=== PATIENT | female | born 1940 | race Caucasian/White ===

== ENCOUNTER 2022-07-24 10:27 | Outpatient (CLI) | payer MEDICARE, OTHER, SELFPAY ==
--- OUTSIDE RECORDS SUMMARY | 2022-07-24 10:29 | XMS_ITS | Encounter Summary ---
:1940 Author Organization [employer] Address [address] [place] [address] Care Team Providers Name Role Phone Non Pn, Clinician Primary Care Provider Unavailable Encounter Details Date Type Department Care Team Description 06/28/2021 Lab Visit [facility] Encounter for long-term curr ent use of high risk medication; [id number] [employer] [address] [place] [address] Social History Tobacco Use Types Packs/Day Years Used Date Smoking Tobacco: Never Smokeless Tobacco: Never Alcohol Use Standard Drinks/Week Comments Yes 0 (1 standard drink = 0.6 oz pure alcoho l) Sex Assigned at Date Recorded Not on file documented as of this encounter Progress Notes Denise Davila MD - 06/28/2021 10:30 AM CST Princess, the complete blood counts show minimal anemia but the level of red cell is actually improved from last time. The liver enzyme ALT is normal. The kidney function test creatinine is slightly elevated but this is stable within your prior baselines. The uric acid is now at good level above 3 but less than 5. The current dose of allopurinol 250 mg aday is the correct dose for you and you will continue taking it at the same dose. Let me know if you have a question. INE MECHANIC documented in this encounter Plan of Treatment Upcoming Encounters Date Type Specialty Care Team Description 09/29/2022 Appointment Rheumatology Kal Davila MD [address] [facility] [place] [address] [address] (Wo rk) documented as of this encounter Procedures Procedure Name Priority Date/Time Associated Comments Diagnosis CBC AND DIFFERENTIAL Routine 06/28/2021 10:37 Encounter for Re sults for this PANEL AM AIRLINE MECHANIC long-term current procedure are in use of high risk the results medication section. CREATININE / GFR Routine 06/28/2021 10:37 Encounter for Result s for this AM AIRLINE MECHANIC long-term current procedure are in use of high risk the results medication section. COMPLETE BLOOD Routine 06/28/2021 10:37 Encounter for Results for this COUNT-W/DIFF AM AIRLINE MECHANIC long-term current procedure are in use of high risk the results medication section. URIC ACID Routine 06/28/2021 10:37 Chronic tophaceous Resul ts for this AM AIRLINE MECHANIC gout procedure are i n the results section. ALT (SGPT) Routine 06/28/2021 10:37 Encounter for Results fo r this AM AIRLINE MECHANIC long-term current procedure are in use of high risk the results medication section. documented in this encounter Results (ABNORMAL) Complete Blood Count-W/Diff (06/28/2021 10:37 AM AIRLINE MECHANIC) [facility] gist Method Time Signature WBC 9.2 3.5 - 06/28/2021 [facility] 10.5 10:46 AM AIRLINE MECHANIC LABORATORY x10(9)/L RBC 3.39 (L) 3.90 - 06/28/2021 [facility] 5.03 10:46 AM AIRLINE MECHANIC [facility] x10(12)/L Hemoglobin 11.9 (L) 12.0 - 06/28/2021 [facility] 15.5 g/dL 10:46 AM [facility]LINE [facility]IC [facility] HCT 37.4 34.9 - 06/28/2021 [facility] 44.5 % 10:46 AM [facility]IC [facility] MCV 110.3 (H) 80.0 - 06/28/2021 [facility] 100.0 fL 10:46 AM AIRLINE MECHANIC [facility] MCH 35.1 (H) 27.6 - 06/28/2021 [facility] 33.3 pg 10:46 AM [facility]IC [facility] MCHC 31.8 31.5 - 06/28/2021 [facility] 35.2 g/dL 10:46 AM [facility]LINE [facility]IC [facility] RDW 13.9 11.9 - 06/28/2021 [facility] 15.5 % 10:46 AM [facility]IC [facility] Platelets 175 150 - 450 06/28/2021 [facility] x10(9)/L 10:46 AM [facility]IC [facility] Automated NRBC 0 <=0 /100 06/28/2021 [facility] WBC 10:46 AM [facility]IC [facility] Neutrophil 7.0 1.7 - 7.0 06/28/2021 [facility] Absolute 10(9)/L 10:46 AM [facility] Lymphocyte 1.2 1.0 - 4.8 06/28/2021 [facility] Absolute 10(9)/L 10:46 AM [facility] Monocytes 0.8 0.2 - 0.9 06/28/2021 [facility] Absolute 10(9)/L 10:46 AM [facility] Eosinophil 0.1 0.0 - 0.5 06/28/2021 [facility] Absolute 10(9)/L 10:46 AM [facility] Basophil 0.0 0.0 - 0.3 06/28/2021 [facility] Absolute 10(9)/L 10:46 AM [facility] Immature Gran % 0.7 (H) 0.0 - 0.5 06/28/2021 [facility] % 10:46 AM AIRLINE [facility]IC [facility] Specimen Anatomical Collection Method / Collection Time Recei christ Time (Source) Location / Volume Laterality Blood Venipuncture / 06/28/2021 10:37 1 Unknown AM AIRLINE MECHANIC 10:37 AM AIRLINE MECHANIC Denise Davila MD LAB_1 Performing Organization Address City/[facility]/ZIP Code Phon e Number [facility] [address] [place] [phone] URIC - Uric Acid (06/28/2021 10:37 AM AIRLINE MECHANIC) P athologist Signature Uric Acid 3.2 2.6 - 6.0 06/28/2021 [facility] mg/dL 11:44 AM AIRLINE MECHANIC [facility] Specimen Anatomical Collection Method / Collection Time Recei christ Time (Source) Location / Volume Laterality Blood Venipuncture / 06/28/2021 10:37 1 Unknown AM AIRLINE MECHANIC 10:37 AM AIRLINE MECHANIC Denise Davila MD LAB_1 Performing Organization Address City/State/ZIP Code Phon e Number [facility] [address] [place] [phone] ALT - Alanine Aminotransferase (06/28/2021 10:37 AM AIRLINE MECHANIC) P athologist Signature ALT (SGPT) 14 0 - 55 U/L 06/28/2021 [facility] 11:44 AM AIRLINE MECHANIC [facility] Specimen Anatomical Collection Method / Collection Time Recei christ Time (Source) Location / Volume Laterality Blood Venipuncture / 06/28/2021 10:37 1 Unknown AM AIRLINE MECHANIC 10:37 AM AIRLINE MECHANIC Denise Davila MD LAB_1 Performing Organization Address [facility] e Number [facility] [address] [place] [phone] (ABNORMAL) CREAT - Creatinine (06/28/2021 10:37 AM AIRLINE MECHANIC) Patholo gist Method Time Signature Creatinine 1.30 (H) 0.55 - 06/28/2021 [facility] 1.02 mg/dL 11:44 AM [facility]LINE [facility]IC [facility] GFR, Estimated 39 (L) >60 06/28/2021 [facility] mL/min/1.7 11:44 AM AIRLINE MECHANIC [facility] 3m2 Specimen Anatomical Collection Method / Collection Time Recei christ Time (Source) Location / Volume Laterality Blood Venipuncture / 06/28/2021 10:37 1 Unknown AM AIRLINE MECHANIC 10:37 AM AIRLINE MECHANIC Denise Davila MD LAB_1 Performing Organization Address [facility]/ZIP [facility] [address] [place] [phone] documented in this encounter Visit Diagnoses Diagnosis Encounter for long-term current use of h igh risk medication 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
--- OUTSIDE RECORDS SUMMARY | 2022-07-24 10:29 | XMS_ITS | Encounter Summary ---
:1940 Author Organization [employer] Address [address] [address] Care Team Providers Name Role Phone Non Pn, Clinician Primary Care Provider Unavailable Reason for Visit Reason Comments Refill Encounter Details Date Type Department Care Team Description 10/03/2021 Refill [facility] Denise Allred, Refill [address] [place] [address] [address] [facility] [phone] [facility] N [address] (Wo rk) Social History Tobacco Use Types Packs/Day Years Used Date Smoking Tobacco: Never Smokeless Tobacco: Never Alcohol Use Standard Drinks/Week Comments Yes 0 (1 standard drink = 0.6 oz pure alcoho l) Sex Assigned at Date Recorded Not on file documented as of this encounter Nursing Notes Isamar Rushing LPN - 10/03/2021 3:59 PM CST She takes 2.5mg daily. COMMUNICATIONS REPAIRER Porsha Loera PA-C - 10/03/2021 3:54 PM CST Please clarify if the patient is taking daily prednisone 2.5 mg? If so, please route to Dr. Davila to advise on refill request. COMMUNICATIONS REPAIRER documented in this encounter Plan of Treatment Upcoming Encounters Date Type Specialty Care Team Description 09/29/2022 Appointment Rheumatology Kal Davila MD [address] [address] (Wo rk) documented as of this encounter Visit Diagnoses Not on filedocumented in this encounter Care Teams Rag Washer Relationship Specialty Start Date End Date Non Pn, Clinician, PCP - General 03/01/18 [place] [address] documented as of this encounter
--- OUTSIDE RECORDS SUMMARY | 2022-07-24 10:29 | XMS_ITS | Clinical Summary ---
:1940 Author Organization [employer] Address [address] [place] [address] Care Team Providers Name Role Phone Non Pn, Clinician Primary Care Provider Unavailable Source Comments You are receiving this document as you are listed as the primary care provider,follow-up provider, or the patient has been referred to you for consultation.This is in compliance with the Medicare and Medicaid EHR Incentive Program,which states Providers who transition their patient to another setting of careor provider of care or refers their patient to another provider of care shouldprovide summarycare record for each transition of care or referral. [employer]pleshow Allergies Active Allergy Reactions Severity Noted Date Comments Propoxyphene Other, see comments Medium 10/21/1999 Lethargy Sulindac Hives High 06/03/2003 Medications Medication Sig Dispensed Refills Start Date End Date Status lisinopril (AKA Take 1 tablet by 90 3 02/19/2006 Active ZESTRIL) 40 MG tablet mouth daily (every 24 hours). LW Addl Instr:Indicated for: High Blood Pressure amLODIPine (NORVASC) 5 0 08/09/2017 Active MG tablet atorvastatin (LIPITOR) 0 08/09/2017 Active 40 MG tablet omeprazole (PRILOSEC) Take 20 mg by 0 01/19/2015 Active 20 MG capsule mouth. Cholecalciferol Take 2,000 Units 0 01/19/2015 Active (VITAMIN D3) 2000 by mouth. units atenolol (TENORMIN) 25 Take 25 mg by 0 01/19/2015 Active MG tablet mouth. chlorthalidone 25 mg. 0 03/21/2016 Acti ve (HYGROTON) 25 MG tablet levothyroxine Take 1 Tablet by 90 Tablet 3 06/28/2018 Active (SYNTHROID) 100 MCG mouth daily. tablet Prescribed by primary. Furosemide (LASIX OR) 0 Active predniSONE (DELTASONE) Take 3 Tablets by 21 Tablet 3 1 Active 10 MG tablet mouth daily. For gout flare p.r.n. levothyroxine Take 75 mcg by 0 12/10/2021 Active (SYNTHROID) 75 MCG mouth daily. tablet furosemide (LASIX) 20 Take 1 Tablet by 0 07/28/2021 Active MG tablet mouth as needed. allopurinol (ZYLOPRIM) Take 250 mg/d 250 Tablet 2 03/21/2022 Active 100 MG tablet (2.5 tab) all in am. predniSONE (DELTASONE) 2.5 mg (0.5 tab) 30 Tablet 0 03/21/2022 Active 5 MG tablet every other day x 05/12/22, then stop. traMADol (ULTRAM) 50 TAKE 1 TABLET 1-2 60 Tablet 0 05/25/2022 Active MG tabletIndications: TIMES DAILY Osteoarthritis of NEEDED. multiple joints, unspecified osteoarthritis type Active Problems Problem Noted Date Chronic tophaceous gout 10/01/2020 Renal insufficiency 10/01/2020 Hyperuricemia 09/10/2020 S/P total knee arthroplasty, bilateral 03/29/2018 S/P appendectomy 03/29/2018 Restless legs syndrome (RLS) 03/29/2018 Chronic left shoulder pain 03/29/2018 Psoriatic arthritis 03/29/2018 Sensorineural hearing loss 02/22/2005 Overview: LW Onset: [id number] ; Hearing Loss Sensorineural Undiagnosed cardiac murmurs 02/22/2005 Overview: LW Modifier: functional LW Onset: [id number] ; Heart Murmur Right bundle branch block 02/22/2005 Overview: LW Onset: [id number] Obesity 05/04/2004 Overview: LW Onset: [id number] Essential hypertension 01/17/2003 Overview: Hypertension Hypothyroidism 01/17/2003 Overview: Hypothyroidism Acquired Osteoarthritis 01/17/2003 Overview: DJD Encounters Date Type Specialty Care Team Description 05/25/2022 Refill Rheumatology Denise Davila MD Refill from Last 3 Months Immunizations Name Administration Dates Next Due Flu Vac Preserv Free (3+yrs) 04/21/2013, 04/28/2009, 006, 08/10/2005, 05/04/2004 Influenza IIV3 (Trivalent) Fluzone 06/15/2020, 07/01/2019, 1 , Highdose, 65+ Yrs ([address]) 05/15/2018, 05/30/2017, 05/15/2016 , 04/28/2014 Influenza IIV4 (Quadrivalent) 06/15/2020 Fluzone, 65+ Yrs Influenza, Unspecified Formulation 06/15/2020, 05/21/2006, 1 , 05/04/2004, 06/05/2003, 07/25/2002, 08/08/2001 PCV13 (Prevnar) 05/04/2015 PPSV23 (Pneumovax) 02/19/2006 Pfizer (Comirnaty) COVID-19, 12+ Yrs 07/08/2021, 10/11/2020, 09/20/2020 Purple Top Td 07/19/1998 Tdap 09/24/2019, 03/26/2009 Zoster (Zostavax) 04/01/2009 Zoster RZV (Shingrix) 10/18/2018, 08/09/2018 Social History Tobacco Use Types Packs/Day Years Used Date Smoking Tobacco: Never Smokeless Tobacco: Never Alcohol Use Standard Drinks/Week Comments Yes 0 (1 standard drink = 0.6 oz pure alcoho l) Sex Assigned at Date Recorded Not on file Last Filed Vital Signs Vital Sign Reading Time Taken Comments Blood Pressure 141/88 03/21/2022 1:23 PM CDT Pulse 71 03/21/2022 1:23 PM CDT Temperature 35.8 ??C (96.4 ??F) 03/21/2022 1:23 PM CDT Respiratory Rate - - Oxygen Saturation - - Inhaled Oxygen Concentration - - Weight 84.9 kg (187 lb 1.6 oz) 06/28/2021 10:52 AM EXTRACTIONS TECHNOLOGIST Height 164.5 cm (5' 4.75) 03/29/2018 9:30 AM CDT Body Mass Index 31.38 03/29/2018 9:30 AM CDT Plan of Treatment Upcoming Encounters Date Type Specialty Care Team Description 09/29/2022 Appointment Rheumatology Kal Davila MD [address] [place] [address] [address] (Wo rk) Health Maintenance Due Date Last Done Comments Medicare Annual Wellness 1940 Visit Dexa 02/27/2005 COVID-19 Vaccine (4 - 09/02/2021 07/08/2021, 10/11/2020, Booster for Pfizer series) 09/20/2020 Influenza (#1) 2022 07/08/2021, 06/15/2020, 06/15/2020, Additional history exists DTaP/Tdap/Td (3 - Tdap) 09/24/2029 09/24/2019, 03/26/2009, 07/19/1998 HepA Aged Out 11/20/2012, 10/17/2012 No longer eligible based on patient 's age to complete this topic Pneumococcal 65+ Yrs Completed 05/04/2015, 02/19/2006 Zoster/Shingles Completed 10/18/2018, 08/09/2018, 07/01/2009, Additional history exists HepB Aged Out No longer eligib le based on patient 's age to complete this topic Hib Aged Out No longer eligib le based on patient 's age to complete this topic IPV (Polio) Aged Out No longer eligib le based on patient 's age to complete this topic MCV4 Aged Out No longer eligib le based on patient 's age to complete this topic Insurance Payer Benefit Plan / Subscriber ID Effective Dates Phone Addre ss Type Group MEDICARE MEDICARE [id number] 2005-Jeanine morris FOR [id number] 2018-Jeanine [phone] [address] [address] Care Teams Lens Grinder Relationship Specialty Start Date End Date Non Pn, Clinician, PCP - General 03/01/18 [place] [address]
--- OUTSIDE RECORDS SUMMARY | 2022-07-24 10:29 | XMS_ITS | Encounter Summary ---
:1940 Author Organization [facility] Address [address] [place] [address] Care Team Providers Name Role Phone Non Pn, Clinician Primary Care Provider Unavailable Encounter Details Date Type Department Care Team Description 12/13/2021 Lab Visit [facility] Chronic tophaceous gout [address] [place] [address] Social History Tobacco Use Types Packs/Day Years Used Date Smoking Tobacco: Never Smokeless Tobacco: Never Alcohol Use Standard Drinks/Week Comments Yes 0 (1 standard drink = 0.6 oz pure alcoho l) Sex Assigned at Date Recorded Not on file documented as of this encounter Plan of Treatment Upcoming Encounters Date Type Specialty Care Team Description 09/29/2022 Appointment Rheumatology Kal Davila MD [address] [facility] [address] [address] (Wo rk) documented as of this encounter Procedures Procedure Name Priority Date/Time Associated Diagnosis Comme nts URIC ACID Routine 12/13/2021 2:27 PM Chronic tophaceous Res ults for this CDT gout procedure are i n the results section . 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
--- OUTSIDE RECORDS SUMMARY | 2022-07-24 10:29 | XMS_ITS | Encounter Summary ---
:1940 Author Organization [employer] [facility] Address [address], [place] [address] Care Team Providers Name Role Phone Non Pn, Clinician Primary Care Provider Unavailable Reason for Visit Reason Comments Follow-up Encounter Details Date Type Department Care Team Description 06/28/2021 Office Visit [facility] tophac eous gout (Primary Dx); Rheumatology MD Denise Psoriatic arthritis (HRC); [address] Encounter for long-term curr [place] [address] Bl [phone] [place] [address] (Wo rk) Social History Tobacco Use Types Packs/Day Years Used Date Smoking Tobacco: Never Smokeless Tobacco: Never Alcohol Use Standard Drinks/Week Comments Yes 0 (1 standard drink = 0.6 oz pure alcoho l) Sex Assigned at Date Recorded Not on file documented as of this encounter Last Filed Vital Signs Vital Sign Reading Time Taken Comments Blood Pressure 155/74 06/28/2021 10:52 AM MACHINE ASSEMBLER Pulse 66 06/28/2021 10:52 AM MACHINE ASSEMBLER Temperature - - Respiratory Rate - - Oxygen Saturation - - Inhaled Oxygen Concentration - - Weight 84.9 kg (187 lb 1.6 oz) 06/28/2021 10:52 AM MACHINE ASSEMBLER Height - - Body Mass Index 31.38 03/29/2018 9:30 AM CDT documented in this encounter Patient Instructions Patient InstructionsDenise Davila MD - 06/28/2021 11:00 AM MACHINE ASSEMBLER Please remind yourself in the calendar that you have standing order blood test monitoring for methotrexate approximately every 3 months. The orders are in the computer but you need to go to the labs tohave them done. INE ASSEMBLER documented in this encounter Progress Notes Denise Davila MD - 06/28/2021 11:00 AM CST SUBJECTIVE: Follow-up for tophaceous gout, psoriasis with prior clinical history of possible psoriatic arthritis. History of present illness: This is the three-month follow-up for the patient. I had to cut down thedose of allopurinol from 300 mg to the current dose of 250 mg a day since her serum uric acid was 2.8 at the last clinic visit. We would like to achieve level less than 5 but not less than 3. The lowerdose has been well tolerated. The tophi over her fingers have gone away. She has not had a gout attack. She also informed me that she does not regularly take colchicine 0.6 mg every other day due to significant loose stool. Thankfully, she has not had a gout attack to require the use of prednisone. I am also in the process of tapering her methotrexate concerning that prior clinical psoriatic arthritis might have been gout. She has tapered methotrexate down to 10 mg weekly started this week. Thankfully, her psoriasis has not been active and she has not had a recurrence swollen joint. She is still working with her spine doctor to help manage her lower back pain. This has been presentfor the past several months. She was offered to do surgery but has not decided to go through it yet.She is doing physical therapy currently. She has planned to have influenza vaccine and the third dose of messenger RNA COVID vaccine at her local pharmacy. She is updated with pneumococcal vaccines. Her blood test monitoring for methotrexate and uric acid this morning are still pending. Past medical history, family and social history, current medications and adverse reactions were updated in EMR. Physical exams: BP (!) 155/74 (BP Location: Right Arm, BP Cuff Size: Regular) Pulse 66 Wt 187 lb1.6 oz (84.9 kg) BMI 31.38 kg/m?? General appearance: An elderly female who was not in acute physical distress. Skin: Completely resolved tophi over her fingers. No new tophus/tophi. No active psoriasis. Musculoskeletal exams: All 4 extremities were examined. No significant synovitis/inflammatory arthritis/dactylitis or effusion in any joint. Osteoarthritic changes finger knuckles. I Assessment and plan: 1. Chronic tophaceous gout, clinically resolved. 2. Prior history of psoriatic arthritis. Clinically inactive while tapering methotrexate. 3. Chronic long-term high-risk medication and monitoring-methotrexate. Pain is rated as 5.5. RAPID 3 score is 14.2. Her tophi have melted away completely on examination. It is important to adjust the dose of allopurinol to keep serum uric acid less than 5 but not less than 3. The result is still pending and I will let her know. She will continue allopurinol to 150 mg a day in the meantime. Since colchicine seems tocause significant GI adverse reaction, I told her to discontinue it. She will use prednisone only asneeded for a future rare gout flare. I think the we should make the best attempt to taper her off methotrexate while clinically monitor her. There is a possibility that prior swollen joint with clinical diagnosis of psoriatic arthritis could potentially be from gout attack. I will continue to taper her off methotrexate. Wrote the tapering instruction for her. She will finish it off at the end of the September of 2021. She can also discontinue folic acid when she is done with methotrexate. I told her that it is okay for her to have influenza and the third dose of messenger RNA COVID vaccines on the same day but they should be given on different sites. Follow-up again in 6 months. Earlier if she is not doing well. Total time is 30 minutes, 20 minutes counseling. 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
--- OUTSIDE RECORDS SUMMARY | 2022-07-24 10:29 | XMS_ITS | Encounter Summary ---
:1940 Author Organization [facility] Address [address] [address] Care Team Providers Name Role Phone Non Pn, Clinician Primary Care Provider Unavailable Reason for Visit Reason Comments Refill Encounter Details Date Type Department Care Team Description 07/12/2021 Refill [place] [facility] Giovanna Allred, Refill [address] [place] [address]49 [facility] [phone] [facility] [address] (Wo rk) Social History Tobacco Use Types Packs/Day Years Used Date Smoking Tobacco: Never Smokeless Tobacco: Never Alcohol Use Standard Drinks/Week Comments Yes 0 (1 standard drink = 0.6 oz pure alcoho l) Sex Assigned at Date Recorded Not on file documented as of this encounter Nursing Notes Oscar Lantigua RN - 07/12/2021 4:12 PM CST LV 06/28/21 [place] 12/27/21 Current Prednisone dosage: 2.5mg per day per patient phone call. Renewed medication per medication refill protocol. Requested Prescriptions Signed Prescriptions Disp Refills ??? predniSONE (DELTASONE) 5 MG tablet 30 Tablet 0 Sig: TAKE ONE-HALF (1/2) TABLET DAILY Authorizing Provider: GIOVANNA SHEPARD Ordering User: OSCAR LANTIGUA IER HOST/HOSTESS documented in this encounter Plan of Treatment Upcoming Encounters Date Type Specialty Care Team Description 09/29/2022 Appointment Rheumatology Kal Shepard MD [address] [id number] (Wo rk) documented as of this encounter Visit Diagnoses Not on filedocumented in this encounter Care Teams Dairy Supplies Sales Representative Relationship Specialty Start Date End Date Non Pn, Clinician, PCP - General 03/01/18 [place] [address] documented as of this encounter
--- OUTSIDE RECORDS SUMMARY | 2022-07-24 10:29 | XMS_ITS | Encounter Summary ---
:1940 Author [facility] Address [address] [place] [address] Care Team Providers Name Role Phone Non Pn, Clinician Primary Care Provider Unavailable Encounter Details Date Type Department Care Team Description 03/21/2022 Lab Visit [facility] Chronic tophaceous gout [address] [place] [address] Social History Tobacco Use Types Packs/Day Years Used Date Smoking Tobacco: Never Smokeless Tobacco: Never Alcohol Use Standard Drinks/Week Comments Yes 0 (1 standard drink = 0.6 oz pure alcoho l) Sex Assigned at Date Recorded Not on file documented as of this encounter Plan of Treatment Upcoming Encounters Date Type Specialty Care Team Description 09/29/2022 Appointment Rheumatology Kal Davila MD [address] [facility] N [address] (Wo rk) documented as of this encounter Procedures Procedure Name Priority Date/Time Associated Diagnosis Comme nts URIC ACID Routine 03/21/2022 2:00 PM Chronic tophaceous Res ults for this CDT gout procedure are i n the results section . 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
--- OUTSIDE RECORDS SUMMARY | 2022-07-24 10:29 | XMS_ITS | Encounter Summary ---
:1940 Author Organization [employer] Address [address] [place] [address] Care Team Providers Name Role Phone Non Pn, Clinician Primary Care Provider Unavailable Reason for Visit Reason Comments Refill Encounter Details Date Type Department Care Team Description 05/25/2022 Refill [place] [facility] ogDenise Maldonado Refklaudia [address] [facility] [place], [place] [address] [address] [facility] [phone] [address] [id number] (Wo rk) Social History Tobacco Use Types Packs/Day Years Used Date Smoking Tobacco: Never Smokeless Tobacco: Never Alcohol Use Standard Drinks/Week Comments Yes 0 (1 standard drink = 0.6 oz pure alcoho l) Sex Assigned at Date Recorded Not on file documented as of this encounter Nursing Notes Margarita Cameron RN - 05/25/2022 11:04 AM CDT LV: 03/21/22 [place]: 09/29/22 Last filled 12/13/21 for #60 tabs. Unable to fill per refill protocol, routing to provider. documented in this encounter Plan of Treatment Upcoming Encounters Date Type Specialty Care Team Description 09/29/2022 Appointment Rheumatology Kal Davila MD [address] [facility] [place] [id number] (Wo rk) documented as of this encounter Visit Diagnoses Diagnosis Osteoarthritis of multiple joints, unspe cified osteoarthritis type documented in this encounter Care Teams Mortgage Processor Relationship Specialty Start Date End Date Non Pn, Clinician, PCP - General 03/01/18 [place] [address] documented as of this encounter
--- OUTSIDE RECORDS SUMMARY | 2022-07-24 10:29 | XMS_ITS | Encounter Summary ---
:1940 Author Organization [facility] Address [address], [place] [address] Care Team Providers Name Role Phone Non Pn, Clinician Primary Care Provider Unavailable Reason for Referral (Routine) - New Request Specialty Diagnoses / Procedures Referred By Contact Refer red To Contact Diagnoses Chronic tophaceous gout [place], [place], Procedures Methylprednisolone 20 Mg Inj MD Latisha mena [place], [place] [address] Referral ID Status Reason Start Date Expiration Date Visits V isits Requested Authorized [id number] New Request 12/13/2021 03/14/2023 1 1 (Routine) - New Request Specialty Diagnoses / Procedures Referred By Contact Refer red To Contact Diagnoses Bicipital tendonitis of shoulder, right Bicipital tendonitis of shoulder, left [place], [place], Procedures Methylprednisolone 40 Mg Inj MD Latisha mena [place], [place] [address] Referral ID Status Reason Start Date Expiration Date Visits V isits Requested Authorized [id number] New Request 12/13/2021 03/14/2023 1 1 Reason for Visit Reason Comments Follow-up Encounter Details Date Type Department Care Team Description 12/13/2021 Office Visit Jose Davila, Chronic tophac eous gout (Primary Dx); Rheumatology MD Denise Bicipital tendonitis of shoulder, right; [address] [place] Bicipital tendonitis of shou lder, left; [place] [address] Blvd Osteoarthritis of multiple joints, unspe cified osteoarthritis type [phone] [place], [place] [phone] Social History Tobacco Use Types Packs/Day Years Used Date Smoking Tobacco: Never Smokeless Tobacco: Never Alcohol Use Standard Drinks/Week Comments Yes 0 (1 standard drink = 0.6 oz pure alcoho l) Sex Assigned at Date Recorded Not on file documented as of this encounter Last Filed Vital Signs Vital Sign Reading Time Taken Comments Blood Pressure 120/69 12/13/2021 1:45 PM CDT Pulse 71 12/13/2021 1:45 PM CDT Temperature 35.3 ??C (95.5 ??F) 12/13/2021 1:45 PM CDT Respiratory Rate - - Oxygen Saturation - - Inhaled Oxygen Concentration - - Weight - - Height - - Body Mass Index - - documented in this encounter Patient Instructions Patient InstructionsDenise Davila MD - 12/06/2021 8:07 AM CDT Get the 4th dose of COVID vaccine at your local pharmacy at least 4 months after the last one. Hold one dose of methotrexate after the vaccination. No need to hold folic acid. documented in this encounter Progress Notes Denise Davila MD - 12/13/2021 2:00 PM CDT SUBJECTIVE: Follow-up for clinic tophaceous gout, history of possible psoriatic arthritis. History of present illness: It has been about 6 months since I last saw her. I am in the process of tapering her methotrexate. She was found to have tophaceous gout a year ago and since I put her on allopurinol, her inflammatory arthritis has been under good control. I then tapered her methotrexate tofind out whether prior inflammatory arthritis might flare up. Fortunately, I was able to taper her off methotrexate completely in September of 2021. She is now on allopurinol to 150 mg a day which keep serum uric acid less than 5 but not less than 3. The tophi over the right third finger have completely resolved. She still has a small 1 over the left third PIP joint which is also smaller but is still p alpable. There is no new tophus. Six weeks ago, she underwent left knee arthroplasty revision. She is still recovering from it. She was also told that she will eventually need right arthroplasty revision in the near future. She has been using her shoulders more to push herself up from the chair and this has caused anterior shoulder pain while doing it but not at rest. This symptoms over the shoulders are present all day long withoutmorning accentuation. She takes acetaminophen which is helpful slightly but not adequately. She alsotakes tramadol as needed and would like to have a refill since this seems to be somewhat helpful forher. She has been updated with annual influenza, pneumococcal and 3 doses of messenger RNA COVID vaccines. Past medical history, family and social history, current medications and adverse reactions were updated in EMR. Physical exams: BP 120/69 (BP Location: Left Arm, BP Cuff Size: Large) Pulse 71 Temp (!) 95.5 ??F (35.3 ??C) (Skin) General appearance: An elderly female who was not in acute physical distress. Skin: Tophi over the right third finger have gone away completely. 2 mm palpable small nodule over the radial side of the dorsal left third PIP joint with possible synovitis. Musculoskeletal exams: All 4 extremities were examined. Small indurated tophus with possible minimalsynovitis of the left third PIP joint. Osteoarthritic changes finger knuckle joints. Moderate tenderness over bilateral bicipital tendon grooves. Positive Speed's test bilaterally. Status post bilateral knee arthroplasties without clinical effusion. No significant synovitis/inflammatory arthritis/dactylitis or effusion in any peripheral joints. Assessment and plan: 1. Chronic tophaceous gout. 2. Bilateral bicipital tendinitis. Pain is rated as is 7.5. RAPID 3 score is 15. She has been off methotrexate for the past almost 3 months and there is still no recurrent psoriasisor obvious clinical inflammatory arthritis. The only area that seems to be in flares over her left third PIP joint near to tophus area and that could potentially be from chronic gout over this area instead of psoriatic arthritis. The prior inflammatory arthritis of her fingers might have been the undiagnosed polyarticular gout. The symptoms over anterior shoulders are typical for bicipital tendinitis. This is most likely the result of repetitive use to push herself up from the chair while recovering from the recent left knee surgery. I suggest that she have the blood test for serum uric acid today to make sure that the current allopurinol dose of 250 mg a day is still the right dose to keep serum uric acid less than 5 but not less than 3. For the small tophus over the left third PIP joint with mild synovitis, I suggested cortisoneinjection. Similarly for her bicipital tendinitis. The injections could potentially minimize the useof tramadol for her. There were offered to her and she agreed to pursue. Consent was verbally obtained. Indication, contraindications and complications including pain/bleeding infection were discussed. Bilateral bicipital tendon grooves were prepped in a sterile fashion. Ethyl chloride spray was used as a local anesthetic agent. 0.5 mL 1% lidocaine mixed with 20 mg of methy lprednisolone was infiltrated overlying bicipital tendon over bicipital tendon groove on each side without acute complication. Similar procedure was applied over the left third PIP joint. 0.125 mL 1% lidocaine mixed with 20 mg methylprednisolone was injected into the left third PIP joint without acute complication. I will correspond with her regarding the test result and will help her adjust dose of allopurinol ifneeded. She will not need blood test monitoring for methotrexate anymore. Refilled tramadol for her. Follow-up again about 3 months. Total time is 30 minutes, 20 minutes counseling, 7 minutes procedures. documented in this encounter Plan of Treatment Upcoming Encounters Date Type Specialty Care Team Description 09/29/2022 Appointment Rheumatology Kal Davila MD [address] [facility] [place] [address] (Wo rk) Scheduled Orders Name Type Priority Associated Diagnoses Order S chedule Uric Acid Lab Routine Chronic tophaceous gout ever y 3 months for 4 Occurrences starting 2021 until 12/06/2022, 1 completed documented as of this encounter Results Uric Acid (12/13/2021 2:27 PM CDT) P athologist Signature Uric Acid 3.1 2.6 - 6.0 12/13/2021 [place] mg/dL 3:56 PM CDT LABORATORY Specimen Anatomical Collection Method / Collection Time Recei christ Time (Source) Location / Volume Laterality Blood Venipuncture / 12/13/2021 2:27 12/13/2021 2:27 Unknown PM CDT PM CDT Denise Davila MD LAB_1 Performing Organization Address City/State/ZIP Code Phon e Number [facility] [address] [place] [address] documented in this encounter Visit Diagnoses Diagnosis Chronic tophaceous gout - Primary 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
--- OUTSIDE RECORDS SUMMARY | 2022-07-24 10:29 | XMS_ITS | Encounter Summary ---
:1940 Author Organization [employer] Address [address], [place] [address] Care Team Providers Name Role Phone Non Pn, Clinician Primary Care Provider Unavailable Reason for Visit Reason Comments Follow-up Encounter Details Date Type Department Care Team Description 03/21/2022 Office Visit [facility] tophac eous Rheumatology MD Denise gout (Primary Dx) [address] [address] [phone] [place], [place] [id number] (Wo rk) Social History Tobacco Use Types [...] Index - - documented in this encounter Progress Notes Denise Davila MD - 03/21/2022 1:30 PM CDT SUBJECTIVE: Follow-up for chronic tophaceous gout. History of present illness: This is the three-month follow-up for the patient. She currently takes allopurinol 250 mg a day. When she developed tophi, I decided to taper her off methotrexate for the initially suspected psoriatic arthritis. We have been able to taper methotrexate completely without a flare of inflammatory arthritis. Looking back, her prior inflammatory arthritis might have been secondary to gouty arthritis. The tophi over the right third finger has gone away completely. Her last uricacid was checked about 3 months ago and that was 3.1. She has not had a gout attack since I last sawher and has not developed a new tophus. She has had bilateral knee arthroplasties. The right knee was 22 years ago. The left knee TKA the first time was 27 years ago and the second time was in 10/2021. She had a fall onto both knees about 1 month ago at her great- grandchildren birthday. The left knee was slightly bruise and this has been ping nful on weight-bearing activities. She is about to see her orthopedic knee surgeon next week. Past medical history, family and social history, current medications andadverse reactions were updated in EMR. Physical exams: BP (!) 141/88 (BP Location: Left Arm, BP Cuff Size: Regular) Pulse 71 Temp (!) 96.4 ??F (35.8 ??C) (Skin) General appearance: A middle-aged female who was not in acute physical distress. Skin: No clinical tophus/tophi. Musculoskeletal exams: All 4 extremities were examined. Osteoarthritic changes finger knuckles. Status post bilateral knee arthroplasty. A faint bruise over the left anterior knee and minimal left prosthetic knee effusion. No significant synovitis/inflammatory arthritis/dactylitis or effusion in any other remaining joints. Assessment and plan: Chronic tophaceous gout. 2. 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 Pain is rated as 6.5. RAPID 3 score is 17. For her gout, she has continued to do well. The tophus has dissolved completely. Will make sure thather serum uric acid is not less than 3 but less than 5. Will check her serum uric acid today. She will continue allopurinol 250 mg a day in the meantime and I will keep her informed on the test resultsI will let her know if we need to adjust the dose of serum uric acid accordingly. I will leave the decision as to how to evaluate her left prosthetic knee effusion to her knee surgeon. Since she has developed worsening pain after a recent fall, this should be evaluated for a possible prosthetic loosening. Follow-up again in 6 months, earlier if she is not doing well. Total time is 20 minutes, 15 minutes counseling. documented in this encounter Plan of Treatment Upcoming Encounters Date Type Specialty Care Team Description 09/29/2022 Appointment Rheumatology Kal Davila MD [address] [facility] [place] [id number] (Wo rk) documented as of this encounter Results Uric Acid (03/21/2022 2:00 PM CDT) P athologist Signature Uric Acid 3.1 2.6 - 6.0 03/21/2022 [place] mg/dL 4:13 PM CDT LABORATORY Specimen Anatomical Collection Method / Collection Time Recei christ Time (Source) Location / Volume Laterality Blood Venipuncture / 03/21/2022 2:00 03/21/2022 2:00 Unknown PM CDT PM CDT Denise Davila MD LAB_1 Performing Organization Address City/State/ZIP Code Phon e Number [facility] [address] [place] [address] documented in this encounter Visit Diagnoses Diagnosis Chronic tophaceous gout - Primary 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
--- OUTSIDE RECORDS SUMMARY | 2022-07-24 10:30 | XMS_ITS | Encounter Summary ---
:1940 Author Organization [employer] Address [address], [place] [address] Care Team Providers Name Role Phone Non Pn, Clinician Primary Care Provider Unavailable Reason for Referral (Routine) - Closed Specialty Diagnoses / Procedures Referred By Contact Refer red To Contact Diagnoses Psoriatic arthritis (HRC) Nodule of finger of left hand Denise Davila, Procedures Triamcinolone Acet Inj Nos: (per 10 mg) [address] [place], [place] [address] Referral ID Status Reason Start Date Expiration Date Visits Requ ested Visits Authorized [id number] Closed 09/10/2020 12/10/2021 1 1 [employer] Reason for Visit Reason Comments Follow-up Encounter Details Date Type Department Care Team Description 09/10/2020 Office Visit Neha Davila, Psoriatic arth ritis (HRC) (Primary Dx); Rheumatology MD Denise High risk medication use; [address] Osteoarthritis of multiple j oints, unspecified osteoarthritis type; [place] [address] [address]vd Nodule of finger of left hand; [phone] [place], [place] Hyperurice richard [address] Social History Tobacco Use Types Packs/Day Years Used Date Smoking Tobacco: Never Smokeless Tobacco: Never Alcohol Use Standard Drinks/Week Comments Yes 0 (1 standard drink = 0.6 oz pure alcoho l) Sex Assigned at Date Recorded Not on file documented as of this encounter Last Filed Vital Signs Vital Sign Reading Time Taken Comments Blood Pressure 143/57 09/10/2020 2:44 PM [employer] Pulse 73 09/10/2020 2:44 PM [employer] Temperature 36.3 ??C (97.3 ??F) 09/10/2020 2:44 PM [employer] Respiratory Rate - - Oxygen Saturation - - Inhaled Oxygen Concentration - - Weight - - Height - - Body Mass Index - - documented in this encounter Patient Instructions Patient InstructionsDenise Davila MD - 09/10/2020 2:45 PM [employer] Get online and an account with [email or web address] at [email or web address] documented in this encounter Progress Notes Denise Davila MD - 09/10/2020 2:45 PM CST SUBJECTIVE: Follow-up for clinical psoriatic arthritis. History of present illness: This is a 6-month follow-up for the patient. She currently takes methotrexate 20 mg weekly, folic acid 1 mg a day and prednisone 2.5 mg a day. The palmar psoriasis has gone away since we gave her methotrexate and prednisone. She reported having trouble with bending the leftthird PIP joint which is also slightly swollen. On visual inspection, there is a faint yellowish nodule that which might be suggestive of tophus/tophi. She has moderate chronic kidney disease with GFR approximately 41 and also takes hydrochlorothiazide as an antihypertensive regimen and occasional Lasix if she has swelling. She has never had an acute podagra, however. Her serum uric acid was 8.3 whenthis was last checked in 2018. The other joints are not swollen. However, she also has suffered frompain related to osteoarthritis over her fingers, lower back and hip areas. She cannot take anti-inflammatory medication due to renal insufficiency. The use of Tylenol does not help for her at all. She used to take tramadol and would like to consider this medication again as tramadol once to twice a day seemed to be quite helpful for her. It was well tolerated without significant drowsiness. She is aware that tramadol is a pain medication and she will not mix it with alcohol or other sedative/benzodiazepine. Past medical history, family and social history, current medications and adverse reactions were updated in EMR. Physical exams: BP (!) 143/57 (BP Location: Left Arm, BP Cuff Size: Regular) Pulse 73 Temp 97.3 ??F (36.3 ??C) (Temporal Artery) General appearance: A middle-aged female who was not in acute physical distress. Skin: No psoriasis over her palms or anywhere else. 2-3 small yellowish nodules over dorsal left third PIP joint, possible tophi. No similar tophus/tophi anywhere else. Musculoskeletal exams: All 4 extremities were examined. Moderate synovitis left third PIP joint. Overlying suspected tophi as described above. Osteoarthritic changes finger knuckle joints. Osteoarthritic changes over toe IP joints. Patellar crepitus without signs of inflammation or effusion. No significant synovitis/inflammatory arthritis/dactylitis or effusion in any other remaining joints. Assessment and plan: 1. Psoriatic arthritis. 2. 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 3. Background history of stage 3 chronic kidney disease requiring diuretic as an antihypertensive medication as needed Lasix for swelling. 4. Hyperuricemia. 5. Generalized osteoarthritis. 6. Chronic long-term high-risk medication and monitoring. The patient has 1 swollen joint over the left third PIP joint. Over this area, they also small whitish yellowish nodules which might be suggestive of tophi. This patient certainly has risk factors including chronic kidney disease with estimated GFR of 41, and diuretic treatment and hyperuricemia. And therefore, arthrocentesis will be helpful to help confirm this diagnosis. Intra-articular cortisone injection can also be helpful since she has only 1 swollen inflamed joint. For her psoriatic arthritis, this is under good control currently except for the left third PIP joint which is slightly swollen and this might be from gout as described above. The current methotrexate seems to be helpful. Psoriasis has gone away completely. No need to change the long-term treatment and she will continue methotrexate 20 mg weekly together with folic acid 1 mg a day. We also mutually agree to stay on prednisone 2.5 mg a day in the meantime. Discussed with her about my clinical impression as above. We discussed about the arthrocentesis which will be diagnostic and therapeutic. This was offered to her and she agreed to pursue. Indication, contraindications and complications including pain/bleeding infection were discussed. Left third PIP joint was prepped in a sterile fashion. Ethyl chloride spray was used as local anesthetic agent. 20 gauge needle was introduced into the left third PIP nodules with negative suction force. Small amount of fluid was obtained this was placed on a slight for crystal analysis. 0.125 mL 1% lidocaine mixed with 10 mg of methylprednisolone was injected into the left third PIP joint without acute complication. I suggested that she have a clinical follow-up in 2 weeks with Porsha.. 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 I would like to seeher back in person in about 3 months. She is due to have a blood test monitoring but she has left the clinic. We will remind her to have blood test monitoring for CBC, ALT in creatinine for methotrexate and additional uric acid for the newbaseline. Total time 40 minutes, 25 minutes counseling, 10 minutes procedure. [employer] Denise Davila MD - 09/10/2020 2:45 PM CST [place], the aspirate from the left 3rd finger nodule is negative for gout (no uric acid crystals seen). I will continue to monitor this to see if there is a new finding in different other area or these nodules are bigger. In that case, I am planning to put a needle into it again. (as the small nodule(s) might miss the needle.) I hope the cortisone injection has helped. [employer] documented in this encounter Plan of Treatment Upcoming Encounters Date Type Specialty Care Team Description 09/29/2022 Appointment Rheumatology Kal Davila MD [address] [place] [address] [address] (Wo rk) documented as of this encounter Procedures Procedure Name Priority Date/Time Associated Diagnosis Comme nts CRYSTALS,SYNOVIAL Routine 09/10/2020 3:48 PM Nodule of finger of Results for this [employer] left hand procedure are i n the results section. documented in this encounter Results (ABNORMAL) URIC - Uric Acid (09/24/2020 12:14 PM [employer]) P athologist Signature Uric Acid 9.6 (H) 2.6 - 6.0 09/24/2020 [facility] mg/dL 2:00 PM [employer] LABORATORY Specimen Anatomical Collection Method / Collection Time Recei christ Time (Source) Location / Volume Laterality Blood Venipuncture / 09/24/2020 12:14 Unknown PM [employer] 12:14 PM [employer] Denise Davila MD LAB_1 Performing Organization Address City/State/ZIP Code Phon e Number [facility] [address] [place] [address] SYCRY - Synovial Fluid Crystals (09/10/2020 3:48 PM [employer]) [facility] gist Method Time Signature Synovial Finger, left 09/10/2020 [facility] Source middle 10:07 PM LABORATORY [employer] Crystals, No Crystals No Crystals 09/10/2020 [facility] Synovial Seen Seen 10:07 PM LABORATORY [employer] Specimen Anatomical Collection Method Collection Time Receive d Time (Source) Location / / Volume Laterality Synovial Fluid ENTIRE FINGER / 09/10/2020 3:48 PM 08/14 5:00 Unknown [employer] PM [employer] Denise Davila MD LAB_1 Performing Organization Address City/State/ZIP Code Phon e Number [facility] [address] [place] [address] documented in this encounter Visit Diagnoses Diagnosis Psoriatic arthritis (HRC) - Primary Psoriatic arthropathy High risk medication use Encounter for long-term (current) use of other medications Osteoarthritis of multiple joints, unspe cified osteoarthritis type Nodule of finger of left hand Hyperuricemia Other abnormal blood chemistry documented in this encounter Care Teams Solution Design And Analysis Manager Relationship Specialty Start Date End Date Non Pn, Clinician, PCP - General 03/01/18 [place] [address] documented as of this encounter
--- OUTSIDE RECORDS SUMMARY | 2022-07-24 10:30 | XMS_ITS | Encounter Summary ---
:1940 Author Organization [employer] Address [address] [place] [address] Care Team Providers Name Role Phone Non Pn, Clinician Primary Care Provider Unavailable Reason for Visit Reason Comments PHONE CALL TO PATIENT Medication Questions Encounter Details Date Type Department Care Team Description 02/09/2020 Telephone [facility] [address], PHONE [place] TO PATIENT; Rheumatology MD Denise Medication Questions [address] [facility] [place] [address] [phone] (Wo rk) Social History Tobacco Use Types Packs/Day Years Used Date Smoking Tobacco: Never Smokeless Tobacco: Never Alcohol Use Standard Drinks/Week Comments Yes 0 (1 standard drink = 0.6 oz pure alcoho l) Sex Assigned at Date Recorded Not on file documented as of this encounter Nursing Notes Shauna Lindsay LPN - 02/09/2020 3:16 PM CDT Pt called saying [facility] will not fill her prednisone and they will be [facility], [facility] to [facility] pharmacology professor Had to do a reorder. Pt is with . documented in this encounter Plan of Treatment Upcoming Encounters Date Type Specialty Care Team Description 09/29/2022 Appointment Rheumatology Kla Davila MD [address] [facility] [place] N [address] (Wo rk) documented as of this encounter Visit Diagnoses Not on filedocumented in this encounter Care Teams Pyrotechnist Relationship Specialty Start Date End Date Non Pn, Clinician, PCP - General 03/01/18 [place] [address] documented as of this encounter
--- OUTSIDE RECORDS SUMMARY | 2022-07-24 10:30 | XMS_ITS | Encounter Summary ---
:1940 Author Organization [employer] Address [address] [place] [address] Care Team Providers Name Role Phone Non Pn, Clinician Primary Care Provider Unavailable Reason for Visit Reason Comments RESULTS, TEST Encounter Details Date Type Department Care Team Description 05/13/2020 Notes/Orders [place] Rheumatol uriel Davila, [address] [facility] [place] [address] [address] [phone] [address] Y[address]IRA [place] N [id number] (Wo rk) Social History Tobacco Use Types Packs/Day Years Used Date Smoking Tobacco: Never Smokeless Tobacco: Never Alcohol Use Standard Drinks/Week Comments Yes 0 (1 standard drink = 0.6 oz pure alcoho l) Sex Assigned at Date Recorded Not on file documented as of this encounter Progress Notes Denise Davila MD - 05/13/2020 4:22 PM CDT Outside labs: On 05/13/2020, normal ALT, serum creatinine 1.7, white blood cells 7.62, hemoglobin 11.8, platelet count 209. documented in this encounter Plan of Treatment Upcoming Encounters Date Type Specialty Care Team Description 09/29/2022 Appointment Rheumatology Kal Davila MD [address] [place] N [id number] (Wo rk) documented as of this encounter Visit Diagnoses Not on filedocumented in this encounter Care Teams Sql Engineer Relationship Specialty Start Date End Date Non Pn, Clinician, PCP - General 03/01/18 [place] [address] documented as of this encounter
--- OUTSIDE RECORDS SUMMARY | 2022-07-24 10:30 | XMS_ITS | Encounter Summary ---
:1940 Author Organization [employer] Address [address] [place] [address] Care Team Providers Name Role Phone Non Pn, Clinician Primary Care Provider Unavailable Reason for Visit Reason Comments RESULTS, TEST Encounter Details Date Type Department Care Team Description 03/22/2021 Telephone [place] [facility] Denise Allred, RESULTS, TEST [address] [facility] [place] [address] [address] [facility] [phone] [facility] N [address] (Wo rk) Social History Tobacco Use Types Packs/Day Years Used Date Smoking Tobacco: Never Smokeless Tobacco: Never Alcohol Use Standard Drinks/Week Comments Yes 0 (1 standard drink = 0.6 oz pure alcoho l) Sex Assigned at Date Recorded Not on file documented as of this encounter Nursing Notes Shauna Lindsay LPN - 03/22/2021 3:17 PM CDT Called patient back and they verbalized an understanding. They were encouraged to call back with anyfuture questions or concerns. BÁRBARAT Denise Davila MD - 03/22/2021 2:48 PM CDT Please call to let her know that I have sent this message to her Mychart. Princess, the blood test for the uric acid is too low. You are currently taking 300 mg/d (1 tab). I would like you to reduce the allopurinol dose to 250 mg/d. I have faxed a Rx of 100-mg tab and you will take 2.5 tabs/d. OK to take 300-mg a day now until you have received the 100-mg in the mail. Do not use 300 -mg tab anymore after you have received the 100-mg tab in the mail. The kidney function test (creatinine) is lower and better than last time. The liver test ALT is normal. The complete blood counts show minimal anemia and minimally low platelet count-no worry. Continueto monitor. documented in this encounter Plan of Treatment Upcoming Encounters Date Type Specialty Care Team Description 09/29/2022 Appointment Rheumatology Kal Davila MD [address] [facility] [place] [address] [address] (Wo rk) documented as of this encounter Visit Diagnoses Not on filedocumented in this encounter Care Teams Abstract Maker Relationship Specialty Start Date End Date Non Pn, Clinician, PCP - General 03/01/18 [place] [address] documented as of this encounter
--- OUTSIDE RECORDS SUMMARY | 2022-07-24 10:30 | XMS_ITS | Encounter Summary ---
:1940 Author Organization [employer] Address [address], [place] [address] Care Team Providers Name Role Phone Non Pn, Clinician Primary Care Provider Unavailable Reason for Visit Reason Comments Follow-up Encounter Details Date Type Department Care Team Description 03/22/2021 Office Visit Marialuisa Ralph tophac eous gout (Primary Dx); Rheumatology MD Denise Psoriatic arthritis (HRC); [address] Encounter for long-term curr [place] [address] [address] [phone] [place] [address] (Wo rk) Social History Tobacco Use Types Packs/Day Years Used Date Smoking Tobacco: Never Smokeless Tobacco: Never Alcohol Use Standard Drinks/Week Comments Yes 0 (1 standard drink = 0.6 oz pure alcoho l) Sex Assigned at Date Recorded Not on file documented as of this encounter Last Filed Vital Signs Vital Sign Reading Time Taken Comments Blood Pressure 135/73 03/22/2021 1:18 PM CDT Pulse 78 03/22/2021 1:18 PM CDT Temperature 35.7 ??C (96.3 ??F) 03/22/2021 1:18 PM CDT Respiratory Rate - - Oxygen Saturation - - Inhaled Oxygen Concentration - - Weight 80.3 kg (177 lb) 03/22/2021 1:18 PM CDT Height - - Body Mass Index 29.68 03/29/2018 9:30 AM CDT documented in this encounter Progress Notes Denise Davila MD - 03/22/2021 1:30 PM CDT SUBJECTIVE: Follow-up for tophaceous gout, history of prior psoriatic arthritis versus polyarticulargout. History of present illness: This is the three-month follow-up for the patient. She currently takes allopurinol. Her serum uric acid when this was last checked on 01/11/2021 was at good therapeutic level 3.4. She also takes colchicine 0.3 mg every other day prophylactically. She has not had a gout attack to require the use of prednisone. 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 She is nowon methotrexate 20 mg weekly. This has been under good control as well. It is not clear whether prior polyarticular inflammatory arthritis associated with psoriatic arthritis or it was polyarticular gout. She has had mechanical low back pain. She recently had an MRI with [facility] on 03/01/2021. The results will be scanned into the media. She brought the results with her. 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 Subarticular encroachment of the descendingleft L5 root at L4-L5, mild subarticular stenosis bilaterally at L3-L4 and on the right at L2-L3 without impingement. Facet joint arthritis moderate on the left L4-L5 and mild at the scattered levels elsewhere. No vertebral compression fracture. She is following this problem with a spine doctor in the near future. According to her, there is no distal leg radiation to suggest radiculopathy, fever, saddle paresthesia or true muscle weakness Past medical history, family and social history, current medications and adverse reactions were updated in EMR. Physical exams: BP 135/73 (BP Location: Left Arm, BP Cuff Size: Large) Pulse 78 Temp (!) 96.3 ??F (35.7 ??C) (Skin) Wt 177 lb (80.3 kg) BMI 29.68 kg/m?? General appearance: An elderly female who was not in acute physical distress. Musculoskeletal exams: All 4 extremities were examined. There is a complete resolution of the small tophus over right third PIP and DIP joints. There is also complete resolution of the tophus over the left third PIP joint. Minimal, if any, synovitis left third PIP joint without significant tenderness. Osteoarthritic changes finger knuckle joints. No significant synovitis/inflammatory arthritis/dactylitis or effusion in any other remaining joints. Assessment and plan: 1. Tophaceous gout, therapeutic serum uric acid level. 2. 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 3. Chronic long-term high-risk medication and monitoring. 4. Degenerative lumbar spine disease. She has no more clinical tophi. Her serum uric it is at good therapeutic level. I will continue her on allopurinol at the current dose 300 mg a day. I will also continue on colchicine low-dose 0.3 mg every-other day until the small spongy feeling over the left third PIP is gone completely since I think that this is representing low-grade gouty inflammatory arthritis. At this point, I think that I will make the attempt to taper her methotrexate by 2.5 mg weekly sinceprior polyarticular inflammatory arthritis could potentially be polyarticular gout. She was happy with the idea. She will slowly reduce methotrexate by 2.5 mg every month until she is at 10 mg a week and she will stay at that dose. Continue folic acid 1 mg a day and blood test monitoring every 3 months for standing orders. I do not have additional treatment recommendation for degenerative lumbar spine disease. Discussed about physical therapy, ergonomics, [id number] acetaminophen as needed. Cortisone injection if this is deemed to be accessory and she will discuss this with her spine doctor at the upcoming visit. Follow-up again in 3 months. Blood tests for serum uric acid, CBC/ALT/creatinine before the appointment. Total time is 30 minutes, 20 minutes counseling. 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
--- OUTSIDE RECORDS SUMMARY | 2022-07-24 10:30 | XMS_ITS | Encounter Summary ---
:1940 Author Organization [facility] Address [address] [place] [address] Care Team Providers Name Role Phone Non Pn, Clinician Primary Care Provider Unavailable Encounter Details Date Type Department Care Team Description 10/11/2020 Immunization [place] COVID Vaccine Encou nter for Program administration of vaccine [address] (Primary Dx) [place], [place] [id number] Social History Tobacco Use Types Packs/Day Years Used Date Smoking Tobacco: Never Smokeless Tobacco: Never Alcohol Use Standard Drinks/Week Comments Yes 0 (1 standard drink = 0.6 oz pure alcoho l) Sex Assigned at Date Recorded Not on file documented as of this encounter Plan of Treatment Upcoming Encounters Date Type Specialty Care Team Description 09/29/2022 Appointment Rheumatology Kal Davila MD [address] [facility] [place] [address] [address] (Wo rk) documented as of this encounter Visit Diagnoses Diagnosis Encounter for administration of vaccine - Primary documented in this encounter Care Teams Relations Manager Relationship Specialty Start Date End Date Non Pn, ClinicianMD PCP - General 03/01/18 [place] [address] documented as of this encounter
--- OUTSIDE RECORDS SUMMARY | 2022-07-24 10:30 | XMS_ITS | Encounter Summary ---
:1940 Author Organization [facility] Address [address] [place] [address] Care Team Providers Name Role Phone Non Pn, Clinician Primary Care Provider Unavailable Encounter Details Date Type Department Care Team Description 09/24/2020 Lab Visit [facility] High risk medication use; [address] Nodule of finger of left louie d; [place] [address] Hyperuricemia [phone] Social History Tobacco Use Types Packs/Day Years Used Date Smoking Tobacco: Never Smokeless Tobacco: Never Alcohol Use Standard Drinks/Week Comments Yes 0 (1 standard drink = 0.6 oz pure alcoho l) Sex Assigned at Date Recorded Not on file documented as of this encounter Progress Notes Denise Davila MD - 09/24/2020 1:20 PM CST Princess, the complete blood counts show minimal anemia (slightly low hemoglobin) and this is not concerning. The kidney function test (creatinine) is higher but this is stable within your previous baselines. The liver enzyme (ALT) is normal. The uric acid is high and higher than last results, as expected. No change of treatment plan based on these results. Porsha will help start medication to lower levelof uric acid for you next week. WORKER Denise Davila MD - 09/24/2020 1:20 PM CST Princess, I forgot to mention that the analysis of fluid aspirate to confirm gout will be sent to you lee separate email after the pathologist has reviewed it. As discussed during the visit, it is positive based on my personal inspection on the microscope in the clinic here. WORKER documented in this encounter Plan of Treatment Upcoming Encounters Date Type Specialty Care Team Description 09/29/2022 Appointment Rheumatology Kal Davila MD [address] [facility] [address] [id number] (Wo rk) documented as of this encounter Procedures Procedure Name Priority Date/Time Associated Comments Diagnosis CBC AND DIFFERENTIAL Routine 09/24/2020 12:14 High risk Res ults for this PANEL PM SOAP WORKER medication use procedure are in the results section. CREATININE / GFR Routine 09/24/2020 12:14 High risk Results for this PM SOAP WORKER medication use procedure are in the results section. COMPLETE BLOOD Routine 09/24/2020 12:14 High risk Results f or this COUNT-W/DIFF PM SOAP WORKER medication use procedure are in the results section. URIC ACID Routine 09/24/2020 12:14 Nodule of finger of Resu lts for this PM SOAP WORKER left hand procedure are i n the results section. ALT (SGPT) Routine 09/24/2020 12:14 High risk Results for this PM SOAP WORKER medication use procedure are in the results section. documented in this encounter Results (ABNORMAL) Complete Blood Count-W/Diff (09/24/2020 12:14 PM SOAP WORKER) [facility] gist Method Time Signature WBC 9.1 3.5 - 10.5 09/24/2020 [facility] x10(9)/L 12:23 PM SOAP [facility] RBC 3.57 (L) 3.90 - 09/24/2020 [facility] 5.03 12:23 PM SOAP WORK[facility] x10(12)/L Hemoglobin 11.8 (L) 12.0 - 09/24/2020 [facility] 15.5 g/dL 12:23 PM SOAP [facility] HCT 35.6 34.9 - 09/24/2020 [facility] 44.5 % 12:23 PM [facility] MCV 99.7 80.0 - 09/24/2020 [facility] 100.0 fL 12:23 PM SOAP [facility] MCH 33.1 27.6 - 09/24/2020 [facility] 33.3 pg 12:23 PM SOAP WORK[facility] MCHC 33.1 31.5 - 09/24/2020 [facility] 35.2 g/dL 12:23 PM SOAP [facility] RDW 12.9 11.9 - 09/24/2020 [facility] 15.5 % 12:23 PM SOAP [facility] Platelets 241 150 - 450 09/24/2020 [facility] x10(9)/L 12:23 PM SOAP WORK[facility] Automated NRBC 0 <=0 /100 09/24/2020 [facility] WBC 12:23 PM [facility] Neutrophil 7.7 (H) 1.7 - 7.0 09/24/2020 [facility] Absolute 10(9)/L 12:23 PM [facility] Lymphocyte 1.0 1.0 - 4.8 09/24/2020 [facility] Absolute 10(9)/L 12:23 PM SOAP [facility] Monocytes 0.3 0.2 - 0.9 09/24/2020 [facility] Absolute 10(9)/L 12:23 PM SOAP [facility] Eosinophil 0.1 0.0 - 0.5 09/24/2020 [facility] Absolute 10(9)/L 12:23 PM SOAP WORK[facility] Basophil 0.0 0.0 - 0.3 09/24/2020 [facility] Absolute 10(9)/L 12:23 PM SOAP [facility] Immature Gran % 0.7 (H) 0.0 - 0.5 09/24/2020 [facility] % 12:23 PM SOAP WORK[facility] Specimen Anatomical Collection Method / Collection Time Recei christ Time (Source) Location / Volume Laterality Blood Venipuncture / 09/24/2020 12:14 Unknown PM SOAP WORKER 12:14 PM SOAP WORKER Denise Davila MD LAB_1 Performing Organization Address City/State/ZIP Code Phon e Number [facility] [id number] [place] [address] (ABNORMAL) URIC - Uric Acid (09/24/2020 12:14 PM SOAP WORKER) P athologist Signature Uric Acid 9.6 (H) 2.6 - 6.0 09/24/2020 [facility] mg/dL 2:00 PM SOAP [facility] Specimen Anatomical Collection Method / Collection Time Recei christ Time (Source) Location / Volume Laterality Blood Venipuncture / 09/24/2020 12:14 1 Unknown PM SOAP WORKER 12:14 PM SOAP WORKER Denise Davila MD LAB_1 Performing Organization Address [facility]/ZIP Code Phon e Number [facility] [address] [place] [phone] (ABNORMAL) CREAT - Creatinine - standing every 2 - 3 months (09/24/2020 12:14 PM SOAP WORKER) Patholo gist Method Time Signature Creatinine 1.40 (H) 0.55 - 09/24/2020 [facility] 1.02 mg/dL 2:00 PM SOAP [facility] GFR, Estimated 36 (L) >60 09/24/2020 [facility] mL/min/1.7 2:00 PM SOAP WORKER [facility] 3m2 Specimen Anatomical Collection Method / Collection Time Recei christ Time (Source) Location / Volume Laterality Blood Venipuncture / 09/24/2020 12:14 1 Unknown PM SOAP WORKER 12:14 PM SOAP WORKER Denise Davila MD LAB_1 Performing Organization Address [facility]/ZIP Code Phon e Number [facility] [address] [place] [address] ALT - Alanine Aminotransferase - standing every 2 - 3 months (09/24/2020 12:14 PM SOAP WORKER) P athologist Signature ALT (SGPT) 25 0 - 55 U/L 09/24/2020 [facility] 2:00 PM SOAP WORKER [facility] Specimen Anatomical Collection Method / Collection Time Recei christ Time (Source) Location / Volume Laterality Blood Venipuncture / 09/24/2020 12:14 1 Unknown PM SOAP WORKER 12:14 PM SOAP WORKER Denise Davila MD LAB_1 Performing Organization Address City/[facility]/ZIP Code Phon e Number [facility] [id number] [place] [address] documented in this encounter Visit Diagnoses Diagnosis High risk medication use Encounter for long-term (current) use of other medications Nodule of finger of left hand Hyperuricemia Other abnormal blood chemistry documented in this encounter Care Teams Station Manager Relationship Specialty Start Date End Date Non Pn, Clinician, PCP - General 03/01/18 [place] [address] documented as of this encounter
--- OUTSIDE RECORDS SUMMARY | 2022-07-24 10:30 | XMS_ITS | Encounter Summary ---
:1940 Author Organization [facility] Address [address] [place] [address] Care Team Providers Name Role Phone Non Pn, Clinician Primary Care Provider Unavailable Encounter Details Date Type Department Care Team Description 02/06/2020 Orders Only Initial Department Provider, Ernie, [facility] IWONA ECHEVARRIA MD [place], [place] [address] Interface provider [phone] [place] [address] Social History Tobacco Use Types Packs/Day Years Used Date Smoking Tobacco: Never Smokeless Tobacco: Never Alcohol Use Standard Drinks/Week Comments Yes 0 (1 standard drink = 0.6 oz pure alcoho l) Sex Assigned at Date Recorded Not on file documented as of this encounter Plan of Treatment Upcoming Encounters Date Type Specialty Care Team Description 09/29/2022 Appointment Rheumatology Kal Davila MD [address] [facility] [address] [address] (Wo rk) documented as of this encounter Procedures Procedure Name Priority Date/Time Associated Diagnosis Comme nts LABORATORY REPORT 02/06/2020 Results fo r this procedure are in the resu lts section. documented in this encounter Results LABORATORY REPORT (02/06/2020) Narrative This result has an attachment that is no t available. Interface Provider DUMMY/OTHER/AR documented in this encounter Visit Diagnoses Not on filedocumented in this encounter Care Teams Mill Tender Warm Up Relationship Specialty Start Date End Date Non Pn, ClinicianMD PCP - General 03/01/18 [place] [address] documented as of this encounter
--- OUTSIDE RECORDS SUMMARY | 2022-07-24 10:30 | XMS_ITS | Encounter Summary ---
:1940 Author Organization [facility] Address [address] [place] [address] Care Team Providers Name Role Phone Non Pn, Clinician Primary Care Provider Unavailable Encounter Details Date Type Department Care Team Description 01/11/2021 Lab Visit [facility] tophaceous gout; Laboratory Encounter for long-term curr ent use of high risk medication [address] [place] [address] Social History Tobacco Use Types Packs/Day Years Used Date Smoking Tobacco: Never Smokeless Tobacco: Never Alcohol Use Standard Drinks/Week Comments Yes 0 (1 standard drink = 0.6 oz pure alcoho l) Sex Assigned at Date Recorded Not on file documented as of this encounter Progress Notes Denise Davila MD - 01/11/2021 10:10 AM CDT Princess, your uric acid level is good level, less than 5 but not less than 3. The current dose of allopurinol is good dose 300 mg/d. I have faxed the new Rx of allopurinol to your pharmacy. However, this is the 300-mg tab so that youwill take it only 1 tab/d. Please make sure that you check this carefully when you receive pill in your mail. The kidney function test creatinine is stable. The blood counts and liver enzyme are unremarkable-not worrying. documented in this encounter Plan of Treatment Upcoming Encounters Date Type Specialty Care Team Description 09/29/2022 Appointment Rheumatology Kal Davila MD [address] [facility] [place] [address] [address] (Wo rk) documented as of this encounter Procedures Procedure Name Priority Date/Time Associated Comments Diagnosis CBC AND DIFFERENTIAL Routine 01/11/2021 10:23 Encounter for Re sults for this PANEL AM CDT long-term current procedure are in use of high risk the results medication section. CREATININE / GFR Routine 01/11/2021 10:23 Encounter for Result s for this AM CDT long-term current procedure are in use of high risk the results medication section. COMPLETE BLOOD Routine 01/11/2021 10:23 Encounter for Results for this COUNT-W/DIFF AM CDT long-term current procedure are in use of high risk the results medication section. URIC ACID Routine 01/11/2021 10:23 Chronic tophaceous Resul ts for this AM CDT gout procedure are i n the results section. ALT (SGPT) Routine 01/11/2021 10:23 Encounter for Results fo r this AM CDT long-term current procedure are in use of high risk the results medication section. documented in this encounter Results (ABNORMAL) Complete Blood Count-W/Diff (01/11/2021 10:23 AM CDT) [facility] gist Method Time Signature WBC 10.9 (H) 3.5 - 01/11/2021 [facility] 10.5 10:38 AM CDT LABORATORY x10(9)/L RBC 3.48 (L) 3.90 - 01/11/2021 [facility] 5.03 10:38 AM CDT LABORATORY x10(12)/L Hemoglobin 12.0 12.0 - 01/11/2021 [facility] 15.5 g/dL 10:38 AM CDT LABORATORY HCT 36.3 34.9 - 01/11/2021 [facility] 44.5 % 10:38 AM CDT LABORATORY MCV 104.3 (H) 80.0 - 01/11/2021 [facility] 100.0 fL 10:38 AM CDT LABORATORY MCH 34.5 (H) 27.6 - 01/11/2021 [facility] 33.3 pg 10:38 AM CDT LABORATORY MCHC 33.1 31.5 - 01/11/2021 [facility] 35.2 g/dL 10:38 AM CDT LABORATORY RDW 15.3 11.9 - 01/11/2021 [facility] 15.5 % 10:38 AM CDT LABORATORY Platelets 173 150 - 450 01/11/2021 [facility] x10(9)/L 10:38 AM CDT LABORATORY Automated NRBC 0 <=0 /100 01/11/2021 [facility] WBC 10:38 AM CDT LABORATORY Neutrophil 9.5 (H) 1.7 - 7.0 01/11/2021 [facility] Absolute 10(9)/L 10:38 AM CDT LABORATORY Lymphocyte 0.7 (L) 1.0 - 4.8 01/11/2021 [facility] Absolute 10(9)/L 10:38 AM CDT LABORATORY Monocytes 0.5 0.2 - 0.9 01/11/2021 [facility] Absolute 10(9)/L 10:38 AM CDT LABORATORY Eosinophil 0.1 0.0 - 0.5 01/11/2021 [facility] Absolute 10(9)/L 10:38 AM CDT LABORATORY Basophil 0.0 0.0 - 0.3 01/11/2021 [facility] Absolute 10(9)/L 10:38 AM CDT LABORATORY Immature Gran % 0.6 (H) 0.0 - 0.5 01/11/2021 [facility] % 10:38 AM CDT LABORATORY Specimen Anatomical Collection Method / Collection Time Recei christ Time (Source) Location / Volume Laterality Blood Venipuncture / 01/11/2021 10:23 Unknown AM CDT 10:34 AM CDT Denise Davila MD LAB_1 Performing Organization Address City/State/ZIP Code Phon e Number [facility] [address] [place] [address] ALT - Alanine Aminotransferase (01/11/2021 10:23 AM CDT) P athologist Signature ALT (SGPT) 15 0 - 55 U/L 01/11/2021 [facility] 11:22 AM CDT LABORATORY Specimen Anatomical Collection Method / Collection Time Recei christ Time (Source) Location / Volume Laterality Blood Venipuncture / 01/11/2021 10:23 1 Unknown AM CDT 10:34 AM CDT Denise Davila MD LAB_1 Performing Organization Address [facility]/ZIP Code Phon e Number [facility] [address] [place] [address] (ABNORMAL) CREAT - Creatinine (01/11/2021 10:23 AM CDT) Patholo gist Method Time Signature Creatinine 1.40 (H) 0.55 - 01/11/2021 [facility] 1.02 mg/dL 11:22 AM CDT LABORATORY GFR, Estimated 36 (L) >60 01/11/2021 [facility] mL/min/1.7 11:22 AM CDT LABORATORY 3m2 Specimen Anatomical Collection Method / Collection Time Recei christ Time (Source) Location / Volume Laterality Blood Venipuncture / 01/11/2021 10:23 1 Unknown AM CDT 10:34 AM CDT Denise Davila MD LAB_1 Performing Organization Address [facility]/ZIP Code Phon e Number [facility] [address] [place] [address] URIC - Uric Acid (01/11/2021 10:23 AM CDT) P athologist Signature Uric Acid 3.4 2.6 - 6.0 01/11/2021 [facility] mg/dL 11:22 AM CDT LABORATORY Specimen Anatomical Collection Method / Collection Time Recei christ Time (Source) Location / Volume Laterality Blood Venipuncture / 01/11/2021 10:23 1 Unknown AM CDT 10:34 AM CDT Denise Davila MD LAB_1 Performing Organization Address [facility]/ZIP Code Phon e Number [facility] [address] [place] [address] documented in this encounter Visit Diagnoses 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
--- OUTSIDE RECORDS SUMMARY | 2022-07-24 10:30 | XMS_ITS | Encounter Summary ---
:1940 Author Organization [employer] Address [address] [place] [address] Care Team Providers Name Role Phone Non Pn, Clinician Primary Care Provider Unavailable Encounter Details Date Type Department Care Team Description 08/15/2019 Lab Visit [facility] Psoriatic arthritis (HRC); [address] [facility] [place] [address] Social History Tobacco Use Types Packs/Day Years Used Date Smoking Tobacco: Never Smokeless Tobacco: Never Sex Assigned at Date Recorded Not on file documented as of this encounter Plan of Treatment Upcoming Encounters Date Type Specialty Care Team Description 09/29/2022 Appointment Rheumatology Kal Davila MD [address] [facility] [address] (Wo rk) documented as of this encounter Procedures Procedure Name Priority Date/Time Associated Comments Diagnosis CBC AND DIFFERENTIAL Routine 08/15/2019 11:29 Psoriatic arthri tis Results for this PANEL [facility] [employer] ([facility]C) procedure are in High risk the results medication use section. CREATININE / GFR Routine 08/15/2019 11:29 Psoriatic arthritis Results for this AM [employer] [employer] (HRC) procedure are in High risk the results medication use section. COMPLETE BLOOD Routine 08/15/2019 11:29 Psoriatic arthritis Re sults for this COUNT-W/DIFF [facility] [employer] [facility] (HRC) procedure are in High risk the results medication use section. HEPATITIS C ANTIBODY, Routine 08/15/2019 11:29 Psoriatic arthr itis Results for this WITH REFLEX [facility] [employer] [facility] (HRC) procedure are in High risk the results medication use section. C-REACTIVE PROTEIN Routine 08/15/2019 11:29 Psoriatic arthriti s Results for this AM [facility] [employer] (HRC) procedure are in High risk the results medication use section. HBSAG (HEPATITIS B Routine 08/15/2019 11:29 Psoriatic arthriti s Results for this SURFACE AG) [facility] [employer] [facility] (HRC) procedure are in High risk the results medication use section. HEPATITIS B CORE,AB Routine 08/15/2019 11:29 Psoriatic arthrit is Results for this AM [facility] [employer] (HRC) procedure are in High risk the results medication use section. ALT (SGPT) Routine 08/15/2019 11:29 Psoriatic arthritis Resu lts for this AM [employer] (HRC) procedure are in High risk the results medication use section. ESR Routine 08/15/2019 11:29 Psoriatic arthritis Resu lts for this AM [employer] (HRC) procedure are in High risk the results medication use section. TB GOLD, QUANTIFERON Routine 08/15/2019 11:27 Psoriatic arthri tis Results for this [facility] [employer] [employer] (HRC) procedure are in High risk the results medication use section. documented in this encounter Results (ABNORMAL) Complete Blood Count-W/Diff (08/15/2019 11:29 [facility]) [facility] Time Signature WBC 8.7 3.5 - 10.5 08/15/2019 [place] x10(9)/L 11:43 [facility] RBC 4.03 3.90 - 08/15/2019 [place] 5.03 11:43 [facility] x10(12)/L Hemoglobin 12.1 12.0 - 08/15/2019 [place] 15.5 g/dL 11:43 [facility] HCT 37.9 34.9 - 08/15/2019 [place] 44.5 % 11:43 [facility] MCV 94.0 80.0 - 08/15/2019 [place] 100.0 fL 11:43 [facility] MCH 30.0 27.6 - 08/15/2019 [place] 33.3 pg 11:43 [facility] MCHC 31.9 31.5 - 08/15/2019 [place] 35.2 g/dL 11:43 [facility] RDW 13.1 11.9 - 08/15/2019 [place] 15.5 % 11:43 [facility] Platelets 230 150 - 450 08/15/2019 [place] x10(9)/L 11:43 [facility] Automated NRBC 0 <=0 /100 08/15/2019 [place] WBC 11:43 [facility] Neutrophil 5.8 1.7 - 7.0 08/15/2019 [place] Absolute 10(9)/L 11:43 [facility] Lymphocyte 2.1 1.0 - 4.8 08/15/2019 [place] Absolute 10(9)/L 11:43 [facility] Monocytes 0.5 0.2 - 0.9 08/15/2019 [place] Absolute 10(9)/L 11:43 [facility] Eosinophil 0.2 0.0 - 0.5 08/15/2019 [place] Absolute 10(9)/L 11:43 [facility] Basophil 0.0 0.0 - 0.3 08/15/2019 [place] Absolute 10(9)/L 11:43 [facility] Immature Gran % 0.8 (H) 0.0 - 0.5 08/15/2019 [place] % 11:43 [facility] Specimen Anatomical Collection Method / Collection Time Recei christ Time (Source) Location / Volume Laterality Blood Venipuncture / 08/15/2019 11:29 0 Unknown [facility] 11:29 [facility] Denise Davila MD LAB_1 Performing Organization Address City/State/ZIP Code Phon e Number [facility] [address] [place] [address] HCAB - Hepatitis C Virus Marta with Reflex In-House (08/15/2019 11:29 [facility]) [facility] Method Time Signature Hepatitis C Negative Negative 08/15/2019 [place] Antibody (Non (Non 4:04 [facility] Reactive) Reactive) Comment: Antibodies to HCV not detected. Does not exclude the possiblity of exposure to HCV. Specimen Anatomical Collection Method / Collection Time Recei christ Time (Source) Location / Volume Laterality Blood Venipuncture / 08/15/2019 11:29 0 Unknown [facility] 11:29 [facility] Denise Davila MD LAB_1 Performing Organization Address City/State/ZIP Code Phon e Number [facility] [address] [place] [address] HBAG - Hepatitis B Surf Ag (08/15/2019 11:29 [facility]) [facility] Method Time Signature Hepatitis B Negative Negative 08/15/2019 [place] Surface (Non (Non 4:04 PM [facility] Antigen Reactive) Reactive) Specimen Anatomical Collection Method / Collection Time Recei christ Time (Source) Location / Volume Laterality Blood Venipuncture / 08/15/2019 11:29 0 Unknown [facility] 11:29 [facility] Denise Davila MD LAB_1 Performing Organization Address City/[facility] Phon e Number [facility] [address] [place] [address] HBCB - Hepatitis B Core Antibody Total (08/15/2019 11:29 [facility] [facility]) [facility] Method Time Signature Hepatitis B Negative Negative 08/15/2019 [place] Core Antibody (Non (Non 4:04 PM [facility] Reactive) Reactive) Specimen Anatomical Collection Method / Collection Time Recei christ Time (Source) Location / Volume Laterality Blood Venipuncture / 08/15/2019 11:29 0 Unknown [facility] 11:29 [facility] Denise Davila MD LAB_1 Performing Organization Address [facility] Phon e Number [facility] [address] [place] [address] (ABNORMAL) ESR - Sedimentation Rate (08/15/2019 11:29 [facility] [facility]) [facility] Signature Sedimentation Rate 49 (H) 0 - 20 08/15/2019 [place] mm/hr 12:21 [facility] Specimen Anatomical Collection Method / Collection Time Recei christ Time (Source) Location / Volume Laterality Blood Venipuncture / 08/15/2019 11:29 0 Unknown [facility] [facility] 11:29 [facility] Denise Davila MD LAB_1 Performing Organization Address [facility] Phon e Number [facility] [address] [place] [address] CRP - C Reactive Protein (08/15/2019 11:29 [facility] [employer]) athologist Signature C-Reactive 0.7 0.0 - 0.7 08/15/2019 [place] Protein mg/dL 12:26 PM [facility] Specimen Anatomical Collection Method / Collection Time Recei christ Time (Source) Location / Volume Laterality Blood Venipuncture / 08/15/2019 11:29 0 Unknown [facility] [facility] 11:29 [facility] Denise Davila MD LAB_1 Performing Organization Address [facility] Code Phon e Number [facility] [address] [place] [address] ALT - Alanine Aminotransferase (08/15/2019 11:29 AM [facility] [employer]) athologist Signature ALT (SGPT) 16 0 - 55 U/L 08/15/2019 [place] 12:26 [facility] Specimen Anatomical Collection Method / Collection Time Recei christ Time (Source) Location / Volume Laterality Blood Venipuncture / 08/15/2019 11:29 0 Unknown [facility] [facility] 11:29 [facility] Denise Davila MD LAB_1 Performing Organization Address [facility] Phon e Number [facility] [address] [place] [address] (ABNORMAL) CREAT - Creatinine (08/15/2019 11:29 AM [facility] [employer] [facility]) [facility] gist Method Time Signature Creatinine 1.40 (H) 0.55 - 08/15/2019 [place] 1.02 mg/dL 12:26 [facility] GFR, Estimated 36 (L) >60 08/15/2019 [place] mL/min/1.7 12:26 [facility] 3m2 GFR, Est If 41 (L) >60 08/15/2019 [place] mL/min/1.7 12:26 [facility] [place] 3m2 Specimen Anatomical Collection Method / Collection Time Recei christ Time (Source) Location / Volume Laterality Blood Venipuncture / 08/15/2019 11:29 0 Unknown [facility] [facility] 11:29 [facility] [facility] Denise Davila MD LAB_1 Performing Organization Address [facility]/State/ZIP Code Phon e Number [facility] [address] [facility] [place], [place] [address] TB Gold, Quantiferon (08/15/2019 11:27 AM [facility] [employer] [facility]) [facility] Method Time Signature TB Gold, Negative Negative 08/19/2019 [place] QuantiFeron 7:49 [facility] Plus TB Nil Value 0.03 08/19/2019 [place] 7:49 [facility] TB1 Minus Nil 0.01 08/19/2019 [place] Value 7:49 [facility] TB2 Minus Nil <0.01 08/19/2019 [place] Value 7:49 [facility] Mitogen Minus 6.69 08/19/2019 [place] Nil Value 7:49 [facility] Specimen Anatomical Collection Method / Collection Time Recei christ Time (Source) Location / Volume Laterality Blood Venipuncture / 08/15/2019 11:27 0 Unknown [facility] [facility] 11:29 [facility] Narrative [facility] - 08/19/2019 7:49 A M [facility] [employer] [facility] Nil ?TB1-Nil ? TB2-Nil ?Mitogen-Nil ??Result ?Interpretation (IU/ml) ??(IU/mL) ? (IU/mL) ?(IU/mL) <=8.0 ? >=0.35 & ? Any ?Any ?Positive ?M. tuberculosis ?>=25% Nil ?infection likely <=8.0 ? Any ?>=0.35 & ? Any ?Positive ?M. tuberculosis ? >=25% Nil ? infection likely <=8.0 ? <0.35 or ? <0.35 or ? >=0.50 ? Negative ?M. tuberculosis ?>=0.35 & ? >=0.35 & ?infection NOT ?<25% Nil ? <25% Nil ?likely <=8.0 ? <0.35 or ? <0.35 or ? <0.50 ? Indeterminate ??M. tuberculosis ?>=0.35 & ? >=0.35 & ?infection cannot ?<25% Nil ? <25% Nil ?be determined >8.0 ?Any ?Any ?Any ? Indeterminate ??M. tuberculosis ? infection cannot ? be determined. Important: Diagnosing or excluding tuber culosis disease, and assessing the probability of LTBI, requires a combination of epidemiological, historical, medical, and diagnostic findings that should be [place] en into account when interpreting QFT-Pl us results. See general guidance on the diagnosis and treatment of TB disease and LTBI (https://www.cdc.gov/tb/publications/guidelines/default.htm). The magnitude of the measured IFN-gamma level cannot be correlated to stage or degree of infection, level of immune responsiveness, or likelihood for progression to active disease. A positive TB respons e in persons who are negative to Mitogen is rare, but has been seen in patients with TB disease. This indicates the IFN-gamma response to TB antigens is greater than that to Mitogen, which is possible a s the level of Mitogen does not maximall y stimulate IFN-gamma production by lymphocytes. Denise Davila MD LAB_1 Performing Organization Address City/State/ZIP Code Phon e Number [facility] [address] [place] [address] documented in this encounter Visit Diagnoses Diagnosis Psoriatic arthritis (HRC) Psoriatic arthropathy High risk medication use Encounter for long-term (current) use of other medications documented in this encounter Care Teams Jumpbasting Collar Baster Relationship Specialty Start Date End Date Non Pn, Clinician, PCP - General 03/01/18 [place] [address] documented as of this encounter
--- OUTSIDE RECORDS SUMMARY | 2022-07-24 10:30 | XMS_ITS | Encounter Summary ---
:1940 Author Organization [employer] Address [address], [place] [address] Care Team Providers Name Role Phone Non Pn, Clinician Primary Care Provider Unavailable Reason for Visit Reason Comments Follow-up Encounter Details Date Type Department Care Team Description 01/11/2021 Office Visit [facility] tophac eous gout (Primary Dx); Rheumatology MD Denise Psoriatic arthritis (HRC); [address] Encounter for long-term curr [place] [address] [address] [phone] [place] [address] (Wo rk) Social History Tobacco Use Types Packs/Day Years Used Date Smoking Tobacco: Never Smokeless Tobacco: Never Alcohol Use Standard Drinks/Week Comments Yes 0 (1 standard drink = 0.6 oz pure alcoho l) Sex Assigned at Date Recorded Not on file documented as of this encounter Last Filed Vital Signs Vital Sign Reading Time Taken Comments Blood Pressure 132/67 01/11/2021 10:49 AM CDT Pulse 79 01/11/2021 10:49 AM CDT Temperature 36.1 ??C (96.9 ??F) 01/11/2021 10:49 AM CDT Respiratory Rate - - Oxygen Saturation - - Inhaled Oxygen Concentration - - Weight 81.2 kg (179 lb) 01/11/2021 10:49 AM CDT Height - - Body Mass Index 30.02 03/29/2018 9:30 AM CDT documented in this encounter Progress Notes Denise Davila MD - 01/11/2021 11:00 AM CDT SUBJECTIVE: Follow-up for chronic tophaceous gout, history of psoriatic arthritis. History of present illness: This is a 2 month follow-up for the patient. I started her on allopurinol 2 months ago. The dose was slowly increased to the current dose of 300 mg a day without a significant cutaneous are non cutaneous adverse reactions. She had to discontinue colchicine due to significant loose stool. Reducing the dose to 0.6 mg every other day was still associated with significant loose stool. She has continue methotrexate 20 mg weekly, folic acid 1 mg a day and prednisone 2.5 mg a day. Since she stopped colchicine, her joints especially over the right third PIP and DIP joints are slightly swollen again. She just had a blood test this morning and the results are still pending. Past medical history, family and social history, current medications and adverse reactions were updated in EMR. Physical exams: BP 132/67 (BP Location: Left Arm, BP Cuff Size: Large) Pulse 79 Temp (!) 96.9 ??F (36.1 ??C) (Skin) Wt 179 lb (81.2 kg) BMI 30.02 kg/m?? General appearance: An elderly female who was not in acute physical distress. Skin: A small 2 mm tophus over the left dorsal third PIP, and possible right fourth PIP joint areas. Musculoskeletal exams: All 4 extremities were examined. Mild synovitis left third PIP, and right second PIP joints. No significant synovitis/inflammatory arthritis/dactylitis or effusion in any other remaining joints. Osteoarthritic changes finger knuckle joints. Assessment and plan: 1. Chronic tophaceous gout. 2. 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 3. Chronic long-term high-risk medication and monitoring. The patient has clinical inflammatory arthritis over bilateral third PIP joints, at the areas where she had gout attack in the past. The lack of prophylaxis with colchicine most likely precipitate this. I told her to try to use colchicine 0.3 mg every other day to see if this is more tolerated since itcan help to prevent gout attack while we are titrating the dose of allopurinol. She will continue colchicine 300 mg a day in the meantime. I will look at her blood test results today and will help titrate the dose of allopurinol to keep the level less than 5 but not less than 3. For her current mild gout attack, a we increase the dose of prednisone to 20 mg a day for 1 week and then she will get it down back to her baseline of 2.5 mg a day. I will continue methotrexate 20 mg a week and folic acid 1 mg a day in the meantime. When her gout attack is over and the serum uric acid is at good therapeutic level, I will slowly taper her off methotrexate to see if her inflammatory arthritis is coming back. If this is not come back, her prior clini eliana psoriatic arthritis could potentially be from polyarticular gout. I will correspond with her regarding the test results as above. I would like to see her back again in about 2 months. Blood tests for monitoring for methotrexate and serum uric acid again before the appointment. Total time is 30 minutes, 20 minutes counseling. 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
--- OUTSIDE RECORDS SUMMARY | 2022-07-24 10:30 | XMS_ITS | Encounter Summary ---
:1940 Author Organization [employer] Address [address], [place] [address] Care Team Providers Name Role Phone Non Pn, Clinician MD Primary Care Provider Unavailable Reason for Visit Reason Comments Refill Encounter Details Date Type Department Care Team Description 06/26/2020 Refill [facility] [address], Refill Rheumatology [address] [place] [address] [place] [address] [phone] (Wo rk) Social History Tobacco Use Types Packs/Day Years Used Date Smoking Tobacco: Never Smokeless Tobacco: Never Alcohol Use Standard Drinks/Week Comments Yes 0 (1 standard drink = 0.6 oz pure alcoho l) Sex Assigned at Date Recorded Not on file documented as of this encounter Nursing Notes Lubna Cameron RN - 06/28/2020 8:11 AM CST LV: 02/03/2020 FV: none (follow up in 2-3 months) Pt contacted and states that she is currently taking 2.5 mg daily. Encouraged pt to schedule appointment. Renewed medication per medication refill protocol. Requested Prescriptions Signed Prescriptions Disp Refills ??? predniSONE (DELTASONE) 5 MG tablet 30 Tablet 3 Sig: Take 0.5 Tablets by mouth daily. Authorizing Provider: GIOVANNA SHEPARD Ordering User: LUBNA CAMERON CAPPER documented in this encounter Plan of Treatment Upcoming Encounters Date Type Specialty Care Team Description 09/29/2022 Appointment Rheumatology Kal Shepard MD [address] [id number] (Wo rk) documented as of this encounter Visit Diagnoses Not on filedocumented in this encounter Care Teams Chro Relationship Specialty Start Date End Date Non Pn, Clinician, PCP - General 03/01/18 [place] [address] documented as of this encounter
--- OUTSIDE RECORDS SUMMARY | 2022-07-24 10:30 | XMS_ITS | Encounter Summary ---
:1940 Author Organization [employer] Address [address] [place] [address] Care Team Providers Name Role Phone Non Pn, Clinician Primary Care Provider Unavailable Reason for Visit Reason Comments RESULTS, TEST Encounter Details Date Type Department Care Team Description 02/02/2020 Notes/Orders [place] [facility] uriel [facility] [address] [facility] [place] [address] [address] [phone] [facility] Mary Ann [place] [address] (Wo rk) Social History Tobacco Use Types Packs/Day Years Used Date Smoking Tobacco: Never Smokeless Tobacco: Never Alcohol Use Standard Drinks/Week Comments Yes 0 (1 standard drink = 0.6 oz pure alcoho l) Sex Assigned at Date Recorded Not on file documented as of this encounter Progress Notes Denise Davila MD - 02/02/2020 8:18 AM CDT Outside labs: On 01/30/2020, white blood cells 6.91, hemoglobin 11.3, MCV 105, RDW 12.6, platelet count 204, normal ALT, serum creatinine 1.4 (0.5-1.5). documented in this encounter Plan of Treatment Upcoming Encounters Date Type Specialty Care Team Description 09/29/2022 Appointment Rheumatology Kal Davila MD [address] [facility] Mary Ann [place] N [address] (Wo rk) documented as of this encounter Visit Diagnoses Not on filedocumented in this encounter Care Teams Handbag Frames Inspector Relationship Specialty Start Date End Date Non Pn, Clinician, PCP - General 03/01/18 [place] [address] documented as of this encounter
--- OUTSIDE RECORDS SUMMARY | 2022-07-24 10:30 | XMS_ITS | Encounter Summary ---
:1940 Author Organization [facility] Address [address] [place] [address] Care Team Providers Name Role Phone Non Pn, Clinician Primary Care Provider Unavailable Encounter Details Date Type Department Care Team Description 09/20/2020 Immunization [place] COVID Vaccine Encou nter for Program administration of vaccine [address] (Primary Dx) [place], [place] [id number] Social History Tobacco Use Types Packs/Day Years Used Date Smoking Tobacco: Never Smokeless Tobacco: Never Alcohol Use Standard Drinks/Week Comments Yes 0 (1 standard drink = 0.6 oz pure alcoho l) Sex Assigned at Date Recorded Not on file documented as of this encounter Plan of Treatment Upcoming Encounters Date Type Specialty Care Team Description 09/29/2022 Appointment Rheumatology Kal Davila MD [address] [facility] [place] [address] [address] (Wo rk) documented as of this encounter Visit Diagnoses Diagnosis Encounter for administration of vaccine - Primary documented in this encounter Care Teams Child Protective Investigator Relationship Specialty Start Date End Date Non Pn, ClinicianMD PCP - General 03/01/18 [place] [address] documented as of this encounter
--- OUTSIDE RECORDS SUMMARY | 2022-07-24 10:30 | XMS_ITS | Encounter Summary ---
:1940 Author Organization [facility] Address [address] [place] [address] Care Team Providers Name Role Phone Non Pn, Clinician Primary Care Provider Unavailable Encounter Details Date Type Department Care Team Description 03/27/2021 Orders Only Initial Department Provider, Ernie, [facility] IWONA ECHEVARRIA MD [place], [place] [address] Interface provider [phone] [place] [address] Social History Tobacco Use Types Packs/Day Years Used Date Smoking Tobacco: Never Smokeless Tobacco: Never Alcohol Use Standard Drinks/Week Comments Yes 0 (1 standard drink = 0.6 oz pure alcoho l) Sex Assigned at Date Recorded Not on file documented as of this encounter Plan of Treatment Upcoming Encounters Date Type Specialty Care Team Description 09/29/2022 Appointment Rheumatology Kal Davila MD [address] [facility] N [id number] (Wo rk) documented as of this encounter Procedures Procedure Name Priority Date/Time Associated Diagnosis Comme nts MRI-SCAN 03/27/2021 Results for thi s procedure are in the resu lts section. documented in this encounter Results MRI-SCAN (03/27/2021) Anatomical Region Laterality Modality Other Narrative This result has an attachment that is no t available. Interface Provider DUMMY/OTHER/AR documented in this encounter Visit Diagnoses Not on filedocumented in this encounter Care Teams Inweaver Relationship Specialty Start Date End Date Non Pn, ClinicianMD PCP - General 03/01/18 [place] [address] documented as of this encounter
--- OUTSIDE RECORDS SUMMARY | 2022-07-24 10:30 | XMS_ITS | Encounter Summary ---
:1940 Author Organization [facility] Address [address] [place] [address] Care Team Providers Name Role Phone Non Pn, Clinician Primary Care Provider Unavailable Encounter Details Date Type Department Care Team Description 10/21/2019 Notes/Orders Neha Rheumatol uriel Davila, [address] [facility] [place] [address] [address] [phone] [facility] [address] [id number] (Wo rk) Social History Tobacco Use Types Packs/Day Years Used Date Smoking Tobacco: Never Smokeless Tobacco: Never Alcohol Use Standard Drinks/Week Comments Yes 0 (1 standard drink = 0.6 oz pure alcoho l) Sex Assigned at Date Recorded Not on file documented as of this encounter Plan of Treatment Upcoming Encounters Date Type Specialty Care Team Description 09/29/2022 Appointment Rheumatology Kal Davila MD [address] [facility] N [id number] (Wo rk) documented as of this encounter Visit Diagnoses Not on filedocumented in this encounter Care Teams Supervisor [employer] Relationship Specialty Start Date End Date Non Pn, ClinicianMD PCP - General 03/01/18 [place] [address] documented as of this encounter
--- OUTSIDE RECORDS SUMMARY | 2022-07-24 10:30 | XMS_ITS | Encounter Summary ---
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); Rheumatology PA-C Hyperuricemia; [id number] [facility] [address] Renal insufficiency; [place] [address] Blvd Essential hypertension; [phone] [place], [place] Psoriatic arthritis (HRC); [address] Generalized osteoarthritis; [phone] (Wo rk) Encounter for long-term current use of h igh risk medication Social History Tobacco Use Types Packs/Day Years Used Date Smoking Tobacco: Never Smokeless Tobacco: Never Alcohol Use Standard Drinks/Week Comments Yes 0 (1 standard drink = 0.6 oz pure alcoho l) Sex Assigned at Date Recorded Not on file documented as of this encounter Last Filed Vital Signs Vital Sign Reading Time Taken Comments Blood Pressure 150/62 10/01/2020 11:08 AM TREAD CUTTER Pulse 57 10/01/2020 11:08 AM TREAD CUTTER Temperature 36.3 ??C (97.3 ??F) 10/01/2020 11:08 AM TREAD CUTTER Respiratory Rate - - Oxygen Saturation - - Inhaled Oxygen Concentration - - Weight 78.9 kg (174 lb) 10/01/2020 11:08 AM TREAD CUTTER Height - - Body Mass Index 29.18 03/29/2018 9:30 AM CDT documented in this encounter Patient Instructions Patient InstructionsPorsha Loera PA-C - 10/01/2020 11:15 AM CST 1. Prednisone 30 mg/d for 7 days -Repeat as needed for flares 2. Colchicine 0.6 mg (1 tablet) daily or 0.6 mg (1 tablet) every other day 3. In 1 week - if your symptoms are improved/resolved - go ahead and start allopurinol 50 mg/d for 2weeks, increasing by 50 mg every 2 weeks until you reach 300 mg/d. -Goal uric acid level is less than 5 mg/dl 4. We will update blood work at your next visit. 5. Call if you are not tolerating the medications or if you are having problems with recurrent symptoms. Low Purine Diet for Gout Description Purines are substances in food, which when metabolized are turned in to uric acid, the substance that causes gout. A diet low in purines will help with other measures including medications to reduce the number of gout attacks. Diet Modifications In general, most patients will require medications to treat their gout. However, some dietary modifications may allow the use of lower doses, or eliminate the need for medicines entirely. Recommendations include: ??? Curtail meat intake in general and if consumed, limit to 3-4 ounces of meat per meal. ??? Intake of low fat dairy products tends to be protective against gout. ??? Obesity is associated with gout, so weight loss will help. ??? Avoid dehydration, by drinking about 4-8 glasses of water per day. This will lower the concentration of uric acid in the blood and help you get rid of more through the urine. ??? Alcohol should be limited. Beer tends to be the most likely form of alcohol to induce gout, followed by mixed drinks, and wine is the least likely to cause a problem. ??? Avoid: anchovies, brain, rosa, kidney, liver, mackerel, sardines, scallops, sweetbreads, wildgame, shrimp, lobster. ??? Avoid: lots of sugary beverages. ??? Use only in moderate amounts: asparagus, singleton???s or conley???s yeast, cauliflower, dried beans/peas/lentils, eel, fish, meat, mushrooms, oatmeal, green peas, poultry, shellfish, spinach, wheat germ, wheat bran, whole grain breads and cereals. ??? Feel free!: Beverages such as coffee, tea, diet sodas, breads and cereals, cheese, eggs, juices,milk, vegetables, cherries, other than those mentioned above. ??? Taking Vitamin C 500 mg every day may lower the uric acid a little bit. Allopurinol Purpose Allopurinol reduces the level of uric acid. Uric acid is a ???waste product?? of the body???s metabolism. When too much uric acid builds up in the body, gout attacks may begin. If the level of uric acid can be suppressed below 6, the number of gout attacks will gradually decrease and should eventually stop altogether. However, you must continue to take the drug forever for it to continue to be effective. Dose Allopurinol is available in 100 mg and 300 mg tablets. Most patients are started on a dose of 100 to300 mg once daily and the dose may be gradually increased until the uric acid level is below 6. The pills can be split if necessary. Some patients may be started on a very low dose such as 50 mg every other day. This depends in large part on your kidney function. Potential side effects About 1% of patients develop a hypersensitivity and get a skin rash, which usually consists of red, itchy patches. Stop allopurinol immediately if this happens and notify your doctor. Extremely rarely,the hypersensitivity reaction is more severe and can cause fever, abnormal blood counts, and alteredliver function. When starting allopurinol, there may be an increased risk of getting a gout flare in the first few months. Frequently, we recommend taking a second medication such as a nonsteroidal anti-inflammatory medicine (like ibuprofen or indomethacin), prednisone or colchicine along with allopurinol for several months, in an effort to prevent this type of a flare. Expected Effects The dose of allopurinol will need to be adjusted until your uric acid is less than 6. At that level,gout attacks should become less frequent and tophi (larger deposits of uric acid) may soften and then dissolve. Disappearance of tophi can take years to accomplish. Monitoring It is reasonable to obtain blood work 1-3 months after starting allopurinol to monitor uric acid andother parameters. After that point, these may be periodically tested at the discretion of your doctor. Special Instructions If you are on azathioprine (Imuran), the dose will need to be decreased if you go on allopurinol, since allopurinol may elevate the level of azathioprine in the body. Gout By [facility] staff Definition You wake up in the middle of the night, and your big toe feels as if it's on fire. It's hot, swollenand so tender that even the weight of a sheet on it seems intolerable. These problems could indicatean acute attack of gout -- or gouty arthritis -- a form of arthritis that's characterized by sudden,severe attacks of pain, redness and tenderness in joints. Gout is a complex disorder that can affect anyone. Men are more likely to get gout than women are, but women become increasingly susceptible to gout after menopause. Fortunately, gout is treatable, and there are ways to reduce the risk that gout will recur. Symptoms The signs and symptoms of gout are almost always acute, occurring suddenly -- often at night -- and without warning. They include: ??? Intense joint pain. Gout usually affects the large joint of your big toe but it can occur in your feet, ankles, knees, hands and wrists. If untreated, the pain typically lasts five to 10 days and then stops. The discomfort subsides gradually over one to two weeks, leaving the joint apparently normal and pain-free. ??? Inflammation and redness. The affected joint or joints become swollen, tender and red. Causes Gout occurs when urate crystals accumulate around your joint, causing the inflammation and intense pain of a gout attack. Urate crystals can form when you have high levels of uric acid in your blood. Your body produces uric acid when it breaks down purines, substances that are found naturally in your body, as well as in certain foods, such as organ meats, anchovies, rosa, asparagus and mushrooms. Normally, uric acid dissolves in your blood and passes through your kidneys into your urine. But sometimes your body either produces too much uric acid or your kidneys excrete too little uric acid. When this happens, uric acid can build up, forming sharp, needle-like urate crystals in a joint or surrounding tissue that cause pain, inflammation and swelling. Risk factors You're more likely to develop gout if you have high levels of uric acid in your body. Factors that increase the uric acid level in your body include: ??? Lifestyle factors. Choices you make in your everyday life may increase your risk of gout. Excessive alcohol use -- generally more than two drinks a day for men and more than one for women -- increases the risk of gout. ??? Medical conditions. Certain diseases and conditions make it more likely that you'll develop gout. These include untreated high blood pressure (hypertension) and chronic conditions, such as diabetes, high levels of fat and cholesterol in the blood (hyperlipidemia), and narrowing of the arteries (arteriosclerosis). ??? Certain medications. The use of thiazide diuretics -- commonly used to treat hypertension -- andlow-dose aspirin also can increase uric acid levels. So can the use of anti-rejection drugs prescribed for people who have undergone an organ transplant. ??? Family history of gout. If other members of your family have had gout, you're more likely to develop the disease. ??? Age and sex. Gout occurs more often in men than it does in women, primarily because women tend to have lower uric acid levels than men do. After menopause, however, women's uric acid levels approach those of men. Men also are more likely to develop gout earlier -- usually between the ages of 40 and 50 -- whereas women generally develop signs and symptoms after menopause. When to seek medical advice If you experience sudden, intense pain in a joint, call your doctor. Gout that goes untreated can lead to worsening pain and joint damage. Seek medical care immediately if you have a fever and a joint is hot and inflamed, which can be a sign of infection. Tests and diagnosis Tests to help diagnose gout may include: ??? Joint fluid test. Your doctor may use a needle to draw fluid from your affected joint. When examined under the microscope, your joint fluid may reveal urate crystals. ??? Blood test. Your doctor may recommend a blood test to measure the uric acid level in your blood.Blood test results can be misleading, though. Some people have high uric acid levels, but never experience gout. And some people have signs and symptoms of gout, but don't have unusual levels of uric acid in their blood. Complications People with gout can develop more-severe conditions, such as: ??? Recurrent gout. Some people may never experience gout signs and symptoms again. But others may experience gout several times each year. Medications may help prevent gout attacks in people with recurrent gout. ??? Advanced gout. Untreated gout may cause deposits of urate crystals to form under the skin in nodules called tophi (TOE-fi). Tophi usually aren't painful, but they can become swollen and tender during gout attacks. ??? Kidney stones. Urate crystals may collect in the urinary tract of people with gout, causing kidney stones. Medications can help reduce the risk of kidney stones. Treatments and drugs Treatment for gout usually involves medications. What medications you and your doctor choose will bebased on your current health and your own preferences. Medications for gout include: ??? Nonsteroidal anti-inflammatory drugs (NSAIDs). NSAIDs may control inflammation and pain in people with gout. NSAIDs include eezn-pwn-ifoygxb options such as ibuprofen (Advil, Motrin, others) and naproxen (Aleve, others), as well as more powerful prescription NSAIDs. NSAIDs carry risks of stomach pa in, bleeding and ulcers. ??? Colchicine. Colchicine controls gout effectively, but may cause uncomfortable side effects, suchas nausea, vomiting and diarrhea. If you're unable to take NSAIDs, your doctor may recommend colchicine. ??? Steroids. Steroid medications, such as the drug prednisone may control gout inflammation and pain. Steroids may be administered in pill form, or they can be injected into your joint. Side effects of steroids may include thinning bones, poor wound healing and a decreased ability to fight infection.Steroids may be reserved for people who can't take either NSAIDs or colchicine. Prevention Medications If you experience several gout attacks each year or if your gout attacks are less frequent but particularly painful, your doctor may recommend medication to reduce your risk of future gout attacks. Youusually begin taking preventive medications once your acute gout attack has subsided. Options include: ??? Medication that blocks uric acid production. Allopurinol (Zyloprim, Aloprim) limits the amount of uric acid your body makes. This may lower your blood's uric acid level and reduce your risk of gout. Side effects include a rash and low blood counts. ??? Medication that improves uric acid removal. Probenecid improves your kidneys' ability to remove uric acid from your body. This may lower your uric acid levels and reduce your risk of gout, but the level of uric acid in your urine is increased. Side effects include a rash, stomach pain and kidney stones. Gout diet No specific dietary changes are proved to reduce your risk of gout. However, it may make sense to eat foods that contain fewer purines. If you want to try a gout diet, try to: ??? Cut back on the amount of red meat and seafood you eat. ??? Avoid alcoholic beverages. ??? Eat more low-fat dairy products. ??? Eat more complex carbohydrates, such as whole-grain breads. Choose portions that allow you to maintain a healthy weight. Losing weight may decrease uric acid levels in your body. But avoid fasting or rapid weight loss, since doing so may temporarily raise uric acid levels. Lifestyle and home remedies Take care of your body during a gout attack. While you're waiting for your medications to take effect, you may find it easier to cope with pain and inflammation if you: ??? Reduce the amount of animal protein you eat. Government guidelines advise eating no more than 5 to 6 ounces of lean meat, poultry or fish a day for nearly everyone -- especially people who have gout, because high-protein foods increase the blood level of uric acid. Organ meats (liver, brains, kidney and sweetbreads), anchovies, rosa and mackerel are particularly high in purines. ??? Avoid alcohol. Alcohol can inhibit the excretion of uric acid. If you're having a gout attack, it's best to avoid alcohol completely. ??? Drink plenty of liquids. Fluids help dilute uric acid in your blood and urine, so be sure you get enough water and other fluids every day. Alternative medicine If gout treatments aren't working as well as you'd hoped, you may be interested in trying complementary and alternative treatments for your gout. Discuss these treatments with your doctor first. Your doctor can help you weigh the benefits and risks and tell you if the treatments will interfere with your gout medications. Though you may be reluctant to discuss complementary and alternative medicine with your doctor, manyprinstream doctors are becoming more open to discussing these options. But, since few of these treatments have been extensively studied in clinical trials, it's difficult to assess whether these treatments are helpful for gout pain. In some cases, the risks of these treatments aren't known. Some complementary and alternative treatments that have been studied include: ??? Coffee. Studies have found an association between coffee drinking -- both regular and decaffeinated -- and lower uric acid levels, though no study has proved how or why coffee may have an influenceon uric acid in your body. The available evidence isn't enough to encourage noncoffee drinkers to start, but it may give researchers clues to new ways of treating gout in the future. ??? Vitamin C. Supplements containing vitamin C may reduce the levels of uric acid in your blood. However, vitamin C hasn't been studied as a treatment for gout. Don't assume that if a little vitamin Cis good for you, then lots is better. Megadoses of vitamin C may increase your body's uric acid levels. Talk to your doctor about what a reasonable dose of vitamin C may be. And don't forget that you can increase your vitamin C intake by eating more fruits and vegetables, especially oranges. ??? Cherries. Cherries have been associated with lower levels of uric acid in studies, but it isn't clear if they have any effect on gout signs and symptoms. Adding cherries and other dark-colored fruits, such as blackberries, blueberries, purple grapes and raspberries, to your diet may be a safe way to supplement your gout treatment, but discuss it with your doctor first. Other complementary and alternative medicine treatments may help you cope until your gout pain subsides or your medications take effect. For instance, relaxation techniques, such as deep-breathing exercises D CUTTER documented in this encounter Progress Notes Porsha Loera PA-C - 10/01/2020 11:15 AM CST Rheumatology Clinic Note Encounter Date: 10/01/2020 Subjective Chief complaint: Follow up history of psoriatic arthritis, psoriasis, osteoarthritis; recent crystalconfirmed chronic tophaceous gout with hyperuricemia History of present illness: Abimbola Samuels was last seen by Dr. Davila on 09/24/2020. The patient has a history of psoriatic arthritis and psoriasis on methotrexate 20 mg weekly which has been under good control. She has generalized osteoarthritis and is s/p bilateral TKA. She recently saw Dr. Davila a few weeks ago with left third PIP joint swelling without overlying erythema with associated yellowish small nodules, arthrocentesis only obtained a small amount of sample that wasnegative for crystals. Intra-articular cortisone injection was helpful for this and swelling resolved but nodules are still present. Then more recently, she developed acute unexplained swelling and redness over the right third PIP and DIP joints. Arthrocentesis was again performed and confirmed the presence of monosodium urate crystals confirming chronic tophaceous gout. She has underlying chronic renal insufficiency with estimated GFR of 36. She also requires the use of chlorthalidone and furosemide. Her serum uric acid on 09/24/2020 was 9.6 mg/dl. Interval History Reviewed: She returns for a 1 week follow up. 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 She is seen today to re-evaluate recent right third PIP and DIP inflammatory arthritis/gouty arthritis, review laboratory test results, and discuss starting long-term urate lowering therapy- allopurinol. She been taking colchicine 1 tablet/d, unable to tolerate b.i.d. dosing due to loose stools - feels like she is tolerating once a day dosing ok. The swelling and pain over the right third PIP and DIP joint has improved by about 50% since last week with the colchicine, right third fingers still has somewhat of a dactylitic appearance. Denies swollen joints otherwise. Blood work from September 24, 2020 demonstrated mild anemia Hgb 11.8 and RBC 3.57, elevated creatinine 1.30/GFR 36, normal ALT 25, and serum uric acid level of 9.6 mg/dl. Review of systems: Comprehensive review of systems form filled out by the patient for today's visit was reviewed, sent to [facility] and is as noted above and/or notable for: hair loss, diarrhea/loose stools, problems sleeping. Social History: . She lives in [place]. Nonsmoker. Drinks 1 small glass of wine with dinner. Patient Active Problem List Diagnosis Date Noted ??? Hyperuricemia 09/10/2020 ??? S/P total knee arthroplasty, bilateral 03/29/2018 ??? S/P appendectomy 03/29/2018 ??? Restless legs syndrome (RLS) 03/29/2018 ??? Chronic left shoulder pain 03/29/2018 ??? Psoriatic arthritis (HRC) 03/29/2018 ??? Sensorineural hearing loss 02/22/2005 Overview Note: LW Onset: [id number] ; Hearing Loss Sensorineural ??? Undiagnosed cardiac murmurs 02/22/2005 Overview Note: LW Modifier: functional LW Onset: [id number] ; Heart Murmur ??? Right bundle branch block 02/22/2005 Overview Note: LW Onset: [id number] ??? Obesity ([facility]) 05/04/2004 Overview Note: LW Onset: [id number] ??? Essential hypertension ([facility]) 01/17/2003 Overview Note: Hypertension ??? Hypothyroidism ([facility]) 01/17/2003 Overview Note: Hypothyroidism Acquired ??? Osteoarthritis 01/17/2003 Overview Note: DJD Allergies Allergen Reactions ??? Other PN: LW Other1: -nka ??? Propoxyphene PN: LW Reaction: lethargic ??? Review Contrast Media PN: LW CM1: CONTRAST- nka Reaction : ??? Review Food Intolerance PN: LW FI1: nka LW FI2: ??? Sulindac PN: LW Reaction: HIVES Objective EXAM Vitals: Per flow sheet. General: Very pleasant. NAD. Eyes: Externally Clear. Skin: Warm and dry. Faint yellowish nodules over the right third DIP joint. Faint yellowish nodules over the left third PIP joint. MSK: Right third finger has a dactylitic appearance - is warm and tender but is not erythematous. She is able to make a fairly good first on the right. Slight tenderness, swelling, and faint yellowish nodules over the right third DIP joint, slight tenderness and swelling without overlying erythema or warmth over the right third PIP joint. Osteoarthritic changes finger knuckle joints bilaterally. No significant synovitis/dactylitis/inflammatory arthritis or joint effusion in any additional joints. ?? Assessment: 1. Psoriatic arthritis, psoriasis (under good control) 2. Chronic tophaceous gout, intermittent gouty arthritis, crystal proven with hyperuricemia 3. Chronic renal insufficiency requiring dieretics 4. Hypertension 5. Chronic long-term high-risk medication and monitoring. Plan: 1. Princess returns today in follow up of newly diagnosed crystal proven tophaceous gout. We reviewed the diagnosis, pathogenesis, and treatment of acute and chronic gout together today. She has marked hyperuricemia - 9.6 mg/dl, chronic renal insufficiency, and requires both loop and thiazide diuretics which are all risk factors for gout. Additionally, a lot of patients with psoriasis also have hyperuricemia. Informational handout on gout and low-purine diet was provided to her. Reviewed healthy weight loss and staying well hydrated. 2. We discussed long-term urate lowering therapy with allopurinol. Risks, benefits, and side effectswere discussed with her today including allopurinol hypersensitivity syndrome. Informational handoutprovided. Once her current gout flare has subsided (she will treat with brief course of prednisone as below) she will start allopurinol 50 mg/d for 2 weeks - increasing the dose by 50 mg every 2 weeks until she reaches 300 mg/d. Our goal serum uric acid level will be less than 5 given the tophaceous gout. We will update blood work at her upcoming visit in 1 month and adjust allopurinol plans according based on the serum uric acid level. 3. She will continue colchicine 0.6 mg/d for gout prophylaxis, she feels that she is tolerating thisdose fine, but I have reminded her that if this dose causes loose stools/diarrhea that becomes more bothersome she will cut the dose down to 0.3 mg/d or 0.6 mg every other day. 4. We are going to treat the remaining right third finger symptoms with a brief course of [id number] mg/d for 5 days - she will be off of this several days before her second COVID vaccine. We reviewed how to proceed if she is to develop another flare of the gout in the future - she can consider a local cortisone injection verses a brief course of prednisone 30 mg/d for 5-7 days. Prescription was sent to her pharmacy today. 5. For history of psoriatic arthritis and psoriasis, continue methotrexate 20 mg once weekly along with folic acid mg/d for now. If her gout is under good control in the future, we will try to cut downthe methotrexate to the least effective dose. Monitoring blood work is stable, continue blood test monitoring every 3 months. 6. Follow up with Dr. Davila in October 2020 as scheduled, earlier if problems arise. Plan discussed with the patient in detail, verbalized understanding and agreement with this approach, all questions answered. 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
--- OUTSIDE RECORDS SUMMARY | 2022-07-24 10:30 | XMS_ITS | Encounter Summary ---
:1940 Author Organization [employer] Address [address] [place] [address] Care Team Providers Name Role Phone Non Pn, Clinician Primary Care Provider Unavailable Reason for Visit Reason Comments Phone Visit Follow-up Encounter Details Date Type Department Care Team Description 02/03/2020 Phone Visit Neha Davila Psoriatic arth ritis (HRC) (Primary Dx); Rheumatology MD Denise High risk medication use; [address] [address] Osteoarthritis of multiple j oints, [place] [address] [facility] [phone] [place], [place] [id number] Social History Tobacco Use Types Packs/Day Years Used Date Smoking Tobacco: Never Smokeless Tobacco: Never Alcohol Use Standard Drinks/Week Comments Yes 0 (1 standard drink = 0.6 oz pure alcoho l) Sex Assigned at Date Recorded Not on file documented as of this encounter Patient Instructions Patient InstructionsDenise Davila MD - 02/03/2020 11:30 AM CDT Get flu shot when available in early fall (about April to May). documented in this encounter Progress Notes Denise Davila MD - 02/03/2020 11:30 AM CDT SUBJECTIVE: Follow-up for psoriatic arthritis. This was a phone visit. The patient was at home. I was in my office in [place], [place]. History of present illness: This is the three-month follow-up for the patient. She used to take combination of sulfasalazine and Remicade in the past. She discontinued both as she was doing well. As she has not been on methotrexate, we decided to try methotrexate 15 mg weekly and folic acid 1 mg a day. This has been well tolerated. She has tapered prednisone down to the current dose of 2.5 mg every other day. Since she reduce the dose of prednisone, she has noticed some puffiness of her finger knuckles when she wakes up in morning. Her psoriasis is still doing well. Her last blood test monitoring on 01/30/2020 was performed locally in her hometown. The results werefaxed to me to review. There were all unremarkable except for serum creatinine 1.4 which has been stable. Assessment and plan: 1. Psoriatic arthritis. 2. Chronic long-term high-risk medication and monitoring. The presence of swollen finger knuckle joints when she wakes up in the morning is suggestive of ongoing disease activity of psoriatic arthritis. And therefore, I suggested her to increase the dose of methotrexate to 20 mg weekly while continuing same dose of folic acid 1 mg a day. I will increase the dose of prednisone temporarily to 5 mg a day for 1 month, then she will cut it down and stay at 2.5 mg a day. I suggest a clinical follow-up again in 2-3 months. Total time is 15 minutes. documented in this encounter Plan of Treatment Upcoming Encounters Date Type Specialty Care Team Description 09/29/2022 Appointment Rheumatology Kal Davila MD [address] [facility] [address] (Wo rk) documented as of this encounter Visit Diagnoses Diagnosis Psoriatic arthritis (HRC) - Primary Psoriatic arthropathy High risk medication use Encounter for long-term (current) use of other medications Osteoarthritis of multiple joints, unspe cified osteoarthritis type documented in this encounter Care Teams Pulverizer Mill Operator Relationship Specialty Start Date End Date Non Pn, Clinician, PCP - General 7/20/18 [place] [address] documented as of this encounter
--- OUTSIDE RECORDS SUMMARY | 2022-07-24 10:30 | XMS_ITS | Encounter Summary ---
:1940 Author Organization [facility] Address [address] [place] [address] Care Team Providers Name Role Phone Non Pn, Clinician Primary Care Provider Unavailable Encounter Details Date Type Department Care Team Description 08/15/2019 Notes/Orders Neha Rheumatol uriel Davila, [address] [facility] [place] [address] [address] [facility] [phone] [facility] N [address] (Wo rk) Social History Tobacco Use Types Packs/Day Years Used Date Smoking Tobacco: Never Smokeless Tobacco: Never Sex Assigned at Date Recorded Not on file documented as of this encounter Plan of Treatment Upcoming Encounters Date Type Specialty Care Team Description 09/29/2022 Appointment Rheumatology Kal Davila MD [address] [facility] N 139666 (Wo rk) documented as of this encounter Visit Diagnoses Not on filedocumented in this encounter Care Teams Rehabilitation Engineer Relationship Specialty Start Date End Date Non Pn, Clinician, PCP - General 03/01/18 [place] [address] documented as of this encounter
--- OUTSIDE RECORDS SUMMARY | 2022-07-24 10:30 | XMS_ITS | Encounter Summary ---
:1940 Author Organization [employer] Address [address] [place] [address] Care Team Providers Name Role Phone Non Pn, Clinician MD Primary Care Provider Unavailable Reason for Visit Reason Comments LAB RESULTS Encounter Details Date Type Department Care Team Description 06/23/[address] [facility] [address] Sherine Davila i, LAB RESULTS Rheumatology [address] [place] [address] [place], [place] [id number] (Wo rk) Social History Tobacco Use Types Packs/Day Years Used Date Smoking Tobacco: Never Smokeless Tobacco: Never Alcohol Use Standard Drinks/Week Comments Yes 0 (1 standard drink = 0.6 oz pure alcoho l) Sex Assigned at Date Recorded Not on file documented as of this encounter Nursing Notes Shauna Lindsay LPN - 06/23/2020 11:18 AM CST Called patient back and they verbalized an understanding. They were encouraged to call back with anyfuture questions or concerns. CAB STARTER Denise Davila MD - 06/23/2020 10:59 AM CST This was the results which I put on the note but they have not scanned onto the EHR yet. Outside labs: ?? On 05/13/2020, normal ALT, serum creatinine 1.7, white blood cells 7.62, hemoglobin 11.8, platelet count 209. Her complete blood counts and liver enzyme are unremarkable. The kidney function test (creatinine) is higher than her (higher) baseline about 1.4-1.5 in our records. This could be related to the diuretic use (furosemide). Avoid dehydration and the use of ibuprofen/Advil/naproxen and Aleve. Continue to have the tests monitored every 3 months or so. CAB STARTER Shauna Lindsay LPN - 06/23/2020 9:49 AM CST Pt called for lab results from 05/13/20. pLEase advise. CAB STARTER documented in this encounter Plan of Treatment Upcoming Encounters Date Type Specialty Care Team Description 09/29/2022 Appointment Rheumatology Kal Davila MD [address] [facility] [address] N [address] (Wo rk) documented as of this encounter Visit Diagnoses Not on filedocumented in this encounter Care Teams [employer] Roboticist Relationship Specialty Start Date End Date Non Pn, Clinician, PCP - General 03/01/18 [place] [address] documented as of this encounter
--- OUTSIDE RECORDS SUMMARY | 2022-07-24 10:30 | XMS_ITS | Encounter Summary ---
:1940 Author Organization [employer] Address [address] [address] Care Team Providers Name Role Phone Non Pn, Clinician Primary Care Provider Unavailable Reason for Visit Reason Comments Follow-up Encounter Details Date Type Department Care Team Description 09/24/2020 Office Visit [place] Psoriatic arth ritis (HRC) (Primary Dx); Rheumatology MD Denise Hyperuricemia; [address] [employer] [address] High risk medication use; [place] [address] Blvd Nodule of finger, left; [phone] [place], [place] Inflammato ry arthritis [address] Social History Tobacco Use Types Packs/Day Years Used Date Smoking Tobacco: Never Smokeless Tobacco: Never Alcohol Use Standard Drinks/Week Comments Yes 0 (1 standard drink = 0.6 oz pure alcoho l) Sex Assigned at Date Recorded Not on file documented as of this encounter Last Filed Vital Signs Vital Sign Reading Time Taken Comments Blood Pressure 146/72 09/24/2020 11:16 AM COMMUNITY HEALTH COUNSELOR Pulse 70 09/24/2020 11:16 AM COMMUNITY HEALTH COUNSELOR Temperature 36.5 ??C (97.7 ??F) 09/24/2020 11:16 AM COMMUNITY HEALTH COUNSELOR Respiratory Rate - - Oxygen Saturation - - Inhaled Oxygen Concentration - - Weight - - Height - - Body Mass Index - - documented in this encounter Progress Notes Denise Davila MD - 09/24/2020 11:15 AM CST SUBJECTIVE: Right third PIP and D IP joint swelling. Background history of psoriatic arthritis, hyperuricemia with clinically suspected gout. History of present illness: I saw this patient a few weeks ago. She has clinical history of psoriatic arthritis for which methotrexate 20 mg weekly was given. The psoriasis has been under good control.She was found to have left third PIP joint slight swelling without overlying redness. However, I also felt yellow itch small nodules. An arthrocentesis only obtained small amount of sample which was negative for crystal. Intra-articular cortisone injection was helpful. The left third PIP joint swelling is not there anymore although the faint yellow nodules are still possible. Started about 4 days ago, she started noticing unexplained swelling and redness over the right thirdDIP joint. Within a few days, it also moved to involve right third PIP joint. I then decided to ask her to come here for further evaluation and for repeated arthrocentesis. She has an underlying chronic kidney insufficiency with estimated GFR of 36 and she also requires the use of chlorthalidone and furosemide. Her serum uric acid on 03/29/2018 was 8.3. Past medical history, family and social history, current medications and adverse reactions were updated in EMR. Physical exams: BP (!) 146/72 (BP Location: Right Arm, BP Cuff Size: Regular) Pulse 70 Temp 97.7??F (36.5 ??C) (Temporal Artery) General appearance: An elderly female who was not in acute physical distress. Skin: Slight redness and faint yellowish nodules over the right third DIP joint. Slight swelling without overlying erythema or warmth over the right third PIP joint. Faint small yellowish nodules over the left third PIP joint without overlying erythema or warmth or significant synovitis/effusion. Osteoarthritic changes finger knuckle joints. No significant synovitis/inflammatory arthritis in any joints. Assessment and plan: 1. 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 2. Psoriatic arthritis, under good control. 3. Chronic long-term high-risk medication and monitoring. The patient has clinical inflammatory arthritis of the right third PIP and right third DIP joints onexamination today. The prior inflammatory arthritis and synovitis of the left third PIP have completely resolved. However, she does have small yellowish nodules over the left third PIP as well as the right second DIP joints on examination today highly suspicious for tophi. The arthrocentesis about 1-2weeks ago over the left third PIP joint was nondiagnostic and I suspected that I might have got enough sample. She has significant hyperuricemia, chronic kidney insufficiency and requiring both loop and thiazide diuretics and they are all risk factors for gout. In addition, a lot of patients with psoriasis also have hyperuricemia. I suggested repeated arthrocentesis over the right second DIP joint for diagnostic purpose. Indication, contraindications and complications were discussed with her including plates as bleeding section.She agreed to pursue. Right second DIP joint was prepped in a sterile fashion. Ethyl chloride spray w as used as a local anesthetic agent. A 20 gauge needle was introduced and small amount of stool fluid was obtained and placed on a slight for crystal analysis. Small amount of whitish tophaceous substance was draining out through the needle area confirming clinical tophaceous gout. I also looked underthe polarized microscopy. My preliminary interpretation was that she had plain the amount of both intracellular and extracellular monosodium uric acid needle shaped crystals. Will send out for confirmation with pathologist. She will have blood test today for CBC, ALT in creatinine and serum uric acid. I will treat her current gouty arthritis with colchicine. She will take the first dose of colchicine 1.2 mg today. From tomorrow, she will take 0.6 mg twice a day. If she has diarrhea, she will cut it down to only 0.6 mg a day. I asked the patient to come back to see Porsha in a week. If her gouty arthritis is subsided, the patient will be continued on colchicine 0.6 mg daily prophylactically, allopurinol will be started and the dose be gradually increased to the dose that will keep serum uric acid less than 5. If colchicine prophylactic 0.6 mg daily causes diarrhea, the dose can be cut down to 0.3 mg a day or 0.6 mg every other day instead. I will continue her on methotrexate 20 mg weekly in the meantime since her prior clinical manifestation was more polyarticular inflammatory arthritis suggestive of psoriatic arthritis. If her gout attack is under good control in the future, I will try to cut down methotrexate to the least effective dose in the future. She has been updated with annual influenza, pneumococcal and the first dose of COVID vaccine. I would like to see her back in 4-6 weeks. She will see Porsha next week as above. Total time is 40 minutes, 25 minutes counseling, 10 minutes procedure. UNITY HEALTH COUNSELOR Denise Davila MD - 09/24/2020 11:15 AM CST Princess, the fluid is confirmed to contain uric acid crystals as discussed. UNITY HEALTH COUNSELOR documented in this encounter Plan of Treatment Upcoming Encounters Date Type Specialty Care Team Description 09/29/2022 Appointment Rheumatology Kal Davila MD [address] [facility] [address] (Wo rk) documented as of this encounter Procedures Procedure Name Priority Date/Time Associated Diagnosis Comme nts CRYSTALS,SYNOVIAL Routine 09/24/2020 11:47 AM Hyperurice richard Results for this COMMUNITY HEALTH COUNSELOR Nodule of finger, procedure are in left the results Inflammatory section. arthritis documented in this encounter Results (ABNORMAL) SYCRY - Synovial Fluid Crystals (09/24/2020 11:47 AM COMMUNITY HEALTH COUNSELOR) [facility] Method Time Signature Synovial Finger, right 09/24/2020 [facility] Source middle 4:20 PM COMMUNITY HEALTH COUNSELOR LABORATORY Crystals, Intracellular No Crystals 09/24/2020 [facility] Synovial and Seen 4:20 PM COMMUNITY HEALTH COUNSELOR LAB[facility]ORY extracellular Monosodium urate crystals present (A) Specimen Anatomical Collection Method Collection Time Receive d Time (Source) Location / / Volume Laterality Synovial Fluid ENTIRE FINGER / 09/24/2020 11:47 2020 Unknown AM COMMUNITY HEALTH COUNSELOR 11:55 AM COMMUNITY HEALTH COUNSELOR Denise Davila MD LAB_1 Performing Organization Address City/State/ZIP Code Phon e Number [facility] [address] [place] [address] documented in this encounter Visit Diagnoses Diagnosis Psoriatic arthritis (HRC) - Primary Psoriatic arthropathy Hyperuricemia Other abnormal blood chemistry High risk medication use Encounter for long-term (current) use of other medications Nodule of finger, left Inflammatory arthritis Unspecified inflammatory polyarthropathy documented in this encounter Care Teams Dry Curer Relationship Specialty Start Date End Date Non Pn, Clinician, PCP - General 03/01/18 [place] [address] documented as of this encounter
--- OUTSIDE RECORDS SUMMARY | 2022-07-24 10:30 | XMS_ITS | Encounter Summary ---
:1940 Author Organization [employer] Address [address] [place] [address] Care Team Providers Name Role Phone Non Pn, Clinician Primary Care Provider Unavailable Encounter Details Date Type Department Care Team Description 05/20/2020 Orders Only Initial Department Provider, Ernie, [facility] [address] ECHEVARRIA MD [place], [place] [address] Interface provider [phone] [place] [address] Social History Tobacco Use Types Packs/Day Years Used Date Smoking Tobacco: Never Smokeless Tobacco: Never Alcohol Use Standard Drinks/Week Comments Yes 0 (1 standard drink = 0.6 oz pure alcoho l) Sex Assigned at Date Recorded Not on file documented as of this encounter Plan of Treatment Upcoming Encounters Date Type Specialty Care Team Description 09/29/2022 Appointment Rheumatology Kal Davila MD [address] [facility] N [address] (Wo rk) documented as of this encounter Procedures Procedure Name Priority Date/Time Associated Diagnosis Comme nts LABORATORY REPORT 05/20/2020 Results fo r this procedure are in the resu lts section. documented in this encounter Results LABORATORY REPORT (05/20/2020) Narrative This result has an attachment that is no t available. Interface Provider DUMMY/OTHER/AR documented in this encounter Visit Diagnoses Not on filedocumented in this encounter Care Teams Judge Clerk Relationship Specialty Start Date End Date Non Pn, ClinicianMD PCP - General 03/01/18 [place] [address] documented as of this encounter
--- OUTSIDE RECORDS SUMMARY | 2022-07-24 10:30 | XMS_ITS | Encounter Summary ---
:1940 Author Organization [employer] Address [address] [place] [address] Care Team Providers Name Role Phone Non Pn, Clinician Primary Care Provider Unavailable Reason for Visit Reason Comments Lab Orders Needed Encounter Details Date Type Department Care Team Description 05/05/2020 Telephone [facility] [address] Davila Or[address] rs Needed Rheumatology MD Denise [address] [place], [place] [address] [address] [place], [place] [phone] (Wo rk) Social History Tobacco Use Types Packs/Day Years Used Date Smoking Tobacco: Never Smokeless Tobacco: Never Alcohol Use Standard Drinks/Week Comments Yes 0 (1 standard drink = 0.6 oz pure alcoho l) Sex Assigned at Date Recorded Not on file documented as of this encounter Nursing Notes Shauna Lindsay LPN - 05/05/2020 10:18 AM CDT Pt called asking that her lab orders be [facility] [phone] Lab This was done today. documented in this encounter Plan of Treatment Upcoming Encounters Date Type Specialty Care Team Description 09/29/2022 Appointment Rheumatology Kal Davila MD [address] [address] (Wo rk) documented as of this encounter Visit Diagnoses Not on filedocumented in this encounter Care Teams Motors [employer] Controls Tester Relationship Specialty Start Date End Date Non Pn, Clinician, PCP - General 03/01/18 [place] [address] documented as of this encounter
--- OUTSIDE RECORDS SUMMARY | 2022-07-24 10:30 | XMS_ITS | Encounter Summary ---
:1940 Author Organization [employer] Address [address] [place] [address] Care Team Providers Name Role Phone Non Pn, Clinician Primary Care Provider Unavailable Reason for Visit Reason Comments Follow-up Encounter Details Date Type Department Care Team Description 10/21/2019 Office Visit [place] Davila Psoriatic arth ritis (HRC) (Primary Dx); Rheumatology MD Denise Osteoarthritis of multiple joints, unspe cified osteoarthritis type; [address] [employer] [address] [place] [address] [place] [address] [facility] [phone] [place], [place] [id number] Social History Tobacco Use Types Packs/Day Years Used Date Smoking Tobacco: Never Smokeless Tobacco: Never Alcohol Use Standard Drinks/Week Comments Yes 0 (1 standard drink = 0.6 oz pure alcoho l) Sex Assigned at Date Recorded Not on file documented as of this encounter Last Filed Vital Signs Vital Sign Reading Time Taken Comments Blood Pressure 141/66 10/21/2019 11:47 AM CDT Pulse 75 10/21/2019 11:47 AM CDT Temperature - - Respiratory Rate - - Oxygen Saturation - - Inhaled Oxygen Concentration - - Weight 83.9 kg (185 lb) 10/21/2019 11:47 AM CDT Height - - Body Mass Index 31.02 03/29/2018 9:30 AM CDT documented in this encounter Progress Notes Denise Davila MD - 10/21/2019 12:00 PM CDT SUBJECTIVE: Follow-up for psoriatic arthritis, osteoarthritis. History of present illness: This is a 2 month follow-up for the patient. She used to take combination of sulfasalazine and Remicade. When she had a flare, she started having psoriasis over her palms and inflammatory arthritis of her fingers. As the patient has not been put on methotrexate, we mutuallyagreed to try methotrexate first at this time with additional Remicade if needed. I put her on methotrexate at the last clinic visit 15 mg weekly together with folic acid 1 mg a day. A course of prednisone was also given and she has tapered prednisone down to the current dose of 5 mg a day. She has had a significant improvement. The psoriasis has gone away completely. The swelling of her finger knuckle joints have improved. She still has mechanical finger joint pain and lower back pain which is mechanical in nature. The blood test monitoring less than 3 months ago was unremarkable. Past medical history, family and social history, current medications and adverse reactions were updated in EMR. Physical exams: BP (!) 141/66 (BP Location: Left Arm, BP Cuff Size: Regular) Pulse 75 Wt 185 lb (83.9 kg) BMI 31.02 kg/m?? General appearance: An elderly female who was not in acute physical distress. Skin: Complete resolution of the psoriasis over her palm areas. Musculoskeletal exams: All 4 extremities were examined. Osteoarthritic changes over her finger knuckle joints. No significant synovitis/inflammatory arthritis/dactylitis or effusion in any joints. Negative straight leg raising test. Assessment and plan: 1. Psoriatic arthritis. Doing well. 2. Generalized osteoarthritis. 3. Chronic long-term high-risk medication and monitoring. Pain is rated as 5.5. RAPID 3 score 13.2. She has no more clinically detectable synovitis on her hands or in any other peripheral joint areas.The mechanical low back pain is unlikely to be from psoriatic arthritis. The palmar psoriasis has resolved completely. Thankfully, methotrexate is also well tolerated and I will continue it at the current dose of 15 mg weekly together with folic acid 1 mg a day. I will continue to reduce the dose of prednisone and the new prescription and instruction were printed out for her to review. Follow-up again in 3 months. Blood test monitoring for methotrexate before the appointment. Total time is 15 minutes, 10 minutes counseling. documented in this encounter Plan of Treatment Upcoming Encounters Date Type Specialty Care Team Description 09/29/2022 Appointment Rheumatology Kal Davila MD [address] [place] [facility] [place] [address] [address] (Wo rk) documented as of this encounter Visit Diagnoses Diagnosis Psoriatic arthritis (HRC) - Primary Psoriatic arthropathy Osteoarthritis of multiple joints, unspe cified osteoarthritis type High risk medication use Encounter for long-term (current) use of other medications documented in this encounter Care Teams Rivet Flunky Relationship Specialty Start Date End Date Non Pn, Clinician, PCP - General 03/01/18 [place] [address] documented as of this encounter
--- OUTSIDE RECORDS SUMMARY | 2022-07-24 10:30 | XMS_ITS | Encounter Summary ---
:1940 Author Organization [employer] Address [address] [address] Care Team Providers Name Role Phone Non Pn, Clinician MD Primary Care Provider Unavailable Reason for Visit Reason Onset Date Comments Refill 03/15/2020 Encounter Details Date Type Department Care Team Description 03/15/2020 Refill [facility] [address] i, Refill Rheumatology [address] [place] [address] [place], [place] [phone] (Wo rk) Social History Tobacco Use Types Packs/Day Years Used Date Smoking Tobacco: Never Smokeless Tobacco: Never Alcohol Use Standard Drinks/Week Comments Yes 0 (1 standard drink = 0.6 oz pure alcoho l) Sex Assigned at Date Recorded Not on file documented as of this encounter Nursing Notes Moriah Diaz PA-C - 03/15/2020 2:54 PM CDT Lab results in the media file from [place] 01-30-2020. CBC, ALT and creatinine are normal. Shauna Lindsay LPN - 03/15/2020 2:48 PM CDT Last visit: 02/03/20 Future visit: 05/07/20 Pharmacy verified. Please check, sign and send. Thank you. Pt was getting this filled at [facility], but they have been out of it for a month. She is wanting to get it at [facility] in [place], [place] documented in this encounter Plan of Treatment Upcoming Encounters Date Type Specialty Care Team Description 09/29/2022 Appointment Rheumatology Kal Davila MD [address] [facility] [phone] (Wo rk) documented as of this encounter Visit Diagnoses Not on filedocumented in this encounter Care Teams Repairing Calibrator Relationship Specialty Start Date End Date Non Pn, Clinician, PCP - General 03/01/18 [place] [address] documented as of this encounter
--- OUTSIDE RECORDS SUMMARY | 2022-07-24 10:30 | XMS_ITS | Encounter Summary ---
:1940 Author Organization [employer] Address [address] [place] [address] Care Team Providers Name Role Phone Non Pn, Clinician Primary Care Provider Unavailable Encounter Details Date Type Department Care Team Description 03/22/2021 Lab Visit [facility] Encoun ter for long-term current use of high risk medication; Laboratory Chronic tophaceous gout [address] [place] [address] Social History Tobacco Use Types Packs/Day Years Used Date Smoking Tobacco: Never Smokeless Tobacco: Never Alcohol Use Standard Drinks/Week Comments Yes 0 (1 standard drink = 0.6 oz pure alcoho l) Sex Assigned at Date Recorded Not on file documented as of this encounter Progress Notes Denise Davila MD - 03/22/2021 2:10 PM CDT Princess, the blood test for the uric [...] Description 09/29/2022 Appointment Rheumatology Kal Davila MD [address] [address] (Wo rk) documented as of this encounter Procedures Procedure Name Priority Date/Time Associated Comments Diagnosis CBC AND DIFFERENTIAL Routine 03/22/2021 1:09 PM Encounter for Results for this PANEL CDT long-term current procedure are in use of high risk the results medication section. CREATININE / GFR Routine 03/22/2021 1:09 PM Encounter for Resu lts for this CDT long-term current procedure are in use of high risk the results medication section. COMPLETE BLOOD Routine 03/22/2021 1:09 PM Encounter for Result s for this COUNT-W/DIFF CDT long-term current procedure are in use of high risk the results medication section. URIC ACID Routine 03/22/2021 1:09 PM Chronic tophaceous Res ults for this CDT gout procedure are i n the results section. ALT (SGPT) Routine 03/22/2021 1:09 PM Encounter for Results for this CDT long-term current procedure are in use of high risk the results medication section. documented in this encounter Results (ABNORMAL) Complete Blood Count-W/Diff (03/22/2021 1:09 PM CDT) [facility] Method Time Signature WBC 8.7 3.5 - 03/22/2021 [place] 10.5 1:18 PM CDT LABORATORY x10(9)/L RBC 3.21 (L) 3.90 - 03/22/2021 [place] 5.03 1:18 PM CDT LABORATORY x10(12)/L Hemoglobin 11.2 (L) 12.0 - 03/22/2021 [place] 15.5 g/dL 1:18 PM CDT LABORATORY HCT 34.8 (L) 34.9 - 03/22/2021 [place] 44.5 % 1:18 PM CDT LABORATORY MCV 108.4 (H) 80.0 - 03/22/2021 [place] 100.0 fL 1:18 PM CDT LABORATORY MCH 34.9 (H) 27.6 - 03/22/2021 [place] 33.3 pg 1:18 PM CDT LABORATORY MCHC 32.2 31.5 - 03/22/2021 [place] 35.2 g/dL 1:18 PM CDT LABORATORY RDW 15.6 (H) 11.9 - 03/22/2021 [place] 15.5 % 1:18 PM CDT LABORATORY Platelets 148 (L) 150 - 450 03/22/2021 [place] x10(9)/L 1:18 PM CDT LABORATORY Automated NRBC 0 <=0 /100 03/22/2021 [place] WBC 1:18 PM CDT LABORATORY Neutrophil 7.0 1.7 - 7.0 03/22/2021 [place] Absolute 10(9)/L 1:18 PM CDT LABORATORY Lymphocyte 0.9 (L) 1.0 - 4.8 03/22/2021 [place] Absolute 10(9)/L 1:18 PM CDT LABORATORY Monocytes 0.8 0.2 - 0.9 03/22/2021 [place] Absolute 10(9)/L 1:18 PM CDT LABORATORY Eosinophil 0.1 0.0 - 0.5 03/22/2021 [place] Absolute 10(9)/L 1:18 PM CDT LABORATORY Basophil 0.0 0.0 - 0.3 03/22/2021 [place] Absolute 10(9)/L 1:18 PM CDT LABORATORY Immature Gran % 0.8 (H) 0.0 - 0.5 03/22/2021 [place] % 1:18 PM CDT LABORATORY Specimen Anatomical Collection Method / Collection Time Recei christ Time (Source) Location / Volume Laterality Blood Venipuncture / 03/22/2021 1:09 03/22/2021 1:10 Unknown PM CDT PM CDT Denise Davila MD LAB_1 Performing Organization Address City/State/ZIP Code Phon e Number [facility] [address] [place] [address] URIC - Uric Acid (03/22/2021 1:09 PM CDT) athologist Signature Uric Acid 2.8 2.6 - 6.0 03/22/2021 [place] mg/dL 2:41 PM CDT LABORATORY Specimen Anatomical Collection Method / Collection Time Recei christ Time (Source) Location / Volume Laterality Blood Venipuncture / 03/22/2021 1:09 03/22/2021 1:10 Unknown PM CDT PM CDT Denise Davila MD LAB_1 Performing Organization Address [facility]/ZIP Code Phon e Number [facility] [address] [place] [address] ALT - Alanine Aminotransferase (03/22/2021 1:09 PM CDT) P athologist Signature ALT (SGPT) 17 0 - 55 U/L 03/22/2021 [place] 2:41 PM CDT LABORATORY Specimen Anatomical Collection Method / Collection Time Recei christ Time (Source) Location / Volume Laterality Blood Venipuncture / 03/22/2021 1:09 03/22/2021 1:10 Unknown PM CDT PM CDT Denise Davila MD LAB_1 Performing Organization Address [facility] Phon e Number [facility] [address] [place] [address] (ABNORMAL) CREAT - Creatinine (03/22/2021 1:09 PM CDT) Patholo gist Method Time Signature Creatinine 1.30 (H) 0.55 - 03/22/2021 [place] 1.02 mg/dL 2:41 PM CDT LABORATORY GFR, Estimated 39 (L) >60 03/22/2021 [place] mL/min/1.7 2:41 PM CDT LABORATORY 3m2 Specimen Anatomical Collection Method / Collection Time Recei christ Time (Source) Location / Volume Laterality Blood Venipuncture / 03/22/2021 1:09 03/22/2021 1:10 Unknown PM CDT PM CDT Denise Davila MD LAB_1 Performing Organization Address [facility]/ZIP Code Phon e Number [facility] [address] [place] [address] documented in this encounter Visit Diagnoses Diagnosis Encounter for long-term current use of h igh risk medication 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
--- OUTSIDE RECORDS SUMMARY | 2022-07-24 10:30 | XMS_ITS | Encounter Summary ---
:1940 Author Organization [facility] Address [address] [address] Care Team Providers Name Role Phone Non Pn, Clinician Primary Care Provider Unavailable Encounter Details Date Type Department Care Team Description 01/11/2021 Notes/Orders Neha Rheumatol uriel Davila, [address] [facility] MD Denise [place], [place] [address] [address] [phone] [facility] N [address] (Wo rk) Social History Tobacco Use Types [...] Rheumatology Kal Davila MD [address] [facility] N [id number] (Wo rk) documented as of this encounter Visit Diagnoses Not on filedocumented in this encounter Care Teams Stitching Machine Feeder Or Offbearer Relationship Specialty Start Date End Date Non Pn, ClinicianMD PCP - General 03/01/18 [place] [address] documented as of this encounter
--- OUTSIDE RECORDS SUMMARY | 2022-07-24 10:30 | XMS_ITS | Encounter Summary ---
:1940 Author Organization [facility] Address [address] [address] Care Team Providers Name Role Phone Non Pn, Clinician Primary Care Provider Unavailable Encounter Details Date Type Department Care Team Description 03/22/2021 Notes/Orders Neha Rheumatol uriel Davila, [address] [facility] MD Denise [place], [place] [address] [address] [phone] [facility] N [address] (Wo rk) Social History Tobacco Use Types [...] Rheumatology Kal Davila MD [address] [facility] N 080206 (Wo rk) documented as of this encounter Visit Diagnoses Not on filedocumented in this encounter Care Teams Flap Presser Relationship Specialty Start Date End Date Non Pn, ClinicianMD PCP - General 03/01/18 [place] [address] documented as of this encounter
--- OUTSIDE RECORDS SUMMARY | 2022-07-24 10:30 | XMS_ITS | Encounter Summary ---
:1940 Author Organization [employer] Address [address] [address] Care Team Providers Name Role Phone Non Pn, Clinician Primary Care Provider Unavailable Reason for Visit Reason Comments Follow-up Encounter Details Date Type Department Care Team Description 11/05/2020 Office Visit Marialuisa Ralph tophac eous gout (Primary Dx); Rheumatology MD Denise Hyperuricemia; [address] Psoriatic arthritis (HRC); [place] [address] Blvd Encounter for long-term current use of h igh risk medication [phone] [place], [place] [address] (Wo rk) Social History Tobacco Use Types Packs/Day Years Used Date Smoking Tobacco: Never Smokeless Tobacco: Never Alcohol Use Standard Drinks/Week Comments Yes 0 (1 standard drink = 0.6 oz pure alcoho l) Sex Assigned at Date Recorded Not on file documented as of this encounter Last Filed Vital Signs Vital Sign Reading Time Taken Comments Blood Pressure 155/55 11/05/2020 10:58 AM CDT Pulse 68 11/05/2020 10:58 AM CDT Temperature 35.6 ??C (96 ??F) 11/05/2020 10:58 AM CDT Respiratory Rate - - Oxygen Saturation - - Inhaled Oxygen Concentration - - Weight 79.8 kg (176 lb) 11/05/2020 10:58 AM CDT Height - - Body Mass Index 29.51 03/29/2018 9:30 AM CDT documented in this encounter Progress Notes Paisamerinsuestrella, Tawatchai, MD - 11/05/2020 11:00 AM CDT SUBJECTIVE: Follow-up for seronegative rheumatoid arthritis, subsequent crystal confirmed tophaceousgout. History of present illness: This is a 6 week follow-up for the patient. She currently takes methotrexate 20 mg weekly for her seronegative rheumatoid arthritis, folic acid supplement. She was subsequently found to have crystal confirmed tophaceous gout over her fingers with the baseline serum uric acid of 9.6. Allopurinol was started and she has increased the dose by 50 mg every 2 weeks to the current dose of 150 mg a day. This has been well tolerated with no significant cutaneous are non cutaneous adverse reactions. She also takes colchicine prophylaxis but can only tolerate 0.6 mg every other daydue to significant diarrhea. She has continued on baseline low-dose prednisone 2.5 mg a day. The joint inflammation for gout over the right second DIP and left third PIP joints have gone away completely. The small tophus over the right third DIP joint went away completely. The left third PIP joint swelling has also subsided. When the swelling of the left third PIP joint is improved, they are a few 1-2 mm small tophi visible. No new joint swelling. Past medical history, family and social history, current medications and adverse reactions were updated in EMR. Physical exams: BP (!) 155/55 (BP Location: Right Arm, BP Cuff Size: Large) Pulse 68 Temp (!) 96??F (35.6 ??C) (Skin) Wt 176 lb (79.8 kg) BMI 29.51 kg/m?? General appearance: An elderly female who was not in acute physical distress. Skin: No more tophus found over the right second DIP joint. 1-2 mm small visible tophi overlying left third PIP joint. Musculoskeletal exams: All 4 extremities were examined. No significant synovitis/inflammatory arthritis/dactylitis/enthesitis or effusion in any joints. Assessment and plan: 1. Crystal confirmed tophaceous gout. 2. Prior history of seronegative rheumatoid arthritis. Her recent acute gouty arthritis over the left third PIP and right second DIP joints have subsided. The tophus over the right second DIP has gone away but the left third PIP tophi have been revealed when the joint swelling has subsided. It is important to keep serum uric acid at good therapeutic leveland in her case I will keep it down below 5 but not below 3. Thankfully, she has tolerated allopurinol during the past 6 weeks. I will slowly increase the dose by 50 mg every 2 weeks until she is at 300 mg a day and she will stay at that dose. Renewed her prescription. She will continue colchicine 0.6mg every other day for at least 6 months and at least 2-3 months after serum uric acid has been at good therapeutic level and the last tophus has resolved completely, longer than 6 months if needed. Prednisone 30 mg a day for 5 days if she has a gout attack. I will continue methotrexate 20 mg weekly in the meantime. After her gout has been under control andthe serum uric acid is at therapeutic level, I will slowly taper her off methotrexate as well. Continue similar folic acid supplement. I suggest a follow-up again in about 2 months. Will obtain CBC, ALT in creatinine and serum uric acid on the same day. Total time is 30 minutes, 20 minutes counseling. documented in this encounter Plan of Treatment Upcoming Encounters Date Type Specialty Care Team Description 09/29/2022 Appointment Rheumatology Kal Davila MD [address] [facility] [address] (Wo rk) documented as of this encounter Results ALT - Alanine Aminotransferase (01/11/2021 10:23 AM CDT) P athologist Signature ALT (SGPT) 15 0 - 55 U/L 01/11/2021 [facility] 11:22 AM CDT LABORATORY Specimen Anatomical Collection Method / Collection Time Recei christ Time (Source) Location / Volume Laterality Blood Venipuncture / 01/11/2021 10:23 Unknown AM CDT 10:34 AM CDT Denise Davila MD LAB_1 Performing Organization Address City/State/ZIP Code Phon e Number [facility] [address] [place] [address] (ABNORMAL) CREAT - Creatinine (01/11/2021 10:23 AM CDT) Patholo gist Method Time Signature Creatinine 1.40 (H) 0.55 - 01/11/2021 [facility] 1.02 mg/dL 11:22 AM CDT LABORATORY GFR, Estimated 36 (L) >60 01/11/2021 [facility] mL/min/1.7 11:22 AM CDT LABORATORY 3m2 Specimen Anatomical Collection Method / Collection Time Recei christ Time (Source) Location / Volume Laterality Blood Venipuncture / 01/11/2021 10:23 1 Unknown AM CDT 10:34 AM CDT Denise Davila MD LAB_1 Performing Organization Address [facility]/ZIP Code Phon e Number [facility] [address] [place] [address] URIC - Uric Acid (01/11/2021 10:23 AM CDT) P athologist Signature Uric Acid 3.4 2.6 - 6.0 01/11/2021 [facility] mg/dL 11:22 AM CDT LABORATORY Specimen Anatomical Collection Method / Collection Time Recei christ Time (Source) Location / Volume Laterality Blood Venipuncture / 01/11/2021 10:23 1 Unknown AM CDT 10:34 AM CDT Denise Davila MD LAB_1 Performing Organization Address City/[facility]/ZIP [facility] Phon e Number [facility] [address] [place] [address] documented in this encounter Visit Diagnoses Diagnosis Chronic tophaceous gout - Primary 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
--- OUTSIDE RECORDS SUMMARY | 2022-07-24 10:31 | XMS_ITS | Encounter Summary ---
:1940 Author Organization [facility] Address [address], [place] [address] Care Team Providers Name Role Phone Liset Martinez MD Primary Care Provider Reason for Visit Reason Comments Other Encounter Details Date Type Department Care Team Description 04/23/2006 Telephone [facility] Jolynn Martinez MD Other Medicine [address] [place] [id number] [place] [address] [phone] Social History Tobacco Use Types Packs/Day Years Used Date Smoking Tobacco: Never Assessed Sex Assigned at Date Recorded Not on file documented as of this encounter Progress Notes Oscar Ryder - 04/23/2006 9:34 AM CDT Phone Note filed by Oscar Ryder RN at 11/29/10824 Author: Oscar Ryder RN Service: (none) Author Type: (none) Filed: 11/29/10824 Note Time: 04/23/06933 Status: Signed Sales Agent Pest Control Service: Rahat Conversion MESSAGE TO CARE TEAM NAME OF CALLER: Princess (patient) NAME OF CLINICIAN: Michelle MESSAGE: Patient calling to discuss MRI results and follow up. Did get results from Juanjose Aramis last week but wants to discuss with primary. CALL BACK PHONE #: [phone] home/ [phone] cell BEST TIME TO CALL BACK: any Is it OK to leave detailed message on voicemail? yes Created on 23Apr2006 9:34am by OSCAR RYDER Acknowledged by LISET MARTINEZ on 12:51pm FORMING MACHINE FEEDER documented in this encounter Plan of Treatment Upcoming Encounters Date Type Specialty Care Team Description 09/29/2022 Appointment Rheumatology Kal Davila MD [address] [facility] [address] (Wo rk) documented as of this encounter Visit Diagnoses Not on filedocumented in this encounter Care Teams Sliver Handler Relationship Specialty Start Date End Date Liset Martinez MD PCP - General 11/13/10 02/28/18 [address] [place], [place] [address] documented as of this encounter
--- OUTSIDE RECORDS SUMMARY | 2022-07-24 10:31 | XMS_ITS | Encounter Summary ---
:1940 Author Organization [facility] Address [address], [place] [address] Care Team Providers Name Role Phone Liset Martinez MD Primary Care Provider Reason for Visit Reason Comments Other Encounter Details Date Type Department Care Team Description 08/15/2005 Telephone [facility] Deisi Tavarez [address] [place] [address] Social History Tobacco Use Types Packs/Day Years Used Date Smoking Tobacco: Never Assessed Sex Assigned at Date Recorded Not on file documented as of this encounter Progress Notes Neeta Bowen - 08/15/2005 10:24 AM CST Phone Note filed by Neeta Bowen MA at 11/28/102332 Author: Neeta Bowen MA Service: (none) Author Type: (none) Filed: 11/28/102332 Note Time: 08/15/05 1024 Status: Signed Stonework Supervisor: Neeta Bowen MA (Wire Weaver Helper) Pt calling because she would like to discuss her latest Lab results. She can be reached at [phone]. Created on 15Aug2005 10:24am by NEETA BOWEN On 15Aug2005 10:58am LISET MARTINEZ wrote: see last phone note about her lab letter. se Acknowledged by LISET MARTINEZ on 10:58am On 15Aug2005 11:26am DEISI TAVAREZ wrote: Is in [place], is willing to take the medications. Or should she wait until she is home. She has never seen a doctor down there, since she will need follow up labs may be best to wait. Acknowledged by DEISI TAVAREZ on 11:26am On 15Aug2005 11:30am LISET MARTINEZ wrote: ok to wait until back in town as will need follow up labs. se Acknowledged by LISET MARTINEZ on 11:30am On 15Aug2005 12:11pm DEISI TAVAREZ wrote: Princess notified. Acknowledged by DEISI TAVAREZ on 12:11pm ONAL SALES ASSOCIATE documented in this encounter Plan of Treatment Upcoming Encounters Date Type Specialty Care Team Description 09/29/2022 Appointment Rheumatology Kal Davila MD [address] [address] (Wo rk) documented as of this encounter Visit Diagnoses Not on filedocumented in this encounter Care Teams Eligibility Services Representative Relationship Specialty Start Date End Date Liset Martinez MD PCP - General 11/13/10 02/28/18 [address] [facility], [place] [address] documented as of this encounter
--- OUTSIDE RECORDS SUMMARY | 2022-07-24 10:31 | XMS_ITS | Encounter Summary ---
:1940 Author Organization [facility] Address [address] [place] [address] Care Team Providers Name Role Phone Radha Martinez MD Primary Care Provider Encounter Details Date Type Department Care Team Description 03/20/2006 PN Conversion Only SCIENTOLOGY CONVERSION Urban Martinez MD [address] [place], [place] [id number] (Wo rk) Social History Tobacco Use Types Packs/Day Years Used Date Smoking Tobacco: Never Assessed Sex Assigned at Date Recorded Not on file documented as of this encounter Plan of Treatment Upcoming Encounters Date Type Specialty Care Team Description 09/29/2022 Appointment Rheumatology Kal Davila MD [address] [facility] N [phone] (Wo rk) documented as of this encounter Procedures Procedure Name Priority Date/Time Associated Diagnosis Comme nts ALT (SGPT) Routine 03/20/2006 9:33 AM Results f or this CDT procedure are i n the results section . AST Routine 03/20/2006 9:33 AM Results f or this CDT procedure are i n the results section . CK, TOTAL Routine 03/20/2006 9:33 AM Results f or this CDT procedure are i n the results section . documented in this encounter Results ALT (SGPT) (03/20/2006 9:33 AM CDT) [facility] Method Time Signature Alanine 32 0 - 65 [facility] CONVERSION Aminotransferase U/L Specimen (Source) Anatomical Collection Method Collection Time Re ceived Time Location / / Volume Laterality 03/20/2006 9:33 AM CDT Radha Martinez MD LAB_1 Performing Organization Address City/State/ZIP Code Phon e Number [facility] CONVERSION AST (03/20/2006 9:33 AM CDT) Patholo gist Method Time Signature Aspartate 13 0 - 45 [place] CONVERSION Aminotransferase U/L Specimen (Source) Anatomical Collection Method Collection Time Re ceived Time Location / / Volume Laterality 03/20/2006 9:33 AM CDT Radha Martinez MD LAB_1 Performing Organization Address City/[facility]/ZIP Code Phon e Number [facility] CONVERSION CK, Total (03/20/2006 9:33 AM CDT) P athologist Signature Creatine Kinase 91 0 - 225 [facility] CONVERSION U/L Specimen (Source) Anatomical Collection Method Collection Time Re ceived Time Location / / Volume Laterality 03/20/2006 9:33 AM CDT Radha Martinez MD LAB_1 Performing Organization Address City/[facility]/ZIP Code Phon e Number [facility] CONVERSION documented in this encounter Visit Diagnoses Not on filedocumented in this encounter Care Teams Electronics Assembler And Tester Relationship Specialty Start Date End Date Radha Martinez MD PCP - General 11/13/10 02/28/18 [address] [place] [address] documented as of this encounter
--- OUTSIDE RECORDS SUMMARY | 2022-07-24 10:31 | XMS_ITS | Encounter Summary ---
:1940 Author Organization [employer] Address [address] [place] [address] Care Team Providers Name Role Phone Radha Martinez MD Primary Care Provider Encounter Details Date Type Department Care Team Description 05/03/2006 PN Conversion Only [facility] [address] [place] [address] Social History Tobacco Use Types Packs/Day Years Used Date Smoking Tobacco: Never Assessed Sex Assigned at Date Recorded Not on file documented as of this encounter Plan of Treatment Upcoming Encounters Date Type Specialty Care Team Description 09/29/2022 Appointment Rheumatology Kal Davila MD [address] [facility] [address] (Wo rk) documented as of this encounter Procedures Procedure Name Priority Date/Time Associated Diagnosis Comme nts MM MAMMOGRAM Routine 05/03/2006 9:09 AM Results f or this SCREENING W CAD CDT procedure ar e in the results section. documented in this encounter Results MM Mammogram Screening W CAD (05/03/2006 9:09 AM CDT) Anatomical Region Laterality Modality Breast Bilateral Mammography Specimen (Source) Anatomical Location Collection Method / Collectio n Time Received Time / Laterality Volume Narrative 05/08/2006 1:08 PM CDT Compared to 04/21/2004. ??Both breasts are moderately dense bilaterally. The left breast shows scattered microcal cifications. ??More clustered microcalcifications are seen at the oute r aspect, which is little changed. ??But the patient will be burden d back for magnification left mammogram by the radiology department fo r further evaluation. ACR-BIRADS CATEGORY 0: ??Needs additiona l imaging evaluation. [id number]/[facility] Dictating KOK[employer] GREEN RADIOLOGIST Procedure Note Koko Holder MD - 10/13/2016 Compared to 04/21/2004. Both breasts are m oderately dense bilaterally. The left breast shows scattered microcal cifications. More clustered microcalcifications are seen at the oute r aspect, which is little changed. But the patient will be called back for magnification left mammogram by the radiology department fo r further evaluation. ACR-BIRADS CATEGORY 0: Needs additional imaging evaluation. [id number]/[facility] Dictating [employer]EN RADIOLOGIST Radha Martinez MD RAD AMBER documented in this encounter Visit Diagnoses Not on filedocumented in this encounter Care Teams Assistant Curator Relationship Specialty Start Date End Date Radha Martinez MD PCP - General 11/13/10 02/28/18 [address] [place] [address] documented as of this encounter
--- OUTSIDE RECORDS SUMMARY | 2022-07-24 10:31 | XMS_ITS | Encounter Summary ---
:1940 Author Organization [facility] Address [address] [place] [address] Care Team Providers Name Role Phone Radha Martinez MD Primary Care Provider Encounter Details Date Type Department Care Team Description 05/21/2006 PN Conversion Only [facility] Urban Martinez MD [address] [place], [place] [id number] (Wo rk) Social History Tobacco Use Types Packs/Day Years Used Date Smoking Tobacco: Never Assessed Sex Assigned at Date Recorded Not on file documented as of this encounter Plan of Treatment Upcoming Encounters Date Type Specialty Care Team Description 09/29/2022 Appointment Rheumatology Kal Davila MD [address] [facility] N [id number] (Wo rk) documented as of this encounter Procedures Procedure Name Priority Date/Time Associated Diagnosis Comme nts LIPID PANEL AND Routine 05/21/2006 11:22 AM Resul ts for this DIRECT LDL(IF CDT procedure are in NEEDED) the results section. ALT (SGPT) Routine 05/21/2006 11:22 AM Results for this CDT procedure are i n the results section. AST Routine 05/21/2006 11:22 AM Results for this CDT procedure are i n the results section. CK, TOTAL Routine 05/21/2006 11:22 AM Results for this CDT procedure are i n the results section. documented in this encounter Results ALT (SGPT) (05/21/2006 11:22 AM CDT) [facility] Method Time Signature Alanine 36 0 - 65 HP CONVERSION Aminotransferase U/L Specimen (Source) Anatomical Collection Method Collection Time Re ceived Time Location / / Volume Laterality 05/21/2006 11:22 AM CDT Radha Martinez MD LAB_1 Performing Organization Address City/State/ZIP Code Phon e Number HP CONVERSION AST (05/21/2006 11:22 AM CDT) [facility] Method Time Signature Aspartate 15 0 - 45 HP CONVERSION Aminotransferase U/L Specimen (Source) Anatomical Collection Method Collection Time Re ceived Time Location / / Volume Laterality 05/21/2006 11:22 AM CDT Radha Martinez MD LAB_1 Performing Organization Address City/[facility]/ZIP Code Phon e Number HP CONVERSION CK, Total (05/21/2006 11:22 AM CDT) athologist Signature Creatine Kinase 119 0 - 225 HP CONVERSION U/L Specimen (Source) Anatomical Collection Method Collection Time Re ceived Time Location / / Volume Laterality 05/21/2006 11:22 AM CDT Radha Martinez MD LAB_1 Performing Organization Address City/[facility]/ZIP Code Phon e Number HP CONVERSION (ABNORMAL) Lipid Panel and Direct LDL(If Needed) (05/21/2006 11:22 AM CDT) [facility] Method Time Signature Cholesterol/HDL 3.7 No normal HP CONVERSION Ratio Screen range Cholesterol 174 <200 mg/dL HP CONVERSION HDL Cholesterol 47 40 - 60 HP CONVERSION mg/dL Triglycerides 206 (H) 0 - 149 HP CONVERSION mg/dL LDL Calculated 86 0 - 130 HP CONVERSION mg/dL Comment: Specimen (Source) Anatomical Collection Method Collection Time Re ceived Time Location / / Volume Laterality 05/21/2006 11:22 AM CDT Radha Martinez MD LAB_1 Performing Organization Address City/[facility] Code Phon e Number HP CONVERSION documented in this encounter Visit Diagnoses Not on filedocumented in this encounter Care Teams Driver Helper Relationship Specialty Start Date End Date Radha Martinez MD PCP - General 11/13/10 02/28/18 [address] [facility] [place] [address] documented as of this encounter
--- OUTSIDE RECORDS SUMMARY | 2022-07-24 10:31 | XMS_ITS | Encounter Summary ---
:1940 Author Organization [employer] Address [address] [place] [address] Care Team Providers Name Role Phone Radha Martinez MD Primary Care Provider Encounter Details Date Type Department Care Team Description 08/10/2005 PN Conversion Only [facility] CONVERSION Urban Martinez MD [address] [place] [address] (Wo rk) Social History Tobacco Use Types Packs/Day Years Used Date Smoking Tobacco: Never Assessed Sex Assigned at Date Recorded Not on file documented as of this encounter Plan of Treatment Upcoming Encounters Date Type Specialty Care Team Description 09/29/2022 Appointment Rheumatology Kal Davila MD [address] [facility] [id number] (Wo rk) documented as of this encounter Procedures Procedure Name Priority Date/Time Associated Diagnosis Comme nts LIPID PANEL AND Routine 08/10/2005 10:27 AM Resul ts for this DIRECT LDL(IF LUBRICATING SPECIALIST procedure are in NEEDED) the results section. documented in this encounter Results (ABNORMAL) Lipid Panel and Direct LDL(If Needed) (08/10/2005 10:27 AM LUBRICATING SPECIALIST) [facility] Method Time Signature Cholesterol/HDL 5.3 No normal HP CONVERSION Ratio Screen range Cholesterol 251 (H) <200 mg/dL HP CONVERSION HDL Cholesterol 47 40 - 60 HP CONVERSION mg/dL Triglycerides 277 (H) 0 - 149 HP CONVERSION mg/dL LDL Calculated 149 (H) 0 - 130 HP CONVERSION mg/dL Comment: Due to abbreviated fast (<10 hours), tri glyceride may be falsely elevated causing factitiously de creased LDL. Specimen (Source) Anatomical Collection Method Collection Time Re ceived Time Location / / Volume Laterality 08/10/2005 10:27 AM LUBRICATING SPECIALIST Radha Martinez MD LAB_1 Performing Organization Address City/State/ZIP Code Phon e Number HP CONVERSION documented in this encounter Visit Diagnoses Not on filedocumented in this encounter Care Teams Composition Roofer Relationship Specialty Start Date End Date Radha Martinez MD PCP - General 11/13/10 02/28/18 [address] [place] [address] documented as of this encounter
--- OUTSIDE RECORDS SUMMARY | 2022-07-24 10:31 | XMS_ITS | Encounter Summary ---
:1940 Author Organization [employer] Address [address] [place] [address] Care Team Providers Name Role Phone Radha Martinez MD Primary Care Provider Reason for Visit Reason Comments Other Encounter Details Date Type Department Care Team Description 08/11/2005 Telephone [facility] [place], Message Other [address] [place] [address] Social History Tobacco Use Types Packs/Day Years Used Date Smoking Tobacco: Never Assessed Sex Assigned at Date Recorded Not on file documented as of this encounter Progress Notes Lat49, Message - 08/11/2005 10:18 AM CST Phone Note filed by [employer] at 11/28/10 6625 Author: [employer] Service: (none) Author Type: (none) Filed: 11/28/10 6885 Note Time: 08/11/05 1018 Status: Signed Child Nurse: [employer] Lab letter:Cholestrol is the same. It is still too high. If you are willing to start on cholesterol medication, please see me in clinic. Created on 11Aug2005 10:18am by MCKAYLA PEÑA PREVENTION SPECIALIST documented in this encounter Plan of Treatment Upcoming Encounters Date Type Specialty Care Team Description 09/29/2022 Appointment Rheumatology Kal Davila MD [address] [facility] N [address] (Wo rk) documented as of this encounter Visit Diagnoses Not on filedocumented in this encounter Care Teams Dealer Accounts Investigator Relationship Specialty Start Date End Date Radha Martinez MD PCP - General 11/13/10 02/28/18 [address] [place] [address] documented as of this encounter
--- OUTSIDE RECORDS SUMMARY | 2022-07-24 10:31 | XMS_ITS | Encounter Summary ---
:1940 Author Organization [facility] Address [address] [address] Care Team Providers Name Role Phone Liset Martinez MD Primary Care Provider Encounter Details Date Type Department Care Team Description 02/19/2006 Office Visit [facility] Jolynn Martinez MD [id number] [place] [address] [phone] Social History Tobacco Use Types Packs/Day Years Used Date Smoking Tobacco: Never Assessed Sex Assigned at Date Recorded Not on file documented as of this encounter Last Filed Vital Signs Vital Sign Reading Time Taken Comments Blood Pressure 104/64 02/19/2006 9:08 AM CDT Pulse 72 02/19/2006 9:08 AM CDT Temperature - - Respiratory Rate - - Oxygen Saturation - - Inhaled Oxygen Concentration - - Weight 93 kg (204 lb 15.7 oz) 02/19/2006 9:08 AM CDT C: 93.0kg Height - - Body Mass Index 33.59 02/22/2005 9:37 AM CDT documented in this encounter Progress Notes Liset Martinez MD - 02/19/2006 12:01 AM CDT Progress Notes signed by Liset Martinez MD at 03/07/06 1341 Author: Liset Martinez MD Service: (none) Author Type: Physician Filed: 12/02/10 1306 Note Time: 02/19/06 0001 Status: Signed Automobile Upholsterer Apprentice: Liset Martinez MD (Physician) NAME: NINA SAMUELS MR: [id number] ACCT: [id number] VISIT: [id number] DICTATING CLINICIAN: LISET MARTINEZ MD JOB: [id number] CLINIC PROGRESS NOTE DATE OF VISIT: 02/19/2006 SUBJECTIVE: : 1940. Wflik-uash-bedo-old, followup. History of hyperlipidemia, hypertension, hypothyroidism. She is taking lisinopril 40 mg daily. She checked her blood pressure once, it was 122 systolic. She has been exercising, doing a lot of golfing. She has lost 5 lb. She does feel some general fatigue at times. Has history of hypothyroidism on Levothroid 0.112 mg daily. She is also on the Lasix, low dose Premarin and simvastatin. She notes no muscle weakness. She has had some mild arthralgias at the knees and hips, relived by one [id number] Aleve or Tylenol. PAST MEDICAL HISTORY: See the updated list in today's [facility] patient health profile. MEDICATIONS: Furosemide 20 mg p.o. daily, Levothroid 0.112 mg daily, Premarin 0.3 mg daily, lisinopril 40 mg daily, simvastatin 10 mg every p.m. Tylenol p.r.n. HABITS: Nonsmoker. OBJECTIVE: VS: BP: ??104/64??. P: 72. Wt: 205. GENERAL: She is an overweight female in no distress. EYES: There is no icterus or injection. ENT: Oropharynx appears clear. NECK: No carotid bruits, thyromegaly, thyroid nodules. LUNGS: Clear posteriorly. CARDIOVASCULAR: Regular rate and rhythm without gallops, murmurs, or rubs. 2/4 radial, artery pulses. No lower extremity edema. ABDOMEN: Bowel sounds present, abdomen soft. ASSESSMENT: 1. Hyperlipidemia. 2. Hypertension. 3. Hypothyroidism. 4. Fatigue. PLAN: 1. Her followup cholesterol earlier this year was not at goal. She was started on simvastatin 10 mg p.o. every p.m. Discussed possible side effects including but not limited to liver disease, muscle weakness, or damage. We will check in 10 days, ALT, AST, CK level. Today we will check the cholesterol to see exactly where it is at along with an ALT, AST, CK level baseline. 2. Check sodium, potassium, BUN and creatinine and urinalysis. Continue on furosemide and lisinopril at current dose. 3. Check TSH, increase dose if able. 4. For fatigue we will check a CBC, A1c, and glucose. 5. She will have a cholesterol fractionation, ALT, AST, CK, level in 3 months, adjust dose if needed. 6. Complete screening mammogram. 7. Received pneumonia vaccine today. SME:[id number] C: 02/20/06 11:57 DOCUMENT: [id number] documented in this encounter Plan of Treatment Upcoming Encounters Date Type Specialty Care Team Description 09/29/2022 Appointment Rheumatology Kal Davila MD [address] [facility] [id number] (Wo rk) documented as of this encounter Visit Diagnoses Not on filedocumented in this encounter Care Teams Grip Relationship Specialty Start Date End Date Liset Martinez MD PCP - General 11/13/10 02/28/18 [address] [place] [address] documented as of this encounter
--- OUTSIDE RECORDS SUMMARY | 2022-07-24 10:31 | XMS_ITS | Encounter Summary ---
:1940 Author Organization [facility] Address [address], [place] [address] Care Team Providers Name Role Phone Radha Martinez MD Primary Care Provider Encounter Details Date Type Department Care Team Description 05/07/2006 Office Visit [place] [facility] [place] [address] [address] [place] [address] [place] [address] [phone] (Wo rk) Social History Tobacco Use Types Packs/Day Years Used Date Smoking Tobacco: Never Assessed Sex Assigned at Date Recorded Not on file documented as of this encounter Plan of Treatment Upcoming Encounters Date Type Specialty Care Team Description 09/29/2022 Appointment Rheumatology Kal Davila MD [address] [facility] [address] [address] (Wo rk) documented as of this encounter Visit Diagnoses Not on filedocumented in this encounter Care Teams Light Adjuster Relationship Specialty Start Date End Date Radha Martinez MD PCP - General 11/13/10 02/28/18 [address] [place] [address] documented as of this encounter
--- OUTSIDE RECORDS SUMMARY | 2022-07-24 10:31 | XMS_ITS | Encounter Summary ---
:1940 Author Organization [facility] Address [address], [place] [address] Care Team Providers Name Role Phone Radha Martinez MD Primary Care Provider Encounter Details Date Type Department Care Team Description 05/21/2006 Office Visit [place] [facility] [place] [address] [address] [place] [address] [place] [address] [phone] (Wo rk) Social History Tobacco Use Types Packs/Day Years Used Date Smoking Tobacco: Never Assessed Sex Assigned at Date Recorded Not on file documented as of this encounter Plan of Treatment Upcoming Encounters Date Type Specialty Care Team Description 09/29/2022 Appointment Rheumatology Kal Davila MD [address] [facility] N [address] (Wo rk) documented as of this encounter Visit Diagnoses Not on filedocumented in this encounter Care Teams Attorney General Relationship Specialty Start Date End Date Radha Martinez MD PCP - General 11/13/10 02/28/18 [address] [place] [address] documented as of this encounter
--- OUTSIDE RECORDS SUMMARY | 2022-07-24 10:31 | XMS_ITS | Encounter Summary ---
:1940 Author Organization [facility] Address [address] [address] Care Team Providers Name Role Phone Radha Martinez MD Primary Care Provider Encounter Details Date Type Department Care Team Description 05/03/2006 Office Visit [place] [facility] [place] [address] [address] [place] [address] [place] [address] [phone] (Wo rk) Social History Tobacco Use Types Packs/Day Years Used Date Smoking Tobacco: Never Assessed Sex Assigned at Date Recorded Not on file documented as of this encounter Plan of Treatment Upcoming Encounters Date Type Specialty Care Team Description 09/29/2022 Appointment Rheumatology Kal Davila MD [address] [facility] N [address] (Wo rk) documented as of this encounter Visit Diagnoses Not on filedocumented in this encounter Care Teams Personal Lines Advisor Relationship Specialty Start Date End Date Radha Martinez MD PCP - General 11/13/10 02/28/18 [address] [place] [address] documented as of this encounter
--- OUTSIDE RECORDS SUMMARY | 2022-07-24 10:31 | XMS_ITS | Encounter Summary ---
:1940 Author Organization [facility] Address [address] [address] Care Team Providers Name Role Phone Radha Martinez MD Primary Care Provider Encounter Details Date Type Department Care Team Description 05/21/2006 Nursing Visit [facility] [place] [address] [place] [address] [place] [phone] Social History Tobacco Use Types Packs/Day Years Used Date Smoking Tobacco: Never Assessed Sex Assigned at Date Recorded Not on file documented as of this encounter Plan of Treatment Upcoming Encounters Date Type Specialty Care Team Description 09/29/2022 Appointment Rheumatology Kal Davila MD [address] [facility] [address] (Wo rk) documented as of this encounter Visit Diagnoses Not on filedocumented in this encounter Care Teams Communication Specialist Relationship Specialty Start Date End Date Radha Martinez MD PCP - General 11/13/10 02/28/18 [address] [place], [place] [id number] documented as of this encounter
--- OUTSIDE RECORDS SUMMARY | 2022-07-24 10:31 | XMS_ITS | Encounter Summary ---
:1940 Author Organization [employer] Address [address] [place] [address] Care Team Providers Name Role Phone Unavailable Primary Care Provider Unavailable Encounter Details Date Type Department Care Team Description 04/10/2006 Hospital Encounter JUDAISM CONVERSION Urban Martinez MD [address] [place] [address] (Wo rk) Social History Tobacco Use Types Packs/Day Years Used Date Smoking Tobacco: Never Assessed Sex Assigned at Date Recorded Not on file documented as of this encounter Medications at Time of Discharge Medication Sig Dispensed Refills Start Date End Date lisinopril (AKA Take 1 tablet by mouth 90 3 02/20/20 06 ZESTRIL) 40 MG tablet daily (every 24 hours). LW Addl Instr:Indicated for: High Blood Pressure Acetaminophen 650 MG Take 1-2 tablets by 50 12 200403/29/2018 mouth every 8 hours as needed. LW Addl Instr:Maximum of 6 tablets/24 hours. estrogens, conjugated, Take 1 tablet by mouth 90 3 0 02/19/2006 03/29/2018 (AKA PREMARIN) 0.3 MG daily (every 24 hours). tablet LW Addl Instr:INDICATED FOR MENOPAUSAL VASOMOTOR SYMPTOMS. furosemide (AKA LASIX) Take 1 tablet by mouth 90 3 0 02/19/2006 03/29/2018 20 MG tablet daily (every 24 hours). levothyroxine (AKA Take 1 tablet by mouth 90 3 02/1906/28/2018 SYNTHROID) 112 MCG daily (every 24 hours). tablet LW Addl Instr:Indicated for: Hypothyroidism naproxen (NAPROSYN) Take 1 tablet by mouth 45 0 02/1103/29/2018 500 MG tablet 2 times daily. LW Addl Instr:Indicated for: Arthritis simvastatin (AKA Take 1 tablet by mouth 90 3 006 03/29/2018 ZOCOR) 10 MG tablet every evening. LW Addl Instr:Indicated for: High Cholesterol UNKNOWN MEDICATION Indications: PN: 0 04/04/2006 03/29/2018 documented as of this encounter Plan of Treatment Upcoming Encounters Date Type Specialty Care Team Description 09/29/2022 Appointment Rheumatology Kal Davila MD [address] [facility] [place] [address] (Wo rk) documented as of this encounter Procedures Procedure Name Priority Date/Time Associated Diagnosis Comme nts MR HIP LT WO IV Routine 04/10/2006 8:56 PM Result s for this CONT CDT procedure are i n the results section. MR LUMBAR SPINE WO Routine 04/10/2006 8:55 PM Res ults for this IV CONT CDT procedure are i n the results section. documented in this encounter Results MR Hip Lt WO IV Cont (04/10/2006 8:56 PM CDT) Anatomical Region Laterality Modality Lower Extremity, Skeletal, Pelvis, Hip, Thigh Left Other Specimen (Source) Anatomical Location Collection Method / Collectio n Time Received Time / Laterality Volume Impressions 04/10/2006 8:56 PM CDT : ??Appearance of the left hip essentially negative. ??Mild smooth cartilage thinning without focal defect. [facility]/[id number] Dictating ANT WINSTON RADIOLOGIST Narrative 04/10/2006 8:56 PM CDT There is no evidence of occult left hip fracture, bone contusion, AVN, or other intrinsic abnormality of b one of the left hip joint region. ??No evidence of hip joint effus ion or synovial thickening. The articular cartilage demonstrates mil d diffuse thinning without focal defect. ??Pelvic girdle musculatur e, groin region, and surrounding soft tissues demonstrate nor mal signal and appearance. Within the true pelvis there is sigmoid diverticulosis, there appears to have been a hysterectomy, and there a re multiple cystic structures in the area of the vaginal cuff ranging in size from 5 to 19 mm. Scans, which include portions of the rig ht hip and surrounding soft tissues, appear unremarkable. Procedure Note Ant Larson - 10/13/2016Formattin g of this note might be different from the original. There is no evidence of occult left hip fracture, bone contusion, AVN, or other intrinsic abnormality of b one of the left hip joint region. No evidence of hip joint effusio n or synovial thickening. The articular cartilage demonstrates mil d diffuse thinning without focal defect. Pelvic girdle musculature, groin region, and surrounding soft tissues demonstrate nor mal signal and appearance. Within the true pelvis there is sigmoid diverticulosis, there appears to have been a hysterectomy, and there a re multiple cystic structures in the area of the vaginal cuff ranging in size from 5 to 19 mm. Scans, which include portions of the rig ht hip and surrounding soft tissues, appear unremarkable. IMPRESSION : Appearance of the left hip essentially negative. Mild smooth cartilage thinning without focal defect. [facility]/[id number] Dictating ANT [facility] RADIOLOGIST Radha Martinez MD RAD MRI MR Lumbar Spine WO IV Cont (04/10/2006 8:55 PM CDT) Anatomical Region Laterality Modality Spine, L-Spine, Skeletal Other Specimen (Source) Anatomical Location Collection Method / Collectio n Time Received Time / Laterality Volume Impressions 04/10/2006 8:55 PM CDT : ? 1. ?? Bilateral ?L5 spondy lolysis, spondylolisthesis, degenerative disc disease, and disc ?bulging resulting in foraminal stenosis and deformity of both exiting L5 nerve ?roots left greater than right. ? 2. ?? Small ?right paramed brendon L4-5 focal disc protrusion at and below the disc level ?abuts t he traversing right L5 nerve root. ? 3. ?? Eccentric ?left L2-3 and L3-4 foraminal disc bulging results in foraminal narrowing, ? more so at L3-4, although no definite compression of exiting L2 and L 3 nerve ?roots. ? 4. ?? Mild ?to moderate de generative disc changes, moderate lower lumbar facet degenerative ? changes. [facility]/[id number] Dictating ANT WINSTON RADIOLOGIST Narrative 04/10/2006 8:55 PM CDT The lumbar vertebral marrow signal and height is normal. ??There is 6 mm anterolisthesis of L5 on S1 as a resu lt of bilateral L5 spondylolysis. ??Alignment otherwise nor mal. ??Mild to moderate degenerative disc space narrowing is pre sent at all levels of the lumbar spine and there are no moderate l ower lumbar facet degenerative changes. ??The conus medull michael and cauda equina structures appear normal. L1-2: ??No evidence of focal disc hernia tion, central, or foraminal stenosis. L2-3: ??Mild diffuse disc bulging withou t central or foraminal stenosis. ??Disc bulging eccentrically m ore prominent on the left. L3-4: ??Mild to moderate disc bulging an d mild to moderate facet degenerative changes are present. ??Left foraminal disc bulging eccentrically more prominent and resulti ng in moderate left foraminal stenosis. ??Facet arthropathy deforms th e thecal sac posterolaterally on the left. ??Mild right foraminal sten osis. L4-5: ??Mild disc bulging and moderately advanced facet arthropathy are present resulting in mild right and mild to moderate left foraminal stenosis. ??A right paramedian focal disc herniation deforms the thecal sac and abuts the traversing right L5 nerve root. ??The disc herniation extends 10 mm below the disc level. L5-S1: ??Moderately advanced disc space narrowing, bilateral L5 spondylolysis and spondylolisthesis as d escribed, and diffuse disc bulging result in moderate right and mod erately severe left foraminal stenosis. ??Disc bulging abuts and defor ms both exiting L5 nerve roots left greater than right. Procedure Note Ant Larson - 10/13/2016Formattin g of this note might be different from the original. The lumbar vertebral marrow signal and h eight is normal. There is 6 mm anterolisthesis of L5 on S1 as a resu lt of bilateral L5 spondylolysis. Alignment otherwise matheus l. Mild to moderate degenerative disc space narrowing is pre sent at all levels of the lumbar spine and there are no moderate l ower lumbar facet degenerative changes. The conus medullar is and cauda equina structures appear normal. L1-2: No evidence of focal disc herniati on, central, or foraminal stenosis. L2-3: Mild diffuse disc bulging without central or foraminal stenosis. Disc bulging eccentrically mor e prominent on the left. L3-4: Mild to moderate disc bulging and mild to moderate facet degenerative changes are present. Left f oraminal disc bulging eccentrically more prominent and resulti ng in moderate left foraminal stenosis. Facet arthropathy deforms the thecal sac posterolaterally on the left. Mild right foraminal stenos is. L4-5: Mild disc bulging and moderately a dvanced facet arthropathy are present resulting in mild right and mild to moderate left foraminal stenosis. A right paramedian f ocal disc herniation deforms the thecal sac and abuts the traversing right L5 nerve root. The disc herniation extends 10 mm below the disc level. L5-S1: Moderately advanced disc space na rrowing, bilateral L5 spondylolysis and spondylolisthesis as d escribed, and diffuse disc bulging result in moderate right and mod erately severe left foraminal stenosis. Disc bulging abuts and deforms both exiting L5 nerve roots left greater than right. IMPRESSION : 1. Bilateral L5 spondylolysis, spondylo listhesis, degenerative disc disease, and disc bulg ing resulting in foraminal stenosis and deformity of both exiting L5 nerve roots left greater than right. 2. Small right paramedian L4-[address] focal di sc protrusion at and below the disc level abuts the trave rsing right L5 nerve root. 3. Eccentric left L2-3 and L3-4 foramin al disc bulging results in foraminal narrowing, more so at L3-4, although no definite compression of exiting L2 and L 3 nerve roots. 4. Mild to moderate degenerative disc c hanges, moderate lower lumbar facet degenerative changes. [facility]/[id number] Dictating ANT [facility] RADIOLOGIST Radha Martinez MD RAD MRI documented in this encounter Visit Diagnoses Not on filedocumented in this encounter
--- OUTSIDE RECORDS SUMMARY | 2022-07-24 10:31 | XMS_ITS | Encounter Summary ---
:1940 Author Organization [employer] Address [address] [address] Care Team Providers Name Role Phone Non Pn, Clinician Primary Care Provider Unavailable Reason for Visit Reason Comments Follow-up Encounter Details Date Type Department Care Team Description 06/28/2018 Office Visit Neha Giovanni, Osteoarthritis of multiple joints, unspecified osteoarthritis type (Primary Dx); Rheumatology MD Denise Psoriasis [address] [facility] [address] [place] [address] [facility] [phone] [place], [place] [id number] Social History Tobacco Use Types Packs/Day Years Used Date Smoking Tobacco: Never Smokeless Tobacco: Never Sex Assigned at Date Recorded Not on file documented as of this encounter Last Filed Vital Signs Vital Sign Reading Time Taken Comments Blood Pressure 163/56 06/28/2018 10:22 AM AMMUNITION SPECIALIST Pulse 67 06/28/2018 10:22 AM AMMUNITION SPECIALIST Temperature - - Respiratory Rate - - Oxygen Saturation - - Inhaled Oxygen Concentration - - Weight 88 kg (194 lb) 06/28/2018 10:22 AM AMMUNITION SPECIALIST Height - - Body Mass Index 32.53 03/29/2018 9:30 AM CDT documented in this encounter Progress Notes Denise Davila MD - 06/28/2018 10:30 AM CST SUBJECTIVE: Follow-up for osteoarthritis, palmar psoriasis. History of present illness: This is a three-month follow-up for the patient. At the last clinic visit, she was off sulfasalazine for one month and off Remicade for about 7 months. She was told to have rheumatoid arthritis. However, I did not see any clinical findings to suggest rheumatoid arthritis. She was found to have clinical osteoarthritis with Heberden's node some Meredith's node and faint rashes over the hyperthenar eminence as suggesting psoriasis. I have decided not to put her back on a disease modifying agent and instead to follow her clinically. She is doing the same. She still does not have recurrent swollen joints anywhere. Her psoriasis is very faint and limited over her hypothenar eminences which are not disturbing to her. She has been updated with annual influenza vaccination. Past medical history, family and social history, current medications and adverse reactions were updated in EMR. Physical exams: BP (!) 163/56 (BP Location: Left Arm, BP Cuff Size: Adult Large) Pulse 67 Wt 194lb (88 kg) BMI 32.53 kg/m?? General appearance: An elderly female who was not in acute physical distress. Musculoskeletal exams: All 4 extremities were examined. No significant synovitis/inflammatory arthritis/dactylitis or effusion in any joints. Osteoarthritic changes over her finger knuckles. Status post bilateral knee arthroplasties and left foot surgeries. Similar osteoarthritic changes over her footand toe joints. Assessment and plan: 1. Generalized osteoarthritis. 2. 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 Pain is rated as 5. RAPID 3 score is 8.7. I told her that I still do not see a clinical evidence of rheumatoid arthritis and psoriatic arthritis despite the presence of faint psoriasis over her palms. She has been off sulfasalazine for about 4months and almost here with Remicade. And therefore, I will continue to observe her clinically. Counseled the patient again about physical findings of psoriatic arthritis or rheumatoid disease. I suggest a clinical follow up again in 6 months or earlier anytime if there is the presence of a swollen joint. Total time is 15 minutes, 10 minutes counseling. NITION SPECIALIST documented in this encounter Plan of Treatment Upcoming Encounters Date Type Specialty Care Team Description 09/29/2022 Appointment Rheumatology Kal Davila MD [address] [place] [address] (Wo rk) documented as of this encounter Visit Diagnoses Diagnosis Osteoarthritis of multiple joints, unspe cified osteoarthritis type - Primary Psoriasis Other psoriasis documented in this encounter Care Teams Transit Manager Relationship Specialty Start Date End Date Non Pn, Clinician, PCP - General 03/01/18 [place] [address] documented as of this encounter
--- OUTSIDE RECORDS SUMMARY | 2022-07-24 10:31 | XMS_ITS | Encounter Summary ---
:1940 Author Organization [facility] Address [address] [address] Care Team Providers Name Role Phone Liset Martinez MD Primary Care Provider Encounter Details Date Type Department Care Team Description 04/04/2006 Office Visit [facility] Jolynn Martinez MD [id number] [place] [address] [phone] Social History Tobacco Use Types Packs/Day Years Used Date Smoking Tobacco: Never Assessed Sex Assigned at Date Recorded Not on file documented as of this encounter Last Filed Vital Signs Vital Sign Reading Time Taken Comments Blood Pressure 112/70 04/04/2006 2:13 PM CDT Pulse 72 04/04/2006 2:13 PM CDT Temperature - - Respiratory Rate - - Oxygen Saturation - - Inhaled Oxygen Concentration - - Weight - - Height - - Body Mass Index - - documented in this encounter Progress Notes Liset Martinez MD - 04/04/2006 12:01 AM CDT Progress Notes signed by Liset Martinez MD at 05/01/06 [id number] Author: Liset Martinez MD Service: (none) Author Type: Physician Filed: 12/02/10 1357 Note Time: 04/04/06 0001 Status: Signed Cell Inspector: Liset Martinez MD (Physician) NAME: NINA SAMUELS MR: [id number] ACCT: [id number] VISIT: [id number] DICTATING CLINICIAN: LISET MARTINEZ MD JOB: [id number] LOC: 506 CLINIC PROGRESS NOTE DATE OF VISIT: 04/04/2006 SUBJECTIVE: : 1940. HISTORY: A 66-year-old female with ongoing low back pain and hip pain. This did not resolve after our last visit. She tried the prednisone for 2 days, it did not help at all. The Vicodin made her feel slightly foggy and so she discontinued. She was taking Naprosyn 1 b.i.d. and now most recently 1 daily with food. That did seem to help. Her pain has improved, but still feels an aching and nagging pain in the low back, that radiates toward the left hip and groin. Now it seems to radiate more toward the right hip and groin slightly also. If she sits too long it hurts. If she stands too long it hurts. There is no numbness, tingling, or weakness. The pain does not radiate down the legs. There can be some pain between the left leg at the hip. No change in bowel or bladder. She has had the knee replacements and DJD. She was told she did have some arthritis at her right hip. Her x-ray showed degenerative changes in the pubic synthesis and the lumbosacral facette joints of the low spine. PAST MEDICAL HISTORY: Reviewed, see updated list in today's [facility] patient health profile. ADR/ALLERGIES: REVIEWED, SEE UPDATED LIST IN TODAY'S [facility] PATIENT HEALTH PROFILE. OBJECTIVE: VS: BP: 112/70. P: 72. R: 16. GENERAL: She is a very, healthy-appearing, older female in no distress. BACK: There is no localizable tenderness to the lumbosacral spine, sacroiliac joints. No paraspinal muscle spasm. Negative straight-leg raise bilaterally. NEUROLOGICAL: Absent reflexes at the knees and ankles bilaterally. There is some decreased strength at the left hip flexor, this is limited by discomfort. The right hip shows pain with flexion past 90 degrees. Strength is otherwise preserved throughout the lower extremities bilaterally. The right hip shows normal range of motion and Leonard maneuver. ASSESSMENT: 1. Left hip pain. 2. Low back pain. 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 PLAN: We are going to proceed with an MRI of the left hip and an MRI of the lumbosacral spine. She will continue the Naprosyn for pain and recommend consultation once MRI results obtained. SME:[id number] C: 04/05/06 09:09 DOCUMENT: [id number] documented in this encounter Plan of Treatment Upcoming Encounters Date Type Specialty Care Team Description 09/29/2022 Appointment Rheumatology Kal Davila MD [address] [facility] [place] [phone] (Wo rk) documented as of this encounter Visit Diagnoses Not on filedocumented in this encounter Care Teams Senior Principal Architect Relationship Specialty Start Date End Date Liset Martinez MD PCP - General 11/13/10 02/28/18 [address] [place] [address] documented as of this encounter
--- OUTSIDE RECORDS SUMMARY | 2022-07-24 10:31 | XMS_ITS | Encounter Summary ---
:1940 Author Organization [employer] Address [address] [place] [address] Care Team Providers Name Role Phone Unavailable Primary Care Provider Unavailable Encounter Details Date Type Department Care Team Description 04/13/2006 Hospital Encounter JEWISH CONVERSION Social History Tobacco Use Types Packs/Day Years [...] Take 1 tablet by mouth 45 0 07/11/200503/29/2018 500 MG tablet 2 times daily. LW Addl Instr:Indicated for: Arthritis simvastatin (AKA Take 1 tablet by mouth 90 3 006 03/29/2018 ZOCOR) 10 MG tablet every evening. LW Addl Instr:Indicated for: High Cholesterol UNKNOWN MEDICATION Indications: PN: 0 04/04/2006 03/29/2018 documented as of this encounter Plan of Treatment Upcoming Encounters Date Type Specialty Care Team Description 09/29/2022 Appointment Rheumatology Kal Davila MD [address] [facility] [place] [address] (Wo rk) documented as of this encounter Visit Diagnoses Not on filedocumented in this encounter
--- OUTSIDE RECORDS SUMMARY | 2022-07-24 10:31 | XMS_ITS | Encounter Summary ---
:1940 Author Organization [employer] Address [address] [place] [address] Care Team Providers Name Role Phone Non Pn, Clinician Primary Care Provider Unavailable Reason for Referral Therapies (Routine) - Closed Specialty Diagnoses / Procedures Referred By Contact Refer red To Contact Diagnoses Chronic left shoulder pain Rotator cuff tendonitis, left Denise Davila MD [address] [place], [place] [address] Referral ID Status Reason Start Date Expiration Date Visits Requ ested Visits Authorized [id number] Closed 03/29/2018 05/28/2018 1 1 Scheduling Instructions If scheduling assistance is needed, carmencita morales inquire with the medical office staff upon exiting your appointment or contact the ordering clinic for recommended locations. This recommended service/s may not be co [place] by your insurance coverage. To find out your specific benefit coverage, please c all the number on your insurance card. Procedure/Equipment (Routine) - Incomplete Specialty Diagnoses / Procedures Referred By Contact Refer red To Contact Diagnoses Osteoarthritis of multiple joints, unspecified osteoarthritis type Psoriasis Chronic left shoulder pain Denise Davila, Ellen XR Shoulder Lt 2+ Views MD Latisha Hendrickson [place], [place] [address] Referral ID Status Reason Start Date Expiration Date Visits V isits Requested Authorized [id number] Incomplete 03/29/2018 06/28/2019 1 1 Reason for Visit Reason Comments CONSULT Encounter Details Date Type Department Care Team Description 03/29/2018 Initial Consult Neha Elizaldejose Osteoarthri tis of multiple joints, unspecified osteoarthritis type (Primary Dx); Rheumatology MD Denise Psoriasis; [address] Chronic left shoulder pain; [address] Rotator cuff tendonitis, [place] [address] [phone] Social History Tobacco Use Types Packs/Day Years Used Date Smoking Tobacco: Never Sex Assigned at Date Recorded Not on file documented as of this encounter Last Filed Vital Signs Vital Sign Reading Time Taken Comments Blood Pressure 149/63 03/29/2018 9:30 AM CDT Pulse 68 03/29/2018 9:30 AM CDT Temperature - - Respiratory Rate - - Oxygen Saturation - - Inhaled Oxygen Concentration - - Weight 84.4 kg (186 lb) 03/29/2018 9:30 AM CDT Height 164.5 cm (5' 4.75) 03/29/2018 9:30 AM CDT Body Mass Index 31.19 03/29/2018 9:30 AM CDT documented in this encounter Patient Instructions Patient InstructionsDenise Davila MD - 03/29/2018 8:30 AM CDT Topical heating/icing, Asper cream, 2-4% lidocaine gel. Tylenol up to 3000 mg a day: 325-650 mg each time. Ibuprofen 200-400 mg up to 3 times a day when stomach is not empty. documented in this encounter Progress Notes Denise Davila MD - 03/29/2018 8:30 AM CDT Subjective: Self referral for an evaluation of joint pain. History of present illness: A 78-year-old female who came in here for an evaluation of joint pain. The patient is known to have osteoarthritis. She underwent right knee arthroplasty in 1994 and left knee arthroplasty 2001. Approximately 3 years ago, she developed a swelling, redness and inflammation over the right 4th DIP joint. She went to see her primary care provider who subsequently referred the patient to see Dr. Chandrakant Oliveira at [facility]. These outside records were not available for me to review. According to her, blood tests were performed and the patient was told to have rheumatoid arthritis. She was started on sulfasalazine 1 g twice ad day. She had been on sulfasalazine for approximately ayear and Remicade was added. According to her, Remicade and sulfasalazine did not seem to help for her joint symptoms. And therefore, Remicade dose was subsequently increased to 10 mg/kg every 4 weeks. The last dose of Remicade was August 2017. The patient developed an open wound on the left plantar foot over the left 2nd MTP joint area. As the result, Remicade had to be discontinued. There was alsoinsurance coverage issue at that time. As the result, she has been off Remicade ever since. She subsequently had a left plantar wound closure. According to her, this was thought to be a subluxed left 2nd MTP joint which caused a local physical irritation. The surgery to remove left 2nd MTP joint went well and she recovered from it. The wound has been closed completely. She ran out of sulfasalazine about a month ago. Her prior electric truck operator declined to refill the prescription and to ask her to come for a follow-up visit. As Remicade was quite expensive and the combination of Remicade and sulfasalazine did not seem to help for her joint symptoms, the patient decided t o move her care to [facility]. According to the joint symptoms, they have continued to be over her finger knuckles joints especially over the DIPs, 1st CMC's and thumb IPs. She also has chronic left shoulder pain. She had a remote left shoulder injury after a fall. According to her, there was no fracture. However, she has had left shoulder pain with arm elevation above 90?? ever since. Right shoulder is not affected. According to her, there is no swollen joint any place currently. The right 4th DIP joint looks bony change consistent with Heberden's node but it is neither swollen nor red. Similarly, she also has bony changes consistent with which charts notes and Heberden's nodes in different other finger knuckle joints. She does have faint erythematous scaly rashes over her hyperthenar eminence and left medial plantar foot area. They are consistent with psoriasis. She reported no prior symptoms and history to suggest iritis/uveitis, inflammatory back pain, chronic mucus/bloody diarrhea to suggest inflammatory bowel disease. No prior symptoms or history to suggest peptic ulcer disease/GI bleeding, bleeding tendency, ischemic heart disease/congestive heart failure, jaundice/bursitis, known hepatic/renal disease. Her father had psoriasis. There is no obvious family history of psoriatic arthritis, iritis/uveitis,spondylitis, inflammatory bowel disease, rheumatoid arthritis, systemic lupus or autoimmune connective tissue diseases, or crystal- induced arthritis. A complete review of the systems is otherwise unremarkable except for impaired hearing, intermittentnose bleeding, occasional shortness of breath, increased urinary frequency, difficulty sleeping, sensitivity to heat/cold and dry eyes. Past Medical History: Idiopathic peripheral neuropathy. Family history of kidney cancer. Cataract extraction. Status post appendectomy, bilateral bunion surgery, bilateral TKA, ITALIA/BSO in 1972, and tonsillectomy. Benign right breast lumpectomy 1972. Hypertension. Hyperlipidemia. Hypothyroidism. Post menopause. Restless leg syndrome. Rheumatoid arthritis. 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 Nonsmoker. Drinks wine with dinner socially. with 3 adopted children. Current medications: Please see the most updated medication lists in the EMR. These are reviewed. Adverse drug reactions: Propoxyphene caused weakness. Sulindac caused hives. Physical exams: BP (!) 149/63 (BP Location: Left Arm, BP Cuff Size: Adult Regular/Long) Pulse 68 Ht 5' 4.75 (1.645 m) Wt 186 lb (84.4 kg) BMI 31.19 kg/m2 General appearance: An elderly female who was not in acute physical distress. Skin: Faint erythematous scaly maculopapular rashes over hypo-thenar eminences and left medial plantar foot suggestive of psoriasis. No obvious psoriatic nails. No tophus, nodules, open-wound ulcers, Raynaud changes, telangiectasia, sclerodermatous and dermatomyositis skin changes, psoriasis, or anything suggesting vasculitis, erythema nodosum. Normal nailfold capillaries. HEENT: No psoriasis on the scalp. No conjunctivitis, scleritis or active uveitis or synaechia. Normal extra ocular movements. No sinus tenderness. No malar rash, discoid rash, oral or nasal mucosal ulcers. No nasal septal perforation. Respiratory: Normal respiratory effort. Lungs are clear with good breath sounds. Heart: RR without audible murmurs, rubs, or gallops. Musculoskeletal exams: All 4 extremities were examined. Left shoulder arm abduction is limited to 120?? actively but this could go up to 165?? passively. No limited range of motion on flexion, internaland external rotation or extension of the left shoulder. Unremarkable right shoulder. Status post coleman ateral knee arthroplasties. Status post left 2nd MTP joint resection. Osteoarthritic changes over DIP joints, PIP joints, thumb IP and 1st CMC joints. Bunion deformities. Genu valgus medial toes, genu varus lateral toes. Normal gait, normal muscle power and tone. There is no significant synovitis/inflammatory arthritis/dactylitis or effusion in the joints. Laboratory exams: No laboratory evaluation within our system since 2005. On 04/10/2006, MRI of the left hip demonstrated: There is no evidence of occult left hip fracture, bone contusion, AVN, or other intrinsic abnormality of bone of the left hip joint region. No evidence of hip joint effusion or synovial thickening. The articular cartilage demonstrates mild diffuse thinning without focal defect. Pelvic girdle musculature, groin region, and surrounding soft tissues demonstrate normal signal and appearance. Within the true pelvis there is sigmoid diverticulosis, there appears to have been a hysterectomy, and there are multiple cystic structures in the area of the vaginal cuff ranging in size from 5 to 19 mm. Scans, which include portions of the right hip and surrounding soft tissues, appear unremarkable. MRI of the lumbar spines on the same day demonstrated: 1. Bilateral L5 spondylolysis, spondylolisthesis, degenerative disc disease, and disc bulging resulting in foraminal stenosis and deformity of both exiting L5 nerve roots left greater than right. 2. Small right paramedian L4-5 focal disc protrusion at and below the disc level abuts the traversing right L5 nerve root. 3. Eccentric left L2-3 and L3-4 foraminal disc bulging results in foraminal narrowing, more so at L3-4, although no definite compression of exiting L2 and L3 nerve roots. 4. Mild to moderate degenerative disc changes, moderate lower lumbar facet degenerative changes. Outside records: On 11/21/2017, serum creatinine 1.1, calcium 10.2. On 05/30/2017, normal ALT, serum albumin 4.6, normal serum calcium 9.5, serum creatinine 1.4, glucose 95, normal TSH, normal total bilirubin and total protein. Assessment and plans: 1. Hypo-thenar skin rashes suggestive of psoriasis, family history of psoriasis. 2. Hand osteoarthritis. Osteoarthritis, multiple joints. 3. 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 4. No convincing evidence currently to suggest systemic autoimmune inflammatory arthritis including rheumatoid arthritis and psoriatic arthritis, off sulfasalazine for one month, off Remicade for 7+ months. Pain is rated as 6. RAPID 3 score is 15.2. Although she has clinical skin rashes over the hypothenar eminences suggestive of psoriasis (and father with history of psoriasis), I do not see a clinical evidence of synovitis/inflammatory arthritis or joint effusion to suggest a clinical psoriatic arthritis at this point. As the patient has been off Remicade since August 2017 and has been off sulfasalazine for the past one month, the lack of objective clinical findings are most likely the true clinical findings not masked by prior treatment. Although she reported swelling and inflammation over the right 4th DIP joint in the past when she was 1st evaluated and told to have clinical rheumatoid arthritis, I do not think that the involvement over the DIP joint is consistent with rheumatoid arthritis. If this was truly an autoimmune inflammatory arthritis, it would be more consistent with psoriatic arthritis. The other differential diagnosis includes crystal-induced arthritis and inflammatory hand osteoarthritis. She does have definitive osteoarthritis involving several joints including her hands and previously over her knees. She has limited range of motion of the left shoulder with limited arm elevation actively but passively, she has almost complete full range of motion of her left shoulder joint suggestingthat this might be related to chronic rotator cuff tendinitis and possible early frozen shoulder. I discussed with her about my clinical impression as above. We discussed about the difference between noninflammatory osteoarthritis and systemic autoimmune inflammatory arthritis such as rheumatoid arthritis and psoriatic arthritis. At this point, I told her that I do not need to put her back on sulfasalazine, Remicade or prednisone. I told her to carefully look for the presence of a swollen joint. I printed out several pictures of psoriatic arthritis affecting peripheral joints for her to review. If the DIP joint is involved in the future, I will also consider doing an arthrocentesis to rule out crystal-induced arthritis as well. I do not have a specific treatment recommendation for her osteoarthritis. We discussed about management including the use of topical heating/icing her cream containing salicylate or lidocaine gel, general joint protection, ergonomics, using tools to help for daily activities, the use of acetaminophen up to 3000 mg a day and/or low-dose anti-inflammatory medication such as ibuprofen 200-400 mg up to 3times a day when stomach does not empty. She does have a prescription of tramadol through her primary care provider and that can also be used as well to help for her joint symptoms. For her left shoulder joint, I suggested herto have an x-ray today and physical therapy to help for clinical rotator cuff tendinitis. If this does not improve further, a cortisone injection can be considered. I would like her to have blood tests today for rheumatoid factor and CCP, serum creatinine, serum uric acid. I will correspond with her regarding the test results and would like to see her back for clinical follow-up in 3 months or earlier at any time if she has worsening joint symptoms or if there maxine presence of a swollen joint. Total time 60 minutes, 40 minutes counseling. documented in this encounter Plan of Treatment Upcoming Encounters Date Type Specialty Care Team Description 09/29/2022 Appointment Rheumatology Kal Davila MD [address] [facility] [address] [id number] (Wo rk) Scheduled Referrals Name Type Priority Associated Diagnoses Order S chedule Physical Therapy Referral Routine Chronic left sh oulder pain Ordered: 03/29/2018 Rotator cuff tendonitis, lef t documented as of this encounter Results XR Shoulder Lt 2+ Views (03/29/2018 10:21 AM CDT) Anatomical Region Laterality Modality Upper Extremity, Shoulder Digital Radiog jenny Specimen (Source) Anatomical Collection Method Collection Time Re ceived Time Location / / Volume Laterality 03/29/2018 10:05 AM CDT Narrative 03/29/2018 10:41 AM CDT COMPARISON: ??None. FINDINGS: ??Degenerative changes of the shoulder joint and acromioclavicular joint. No acute abnormality. Procedure Note Dylan Cook MD - 03/29/2018 COMPARISON: None. FINDINGS: Degenerative changes of the sh oulder joint and acromioclavicular joint. No acute abnormality. Denise Davila MD RAD GD (ABNORMAL) URIC - Uric Acid (03/29/2018 10:02 AM CDT) athologist Signature Uric Acid 8.3 (H) 2.6 - 6.0 PN SOFT Serum mg/dL Specimen Anatomical Collection Method Collection Time Receive d Time (Source) Location / / Volume Laterality 03/29/2018 10:02 03/29/2018 AM CDT 10:02 AM CDT Narrative PN SOFT - 03/29/2018 10:40 AM CDT Performed at [facility], [address] [place] [address] CLIA number [id number] Denise Davila MD LAB_1 Performing Organization Address City/State/ZIP Code Phon e Number PN SOFT [address] [place] [address] (ABNORMAL) CREAT - Creatinine (03/29/2018 10:02 AM CDT) Analysis Performed At Patho logist Time Signature Creatinine 1.50 (H) 0.55 - PN SOFT Serum 1.02 mg/dL Est GFR 38 (L) >60 PN SOFT Am mL/min/1.7 3m2 Est GFR Non-Afr 33 (L) >60 PN SOFT Am mL/min/1.7 3m2 Comment: Normal>60, moderate decrease 30 - 59, se lencho decrease 15 - 29, renal failure <15 mL/min/1.73 m2 NOTE: ??Choose the eGFR result above adiel ropriate for the race of the patient. Specimen Anatomical Collection Method Collection Time Receive d Time (Source) Location / / Volume Laterality 03/29/2018 10:02 03/29/2018 AM CDT 10:02 AM CDT Narrative PN SOFT - 03/29/2018 10:40 AM CDT Performed at [facility], [address] [place] [address] CLIA number [id number] Denise Davila MD LAB_1 Performing Organization Address [facility] Phon e Number PN SOFT [address] [place] [address] CCPIG - Cyclic Citrullinated Peptide AB (03/29/2018 10:02 AM CDT) Analysis Performed At Patho logist Time Signature CYCLIC 0.8 0.0 - 7.0 PN SOFT CITRULLINATED IU/mL PEPTIDEAB Comment: Reference Range: <7 Negative, 7 - 10 Equivocal, >10 Posit jn Specimen Anatomical Collection Method Collection Time Receive d Time (Source) Location / / Volume Laterality 03/29/2018 10:02 03/29/2018 1:08 AM CDT PM CDT Narrative PN SOFT - 04/01/2018 11:44 AM CDT Performed at [address] [address] CLIA number [id number] Denise Davila MD LAB_1 Performing Organization Address [facility] Phon e Number PN SOFT [address] [place] [address] RHF - Rheumatoid Factor (03/29/2018 10:02 AM CDT) P athologist Signature Rheumatoid <15 0 - 30 PN SOFT Factor IU/mL Specimen Anatomical Collection Method Collection Time Receive d Time (Source) Location / / Volume Laterality 03/29/2018 10:02 03/29/2018 1:11 AM CDT PM CDT Narrative PN SOFT - 03/29/2018 1:51 PM CDT Performed at [address] [address] CLIA number [id number] Denise Davila MD LAB_1 Performing Organization Address [facility] Phon e Number PN SOFT [address] [place] [address] documented in this encounter Visit Diagnoses Diagnosis Osteoarthritis of multiple joints, unspe cified osteoarthritis type - Primary Psoriasis Other psoriasis Chronic left shoulder pain Pain in joint, shoulder region Rotator cuff tendonitis, left Osteoarthritis of multiple joints, unspe cified osteoarthritis type Psoriasis Other psoriasis Osteoarthritis of multiple joints, unspe cified osteoarthritis type Psoriasis Other psoriasis Chronic left shoulder pain Pain in joint, shoulder region documented in this encounter Care Teams Rfid Engineer Relationship Specialty Start Date End Date Non Pn, Clinician, PCP - General 03/01/18 [place] [address] documented as of this encounter
--- OUTSIDE RECORDS SUMMARY | 2022-07-24 10:31 | XMS_ITS | Encounter Summary ---
:1940 Author Organization [facility] [facility] Address [address] [place] [address] Care Team Providers Name Role Phone Non Pn, Clinician Primary Care Provider Unavailable Encounter Details Date Type Department Care Team Description 03/29/2018 Lab Visit Neha Laborator paulie Osteoarthritis of multiple j oints, unspecified osteoarthritis type; [address] [place] [address] Social History Tobacco Use Types Packs/Day Years Used Date Smoking Tobacco: Never Sex Assigned at Date Recorded Not on file documented as of this encounter Plan of Treatment Upcoming Encounters Date Type Specialty Care Team Description 09/29/2022 Appointment Rheumatology Kal Davila MD [address] [facility] [address] [id number] (Wo rk) documented as of this encounter Procedures Procedure Name Priority Date/Time Associated Diagnosis Comme nts CREATININE / GFR Routine 03/29/2018 10:02 Osteoarthritis of Re sults for this AM CDT multiple joints, procedure a re in unspecified the results osteoarthritis t ype section. Psoriasis ANTI-CCP AB Routine 03/29/2018 10:02 Osteoarthritis of Result s for this AM CDT multiple joints, procedure a re in unspecified the results osteoarthritis t ype section. Psoriasis RHEUMATOID FACTOR, Routine 03/29/2018 10:02 Osteoarthritis of Results for this QUANT AM CDT multiple joints, procedure a re in unspecified the results osteoarthritis t ype section. Psoriasis URIC ACID Routine 03/29/2018 10:02 Osteoarthritis of Result s for this AM CDT multiple joints, procedure a re in unspecified the results osteoarthritis t ype section. Psoriasis documented in this encounter Results (ABNORMAL) URIC - Uric Acid (03/29/2018 10:02 AM CDT) P athologist Signature Uric Acid 8.3 (H) 2.6 - 6.0 PN SOFT Serum mg/dL Specimen Anatomical Collection Method Collection Time Receive d Time (Source) Location / / Volume Laterality 03/29/2018 10:02 03/29/2018 AM CDT 10:02 AM CDT Narrative PN SOFT - 03/29/2018 10:40 AM CDT Performed at [facility], [facility] [address] [place] [address] CLIA number [id number] Denise Davila MD LAB_1 Performing Organization Address [facility] Phon e Number PN SOFT [address] [place] [address] (ABNORMAL) CREAT - Creatinine (03/29/2018 10:02 AM [...] - 03/29/2018 10:40 AM CDT Performed at [facility], [facility] [address] [place] [address] CLIA number [id number] Denise Davila MD LAB_1 Performing Organization Address [facility] Phon e Number PN SOFT [address] [place] [address] [phone] CCPIG - Cyclic Citrullinated Peptide AB (03/29/2018 [...] - 04/01/2018 11:44 AM CDT Performed at [facility] [address] [place] [address] CLIA number [id number] Denise Davila MD LAB_1 Performing Organization Address [facility] Phon e Number PN SOFT [address] [place] [address] RHF - Rheumatoid Factor (03/29/2018 10:02 AM CDT) P athologist Signature Rheumatoid <15 0 - 30 PN SOFT Factor IU/mL Specimen Anatomical Collection Method Collection Time Receive d Time (Source) Location / / Volume Laterality 03/29/2018 10:02 03/29/2018 1:11 AM CDT PM CDT Narrative PN SOFT - 03/29/2018 1:51 PM CDT Performed at [facility] [address] [place] [address] CLIA number [id number] Denise Davila MD LAB_1 Performing Organization Address [facility] Phon e Number PN SOFT [address] [place] [address] documented in this encounter Visit Diagnoses Diagnosis Osteoarthritis of multiple joints, unspe cified osteoarthritis type Psoriasis Other psoriasis documented in this encounter Care Teams Converting Operator Relationship Specialty Start Date End Date Non Pn, Clinician, PCP - General 03/01/18 [place] [address] documented as of this encounter
--- OUTSIDE RECORDS SUMMARY | 2022-07-24 10:31 | XMS_ITS | Encounter Summary ---
:1940 Author Organization [facility] Address [address] [place] [address] Care Team Providers Name Role Phone Non Pn, Clinician Primary Care Provider Unavailable Encounter Details Date Type Department Care Team Description 03/29/2018 Notes/Orders Neha Rheumatol uriel Davila, [address] [facility] [place] [address] [address] [facility] [phone] [facility] [address] [id number] (Wo rk) Social History Tobacco Use Types Packs/Day Years Used Date Smoking Tobacco: Never Sex Assigned at Date Recorded Not on file documented as of this encounter Plan of Treatment Upcoming Encounters Date Type Specialty Care Team Description 09/29/2022 Appointment Rheumatology Kal Davila MD [address] [facility] [address] [id number] (Wo rk) documented as of this encounter Visit Diagnoses Not on filedocumented in this encounter Care Teams Manufacturing Team Leader Relationship Specialty Start Date End Date Non Pn, Clinician, PCP - General 03/01/18 [place] [address] documented as of this encounter
--- OUTSIDE RECORDS SUMMARY | 2022-07-24 10:31 | XMS_ITS | Encounter Summary ---
:1940 Author [facility] Address [address] [address] Care Team Providers Name Role Phone Liset Martinez MD Primary Care Provider Encounter Details Date Type Department Care Team Description 03/05/2006 Office Visit [facility] Jolynn Martinez MD [id number] [place] [address] [phone] Social History Tobacco Use Types Packs/Day Years Used Date Smoking Tobacco: Never Assessed Sex Assigned at Date Recorded Not on file documented as of this encounter Last Filed Vital Signs Vital Sign Reading Time Taken Comments Blood Pressure 130/70 03/05/2006 12:05 PM CDT Pulse 72 03/05/2006 12:05 PM CDT Temperature - - Respiratory Rate - - Oxygen Saturation - - Inhaled Oxygen Concentration - - Weight 93.4 kg (206 lb) 03/05/2006 12:05 PM CDT C: 93.4 kg Height - - Body Mass Index 33.76 02/22/2005 9:37 AM CDT documented in this encounter Progress Notes Liset Martinez MD - 03/05/2006 12:01 AM CDT Progress Notes signed by Liset Martinez MD at 04/09/06 6163 Author: Liset Martinez MD Service: (none) Author Type: Physician Filed: 12/02/10 1322 Note Time: 03/05/06 0001 Status: Signed Ecmo Specialist: Liset Martinez MD (Physician) NAME: NINA SAMUELS MR: [id number] ACCT: [id number] VISIT: [id number] DICTATING CLINICIAN: LISET MARTINEZ MD JOB: [id number] CLINIC PROGRESS NOTE DATE OF VISIT: 03/05/2006 SUBJECTIVE: : 1940. HISTORY: A 66-year-old with left low back and groin pain. She did fall perhaps 1 to 2 weeks ago onto both knees after tripping on a root. She noted no specific pain after that. [place] after cooking breakfast, while showering, noticed some sudden left hip pain. She felt it was painful to bear weight but she did get around. It was painful to lift her leg up the stairs. She did feel some tenderness lateral. She tried Tylenol which did not really help. Yesterday she used ice and a heating pad. It has been slowly improving. It seemed to radiate forward towards the groin. No rash. The pain does not radiate into the leg or buttock. She tried ibuprofen 1 tab which helped slightly, pain seemed to go from severe to moderate. There has been no pain with urination or change in bowels or fever. No other acute joint pains. PAST MEDICAL HISTORY: See the updated list in today's LastWord patient health profile. MEDICATIONS: Reviewed and included propoxyphene and sulindac for allergies. Tylenol Arthritis daily, furosemide 20 mg daily, Levothroid 0.112 mg daily, Premarin 0.3 mg daily, lisinopril 40 mg daily, simvastatin 10 mg q. p.m. OBJECTIVE: VS: BP: 130/70. P: 72. Wt: 206. GENERAL: Overweight female in no real distress. LUNGS: Clear. BACK: No CVA tenderness. There is no tenderness over the lumbosacral spine or sacroiliac joint. No paraspinal muscle spasm. MUSCULOSKELETAL: The right hip shows normal range of motion without pain. The left hip does show pain with internal and external rotation and Leonard maneuver. Her gait is stable, mildly antalgic. Decreased reflexes symmetric at the knees and ankle bilaterally. DIAGNOSTICS: X-ray of the left hip does show some mild degenerative changes, at the acetabulum. There is no obvious fracture. ASSESSMENT: Left hip pain, suspect DJD. PLAN: It is not exactly clear what brought on the current episode of hip pain. Some minor trauma was noted but not really chronologically related to current pain which started Sunday. She is going out of town on Sunday. We elected to try a Toradol injection, 15 mg times 1. It did improve pain to a mild level. She will try Naprosyn 500 mg p.o. b.i.d. p.r.n., take with food, prednisone 10 mg daily for the next 2 days. She will continue 1 week if it helps and quit if it does not help. I did give her some Vicodin, watch for sedation, for severe pain. May need to consider an MRI. As she is going out of town, she does not want to have that now, but will contact me if symptoms do not improve. SME:[id number] C: 03/06/06 15:39 DOCUMENT: [id number] documented in this encounter Plan of Treatment Upcoming Encounters Date Type Specialty Care Team Description 09/29/2022 Appointment Rheumatology Kal Davila MD [address] [facility] N [address] (Wo rk) documented as of this encounter Procedures Procedure Name Priority Date/Time Associated Diagnosis Comme nts XR PELVIS W LT Routine 03/05/2006 12:57 PM Result s for this LATERAL HIP CDT procedure are i n the results section. documented in this encounter Results XR Pelvis W Lt Lateral Hip (03/05/2006 12:57 PM CDT) Anatomical Region Laterality Modality Pelvis, Hip Other Specimen (Source) Anatomical Location Collection Method / Collectio n Time Received Time / Laterality Volume Narrative 03/05/2006 12:57 PM CDT Degenerative and sclerotic changes in the symphysis pubis. Degenerative changes in the lumbosacral facet joints. ??There may be spondylolysis at L5 as well. ??Oblique v iews of the lumbar spine as well as an AP and lateral view of the sania mbar spine might be considered if indicated. ??Otherwise, le ft hip and pelvis unremarkable. [id number]/ Dictating PAUL GOODEN MD Procedure Note Paul Moctezuma - 10/13/2016 Degenerative and sclerotic changes in th e symphysis pubis. Degenerative changes in the lumbosacral facet joints. There may be spondylolysis at L5 as well. Oblique vie ws of the lumbar spine as well as an AP and lateral view of the sania mbar spine might be considered if indicated. Otherwise, left hip and pelvis unremarkable. [id number] Dictating PAUL GOODEN MD Liset Martinez MD RAD GD documented in this encounter Visit Diagnoses Not on filedocumented in this encounter Care Teams Social Service Worker Relationship Specialty Start Date End Date Liset Martinez MD PCP - General 11/13/10 02/28/18 [address] [place] [address] documented as of this encounter
--- OUTSIDE RECORDS SUMMARY | 2022-07-24 10:31 | XMS_ITS | Encounter Summary ---
:[address] [facility] Address [address] [address] Care Team Providers Name Role Phone Radha Martinez MD Primary Care Provider Encounter Details Date Type Department Care Team Description 05/10/2006 Office Visit [facility] [place] [address] [address] [place] [address] [place] [address] [phone] (Wo rk) Social History Tobacco Use Types Packs/Day Years Used Date Smoking Tobacco: Never Assessed Sex Assigned at Date Recorded Not on file documented as of this encounter Plan of Treatment Upcoming Encounters Date Type Specialty Care Team Description 09/29/2022 Appointment Rheumatology Kal Davila MD [address] [facility] N [address] (Wo rk) documented as of this encounter Visit Diagnoses Not on filedocumented in this encounter Care Teams Marking Devices Assembler Relationship Specialty Start Date End Date Radha Martinez MD PCP - General 11/13/10 02/28/18 [address] [place] [address] documented as of this encounter
--- OUTSIDE RECORDS SUMMARY | 2022-07-24 10:31 | XMS_ITS | Encounter Summary ---
:1940 Author Organization [facility] Address [address] [address] Care Team Providers Name Role Phone Non Pn, Clinician Primary Care Provider Unavailable Reason for Visit Procedure/Equipment (Routine) - Incomplete Specialty Diagnoses / Procedures Referred By Contact Refer red To Contact Diagnoses Osteoarthritis of multiple joints, unspecified osteoarthritis type Psoriasis Chronic left shoulder pain Denise Davila, Procedures XR Shoulder Lt 2+ Views [address] [place], [place] [address] Referral ID Status Reason Start Date Expiration Date Visits V isits Requested Authorized [id number] Incomplete 03/29/2018 06/28/2019 1 1 Encounter Details Date Type Department Care Team Description 03/29/2018 Imaging [facility] [place], Osteoarthritis of multiple j oints, unspecified osteoarthritis type; [address] [facility] MD Denise Psoriasis; [place] [address] [address] Chronic left shoulder pain [phone] [place] [address] (Wo rk) Social History Tobacco Use Types Packs/Day Years Used Date Smoking Tobacco: Never Sex Assigned at Date Recorded Not on file documented as of this encounter Plan of Treatment Upcoming Encounters Date Type Specialty Care Team Description 09/29/2022 Appointment Rheumatology Kal Davila MD [address] [facility] N [id number] (Wo rk) documented as of this encounter Procedures Procedure Name Priority Date/Time Associated Diagnosis Comme nts XR SHOULDER LT 2+ Routine 03/29/2018 10:21 Osteoarthritis of R esults for this VIEWS AM CDT multiple joints, procedure a re in unspecified the results osteoarthritis t ype section. Psoriasis Chronic left shoulder pain documented in this encounter Results XR Shoulder Lt 2+ [...] acute abnormality. Denise Davila MD RAD GD documented in this encounter Visit Diagnoses Diagnosis Osteoarthritis of multiple joints, unspe cified osteoarthritis type Psoriasis Other psoriasis Chronic left shoulder pain Pain in joint, shoulder region documented in this encounter Care Teams Poultry Farmer Egg Relationship Specialty Start Date End Date Non Pn, Clinician, PCP - General 03/01/18 [place] [address] documented as of this encounter
--- OUTSIDE RECORDS SUMMARY | 2022-07-24 10:31 | XMS_ITS | Encounter Summary ---
:1940 Author Organization [facility] Address [address] [place] [address] Care Team Providers Name Role Phone Radha Martinez MD Primary Care Provider Encounter Details Date Type Department Care Team Description 05/18/2006 PN Conversion Only [facility] [address] [place] [address] Social History Tobacco Use Types Packs/Day Years Used Date Smoking Tobacco: Never Assessed Sex Assigned at Date Recorded Not on file documented as of this encounter Plan of Treatment Upcoming Encounters Date Type Specialty Care Team Description 09/29/2022 Appointment Rheumatology Kal Davila MD [address] [facility] N [id number] (Wo rk) documented as of this encounter Procedures Procedure Name Priority Date/Time Associated Diagnosis Comme nts MM MAMMOGRAM DIAG Routine 05/18/2006 1:49 PM Resu lts for this DIGITAL UNILAT W CDT procedure a re in CAD the results section. documented in this encounter Results MM Mammogram Diag Digital Unilat W CAD (05/18/2006 1:49 PM CDT) Anatomical Region Laterality Modality Breast Mammography Specimen (Source) Anatomical Location Collection Method / Collectio n Time Received Time / Laterality Volume Impressions 05/21/2006 8:09 AM CDT : ??Small cluster of punctate microcalcifications far posterior left breast not clearly change d since 12/12/2001 and also seen on mammogram from 11/21/2000. ??The se likely are benign. ??The patient should return in 1 year's time f or screening mammography. ACR-BIRADS CATEGORY 2: ??Benign finding. [id number] Dictating GABBIE MOE RADIOLOGIST Narrative 05/21/2006 8:09 AM CDT Magnification views of the left breast were obtained to evaluate a cluster of microcalcifications in the fa r posterior breast. ??There are numerous calcifications in a small c luster. ??These appear punctate. ??They were also evaluated wit h magnification views on 12/12/2001 and 06/17/2002. ??Although th e calcifications are better seen on the current digital technology, they do not appear significantly changed compared with the previous mammograms. Procedure Note Gabbie Mcclain - 10/13/2016 Magnification views of the left breast w ere obtained to evaluate a cluster of microcalcifications in the fa r posterior breast. There are numerous calcifications in a small c luster. These appear punctate. They were also evaluated with magnification views on 12/12/2001 and 06/17/2002. Although the calcifications are better seen on the current digital technology, they do not appear significantly changed compared with the previous mammograms. IMPRESSION : Small cluster of punctate microcalcifi cations far posterior left breast not clearly change d since 12/12/2001 and also seen on mammogram from 11/21/2000. These likely are benign. The patient should return in 1 year's time f or screening mammography. ACR-BIRADS CATEGORY 2: Benign finding. [id number] Dictating GABBIE MOE RADIOLOGIST Radha Martinez MD RAD AMBER documented in this encounter Visit Diagnoses Not on filedocumented in this encounter Care Teams Faith Healer Relationship Specialty Start Date End Date Radha Martinez MD PCP - General 11/13/10 02/28/18 [address] [place] [address] documented as of this encounter
--- OUTSIDE RECORDS SUMMARY | 2022-07-24 10:31 | XMS_ITS | Encounter Summary ---
:1940 Author Organization [facility] Address [address] [address] Care Team Providers Name Role Phone Radha Martinez MD Primary Care Provider Encounter Details Date Type Department Care Team Description 08/10/2005 Nursing Visit [facility] Bella Santo MD [address] [address] [place] [address] [phone] Social History Tobacco Use Types Packs/Day Years Used Date Smoking Tobacco: Never Assessed Sex Assigned at Date Recorded Not on file documented as of this encounter Plan of Treatment Upcoming Encounters Date Type Specialty Care Team Description 09/29/2022 Appointment Rheumatology Kal Davila MD [address] [facility] N [address] (Wo rk) documented as of this encounter Visit Diagnoses Not on filedocumented in this encounter Care Teams Mri Technologist Relationship Specialty Start Date End Date Radha Martinez MD PCP - General 11/13/10 02/28/18 [address] [place] [address] documented as of this encounter
--- OUTSIDE RECORDS SUMMARY | 2022-07-24 10:31 | XMS_ITS | Encounter Summary ---
:1940 Author Organization [facility] Address [address] [place] [address] Care Team Providers Name Role Phone Non Pn, Clinician Primary Care Provider Unavailable Encounter Details Date Type Department Care Team Description 02/10/2019 Notes/Orders Neha Rheumatol uriel Davila, [address] [facility] [place] [address] [address] [facility] [phone] [facility] N [address] (Wo rk) Social History Tobacco Use Types Packs/Day Years Used Date Smoking Tobacco: Never Smokeless Tobacco: Never Sex Assigned at Date Recorded Not on file documented as of this encounter Plan of Treatment Upcoming Encounters Date Type Specialty Care Team Description 09/29/2022 Appointment Rheumatology Kal Davila MD [address] [facility] N [phone] (Wo rk) documented as of this encounter Visit Diagnoses Not on filedocumented in this encounter Care Teams Hand Painter Relationship Specialty Start Date End Date Non Pn, Clinician, PCP - General 03/01/18 [place] [address] documented as of this encounter
--- OUTSIDE RECORDS SUMMARY | 2022-07-24 10:31 | XMS_ITS | Encounter Summary ---
:1940 Author Organization [facility] Address [address] [place] [address] Care Team Providers Name Role Phone Radha Martinez MD Primary Care Provider Encounter Details Date Type Department Care Team Description 02/19/2006 PN Conversion Only [facility] CONVERSION Urban Martinez MD [address] [place] [address] (Wo rk) Social History Tobacco Use Types Packs/Day Years Used Date Smoking Tobacco: Never Assessed Sex Assigned at Date Recorded Not on file documented as of this encounter Plan of Treatment Upcoming Encounters Date Type Specialty Care Team Description 09/29/2022 Appointment Rheumatology Kal Davila MD [address] [facility] N [id number] (Wo rk) documented as of this encounter Procedures Procedure Name Priority Date/Time Associated Comments Diagnosis GLUCOSE Routine 02/19/2006 9:58 AM Results f or this CDT procedure are i n the results section. THYROID STIMULATING Routine 02/19/2006 9:58 AM Re sults for this HORMONE CDT procedure are i n the results section. URINALYSIS Routine 02/19/2006 9:58 AM Results f or this ROUTINE(MICRO IF POS) CDT proced ure are in the results section. LIPID PANEL AND Routine 02/19/2006 9:58 AM Result s for this DIRECT LDL(IF NEEDED) CDT proced ure are in the results section. CREATININE / GFR Routine 02/19/2006 9:58 AM Resul ts for this CDT procedure are i n the results section. COMPLETE BLOOD Routine 02/19/2006 9:58 AM Results for this COUNT-W/DIFF CDT procedure are i n the results section. HGB A1C Routine 02/19/2006 9:58 AM Results f or this CDT procedure are i n the results section. ALT (SGPT) Routine 02/19/2006 9:58 AM Results f or this CDT procedure are i n the results section. AST Routine 02/19/2006 9:58 AM Results f or this CDT procedure are i n the results section. SODIUM Routine 02/19/2006 9:58 AM Results f or this CDT procedure are i n the results section. POTASSIUM Routine 02/19/2006 9:58 AM Results f or this CDT procedure are i n the results section. CK, TOTAL Routine 02/19/2006 9:58 AM Results f or this CDT procedure are i n the results section. BUN Routine 02/19/2006 9:58 AM Results f or this CDT procedure are i n the results section. documented in this encounter Results Complete Blood Count-W/Diff (02/19/2006 9:58 AM CDT) [facility] Method Time Signature White Blood Cell 5.8 3.8 - 11.0 HP CONVERSIO N Count K/cmm Red Blood Cell 4.19 3.70 - HP CONVERSION Count 5.20 m/cmm Hemoglobin 12.4 11.8 - HP CONVERSION 15.5 gm/dL Hematocrit 37.4 35.0 - HP CONVERSION 46.0 % Mean Corpuscular 89.2 80.0 - HP CONVERSION Volume 100.0 fl Mean Corpuscular 29.7 27.0 - HP CONVERSION Hemoglobin 34.0 pg Mean Corpuscular 33.3 32.0 - HP CONVERSION Hemoglobin Conc 36.5 gm/dL [place] RDW 12.0 11.0 - HP CONVERSION 15.0 % Platelet Count 201 140 - 450 HP CONVERSION k/cmm Differential Auto-Dif No normal HP CONVERSION Verify range Neutrophils 3.8 2.0 - 7.5 HP CONVERSION Absolute Count K/cmm Neutrophil 66.6 50.0 - HP CONVERSION 75.0 % Lymphocyte % 25.5 20.0 - HP CONVERSION 40.0 % Monocyte 6.3 5.0 - 14.0 HP CONVERSION % Eosinophil 1.2 0.0 - 6.0 HP CONVERSION % Basophil % 0.4 0.0 - 2.0 HP CONVERSION % Specimen (Source) Anatomical Collection Method Collection Time Re ceived Time Location / / Volume Laterality 02/19/2006 9:58 AM CDT Radha Martinez MD LAB_1 Performing Organization Address City/[facility]/ZIP Code Phon e Number HP CONVERSION ALT (SGPT) (02/19/2006 9:58 AM CDT) [facility] Method Time Signature Alanine 34 0 - 65 HP CONVERSION Aminotransferase U/L Specimen (Source) Anatomical Collection Method Collection Time Re ceived Time Location / / Volume Laterality 02/19/2006 9:58 AM CDT Radha Martinez MD LAB_1 Performing Organization Address [facility] Phon e Number HP CONVERSION AST (02/19/2006 9:58 AM CDT) [facility] Method Time Signature Aspartate 16 0 - 45 HP CONVERSION Aminotransferase U/L Specimen (Source) Anatomical Collection Method Collection Time Re ceived Time Location / / Volume Laterality 02/19/2006 9:58 AM CDT Radha Martinez MD LAB_1 Performing Organization Address [facility] Phon e Number HP CONVERSION BUN (02/19/2006 9:58 AM CDT) athologist Signature Blood Urea 20 5 - 26 HP CONVERSION Nitrogen mg/dL Specimen (Source) Anatomical Collection Method Collection Time Re ceived Time Location / / Volume Laterality 02/19/2006 9:58 AM CDT Radha Martinez MD LAB_1 Performing Organization Address City/[facility]/ZIP Code Phon e Number HP CONVERSION CK, Total (02/19/2006 9:58 AM CDT) P athologist Signature Creatine Kinase 114 0 - 225 HP CONVERSION U/L Specimen (Source) Anatomical Collection Method Collection Time Re ceived Time Location / / Volume Laterality 02/19/2006 9:58 AM CDT Radha Martinez MD LAB_1 Performing Organization Address City/[facility]/ZIP Code Phon e Number HP CONVERSION Creatinine / GFR (02/19/2006 9:58 AM CDT) athologist Signature Creatinine 1.0 0.5 - 1.5 HP CONVERSION Serum mg/dL Specimen (Source) Anatomical Collection Method Collection Time Re ceived Time Location / / Volume Laterality 02/19/2006 9:58 AM CDT Radha Martinez MD LAB_1 Performing Organization Address City/State/ZIP Code Phon e Number HP CONVERSION (ABNORMAL) Glucose (02/19/2006 9:58 AM CDT) athologist Signature Lab Glucose 101 (H) 60 - 100 HP CONVERSION mg/dL Specimen (Source) Anatomical Collection Method Collection Time Re ceived Time Location / / Volume Laterality 02/19/2006 9:58 AM CDT Radha Martinez MD LAB_1 Performing Organization Address City/State/ZIP Code Phon e Number HP CONVERSION Sodium (02/19/2006 9:58 AM CDT) athologist Signature Sodium 140 137 - 147 HP CONVERSION meq/L Specimen (Source) Anatomical Collection Method Collection Time Re ceived Time Location / / Volume Laterality 02/19/2006 9:58 AM CDT Radha Martinez MD LAB_1 Performing Organization Address City/State/ZIP Code Phon e Number HP CONVERSION Potassium (02/19/2006 9:58 AM CDT) athologist Signature Potassium 4.8 3.5 - 5.2 HP CONVERSION meq/L Specimen (Source) Anatomical Collection Method Collection Time Re ceived Time Location / / Volume Laterality 02/19/2006 9:58 AM CDT Radha Martinez MD LAB_1 Performing Organization Address City/State/ZIP Code Phon e Number HP CONVERSION (ABNORMAL) Lipid Panel and Direct LDL(If Needed) (02/19/2006 9:58 AM CDT) [facility] gist Method Time Signature Cholesterol/HDL 6.0 No normal HP CONVERSION Ratio Screen range Cholesterol 263 (H) <200 mg/dL HP CONVERSION HDL Cholesterol 44 40 - 60 HP CONVERSION mg/dL Triglycerides 247 (H) 0 - 149 HP CONVERSION mg/dL LDL Calculated 170 (H) 0 - 130 HP CONVERSION mg/dL Comment: Specimen (Source) Anatomical Collection Method Collection Time Re ceived Time Location / / Volume Laterality 02/19/2006 9:58 AM CDT Radha Martinez MD LAB_1 Performing Organization Address [facility] Phon e Number HP CONVERSION Hgb A1c (02/19/2006 9:58 AM CDT) athologist Signature HGB A1C 5.9 <6.0 % HP CONVERSION Specimen (Source) Anatomical Collection Method Collection Time Re ceived Time Location / / Volume Laterality 02/19/2006 9:58 AM CDT Radha Martinez MD LAB_1 Performing Organization Address [facility] Phon e Number HP CONVERSION Thyroid Stimulating Hormone (02/19/2006 9:58 AM CDT) athologist Signature Thyroid 1.18 0.20 - HP CONVERSION Stimulating 4.50 Hormone uIU/mL Specimen (Source) Anatomical Collection Method Collection Time Re ceived Time Location / / Volume Laterality 02/19/2006 9:58 AM CDT Radha Matrinez MD LAB_1 Performing Organization Address [facility] Phon e Number HP CONVERSION Urinalysis Routine(Micro If Pos) (02/19/2006 9:58 AM CDT) [facility] gist Method Time Signature Turbidity Clear No normal HP CONVERSION range pH Urine 6.5 4.5 - 7.5 HP CONVERSION Protein Urine Negative Neg-Trac HP CONVERSION Glucose, Negative Neg-Trac HP CONVERSION Qualitative U Ketones Negative Negative HP CONVERSION U BILI Negative Negative HP CONVERSION Blood Urine Negative Negative HP CONVERSION Nitrite Urine Negative Negative HP CONVERSION Leukocyte Negative Negative HP CONVERSION Esterase Urine Urobilinogen Negative 0.2 - 1.0 HP CONVERSION Urine U Specific 1.020 1.005 - 25 HP CONVERSION [place] Specimen (Source) Anatomical Collection Method Collection Time Re ceived Time Location / / Volume Laterality 02/19/2006 9:58 AM CDT Radha Martinez MD LAB_1 Performing Organization Address [facility] Phon e Number HP CONVERSION documented in this encounter Visit Diagnoses Not on filedocumented in this encounter Care Teams Certified Dietary Manager Relationship Specialty Start Date End Date Radha Martinez MD PCP - General 11/13/10 02/28/18 [address] [place] [address] documented as of this encounter
--- OUTSIDE RECORDS SUMMARY | 2022-07-24 10:31 | XMS_ITS | Encounter Summary ---
:1940 Author Organization [email or web address] Address [address], [place] [address] Care Team Providers Name Role Phone Liset Martinez MD Primary Care Provider Reason for Visit Reason Comments Other Encounter Details Date Type Department Care Team Description 04/17/2006 Telephone [facility] Deisi Tavarez [address] [place] [address] Social History Tobacco Use Types Packs/Day Years Used Date Smoking Tobacco: Never Assessed Sex Assigned at Date Recorded Not on file documented as of this encounter Progress Notes Oscar Ryder - 04/17/2006 11:27 AM CDT Phone Note filed by Oscar Ryder RN at 11/29/10811 Author: Oscar Ryder RN Service: (none) Author Type: (none) Filed: 11/29/10811 Note Time: 04/17/061126 Status: Signed Jig Box Operator: Rahat Conversion MESSAGE TO CARE TEAM NAME OF CALLER: Princess (patient) NAME OF CLINICIAN: Michelle (Donna covering 04/17) MESSAGE: Patient is aware that Dr Martinez out of office until 04/18 - patient does not want to wait (going out of town this afternoon), wants covering clinician to call her. Calling for results of MRI of left lip and back. CALL BACK PHONE #: [phone] cell BEST TIME TO CALL BACK: today - any Is it OK to leave detailed message on voicemail? yes Created on 17Apr2006 11:27am by OSCAR RYDER On 17Apr2006 11:46am DONNA CEJA wrote: called, discussed results, will consider PT, pt leaving today for the week, wishes to discuss with SE apon her return. Acknowledged by DONNA CEJA on 11:46am On 23Apr2006 12:51pm LISET MARTINEZ wrote: i called her, MRI shows DJD, DDD, spondylolisthesis. hip looks ok, may pain in LBP radiating to left hip. plan to refer to PT for eval. please call her with referral. se Acknowledged by LISET MARTINEZ on 12:51pm On 23Apr2006 1:54pm DEISI TAVAREZ wrote: Called, transfered to rehab scheduling. Acknowledged by DEISI TAVAREZ on 1:54pm RE SKATER documented in this encounter Plan of Treatment Upcoming Encounters Date Type Specialty Care Team Description 09/29/2022 Appointment Rheumatology Kal Davila MD [address] [id number] (Wo rk) documented as of this encounter Visit Diagnoses Not on filedocumented in this encounter Care Teams First Beater Relationship Specialty Start Date End Date Liset Martinez MD PCP - General 11/13/10 02/28/18 [address] [place] [address] documented as of this encounter
--- OUTSIDE RECORDS SUMMARY | 2022-07-24 10:31 | XMS_ITS | Encounter Summary ---
:1940 Author Organization [email or web address] Address [address], [place] [address] Care Team Providers Name Role Phone Non Pn, Clinician Primary Care Provider Unavailable Reason for Visit Reason Comments Follow-up Encounter Details Date Type Department Care Team Description 02/07/2019 Office Visit Neha Davila, Osteoarthritis of multiple joints, unspecified osteoarthritis type (Primary Dx); Rheumatology MD Denise Psoriasis [address] [employer] [address] [address] [facility] [phone] [place], [place] [id number] Social History Tobacco Use Types Packs/Day Years Used Date Smoking Tobacco: Never Smokeless Tobacco: Never Sex Assigned at Date Recorded Not on file documented as of this encounter Last Filed Vital Signs Vital Sign Reading Time Taken Comments Blood Pressure 140/60 02/07/2019 4:04 PM CDT Pulse 66 02/07/2019 4:04 PM CDT Temperature - - Respiratory Rate - - Oxygen Saturation - - Inhaled Oxygen Concentration - - Weight 86.6 kg (191 lb) 02/07/2019 4:04 PM CDT Height - - Body Mass Index 32.03 03/29/2018 9:30 AM CDT documented in this encounter Patient Instructions Patient InstructionsDenise Davila MD - 02/07/2019 4:15 PM CDT Tylenol 1000 mg each time, up to 3 times a day. Asper cream now has a formula which also contains lidocaine. documented in this encounter Progress Notes Denise Davila MD - 02/07/2019 4:15 PM CDT SUBJECTIVE: Follow-up for osteoarthritis, history of intermittent palmar rash suggestive of psoriasis, off all disease modifying agent. History of present illness: This is a 6 month follow-up for the patient. She has been off Remicade and sulfasalazine completely for longer than a year. I am in the process of monitoring for her to see if inflammatory arthritis is recurring. According to her, the palmar rashes are not present currently. She still has intermittent aching over her finger knuckle joints, thumb joints, and sometimes over lower back although the joints are not swollen. She has had bilateral knee arthroplasties. The right prosthetic knee starts to cause a slight discomfort with weight-bearing activities especially over the lateral part of her right knee. She yet has to make an appointment to have a follow-up with her orthopedic surgeon. She currently takes Aleve 1 tablet twice a day. She also takes tramadol provided by her primary careprovider 1 tablet before bedtime to help for symptoms suggestive of neuropathy over her feet. Past medical history, family and social history, current medications and adverse reactions were updated in EMR. Physical exams: BP (!) 140/60 (BP Location: Left Arm, BP Cuff Size: Adult Regular) Pulse 66 Wt 191 lb (86.6 kg) BMI 32.03 kg/m?? General appearance: An elderly female who was not in acute physical distress. Skin: No rash, tophus, nodules, open-wound ulcers, Raynaud changes, telangiectasia, sclerodermatous and dermatomyositis skin changes, psoriasis, psoriatic nail or anything suggesting vasculitis, erythema nodosum. Normal nailfold capillaries. Musculoskeletal exams: All 4 extremities were examined. Typical Meredith's nodes and Heberden's nodes. Status post bilateral knee arthroplasties with no clinical joint effusion. No significant synovitis/inflammatory arthritis in any joints. Assessment and plan: 1. Multiple joint osteoarthritis. 2. History of palmar. skin rash suggestive of psoriasis. No clinical psoriatic arthritis currently. Pain is rated as 6.5. RAPID 3 score is 10.5. The patient still has not had a recurrent inflammatory arthritis to suggest rheumatoid arthritis or possible psoriatic arthritis. Her current ongoing symptoms are most likely secondary to osteoarthritis. For her right prosthetic knee, which has been 26 years old, I suggested her to having evaluation with her orthopedic surgeons. For symptoms related to osteoarthritis, I told her to discontinue Aleve.Note that her serum creatinine 10 months ago was 1.5 with estimated GFR of 33. Chronic long-term useof nonsteroidal anti-inflammatory medication could worsen the underlying kidney insufficiency. I told her to optimize the dose of Tylenol to 1000 mg up to 3 times a day and use this in conjunction withtopical treatments such as Aspercreme and lidocaine gel. If tramadol is tolerated, she can also discuss with her primary care provider to increase the dose during the day as needed. I will continue to monitor her for recurrent inflammatory arthritis. Follow-up again in 6 months. Total time is 15 minutes, 10 minutes counseling. documented in this encounter Plan of Treatment Upcoming Encounters Date Type Specialty Care Team Description 09/29/2022 Appointment Rheumatology Kal Davila MD [address] [facility] N [id number] (Wo rk) documented as of this encounter Visit Diagnoses Diagnosis Osteoarthritis of multiple joints, unspe cified osteoarthritis type - Primary Psoriasis Other psoriasis documented in this encounter Care Teams Risk Control Representative Relationship Specialty Start Date End Date Non Pn, Clinician, PCP - General 03/01/18 [place] [address] documented as of this encounter
--- OUTSIDE RECORDS SUMMARY | 2022-07-24 10:31 | XMS_ITS | Encounter Summary ---
:1940 Author Organization [employer] Address [address] [address] Care Team Providers Name Role Phone Liset Martinez MD Primary Care Provider Reason for Visit Reason Comments Other Encounter Details Date Type Department Care Team Description 03/26/2006 Telephone [place] [facility] Deisi Tavarez [address] [place] [address] Social History Tobacco Use Types Packs/Day Years Used Date Smoking Tobacco: Never Assessed Sex Assigned at Date Recorded Not on file documented as of this encounter Progress Notes Katty Thayer - 03/26/2006 2:35 PM CDT Phone Note filed by Katty Thayer RN at 11/29/10725 Author: Katty Thayer RN Service: (none) Author Type: Registered Nurse Filed: 11/29/10725 Note Time: 03/26/06 3621 Status: Signed Hat Cutter: Katty Thayer RN (Registered Nurse) Princess was seen the end of February. She was to call back after her trip to [place] if she was not better. She is only soightly better. She can't stand or sit for very long. She has pain in bed if she lays on her left side. She states that you discussed that she should maybe have a MRI and f/up appt. Your 1st available appt. is 04/11 (this is scheduled). She is wanting sooner. Call her at home:[phone]...message is ok., Created on 26Mar2006 2:35pm by KATTY THAYER On 27Mar2006 8:56am LISET MARTINEZ wrote: can you find a spot for her to follow up? se Acknowledged by LISET MARTINEZ on 8:56am On 27Mar2006 10:17am DEISI TAVAREZ wrote: Spoke to her, changed to the . Acknowledged by DEISI TAVAREZ on 10:17am DREN COUNSELOR documented in this encounter Plan of Treatment Upcoming Encounters Date Type Specialty Care Team Description 09/29/2022 Appointment Rheumatology Kal Davila MD [address] [facility] [place] [address] [address] (Wo rk) documented as of this encounter Visit Diagnoses Not on filedocumented in this encounter Care Teams Flight Operations Inspector Relationship Specialty Start Date End Date Liset Martinez MD PCP - General 11/13/10 02/28/[address] [facility] [place] [address] documented as of this encounter
--- OUTSIDE RECORDS SUMMARY | 2022-07-24 10:31 | XMS_ITS | Encounter Summary ---
:1940 Author Organization [facility] Address [address] [place] [address] Care Team Providers Name Role Phone Radha Martinez MD Primary Care Provider Encounter Details Date Type Department Care Team Description 12/11/2010 PN Conversion Only [facility] Brie Martinez, Medicine [address] [address] [facility] [phone] [place], [place] [id number] (Wo rk) Social History Tobacco Use Types Packs/Day Years Used Date Smoking Tobacco: Never Assessed Sex Assigned at Date Recorded Not on file documented as of this encounter Plan of Treatment Upcoming Encounters Date Type Specialty Care Team Description 09/29/2022 Appointment Rheumatology Kal Davila MD [address] [facility] N [id number] (Wo rk) documented as of this encounter Visit Diagnoses Not on filedocumented in this encounter Care Teams Radiology Aide Relationship Specialty Start Date End Date Radha Martinez MD PCP - General 11/13/10 02/28/18 [address] [place] [id number] documented as of this encounter
--- OUTSIDE RECORDS SUMMARY | 2022-07-24 10:31 | XMS_ITS | Encounter Summary ---
:1940 Author Organization [employer] Address [address] [address] Care Team Providers Name Role Phone Non Pn, Clinician Primary Care Provider Unavailable Reason for Visit Reason Comments Follow-up Encounter Details Date Type Department Care Team Description 08/15/2019 Office Visit Neha Davila, Osteoarthritis of multiple joints, unspecified osteoarthritis type (Primary Dx); Rheumatology MD Denise Psoriasis; [address] [employer] [address] [place] [address] Psoriatic arthritis (HRC); [place] [address] Bl High risk medication use [phone] [place], [place] [phone] Social History Tobacco Use Types Packs/Day Years Used Date Smoking Tobacco: Never Smokeless Tobacco: Never Sex Assigned at Date Recorded Not on file documented as of this encounter Last Filed Vital Signs Vital Sign Reading Time Taken Comments Blood Pressure 169/61 08/15/2019 10:40 AM ON AWAKE COUNSELOR Pulse 66 08/15/2019 10:40 AM ON AWAKE COUNSELOR Temperature - - Respiratory Rate - - Oxygen Saturation - - Inhaled Oxygen Concentration - - Weight 84.4 kg (186 lb) 08/15/2019 10:40 AM ON AWAKE COUNSELOR Height - - Body Mass Index 31.19 03/29/2018 9:30 AM CDT documented in this encounter Progress Notes Denise Davila MD - 08/15/2019 10:45 AM CST SUBJECTIVE: Follow-up for osteoarthritis, intermittent palmar rashes suggestive of psoriatic arthritis. History of present illness: This is a 6 month follow-up for the patient. She was taking combination of sulfasalazine and Remicade when I first saw her in January of 2018. However, she had been off both medication at that time and was still doing well. And therefore, we decided just to clinically follow her. I saw her again 6 months ago in she was continuing to do well with recurrent faint rashes over pal ms to suggest psoriasis but she did not find to have inflammatory arthritis to suggest active psoriatic arthritis. She was found to have osteoarthritis. She was doing well again until approximately 2-3 weeks ago when she started noticing swelling and puffiness of her left third and fourth fingers especially across the PIP joints and surrounding area suggestive of dactylitis. Her skin rashes are still not significantly active at this point. She just had left foot surgery about a month ago and this swollen left finger started while recovering from the surgery. Other joints are doing well otherwise. This swollen joints associated with significant morning stiffness. She told me that she has never been on any other medication other than sulfasalazine and Remicade. She has never been put on methotrexate. Past medical history, family and social history, current medications and adverse reactions were updated in EMR. Physical exams: BP (!) 169/61 (BP Location: Left Arm, BP Cuff Size: Large) Pulse 66 Wt 186 lb (84.4 kg) BMI 31.19 kg/m?? General appearance: An elderly female who was not in acute physical distress. Skin: No significant unusual skin rashes to suggest active psoriasis today. Musculoskeletal exams: All 4 extremities were examined. Moderate synovitis over left third and fourth PIP joints with a surrounding dactylitis. Osteoarthritic changes in any other finger knuckle joints. No significant synovitis/inflammatory arthritis in any other remaining joints. Assessment and plan: 1. Recurrent psoriatic arthritis. 2. Osteoarthritis. 3. Expected long-term use of high-risk medication and monitoring. Pain is rated as 6. RAPID 3 score is 11.2. The patient is found to have clinical significant synovitis over left third and fourth PIP joints with surrounding dactylitis consistent with psoriatic arthritis. Her disease eventually has recurred since she was off Remicade and sulfasalazine 1 and half years ago. And therefore, it is time to get herback on a disease modifying agent again. As she has never been on methotrexate before, this can be started first and if she does not respond to it with the optimal dose, we could potentially add Remicade back. Discussed with her about side effects and benefits of methotrexate and the blood test monitoring was emphasized. Through shared decision making process, she mutually agreed to pursue. Information related to methotrexate, psoriatic arthritis and the importance of having blood test monitoring were printed out for her to review. I will put her on methotrexate 15 mg weekly together with folic acid 1 mg a day. To quickly resolve the symptoms awaiting methotrexate to start working, I will put her on a course of prednisone. The detailed tapering instruction was printed out for her to review and faxed to her pharmacy. She has been updated with annual influenza pneumococcal vaccinations. She I would like her to have blood test today for CBCs, sed rate and CRP, ALT in creatinine, hepatitis-B and C serology and TB goldQuantiFERON. Follow-up again in about 8 weeks. Will correspond with her regarding the test results. Total time is 25 minutes, 20 minutes counseling. AWAKE COUNSELOR documented in this encounter Plan of Treatment Upcoming Encounters Date Type Specialty Care Team Description 09/29/2022 Appointment Rheumatology Kal Davila MD [address] [facility] [address] (Wo rk) documented as of this encounter Results HCAB - Hepatitis C Virus Marta with Reflex In-House (08/15/2019 11:29 AM ON AWAKE COUNSELOR) [facility] Method Time Signature Hepatitis C Negative Negative 08/15/2019 [facility] Antibody (Non (Non 4:04 PM ON AWAKE COUNSELOR LABORATORY Reactive) Reactive) Comment: Antibodies to HCV not detected. Does not exclude the possiblity of exposure to HCV. Specimen Anatomical Collection Method / Collection Time Recei christ Time (Source) Location / Volume Laterality Blood Venipuncture / 08/15/2019 11:29 0 Unknown AM ON AWAKE COUNSELOR 11:29 AM ON AWAKE COUNSELOR Denise Davila MD LAB_1 Performing Organization Address City/State/ZIP Code Phon e Number [facility] [address] [place] [address] HBAG - Hepatitis B Surf Ag (08/15/2019 11:29 AM ON AWAKE COUNSELOR) [facility] Method Time Signature Hepatitis B Negative Negative 08/15/2019 [facility] Surface (Non (Non 4:04 PM ON AWAKE COUNSELOR LABORATORY Antigen Reactive) Reactive) Specimen Anatomical Collection Method / Collection Time Recei christ Time (Source) Location / Volume Laterality Blood Venipuncture / 08/15/2019 11:29 0 Unknown AM ON AWAKE COUNSELOR 11:29 AM ON AWAKE COUNSELOR Denise Davila MD LAB_1 Performing Organization Address City/[facility] Phon e Number [facility] [address] [place] [address] HBCB - Hepatitis B Core Antibody Total (08/15/2019 11:29 AM ON AWAKE COUNSELOR) [facility] Method Time Signature Hepatitis B Negative Negative 08/15/2019 [facility] Core Antibody (Non (Non 4:04 PM ON AWAKE COUNSELOR LABORATORY Reactive) Reactive) Specimen Anatomical Collection Method / Collection Time Recei christ Time (Source) Location / Volume Laterality Blood Venipuncture / 08/15/2019 11:29 0 Unknown AM ON AWAKE COUNSELOR 11:29 AM ON AWAKE COUNSELOR Denise Davila MD LAB_1 Performing Organization Address [facility] Phon e Number [facility] [address] [place] [address] (ABNORMAL) ESR - Sedimentation Rate (08/15/2019 11:29 AM ON AWAKE COUNSELOR) [facility] Method Time Signature Sedimentation Rate 49 (H) 0 - 20 08/15/2019 [place] mm/hr 12:21 PM ON AWAKE COUNSELOR LABORATORY Specimen Anatomical Collection Method / Collection Time Recei christ Time (Source) Location / Volume Laterality Blood Venipuncture / 08/15/2019 11:29 0 Unknown AM ON AWAKE COUNSELOR 11:29 AM ON AWAKE COUNSELOR Denise Davila MD LAB_1 Performing Organization Address [facility] Phon e Number [facility] [address] [place] [address] CRP - C Reactive Protein (08/15/2019 11:29 AM ON AWAKE COUNSELOR) athologist Signature C-Reactive 0.7 0.0 - 0.7 08/15/2019 [place] Protein mg/dL 12:26 PM ON AWAKE COUNSELOR LABORATORY Specimen Anatomical Collection Method / Collection Time Recei christ Time (Source) Location / Volume Laterality Blood Venipuncture / 08/15/2019 11:29 0 Unknown AM ON AWAKE COUNSELOR 11:29 AM ON AWAKE COUNSELOR Denise Davila MD LAB_1 Performing Organization Address [facility] Phon e Number [facility] [address] [place], [place] [address] ALT - Alanine Aminotransferase (08/15/2019 11:29 AM ON AWAKE COUNSELOR) athologist Signature ALT (SGPT) 16 0 - 55 U/L 08/15/2019 [place] 12:26 PM ON AWAKE COUNSELOR LABORATORY Specimen Anatomical Collection Method / Collection Time Recei christ Time (Source) Location / Volume Laterality Blood Venipuncture / 08/15/2019 11:29 0 Unknown AM ON AWAKE COUNSELOR 11:29 AM ON AWAKE COUNSELOR Denise Davila MD LAB_1 Performing Organization Address [facility] Phon e Number [facility] [address] [place], [place] [address] (ABNORMAL) CREAT - Creatinine (08/15/2019 11:29 AM ON AWAKE COUNSELOR) Patholo gist Method Time Signature Creatinine 1.40 (H) 0.55 - 08/15/2019 [place] 1.02 mg/dL 12:26 PM ON AWAKE COUNSELOR LABORATORY GFR, Estimated 36 (L) >60 08/15/2019 [place] mL/min/1.7 12:26 PM ON AWAKE COUNSELOR LABORATORY 3m2 GFR, Est If 41 (L) >60 08/15/2019 [place] mL/min/1.7 12:26 PM ON AWAKE COUNSELOR LABORATORY [place] 3m2 Specimen Anatomical Collection Method / Collection Time Recei christ Time (Source) Location / Volume Laterality Blood Venipuncture / 08/15/2019 11:29 0 Unknown AM ON AWAKE COUNSELOR 11:29 AM ON AWAKE COUNSELOR Denise Davila MD LAB_1 Performing Organization Address [facility] Code Phon e Number [facility] [address] [place] [address] TB Gold, Quantiferon (08/15/2019 11:27 AM ON AWAKE COUNSELOR) [facility] Method Time Signature TB Gold, Negative Negative 08/19/2019 [facility] QuantiFeron 7:49 AM ON AWAKE COUNSELOR LABORATORY Plus TB Nil Value 0.03 08/19/2019 [facility] 7:49 AM ON AWAKE COUNSELOR LABORATORY TB1 Minus Nil 0.01 08/19/2019 [facility] Value 7:49 AM ON AWAKE COUNSELOR LABORATORY TB2 Minus Nil <0.01 08/19/2019 [facility] Value 7:49 AM ON AWAKE COUNSELOR LABORATORY Mitogen Minus 6.69 08/19/2019 [facility] Nil Value 7:49 AM ON AWAKE COUNSELOR LABORATORY Specimen Anatomical Collection Method / Collection Time Recei christ Time (Source) Location / Volume Laterality Blood Venipuncture / 08/15/2019 11:27 0 Unknown AM ON AWAKE COUNSELOR 11:29 AM ON AWAKE COUNSELOR Narrative [facility] - 08/19/2019 7:49 A M ON AWAKE COUNSELOR Nil ?TB1-Nil ? TB2-Nil ?Mitogen-Nil ??Result ?Interpretation [...] Organization Address City/State/ZIP Code Phon e Number [facility] [address] [place] [address] documented in this encounter Visit Diagnoses Diagnosis Osteoarthritis of multiple joints, unspe cified osteoarthritis type - Primary Psoriasis Other psoriasis Psoriatic arthritis (HRC) Psoriatic arthropathy High risk medication use Encounter for long-term (current) use of other medications documented in this encounter Care Teams Slate Worker Relationship Specialty Start Date End Date Non Pn, Clinician, PCP - General 03/01/18 [place] [address] documented as of this encounter
--- OUTSIDE RECORDS SUMMARY | 2022-07-24 10:32 | XMS_ITS | Encounter Summary ---
:1940 Author Organization [facility] Address [address], [place] [address] Care Team Providers Name Role Phone Unavailable Primary Care Provider Unavailable Encounter Details Date Type Department Care Team Description 05/10/2005 Hospital Encounter [facility] [address] Mackenzie Christensen MD [address] [place], [place] [id number] Endoscopy Mackenzie Christensen MD [address] [place] [address] [address] [employer] [facility]. [place], [place] [address] Social History Tobacco Use Types Packs/Day Years Used Date Smoking Tobacco: Never Assessed Sex Assigned at Date Recorded Not on file documented as of this encounter Medications at Time of Discharge Medication Sig Dispensed Refills Start Date End Date levothyroxine (AKA Take 1 tablet by mouth 90 3 02/22 SYNTHROID) 112 MCG daily (every 24 hours). tablet LW Addl Instr:Indicated for: Hypothyroidism levothyroxine (AKA Take 1 tablet by mouth 90 3 05/04 SYNTHROID) 112 MCG daily (every 24 hours). tablet LW Addl Instr:Indicated for: Hypothyroidism levothyroxine (AKA Take 1 tablet by mouth 90 3 05/04 SYNTHROID) 112 MCG daily (every 24 hours). tablet LW Addl Instr:Indicated for: Hypothyroidism estrogens, conjugated, Take 1 tablet by mouth 90 3 0 02/22/2005 02/19/2006 (AKA PREMARIN) 0.3 MG daily (every 24 hours). tablet LW Addl Instr:INDICATED FOR MENOPAUSAL VASOMOTOR SYMPTOMS. estrogens, conjugated, Take 1 tablet by mouth 90 3 0 05/04/2004 02/19/2006 (AKA PREMARIN) 0.3 MG daily (every 24 hours). tablet LW Addl Instr:INDICATED FOR MENOPAUSAL VASOMOTOR SYMPTOMS. estrogens, conjugated, Take 1 tablet by mouth 90 3 0 05/04/2004 02/19/2006 (AKA PREMARIN) 0.3 MG daily (every 24 hours). tablet LW Addl Instr:INDICATED FOR MENOPAUSAL VASOMOTOR SYMPTOMS. furosemide (AKA LASIX) Take 1 tablet by mouth 90 3 0 02/22/2005 02/19/2006 20 MG tablet daily (every 24 hours). furosemide (AKA LASIX) Take 1 tablet by mouth 90 3 0 05/04/2004 02/19/2006 20 MG tablet daily (every 24 hours). furosemide (AKA LASIX) Take 1 tablet by mouth 90 3 0 05/04/2004 02/19/2006 20 MG tablet daily (every 24 hours). lisinopril (AKA Take 1 tablet by mouth 90 3 02/23/20 05 02/19/2006 ZESTRIL) 40 MG tablet daily (every 24 hours). LW Addl Instr:Indicated for: High Blood Pressure lisinopril (AKA Take 1 tablet by mouth 90 3 05/04/20 04 02/19/2006 ZESTRIL) 40 MG tablet daily (every 24 hours). LW Addl Instr:Indicated for: High Blood Pressure UNKNOWN MEDICATION Indications: PN: 0 02/22/2005 04/04/2006 UNKNOWN MEDICATION Indications: PN: 0 05/04/2004 04/04/2006 Acetaminophen 650 MG Take 1-2 tablets by 50 12 200403/29/2018 mouth every 8 hours as needed. LW Addl Instr:Maximum of 6 tablets/24 hours. documented as of this encounter Procedure Notes Mackenzie Christensen MD - 05/10/2005 12:01 AM CDT Procedures signed by Mackenzie Christensen MD at 05/10/05912 Author: Mackenzie Christensen MD Service: (none) Author Type: Physician Filed: 12/02/10 0723 Note Time: 05/10/05839 Status: Signed Rounder Hand: Mackenzie Christensen MD (Physician) Patient Name: Princess Samuels Procedure: Colonoscopy Indications: Follow-up of colon polyps - see chart review 02/2005 Providers: Mackenzie Christensen MD Referring MD: Mackenzie Christensen MD Medicines: Midazolam 3 mg IV, Fentanyl 200 mcg IV Complications: No immediate complications Procedure: After I obtained informed consent, the scope was passed under direct vision. Throughout the procedure, the patient's blood pressure, pulse, and oxygen saturations were monitored continuously. The Colonoscope was introduced through the anus and advanced to the hepatic flexure. The patient tolerated the procedure . Findings: The entire examined colon was normal other than some diverticuli. Impression: - The colon is normal. Recommendation: - Repeat colonoscopy in 10 years for surveillance unless can document previous polyp in 1994 was greater than 1 cm adenoma. CPT4 Code(s): 11232, Colonoscopy, flexible, proximal to splenic flexure; diagnostic, with or without collection of specimen(s) by brushing or washing, with or without colon decompression (separate procedure) ICD9 Code(s): V67.59, OTHER FOLLOW-UP EXAMINATION The codes documented in this report are preliminary and upon aligner review may be revised to meet current compliance requirements. Mackenzie Christensen MD Signed Date: 05/10/2005 09:13:13 AM This document has been electronically signed. Note initiated on 05/10/2005 08:41:57 AM documented in this encounter Plan of Treatment Upcoming Encounters Date Type Specialty Care Team Description 09/29/2022 Appointment Rheumatology Kal Davila MD [address] [address] (Wo rk) documented as of this encounter Visit Diagnoses Not on filedocumented in this encounter
--- OUTSIDE RECORDS SUMMARY | 2022-07-24 10:32 | XMS_ITS | Encounter Summary ---
:1940 Author Organization [facility] Address [address], [place] [address] Care Team Providers Name Role Phone Radha Martinez MD Primary Care Provider Encounter Details Date Type Department Care Team Description 05/10/2005 PN Conversion Only CONV GASTROENTEROLOG Y Mackenzie Christensen MD [address] [facility] [place] [address] [address] [place], [place] [phone] Social History Tobacco Use Types Packs/Day Years Used Date Smoking Tobacco: Never Assessed Sex Assigned at Date Recorded Not on file documented as of this encounter Plan of Treatment Upcoming Encounters Date Type Specialty Care Team Description 09/29/2022 Appointment [facility]umatology [facility] [address] [facility] [id number] (Wo rk) documented as of this encounter Visit Diagnoses Not on filedocumented in this encounter Care Teams Art Department Head Relationship Specialty Start Date End Date Radha Martinez MD PCP - General 11/13/10 02/28/18 [address] [place] [address] documented as of this encounter
--- OUTSIDE RECORDS SUMMARY | 2022-07-24 10:32 | XMS_ITS | Encounter Summary ---
:1940 Author [facility] Address [address] [address] Care Team Providers Name Role Phone Radha Martinez MD Primary Care Provider Encounter Details Date Type Department Care Team Description 05/10/2005 Notes/Orders CONVERSION CONVERSION Conversion , User GTS YVONNE CALDERÓN [id number] Social History Tobacco Use Types Packs/Day Years Used Date Smoking Tobacco: Never Assessed Sex Assigned at Date Recorded Not on file documented as of this encounter Plan of Treatment Upcoming Encounters Date Type Specialty Care Team Description 09/29/2022 Appointment Rheumatology Kal Davila MD [address] [facility] [address] [address] (Wo rk) documented as of this encounter Procedures Procedure Name Priority Date/Time Associated Diagnosis Comme nts ENDOSCOPY, COLON, Routine 05/10/2005 6:48 PM CDT SCREENING/DIAGNOSTIC documented in this encounter Results Endoscopy, colon, diagnostic (05/10/2005 6:48 PM CDT) Specimen (Source) Anatomical Location Collection Method / Collectio n Time Received Time / Laterality Volume User Conversion PN GI PROCEDURE ORDERABLES Performing Organization Address City/State/ZIP Code Phon e Number HP CONVERSION documented in this encounter Visit Diagnoses Not on filedocumented in this encounter Care Teams Crop [place] Hand Relationship Specialty Start Date End Date Radha Martinez MD PCP - General 11/13/10 02/28/18 [address] [place] [address] documented as of this encounter
--- OUTSIDE RECORDS SUMMARY | 2022-07-24 10:32 | XMS_ITS | Encounter Summary ---
:1940 [facility] Address [address], [place] [address] Care Team Providers Name Role Phone Liset Martinez MD Primary Care Provider Encounter Details Date Type Department Care Team Description 02/22/2005 Office Visit [facility] Jolynn Martinez MD [id number] [place] [address] [phone] Social History Tobacco Use Types Packs/Day Years Used Date Smoking Tobacco: Never Assessed Sex Assigned at Date Recorded Not on file documented as of this encounter Progress Notes Liset Martinez MD - 02/22/2005 12:01 AM CDT H&P signed by Liset Martinez MD at 04/29/052051 Author: Liset Martinez MD Service: (none) Author Type: Physician Filed: 12/02/10 06 Note Time: 02/22/05 0001 Status: Signed Yard Pilot: Liset Martinez MD (Physician) NAME: NINA SAMUELS MR: [id number] ACCT: [id number] VISIT: [id number] DICTATING CLINICIAN: LISET MARTINEZ MD JOB: [id number] CLINIC PHYSICAL DATE OF VISIT: 02/22/2005 SUBJECTIVE: : 1940. A 64-year-old for welcome to Medicare physical. Has had hysterectomy and bilateral oophorectomy in 1971 for endometriosis. No history of abnormal Paps. Does self breast exam, no change noted. Remote history of lumpectomy. She has been estrogen since 1972. Sexually active, denies risk for STD. Golfs weekly and walks weekly. Weight stable. Does have advanced directive. Colonoscopy three or four years ago. This was at [facility]. She states there were no polyps and believes she was told a repeat was needed in 10 years. Normal bone density in 2000. Tetanus in 1997. No pneumonia vaccine. She has had hypertension. We increased lisinopril at her last visit. Blood pressures have improved. She notes no side-effects. She has hypothyroidism. She is on Synthroid 0.112 mg daily. She also takes Lasix daily. SOCIAL HISTORY: . Three children. Lives in [place]. 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 No domestic abuse. HABITS: Rare alcohol, no tobacco. FAMILY HISTORY: Positive for heart disease, hyperlipidemia, renal cell carcinoma, hypothyroidism, hypertension. ADR/ALLERGIES: REVIEWED, SEE TODAY'S LASTWORD. MEDICATIONS: Reviewed, see today's LastWord. PAST MEDICAL HISTORY: Reviewed and updated, see today's LastWord. REVIEW OF SYSTEMS: No depression or anxiety. No falls. No pain or nutritional needs identified. She had a cardiac workup about five years ago which was completely negative. OBJECTIVE: VS: BP: 120/82. P: 72. Ht. 65-1/2 in. Wt: 209. GENERAL: She is an overweight female in no distress. EYES: There is no icterus or injection. The pupils are equal, round, and reactive. ENT: Tympanic membranes, nasal mucosa, and oropharynx appear clear. NECK: No thyromegaly, thyroid nodule, lymphadenopathy, carotid bruits. LUNGS: Clear posteriorly. CARDIOVASCULAR: Regular rate and rhythm with no gallops, murmurs, or rubs appreciated. 2/4 radial and dorsalis pedis pulse bilaterally. No lower extremity edema. BREASTS: Breasts appear normal. No skin changes, masses, axillary or supra or clavicular lymphadenopathy. ABDOMEN: Bowel sounds present. No masses or hepatosplenomegaly. GENITOURINARY: The external genitalia appears normal. Vaginal mucosa and vaginal cuff appears normal, vaginal cuff scraping completed. Uterus and adnexa absent on bimanual examination. RECTAL: Normal rectal tone. No masses. PSYCHIATRIC: Appropriate mood and affect. ASSESSMENT: 1. Physical exam. 2. Hypertension. 3. Overweight. 4. Hypothyroidism. 5. Hormone replacement. PLAN: 1. Physical exam: Pelvic exam. Vaginal cuff scraping, clinical breast exam completed. Recommended a monthly self breast exam. Schedule annual mammogram. Has a colonoscopy scheduled in 2004 in April already. Increase her walking program with a goal for weight loss. Check cholesterol fractionation, A1C, glucose. EKG today. Shows normal sinus rhythm and chronic right bundle branch block, reviewed with patient today. Pneumonia vaccine. 2. Check sodium, potassium, BUN, creatinine. Continue lisinopril and Lasix. 3. Continue Levoxyl. Check TSH. 4. Check B12 level for some intermittent foot paresthesia. 5. Continue on Premarin for now, she does not wish to discontinue as she got somewhat campos when she went to every other day. SME:[id number] C: 02/23/05 08:16 DOCUMENT: [id number] documented in this encounter Plan of Treatment Upcoming Encounters Date Type Specialty Care Team Description 09/29/2022 Appointment Rheumatology Kal Davila MD [address] [facility] N [address] (Wo rk) documented as of this encounter Procedures Procedure Name Priority Date/Time Associated Diagnosis Comme nts ECG 12 LEAD CLINIC Routine 02/22/2005 10:54 AM Re sults for this CDT procedure are i n the results section. documented in this encounter Results ECG 12 lead clinic (02/22/2005 10:54 AM CDT) Specimen (Source) Anatomical Collection Method Collection Time Re ceived Time Location / / Volume Laterality 02/22/2005 10:54 AM CDT Narrative HP CONVERSION - 02/22/2005 10:54 AM CDT Normal sinus rhythm Right bundle branch block T ??wave abnormality (ies) ??over infer ior wall Abnormal ECG No previous ECGs available Imr Conversion PN ECG ORDERABLES Performing Organization Address City/State/ZIP Code Phon e Number HP CONVERSION documented in this encounter Visit Diagnoses Not on filedocumented in this encounter Care Teams Manager Test Relationship Specialty Start Date End Date Liset Martinez MD PCP - General 11/13/10 02/28/18 [address] [place] [address] documented as of this encounter
--- OUTSIDE RECORDS SUMMARY | 2022-07-24 10:32 | XMS_ITS | Encounter Summary ---
:1940 Author Organization [facility] Address [address] [place] [address] Care Team Providers Name Role Phone Radha Martinez MD Primary Care Provider Encounter Details Date Type Department Care Team Description 05/02/2005 PN Conversion Only [facility] [address] [place] [address] Social History Tobacco Use Types Packs/Day Years Used Date Smoking Tobacco: Never Assessed Sex Assigned at Date Recorded Not on file documented as of this encounter Plan of Treatment Upcoming Encounters Date Type Specialty Care Team Description 09/29/2022 Appointment Rheumatology Kal Davila MD [address] [facility] [address] [address] (Wo rk) documented as of this encounter Procedures Procedure Name Priority Date/Time Associated Diagnosis Comme nts MM MAMMOGRAM Routine 05/02/2005 2:03 PM Results f or this SCREENING W CAD CDT procedure ar e in the results section. documented in this encounter Results MM Mammogram Screening W CAD (05/02/2005 2:03 PM CDT) Anatomical Region Laterality Modality Breast Bilateral Mammography Specimen (Source) Anatomical Location Collection Method / Collectio n Time Received Time / Laterality Volume Impressions 05/05/2005 9:30 AM CDT : BILATERAL BREAST - CATEGORY 2 Punctate and vascular calcifications. Be nign, no evidence of malignancy. Normal interval follow-up is recommended in 12 months. OVERALL ASSESSMENT - BENIGN END OF IMPRESSION Dictating PACO CROWE RADIOLOGIST Narrative 05/05/2005 9:30 AM CDT Comparison is made to films from 12/22/2002. ??There is no significant interval change. Bilateral Breast Findings: The breasts are heterogeneously dense. T his may lower the sensitivity of mammography. ??Punctate and vascular calcifications are present. Procedure Note Paco Layne - 10/13/2016Formattin g of this note might be different from the original. Comparison is made to films from 003. There is no significant interval change. Bilateral Breast Findings: The breasts are heterogeneously dense. T his may lower the sensitivity of mammography. Punctate and vascular ca lcifications are present. IMPRESSION : BILATERAL BREAST - CATEGORY 2 Punctate and vascular calcifications. Be nign, no evidence of malignancy. Normal interval follow-up is recommended in 12 months. OVERALL ASSESSMENT - BENIGN END OF IMPRESSION Dictating PACO CROWE RADIOLOGIST Radha Martinez MD RAD AMBER documented in this encounter Visit Diagnoses Not on filedocumented in this encounter Care Teams Refrigerator Repairman Relationship Specialty Start Date End Date Radha Martinez MD PCP - General 11/13/10 02/28/18 [address] [place] [address] documented as of this encounter
--- OUTSIDE RECORDS SUMMARY | 2022-07-24 10:32 | XMS_ITS | Encounter Summary ---
:1940 Author Organization [facility] Address [address], [place] [address] Care Team Providers Name Role Phone Liset Martinez MD Primary Care Provider Reason for Visit Reason Comments Other Encounter Details Date Type Department Care Team Description 05/17/2004 Telephone [facility] Deisi Tavarez [address] [place] [address] Social History Tobacco Use Types Packs/Day Years Used Date Smoking Tobacco: Never Assessed Sex Assigned at Date Recorded Not on file documented as of this encounter Progress Notes Neeta Bowen - 05/17/2004 9:04 AM CDT Phone Note filed by Neeta Bowen MA at 11/28/10 9044 Author: Neeta Bowen MA Service: (none) Author Type: (none) Filed: 11/28/10 1434 Note Time: 05/17/04 0904 Status: Signed Butadiene Convertor Operator: Neeta Bowen MA (Corporate Physical Security Supervisor) Pt calling because she would like a replacement for Vioxx. She uses a mail-in pharmacy so would like a script sent to her home. She can be reached at [phone]. Created on 17May2004 9:04am by NEETA BOWEN On 17May2004 9:14am LISET MARTINEZ wrote: try tylenol 1000mg qid prn or celebrex 200mg bid prn, rx printed. se Acknowledged by LISET MARTINEZ on 9:14am On 17May2004 9:52am DEISI TAVAREZ wrote: Spoke to Princess, suggested that she try the Celebrex for a few weeks before getting prescription from Mail order, in case it does not work or she reacts to it. Would like the mail order prescription at same time as 30 day prescription. Please send these to her home. Acknowledged by DEISI TAVAREZ on 9:52am On 17May2004 10:01am LISET MARTINEZ wrote: rx for #180 printed. se Acknowledged by LISET MARTINEZ on 10:01am On 17May2004 10:15am DEISI TAVAREZ wrote: Prescriptions mailed to patient. Acknowledged by DEISI TAVAREZ on 10:15am documented in this encounter Plan of Treatment Upcoming Encounters Date Type Specialty Care Team Description 09/29/2022 Appointment Rheumatology Kal Davila MD [address] [facility] [id number] (Wo rk) documented as of this encounter Visit Diagnoses Not on filedocumented in this encounter Care Teams Remote Encoding Center Manager Relationship Specialty Start Date End Date Liset Martinez MD PCP - General 11/13/10 02/28/18 [address] [place] [address] documented as of this encounter
--- OUTSIDE RECORDS SUMMARY | 2022-07-24 10:32 | XMS_ITS | Encounter Summary ---
:1940 Author Organization [facility] Address [address] [place] [address] Care Team Providers Name Role Phone Radha Martinez MD Primary Care Provider Encounter Details Date Type Department Care Team Description 06/16/2003 PN Conversion Only [facility] [place] [id number] [facility] [place] [address] [place], [place] [address] (Wo rk) Social History Tobacco Use Types Packs/Day Years Used Date Smoking Tobacco: Never Assessed Sex Assigned at Date Recorded Not on file documented as of this encounter Progress Notes Wilder Angel MD - 06/16/2003 12:01 AM CST Progress Notes signed by Widler Angel MD at 06/30/03 1209 Author: Wilder Angel MD Service: (none) Author Type: Physician Filed: 12/01/10 1653 Note Time: 06/16/03 0001 Status: Signed Rotoformer Backtender: Wilder Angel MD (Physician) NAME: NINA SAMUELS MR: [id number] ACCT: [id number] VISIT: [id number] DICTATING CLINICIAN: WILDER ANGEL MD JOB: [id number] CLINIC PROGRESS NOTE DATE OF VISIT: 06/16/2003 SUBJECTIVE: The patient is seen for follow up of her left thumb fracture. She reports she still has some discomfort. OBJECTIVE: There is moderate limitation of the interphalangeal joint range of motion. Clinical alignment is normal. Ligaments are stable. ASSESSMENT: Left thumb fracture. PLAN: I recommend that she discontinue use of the splint at this point and work on her range of motion. Follow up in four weeks if she is having ongoing symptoms. TT: CT: [id number] C: 06/30/03 09:18 DOCUMENT: [id number] F MARKETING OFFICER Phone Note, Clinician - 06/08/2003 12:01 AM CST Phone Note filed by Clinician Phone Note at 11/29/10 2484 Author: Clinician Phone Note Service: (none) Author Type: Resource Filed: 11/29/10 1227 Note Time: 06/08/03 0001 Status: Signed Rotoformer Backtender: Clinician Phone Note (Resource) TO: RADHA MARTINEZ FROM: CALDERON MAS [phone] 06/08/03 * PROVIDER MESSAGE: ROUTINE * 09:12AM * *WITHIN 4 HOURS * MESSAGE: pt calling for refill of * HOME PHONE:[phone] * lisinopril 20 mg. Forgot to get it * WORK PHONE:[phone] * last time she saw you. Needs 2 * CONTACT PHONE:[phone] * scripts. One for here and one for away. 90 da y-6 month supply. Will be here to pick-up. Please advise. SUBJECTIVE: ALLERGIES/SENSITIVITIES... Darvon; no other allergies 11/14/99 12/09/02 CURRENT MEDICATIONS... Premerin; Synthroid; Lasix 20mg prn 11/14/99 12/09/02 PERTINENT PAST HISTORY... HYPOTHYROIDISM; HTN; HYSTERECTOMY 1986 11/14/99 12/09/02 WEIGHT: ASSESSMENT: pt refill PLAN: DISPOSITION: NO DISPOSITION GIVEN CALL BY CALDERON MAS 06/08/2003 09:09AM [phone] ADDENDUM: <> 06/08/2003 11:37AM by LAURA TAVAREZ RN: Prescritpions for the following written by Dr. Martinez for: Lisinopr il 20mg, 1 tablet daily #90 with 2 refills. @ identical prescriptions were written. Prescriptions left at legal secretary receptionist desk for Nina to picker feeder. Nina notified. Radha Dudley MD - 06/05/2003 12:01 AM CDT Progress Notes signed by Radha Martinez MD at 08/13/03 1907 Author: Radha Martinez MD Service: (none) Author Type: Physician Filed: 12/01/10 1642 Note Time: 06/05/03 0001 Status: Signed Rotoformer Backtender: Radha Martinez MD (Physician) NAME: NINA SAMUELS MR: [id number] ACCT: [id number] VISIT: [id number] DICTATING CLINICIAN: RADHA MARTINEZ MD JOB: [id number] CLINIC PROGRESS NOTE DATE OF VISIT: 06/05/2003 SUBJECTIVE: : 1940. HISTORY: A 63-year-old female here in followup of edema, hypothyroidism, arthritis, hormone replacement therapy. She is needing a refill on all of her medications today, and she will be going to [place] for six months, so she needs two separate prescriptions. She is currently on Synthroid 0.112 mg p.o. q. day, and this was recently decreased from 0.125. Her followup labs in 02/12 showed TSH 1.29. She is feeling well on this dose. She has had a history of edema since 1972. She has been on Lasix once daily. She has never been on potassium supplement. She does not feel she currently has edema. She does have some hypertension also, although this is not the original reason for her starting on that medication. She complains of some fatigue and generally feeling tired. She had evaluation for this a couple of years back which showed normal echocardiogram in . After this, she ended up getting an angiogram, which she said was normal. She also had some lung scans, and everything looked good per her report. She has a history of osteoarthritis, and she has been using Vioxx 25 mg p.r.n. with very good results. This seems to help her. 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 She is on Premarin 0.625 mg p.o. q. day. She has been on this since 1972, when she had a hysterectomy and bilateral oophorectomy for endometriosis. She did have some hot flashes once when she went off it for a few days. She wonders if she should continue on it and would be willing to try weaning. TOBACCO USE: None. MEDICATIONS: Synthroid 0.112 mg p.o. q. day, Lasix 20 mg p.o. q. day, Premarin 0.625 mg p.o. q. day, lisinopril 20 mg p.o. q. day, Vioxx 25 mg p.o. q. day p.r.n. ADR/ALLERGIES: SULINDAC, DARVON. OBJECTIVE: VS: BP: 140/74. P: 84. Wt: 204 lb. GENERAL: She is a white female who is in no distress. EYES: There is no icterus or injection. NECK: No carotid bruits. No lymphadenopathy, thyromegaly. LUNGS: Clear posteriorly. CARDIOVASCULAR: Regular rate and rhythm, without gallops, murmurs or rubs. She has 2/4 radial artery and dorsalis pedis pulses bilaterally. There is no lower extremity edema. ABDOMEN: Bowel sounds present. Abdomen soft. PSYCHIATRIC: Patient has appropriate mood and affect. ASSESSMENT: 1. Hypothyroidism. 2. Hypertension. 3. Lower extremity edema. 4. Degenerative joint disease. 5. Fatigue. 6. Hormone replacement. PLAN: 1. She will continue on current Synthroid dose, two prescriptions written, one for [place], one for [facility]. 2. Continue on Lasix at current dose. Check sodium, potassium, BUN, creatinine. 3. Regarding her fatigue, plan to check hemoglobin A1c, glucose, CBC. 4. She will have a flu shot today. 5. Recommend she have cholesterol fractionation. 6. Discussed hormone replacement therapy. Plan will be to try to wean her off. If she has no symptoms of menopause, then she would continue off the medication. She did have a normal bone density recently. I wrote her a prescription for Premarin 0.3 mg p.o. q. day. She will take this for one month, then take every other day, then take every third day for a month. After that, if she is doing well she would discontinue. I also wrote her a prescription for Premarin 0.625 mg in case she decides to continue on current medication. I did discuss this with her. TT: CT: [id number] C: 06/06/03 07:51 DOCUMENT: [id number] F MARKETING OFFICER Wilder Angel MD - 05/28/2003 12:01 AM CDT Progress Notes signed by Wilder Angel MD at 05/31/03 1903 Author: Wilder Angel MD Service: (none) Author Type: Physician Filed: 12/01/10 1633 Note Time: 05/28/03 0001 Status: Signed Rotoformer Backtender: Wilder Angel MD (Physician) NAME: NINA SAMUELS MR: [id number] ACCT: [id number] VISIT: [id number] DICTATING CLINICIAN: WILDER ANGEL MD JOB: [id number] CLINIC PROGRESS NOTE DATE OF VISIT: 05/28/2003 SUBJECTIVE: The patient is seen for a new problem. She had fallen while golfing on 05/06/2003 landing on her knees. Initially she was concerned about her knee replacement. However, she found that she had pain in the thumb. She was seen in urgent care and x-rays were taken which demonstrated a fracture. She was placed in a splint. She reports she continued to have pain localized to the interphalangeal joint. OBJECTIVE: There is mild swelling of the left thumb. There is some diffuse tenderness about the interphalangeal joint. Clinical alignment is normal. Sensation, motor function and circulation are intact. X-rays show a nondisplaced fracture at the base of the distal phalanx. ASSESSMENT: Left thumb fracture. PLAN: This appears to be a stable injury. She was fitted with a Stax splint and will return for followup in 2 weeks time for examination of the thumb. TT: CT: [id number] C: 05/31/03 13:22 DOCUMENT: [id number] Kevin Hernandez MD - 05/12/2003 12:01 AM CDT Progress Notes signed by Kevin Hernandez MD at 05/08/04 0934 Author: Kevin Hernandez MD Service: (none) Author Type: Physician Filed: 12/01/10 1615 Note Time: 05/12/03 0001 Status: Signed Rotoformer Backtender: Kevin Hernandez MD (Physician) NAME: NINA SAMUELS MR: [id number] ACCT: [id number] VISIT: [id number] DICTATING CLINICIAN: KEVIN HERNANDEZ MD JOB: [id number] CLINIC PROGRESS NOTE DATE OF VISIT: 05/12/2003 SUBJECTIVE: The patient was golfing last Sunday in some tall grass, stepped into a low spot or hole that she was not aware of. She lost her balance, went down, and hit her right thumb. She is noting continued pain and swelling in the thumb and is here for additional treatment and recommendation. She initially was more worried about her knees, which she has both had replaced. These seem to be doing okay, not having any continued pain there. CURRENT MEDICATIONS: Include Synthroid, something for blood pressure, Premarin, and Vioxx. ADR/ALLERGIES: LISTED DARVON, UNSPECIFIED REACTION. OBJECTIVE: VS: BP: 138/88. T: 97.0. P: 72. R: 16. The patient is walking without a limp. The right thumb is swollen and bruised appearing, mostly along the metacarpophalangeal joint and more on the thenar aspect. No tenderness into the wrist. No tenderness along the elbow. Good range of motion of the shoulder. X-ray is ordered and reviewed of the thumb and shows a slight fracture of that proximal phalanx, not significantly displaced. ASSESSMENT: 1. Fractured thumb. 2. Pain in the hand. PLAN: Is fitted with a thumb spica splint, fiberglass padded fashion. Instructed on the use of that. Will get a follow-up visit for further treatment and recommendations with ortho. She has seen Dr. Angel before and preferred to see him again. Recheck sooner p.r.n. TT: CT: [id number] C: 05/13/03 07:23 DOCUMENT: [id number] Phone Note, Clinician - 04/02/2003 12:01 AM CDT Phone Note signed by Radha Martinez MD at 04/04/03 1627 Author: Clinician Phone Note Service: (none) Author Type: Resource Filed: 06/16/03 0000 Note Time: 04/02/032022 Status: Signed Rotoformer Backtender: Clinician Phone Note (Resource) TO: RADHA MARTINEZ FROM: LAURA TAVAREZ RN [phone] * PROVIDER MESSAGE: ROUTINE * 04/02/03 08:33AM * *WITHIN 4 HOURS * MESSAGE: Patient is calling to * HOME PHONE:[phone] * request a written prescription for * WORK PHONE:[phone] * her Synthroid 0.112mg to mail to pharmacy, 90 day RX with refills please. When RX is ready mail to her home address. SUBJECTIVE: ALLERGIES/SENSITIVITIES... Darvon; no other allergies 11/14/99 12/09/02 CURRENT MEDICATIONS... Premerin; Synthroid; Lasix 20mg prn 11/14/99 12/09/02 PERTINENT PAST HISTORY... HYPOTHYROIDISM; HTN; HYSTERECTOMY 1986 11/14/99 12/09/02 WEIGHT: ASSESSMENT: Synthroid prescription PLAN: DISPOSITION: NO DISPOSITION GIVEN CALL BY LAURA TAVAREZ RN 04/02/2003 08:32AM [id number] ADDENDUM: <> 04/02/2003 10:11AM by SARAH MADDEN LPN: Written rx by Dr Mcintosh mailed to pt home. F MARKETING OFFICER Radha Martinez MD - 12/26/2002 12:01 AM CDT Progress Notes signed by Radha Martinez MD at 01/15/03 1854 Author: Radha Martinez MD Service: (none) Author Type: Physician Filed: 12/01/10 1409 Note Time: 12/26/02 0001 Status: Signed Rotoformer Backtender: Radha Martinez MD (Physician) NAME: NINA SAMUELS MR: [id number] ACCT: [id number] VISIT: [id number] DICTATING CLINICIAN: RADHA MARTINEZ MD JOB: [id number] CLINIC PROGRESS NOTE DATE OF VISIT: 12/26/2002 SUBJECTIVE: The patient here for follow up of hypothyroidism. She has been on 0.125 mg Synthroid daily. She takes it in the morning prior to eating every day. She was in [place] for a few months, she had her thyroid test followed up there in September which showed TSH 0.16, low, and free T4 1.62, very high normal range. She has lost ten pounds and is feeling well. ADR/ALLERGIES: DARVON AND SULINDAC. OBJECTIVE: VS: BP: 130/80. P: 56. WT: 201 lb. GENERAL: She is a white female in no distress. CARDIOVASCULAR: Regular rate and rhythm. ASSESSMENT: Hypothyroidism. PLAN: Plan to decrease Synthroid dose to 0.112 mg p.o. q. day, number 90 with no refills. She will follow up for a free T4 and TSH level four weeks after starting her new medication. TT: CT: [id number] C: 12/28/02 11:46 DOCUMENT: [id number] Phone Note, Clinician - 12/24/2002 12:01 AM CDT Phone Note filed by Clinician Phone Note at 11/29/101116 Author: Clinician Phone Note Service: (none) Author Type: Resource Filed: 11/29/101116 Note Time: 12/24/02 0001 Status: Signed Rotoformer Backtender: Clinician Phone Note (Resource) SUBJECTIVE: ALLERGIES/SENSITIVITIES... Darvon; * HOME PHONE:[phone] * no other allergies 11/14/99 * WORK PHONE:[phone] * 12/09/02 CURRENT MEDICATIONS... Premerin; Synthroid; Lasix 20mg prn 11/14/99 12/09/02 PERTINENT PAST HISTORY... HYPOTHYROIDISM; HTN; HYSTERECTOMY 1986 11/14/99 12/09/02 ASSESSMENT: Regarding Synthroid rx DISPOSITION: NO DISPOSITION GIVEN PLAN: [facility] [place]... The patient called in stating that she was told to have her recent lab work (which was done in [place]) faxed to Dr Martinez so that she can write out a new synthroid rx for the patient. The number of the the patient's medical facility in [place] is [phone]. The pt would like her rx mailed to her right away (she does mail order rx's). She stated the medical facility in [place] was refaxing the info today . She would like the rx mailed to her CLARISA because she has been waiting a long time. CALL BY FABI RANDOLPH LPN 12/24/2002 08:12AM ADDENDUM: F MARKETING OFFICER documented in this encounter Plan of Treatment Upcoming Encounters Date Type Specialty Care Team Description 09/29/2022 Appointment Rheumatology Kal Davila MD [address] [address] (Wo rk) documented as of this encounter Procedures Procedure Name Priority Date/Time Associated Diagnosis Comme nts XR FINGER RT THUMB Routine 05/12/2003 10:57 AM Re sults for this 2+ VIEWS CDT procedure are i n the results section. MM MAMMOGRAM DIAG Routine 12/22/2002 2:15 PM Resu lts for this BILAT W CAD CDT procedure are i n the results section. documented in this encounter Results XR Finger Rt Thumb 3 Views (05/12/2003 10:57 AM CDT) Anatomical Region Laterality Modality Upper Extremity, Hand Other Specimen (Source) Anatomical Location Collection Method / Collectio n Time Received Time / Laterality Volume Narrative 05/12/2003 10:57 AM CDT There is a faint lucency involving the terminal tuft of the thumb which may represent an undisplaced fract ure. ??Slight degenerative change of the first metacarpophalangeal joint is noted manifested by slight narrowing of the joint space with minimal spurring along the articular margins. ??Degenerative change of the first carpometacarpal articulation is noted with loss of the j oint space and spurring along the articular margins. ??There is slight irregularity of the articular surface of the distal phalanx with no di stinct fracture line identified. CONCLUSIONS: ? 1. ?? Probable ?undisplace d fracture of the terminal tuft of the thumb. ? 2. ?? Degenerative ?change s as described. Pls - [id number] Dictating CED REYES RADIOLOGIST Procedure Note Ced Rubio - 10/15/2016 There is a faint lucency involving the t erminal tuft of the thumb which may represent an undisplaced fract ure. Slight degenerative change of the first metacarpophalangeal joint is noted manifested by slight narrowing of the joint space with minimal spurring along the articular margins. Degenerative change o f the first carpometacarpal articulation is noted with loss of the j oint space and spurring along the articular margins. There is slight i rregularity of the articular surface of the distal phalanx with no di stinct fracture line identified. CONCLUSIONS: 1. Probable undisplaced fracture of the terminal tuft of the thumb. 2. Degenerative changes as described. Pls - [id number] Dictating CED REYES RADIOLOGIST Kevin Hernandez MD RAD GD MM Mammogram Diag Bilat W CAD (12/22/2002 2:15 PM CDT) Anatomical Region Laterality Modality Breast Bilateral Mammography Specimen (Source) Anatomical Location Collection Method / Collectio n Time Received Time / Laterality Volume Impressions 12/22/2002 2:15 PM CDT : ?ACR-BIRADS CATEGORY 2: BENIGN FIND ING. FINDINGS: ?COMPARED TO 11/30/01, THERE HAS BEE N LITTLE CHANGE. ??BOTH ?BREASTS REMAIN MODERATELY DENSE BI LATERALLY. ??SCATTERED ?MICROCALCIFICATIONS ALSO UNCHANGED . ??NO MAMMOGRAPHIC ?EVIDENCE OF MALIGNANCY. ?JOB #[id number] - MT(120)/MSF SEVERITY: 1 Narrative 12/22/2002 2:15 PM CDT CLINICAL DATA: PREVIOUS F/U SEV OF 2 ON RSLT# [id number] ?THREE TO SIX MON TH FOLLOW UP NEEDED Procedure Note Koko Holder MD - 10/15/2016 CLINICAL DATA: PREVIOUS F/U SEV OF 2 ON RSLT# [id number] THREE TO SIX MONTH FOLLOW UP NEEDED IMPRESSION : ACR-BIRADS CATEGORY 2: BENIGN FINDING. FINDINGS: COMPARED TO 11/30/01, THERE HAS BEEN LIT TLE CHANGE. BOTH BREASTS REMAIN MODERATELY DENSE BILATER ALLY. SCATTERED MICROCALCIFICATIONS ALSO UNCHANGED. NO MAMMOGRAPHIC EVIDENCE OF MALIGNANCY. JOB #[id number] - MT120)/MSF SEVERITY: 1 Radha Martinez MD RAD AMBER documented in this encounter Visit Diagnoses Not on filedocumented in this encounter Care Teams Defense Analyst Relationship Specialty Start Date End Date Radha Martinez MD PCP - General 11/13/10 02/28/18 [address] [place] [address] documented as of this encounter
--- OUTSIDE RECORDS SUMMARY | 2022-07-24 10:32 | XMS_ITS | Encounter Summary ---
:1940 Author Organization [facility] Address [address], [place] [address] Care Team Providers Name Role Phone Radha Martinez MD Primary Care Provider Encounter Details Date Type Department Care Team Description 04/21/2004 PN Conversion Only [facility] [address] [place] [address] Social History Tobacco Use Types Packs/Day Years Used Date Smoking Tobacco: Never Assessed Sex Assigned at Date Recorded Not on file documented as of this encounter Plan of Treatment Upcoming Encounters Date Type Specialty Care Team Description 09/29/2022 Appointment Rheumatology Kal Davila MD [address] [facility] [address] [address] (Wo rk) documented as of this encounter Procedures Procedure Name Priority Date/Time Associated Diagnosis Comme nts MM MAMMOGRAM Routine 04/21/2004 11:36 AM Results for this SCREENING W CAD CDT procedure ar e in the results section. documented in this encounter Results MM Mammogram Screening W CAD (04/21/2004 11:36 AM CDT) Anatomical Region Laterality Modality Breast Bilateral Mammography Specimen (Source) Anatomical Location Collection Method / Collectio n Time Received Time / Laterality Volume Impressions 04/25/2004 2:28 PM CDT : BILATERAL BREASTS - Category 1 Negative, no evidence of malignancy. Nor mal interval follow-up is recommended in 12 months. OVERALL ASSESSMENT - NEGATIVE END OF IMPRESSION Dictating KOKO GREEN RADIOLOGIST Narrative 04/25/2004 2:28 PM CDT Comparison is made to films from 06/17/2002. Bilateral Breast Findings: The breasts are heterogeneously dense. T his may lower the sensitivity of mammography. ??No significant masses, calcifications or other abnormalities are seen. Procedure Note Koko Holder MD - 10/15/2016 Comparison is made to films from 002. Bilateral Breast Findings: The breasts are heterogeneously dense. T his may lower the sensitivity of mammography. No significant masses, c alcifications or other abnormalities are seen. IMPRESSION : BILATERAL BREASTS - Category 1 Negative, no evidence of malignancy. Nor mal interval follow-up is recommended in 12 months. OVERALL ASSESSMENT - NEGATIVE END OF IMPRESSION Dictating KOKO GREEN RADIOLOGIST Radha Martinez MD RAD AMBER documented in this encounter Visit Diagnoses Not on filedocumented in this encounter Care Teams Men'S Leather Dress Belt Maker Relationship Specialty Start Date End Date Radha Martinez MD PCP - General 11/13/10 02/28/18 [address] [place] [address] documented as of this encounter
--- OUTSIDE RECORDS SUMMARY | 2022-07-24 10:32 | XMS_ITS | Encounter Summary ---
:1940 Author Organization [facility] Address [address], [place] [address] Care Team Providers Name Role Phone Radha Martinez MD Primary Care Provider Reason for Visit Reason Comments Other Encounter Details Date Type Department Care Team Description 05/13/2004 Telephone [facility] Deisi Tavarez Other [address] [place] [address] Social History Tobacco Use Types Packs/Day Years Used Date Smoking Tobacco: Never Assessed Sex Assigned at Date Recorded Not on file documented as of this encounter Progress Notes Deisi Tavarez - 05/13/2004 1:20 PM CDT Phone Note filed by Deisi Tavarez RN at 11/28/10 1430 Author: Deisi Tavarez RN Service: (none) Author Type: (none) Filed: 11/28/10 1430 Note Time: 05/13/04 1320 Status: Signed Trial Lawyer: Rahat Conversion Per Dr. Martinez: Regarding renal ultrasound- kidneys look great, Left message for Princess. Created on 13May2004 1:20pm by DEISI TAVAREZ documented in this encounter Plan of Treatment Upcoming Encounters Date Type Specialty Care Team Description 09/29/2022 Appointment Rheumatology Kal Davila MD [address] [facility] [place] [address] [id number] (Wo rk) documented as of this encounter Visit Diagnoses Not on filedocumented in this encounter Care Teams Art Director Relationship Specialty Start Date End Date Radha Martinez MD PCP - General 11/13/10 02/28/18 [address] [place] [address] documented as of this encounter
--- OUTSIDE RECORDS SUMMARY | 2022-07-24 10:32 | XMS_ITS | Encounter Summary ---
:1940 [facility] Address [address] [place] [address] Care Team Providers Name Role Phone Radha Martinez MD Primary Care Provider Encounter Details Date Type Department Care Team Description 07/25/2002 PN Conversion Only Echo Internal Brie Martinez, Medicine [id number] [address] [facility] [phone] [place], [place] [id number] (Wo rk) Social History Tobacco Use Types Packs/Day Years Used Date Smoking Tobacco: Never Assessed Sex Assigned at Date Recorded Not on file documented as of this encounter Progress Notes Phone Note, Clinician - 12/10/2002 12:01 AM CDT Phone Note signed by Radha Martinez MD at 12/25/02 2149 Author: Clinician Phone Note Service: (none) Author Type: Resource Filed: 07/25/02 0000 Note Time: 12/10/02 0001 Status: Signed Debarker Operator: Clinician Phone Note (Resource) - TREATING PROVIDER: RADHA MICHELLE * HOME PHONE:[phone] * SUBJECTIVE: * WORK PHONE:[phone] * ALLERGIES/SENSITIVITIES... Darvon; no other allergies 11/14/99 12/09/02 CURRENT MEDICATIONS... Premerin; Synthroid; Lasix 20mg prn 11/14/99 12/09/02 PERTINENT PAST HISTORY... HYPOTHYROIDISM; HTN; HYSTERECTOMY 1986 11/14/99 12/09/02 ASSESSMENT: Re: Rx mail order DISPOSITION: NO [facility]ITION [facility]... contination of previous note: Per Dr. Martinez, needs to be seen rega rding synthroid dose (unclear). pt notified CALL BY ADRIENNE PEARSON RN 12/10/2002 10:08AM [phone] ADDENDUM: TENANCE HELPER Phone Note, Clinician - 12/09/2002 12:01 AM CDT Phone Note signed by Radha Martinez MD at 12/25/02 0350 Author: Clinician Phone Note Service: (none) Author Type: Resource Filed: 07/25/02 0000 Note Time: 12/09/02 0001 Status: Signed Debarker Operator: Clinician Phone Note (Resource) TO: RADHA MARTINEZ FROM: ELISE MYLES [id number] 12/09/02 * PROVIDER MESSAGE: ROUTINE * 12:02PM * *WITHIN 4 HOURS * MESSAGE: Pt. calling to request * HOME PHONE:[phone] * written rx's sent to her home for * WORK PHONE:[phone] * mail order 1. Premerin .625mg #90. * CONTACT PHONE:[phone] * 2. Lisinopril 20mg #90. 3. * mani * Furosemide 20mg #90 4.Vioxx 25mg #90. 5. Synthroid .125mg #90. SUBJECTIVE: ALLERGIES/SENSITIVITIES... Darvon; no other allergies 11/14/99 12/09/02 CURRENT MEDICATIONS... Premerin; Synthroid; Lasix 20mg prn 11/14/99 12/09/02 PERTINENT PAST HISTORY... HYPOTHYROIDISM; HTN; HYSTERECTOMY 198511/14/99 12/09/02 WEIGHT: ASSESSMENT: rx mail order PLAN: DISPOSITION: NO DISPOSITION GIVEN CALL BY ELISE SHAMEKA 12/09/2002 11:51AM [id number] ADDENDUM: <> 12/10/2002 10:00AM by ADRIENNE PEARSON RN: Written Rx by Dr. Martinez: Vioxx 25 mg i po Qd prn pain #90 x 2 refills, Lasix 20 mg ipo QD #90 x 2 refills, and Lisinopril 20 mg i po QD #90 x 2 refills, Premarin 0.625 mg i po Qd #90 x 2 refills. Rx sent to pt home per pt request. pt notified TENANCE HELPER Phone Note, Clinician - 12/03/2002 12:01 AM CDT Phone Note filed by Clinician Phone Note at 11/29/108 Author: Clinician Phone Note Service: (none) Author Type: Resource Filed: 11/29/10 1109 Note Time: 12/03/02 0001 Status: Signed Debarker Operator: Clinician Phone Note (Resource) SUBJECTIVE: ALLERGIES/SENSITIVITIES... Darvon; * HOME PHONE:[phone] * no other allergies 11/14/99 * WORK PHONE:[phone] * CURRENT MEDICATIONS... Premerin; Synthroid; Lasix 20mg prn 11/14/99 PERTINENT PAST HISTORY... HYPOTHYROIDISM; HTN; HYSTERECTOMY 198511/14/99 ASSESSMENT: Prior Auth DISPOSITION: NO DISPOSITION GIVEN PLAN: [facility] COMMENTS... Prior Auth faxed to [facility] for Celebrex/Vioxx/Bextra. Will await response. CALL BY SARAH MADDEN LPN 12/03/2002 11:45AM [phone] ADDENDUM: TENANCE HELPER Conversion, Imr - 09/19/2002 12:01 AM CST Phone Note signed by at 09/19/02 1141 Author: Rahat Conversion Service: (none) Author Type: (none) Filed: 12/01/10 1225 Note Time: 09/19/02 0001 Status: Signed Debarker Operator: Rahat Conversion IMPRESSION: lab results SUBJECTIVE: ALLERGIES/SENSITIVITIES... Darvon; * HOME PHONE:[phone] * no other allergies 11/14/99 * WORK PHONE:[phone] * CURRENT MEDICATIONS... Premerin; Synthroid; Lasix 20mg prn 11/14/99 PERTINENT PAST HISTORY... HYPOTHYROIDISM; HTN; HYSTERECTOMY 1986 11/14/99 ASSESSMENT: lab results DISPOSITION: NO DISPOSITION GIVEN PLAN: [facility] COMMENTS... Per Doctor Michelle; please call pt. to decrease synthroid to 112mcg p o qd #30 2 refills labs in 6 weeks TSH free T4 244.9 and ask patient if the have moved [place] Unable to reach patient, will continue to t ry. If patient calls please give message and find out pharmacy phone n ena. CALL BY LA PALACIO LPN 09/19/2002 11:37AM ADDENDUM: TENANCE HELPER Conversion, Imr - 07/29/2002 12:01 AM CST Phone Note signed by at 07/29/02 1336 Author: Rahat Conversion Service: (none) Author Type: (none) Filed: 12/01/10 1113 Note Time: 07/29/02 0001 Status: Signed Debarker Operator: Rahat Miller IMPRESSION: Regarding TSH results SUBJECTIVE: ALLERGIES/SENSITIVITIES... Darvon; * HOME PHONE:[phone] * no other allergies 11/14/99 * WORK PHONE:[phone] * CURRENT MEDICATIONS... Premerin; Synthroid; Lasix 20mg prn 11/14/99 PERTINENT PAST HISTORY... HYPOTHYROIDISM; HTN; HYSTERECTOMY 1986 11/14/99 ASSESSMENT: Regarding TSH results DISPOSITION: NO DISPOSITION GIVEN PLAN: [facility] COMMENTS... Per SE please let pt know her results were low. She will need to decr ease her Synthroid to 125mcg PO QD. She should come to lab in 6wks fo r recheck of TSH. Message given to pt. Pt is moving to [place], she will check blood down there and will need a new rx to take with her. Lab order and rx mailed with letter. CALL BY LA PALACIO LPN 07/29/2002 01:34PM ADDENDUM: TENANCE HELPER Radha Martinez MD - 07/25/2002 12:01 AM CST Progress Notes signed by Radha Martinez MD at 08/08/02 8769 Author: Radha Martinez MD Service: (none) Author Type: Physician Filed: 12/01/10 1108 Note Time: 07/25/02 0001 Status: Signed Debarker Operator: Radha Martinez MD (Physician) IMPRESSION: Well exam, 62-year-old white female. Hypertension. Degenerative jointdisease. Hypothyroidism. SUBJECTIVE: Vwupo-eyp-tyjk-old female here for well exam. In addition, she needs to follow up on hypertension, hypothyroidism. She needs all of her prescriptions refilled also. She has been having some arthritis pain also. Her prior preventive cares include history of hysterectomy for endometriosis with bilateral oophorectomy in 1972. She has not been getting any Paps. Her last mammogram was in June of this year. She is doing self breast examinations and has noticed no abnormalities. She has not gotten a flu shot, last tetanus 1997. She had a colonoscopy three to four years ago, and she says there were no polyps or abnormalities. She is not doing any regular exercise, but is starting a swimming exercise program when she goes to [place] after . She had a bone density study done in November 2000, which showed normal bone density. She is not taking any calcium supplements at this time. She has a history of hypertension. She has been on lisinopril, she believes it is 20 mg p.o. q. day. She has noticed no specific side effects, and her blood pressures have been in the normal range when she checks it. She has hypothyroidism. She needs a refill on her Synthroid. She is taking 150 mcg a day. She has had last TSH in last July, which was actually a little bit low at 0.17. She will be going to [place] after the holidays for three to four months, and she needs two prescriptions for all of her medications for this. SOCIAL HISTORY: She is with three adult children. [facility] [place] 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 She denies any domestic abuse. HABITS: Rare alcohol. No tobacco. FAMILY HISTORY: Her father had heart failure in his eighties and her mother had a history of hypertension, age 89 after she had a stroke. ADR/ALLERGIES: POSSIBLY TO DARVON AND SULINDAC. PAST MEDICAL HISTORY: 1. Endometriosis. 2. Hypothyroidism. 3. Arthritis. 4. Lower extremity edema. 5. History of colon polyps with clear colonoscopy in 1999. 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 7. Functional heart murmur. 8. Status post hysterectomy and bilateral oophorectomy in 1972. 9. History of right knee replacement in 1994. 10. History of left knee replacement, 1999. 11. Status post appendectomy. MEDICATIONS: Lasix 20 mg p.o. q. day; Synthroid 150 mcg p.o. q. day; Premarin 0.625 mg p.o. q. day; lisinopril 20 mg p.o. q. day; Advil p.r.n. OBJECTIVE: VS: BP: 142/88. P: 64. Wt: 210 lb. GENERAL: She is a healthy-appearing female in no acute distress. EYES: Pupils are equal, round, and reactive. Extraocular muscles are intact. There is no conjunctival icterus or injection. ENT: Tympanic membranes appear normal. Face appears symmetric. Nasal mucosa appears normal. Oropharynx is clear with normal dentition. NECK: Supple without lymphadenopathy, thyromegaly, or carotid bruits. LUNGS: Clear to auscultation. CARDIOVASCULAR: Regular rate and rhythm with 1 out of 6 systolic murmur, heard at the right upper sternal border. No gallops or rubs are appreciated. She has 2-4 radial artery and dorsalis pedis pulses bilaterally. Trace lower extremity edema bilaterally. No varicosities. BREASTS: Breasts appear normal with no masses or lymphadenopathy. No skin changes or nipple discharge. ABDOMEN: Soft, nontender, nondistended without masses or hepatosplenomegaly. EXTREMITIES: Trace of edema in the lower extremities. MUSCULOSKELETAL: She is status post bilateral knee replacements. NEUROLOGICAL: Zero to four reflexes at the knees. One out of four ankles bilaterally. PSYCHIATRIC: She is appropriate mood and affect. ASSESSMENT: 1. Well exam, 62-year-old white female. 2. Hypertension. 3. Degenerative joint disease. 4. Hypothyroidism. PLAN: 1. Physical exam done today. She does not need Paps or pelvics. Also clinical breast exam completed. Recommended monthly self breast examinations. She recently had her screening mammogram. Recommended calcium and vitamin E supplementation. Plan to check fasting lipid profile and glucose. Plan to give flu shot today. He will start a regular exercise program. 2. Will refill her Zestril at 20 mg p.o. q. day, she will let me know if she is on more than this. 3. Trial of Vioxx 25 mg tablets, one-half to one tablet p.o. q. day p.r.n. pain. 4. Check TSH, refilled her Synthroid 150 mcg p.o. q. day. 5. I wrote out prescriptions for everything, including Lasix, Synthroid, Premarin, and lisinopril, two prescriptions written for each one as she will need to take some prescriptions with her to [place], she says. She will follow up with me when she gets back from [place]. TT: CT: GARETH:[id number] C: DOCUMENT: [id number] TENANCE HELPER Conversion, [facility] - 08/16/2001 12:01 AM CST Phone Note signed by Florencia Juliet Cyn at 09/03/01 1413 Author: Rahat Conversion Service: (none) Author Type: (none) Filed: 12/01/10 0307 Note Time: 08/16/01 0001 Status: Signed Debarker Operator: Rahat Conversion IMPRESSION: REQUESTS WRITTEN SCRIPT FOR PREMARIN .625 MG QD TO: FLORENCIA MUNSON FROM: ALIVIA CRUZ [id number] 08/16/01 * PROVIDER MESSAGE: ROUTINE * 11:16AM * *WITHIN 4 HOURS * MESSAGE: Pt calling for written * HOME PHONE:[phone] * script for premarin .625 mg qd. Pt * WORK PHONE:[phone] * had appt 08/08/01, but forgot to * CONTACT PHONE:[phone] * obtain premarin written script. Please mail to pt home address. SUBJECTIVE: ALLERGIES/SENSITIVITIES... Darvon; no other allergies 11/14/99 CURRENT MEDICATIONS... Premerin; Synthroid; Lasix 20mg prn 11/14/99 PERTINENT PAST HISTORY... HYPOTHYROIDISM; HTN; HYSTERECTOMY 1986 11/14/99 WEIGHT: ASSESSMENT: REQUESTS WRITTEN SCRIPT FOR PREMARIN .625 MG QD PLAN: DISPOSITION: NO DISPOSITION GIVEN CALL BY ALIVIA CRUZ 08/16/2001 11:09AM [id number] ADDENDUM: <> 08/16/2001 02:14PM by CYNTHIA BURNS RN: Florencia Munson, RN, SALES REPRESENTATIVE G[employer] SERVICE wrote a rx for: Premarin 0.625 mg poQD #3 mos supply with prn refills x 1 year.///Mailed to pt's home address as requested. <> 08/22/2001 09:41AM by ALIVIA CRUZ: Pt call: has not rec'd written script and will run out of premarin. Pt request a week supply of Premarin 0.625 mg qd be called in to local pharm. ([facility] [phone]). Pt can be reached at home #, vRoberto CarlosmRoberto Carlos call <> 08/22/2001 02:20PM by SCOTTY ROQUE: Carlos Sanchez SLASHER TENDER: pls call in Premarin .625mg po qd #7.///Called pharm & pt-left VM as above. ELLA MunsonFlorencia - 08/08/2001 12:01 AM CST Progress Notes signed by Florencia Munson at 08/15/01 0810 Author: Florencia Munson Service: (none) Author Type: Resource Filed: 12/01/10 0257 Note Time: 08/08/01 0001 Status: Signed Debarker Operator: Florencia Munson (Resource) IMPRESSION: Normal well exam. Hypothyroidism. Influenza vaccination. SUBJECTIVE: : 40. Date of visit: 08/08/01Roberto Carlos Sánchez is a 61-year-old white female who presents today for a well exam. She has no complaints at this time, but stated it is time to come in for her well exam. The patient's past medical history is significant for a 0 para 0, endometriosis for which she had a hysterectomy and bilateral oophorectomy, hypothyroidism, osteoarthritis. The patient has a history with edema, colon polyp which on last colonoscopy in 1999 was clear, some sensorineural hearing loss in the left ear which is considered a TIA versus virus, and a heart murmur. PSH: In addition to the hysterectomy for endometriosis, the patient has had a right knee replacement and a left knee replacement approximately five years apart. The patient did have a biopsy of her right breast which was benign. The patient has had a bunionectomy and appendectomy. ALLERGIES INCLUDE A QUESTIONABLE DARVON WHICH THE PATIENT STATES SHE FELT WEAK. HOWEVER, HAD STREP THROAT AT THE TIME. SULINDAC GIVES THE PATIENT HIVES. Medications include Lasix 20 mg p.o. q.d., Synthroid 0.15 mg p.o. q.d., Premarin 0.625 mg p.o. q.d. The patient does have prophylaxis amoxicillin two grams one hour before dental appointment and Zestril 10 mg p.o. q.d. The patient also takes Advil p.r.n. with food for any arthritis type pain. ROS: Constitutional: The patient denies any weight loss or gain, fever, chills, sweats, myalgias. The patient denies any heat or cold intolerance. However, does state that she does have skin dryness. Wondering if it is related to her hypothyroidism, or if it is just the winter weather. The patient denies any anorexia. Eyes: The patient denies vision changes, eye pain, or diplopia. ENT: The patient denies dysphagia, sore throat, rhinorrhea, sinusitis at this time, postnasal drip, or heartburn symptoms. Respiratory johnson, the patient denies wheezing, orthopnea, cough, hemoptysis, or shortness of breath. Cardiovascular: The patient denies chest pain, shortness of breath, current edema, palpitations, or claudication. The patient does state that she has shortness of breath infrequently but has not had an episode for quite some time. The patient states this has been worked up, and all workups have been negative. GI: The patient denies any abdominal pain, nausea, vomiting, early satiety, diarrhea, constipation, or bowel changes. The patient denies melena or hematochezia. : The patient denies dysuria, hematuria, incontinence. The patient does do breast self-exam on a monthly basis and has no concerning findings. The patient denies any vaginal bleeding or discharge. Musculoskeletal: The patient denies any back or neck pain. Does have some achy joints from time to time which she treats with Advil as previously stated. Skin: The denies any concerning skin lesions or rashes. Neurologically, the patient denies headache, numbness, tingling, localized weakness, tremor, or dysequilibrium. Psychiatric: The patient denies depression, anxiety, insomnia, or memory concerns. Remainder of review of systems is negative. SH: The patient has three children. They are all adopted, two boys and one girl. She has been for the past 38 years. The patient states that she is currently in the process of moving from a farm home to [place] [place]. The patient states that this has been a little bit stressful as she has had to choose what she wanted to keep as her new home is smaller than her previous. The patient states she is excited about the [facility], however, because it is a single level. The patient's family history is significant for her father having heart failure in his 80s and her mother having hypertension. The patient does not smoke tobacco products. She quit in 1969. The patient drinks zero to one alcoholic beverage per week. Denies any use of recreational or injection drugs. The patient is sexually active with one partner in the past year. She has no sexual concerns. The patient's last mammogram was 11/21/00, and is requesting this at same time next year. The patient denies any STDs and does state that she wears her seatbelt each time she is in the car. The patient does not have a regular exercise program. However, she states she tries to get some. The patient states her diet varies. OBJECTIVE: VS/Gen: BP1: 152/80. BP2: 132/74. P: 76. Wt: 200.9 pounds. Mani is a 61-year-old white female in no apparent distress, well- nourished, well-developed. She is alert and oriented x3. She is pleasant and cooperative. She easily gets on and off the exam table without any devices. Her gait is steady. HEENT: Conjunctivae are pink without lesions or discharge. PERRLA. EOMI. TMs and canals are clear bilaterally. Nasal turbinates are pink and without swelling, erythema, or lesions. Oropharynx is pink without lesions, exudates, or lesions. NECK: Supple without lymphadenopathy. Thyroid is smooth and nontender without thyromegaly. There are no carotid bruits bilaterally. BREASTS: In the sitting position, arms raised, and the hips slightly leaning forward without retraction, orange peel skin, dimpling or other concerns. Lying breast exam on palpation, normal mammary tissue. There are no fixed masses. There is no dimpling. There is no nipple discharge bilaterally. There is no axillary lymphadenopathy. LUNGS: Respirations are regular and easy. Lungs on auscultation are clear bilaterally. Percussion within normal limits. CV: Heart rate and rhythm are regular. S1, S2 without murmur. The patient does have a soft murmur which has previously been noted. No S3, S4, rub or gallop noted. There is no lower extremity edema. As previously stated, there are no carotid bruits. These are 2+ bilaterally. Also, posterior tibial and dorsalis pedis pulses are 2+ bilaterally. ABD: Soft and nontender. No CVA tenderness. There is no hepatosplenomegaly. : A Pap was not done as the patient has had a hysterectomy for endometriosis. However, bimanual exam was done with negative findings. 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 There are no lesions, erythema, or exudate noted. MUSCULOSKELETAL: Digits and nails are without clubbing or cyanosis. Patient's strength is equal bilaterally. NEURO: Cranial nerves II-XII are grossly intact. Speech is clear. Facial expressions are symmetrical. DTRs are 2+ bilaterally for brachial radialis and plantar. Patellar reflexes not done. The patient has had bilateral knee replacements. ASSESSMENT: 1. Hypothyroidism. 2. Osteoarthritis. 3. Sensorineural hearing loss in the left ear. 4. Heart murmur. PLAN: 1. The patient will receive flu vaccination today per her request. 2. Labs: TSH will be done as the patient has hypothyroidism and had dosage changed recently. 3. Mammogram ordered after 11/21/01, because the patient allowed one per year. 4. Discussed with patient health maintenance consideration including exercise, diet, continued self-breast exam, and reassured the patient, signs and symptoms with self-breast exam, when she should call me. The patient is agreeable with this. 5. Encouraged the patient to call with questions or concerns. TT: CT: [facility]:[id number] C: DOCUMENT: [id number] TENANCE HELPER Wilder Angel MD - 04/30/2001 12:01 AM CDT Progress Notes signed by at 08/30/02 1808 Author: Wilder Angel MD Service: (none) Author Type: Physician Filed: 12/01/10 0051 Note Time: 04/30/01 0001 Status: Signed Debarker Operator: Wilder Angel MD (Physician) IMPRESSION: Postop left total knee arthroplasty. SUBJECTIVE: Date of Visit: 04/30/01. The patient is seen for followup one year out from left total knee arthroplasty. She reports no problem. OBJECTIVE: On examination, she walks with a normal gait. She has excellent range of motion. Her x-rays show no evidence of loosening. ASSESSMENT: Postop left total knee arthroplasty. PLAN: We will see her back in followup on an as needed basis. MKT:[id number] C: DOCUMENT: [id number] TENANCE HELPER Conversion, [facility] - 04/30/2001 12:01 AM CDT Phone Note signed by at 04/30/01 0951 Author: Imr Conversion Service: (none) Author Type: (none) Filed: 12/01/10 0051 Note Time: 04/30/012131 Status: Signed Debarker Operator: Imr Conversion IMPRESSION: NEEDS WRITTEN SCRIPT FOR MAIL ORDER. TO: AZALEA TALBOT FROM: SCOTTY ROQUE [id number] 04/30/01 * PROVIDER MESSAGE: ROUTINE * 09:51AM * *WITHIN 4 HOURS * MESSAGE: Pt stopped by check-in desk. * HOME PHONE:[phone] * Pt rec'vd rx for Synthroid 0.15mg * WORK PHONE:[phone] * in Mar but pt had to fill it in * CONTACT PHONE:[phone] * [place] while on trip there, now * work * needs new script to send to mail order pharmacy. Pls write for Synthroid 0.15mg po qd #90 w/approp refills. SUBJECTIVE: ALLERGIES/SENSITIVITIES... Darvon; no other allergies 11/14/99 CURRENT MEDICATIONS... Premerin; Synthroid; Lasix 20mg prn 11/14/99 PERTINENT PAST HISTORY... HYPOTHYROIDISM; HTN; HYSTERECTOMY 1986 11/14/99 WEIGHT: ASSESSMENT: NEEDS WRITTEN SCRIPT FOR MAIL ORDER. PLAN: DISPOSITION: NO DISPOSITION GIVEN CALL BY CSOTTY ROQUE 04/30/2001 09:39AM [id number] ADDENDUM: <> 05/01/2001 03:34PM by SCOTTY ROQUE: Per : script written as above.///Called pt, will have excelsior picker from check-in desk. ELLA Miller [facility] - 04/09/2001 12:01 AM CDT Phone Note signed by at 04/09/01 0486 Author: Rahat Miller Service: (none) Author Type: (none) Filed: 12/01/10 0027 Note Time: 04/09/01 0001 Status: Signed Debarker Operator: Rahat Miller IMPRESSION: thyroid results SUBJECTIVE: PATIENT COMPLAINS OF... thyroid * HOME PHONE:[phone] * results, same as last tsh: per * WORK PHONE:[phone] * md, stay on synthroid 0.15mg and follow up with md in 2-3 months. written rx for #90 for pt to excelsior picker here, going on vacation ALLERGIES/SENSITIVITIES... Darvon; no other allergies 11/14/99 CURRENT MEDICATIONS... Premerin; Synthroid; Lasix 20mg prn 11/14/99 PERTINENT PAST HISTORY... HYPOTHYROIDISM; HTN; HYSTERECTOMY 1986 11/14/99 ASSESSMENT: thyroid results DISPOSITION: NO DISPOSITION GIVEN PLAN: CALL BY ADAN THOMPSON CMA 04/09/2001 03:42PM ADDENDUM: Ced Alvarado MD - 11/27/2000 12:01 AM CDT Progress Notes signed by Ced Beltran MD at 12/18/00 9794 Author: Ced Beltran MD Service: (none) Author Type: Physician Filed: 11/30/10 220 Note Time: 11/27/00 0001 Status: Signed Debarker Operator: Ced Beltran MD (Physician) IMPRESSION: Bone density on Hologic Jackson. SUBJECTIVE: REFERRING PROVIDER: DR. AZALEA TALBOT INTERPRETING PHYSICIAN: CED BELTRAN MD OSTEOPOROSIS RISK FACTORS FROM PATIENT QUESTIONNAIRE: Inadequate calcium intake, possible vitamin D deficiency, is on estrogen replacement. OBJECTIVE: SITE BMD T-SCORE* %PEAK Z-SCORE^ %MATCHED ADULT PEER L1-L4 1.131 +0.8 108% +2.2 128% Tot L Hip 1.020 +0.6 108% +1.5 124% * The T-score = Standard Deviations Above/Below Mean Peak Adult ^ The Z-score = Standard Deviations Above/Below Mean Age/Sex - Matched Peers WHO DEFINITIONS: Normal BMD: T-score > -1.0 Osteopenia: T-score between -1.0 and -2.5 Osteoporosis: T-score < -2.5 ASSESSMENT: 1. Normal bone density of the lumbar spine and left hip. 2. No increased fracture risk is apparent. PLAN: (RECOMMENDATIONS) 1. Optimize calcium intake. 2. Supplement with 400 to 800 units of vitamin D per day. 3. If estrogen is discontinued for any reason, a repeat bone density study four to five years subsequently would be reasonable if substantial bone loss would then lead to reuse of estrogen or another antiresorptive agent. JTS:[id number] C: DOCUMENT: [id number] Wilder Angel MD - 10/30/2000 12:01 AM CST Progress Notes signed by at 08/30/02 5164 Author: Wilder Angel MD Service: (none) Author Type: Physician Filed: 11/30/10 2135 Note Time: 10/30/00 0001 Status: Signed Debarker Operator: Wilder Angel MD (Physician) IMPRESSION: Postop total knee arthroplasties. SUBJECTIVE: The patient is seen for followup of her left knee replacement. She has also been having some increased discomfort in the right knee. Most of that discomfort is laterally. OBJECTIVE: On examination of the left knee, she has full extension, flexes up to 120 degrees. The ligaments are stable. On active flexion- extension of the right knee, there is no significant crepitus. The knee is stable and there is some mild tenderness along the lateral joint line. X-rays were obtained of both knees today and there is no evidence of loosening or mechanical complication of the implants. ASSESSMENT: Postop total knee arthroplasties. PLAN: I recommend that she simply observe. We will see her back for followup in six months time with AP and lateral x-rays of the left knee. MKT:[id number] C: DOCUMENT: [id number] TENANCE HELPER Azalea Talbot MD - 10/26/2000 12:01 AM CST Progress Notes signed by Azalea Talbot MD at 11/21/001940 Author: Chase Talbot MD Service: (none) Author Type: Physician Filed: 11/30/102131 Note Time: 10/26/002131 Status: Signed Debarker Operator: Chase Talbot MD (Physician) IMPRESSION: This is a 60-year-old female who presents to the clinic for annual physical check. Hypertension. SUBJECTIVE: Date of 1940. The patient is a 60-year-old white female who presents to the clinic for annual physical check. The patient does not have any specific complaints for this visit. PAST MEDICAL HISTORY: Significant for hypothyroidism, hypertension, osteoarthritis, and polyps in the colon, left ear sensory loss for four years. PAST SURGICAL HISTORY: Hysterectomy in 1972, right knee replacement 1994, left knee replacement in 1999, status post appendectomy and bunionectomy. Also the patient had heart murmur, underwent PFT, Adenosine stress test, and angiogram, was all clear per patient. MEDICATIONS: Lisinopril 10 mg once a day, Premarin 0.625 mg once a day, Synthroid 0.175 mg once a day, Lasix 20 mg once a day. ALLERGIES: DARVON AND SULINDAC. FAMILY HISTORY: Her father had heart failure at age 80s, and mother had hypertension. SOCIAL HISTORY: She smoked in the past and quit in the 70s. Denies drinking. She started eating more healthy. REVIEW OF SYSTEMS: Negative for constitutional, no weight loss, no low grade fever. Cardiovascular, no chest pain, no palpitations. No shortness of breath on exertion. Pulmonary, no cough, no hemoptysis, no skip disorder, no wheezing. Negative for GI, negative for , negative for endocrinology, negative for rheumatology, negative for neurology and psychiatric. The patient is complaining of right knee pain on walking and crepitus during flexion, extension, movement. OBJECTIVE: BP: 142/82 P: 80 Wt: 202 GENERAL: Pleasant, well-nourished female in no acute distress. HEENT: Pupils are equal, round, and reactive to light. Conjunctivae pink. Inspection of the external ears clear, tympanic membranes intact. Posterior pharyngeal area, no swelling, no erythema and no tonsillar enlargement. NECK: Supple, no JVP, no bruits, no thyroid enlargement. PULMONARY: Clear to auscultation. No wheezing. No crackles. No dullness on percussion. Bilateral flank, no tenderness on percussion. BREASTS: Symmetrical, no skin lesion, no nipple discharge. No mass or nodule on palpation. HEART: 3/6 systolic murmur right sternal border, no radiation, no gallop. S1 and S2 with regular rhythm, regular rate. ABDOMEN: Soft, no tenderness, obese, liver and spleen not palpable. Bowel sounds present. No masses or nodules on palpation. LYMPHATICS: No cervical, axillary, inguinal, supraclavicular lymphadenopathy. EXTREMITIES: No tenderness, trace edema both lower extremities. Good pulsation lower extremities. MUSCULOSKELETAL: No cyanosis, no clubbing, and right knee tender on palpation, and flexion, extension does make crepitant sounds. Otherwise no evidence of warmth, effusion, and decreased range of motion. NEUROLOGIC: II-XII intracranial nerves intact except the left ear hearing was decreased to midline. Normal strength 5/5 and sensation intact. Reflexes elicited, 2+ upper extremities and absent on both knees. Bilateral Babinski below and normal gait. PELVIC: Not done. RECTAL: Not done. ASSESSMENT: 1. This is a 60-year-old female who presents to the clinic for annual physical check. Hypertension. Well controlled, continue Lisinopril 10 mg once a day. Check kidney function today. 2. Hypothyroidism. Check TSH and fill prescription for Synthroid 0.175. Regarding report and adjust medication. 3. Health maintenance check. Bone density and twelve hour fasting cholesterol and sent stool cards times three. Schedule for mammogram. PLAN: See assessment. ZXL:[id number] C: DOCUMENT: [id number] Wilder Angel MD - 07/26/2000 12:01 AM CST Progress Notes signed by at 08/30/02 175 Author: Wilder Angel MD Service: (none) Author Type: Physician Filed: 11/30/10 195 Note Time: 07/26/00 0001 Status: Signed Debarker Operator: Wilder Angel MD (Physician) IMPRESSION: Postop total knee arthroplasty. SUBJECTIVE: The patient is seen for follow up three months out from left total knee arthroplasty. She reports doing well, having little discomfort. OBJECTIVE: On examination her incision is healing well. She has full extension, flexion, easily up to 100 degrees. She walks with a relatively normal gait. ASSESSMENT: Postop total knee arthroplasty. PLAN: We will have her continue with her rehab exercises. Follow up at one year postop with x-rays of the knee. MKT:[id number] C: DOCUMENT: [id number] TENANCE HELPER Wilder Angel MD - 05/29/2000 12:01 AM CDT Progress Notes signed by at 08/30/02 1748 Author: Wilder Angel MD Service: (none) Author Type: Physician Filed: 11/30/101900 Note Time: 05/29/00 0001 Status: Signed Debarker Operator: Wilder Angel MD (Physician) IMPRESSION: Postop left knee total arthroplasty. SUBJECTIVE: The patient returns for a followup 3-1/2 weeks out from left knee total arthroplasty. She is reporting mild soreness. OBJECTIVE: On examination the incision is healing well. Range of motion is from 0 to 105 degrees flexion. ASSESSMENT: Postop left knee total arthroplasty. PLAN: Will have her continue with her rehab exercises and see her back for followup in two months time. ABIOLAT:[id number] C: DOCUMENT: [id number] Wilder Morocho MD - 05/15/2000 12:01 AM CDT Progress Notes signed by at 08/30/02 1747 Author: Wilder Angel MD Service: (none) Author Type: Physician Filed: 11/30/10 1848 Note Time: 05/15/00 0001 Status: Signed Debarker Operator: Wilder Angel MD (Physician) IMPRESSION: Postoperative knee arthroscopy and debridement. SUBJECTIVE: The patient is seen for followup a week and a half out from the arthroscopy. She reports mild discomfort. OBJECTIVE: On examination the incisions are healing well, there is no evidence of infection. ASSESSMENT: Postoperative knee arthroscopy and debridement. PLAN: We discussed the findings of surgery involving primarily degenerative arthritis. We will have her proceed with her rehab exercises. Followup on an as needed basis. MKT:[id number] C: DOCUMENT: [id number] Jamaal Louis MD - 05/02/2000 12:01 AM CDT Progress Notes signed by at 06/26/00 1743 Author: Jamaal De La Garza MD Service: (none) Author Type: (none) Filed: 11/30/10 1835 Note Time: 05/02/00 0001 Status: Signed Debarker Operator: Rahat Miller IMPRESSION: Preoperative exam for knee replacement. SUBJECTIVE: Preoperative exam for knee replacement. Details in the front of the chart. OBJECTIVE: N/A ASSESSMENT: Preoperative exam for knee replacement. PLAN: N/A MEB:[id number] C: DOCUMENT: [id number] Rahat Anderson - 01/17/2000 12:01 AM CDT Progress Notes signed by at 03/19/01 2155 Author: Rahat Miller Service: (none) Author Type: (none) Filed: 11/30/10 1656 Note Time: 01/17/00 0001 Status: Signed Debarker Operator: Rahat Miller IMPRESSION: Degenerative arthritis, left knee. 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 She had her right knee replaced 5 years ago. She is now having constant pain in the left knee, pain referred down the legs, and she is having trouble straightening the knee. OBJECTIVE: She lacks about 5-10 degrees of full extension and flexes up to 95 degrees. Ligaments are stable. There is diffuse tenderness. Her x-rays show marked narrowing of the medial compartment in the left knee and degenerative changes around the patellofemoral joint. ASSESSMENT: Degenerative arthritis, left knee. PLAN: We discussed treatment options. At this point I think her only option is to continue to manage the pain conservatively or consider knee replacement surgery. She will consider our discussion. MKT:[id number] C: DOCUMENT: [id number] SCHEDULED RESOURCE: WILDER ANGEL MD Trey Sullivan MD - 12/02/1999 12:01 AM CDT Progress Notes signed by Trey Biswas MD at 02/21/00 1911 Author: Trey Biswas MD Service: (none) Author Type: Physician Filed: 11/30/10 1615 Note Time: 12/02/99 0001 Status: Signed Debarker Operator: Trey Biswsa MD (Physician) IMPRESSION: Hypertension, well controlled on Lisinopril. SUBJECTIVE: The patient is a 59-year-old woman who is here for follow up of her hypertension. We restarted her on Lisinopril. She was concerned that this would give her a rash. She did not develop a rash and was doing fine on it. No complaints. She is trying to walk more and her exercise tolerance is a little bit better, but her knee is bothering her. REVIEW OF SYSTEMS: Otherwise negative. ALLERGIES: DARVON. MEDICATIONS: Lasix 20 mg a day, Synthroid 0.175, Premarin 0.625, Amoxicillin 2 gm one hour before dentist and Lisinopril 20. OBJECTIVE: T: 97.9. BP: 140/86, repeat 135/85. P: 76. WT: 211. Looks well. Eyes, ears, nose and throat are normal. Neck is supple without lymphadenopathy, carotid bruit. Lungs are clear. Cardiovascular exam, normal S1, S2, regular rate and rhythm, a little on the distant side. Abdominal exam, bowel sounds present. No edema. ASSESSMENT: Hypertension, well controlled on Lisinopril. PLAN: Check a sodium, potassium, BUN and creatinine. Follow up in six weeks. If her knee continues to bother her, follow up with orthopedics. JEV:[id number] C: DOCUMENT: [id number] Trey Biswas MD - 11/17/1999 12:01 AM CDT Progress Notes signed by Trey Biswas MD at 02/21/00 191 Author: Trey Biswas MD Service: (none) Author Type: Physician Filed: 11/30/10 1601 Note Time: 11/17/99 0001 Status: Signed Debarker Operator: Trey Biswas MD (Physician) IMPRESSION: Hypertension, incompletely controlled. SUBJECTIVE: The patient is a 59-year-old woman here for follow up of her shortness of breath. She has had a pulmonary function test and a full cardiac workup including an angiogram. The conclusion is this is just mostly overweight and deconditioning. She does, however, have hypertension and was started on lisinopril and also sulindac at roughly the same time and developed a rash so she is not sure which one it was and stopped taking it. Her problem with walking is her knee gives out, otherwise she is feeling fine. Now she did have a viral syndrome over last week with a fever, chills, body aches, but this has mostly resolved. ALLERGIES: DARVON AND EITHER THE LISINOPRIL OR THE SULINDAC. MEDICATIONS: Premarin 0.625, Synthroid .175, Advil and Benadryl. OBJECTIVE: T: 98.8. BP1: 144/72. BP2: 138/78. P: 78. Wt: 214. Overweight, but otherwise healthy-appearing middle aged woman. Extraocular movements are intact. Pupils are equal and react to light. Vessels and disks are normal. Ears, nose, and throat are normal. Neck is supple without lymphadenopathy or carotid bruits. Lungs are clear. Cardiovascular exam normal S1, S2. Regular rate and rhythm with an S4. Abdominal exam bowel sounds present. Soft and nontender. Good radial and dorsalis pedis pulses. No edema. ASSESSMENT: Hypertension, incompletely controlled. PLAN: Will retry lisinopril at 25 mg. If this gives her a rash then atenolol 25 mg. Follow up in two weeks. She did have some recheck of her kidney functions after being on lisinopril but this will need to be rechecked as well. We also need to start her on a conditioning program, either her [facility] or walking in five minutes increments to a total of 30 minutes on weekly advances. Follow up in two weeks. JEV:[id number] C: DOCUMENT: [id number] Conversion, [facility] - 11/14/1999 12:01 AM CDT Phone Note signed by Trey Biswas MD at 02/21/00 9502 Author: Rahat Conversion Service: (none) Author Type: (none) Filed: 11/30/10 1557 Note Time: 11/14/99 0001 Status: Signed Debarker Operator: Rahat Conversion IMPRESSION: POSS. ALLERGIC REACTION TO MEDICATIONS TO: TREY BISWAS FROM: [facility] [facility] [id number] 11/14/99 * PROVIDER MESSAGE: ROUTINE * 09:24AM * *WITHIN 4 HOURS * MESSAGE: Pt requesting to speak with * HOME PHONE:[phone] * PMD about 1) had to stop Prinivil & * WORK PHONE:[phone] * Sulind ec. Is concerned about not * CONTACT PHONE:[phone] * taking these for a few days. 2) Had poss. allergic reaction to these medications. May reach @ work to advise. SUBJECTIVE: CHIEF CONCERN... Pt calling: feels she might have an allergic reaction to new medicatio n, hives, sneezing, face got red, chills/fever, Pt had been given Prin ivil; Sulindac started them 10/16. She had been taking Benedryl 25mg that has helped some but has to take very regularly, feels slightly drowsy. ALLERGIES/SENSITIVITIES... Darvon; no other allergies 11/14/99 CURRENT MEDICATIONS... Premerin; Synthroid; Lasix 20mg prn 11/14/99 PERTINENT PAST HISTORY... HYPOTHYROIDISM; HTN; HYSTERECTOMY 1986 11/14/99 WEIGHT: PATIENT IS NOT . PATIENT IS NOT NURSING. ASSESSMENT: POSS. ALLERGIC REACTION TO MEDICATIONS PLAN: COMMENTS: Sugg. could take 2 caps, but not if using vehicle. Pt would preferr to take something that wouldn't interfere with work, daily activities. DISPOSITION: NO DISPOSITION GIVEN CALL BY [facility] 11/14/1999 09:10AM [id number] ADDENDUM: <> 11/14/1999 12:17PM by FLORENCIA LO: per orders of dr. biswas, patient was instructed to stop taking the prinivil and the sulindac.(patient had already done that.) suggested she take benadryl 50mg for itiching q 6 hours prn. also to alternate hc 2-3x daily with benadryl gel 2-3x daily._will keep scheduled appointment for later this week. TENANCE HELPER Conversion, [facility] - 10/17/1999 12:01 AM CST Progress Notes signed by at 03/19/01 5051 Author: Rahat Conversion Service: (none) Author Type: (none) Filed: 11/30/10 1532 Note Time: 10/17/99 0001 Status: Signed Debarker Operator: Rahat Conversion IMPRESSION: Dyspnea, possible silent ischemia versus false alarm nuclear cardiac scan. Obesity and deconditioning. Hypertension. SUBJECTIVE: CHIEF COMPLAINT: A 59-year-old woman referred by Dr. Trey Biswas for evaluation of chest pain. HISTORY OF PRESENT ILLNESS: Ms. Samuels is a 59-year-old woman who was undergoing a routine physical evaluation by Dr. Biswas and complained of dyspnea on exertion. The patient had an exercise treadmill test performed which was stopped after two minutes because she achieved her peak heart rate of 172 early. She did not have symptoms of angina, excess dyspnea, or ECG changes. The Michel treadmill score was intermediate due to her poor exercise capacity. An echocardiogram dated 09/13/99 showed mild left ventricular hypertrophy. The patient has been seen by the offender employment specialist, who feels that her dyspnea is likely due to deconditioning and obesity, but recommends further cardiac workup. See Dr. Romeo's note, 10/10/99. The patient denies any angina per se. Cardiac risk factors are significant for postmenopausal status, negative for diabetes, negative for family history. However, her cholesterol is elevated at 217, LDL 130, HDL 64, she is sedentary, she is overweight, she has been on hormone replacement therapy, and she has newly been diagnosed with hypertension. PAST MEDICAL HISTORY: Left knee replacement. 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 Hysterectomy, age 33, on Premarin subsequently. Obesity. Hypertension, newly diagnosed. Complete review of systems otherwise negative. 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 She smoked cigarettes from age [age], one-half pack per day. She does not drink. She has three adopted children. Her is with her, his name is Jesús. Family history negative for coronary disease. MEDICATIONS: Synthroid 0.175 q. day, Premarin 0.625 q. day, Lasix 20 q. day, Daypro 600 q. day, amoxicillin p.r.n. ALLERGIES REPORTED TO TASHA. DATA: The patient had an adenosine sestamibi scan ordered due to her poor exercise tolerance. I personally reviewed this scan. It showed her ejection fraction as 61% with normal left ventricular geometry. She, however, had a very mild defect in the LAD territory from the apex to the base. This could either be due to breast attenuation or abnormal flow reserve due to coronary artery disease. OBJECTIVE: BP: 170/90 bilaterally by me, P: 80, Ht: 5'6, Wt: 216 lb. The patient is pleasant, alert, and oriented and appears overweight. She is in no apparent distress. We walked up and down the bermudez and she is, indeed, quite limited by her knee. The carotids have no bruits. The CHEST is clear to auscultation. HEART: S1 and P2 are normal. There are no rubs, murmurs, or gallops in the left lateral decub position. HEENT is negative for arcus or xanthelasma. ABDOMEN is nontender, nondistended, no bruits or masses. EXTREMITIES: No cyanosis, clubbing, or edema. Posterior tibial pulses are full. ASSESSMENT: 1. Dyspnea, possible silent ischemia versus false alarm nuclear cardiac scan. 2. Obesity and deconditioning. 3. Hypertension. PLAN: The patient's blood pressure is elevated today, was elevated on two other occasions. She has end-organ damage in terms of LVH on her echo. I have written a prescription for lisinopril 5 mg p.o. q. day, #90, which she will turn in for #90. I have discussed the indications, risks, benefits, and alternatives of this drug. I think this drug is logical, due to the recent information from the HOPE study showing a primary prevention effect from DIANA inhibitor. ABNORMAL ADENOSINE SCAN: Since the natural history of coronary artery disease can be impacted on by aspirin, lipid drugs, and DIANA inhibitors, I think it is important that we have a definitive diagnosis one way or the other. The adenosine scan suggested possible proximal LAD disease, and I think it is reasonable to either presume that she does have disease or perform an angiogram. I discussed these options with her and we will proceed with an angiogram this Sunday. This will hopefully also assist Dr. Biswas in her further management. If the angiogram is negative, which it very well may be, it would suggest that the nuclear scan was falsely positive. This can be seen in patients with very mild defects, of course. WEIGHT LOSS: Her hypertension is undoubtedly exacerbated by her weight and I have asked her to strictly try to lose some weight. I have written her a lab slip to follow up on her lisinopril in two weeks time. We will check a sodium and potassium. If her angiogram is normal, then I would recommend conditioning exercises. [address]1463, level 4. CC: TREY BISWAS MD JJM:[id number] C: DOCUMENT: [id number] SCHEDULED RESOURCE: RAJAT BROTHERS MD TENANCE HELPER Jaiden Romeo MD - 10/10/1999 12:01 AM CST Progress Notes signed by Jaiden Romeo MD at 12/27/00 1608 Author: Jaiden Romeo MD Service: (none) Author Type: Physician Filed: 11/30/10 1526 Note Time: 10/10/99 0001 Status: Signed Debarker Operator: Jaiden Romeo MD (Physician) IMPRESSION: Dyspnea. SUBJECTIVE: Mani is referred for evaluation of breathlessness by Dr. Biswas. The patient reports that she has mild dyspnea on exertion. She is able to walk 1/4 mile on flat ground; however, if she walks rapidly she gets more out of breath. She can walk 2-3 flights of stairs without stopping. She then recovers quite easily after that. There is no PND, orthopnea, cough or chest pain. She has never had hemoptysis, bronchitis, and no recent pneumonia. The patient reports that she has had a knee replacement and has severe DJD in the other knee and walks with a limp and with different lengths in her legs. She reports that she gets a lot of muscle fatigue and feels that some of her breathlessness is deconditioning and related to her muscle fatigue. She has never had wheezing or asthma. There is no PND or orthopnea. The patient has had a history of pneumonia but none since she was a child. There is no TB exposure. 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 She smoked [id number] but none for the last 30 years. She does report that she had an abnormal stress test and is currently undergoing an evaluation for that but has never had chest discomfort. PAST MEDICAL HISTORY is remarkable for: 1. Hysterectomy. 2. Hypothyroidism. 3. Arthritis. 4. Degenerative joint disease status post knee replacement. 5. History of colonic polyp. 6. History of functional heart murmur. 7. History of breast biopsy. 8. History of appendectomy. PERSONAL AND SOCIAL HISTORY: She is , has three adopted children. FAMILY HISTORY: Remarkable for rheumatic fever. REVIEW OF SYSTEMS: Is complete and is negative except for arthritis, as noted above. ALLERGY: DARVON. MEDICATIONS: Premarin, Synthroid, Lasix, Daypro. OBJECTIVE: BP: 150/86. P: 72. RR: 18. Ht: 66. Wt: 216. She is a well-nourished woman in no acute distress. NEUROLOGIC EXAM: Normal. HEENT AND NECK: Clear TMs, nasopharynx without lesions, oropharynx normal, PERRLA, EOMs intact, JVP is normal, pulses are intact, there is no thyromegaly, upper airway exam is normal. CHEST: Clear without crackles. CARDIAC EXAM: Regular rate and rhythm with no murmur appreciated. ABDOMEN: Obese and benign. EXTREMITIES: No edema. CHEST RADIOGRAPH is read as normal. PULMONARY FUNCTION TESTS: FEV1/FVC 2.10/2.47 (80/76%). There is no bronchodilator response. Midflow rates are normal. Flow volume loop is normal. ASSESSMENT: Dyspnea. I do not believe there is significant evidence of interstitial or a restrictive abnormality. Her pulmonary function tests are down slightly probably related to her obesity. Her dyspnea as best as she can assess is likely related to her disordered walking related to the knee replacement. She does not feel it is excessive. I find no abnormalities on her chest radiograph or clinical examination, and with just a mild decrement in her pulmonary function tests, I think this can be attributed to her obesity. I did, however, suggest strongly that she follow up on her cardiac evaluation, as she apparently had a hypertensive response to exercise, and she is going to take this quite seriously. She certainly could have an anginal equivalent in breathlessness, but this seems fairly regular with the same amount of exertion. I will, therefore, follow her up if she changes any symptomatology; otherwise, I will return her to Dr. Biswas's care. PLAN: See assessment. [facility]:[id number] C: DOCUMENT: [id number] Trey Biswas MD - 09/07/1999 12:01 AM CST Progress Notes signed by Trey Biswas MD at 09/13/99 1781 Author: Trey Biswas MD Service: (none) Author Type: Physician Filed: 11/30/10 1456 Note Time: 09/07/99 0001 Status: Signed Debarker Operator: Trey Biswas MD (Physician) IMPRESSION: Health care maintenance, chest pain, Hypothyroidism, hormone Replacement therapy, Edema SUBJECTIVE: The patient is a 59-year-old woman here for a physical. Please see the note of 07/19/98 for past medical history, family history and social history. Her chief concern today is that she gets short of breath when she is walking long distances. She has to go slowly because of her knee. The right one was replaced and now the left one is bothering her a lot. She notices over distance that she feels short of breath. She denies any chest pain, pressure, tightness, or wheezing. She has also noticed that coughing makes her eyes feel like they have pressure so she has been avoiding it but it does not seem to have any other effect. REVIEW OF SYSTEMS: She does wear glasses. No other eyes, ears, nose or throat concerns. No GI or concerns except that she has had a yeast infection and does get some discharge and has a little stress incontinence. She does need a repeat colonoscopy for a polyp this year. She has no particular skin concerns, fevers or chills or headaches. ALLERGIES: DARVON. MEDICATIONS: Lasix 20 mg a day. Synthroid 0.175. Daypro 600. Premarin 0.625. Amoxicillin 2 grams 1 hour before dental procedures because of the right knee replacement. OBJECTIVE: T: 97.2. BP: 142/94. P: 82. H: 5 ft 7 in. W: 219 lb which is up 8 lb from last year. Extraocular movements are intact. Pupils are equal and reactive to light. Vessels and discs are normal. TYMPANIC MEMBRANES: On the right is translucent. Light reflex from landmarks present. Left has scar tissue but the landmarks are still present. NOSE: Normal. OROPHARYNX: Benign. NECK: Supple without carotid bruit, thyroid enlargement, lymphadenopathy or JVD. LUNGS: Clear. CARDIOVASCULAR EXAM: Normal S1 and S2. Regular rate and rhythm with 2/6 systolic murmur heard best at the upper border. No supraclavicular or axillary lymphadenopathy. BREASTS: Symmetric without focal masses, dimpling or nipple discharge. ABDOMINAL EXAM: Bowel sounds are present. Soft and nontender. No hepatosplenomegaly. Overweight. Scars from prior surgery. VAGINAL EXAM: Normal external vulva and vagina. No evidence of yeast. No focal masses or adnexal tenderness. Pap not needed. Deep tendon reflexes are symmetric. Toes are down. Motor strength is intact upper and lower. Cranial nerves II-XII are intact. The patient is alert, oriented and cooperative. No clubbing, cyanosis or edema. Good peripheral pulses. ASSESSMENT: Healthcare maintenance. Healthy middle-aged woman. Shortness of breath. Differential includes deconditioning, some valve problem. Her sister recently had a mitral valve replaced. She had had an echocardiogram but she really did not know the results so I have repeated this. It could be atypical coronary artery disease so I will do a stress test, EKG and chest x-ray. Also, could be lung problem. She does not smoke. Will check pulmonary function tests. Risk factors for heart disease include age, overweight, and she said the Lasix was actually for edema and not hypertension. Follow up after testing. Left knee pain. Hypothyroidism. Hormone replacement therapy. Edema. PLAN: I will check a hemoglobin and a glucose and hemoglobin A1C because she is overweight. For screening exam, she had a breast exam and will follow up with a mammogram. She also needs a colonoscopy for the history of polyps. I have switched her Daypro to Sulindac 200 mg twice a day. She did not find the Glucosamine Chondroitin Sulfate to help so she has discontinued this. Followup with Orthopedics if this is not improved. I refilled her Synthroid and am checking a TSH. I refilled her Premarin. I refilled her Lasix and check a sodium, potassium and creatinine. Follow up in a year, sooner if needed except for the test results. JEV:[id number] C: DOCUMENT: [id number] TENANCE HELPER Trey Biswas MD - 07/19/1998 12:01 AM CST Progress Notes signed by Trey Biswas MD at 02/02/99 7043 Author: Trey Biswas MD Service: (none) Author Type: Physician Filed: 11/30/10 0750 Note Time: 07/19/98 0001 Status: Signed Debarker Operator: Trey Biswas MD (Physician) IMPRESSION: Health care maintenance. SUBJECTIVE: Mani Samuels is a 58-year-old woman here for a physical and transfer of care. She has several concerns. One is she has had a little bit of some nasal discharge that is clear recently and a little bit of sinus discomfort but that seems to be getting a little bit better. She does however have chronic feeling of plugging in her left ear with decreased hearing. The right ear occasionally plugs but corrects itself easily. Sensorineural hearing loss on the left was either from a viral infection or a stroke. Currently, she has a little bit of a nonproductive cough that is a tickle in the throat. She has a little bit of chronic shortness of breath but she is able to climb a flight of stairs all right. She has not had any fevers or chills. REVIEW OF SYSTEMS: She wears glasses. No other eye concerns. Occasional heartburn depending on what she eats. No nausea, vomiting or diarrhea, constipation, bloody stools or melena. She does have some stress incontinence with coughing but no dysuria. She was not complaining about vaginal discharge. Her left knee bothers her some. She is not ready to have it replaced. She has had a right knee replaced and her ankles bother her some and sometimes her right thumb. PAST MEDICAL HISTORY: 1. She is G0, P0. 2. Hysterectomy for endometriosis in 1972. 3. Hypothyroidism. 4. Arthritis. 5. Edema. 6. Colonic polyp. She is not sure if it is hyperplastic or adenomatous. She has done colonoscopy in about 1994. 7. 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 8. Heart murmur. She has had an echo, thought to be functional murmur. 9. 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 10. She has had a needle biopsy on her breast and also a breast biopsy; the former in 1996, the latter in 1972. 11. Bilateral bunionectomies. 12. Appendectomy. ADVERSE DRUG REACTIONS/DRUG INTOLERANCES: Tasha made her weak. MEDICATIONS: Glucosamine, chondroitin 250 mg 3 times a day, Lasix 20 mg a day, Synthroid 0.175 mg a day, Daypro 600 mg a day and Premarin 0.625 mg a day. IMMUNIZATIONS: Tetanus was today. SOCIAL HISTORY: She is . 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 She has three adopted children and four grandchildren. She quit smoking in 1969. Drinks about 1 glass of alcohol a month. She tries to watch her diet. Is not very successful. She does get her milk in her yogurt. She gets some exercise, particularly when she is in [place]. She gets water exercises. She wears her seat belt. Has no guns at home. She feels safe at home. FAMILY HISTORY: Her father at 80 of heart failure. His parents, grandfather was old and grandmother she does not know about. Her mother at 89 of a CVA. Her grandfather in his 80s of congestive heart failure and her grandmother at 89. Sister has arthritis and her brother has hypertension. OBJECTIVE: T: 97.9. BP1: 144/86. BP2: 150/90 with the large cuff. P: 88. Wt: 211. In general, she is an overweight middle-aged woman in no acute distress. Extraocular movements are intact. Pupils are equal and react to light. Cup to disc is sharp. Normal vessels. Tympanic membrane on the right is translucent with good light reflex and landmarks. On the left shows chronic sclerotic changes. Nose shows some mild erythema and edema. No sinus pressure to palpation. Oropharynx shows minimal erythema. Mild erythema. Neck is supple without lymphadenopathy or carotid bruit. Lungs are clear. Cardiovascular exam: Normal S1, S2, regular rate and rhythm with a 3/6 systolic murmur heard best at the upper border. There is no cervical, clavicular or axillary lymphadenopathy. Breasts are symmetric without dimpling, nipple discharge or masses. Abdominal exam: Bowel sounds are present, soft, nontender. Vaginal exam: Normal external vulva. There was a lot of yellowish discharge. Trichomonas and yeast and Pap were obtained. No focal masses or adnexal tenderness. Rectal confirmed the above. The right knee shows the surgical changes. The left does not extend or flex completely compared to the right. There is no swelling at the moment. No point tenderness today. When she stands her ankles and knees touch together but her right knee fully extends and her left knee does not. Does have full range of motion. She has good dorsalis pedis pulses. ASSESSMENT: 1. Health care maintenance. She is a healthy middle-aged woman. I am checking a complete blood count, glucose, hemoglobin A1C, and fractionated cholesterol for screening. She had a Pap done. She had a clinical breast exam. Will follow up with a mammogram. 2. 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 I am rechecking a TSH. 3. Lower extremity edema. She has about trace to 1+ edema today. She is on Lasix. I am checking a urine with microalbumin and sodium, potassium, BUN, creatinine. 4. Hormone replacement therapy. I renewed her Premarin. 5. Arthritis. She does have the arthritis in her left knee. If this worsens, she should follow up with Orthopedics. She does need amoxicillin 2 grams 1 hour before the dentist because of the right knee replacement. 6. Vaginitis. I did check a Trichomonas and yeast. She has been monogamous for multiple years so a STPD was not obtained. 7. Immunizations: Tetanus and flu shot were given today. 8. Colonic polyp. She will try and find out whether this was hyperplastic or adenomatous so that a follow up for either a flex or colonoscopy in several years can be determined. 9. Elevated blood pressure. I am having her check them once a week for a month and return in a month. 10. Viral illness. She has a very mild sore throat and nasal discharge and she should use the saline nasal spray and Sudafed for comfort. PLAN: N/A stw documented in this encounter Plan of Treatment Upcoming Encounters Date Type Specialty Care Team Description 09/29/2022 Appointment Rheumatology Kal Davila MD [id number] [place] [id number] (Wo rk) documented as of this encounter Procedures Procedure Name Priority Date/Time Associated Comments Diagnosis GLUCOSE Routine 07/25/2002 9:52 AM Results f or this MAINTENANCE HELPER procedure are i n the results section. THYROID STIMULATING Routine 07/25/2002 9:52 AM Re sults for this HORMONE MAINTENANCE HELPER procedure are i n the results section. LIPID PANEL AND Routine 07/25/2002 9:52 AM Result s for this DIRECT LDL(IF NEEDED) MAINTENANCE HELPER proced ure are in the results section. CREATININE / GFR Routine 07/25/2002 9:52 AM Resul ts for this MAINTENANCE HELPER procedure are i n the results section. ALBUMIN/CREAT RATIO Routine 07/25/2002 9:52 AM Re sults for this MAINTENANCE HELPER procedure are i n the results section. SODIUM Routine 07/25/2002 9:52 AM Results f or this MAINTENANCE HELPER procedure are i n the results section. POTASSIUM Routine 07/25/2002 9:52 AM Results f or this MAINTENANCE HELPER procedure are i n the results section. MM MAMMOGRAM DIAG Routine 06/17/2002 11:15 Result s for this BILAT AM MAINTENANCE HELPER procedure are i n the results section. MM MAMMOGRAM DIAG Routine 12/12/2001 2:15 PM Resu lts for this UNILAT EXTRA VIEW CDT procedure are in the results section. MM MAMMOGRAM DIAG Routine 11/30/2001 10:10 Result s for this BILAT W CAD AM CDT procedure are i n the results section. THYROID STIMULATING Routine 08/08/2001 4:33 PM Re sults for this HORMONE MAINTENANCE HELPER procedure are i n the results section. XR KNEE RT 2 VIEWS Routine 04/30/2001 9:05 AM Res ults for this CDT procedure are i n the results section. THYROID STIMULATING Routine 04/04/2001 9:31 AM Re sults for this HORMONE CDT procedure are i n the results section. THYROID STIMULATING Routine 01/15/2001 8:57 AM Re sults for this HORMONE CDT procedure are i n the results section. MM MAMMOGRAM Routine 11/21/2000 8:45 AM Results f or this SCREENING W CAD CDT procedure ar e in the results section. OCCULT BLOOD EXAM X 3 Routine 11/06/2000 1:30 PM Results for this MAINTENANCE HELPER procedure are i n the results section. XR KNEE RT 2 VIEWS Routine 10/30/2000 10:14 Resul ts for this AM MAINTENANCE HELPER procedure are i n the results section. GLUCOSE Routine 10/26/2000 1:50 PM Results f or this MAINTENANCE HELPER procedure are i n the results section. THYROID STIMULATING Routine 10/26/2000 1:50 PM Re sults for this HORMONE MAINTENANCE HELPER procedure are i n the results section. LIPID PANEL AND Routine 10/26/2000 1:50 PM Result s for this DIRECT LDL(IF NEEDED) MAINTENANCE HELPER proced ure are in the results section. CREATININE / GFR Routine 10/26/2000 1:50 PM Resul ts for this MAINTENANCE HELPER procedure are i n the results section. POTASSIUM Routine 10/26/2000 1:50 PM Results f or this MAINTENANCE HELPER procedure are i n the results section. CHLORIDE (CL) Routine 10/26/2000 1:50 PM Results for this MAINTENANCE HELPER procedure are i n the results section. BUN Routine 10/26/2000 1:50 PM Results f or this MAINTENANCE HELPER procedure are i n the results section. POTASSIUM Routine 05/02/2000 9:30 AM Results f or this CDT procedure are i n the results section. XR KNEE AND PATELLA Routine 01/17/2000 9:53 AM Re sults for this CDT procedure are i n the results section. CREATININE / GFR Routine 12/02/1999 4:23 PM Resul ts for this CDT procedure are i n the results section. SODIUM Routine 12/02/1999 4:23 PM Results f or this CDT procedure are i n the results section. POTASSIUM Routine 12/02/1999 4:23 PM Results f or this CDT procedure are i n the results section. BUN Routine 12/02/1999 4:23 PM Results f or this CDT procedure are i n the results section. MM MAMMOGRAM Routine 11/17/1999 8:30 AM Results f or this SCREENING W CAD CDT procedure ar e in the results section. CREATININE / GFR Routine 10/31/1999 8:33 AM Resul ts for this MAINTENANCE HELPER procedure are i n the results section. POTASSIUM Routine 10/31/1999 8:33 AM Results f or this MAINTENANCE HELPER procedure are i n the results section. BUN Routine 10/31/1999 8:33 AM Results f or this MAINTENANCE HELPER procedure are i n the results section. XR CHEST PA WITH Routine 09/07/1999 10:55 Results for this LATERAL AM MAINTENANCE HELPER procedure are i n the results section. GLUCOSE Routine 09/07/1999 10:37 Results for this AM MAINTENANCE HELPER procedure are i n the results section. THYROID STIMULATING Routine 09/07/1999 10:37 Resu lts for this HORMONE AM MAINTENANCE HELPER procedure are i n the results section. CREATININE / GFR Routine 09/07/1999 10:37 Results for this AM MAINTENANCE HELPER procedure are i n the results section. HEMOGLOBIN, BLOOD Routine 09/07/1999 10:37 Result s for this AM MAINTENANCE HELPER procedure are i n the results section. HGB A1C Routine 09/07/1999 10:37 Results for this AM MAINTENANCE HELPER procedure are i n the results section. SODIUM Routine 09/07/1999 10:37 Results for this AM MAINTENANCE HELPER procedure are i n the results section. POTASSIUM Routine 09/07/1999 10:37 Results for this AM MAINTENANCE HELPER procedure are i n the results section. BUN Routine 09/07/1999 10:37 Results for this AM MAINTENANCE HELPER procedure are i n the results section. MM MAMMOGRAM Routine 08/10/1998 8:00 AM Results f or this SCREENING W CAD MAINTENANCE HELPER procedure ar e in the results section. GLUCOSE Routine 07/19/1998 10:39 Results for this AM MAINTENANCE HELPER procedure are i n the results section. THYROID STIMULATING Routine 07/19/1998 10:39 Resu lts for this HORMONE AM MAINTENANCE HELPER procedure are i n the results section. WET PREP PARK Routine 07/19/1998 10:39 Results fo r this [facility] AM MAINTENANCE HELPER procedure ar e in the results section. URINALYSIS COMPLETE Routine 07/19/1998 10:39 Resu lts for this AM MAINTENANCE HELPER procedure are i n the results section. LIPID PANEL AND Routine 07/19/1998 10:39 Results for this DIRECT LDL(IF NEEDED) AM MAINTENANCE HELPER proced ure are in the results section. CREATININE / GFR Routine 07/19/1998 10:39 Results for this AM MAINTENANCE HELPER procedure are i n the results section. COMPLETE BLOOD Routine 07/19/1998 10:39 Results f or this COUNT-NO DIFF AM MAINTENANCE HELPER procedure are in the results section. ALBUMIN/CREAT RATIO Routine 07/19/1998 10:39 Resu lts for this AM MAINTENANCE HELPER procedure are i n the results section. HGB A1C Routine 07/19/1998 10:39 Results for this AM MAINTENANCE HELPER procedure are i n the results section. SODIUM Routine 07/19/1998 10:39 Results for this AM MAINTENANCE HELPER procedure are i n the results section. POTASSIUM Routine 07/19/1998 10:39 Results for this AM MAINTENANCE HELPER procedure are i n the results section. BUN Routine 07/19/1998 10:39 Results for this AM MAINTENANCE HELPER procedure are i n the results section. ANATOMICAL PATH-C Routine 07/19/1998 7:35 AM Resu lts for this MAINTENANCE HELPER procedure are i n the results section. documented in this encounter Results (ABNORMAL) Lipid Panel and Direct LDL(If Needed) (07/25/2002 9:52 AM MAINTENANCE HELPER) [facility] gist Method Time Signature Length Of Fast 14.0 Hours HP CONVERSION Cholesterol/HDL 4.3 No normal HP CONVERSION Ratio Screen range Cholesterol 226 (H) 125 - 199 HP CONVERSION mg/dL HDL Cholesterol 52 40 - 60 HP CONVERSION mg/dL Triglycerides 172 0 - 199 HP CONVERSION mg/dL XCALC LDL 140 (H) 66 - 129 HP CONVERSION (Original mg/dL [place]) Comment: Specimen (Source) Anatomical Collection Method Collection Time Re ceived Time Location / / Volume Laterality 07/25/2002 9:52 AM MAINTENANCE HELPER Radha Martinez MD LAB_1 Performing Organization Address City/State/ZIP Code Phon e Number HP CONVERSION Sodium (07/25/2002 9:52 AM MAINTENANCE HELPER) athologist Signature Sodium 141 137 - 147 HP CONVERSION meq/L Specimen (Source) Anatomical Collection Method Collection Time Re ceived Time Location / / Volume Laterality 07/25/2002 9:52 AM MAINTENANCE HELPER Radha Martinez MD LAB_1 Performing Organization Address City/State/ZIP Code Phon e Number HP CONVERSION Potassium (07/25/2002 9:52 AM MAINTENANCE HELPER) athologist Signature Potassium 4.4 3.5 - 5.2 HP CONVERSION meq/L Specimen (Source) Anatomical Collection Method Collection Time Re ceived Time Location / / Volume Laterality 07/25/2002 9:52 AM MAINTENANCE HELPER Radha Martinez MD LAB_1 Performing Organization Address City/State/ZIP Code Phon e Number HP CONVERSION (ABNORMAL) Thyroid Stimulating Hormone (07/25/2002 9:52 AM MAINTENANCE HELPER) Patholo gist Method Time Signature Thyroid 0.03 (L) 0.20 - HP CONVERSION Stimulating 5.50 Hormone uIU/mL Specimen (Source) Anatomical Collection Method Collection Time Re ceived Time Location / / Volume Laterality 07/25/2002 9:52 AM MAINTENANCE HELPER Radha Martinez MD LAB_1 Performing Organization Address [facility] Phon e Number HP CONVERSION Glucose (07/25/2002 9:52 AM MAINTENANCE HELPER) P athologist Signature Length Of Fast 14.0 Hours HP CONVERSION Lab Glucose 95 60 - 109 HP CONVERSION mg/dL Specimen (Source) Anatomical Collection Method Collection Time Re ceived Time Location / / Volume Laterality 07/25/2002 9:52 AM MAINTENANCE HELPER Radha Martinez MD LAB_1 Performing Organization Address [facility] Code Phon e Number HP CONVERSION Creatinine / GFR (07/25/2002 9:52 AM MAINTENANCE HELPER) athologist Signature Creatinine 0.8 0.5 - 1.5 HP CONVERSION Serum mg/dL Specimen (Source) Anatomical Collection Method Collection Time Re ceived Time Location / / Volume Laterality 07/25/2002 9:52 AM MAINTENANCE HELPER Radha Martinez MD LAB_1 Performing Organization Address City/[facility]/ZIP Code Phon e Number HP CONVERSION Microalb/Creat Ratio (07/25/2002 9:52 AM MAINTENANCE HELPER) Analysis Performed At Patho logist Time Signature U Creat Random 142 mg/dL HP CONVERSION Microalbumin 3.8 0.0 - 30.0 HP CONVERSION Urine mg/L Microalbumin/Crea 2.7 0.0 - 30.0 HP CONVERSI ON tinine Ratio mg/G Specimen (Source) Anatomical Collection Method Collection Time Re ceived Time Location / / Volume Laterality 07/25/2002 9:52 AM MAINTENANCE HELPER Radha Martinez MD LAB_1 Performing Organization Address City/[facility] Phon e Number HP CONVERSION MM Mammogram Diag Bilat (06/17/2002 11:15 AM MAINTENANCE HELPER) Anatomical Region Laterality Modality Breast Bilateral Mammography Specimen (Source) Anatomical Location Collection Method / Collectio n Time Received Time / Laterality Volume Impressions 06/17/2002 11:15 AM MAINTENANCE HELPER : ?ACR-BIRADS CATEGORY 3: PROBABLY BE NIGN FINDING - SHORT ?INTERVAL FOLLOW-UP. FINDINGS: ?MAGNIFICATION VIEWS OF THE RIGHT B REAST ARE DONE A ?FOLLOWUP TO THE SCREENING EXAM PER FORMED ON 11/30/01 WITH ?MAGNIFICATION ON 12/12/01. MICROCA LCIFICATIONS SEEN AT THAT ?TIME ARE EVEN LESS OBVIOUS TODAY I N THE SUBAREOLAR REGION. ?OTHER SCATTERED CALCIFICATIONS ELLY EAR BENIGN. THERE ARE ?SEVERAL SMALL NODULAR DENSITIES IN THE BREASTS AGAIN NOTED. ?NO EVIDENCE FOR MALIGNANCY. PATIEN T WILL BE CALLED BACK FOR ?HER BILATERAL SCREENING EXAM FOR W ALESHIA SHE WILL BE DUE IN ?11/13. ?[id number] TECH-ID : TRANS-ID: ? EDR Narrative 06/17/2002 11:15 AM MAINTENANCE HELPER SEVERITY: 2 CLINICAL DATA: ?PREVIOUS F/U SEV OF 2 ON RSLT# [id number] ?THREE TO SIX MONTH FOLLOW UP NEEDE D Procedure Note Florencia Kearney MD - 10/15/2016Fo rmatting of this note might be different from the original. SEVERITY: 2 CLINICAL DATA: PREVIOUS F/U SEV OF 2 ON RSLT# [id number] THREE TO SIX MONTH FOLLOW UP NEEDED IMPRESSION : ACR-BIRADS CATEGORY 3: PROBABLY BENIGN FINDING - SHORT INTERVAL FOLLOW-UP. FINDINGS: MAGNIFICATION VIEWS OF THE RIGHT BREAST ARE DONE A FOLLOWUP TO THE SCREENING EXAM PERFORME D ON 11/30/01 WITH MAGNIFICATION ON 12/12/01. MICROCALCIFI CATIONS SEEN AT THAT TIME ARE EVEN LESS OBVIOUS TODAY IN THE SUBAREOLAR REGION. OTHER SCATTERED CALCIFICATIONS APPEAR B ENIGN. THERE ARE SEVERAL SMALL NODULAR DENSITIES IN THE BREASTS AGAIN NOTED. NO EVIDENCE FOR MALIGNANCY. PATIENT DONNELL Vaca BE CALLED BACK FOR HER BILATERAL SCREENING EXAM FOR WHICH SHE WILL BE DUE IN 11/13. [id number] TECH-ID : TRANS-ID: EDR Florencia Munson RAD AMBER MM Mammogram Diag Unilat Extra View (12/12/2001 2:15 PM CDT) Anatomical Region Laterality Modality Breast Mammography Specimen (Source) Anatomical Location Collection Method / Collectio n Time Received Time / Laterality Volume Impressions 12/12/2001 2:15 PM CDT : ?ACR-BIRADS CATEGORY 3: PROBABLY BE NIGN FINDING - SHORT ?INTERVAL FOLLOW-UP. ?[id number] FINDINGS: ?MAGNIFICATION VIEWS ARE DONE OF TH E LEFT BREAST A ?FOLLOWUP TO THE SCREENING EXAM ON 11/30/01 LOOKING AT TWO ?SPECIFIC AREAS OF MICROCALCIFICATI ONS, ONE IN THE ANTERIOR ?BREAST AND ONE IN THE FAR POSTERIO R BREAST. IN THE POSTERIOR ?BREAST THIS IS INDETERMINATE BY TH E APPEARANCE OF THE ?CALCIFICATIONS, HOWEVER, THESE WER E PRESENT ON THE PREVIOUS ?EXAM ON 11/21/00 AND HAVE NOT REHMAN GED. 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 IN THE ANTERIOR BR EAST THERE IS A VERY SMALL ?CLUSTER IN THE SUBAREOLAR REGION A ND THESE APPEAR BENIGN ON ?THE MAGNIFICATION VIEWS. TO DOCUME NT STABILITY OF THE ?FINDINGS A SIX MONTH FOLLOWUP WILL BE REQUESTED AND THE ?PATIENT SHOULD BE CALLED BACK BY T HIS DEPARTMENT FOR THAT ?EXAM. TECH-ID : TRANS-ID: ? EDR Narrative 12/12/2001 2:15 PM CDT SEVERITY: 2 CLINICAL DATA: ?PREVIOUS F/U SEV OF 3 ON RSLT# [id number] ?MAGS MICROS RT BREAST Procedure Note Florencia Kearney MD - 10/20/2016Fo rmatting of this note might be different from the original. SEVERITY: 2 CLINICAL DATA: PREVIOUS F/U SEV OF 3 ON RSLT# [id number] MAGS MICROS RT BREAST IMPRESSION : ACR-BIRADS CATEGORY 3: PROBABLY BENIGN FINDING - SHORT INTERVAL FOLLOW-UP. [id number] FINDINGS: MAGNIFICATION VIEWS ARE DONE OF THE LEF T BREAST A FOLLOWUP TO THE SCREENING EXAM ON 11/30 LOOKING AT TWO SPECIFIC AREAS OF MICROCALCIFICATIONS, ONE IN THE ANTERIOR BREAST AND ONE IN THE FAR POSTERIOR LAUREN AST. IN THE POSTERIOR BREAST THIS IS INDETERMINATE BY THE ELLY EARANCE OF THE CALCIFICATIONS, HOWEVER, THESE WERE PRE SENT ON THE PREVIOUS EXAM ON 11/21/00 AND HAVE NOT CHANGED. THERE ARE MICROCALCIFICATIONS IN THE UPPER OUTER QUADRANT AGAIN ON MAGNIFICATION VIEW THESE DO NOT APPEAR SUSPICIOUS AND ARE MOST CONSISTENT WITH SCATTERED FIBROCYS TIC TYPE CALCIFICATIONS. IN THE ANTERIOR BREAST THERE IS A VERY SMALL CLUSTER IN THE SUBAREOLAR REGION AND TH GOPAL APPEAR BENIGN ON THE MAGNIFICATION VIEWS. TO DOCUMENT ST ABILITY OF THE FINDINGS A SIX MONTH FOLLOWUP WILL BE R EQUESTED AND THE PATIENT SHOULD BE CALLED BACK BY THIS D EPARTMENT FOR THAT EXAM. TECH-ID : TRANS-ID: EDR Florencia Munson RAD AMBER MM Mammogram Diag Bilat W CAD (11/30/2001 10:10 AM CDT) Anatomical Region Laterality Modality Breast Bilateral Mammography Specimen (Source) Anatomical Location Collection Method / Collectio n Time Received Time / Laterality Volume Impressions 11/30/2001 10:10 AM CDT : ?NEW GROUP OF MICROCALCIFICATIONS B EST VISUALIZED IN THE CC ?VIEW BEHIND THE NIPPLE. MAGNIFICAT ION VIEWS WILL BE ORDERED ?BY RADIOLOGY FOR FURTHER EVALUATIO N. ?ACR-BIRADS CATEGORY 0: NEED ADDITI ONAL IMAGING EVALUATION. ?MAGNIFICATION VIEWS FOR MICROS LEF T BREAST CC VIEW. ?[id number] FINDINGS: ?THERE IS A NEW CLUSTER OF MICROCAL CIFICATIONS MEASURING 6 X ?4 MM BEHIND THE NIPPLE OF THE LEFT BREAST ON THE CC VIEW. ?THESE WERE NOT PRESENT PREVIOUSLY. [place] DOWN COMPRESSION ?MAGNIFICATION VIEWS WILL BE OBTAIN ED FOR FURTHER EVALUATION. ?RIGHT BREAST SHOWS BENIGN SCATTERE D MICROCALCIFICATIONS THAT ?REMAIN STABLE. NO CHANGE 11/17/99. TECH-ID : ? VV TRANS-ID: ? EDR Narrative 11/30/2001 10:10 AM CDT SEVERITY: 3 CLINICAL DATA: ?YEARLY MAMMOGRAM ?[facility] AT [facility] Procedure Note Dario Singh MD - 10/20/2016Format ting of this note might be different from the original. SEVERITY: 3 CLINICAL DATA: YEARLY MAMMOGRAM [facility] AT [facility] IMPRESSION : NEW GROUP OF MICROCALCIFICATIONS BEST V ISUALIZED IN THE CC VIEW BEHIND THE NIPPLE. MAGNIFICATION V IEWS WILL BE ORDERED BY RADIOLOGY FOR FURTHER EVALUATION. ACR-BIRADS CATEGORY 0: NEED ADDITIONAL IMAGING EVALUATION. MAGNIFICATION VIEWS FOR MICROS LEFT LAUREN AST CC VIEW. [id number] FINDINGS: THERE IS A NEW CLUSTER OF MICROCALCIFIC ATIONS MEASURING 6 X 4 MM BEHIND THE NIPPLE OF THE LEFT JOSELYN ST ON THE CC VIEW. THESE WERE NOT PRESENT PREVIOUSLY. [place] DOWN COMPRESSION MAGNIFICATION VIEWS WILL BE OBTAINED FO R FURTHER EVALUATION. RIGHT BREAST SHOWS BENIGN SCATTERED YUMIKO ROCALCIFICATIONS THAT REMAIN STABLE. NO CHANGE 11/17/99. TECH-ID : VV TRANS-ID: EDR Florencia Munson RAD AMBER (ABNORMAL) Thyroid Stimulating Hormone (08/08/2001 4:33 PM MAINTENANCE HELPER) Drivr gist Method Time Signature Thyroid 0.17 (LL) 0.20 - HP CONVERSION Stimulating 5.50 Hormone uIU/mL Specimen (Source) Anatomical Collection Method Collection Time Re ceived Time Location / / Volume Laterality 08/08/2001 4:33 PM MAINTENANCE HELPER Marti Gay MD LAB_1 Performing Organization Address City/State/ZIP Code Phon e Number HP CONVERSION XR Knee Rt 2 Views (04/30/2001 9:05 AM CDT) Anatomical Region Laterality Modality Lower Extremity, Knee Other Specimen (Source) Anatomical Location Collection Method / Collectio n Time Received Time / Laterality Volume Narrative 04/30/2001 9:05 AM CDT CLINICAL DATA: ?TKN FINDINGS: ?STATUS POST TOTAL KNEE ARTHROPLAST Y WITH GOOD ALIGNMENT AND ?NO EVIDENCE FOR COMPLICATION. ?RR TECH-ID : ? DDC TRANS-ID: ? EDR Procedure Note Paul Moctezuma - 10/20/2016 CLINICAL DATA: TKN FINDINGS: STATUS POST TOTAL KNEE ARTHROPLASTY WIT H GOOD ALIGNMENT AND NO EVIDENCE FOR COMPLICATION. RR TECH-ID : DDC TRANS-ID: EDR Wilder Angel MD RAD GD (ABNORMAL) Thyroid Stimulating Hormone (04/04/2001 9:31 AM CDT) [employer] gist Method Time Signature Thyroid 0.11 (LL) 0.20 - HP CONVERSION Stimulating 5.50 Hormone uIU/mL Specimen (Source) Anatomical Collection Method Collection Time Re ceived Time Location / / Volume Laterality 04/04/2001 9:31 AM CDT Azalea Talbot MD LAB_1 Performing Organization Address City/State/ZIP Code Phon e Number HP CONVERSION (ABNORMAL) Thyroid Stimulating Hormone (01/15/2001 8:57 AM CDT) [employer] Method Time Signature Thyroid 0.11 (LL) 0.20 - HP CONVERSION Stimulating 5.50 Hormone uIU/mL Specimen (Source) Anatomical Collection Method Collection Time Re ceived Time Location / / Volume Laterality 01/15/2001 8:57 AM CDT Azalea Talbot MD LAB_1 Performing Organization Address City/State/ZIP Code Phon e Number HP CONVERSION MM Mammogram Screening W CAD (11/21/2000 8:45 AM CDT) Anatomical Region Laterality Modality Breast Bilateral Mammography Specimen (Source) Anatomical Location Collection Method / Collectio n Time Received Time / Laterality Volume Impressions 11/21/2000 8:45 AM CDT : ?? NO MAMMOGRAPHIC EVIDENCE OF MALIGNAN CY. ACR-BIRADS CATEGORY 1: ??NEGATIVE. FINDINGS: ?? M4U ?? THE BREAST TISSUE IS MODERATELY TO M ARKEDLY DENSE, WHICH COULD ?? OBSCURE A LESION ON MAMMOGRAPHY. ??T HERE ARE NO SUSPICIOUS ?? MASSES OR CALCIFICATIONS. ?? NO CHANGE IN APPEARANCE FROM 0. TECH-ID : ? DMP TRANS-ID: Narrative 11/21/2000 8:45 AM CDT SEVERITY: 1 CLINICAL DATA: ?YEARLY LAST ONE/11/17/99/ Procedure Note Rajat Mcclellan - 10/15/2016Formattin g of this note might be different from the original. SEVERITY: 1 CLINICAL DATA: YEARLY LAST ONE/11/17/99/ IMPRESSION : NO MAMMOGRAPHIC EVIDENCE OF MALIGNANCY. ACR-BIRADS CATEGORY 1: NEGATIVE. FINDINGS: M4U THE BREAST TISSUE IS MODERATELY TO WILDER EDLY DENSE, WHICH COULD OBSCURE A LESION ON MAMMOGRAPHY. THERE ARE NO SUSPICIOUS MASSES OR CALCIFICATIONS. NO CHANGE IN APPEARANCE FROM 11/17/99. TECH-ID : DMP TRANS-ID: Azalea Talbot MD RAD AMBER Occult Blood Exam X 3 (11/06/2000 1:30 PM MAINTENANCE HELPER) Patholo gist Method Time Signature Occult Blood, Negative Negative HP CONVERSION Stool #1 Occult Blood, Negative Negative HP CONVERSION Stool #2 Occult Blood, Negative Negative HP CONVERSION Stool #3 Date/Time #1 [id number] No normal HP CONVERSION range Date/Time #2 618722 No normal HP CONVERSION range Date/Time #3 973041 No normal HP CONVERSION range Specimen (Source) Anatomical Collection Method Collection Time Re ceived Time Location / / Volume Laterality 11/06/2000 1:30 PM MAINTENANCE HELPER Azalea Talbot MD LAB_1 Performing Organization Address [facility] Phon e Number HP CONVERSION XR Knee Rt 2 Views (10/30/2000 10:14 AM MAINTENANCE HELPER) Anatomical Region Laterality Modality Lower Extremity, Knee Other Specimen (Source) Anatomical Location Collection Method / Collectio n Time Received Time / Laterality Volume Narrative 10/30/2000 10:14 AM MAINTENANCE HELPER CLINICAL DATA: ?PAIN. FINDINGS: ?AP AND LATERAL VIEWS OF BOTH KNEES DATED 10/30/00 ?DEMONSTRATE BILATERAL TOTAL KNEE A RTHROPLASTIES. ?RELATIONSHIP OF THE PROSTHESES TO THE DISTAL FEMURS, ?PROXIMAL TIBIAS, AND PATELLAS IS S ATISFACTORY. ?MT/CAR TECH-ID : ? BAL TRANS-ID: ? EDR Procedure Note Ced Rubio - 10/15/2016 CLINICAL DATA: PAIN. FINDINGS: AP AND LATERAL VIEWS OF BOTH KNEES DATE D 10/30/00 DEMONSTRATE BILATERAL TOTAL KNEE ARTHRO PLASTIES. RELATIONSHIP OF THE PROSTHESES TO THE D ISTAL FEMURS, PROXIMAL TIBIAS, AND PATELLAS IS SATISF ACTORY. MT/CAR TECH-ID : BAL TRANS-ID: EDR Wilder Angel MD RAD GD BUN (10/26/2000 1:50 PM MAINTENANCE HELPER) P athologist Signature Blood Urea 16 5 - 26 HP CONVERSION Nitrogen mg/dL Specimen (Source) Anatomical Collection Method Collection Time Re ceived Time Location / / Volume Laterality 10/26/2000 1:50 PM MAINTENANCE HELPER Azalea Talbot MD LAB_1 Performing Organization Address [facility] Phon e Number HP CONVERSION Chloride (CL) (10/26/2000 1:50 PM MAINTENANCE HELPER) athologist Signature Chloride 101 98 - 110 HP CONVERSION meq/L Specimen (Source) Anatomical Collection Method Collection Time Re ceived Time Location / / Volume Laterality 10/26/2000 1:50 PM MAINTENANCE HELPER Azalea Talbot MD LAB_1 Performing Organization Address City/State/ZIP Code Phon e Number HP CONVERSION Creatinine / GFR (10/26/2000 1:50 PM MAINTENANCE HELPER) athologist Signature Creatinine 1.0 0.5 - 1.5 HP CONVERSION Serum mg/dL Specimen (Source) Anatomical Collection Method Collection Time Re ceived Time Location / / Volume Laterality 10/26/2000 1:50 PM MAINTENANCE HELPER Azalea Talbot MD LAB_1 Performing Organization Address City/State/ZIP Code Phon e Number HP CONVERSION Glucose (10/26/2000 1:50 PM MAINTENANCE HELPER) athologist Signature Length Of Fast 12.0 8.0 - 24.0 HP CONVERSION Hours Lab Glucose 93 60 - 109 HP CONVERSION mg/dL Specimen (Source) Anatomical Collection Method Collection Time Re ceived Time Location / / Volume Laterality 10/26/2000 1:50 PM MAINTENANCE HELPER Azalea Talbot MD LAB_1 Performing Organization Address City/[facility]/ZIP Code Phon e Number HP CONVERSION Potassium (10/26/2000 1:50 PM MAINTENANCE HELPER) athologist Signature Potassium 4.4 3.5 - 5.2 HP CONVERSION meq/L Specimen (Source) Anatomical Collection Method Collection Time Re ceived Time Location / / Volume Laterality 10/26/2000 1:50 PM MAINTENANCE HELPER Azalea Talbot MD LAB_1 Performing Organization Address City/State/ZIP Code Phon e Number HP CONVERSION (ABNORMAL) Lipid Panel and Direct LDL(If Needed) (10/26/2000 1:50 PM MAINTENANCE HELPER) [facility] gist Method Time Signature Length Of Fast 12.0 8.0 - 24.0 HP CONVERSION Hours Cholesterol/HDL 4.5 No normal HP CONVERSION Ratio Screen range Cholesterol 210 (HH) 125 - 199 HP CONVERSION mg/dL HDL Cholesterol 47 36 - 80 HP CONVERSION mg/dL Triglycerides 166 0 - 250 HP CONVERSION mg/dL LDL Calculated 130 (HH) 66 - 129 HP CONVERSION mg/dL Comment: Fasting status adequate. Specimen (Source) Anatomical Collection Method Collection Time Re ceived Time Location / / Volume Laterality 10/26/2000 1:50 PM MAINTENANCE HELPER Azalea Talbot MD LAB_1 Performing Organization Address [facility]/ZIP [facility] Phon e Number HP CONVERSION (ABNORMAL) Thyroid Stimulating Hormone (10/26/2000 1:50 PM MAINTENANCE HELPER) Patholo gist Method Time Signature Thyroid <0.03 (A) 0.20 - HP CONVERSION Stimulating 5.50 Hormone uIU/mL Specimen (Source) Anatomical Collection Method Collection Time Re ceived Time Location / / Volume Laterality 10/26/2000 1:50 PM MAINTENANCE HELPER Azalea Talbot MD LAB_1 Performing Organization Address [facility] Phon e Number HP CONVERSION Potassium (05/02/2000 9:30 AM CDT) P athologist Signature Potassium 4.2 3.5 - 5.2 HP CONVERSION meq/L Specimen (Source) Anatomical Collection Method Collection Time Re ceived Time Location / / Volume Laterality 05/02/2000 9:30 AM CDT Jamaal De La Garza MD LAB_1 Performing Organization Address [facility] Phon e Number HP CONVERSION XR Knee And Patella (01/17/2000 9:53 AM CDT) Anatomical Region Laterality Modality Other Specimen (Source) Anatomical Location Collection Method / Collectio n Time Received Time / Laterality Volume Narrative 01/17/2000 9:53 AM CDT CLINICAL DATA: ?PAIN. FINDINGS: ?MT([id number]) ?TOTAL KNEE ARTHROPLASTY ON THE RIG HT. ??LEFT KNEE SHOWS ?MARKED NARROWING OF THE MEDIAL COM PARTMENT. ??HYPERTROPHIC ?CHANGES IN THE PATELLOFEMORAL JOIN T ESPECIALLY LATERALLY AND ?SUPERIORLY. TECH-ID : TRANS-ID: ? EDR Procedure Note Paul Moctezuma - 10/15/2016 CLINICAL DATA: PAIN. FINDINGS: MT([id number]) TOTAL KNEE ARTHROPLASTY ON THE RIGHT. L EFT KNEE SHOWS MARKED NARROWING OF THE MEDIAL COMPARTM ENT. HYPERTROPHIC CHANGES IN THE PATELLOFEMORAL JOINT ALEX ECIALLY LATERALLY AND SUPERIORLY. TECH-ID : TRANS-ID: EDR Wilder Angel MD RAD GD BUN (12/02/1999 4:23 PM CDT) athologist Signature Blood Urea 18 5 - 26 HP CONVERSION Nitrogen mg/dL Specimen (Source) Anatomical Collection Method Collection Time Re ceived Time Location / / Volume Laterality 12/02/1999 4:23 PM CDT Trey Biswas MD LAB_1 Performing Organization Address [facility] Phon e Number HP CONVERSION Creatinine / GFR (12/02/1999 4:23 PM CDT) athologist Signature Creatinine 0.9 0.5 - 1.5 HP CONVERSION Serum mg/dL Specimen (Source) Anatomical Collection Method Collection Time Re ceived Time Location / / Volume Laterality 12/02/1999 4:23 PM CDT Trey Biswas MD LAB_1 Performing Organization Address [facility] Phon e Number HP CONVERSION Potassium (12/02/1999 4:23 PM CDT) athologist Signature Potassium 3.8 3.5 - 5.2 HP CONVERSION meq/L Specimen (Source) Anatomical Collection Method Collection Time Re ceived Time Location / / Volume Laterality 12/02/1999 4:23 PM CDT Trey Biswas MD LAB_1 Performing Organization Address [facility] Phon e Number HP CONVERSION (ABNORMAL) Sodium (12/02/1999 4:23 PM CDT) athologist Signature Sodium 136 (LL) 137 - 147 HP CONVERSION meq/L Specimen (Source) Anatomical Collection Method Collection Time Re ceived Time Location / / Volume Laterality 12/02/1999 4:23 PM CDT Trey Biswas MD LAB_1 Performing Organization Address [facility] Phon e Number HP CONVERSION MM Mammogram Screening W CAD (11/17/1999 8:30 AM CDT) Anatomical Region Laterality Modality Breast Bilateral Mammography Specimen (Source) Anatomical Location Collection Method / Collectio n Time Received Time / Laterality Volume Impressions 11/17/1999 8:30 AM CDT : ?NO MAMMOGRAPHIC EVIDENCE OF MALIGN CAMERON. ??YEARLY SCREENING ?RECOMMENDED. ?ACR-BIRADS CATEGORY 2: BENIGN FIND ING. FINDINGS: ?NO CHANGE SINCE 08/10/98. ??THE MA MMARY PARENCHYMA IS MODERATELY ?DENSE AND THERE ARE BILATERAL CLUS TERED AND NONCLUSTERED ?BENIGN-APPEARING CALCIFICATIONS. ? ?ONE GROUP ON THE LEFT POSTERIORLY ?IS A LITTLE MORE TIGHTLY CLUSTERED BUT UNCHANGED. TECH-ID : ? RE TRANS-ID: ? QTR Narrative 11/17/1999 8:30 AM CDT SEVERITY: 1 CLINICAL DATA: ?YEARLY ?LAST ONE 08/10/98 ?? 1V Procedure Note Ant Larson Lizzy - 10/15/2016Formattin g of this note might be different from the original. SEVERITY: 1 CLINICAL DATA: YEARLY LAST ONE 08/10/98 1V IMPRESSION : NO MAMMOGRAPHIC EVIDENCE OF MALIGNANCY. YEARLY SCREENING RECOMMENDED. ACR-BIRADS CATEGORY 2: BENIGN FINDING. FINDINGS: NO CHANGE SINCE 08/10/98. THE MAMMARY P ARENCHYMA IS MODERATELY DENSE AND THERE ARE BILATERAL CLUSTERED AND NONCLUSTERED BENIGN-APPEARING CALCIFICATIONS. ONE GR OUP ON THE LEFT POSTERIORLY IS A LITTLE MORE TIGHTLY CLUSTERED BUT UNCHANGED. TECH-ID : RE TRANS-ID: QTR Trey Biswas MD RAD AMBER BUN (10/31/1999 8:33 AM MAINTENANCE HELPER) athologist Signature Blood Urea 18 5 - 26 HP CONVERSION Nitrogen mg/dL Specimen (Source) Anatomical Collection Method Collection Time Re ceived Time Location / / Volume Laterality 10/31/1999 8:33 AM MAINTENANCE HELPER Rajat Brothers MD LAB_1 Performing Organization Address City/State/ZIP Code Phon e Number HP CONVERSION Creatinine / GFR (10/31/1999 8:33 AM MAINTENANCE HELPER) athologist Signature Creatinine 1.0 0.5 - 1.5 HP CONVERSION Serum mg/dL Specimen (Source) Anatomical Collection Method Collection Time Re ceived Time Location / / Volume Laterality 10/31/1999 8:33 AM MAINTENANCE HELPER Rajat Brothers MD LAB_1 Performing Organization Address City/State/ZIP Code Phon e Number HP CONVERSION Potassium (10/31/1999 8:33 AM MAINTENANCE HELPER) athologist Signature Potassium 4.2 3.5 - 5.2 HP CONVERSION meq/L Specimen (Source) Anatomical Collection Method Collection Time Re ceived Time Location / / Volume Laterality 10/31/1999 8:33 AM MAINTENANCE HELPER Rajat Brothers MD LAB_1 Performing Organization Address City/[facility]/ZIP Code Phon e Number HP CONVERSION XR Chest PA With Lateral (09/07/1999 10:55 AM MAINTENANCE HELPER) Anatomical Region Laterality Modality Other Specimen (Source) Anatomical Location Collection Method / Collectio n Time Received Time / Laterality Volume Impressions 09/07/1999 10:55 AM MAINTENANCE HELPER : ?NORMAL CHEST. FINDINGS: ?CH1 ?THE CARDIOVASCULAR STRUCTURES APPE AR NORMAL. ?NO EVIDENCE OF ACTIVE PULMONARY DI SEASE. TECH-ID : ? 25 TRANS-ID: Narrative 09/07/1999 10:55 AM MAINTENANCE HELPER CLINICAL DATA: ?SHORT OF BREATH WITH EXERCISE. Procedure Note Ced Rubio Kyara - 10/15/2016 CLINICAL DATA: SHORT OF BREATH WITH EXERCISE. IMPRESSION : NORMAL CHEST. FINDINGS: CH1 THE CARDIOVASCULAR STRUCTURES APPEAR NO RMAL. NO EVIDENCE OF ACTIVE PULMONARY DISEASE . TECH-ID : 25 TRANS-ID: Trey Biswas MD RAD GD BUN (09/07/1999 10:37 AM MAINTENANCE HELPER) athologist Signature Blood Urea 21 5 - 26 HP CONVERSION Nitrogen mg/dL Specimen (Source) Anatomical Collection Method Collection Time Re ceived Time Location / / Volume Laterality 09/07/1999 10:37 AM MAINTENANCE HELPER Trey Biswas MD LAB_1 Performing Organization Address City/State/ZIP Code Phon e Number HP CONVERSION Creatinine / GFR (09/07/1999 10:37 AM MAINTENANCE HELPER) athologist Signature Creatinine 1.0 0.5 - 1.5 HP CONVERSION Serum mg/dL Specimen (Source) Anatomical Collection Method Collection Time Re ceived Time Location / / Volume Laterality 09/07/1999 10:37 AM MAINTENANCE HELPER Trey Biswas MD LAB_1 Performing Organization Address City/State/ZIP Code Phon e Number HP CONVERSION Glucose (09/07/1999 10:37 AM MAINTENANCE HELPER) athologist Signature Lab Glucose 108 70 - 115 HP CONVERSION mg/dL Specimen (Source) Anatomical Collection Method Collection Time Re ceived Time Location / / Volume Laterality 09/07/1999 10:37 AM MAINTENANCE HELPER Trey Biswas MD LAB_1 Performing Organization Address City/State/ZIP Code Phon e Number HP CONVERSION Potassium (09/07/1999 10:37 AM MAINTENANCE HELPER) athologist Signature Potassium 4.4 3.5 - 5.2 HP CONVERSION meq/L Specimen (Source) Anatomical Collection Method Collection Time Re ceived Time Location / / Volume Laterality 09/07/1999 10:37 AM MAINTENANCE HELPER Trey Biswas MD LAB_1 Performing Organization Address City/[facility]/ZIP Code Phon e Number HP CONVERSION Sodium (09/07/1999 10:37 AM MAINTENANCE HELPER) athologist Signature Sodium 141 137 - 147 HP CONVERSION meq/L Specimen (Source) Anatomical Collection Method Collection Time Re ceived Time Location / / Volume Laterality 09/07/1999 10:37 AM MAINTENANCE HELPER Trey Biswas MD LAB_1 Performing Organization Address City/[facility]/ZIP Code Phon e Number HP CONVERSION Thyroid Stimulating Hormone (09/07/1999 10:37 AM MAINTENANCE HELPER) athologist Signature Thyroid 0.42 0.20 - HP CONVERSION Stimulating 5.50 Hormone uIU/mL Specimen (Source) Anatomical Collection Method Collection Time Re ceived Time Location / / Volume Laterality 09/07/1999 10:37 AM MAINTENANCE HELPER Trey Biswas MD LAB_1 Performing Organization Address City/State/ZIP Code Phon e Number HP CONVERSION Hgb A1c (09/07/1999 10:37 AM MAINTENANCE HELPER) athologist Signature HGB A1C 5.5 <6.0 % HP CONVERSION Specimen (Source) Anatomical Collection Method Collection Time Re ceived Time Location / / Volume Laterality 09/07/1999 10:37 AM MAINTENANCE HELPER Trey Biswas MD LAB_1 Performing Organization Address [facility] Phon e Number HP CONVERSION Hemoglobin, Blood (09/07/1999 10:37 AM MAINTENANCE HELPER) P athologist Signature Hemoglobin 13.3 11.8 - 15.5 HP CONVERSION gm/dL Specimen (Source) Anatomical Collection Method Collection Time Re ceived Time Location / / Volume Laterality 09/07/1999 10:37 AM MAINTENANCE HELPER Trey Biswas MD LAB_1 Performing Organization Address [facility] Phon e Number HP CONVERSION MM Mammogram Screening W CAD (08/10/1998 8:00 AM MAINTENANCE HELPER) Anatomical Region Laterality Modality Breast Bilateral Mammography Specimen (Source) Anatomical Location Collection Method / Collectio n Time Received Time / Laterality Volume Impressions 08/10/1998 8:00 AM MAINTENANCE HELPER : ?? NO MAMMOGRAPHIC EVIDENCE OF MALIGNAN CY. FINDINGS: ?? M3U ?? BREAST TISSUE IS MODERATELY DENSE. ? ?THIS SOMEWHAT DECREASES ?? DIAGNOSTIC SENSITIVITY. ??NO SUSPICI OUS MASSES OR CALCIFICATIONS ?? ARE SEEN. ?? NO CHANGE FROM 01/24/95. TECH-ID : ? BAL TRANS-ID: Narrative 08/10/1998 8:00 AM MAINTENANCE HELPER SEVERITY: 1 CLINICAL DATA: ?YEARLY ?LAST ONE / [place] Procedure Note Ariel Eden J - 10/15/2016Formattin g of this note might be different from the original. SEVERITY: 1 CLINICAL DATA: YEARLY LAST ONE / [place] IMPRESSION : NO MAMMOGRAPHIC EVIDENCE OF MALIGNANCY. FINDINGS: M3U BREAST TISSUE IS MODERATELY DENSE. THIS SOMEWHAT DECREASES DIAGNOSTIC SENSITIVITY. NO SUSPICIOUS M ASSES OR CALCIFICATIONS ARE SEEN. NO CHANGE FROM 01/24/95. TECH-ID : BAL TRANS-ID: Trey Biswas MD RAD AMBER BUN (07/19/1998 10:39 AM MAINTENANCE HELPER) athologist Signature Blood Urea 15 5 - 26 HP CONVERSION Nitrogen mg/dL Specimen (Source) Anatomical Collection Method Collection Time Re ceived Time Location / / Volume Laterality 07/19/1998 10:39 AM MAINTENANCE HELPER Trey Biswas MD LAB_1 Performing Organization Address [facility]/ZIP Code Phon e Number HP CONVERSION Creatinine / GFR (07/19/1998 10:39 AM MAINTENANCE HELPER) athologist Signature Creatinine 0.9 0.5 - 1.5 HP CONVERSION Serum mg/dL Specimen (Source) Anatomical Collection Method Collection Time Re ceived Time Location / / Volume Laterality 07/19/1998 10:39 AM MAINTENANCE HELPER Trey Biswas MD LAB_1 Performing Organization Address City/[facility] Phon e Number HP CONVERSION Glucose (07/19/1998 10:39 AM MAINTENANCE HELPER) athologist Signature Length Of Fast 16.5 12.0 - HP CONVERSION 24.0 Hours Lab Glucose 99 70 - 115 HP CONVERSION mg/dL Specimen (Source) Anatomical Collection Method Collection Time Re ceived Time Location / / Volume Laterality 07/19/1998 10:39 AM MAINTENANCE HELPER Trey Biswas MD LAB_1 Performing Organization Address [facility] Code Phon e Number HP CONVERSION Potassium (07/19/1998 10:39 AM MAINTENANCE HELPER) athologist Signature Potassium 3.9 3.5 - 5.2 HP CONVERSION mmol/L Specimen (Source) Anatomical Collection Method Collection Time Re ceived Time Location / / Volume Laterality 07/19/1998 10:39 AM MAINTENANCE HELPER Trey Biswas MD LAB_1 Performing Organization Address [facility] Code Phon e Number HP CONVERSION Sodium (07/19/1998 10:39 AM MAINTENANCE HELPER) athologist Signature Sodium 139 137 - 147 HP CONVERSION mmol/L Specimen (Source) Anatomical Collection Method Collection Time Re ceived Time Location / / Volume Laterality 07/19/1998 10:39 AM MAINTENANCE HELPER Trey Biswas MD LAB_1 Performing Organization Address City/[facility]/ZIP Code Phon e Number HP CONVERSION (ABNORMAL) Lipid Panel and Direct LDL(If Needed) (07/19/1998 10:39 AM MAINTENANCE HELPER) [facility] gist Method Time Signature Length Of Fast 16.5 12.0 - HP CONVERSION 24.0 Hours Cholesterol 217 (HH) 125 - 199 HP CONVERSION mg/dL HDL Cholesterol 64 36 - 80 HP CONVERSION mg/dL Cholesterol/HDL 3.4 No normal HP CONVERSION Ratio Screen range Triglycerides 114 0 - 250 HP CONVERSION mg/dL LDL Calculated 130 (HH) 66 - 129 HP CONVERSION mg/dL Comment: Fasting status adequate. Specimen (Source) Anatomical Collection Method Collection Time Re ceived Time Location / / Volume Laterality 07/19/1998 10:39 AM MAINTENANCE HELPER Trey Biswas MD LAB_1 Performing Organization Address [facility] Phon e Number HP CONVERSION Thyroid Stimulating Hormone (07/19/1998 10:39 AM MAINTENANCE HELPER) athologist Signature Thyroid 0.63 0.20 - HP CONVERSION Stimulating 5.50 Hormone mIU/mL Specimen (Source) Anatomical Collection Method Collection Time Re ceived Time Location / / Volume Laterality 07/19/1998 10:39 AM MAINTENANCE HELPER Trey Biswas MD LAB_1 Performing Organization Address [facility] Phon e Number HP CONVERSION Hgb A1c (07/19/1998 10:39 AM MAINTENANCE HELPER) athologist Signature HGB A1C 5.6 4.2 - 5.8 % HP CONVERSION Specimen (Source) Anatomical Collection Method Collection Time Re ceived Time Location / / Volume Laterality 07/19/1998 10:39 AM MAINTENANCE HELPER Trey Biswas MD LAB_1 Performing Organization Address [facility] Phon e Number HP CONVERSION Microalb/Creat Ratio (07/19/1998 10:39 AM MAINTENANCE HELPER) Analysis Performed At Patho logist Time Signature U Creat Random 50 mg/dL HP CONVERSION Microalbumin 1.7 0.0 - 30.0 HP CONVERSION Urine mg/L Microalbumin/Crea 3.4 0.0 - 30.0 HP CONVERSI ON tinine Ratio mg/G Comment: Your result is normal because there is l ittle or no protein in the urine, usually indicating healthy kidneys. Specimen (Source) Anatomical Collection Method Collection Time Re ceived Time Location / / Volume Laterality 07/19/1998 10:39 AM MAINTENANCE HELPER Trey Biswas MD LAB_1 Performing Organization Address [facility] Phon e Number HP CONVERSION Complete Blood Count-No Diff (07/19/1998 10:39 AM MAINTENANCE HELPER) athologist Signature White Blood Cell 7.2 3.8 - 11.0 HP CONVERSIO N Count K/cmm Red Blood Cell 4.33 3.70 - HP CONVERSION Count 5.20 m/cmm Hemoglobin 13.1 11.8 - HP CONVERSION 15.5 gm/dL Hematocrit 39.2 35.0 - HP CONVERSION 46.0 % Mean Corpuscular 90.7 80.0 - HP CONVERSION Volume 100.0 fl Mean Corpuscular 30.3 27.0 - HP CONVERSION Hemoglobin 34.0 pg Mean Corpuscular 33.4 32.0 - HP CONVERSION Hemoglobin Conc 36.5 gm/dL [place] RDW 11.8 11.0 - HP CONVERSION 15.0 % Platelet Count 195 140 - 450 HP CONVERSION k/cmm Specimen (Source) Anatomical Collection Method Collection Time Re ceived Time Location / / Volume Laterality 07/19/1998 10:39 AM MAINTENANCE HELPER Trey Biswas MD LAB_1 Performing Organization Address City/[facility]/ZIP Code Phon e Number HP CONVERSION (ABNORMAL) Urinalysis Complete (07/19/1998 10:39 AM MAINTENANCE HELPER) [facility] Method Time Signature Glucose, Negative Neg-Trac HP CONVERSION Qualitative U Protein Urine Negative Neg-Trac HP CONVERSION Ketones Negative Negative HP CONVERSION U BILI Negative Negative HP CONVERSION U Specific <=1.005 1.005 - 25 HP CONVERSION [place] Blood Urine Negative Negative HP CONVERSION pH Urine 6.0 4.5 - 7.5 HP CONVERSION Urobilinogen Negative 0.2 - 1.0 HP CONVERSION Urine Nitrite Urine Negative Negative HP CONVERSION Leukocyte Small (A) Negative HP CONVERSION Esterase Urine White Blood 2-5 (A) 0 - 3 /HPF HP CONVERSION Cells Urine Red Blood Cells 0-2 0 - 3 /HPF HP CONVERSION Urine Bacteria Urine Rare (A) None HP CONVERSION Epithelial Cells Moderate Few /HPF HP CONVERSION Specimen (Source) Anatomical Collection Method Collection Time Re ceived Time Location / / Volume Laterality 07/19/1998 10:39 AM MAINTENANCE HELPER Trey Biswas MD LAB_1 Performing Organization Address City/[facility]/ZIP Code Phon e Number HP CONVERSION (ABNORMAL) Wet Prep [facility] (07/19/1998 10:39 AM MAINTENANCE HELPER) [facility] Method Time Signature Wet Prep [place] ? No normal HP CONVERSION [facility] Wet Prep Negative No normal HP CONVERSION [place] [facility] Wet Prep WBC Moderate No normal HP CONVERSION [place] [facility] Wet Prep Moderate No normal HP CONVERSION Bacteria [place] [facility] Wet Prep Clue Positive (A) No normal HP CONVERSION Cells [place] [facility] Positive (A) No normal HP CONVERSION Yeast [place] [facility] Wet Prep Negative No normal HP CONVERSION [place] [facility] Specimen (Source) Anatomical Collection Method Collection Time Re ceived Time Location / / Volume Laterality 07/19/1998 10:39 AM MAINTENANCE HELPER Trey Biswas MD LAB_1 Performing Organization Address City/State/ZIP Code Phon e Number HP CONVERSION Anatomical Path-C (07/19/1998 7:35 AM MAINTENANCE HELPER) athologist Signature PAP Smear SEE TEXT No normal HP CONVERSION range Comment: Patient: MANI SAMUELS ? CERVICAL CYTOLOGY REPORT Pathology # ??[id number] ?Date Obtained: ? Date Received: LMP: CLINICAL HIST CERVICAL SMEAR SPECIMEN ADEQUACY: ?? Satisfactory. ENDOCERVICAL CELLS: ??Absent; patient is post-menopausal. CYTOLOGIC IMPRESSION: Within Normal Limits (Negative). Fungal organisms identified. Verified 08/02/98 by: ??Letty apodaca M.D. ?(electronic signature) Specimen (Source) Anatomical Collection Method Collection Time Re ceived Time Location / / Volume Laterality 07/19/1998 7:35 AM MAINTENANCE HELPER Trey Biswas MD LAB_1 Performing Organization Address City/State/ZIP Code Phon e Number HP CONVERSION documented in this encounter Visit Diagnoses Not on filedocumented in this encounter Care Teams Cap And Stud Machine Operator Relationship Specialty Start Date End Date Radha Martinez MD PCP - General 11/13/10 02/28/18 [address] [place] [address] documented as of this encounter
--- OUTSIDE RECORDS SUMMARY | 2022-07-24 10:32 | XMS_ITS | Encounter Summary ---
:1940 Author Organization [facility] Address [address] [place] [address] Care Team Providers Name Role Phone Radha Martinez MD Primary Care Provider Encounter Details Date Type Department Care Team Description 02/20/2005 PN Conversion Only [place] [address] [address] [place] [address] Social History Tobacco Use Types Packs/Day Years Used Date Smoking Tobacco: Never Assessed Sex Assigned at Date Recorded Not on file documented as of this encounter Plan of Treatment Upcoming Encounters Date Type Specialty Care Team Description 09/29/2022 Appointment Rheumatology Kal Davila MD [address] [facility] N [address] (Wo rk) documented as of this encounter Visit Diagnoses Not on filedocumented in this encounter Care Teams Camera Mechanic Relationship Specialty Start Date End Date Radha Martinez MD PCP - General 11/13/10 02/28/18 [address] [place] [address] documented as of this encounter
--- OUTSIDE RECORDS SUMMARY | 2022-07-24 10:32 | XMS_ITS | Encounter Summary ---
:1940 Author Organization [facility] Address [address] [place] [address] Care Team Providers Name Role Phone Radha Martinez MD Primary Care Provider Encounter Details Date Type Department Care Team Description 02/22/2005 PN Conversion Only [place]IND[place] CONVERSION Urban Martinez MD [address] [place] [address] (Wo rk) Social History Tobacco Use Types Packs/Day Years Used Date Smoking Tobacco: Never Assessed Sex Assigned at Date Recorded Not on file documented as of this encounter Plan of Treatment Upcoming Encounters Date Type Specialty Care Team Description 09/29/2022 Appointment Rheumatology Kal Davila MD [address] [facility] N [id number] (Wo rk) documented as of this encounter Procedures Procedure Name Priority Date/Time Associated Comments Diagnosis GLUCOSE Routine 02/22/2005 10:33 Results for this AM CDT procedure are i n the results section. THYROID STIMULATING Routine 02/22/2005 10:33 Resu lts for this HORMONE AM CDT procedure are i n the results section. LIPID PANEL AND Routine 02/22/2005 10:33 Results for this DIRECT LDL(IF NEEDED) AM CDT proced ure are in the results section. CREATININE / GFR Routine 02/22/2005 10:33 Results for this AM CDT procedure are i n the results section. HGB A1C Routine 02/22/2005 10:33 Results for this AM CDT procedure are i n the results section. VITAMIN B12 ONLY Routine 02/22/2005 10:33 Results for this AM CDT procedure are i n the results section. SODIUM Routine 02/22/2005 10:33 Results for this AM CDT procedure are i n the results section. POTASSIUM Routine 02/22/2005 10:33 Results for this AM CDT procedure are i n the results section. BUN Routine 02/22/2005 10:33 Results for this AM CDT procedure are i n the results section. ANATOMICAL PATH Routine 02/22/2005 9:50 AM Result s for this LIQUID BASED CDT procedure are i n the results section. documented in this encounter Results (ABNORMAL) Lipid Panel and Direct LDL(If Needed) (02/22/2005 10:33 AM CDT) Patholo gist Method Time Signature Cholesterol/HDL 5.9 No normal HP CONVERSION Ratio Screen range Cholesterol 234 (H) <200 mg/dL HP CONVERSION Comment: Borderline high: 200-239 mg/dL High risk: >240 mg/dL HDL Cholesterol 40 40 - 60 mg/dL HP CONVERS ION Triglycerides 245 (H) 0 - 149 mg/dL HP CONVERSIO N Comment: Borderline high: 150-199 mg/dL High risk: 200-499 mg/dL Very high risk: 500 mg/dL or greater LDL Calculated 145 (H) 0 - 130 mg/dL HP CONVERSI ON Comment: Desirable: <130 mg/dL (<100 if diabetes or coronary heart disease) Borderline high: 130-159 mg/dL High risk: >159 mg/dL Specimen (Source) Anatomical Collection Method Collection Time Re ceived Time Location / / Volume Laterality 02/22/2005 10:33 AM CDT Radha Martinez MD LAB_1 Performing Organization Address City/State/ZIP Code Phon e Number HP CONVERSION BUN (02/22/2005 10:33 AM CDT) P athologist Signature Blood Urea 19 5 - 26 HP CONVERSION Nitrogen mg/dL Specimen (Source) Anatomical Collection Method Collection Time Re ceived Time Location / / Volume Laterality 02/22/2005 10:33 AM CDT Radha Martinez MD LAB_1 Performing Organization Address City/State/ZIP Code Phon e Number HP CONVERSION Creatinine / GFR (02/22/2005 10:33 AM CDT) athologist Signature Creatinine 0.9 0.5 - 1.5 HP CONVERSION Serum mg/dL Specimen (Source) Anatomical Collection Method Collection Time Re ceived Time Location / / Volume Laterality 02/22/2005 10:33 AM CDT Radha Martinez MD LAB_1 Performing Organization Address City/State/ZIP Code Phon e Number HP CONVERSION Glucose (02/22/2005 10:33 AM CDT) athologist Signature Lab Glucose 90 60 - 100 HP CONVERSION mg/dL Specimen (Source) Anatomical Collection Method Collection Time Re ceived Time Location / / Volume Laterality 02/22/2005 10:33 AM CDT Radha Martinez MD LAB_1 Performing Organization Address City/State/ZIP Code Phon e Number HP CONVERSION Sodium (02/22/2005 10:33 AM CDT) athologist Signature Sodium 141 137 - 147 HP CONVERSION meq/L Specimen (Source) Anatomical Collection Method Collection Time Re ceived Time Location / / Volume Laterality 02/22/2005 10:33 AM CDT Radha Martinez MD LAB_1 Performing Organization Address City/State/ZIP Code Phon e Number HP CONVERSION Potassium (02/22/2005 10:33 AM CDT) athologist Signature Potassium 4.5 3.5 - 5.2 HP CONVERSION meq/L Specimen (Source) Anatomical Collection Method Collection Time Re ceived Time Location / / Volume Laterality 02/22/2005 10:33 AM CDT Radha Martinez MD LAB_1 Performing Organization Address City/State/ZIP Code Phon e Number HP CONVERSION Hgb A1c (02/22/2005 10:33 AM CDT) athologist Signature HGB A1C 5.6 <6.0 % HP CONVERSION Specimen (Source) Anatomical Collection Method Collection Time Re ceived Time Location / / Volume Laterality 02/22/2005 10:33 AM CDT Radha Martinez MD LAB_1 Performing Organization Address City/State/ZIP Code Phon e Number HP CONVERSION Thyroid Stimulating Hormone (02/22/2005 10:33 AM CDT) athologist Signature Thyroid 0.87 0.20 - HP CONVERSION Stimulating 4.50 Hormone uIU/mL Specimen (Source) Anatomical Collection Method Collection Time Re ceived Time Location / / Volume Laterality 02/22/2005 10:33 AM CDT Radha Martinez MD LAB_1 Performing Organization Address City/State/ZIP Code Phon e Number HP CONVERSION Vitamin B12 Only (02/22/2005 10:33 AM CDT) athologist Signature Vitamin B12 319 211 - 911 HP CONVERSION pg/mL Specimen (Source) Anatomical Collection Method Collection Time Re ceived Time Location / / Volume Laterality 02/22/2005 10:33 AM CDT Radha Martinez MD LAB_1 Performing Organization Address City/[facility] Code Phon e Number HP CONVERSION Pap Smear (02/22/2005 9:50 AM CDT) [facility] gist Method Time Signature PAP Smear SEE TEXT No normal HP CONVERSION Liquid Based range Comment: Patient: NINA REYES ? CERVICAL CYTOLOGY REPORT Pathology # ??[id number] ?Date Obtained: ? Date Received: CYTOLOGIC IMPRESSION: Negative for intraepithelial lesion or m alignancy. ? ADOLPH TIONAL DATA LMP: ?HYST CLINICAL HIST LIQUID BASED PAP VAGINAL SPECIMEN ADEQUACY: ?? Satisfactory. ENDOCERVICAL CELLS: ??Absent; patient mayo s had a hysterectomy. Verified 03/02/05 by: ??MB ? (electronic signature) Specimen (Source) Anatomical Collection Method Collection Time Re ceived Time Location / / Volume Laterality 02/22/2005 9:50 AM CDT Radha Martinez MD LAB_1 Performing Organization Address City/State/ZIP Code Phon e Number HP CONVERSION documented in this encounter Visit Diagnoses Not on filedocumented in this encounter Care Teams Health Care Liaison Relationship Specialty Start Date End Date Radha Martinez MD PCP - General 11/13/10 02/28/18 [address] [place], [place] [address] documented as of this encounter
--- OUTSIDE RECORDS SUMMARY | 2022-07-24 10:32 | XMS_ITS | Encounter Summary ---
:1940 Author Organization [facility] Address [address] [address] Care Team Providers Name Role Phone Radha Martinez MD Primary Care Provider Reason for Visit Reason Comments Other Encounter Details Date Type Department Care Team Description 02/27/2005 Telephone [facility] Deisi Tavarez Other [address] [place] [address] Social History Tobacco Use Types Packs/Day Years Used Date Smoking Tobacco: Never Assessed Sex Assigned at Date Recorded Not on file documented as of this encounter Progress Notes Deisi Tavarez - 02/27/2005 2:13 PM CDT Phone Note filed by Deisi Tavarez RN at 11/28/101922 Author: Deisi Tavarez RN Service: (none) Author Type: (none) Filed: 11/28/101922 Note Time: 02/27/051412 Status: Signed Ballistics Tester: Rahat Conversion Per Dr. Martinez: Regarding lipids- this is worse than last check. Repeat cholesterol fractionation in 6 months. Cholesterol medication will be needed if cholesterol does not improve. Lab results letter mailed to patient. Created on 27Feb2005 2:13pm by DEISI TAVAREZ ILITY SPECIALIST documented in this encounter Plan of Treatment Upcoming Encounters Date Type Specialty Care Team Description 09/29/2022 Appointment Rheumatology Kal Davila MD [address] [address] (Wo rk) documented as of this encounter Visit Diagnoses Not on filedocumented in this encounter Care Teams Consumer Safety Inspector Relationship Specialty Start Date End Date Radha Martinez MD PCP - General 11/13/10 02/28/18 [address] [place], [place] [address] documented as of this encounter
--- OUTSIDE RECORDS SUMMARY | 2022-07-24 10:32 | XMS_ITS | Encounter Summary ---
:1940 Author Organization [facility] Address [address] [address] Care Team Providers Name Role Phone Liset Martinez MD Primary Care Provider Encounter Details Date Type Department Care Team Description 05/04/2004 Office Visit [facility] Jolynn Martinez MD [address] [place] [address] [phone] Social History Tobacco Use Types Packs/Day Years Used Date Smoking Tobacco: Never Assessed Sex Assigned at Date Recorded Not on file documented as of this encounter Progress Notes Liset Martinez MD - 05/04/2004 12:01 AM CDT Progress Notes signed by Liset Martinez MD at 09/01/04 1118 Author: Liset Martinez MD Service: (none) Author Type: Physician Filed: 12/02/10 0033 Note Time: 05/04/04 0001 Status: Signed Body Stylist: Liset Martinez MD (Physician) NAME: NINA SAMUELS MR: [id number] ACCT: [id number] VISIT: [id number] DICTATING CLINICIAN: LISET MARTINEZ MD JOB: [id number] CLINIC PROGRESS NOTE DATE OF VISIT: 05/04/2004 SUBJECTIVE: : 1940. HISTORY: A 64-year-old follow up hypothyroidism, hypertension. Concerned about family history of renal cell cancer. She has been feeling well on her medications, including the Lasix 20 mg daily, lisinopril 20 mg daily. She is concerned because both her brothers have been diagnosed with renal cell carcinoma, then they were told that they had a genetic mutation. The patient and her sister have not had known renal problems. Denies hematuria. She is on levothyroxine 0.112 mg daily for thyroid replacement, feeling well. Also takes Premarin 0.3 mg daily, feels she could not be on a lower dose and still feel well. MEDICATIONS: Vioxx 25 mg daily, Lasix 20 mg daily, lisinopril 20 mg daily, levothyroxine 0.112 mg daily, Premarin 0.3 mg daily. HABITS: Quit smoking in the . ADR/ALLERGIES: REVIEWED, SEE LAST WORD. PAST MEDICAL HISTORY: See updated patient health profile. OBJECTIVE: VS: BP: 146/84. P: 76. Wt: 208. GENERAL: She is an overweight female, in no distress. NECK: No thyromegaly or thyroid nodule. EYES: No icterus or injection. LUNGS: Clear posteriorly. CARDIOVASCULAR: Regular rate and rhythm, without gallops, murmurs or rubs. 2/4 radial artery pulses. No edema. ABDOMEN: Obese. Bowel sounds present. ASSESSMENT: 1. Hypothyroidism. 2. Hypertension. 3. Family history of renal cell. 4. Health care maintenance. PLAN: 1. Check TSH. Refill levothyroxine. 2. I recommend increase to lisinopril 40 mg daily. We will check sodium, potassium, BUN, creatinine and urine analysis. 3. Check renal ultrasound. 4. Flu shot. 5. She has brought in advance directives, which show her would be power of criminal defense attorney, in the event that he was not available the daughter would be. This will be filed in her chart. Also, review shows that basically general instructions include if she has a terminal condition she wishes to be allowed to naturally and not postpone the . However, wanting appropriate care for other medical illnesses. 6. Recommend weight loss. SME:[id number] C: 05/06/04 20:05 DOCUMENT: [id number] LEVELER documented in this encounter Plan of Treatment Upcoming Encounters Date Type Specialty Care Team Description 09/29/2022 Appointment Rheumatology Kal Davila MD [address] [facility] [address] (Wo rk) documented as of this encounter Visit Diagnoses Not on filedocumented in this encounter Care Teams Principal Investigator Relationship Specialty Start Date End Date Liset Martinez MD PCP - General 11/13/10 02/28/18 [address] [place] [address] documented as of this encounter
--- OUTSIDE RECORDS SUMMARY | 2022-07-24 10:32 | XMS_ITS | Encounter Summary ---
:1940 Author Organization [facility] Address [address] [place] [address] Care Team Providers Name Role Phone Radha Martinez MD Primary Care Provider Encounter Details Date Type Department Care Team Description 05/04/2004 PN Conversion Only EPISCOPALIAN CONVERSION Urban Martinez MD [address] [place] [address] (Wo rk) Social History Tobacco Use Types Packs/Day Years Used Date Smoking Tobacco: Never Assessed Sex Assigned at Date Recorded Not on file documented as of this encounter Plan of Treatment Upcoming Encounters Date Type Specialty Care Team Description 09/29/2022 Appointment Rheumatology Kal Davila MD [address] [facility] N [id number] (Wo rk) documented as of this encounter Procedures Procedure Name Priority Date/Time Associated Comments Diagnosis THYROID STIMULATING Routine 05/04/2004 11:42 Resu lts for this HORMONE AM CDT procedure are i n the results section. URINALYSIS Routine 05/04/2004 11:42 Results for this ROUTINE(MICRO IF POS) AM CDT proced ure are in the results section. CREATININE / GFR Routine 05/04/2004 11:42 Results for this AM CDT procedure are i n the results section. SODIUM Routine 05/04/2004 11:42 Results for this AM CDT procedure are i n the results section. POTASSIUM Routine 05/04/2004 11:42 Results for this AM CDT procedure are i n the results section. BUN Routine 05/04/2004 11:42 Results for this AM CDT procedure are i n the results section. documented in this encounter Results BUN (05/04/2004 11:42 AM CDT) athologist Signature Blood Urea 23 5 - 26 HP CONVERSION Nitrogen mg/dL Specimen (Source) Anatomical Collection Method Collection Time Re ceived Time Location / / Volume Laterality 05/04/2004 11:42 AM CDT Radha Martinez MD LAB_1 Performing Organization Address City/State/ZIP Code Phon e Number HP CONVERSION Creatinine / GFR (05/04/2004 11:42 AM CDT) athologist Signature Creatinine 0.9 0.5 - 1.5 HP CONVERSION Serum mg/dL Specimen (Source) Anatomical Collection Method Collection Time Re ceived Time Location / / Volume Laterality 05/04/2004 11:42 AM CDT Radha Martinez MD LAB_1 Performing Organization Address City/State/ZIP Code Phon e Number HP CONVERSION Sodium (05/04/2004 11:42 AM CDT) athologist Signature Sodium 137 137 - 147 HP CONVERSION meq/L Specimen (Source) Anatomical Collection Method Collection Time Re ceived Time Location / / Volume Laterality 05/04/2004 11:42 AM CDT Radha Martinez MD LAB_1 Performing Organization Address City/State/ZIP Code Phon e Number HP CONVERSION Potassium (05/04/2004 11:42 AM CDT) athologist Signature Potassium 4.6 3.5 - 5.2 HP CONVERSION meq/L Specimen (Source) Anatomical Collection Method Collection Time Re ceived Time Location / / Volume Laterality 05/04/2004 11:42 AM CDT Radha Martinez MD LAB_1 Performing Organization Address City/State/ZIP Code Phon e Number HP CONVERSION Thyroid Stimulating Hormone (05/04/2004 11:42 AM CDT) athologist Signature Thyroid 1.96 0.20 - HP CONVERSION Stimulating 5.50 Hormone uIU/mL Specimen (Source) Anatomical Collection Method Collection Time Re ceived Time Location / / Volume Laterality 05/04/2004 11:42 AM CDT Radha Martinez MD LAB_1 Performing Organization Address City/State/ZIP Code Phon e Number HP CONVERSION Urinalysis Routine(Micro If Pos) (05/04/2004 11:42 AM CDT) [facility] gist Method Time Signature Glucose, Negative Neg-Trac HP CONVERSION Qualitative U Protein Urine Negative Neg-Trac HP CONVERSION Ketones Negative Negative HP CONVERSION U BILI Negative Negative HP CONVERSION U Specific 1.025 1.005 - 25 HP CONVERSION [place] Blood Urine Negative Negative HP CONVERSION pH Urine 5.0 4.5 - 7.5 HP CONVERSION Urobilinogen Negative 0.2 - 1.0 HP CONVERSION Urine Nitrite Urine Negative Negative HP CONVERSION Leukocyte Negative Negative HP CONVERSION Esterase Urine Specimen (Source) Anatomical Collection Method Collection Time Re ceived Time Location / / Volume Laterality 05/04/2004 11:42 AM CDT Radha Martinez MD LAB_1 Performing Organization Address City/State/[facility] Code Phon e Number HP CONVERSION documented in this encounter Visit Diagnoses Not on filedocumented in this encounter Care Teams Nursing Assistants Teacher Relationship Specialty Start Date End Date Radha Martinez MD PCP - General 11/13/10 02/28/18 [address] [place] [address] documented as of this encounter
--- OUTSIDE RECORDS SUMMARY | 2022-07-24 10:32 | XMS_ITS | Encounter Summary ---
:1940 Author [facility] Address [address] [place] [address] Care Team Providers Name Role Phone Radha Martinez MD Primary Care Provider Reason for Visit Reason Comments Other Encounter Details Date Type Department Care Team Description 06/29/2005 Telephone [facility], Message Other [address] [place] [address] Social History Tobacco Use Types Packs/Day Years Used Date Smoking Tobacco: Never Assessed Sex Assigned at Date Recorded Not on file documented as of this encounter Progress Notes Neeta Bowen - 06/29/2005 1:27 PM CST Phone Note filed by Neeta Bowen MA at 11/28/102220 Author: Neeta Bowen MA Service: (none) Author Type: (none) Filed: 11/28/102220 Note Time: 06/29/05 1327 Status: Signed Statistics Manager: Neeta Bowen MA (Adolescent Medicine Specialist) Pt calling because her mail-in pharmacy hasn't sent her Lisinopril 40mg yet and she is all out. She would like a 1 month supply faxed to [facility] in [place]. Their fax number is [phone]. Pt can be reached at [phone]. She is Dr Martinez's pt. Created on 29Jun2005 1:27pm by NEETA BOWEN On 29Jun2005 1:44pm SUNIL VEGA wrote: rx printed. please fax. Acknowledged by SUNIL VEGA on 1:44pm On 29Jun2005 3:04pm MCKAYLA PEÑA wrote: Rx faxed, patient notified. Acknowledged by MCKAYLA PEÑA on 3:04pm ERSIBLE PILOT documented in this encounter Plan of Treatment Upcoming Encounters Date Type Specialty Care Team Description 09/29/2022 Appointment Rheumatology Kal Davila MD [address] [facility] [address] (Wo rk) documented as of this encounter Visit Diagnoses Not on filedocumented in this encounter Care Teams Apns Relationship Specialty Start Date End Date Radha Martinez MD PCP - General 11/13/10 02/28/18 [address] [place] [address] documented as of this encounter
--- OUTSIDE RECORDS SUMMARY | 2022-07-24 10:32 | XMS_ITS | Encounter Summary ---
:1940 Author Organization [facility] Address [address] [place] [address] Care Team Providers Name Role Phone Radha Martinez MD Primary Care Provider Encounter Details Date Type Department Care Team Description 05/09/2004 PN Conversion Only [facility] [address] [place] [address] Social History Tobacco Use Types Packs/Day Years Used Date Smoking Tobacco: Never Assessed Sex Assigned at Date Recorded Not on file documented as of this encounter Plan of Treatment Upcoming Encounters Date Type Specialty Care Team Description 09/29/2022 Appointment Rheumatology Kal Davila MD [address] [facility] N [id number] (Wo rk) documented as of this encounter Procedures Procedure Name Priority Date/Time Associated Diagnosis Comme nts US RENAL W BLADDER Routine 05/09/2004 1:46 PM Res ults for this CDT procedure are i n the results section. documented in this encounter Results US Renal W Bladder (05/09/2004 1:46 PM CDT) Anatomical Region Laterality Modality Abdomen, Pelvis Other Specimen (Source) Anatomical Location Collection Method / Collectio n Time Received Time / Laterality Volume Narrative 05/09/2004 1:46 PM CDT Right kidney measures 11.3 cm longitudinally and the left kidney measures 11.1 cm longitudinally. ??No re nal masses nor obstruction. [facility]/[id number] Dictating PAUL GOODEN MD Procedure Note Paul Moctezuma - 10/15/2016 Right kidney measures 11.3 cm longitudin ally and the left kidney measures 11.1 cm longitudinally. No jah l masses nor obstruction. [facility]/[id number] Dictating PAUL GOODEN MD Radha Martinez MD [facility] documented in this encounter Visit Diagnoses Not on filedocumented in this encounter Care Teams Garbage Collector Relationship Specialty Start Date End Date Radha Martinez MD PCP - General 11/13/10 02/28/18 [address] [place] [address] documented as of this encounter
--- OUTSIDE RECORDS SUMMARY | 2022-07-24 10:32 | XMS_ITS | Encounter Summary ---
:1940 Author Organization [facility] Address [address] [address] Care Team Providers Name Role Phone Radha Martinez MD Primary Care Provider Encounter Details Date Type Department Care Team Description 08/22/2004 Service Line Bus Cleaner Only [facility] [address] Mackenzie Christensen MD Gastroenterology OFF [address] [place] [address] [phone] Social History Tobacco Use Types Packs/Day Years Used Date Smoking Tobacco: Never Assessed Sex Assigned at Date Recorded Not on file documented as of this encounter Progress Notes Mackenzie Christensen MD - 08/22/2004 12:01 AM CST Progress Notes signed by Mackenzie Christensen MD at 08/22/04 0730 Author: Mackenzie Christensen MD Service: (none) Author Type: Physician Filed: 12/02/10 0228 Note Time: 08/22/04 0001 Status: Signed Storage And Backup Administrator: Mackenzie Christensen MD (Physician) 08/22/04 Reviewed outside records - all that is available is a flex sig note from 1994 which indicated that a diminutive polyp was removed at flex sig and the patient had a normal colonoscopy 1999. She is at low risk but since we don't know the histology of the polyp, a follow up colon will be scheduled. If there are no polyps this time, I would revert to average risk screening. Mackenzie Stahnke R POLARIZER documented in this encounter Plan of Treatment Upcoming Encounters Date Type Specialty Care Team Description 09/29/2022 Appointment Rheumatology Kal Davila MD [address] [facility] [place] [address] (Wo rk) documented as of this encounter Visit Diagnoses Not on filedocumented in this encounter Care Teams Patient Relations Liaison Relationship Specialty Start Date End Date Radha Martinez MD PCP - General 11/13/10 02/28/18 [address] [place], [place] [id number] documented as of this encounter
--- OUTSIDE RECORDS SUMMARY | 2022-07-24 10:32 | XMS_ITS | Encounter Summary ---
:1940 Author Organization [employer] Address [address] [place] [address] Care Team Providers Name Role Phone Radha Martinez MD Primary Care Provider Encounter Details Date Type Department Care Team Description 06/05/2003 PN Conversion Only [facility] CONVERSION Urban Martinez MD [address] [place] [address] (Wo rk) Social History Tobacco Use Types Packs/Day Years Used Date Smoking Tobacco: Never Assessed Sex Assigned at Date Recorded Not on file documented as of this encounter Plan of Treatment Upcoming Encounters Date Type Specialty Care Team Description 09/29/2022 Appointment Rheumatology Kal Davila MD [address] [facility] [id number] (Wo rk) documented as of this encounter Procedures Procedure Name Priority Date/Time Associated Comments Diagnosis GLUCOSE Routine 06/05/2003 11:20 AM Results for this CDT procedure are i n the results section. LIPID PANEL AND Routine 06/05/2003 11:20 AM Resul ts for this DIRECT LDL(IF CDT procedure are in NEEDED) the results section. CREATININE / GFR Routine 06/05/2003 11:20 AM Resu lts for this CDT procedure are i n the results section. COMPLETE BLOOD Routine 06/05/2003 11:20 AM Result s for this COUNT-W/DIFF CDT procedure are i n the results section. HGB A1C Routine 06/05/2003 11:20 AM Results for this CDT procedure are i n the results section. SODIUM Routine 06/05/2003 11:20 AM Results for this CDT procedure are i n the results section. POTASSIUM Routine 06/05/2003 11:20 AM Results for this CDT procedure are i n the results section. BUN Routine 06/05/2003 11:20 AM Results for this CDT procedure are i n the results section. documented in this encounter Results Complete Blood Count-W/Diff (06/05/2003 11:20 AM CDT) Patholo gist Method Time Signature White Blood Cell 7.8 3.8 - 11.0 HP CONVERSIO N Count K/cmm Red Blood Cell 4.04 3.70 - HP CONVERSION Count 5.20 m/cmm Hemoglobin 12.7 11.8 - HP CONVERSION 15.5 gm/dL Hematocrit 36.9 35.0 - HP CONVERSION 46.0 % Mean Corpuscular 91.4 80.0 - HP CONVERSION Volume 100.0 fl Mean Corpuscular 31.4 27.0 - HP CONVERSION Hemoglobin 34.0 pg Mean Corpuscular 34.3 32.0 - HP CONVERSION Hemoglobin Conc 36.5 gm/dL Myton RDW 11.6 11.0 - HP CONVERSION 15.0 % Platelet Count 178 140 - 450 HP CONVERSION k/cmm Differential Auto-Dif No normal HP CONVERSION Verify range Neutrophils 5.4 2.0 - 7.5 HP CONVERSION Absolute Count K/cmm Neutrophil 69.1 50.0 - HP CONVERSION 75.0 % Lymphocyte % 23.4 20.0 - HP CONVERSION 40.0 % Monocyte 5.9 5.0 - 14.0 HP CONVERSION % Eosinophil 1.3 0.0 - 6.0 HP CONVERSION % Basophil % 0.3 0.0 - 2.0 HP CONVERSION % Specimen (Source) Anatomical Collection Method Collection Time Re ceived Time Location / / Volume Laterality 06/05/2003 11:20 AM CDT Radha Martinez MD LAB_1 Performing Organization Address City/State/ZIP Code Phon e Number HP CONVERSION BUN (06/05/2003 11:20 AM CDT) P athologist Signature Blood Urea 20 5 - 26 HP CONVERSION Nitrogen mg/dL Specimen (Source) Anatomical Collection Method Collection Time Re ceived Time Location / / Volume Laterality 06/05/2003 11:20 AM CDT Radha Martinez MD LAB_1 Performing Organization Address City/State/ZIP Code Phon e Number HP CONVERSION Creatinine / GFR (06/05/2003 11:20 AM CDT) athologist Signature Creatinine 1.1 0.5 - 1.5 HP CONVERSION Serum mg/dL Specimen (Source) Anatomical Collection Method Collection Time Re ceived Time Location / / Volume Laterality 06/05/2003 11:20 AM CDT Radha Martinez MD LAB_1 Performing Organization Address City/State/ZIP Code Phon e Number HP CONVERSION Glucose (06/05/2003 11:20 AM CDT) athologist Signature Length Of Fast 12.0 Hours HP CONVERSION Lab Glucose 89 60 - 109 HP CONVERSION mg/dL Specimen (Source) Anatomical Collection Method Collection Time Re ceived Time Location / / Volume Laterality 06/05/2003 11:20 AM CDT Radha Martinez MD LAB_1 Performing Organization Address City/[facility]/ZIP Code Phon e Number HP CONVERSION Potassium (06/05/2003 11:20 AM CDT) athologist Signature Potassium 4.7 3.5 - 5.2 HP CONVERSION meq/L Specimen (Source) Anatomical Collection Method Collection Time Re ceived Time Location / / Volume Laterality 06/05/2003 11:20 AM CDT Radha Martinez MD LAB_1 Performing Organization Address City/[facility]/ZIP Code Phon e Number HP CONVERSION Sodium (06/05/2003 11:20 AM CDT) athologist Signature Sodium 139 137 - 147 HP CONVERSION meq/L Specimen (Source) Anatomical Collection Method Collection Time Re ceived Time Location / / Volume Laterality 06/05/2003 11:20 AM CDT Radha Martinez MD LAB_1 Performing Organization Address City/State/ZIP Code Phon e Number HP CONVERSION (ABNORMAL) Lipid Panel and Direct LDL(If Needed) (06/05/2003 11:20 AM CDT) [facility] gist Method Time Signature Length Of Fast 12.0 Hours HP CONVERSION Cholesterol/HDL 3.9 No normal HP CONVERSION Ratio Screen range Cholesterol 233 (H) 125 - 199 HP CONVERSION mg/dL HDL Cholesterol 60 40 - 60 HP CONVERSION mg/dL Triglycerides 193 0 - 199 HP CONVERSION mg/dL LDL Calculated 134 (H) 66 - 129 HP CONVERSION mg/dL Comment: Specimen (Source) Anatomical Collection Method Collection Time Re ceived Time Location / / Volume Laterality 06/05/2003 11:20 AM CDT Radha Martinez MD LAB_1 Performing Organization Address City/State/ZIP Code Phon e Number HP CONVERSION Hgb A1c (06/05/2003 11:20 AM CDT) P athologist Signature HGB A1C 5.2 <6.0 % HP CONVERSION Specimen (Source) Anatomical Collection Method Collection Time Re ceived Time Location / / Volume Laterality 06/05/2003 11:20 AM CDT Radha Martinez MD LAB_1 Performing Organization Address City/[facility] Phon e Number HP CONVERSION documented in this encounter Visit Diagnoses Not on filedocumented in this encounter Care Teams Insecticide Expert Relationship Specialty Start Date End Date Radha Martinez MD PCP - General 11/13/10 02/28/18 [address] [place] [address] documented as of this encounter
--- OUTSIDE RECORDS SUMMARY | 2022-07-24 10:32 | XMS_ITS | Encounter Summary ---
:1940 Author Organization [employer] Address [address] [place] [address] Care Team Providers Name Role Phone Radha Martinez MD Primary Care Provider Encounter Details Date Type Department Care Team Description 02/22/2005 PN Conversion Only [facility] [place], [address] [place] [address] Social History Tobacco Use Types Packs/Day Years Used Date Smoking Tobacco: Never Assessed Sex Assigned at Date Recorded Not on file documented as of this encounter Last Filed Vital Signs Vital Sign Reading Time Taken Comments Blood Pressure 120/82 02/22/2005 9:37 AM CDT Pulse 72 02/22/2005 9:37 AM CDT Temperature - - Respiratory Rate - - Oxygen Saturation - - Inhaled Oxygen Concentration - - Weight 95.1 kg (209 lb 9.5 oz) 02/22/2005 9:37 AM C: 95 .1kg CDT Height 166.4 cm (5' 5.5) 02/22/2005 9:37 AM C: 166.4cm CDT Body Mass Index 34.35 02/22/2005 9:37 AM CDT documented in this encounter Plan of Treatment Upcoming Encounters Date Type Specialty Care Team Description 09/29/2022 Appointment Rheumatology Kal Davila MD [address] [address] (Wo rk) documented as of this encounter Visit Diagnoses Not on filedocumented in this encounter Care Teams Tooth Cutter Clutch Relationship Specialty Start Date End Date Radha Martinez MD PCP - General 11/13/10 02/28/18 [address] [place] [address] documented as of this encounter
--- OUTSIDE RECORDS SUMMARY | 2022-07-24 10:32 | XMS_ITS | Encounter Summary ---
:1940 Author Organization [facility] Address [address] [place] [address] Care Team Providers Name Role Phone Radha Martinez MD Primary Care Provider Encounter Details Date Type Department Care Team Description 02/27/2003 PN Conversion Only [facility] CONVERSION Urban Martinez MD [address] [place] [address] (Wo rk) Social History Tobacco Use Types Packs/Day Years Used Date Smoking Tobacco: Never Assessed Sex Assigned at Date Recorded Not on file documented as of this encounter Plan of Treatment Upcoming Encounters Date Type Specialty Care Team Description 09/29/2022 Appointment Rheumatology Kal Davila MD [address] [facility] N [id number] (Wo rk) documented as of this encounter Procedures Procedure Name Priority Date/Time Associated Comments Diagnosis THYROID STIMULATING Routine 02/27/2003 2:05 PM Re sults for this HORMONE CDT procedure are i n the results section. FREE T4 Routine 02/27/2003 2:05 PM Results f or this CDT procedure are i n the results section. documented in this encounter Results Free T4 (02/27/2003 2:05 PM CDT) P athologist Signature Thyroxine, Free 1.3 0.8 - 1.5 HP CONVERSION ng/dL Specimen (Source) Anatomical Collection Method Collection Time Re ceived Time Location / / Volume Laterality 02/27/2003 2:05 PM CDT Radha Martinez MD LAB_1 Performing Organization Address City/State/ZIP Code Phon e Number HP CONVERSION Thyroid Stimulating Hormone (02/27/2003 2:05 PM CDT) P athologist Signature Thyroid 1.29 0.20 - HP CONVERSION Stimulating 5.50 Hormone uIU/mL Specimen (Source) Anatomical Collection Method Collection Time Re ceived Time Location / / Volume Laterality 02/27/2003 2:05 PM CDT Radha Martinez MD LAB_1 Performing Organization Address City/[facility] Phon e Number HP CONVERSION documented in this encounter Visit Diagnoses Not on filedocumented in this encounter Care Teams Construction Assistant Relationship Specialty Start Date End Date Radha Martinez MD PCP - General 11/13/10 02/28/18 [address] [place] [address] documented as of this encounter
--- OUTSIDE RECORDS SUMMARY | 2022-07-24 10:33 | XMS_ITS | Encounter Summary ---
:1940 Author Organization [employer] Address [address], [place] [address] Care Team Providers Name Role Phone Unavailable Primary Care Provider Unavailable Encounter Details Date Type Department Care Team Description 10/11/1999 Hospital Encounter [facility] Neal Harris MD [address] [place] [id number] Vascular Services Trey Harris MD [address] [place] [phone] [facility] [place] [address] Social History Tobacco Use Types Packs/Day Years Used Date Smoking Tobacco: Never Assessed Sex Assigned at Date Recorded Not on file documented as of this encounter Plan of Treatment Upcoming Encounters Date Type Specialty Care Team Description 09/29/2022 Appointment Rheumatology Kal Davila MD [address] [facility] et [facility] N [id number] (Wo rk) documented as of this encounter Procedures Procedure Name Priority Date/Time Associated Comments Diagnosis [facility] PHARM STRESS CLARISA 10/11/1999 2:45 Results for this TEST PM BANK GUARD procedure are i n the results section. N/O NM MYOCARD Discharge 10/11/1999 12:00 Results f or this PERF 99MTC KAMRON & Decision PM BANK GUARD procedure are in REST the results section. N/O NUCM CARDIAC Routine 10/11/1999 12:00 Results for this SPECT WALL MOTION PM BANK GUARD procedure are in the results section. NUCM CARDIAC Routine 10/11/1999 12:00 Results for this SPECT EJECTION PM BANK GUARD procedure are in FRACTION the results section. documented in this encounter Results [facility] Pharm Stress Test (10/11/1999 2:45 PM BANK GUARD) Specimen (Source) Anatomical Collection Method Collection Time Re ceived Time Location / / Volume Laterality 10/11/1999 2:45 PM BANK GUARD Narrative HP CONVERSION - 10/11/1999 2:45 PM BANK GUARD Resting heart rate: 71 ?Resting blood pressure: 154/94 INDICATION FOR EXAM: ??Chest pain. MEDICATIONS: ??No medications which affe ct test results. PROTOCOL: ??Adenosine-sestamibi. SYMPTOMS: ??None; Protocol completed. ECG, REST: ??Right bundle branch block. ECG, STRESS: ??No significant ST segment shifts noted. CONCLUSION: ??1. ??Normal adenosine elec trocardiogram. ? 2. ??Sestamibi report under separate cover. ? 3. ??Premature ventri cular contractions throughout ? the infusion. Trey Harris MD PN CARDIAC SERVICES ORDERABL ES Performing Organization Address City/State/ZIP Code Phon e Number HP CONVERSION NM Myocard Perf 99Mtc Kamron & Rest (10/11/1999 12:00 PM BANK GUARD) Anatomical Region Laterality Modality Other Specimen (Source) Anatomical Location Collection Method / Collectio n Time Received Time / Laterality Volume Narrative 10/11/1999 12:00 PM BANK GUARD STRESS DATA: The patient received the standard adenosine protocol. She had no significant adenosine-induced hypotension symptoms or ECG changes. ??(Right bundle branch block th roughout test). ??15.3 and 46.3 mCi of Myoview were injected at rest and stress. REST/STRESS IMAGES: ??There is significa nt breast soft tissue attenuation on both the rest and stress studies. ??There is a medium-sized, mild, completely reversibl e apical anterior, anteroseptal and anterolateral dfefect c onsistent with abnormal flow reserve in the proximal left anterior de scending coronary territory. No evidence of infarction. ??Cardiac jay jay mber size appears normal. GATED IMAGE: ??Ejection fraction 61%. ?? End systolic volume 32 ml (Normal). ??All myocardial segments appe ar to brighten and contract normally throughout systole. CONCLUSION: 1. Abnormal adenosine perfusion scan con sistent with mild flow reserve abnormality of anterior wall and apex. 2. Normal left ventricular systolic func tion. ADDITIONAL COMMENT: ??Literature has rec ently shown that patients with normal left ventricular function and vicente metry, despite mild or moderate perfusion abnormalities, have a good prognosis over the next two to three years. ??Clinical correlati on advised. ??The finding of breast attenuation and the patient's chau ght and the very mild nature of the abnormality will decrease the acc uracy of this test for definitive diagnosis of coronary artery disease. Procedure Note Rajat Fernández - 10/20/2016 STRESS DATA: The patient received the st andard adenosine protocol. She had no significant adenosine-induced hypotension symptoms or ECG changes. (Right bundle branch block thro ughout test). 15.3 and 46.3 mCi of Myoview were injected at rest and stress. REST/STRESS IMAGES: There is significant breast soft tissue attenuation on both the rest and stress studies. There is a medium-sized, mild, completely reversibl e apical anterior, anteroseptal and anterolateral dfefect c onsistent with abnormal flow reserve in the proximal left anterior de scending coronary territory. No evidence of infarction. Cardiac chamb er size appears normal. GATED IMAGE: Ejection fraction 61%. End systolic volume 32 ml (Normal). All myocardial segments appear to brighten and contract normally throughout systole. CONCLUSION: 1. Abnormal adenosine perfusion scan con sistent with mild flow reserve abnormality of anterior wall and apex. 2. Normal left ventricular systolic func tion. ADDITIONAL COMMENT: Literature has recen tly shown that patients with normal left ventricular function and vicente metry, despite mild or moderate perfusion abnormalities, have a good prognosis over the next two to three years. Clinical correlation advised. The finding of breast attenuation and the patient's chau ght and the very mild nature of the abnormality will decrease the acc uracy of this test for definitive diagnosis of coronary artery disease. Trey Harris MD RAD NM NM Cardiac Spect Wall Motion (10/11/1999 12:00 PM BANK GUARD) Anatomical Region Laterality Modality Other Specimen (Source) Anatomical Location Collection Method / Collectio n Time Received Time / Laterality Volume Narrative 10/11/1999 12:00 PM BANK GUARD STRESS DATA: The patient received the standard adenosine protocol. She had no significant adenosine-induced hypotension symptoms or ECG changes. ??(Right bundle branch block th roughout test). ??15.3 and 46.3 mCi of Myoview were injected at rest and stress. REST/STRESS IMAGES: ??There is significa nt breast soft tissue attenuation on both the rest and stress studies. ??There is a medium-sized, mild, completely reversibl e apical anterior, anteroseptal and anterolateral dfefect c onsistent with abnormal flow reserve in the proximal left anterior de scending coronary territory. No evidence of infarction. ??Cardiac jay jay mber size appears normal. GATED IMAGE: ??Ejection fraction 61%. ?? End systolic volume 32 ml (Normal). ??All myocardial segments appe ar to brighten and contract normally throughout systole. CONCLUSION: 1. Abnormal adenosine perfusion scan con sistent with mild flow reserve abnormality of anterior wall and apex. 2. Normal left ventricular systolic func tion. ADDITIONAL COMMENT: ??Literature has rec ently shown that patients with normal left ventricular function and vicente metry, despite mild or moderate perfusion abnormalities, have a good prognosis over the next two to three years. ??Clinical correlati on advised. ??The finding of breast attenuation and the patient's chau ght and the very mild nature of the abnormality will decrease the acc uracy of this test for definitive diagnosis of coronary artery disease. Procedure Note Rajat Fernández Lizzy - 10/20/2016 STRESS DATA: The patient received the st andard adenosine protocol. She had no significant adenosine-induced hypotension symptoms or ECG changes. (Right bundle branch block thro ughout test). 15.3 and 46.3 mCi of Myoview were injected at rest and stress. REST/STRESS IMAGES: There is significant breast soft tissue attenuation on both the rest and stress studies. There is a medium-sized, mild, completely reversibl e apical anterior, anteroseptal and anterolateral dfefect c onsistent with abnormal flow reserve in the proximal left anterior de scending coronary territory. No evidence of infarction. Cardiac chamb er size appears normal. GATED IMAGE: Ejection fraction 61%. End systolic volume 32 ml (Normal). All myocardial segments appear to brighten and contract normally throughout systole. CONCLUSION: 1. Abnormal adenosine perfusion scan con sistent with mild flow reserve abnormality of anterior wall and apex. 2. Normal left ventricular systolic func tion. ADDITIONAL COMMENT: Literature has recen tly shown that patients with normal left ventricular function and vicente metry, despite mild or moderate perfusion abnormalities, have a good prognosis over the next two to three years. Clinical correlation advised. The finding of breast attenuation and the patient's chau ght and the very mild nature of the abnormality will decrease the acc uracy of this test for definitive diagnosis of coronary artery disease. Trey Harris MD RAD NM NM Cardiac Spect Ejection Fraction (10/11/1999 12:00 PM BANK GUARD) Anatomical Region Laterality Modality Other Specimen (Source) Anatomical Location Collection Method / Collectio n Time Received Time / Laterality Volume Narrative 10/11/1999 12:00 PM BANK GUARD STRESS DATA: The patient received the standard adenosine protocol. She had no significant adenosine-induced hypotension symptoms or ECG changes. ??(Right bundle branch block th roughout test). ??15.3 and 46.3 mCi of Myoview were injected at rest and stress. REST/STRESS IMAGES: ??There is significa nt breast soft tissue attenuation on both the rest and stress studies. ??There is a medium-sized, mild, completely reversibl e apical anterior, anteroseptal and anterolateral dfefect c onsistent with abnormal flow reserve in the proximal left anterior de scending coronary territory. No evidence of infarction. ??Cardiac jay jay mber size appears normal. GATED IMAGE: ??Ejection fraction 61%. ?? End systolic volume 32 ml (Normal). ??All myocardial segments appe ar to brighten and contract normally throughout systole. CONCLUSION: 1. Abnormal adenosine perfusion scan con sistent with mild flow reserve abnormality of anterior wall and apex. 2. Normal left ventricular systolic func tion. ADDITIONAL COMMENT: ??Literature has rec ently shown that patients with normal left ventricular function and vicente metry, despite mild or moderate perfusion abnormalities, have a good prognosis over the next two to three years. ??Clinical correlati on advised. ??The finding of breast attenuation and the patient's chau ght and the very mild nature of the abnormality will decrease the acc uracy of this test for definitive diagnosis of coronary artery disease. Procedure Note Rajat Fernández - 10/20/2016 STRESS DATA: The patient received the st andard adenosine protocol. She had no significant adenosine-induced hypotension symptoms or ECG changes. (Right bundle branch block thro ughout test). 15.3 and 46.3 mCi of Myoview were injected at rest and stress. REST/STRESS IMAGES: There is significant breast soft tissue attenuation on both the rest and stress studies. There is a medium-sized, mild, completely reversibl e apical anterior, anteroseptal and anterolateral dfefect c onsistent with abnormal flow reserve in the proximal left anterior de scending coronary territory. No evidence of infarction. Cardiac chamb er size appears normal. GATED IMAGE: Ejection fraction 61%. End systolic volume 32 ml (Normal). All myocardial segments appear to brighten and contract normally throughout systole. CONCLUSION: 1. Abnormal adenosine perfusion scan con sistent with mild flow reserve abnormality of anterior wall and apex. 2. Normal left ventricular systolic func tion. ADDITIONAL COMMENT: Literature has recen tly shown that patients with normal left ventricular function and vicente metry, despite mild or moderate perfusion abnormalities, have a good prognosis over the next two to three years. Clinical correlation advised. The finding of breast attenuation and the patient's chau ght and the very mild nature of the abnormality will decrease the acc uracy of this test for definitive diagnosis of coronary artery disease. Trey Harris MD RAD NM documented in this encounter Visit Diagnoses Not on filedocumented in this encounter
--- OUTSIDE RECORDS SUMMARY | 2022-07-24 10:33 | XMS_ITS | Encounter Summary ---
:1940 Author Organization [employer] Address [address] [place] [address] Care Team Providers Name Role Phone Unavailable Primary Care Provider Unavailable Encounter Details Date Type Department Care Team Description 09/13/1999 Hospital Encounter [facility]ORATION[facility] CONVERSION Trey Harris MD [address] [place] [address] Social History Tobacco Use Types Packs/Day Years Used Date Smoking Tobacco: Never Assessed Sex Assigned at Date Recorded Not on file documented as of this encounter Plan of Treatment Upcoming Encounters Date Type Specialty Care Team Description 09/29/2022 Appointment Rheumatology Kal Davila MD [address] [facility] N [address] (Wo rk) documented as of this encounter Procedures Procedure Name Priority Date/Time Associated Comments Diagnosis [facility] ECHOCARDIOGRAM REAL Routine 09/13/1999 10:25 Results for this TIME SCAN C AM STATE HISTORICAL SOCIETY DIRECTOR procedure are i n the results section. documented in this encounter Results [facility] ECHOCARDIOGRAM REAL TIME SCAN C (09/13/1999 10:25 AM STATE HISTORICAL SOCIETY DIRECTOR) Specimen (Source) Anatomical Collection Method Collection Time Re ceived Time Location / / Volume Laterality 09/13/1999 10:25 AM STATE HISTORICAL SOCIETY DIRECTOR Narrative HP CONVERSION - 09/13/1999 10:25 AM STATE HISTORICAL SOCIETY DIRECTOR ?Normals ?Normals LV(d) 40* mm (37-56) RV (d) ? mm (07-26) E ? 112 cm/sec (70-102) LV(s) 24* mm (23-34) Ao. Root 26* mm(20 -37) A ? 138 cm/sec (43- 69) Septum 13*mm (06-11) LA ? 42* mm (19-40) E:A ??0.8 ??ratio (1.1-2.1) LV Wall*12mm (06-11) VIKTORIYA ? cm^2 ?DT ?235 ms ?? (167-231) EF ?% ??(>55%) ??MVA ?cm^2 ?RV/RA Grad ?mmHg FS ?41* % ??(>25%) ??Mean Ao Grad ? mm Hg Est RA Pres * Two-dimensional. Ht.: ??5'7 ? Wt.: ??210 l bs INDICATION FOR EXAM: ??Murmur. CONCLUSION: Normal study, but for mild l eft atrial enlargement, and mild left ventricular hypertrophy. GENERAL COMMENTS: ??Adequate quality two -dimensional and Doppler. The patient's rhythm is sinus. VENTRICLES: ??Normal left ventricular ch christiano size, wall motion and wall thickness. ??The right ventricle is normal. ATRIA: ??Both atria appear normal. VALVES: ??All four valves are normal. GREAT VESSELS: ??The aortic root is norm al. ??The pulmonary artery cannot be assessed. ??The inferior vena cava is normal. PERICARDIUM: ??No pericardial effusion i s present. Pnc PN ECHO ORDERABLES Performing Organization Address City/State/ZIP Code Phon e Number HP CONVERSION documented in this encounter Visit Diagnoses Not on filedocumented in this encounter
--- OUTSIDE RECORDS SUMMARY | 2022-07-24 10:33 | XMS_ITS | Clinical Summary ---
:1940 Author Organization [facility] [place] [address] Care Team Providers Name Role Phone Terry Hanson MD Primary Care Provider Allergies Active Allergy Reactions Severity Noted Date Comments Propoxyphene Other - Describe In Comment Field Medium Lethargy Sulindac Hives High 06/03/2003 Medications Medication Sig Dispensed Refills Start Date End Date Status atenolol (TENORMIN) Take 1 tablet by 0 01/19/2015 Active 25 mg tablet mouth once daily. lisinopril (PRINIVIL; Take 1 tablet by 0 01/19/2015 Active ZESTRIL) 40 mg tablet mouth once daily. omeprazole (PRILOSEC) Take 1 capsule by 0 01/19/2015 Active 20 mg Delayed-Release mouth once daily capsule before a meal. cholecalciferol Take 2,000 units by 0 01/19/2015 Active (VITAMIN D3) 2,000 mouth at bedtime. unit capsule amLODIPine (NORVASC) Take 5 mg by mouth 0 08/09/2017 Active 5 mg tablet once daily. atorvastatin Take 40 mg by mouth 0 11/13/2018 Active (LIPITOR) 40 mg at bedtime. tablet chlorthalidone Take 1 tablet by 0 11/13/2018 Active (HYGROTON) 25 mg mouth every tablet morning. levothyroxine Take 1 Tablet by 0 10/04/2021 Active (SYNTHROID) 75 mcg mouth before tablet breakfast. furosemide (LASIX) 20 Take 1 Tablet by 0 07/28/2021 Active mg tablet mouth once daily if needed (edema). predniSONE Take 2.5 mg by 0 10/03/2021 Act jn (DELTASONE) 5 mg mouth once daily. tablet methotrexate Take 1 Tablet by 0 06/28/2021 Active (RHEUMATREX) 2.5 mg mouth every Sunday. tablet folic acid 1 mg Take 1 Tablet by 0 06/28/2021 Active tablet mouth once daily. allopurinoL Take 250 mg by 0 Act jn (ZYLOPRIM) 100 mg mouth once daily. tablet acetaminophen Take 1,000 mg by 0 Active (TYLENOL EXTRA mouth at bedtime. STRGTH) 500 mg tablet Max acetaminophen dose: 4000mg in 24 hrs. aspirin (ECOTRIN) 81 Take 1 Tablet (81 60 Tablet 0 10/19/2021 Active mg enteric coated mg) by mouth 2 tabletIndications: times daily with Status post revision meals. of total replacement of left knee oxyCODONE Take 1-2 Tablets 30 Tablet 0 10/19/2021 Ac tive (ROXICODONE) 5 mg (5-10 mg) by mouth immediate release every 4 hours if tabletIndications: needed for Pain. 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 Hypertension Hypothyroidism Hypercholesteremia HLD (hyperlipidemia) Neuropathy Rheumatoid arthritis RLS (restless legs syndrome) Immunizations Name Administration Dates Next Due HepA-HepB (Twinrix) 11/20/2012, 10/17/2012 Influenza Virus, Unspecified 06/15/2020, 06/15/2020, 019, 05/15/2018, 06/06/2012, 06/27/2011, 06/14/2010, 05/21/2006, 05/21/2006, 08/10/2005, 08/10/2005, 05/04/2004, 05/04/2004, 06/05/2003, 07/25/2002, 08/08/2001 Influenza, High-dose Inactivated 07/09/2019, 07/01/2019, , 05/15/2018, 05/30/2017, 05/15/2016, 04/28/2014 Influenza, High-dose Quadrivalent 06/15/2020 Inactivated Influenza, IIV3 (Age 6-35 mos) 04/21/2013, 04/28/2009 Influenza, Inactivated AIIV4 (Age 65+ 07/08/2021, 06/15/2020 Years) Preserv Free Pneumococcal Poly,23-Valent 02/19/2006 (Pneumovax) Pneumococcal conj 13-Valent (Prevnar 05/04/2015 13) Td (Age >=7 Years) 07/19/1998 Tdap 09/24/2019, 03/26/2009 Typhoid (injectable) 10/17/2012 Zoster (Shingrix-RZV, recombinant) 10/18/2018, 08/09/2018 Zoster (Zostavax-ZVL, live) 07/01/2009, 04/01/2009 Family History Medical History Relation Name Comments Kidney cancer Brother two brother Heart failure Father CHF Stroke Mother Stroke Sister Relation Name Status Comments Brother Father Mother Sister Social History Tobacco Use Types Packs/Day Years Used Date Smoking Tobacco: Former Cigarettes Smokeless Tobacco: Never Tobacco Cessation: Counseling Given: Yes Alcohol Use Standard Drinks/Week Comments Yes 0 (1 standard drink = 0.6 oz pure alcoho l) 4-5 drinks per week Sex Assigned at Date Recorded Not on file Obstetrics History Last Filed Vital Signs Vital Sign Reading Time Taken Comments Blood Pressure 133/52 10/19/2021 12:29 PM PLANT HEALTH MANAGER Pulse 70 10/19/2021 12:29 PM PLANT HEALTH MANAGER Temperature 36.8 ??C (98.2 ??F) 10/19/2021 12:29 PM PLANT HEALTH MANAGER Respiratory Rate 16 10/19/2021 12:29 PM PLANT HEALTH MANAGER Oxygen Saturation 93% 10/19/2021 12:29 PM PLANT HEALTH MANAGER Inhaled Oxygen Concentration - - Weight 85.5 kg (188 lb 8 oz) 10/19/2021 1:00 AM PLANT HEALTH MANAGER Height 162.6 cm (5' 4) 10/18/2021 7:55 AM PLANT HEALTH MANAGER Body Mass Index 32.36 10/18/2021 7:55 AM PLANT HEALTH MANAGER Plan of Treatment Health Maintenance Due Date Last Done Comments Depression screening for age 12+ 1952 BMI (ht and wt on same day) for 02/27/1958 age 18+ DEXA/DXA scan for age 65+ 02/27/2005 Medicare Wellness for age 65+ 02/27/2005 COVID-19 vaccine series (4 - 09/02/2021 07/08/2021, 03/01/2 021, Booster for Pfizer series) 09/20/2020 Influenza for age 65+ 04/13/2022 07/08/2021, 06/15/2020, 06/15/2020, Additional history exists Tetanus booster 09/24/2029 09/24/2019, 03/26/2009, 07/19/1998 Pneumococcal series for age 65+ Completed 05/04/2015, 02/10 Zoster (shingles) series for age Completed 10/18/2018, , 50+ 07/01/2009, Additional history exists Tdap Completed 09/24/2019, 03/26/2009 Medical Devices Implanted Type Area Slat Twister Device Shelf Model / Identifier Expiration Date Ser ial / Lot Triathlon Femoral Posterior Augment Left: Supai 06/01/2025 / Implanted: Qty: 1 on 10/18/2021 by Kevin Hogue MD at [facility] [employer] [id number] / [id number] Results Not on filefrom Last 3 Months Insurance Payer Benefit Plan / Subscriber ID Effective Dates Phone Addre ss Type Group MEDICARE PART B MEDICARE PART B [id number] 2005-Present ATTN: CLAIMS - HB USE ONLY HB ONLY [address] [place] [address] MEDICARE MEDICARE [id number] 2005-Present [address] PROVIDER BASED PROVIDER BASED [place] [address] MEDICARE - PB MEDICARE PB [id number] 2005-Present ATT N: CLAIMS USE ONLY ONLY [address] [place] [address] FOR [id number] 2021-Presen [address] [place] [address] FOR [id number] 2005-Present [address] [place] [address] Advance Directives Documents on File Type Date Recorded Patient Three Knife Trimmer Explanati on Healthcare Directive 10/20/2021 8:51 AM 04/28/2009 Latest Code Status on File Code Status Date Activated Date Inactivated Comments Full Code 10/18/2021 2:53 PM 10/19/2021 5:32 PM Question Answer Comments Code Status Discussion: Reviewed Preferences Code Status History Code Status Date Activated Date Inactivated Comments Full Code 10/18/2021 7:44 AM 10/18/2021 11:53 AM Question Answer Comments Code Status Discussion: Unable to Assess Preferences, Provid er to review later Care Teams Twisthand Relationship Specialty Start Date End Date Terry Hanson MD PCP - General Family Practice 03/10/15
--- OUTSIDE RECORDS SUMMARY | 2022-07-24 10:33 | XMS_ITS | Encounter Summary ---
:1940 Author Organization [facility] Address [address] [place] [address] Care Team Providers Name Role Phone Unavailable Primary Care Provider Unavailable Encounter Details Date Type Department Care Team Description 05/04/2000 - Hospital Encounter Zoroastrianism Wilder Womack MD [address] [place] [address] 05/08/2000 [id number] Wilder Womack MD [address] [place] [address] [place] [address] [employer], [place] [address] Social History Tobacco Use Types Packs/Day Years Used Date Smoking Tobacco: Never Assessed Sex Assigned at Date Recorded Not on file documented as of this encounter Discharge Summaries Wilder Womack MD - 05/29/2000 12:01 AM CDT Discharge Summaries signed by [employer] at 05/29/00 0800 Author: Wilder Womack MD Service: (none) Author Type: Physician Filed: 11/30/101900 Note Time: 05/29/00 0741 Status: Signed Power Plant Electrician: Wilder Womack MD (Physician) NAME: ABIMBOLA SAMUELS MR#: [id number] JOB: [id number] DISCHARGE SUMMARY DATE OF ADMISSION: 05/04/00 DATE OF DISCHARGE: 05/07/00 ADMITTING DIAGNOSIS: DISCHARGE DIAGNOSIS: Osteoarthritis, left knee. OPERATIVE PROCEDURE THIS ADMISSION: Left total knee arthroplasty. HISTORY: This 60-year-old woman has had a long history of left knee pain which has been unrelieved with conservative treatment. She is admitted for knee replacement surgery. HOSPITAL COURSE: The patient underwent a left total knee on the day of admission. She remained stable postoperatively. She began therapy per routine total knee arthroplasty protocol. The rest of her hospital course was uncomplicated. By postop day #3, she was stable for discharge home. DISCHARGE MEDICATIONS: Percocet 1-2 p.o. q. 4-6h. p.r.n., Lovenox 30 mg subcu every 12h. CONDITION ON DISCHARGE/INSTRUCTIONS: Followup is as scheduled in one week. WILDER WOMACK MD MKT:[id number] C: DOCUMENT: [id number] GER INTELLIGENCE documented in this encounter Procedure Notes Wilder Womack MD - 05/04/2000 12:01 AM CDT OR Surgeon signed by [employer] at 05/04/00 1785 Author: Wilder Womack MD Service: (none) Author Type: Physician Filed: 11/30/10 1838 Note Time: 05/04/00 1449 Status: Signed Power Plant Electrician: Wilder Womack MD (Physician) NAME: ABIMBOLA SAMUELS MR#: [id number] JOB: [id number] OPERATIVE REPORT DATE OF OPERATION: 05/04/2000 INDICATIONS FOR PROCEDURE: This 60-year-old woman has had a long history of osteoarthritis involving the left knee. She had previously undergone a right total knee arthroplasty with good relief of her symptoms. She is now having constant pain on the left. After discussion of treatment options and benefits, she elected to proceed with knee replacement surgery. PREOPERATIVE DIAGNOSIS: Osteoarthritis, left knee. POSTOPERATIVE DIAGNOSIS: Osteoarthritis, left knee. PROCEDURE PERFORMED: Left total knee arthroplasty. SURGEON: WILDER WOMACK MD SENIOR INVESTMENT ANALYST: CLAY JAMES ANESTHESIA: Spinal. BLOOD LOSS: Minimal. COMPLICATIONS: None. FINDINGS: DESCRIPTION OF OPERATION: Informed consent was obtained. The patient was brought to the operating room and after placement of spinal anesthetic, she was positioned supine. A tourniquet was placed around the proximal left thigh and the left lower extremity was prepped and draped sterilely. The leg was elevated, exsanguinated and a tourniquet was inflated to 350 mmHg. We began with a midline longitudinal incision centered over the patella, dissecting to the subcutaneous tissues to expose the distal quadriceps tendon and medial retinaculum. The medial arthrotomy was made. A rongeur was used to remove osteophytes around the femur. A hole was drilled into the distal femoral intramedullary canal. The distal femoral cutting guide was placed and 10 mm was resected from the distal femur. We sized her for a #7 femoral component. The cutting block was positioned in three degrees of external rotation and the cuts were completed. Trial reduction was performed and there was excellent fit of the #7 component. The tibial alignment guide was positioned to resect 2 mm of bone from the deficient medial tibial plateau. The cut was completed. We sized her for a #7 tibial component. Trial reduction was performed and there was good alignment of the leg and good medial lateral soft tissue balance. The final position for the tibial component was adjusted and the punch for the tibial stem was impacted. The anterior surface of the patella was resected, removing 8 mm of bone. We sized her for a #7 patellar component and the three holes for the fixation pegs were drilled. The components were brought onto the field. The cut surfaces of the bone were thoroughly irrigated with pulsatile jet lavage and thoroughly dried. Bone cement was mixed and when ready, all components were cemented simultaneously. A trial reduction was again performed and there was easy full extension of the leg and good medial lateral soft tissue balance using the 12-mm tibial insert. The insert was then placed. The knee was passed through a range of motion. There was excellent tracking of the patella. The wound was then thoroughly irrigated and closed over a medium Hemovac suction drain using multiple 0 Vicryl sutures to close the quadriceps tendon and medial retinaculum. Vicryl 2-0 was used to close the subcutaneous tissues and lindsey to reapproximate the skin. Sterile dressings were applied. The tourniquet was deflated and the patient was taken to recovery in stable condition. At the end of the case, all sponge and needle counts were correct. Estimated blood loss was minimal. There were no complications. WILDER WOMACK MD MKT:[id number] C: DOCUMENT: [id number] GER INTELLIGENCE documented in this encounter Miscellaneous Notes Miscellaneous - Wilder Womack MD - 05/08/2000 12:01 AM CDT ICD-9-CM ICD-9-CM Narrative description Code ======== DIAGNOSES Principal: OSTEOARTHROS NOS-L/LEG 715.96 Secondary: HYPERTENSION NOS 401.9 HYPOTHYROIDISM NOS 244.9 TOBACCO USE DISORDER 305.1 RT BUNDLE BRANCH BLOCK 426.4 KNEE JOINT REPLACEMENT STATUS V43.65 PROCEDURES Provider Date Principal: TOTAL KNEE REPLACEMENT WILDER WOMACK [id number] 81.54 documented in this encounter Plan of Treatment Upcoming Encounters Date Type Specialty Care Team Description 09/29/2022 Appointment Rheumatology Kal Davila MD [address] [facility] [place] [address] (Wo rk) documented as of this encounter Procedures Procedure Name Priority Date/Time Associated Diagnosis Comme nts XR PORT KNEE STAT 05/04/2000 4:00 PM Results f or this CDT procedure are i n the results section. TYPE AND SCREEN Routine 05/04/2000 10:30 AM Resul ts for this CDT procedure are i n the results section. HEMOGLOBIN, BLOOD Routine 05/04/2000 10:30 AM Res ults for this CDT procedure are i n the results section. URINE CULTURE Routine 05/04/2000 10:14 AM Results for this CDT procedure are i n the results section. URINALYSIS Routine 05/04/2000 10:13 AM Results for this CDT procedure are i n the results section. documented in this encounter Results XR Port Knee (05/04/2000 4:00 PM CDT) Anatomical Region Laterality Modality Other Specimen (Source) Anatomical Location Collection Method / Collectio n Time Received Time / Laterality Volume Narrative 05/04/2000 4:00 PM CDT PORTABLE LEFT KNEE: Status post total knee arthroplasty with good alignment and drains in place. (017) catalina C: 05/05/00 6:35:39 PM Procedure Note Wilder Womack - 10/20/2016 PORTABLE LEFT KNEE: Status post total knee arthroplasty with good alignment and drains in place. (017) catalina C: 05/05/00 6:35:39 PM Wilder Womack MD RAD PORTABLE Hemoglobin, Blood (05/04/2000 10:30 AM CDT) P athologist Signature Hemoglobin 12.8 11.8 - 15.5 HP CONVERSION gm/dL Specimen (Source) Anatomical Collection Method Collection Time Re ceived Time Location / / Volume Laterality 05/04/2000 10:30 AM CDT Lab Conversion LAB_1 Performing Organization Address City/[facility] Code Phon e Number HP CONVERSION Type And Screen (05/04/2000 10:30 AM CDT) P athologist Signature BB BLOOD TYPE A POS No normal HP CONVERSION (BLOOD GROUP & range RH) N/O BB NEG No normal HP CONVERSION ANTIBODY range SCREEN Specimen (Source) Anatomical Collection Method Collection Time Re ceived Time Location / / Volume Laterality 05/04/2000 10:30 AM CDT Lab Conversion PN BLOOD BANK ORDERS Performing Organization Address [facility]/ZIP Code Phon e Number HP CONVERSION Urine Culture (05/04/2000 10:14 AM CDT) [facility] Time Signature Urine Culture SEE TEXT HP CONVERSION Comment: Patient: ABIMBOLA SAMUELS H Culture, Urine @ ?Collected: ??[id number] ??1014 Source: Clean Ca ?Processed: ??[id number] ??1220 ? Clean Catch Urine Final Report ------ ?[id number] ??1012 <10,000 CFU/mL Mixed gram positive organ isms and gram negative organisms No further workup @ = URINE CULTURE Performed at ??[address], [place], [place] ?[address] URINE CULTURE ([id number] -- Current) Specimen (Source) Anatomical Collection Method Collection Time Re ceived Time Location / / Volume Laterality 05/04/2000 10:14 AM CDT Lab Conversion LAB_1 Performing Organization Address City/State/ZIP Code Phon e Number HP CONVERSION Urinalysis (05/04/2000 10:13 AM CDT) [facility] gist Method Time Signature Color Yellow No normal HP CONVERSION range Turbidity Clear No normal HP CONVERSION range U Specific 1.017 1.001 - HP CONVERSION [place]he[place] 1.035 pH Urine 5.0 4.5 - 7.5 HP CONVERSION Protein Urine Negative Neg-Trac HP CONVERSION Glucose, Negative Neg-Trac HP CONVERSION Qualitative U Ketones Negative Negative HP CONVERSION U BILI Negative Negative HP CONVERSION Blood Urine Negative Negative HP CONVERSION Nitrite Urine Negative Negative HP CONVERSION Leukocyte Negative Negative HP CONVERSION Esterase Urine Urobilinogen Negative 0.2 - 1.0 HP CONVERSION Urine Microscopic None Det No normal HP CONVERSION range Specimen (Source) Anatomical Collection Method Collection Time Re ceived Time Location / / Volume Laterality 05/04/2000 10:13 AM CDT Lab Conversion LAB_1 Performing Organization Address City/State/ZIP Code Phon e Number HP CONVERSION documented in this encounter Visit Diagnoses Not on filedocumented in this encounter
--- OUTSIDE RECORDS SUMMARY | 2022-07-24 10:33 | XMS_ITS | Encounter Summary ---
:1940 Author Organization [employer] Address [address], [place] [address] Care Team Providers Name Role Phone Unavailable Primary Care Provider Unavailable Encounter Details Date Type Department Care Team Description 10/21/1999 Hospital Encounter Confucianist 3S Vikas Brothers MD [address] [address] Med-Coronary Outpatient Rita Brothers MD [address] [address] [address] [facility] [address] [place], [place] [address] Social History Tobacco Use Types Packs/Day Years Used Date Smoking Tobacco: Never Assessed Sex Assigned at Date Recorded Not on file documented as of this encounter Progress Notes Rita Brothers MD - 10/21/1999 12:01 AM CST Procedures signed by [employer] at 10/21/99 1114 Author: Rita Brothers MD Service: (none) Author Type: Physician Filed: 11/30/10 1537 Note Time: 10/21/99 0959 Status: Signed Cupola Charger: Rita Brothers MD (Physician) NAME: NINA REYES MR#: [id number] JOB: [id number] CARDIAC CATHETERIZATION DATE OF PROCEDURE: PROCEDURE: Selective coronary angiography. Left ventriculography. PROCEDURE DETAILS: Following informed consent, the skin overlying the right femoral artery was prepped and draped in the usual fashion. A 5 Danish sheath was introduced percutaneous into the right femoral artery. A Lucila right #4 and left #4 coronary catheter were advanced to their respective coronary ostium. Following the coronary angiography, a bent pigtail catheter was advanced retrograde across the aortic valve for left ventriculography. A total of 101 cc of Optiray contrast was used and a total of 2.3 minutes of fluoro time. INDICATION: A 59-year-old woman with positive adenosine perfusion scan and exertional shortness of breath. HEMODYNAMICS: The pulse varied between 70 and 85. The left ventricular end- diastolic pressure varied between 17 and 20. The aortic pressure varied between 135 to 140/70 and 80. LEFT VENTRICULOGRAM: Ejection fraction 62%, normal left ventricular function. No regional wall motion abnormalities. CORONARY ANGIOGRAPHY: Completely normal right dominant coronary arteries. No evidence of luminal irregularities, no evidence of calcium. The left main, LAD, circumflex and right coronary artery systems are all completely normal. ASSESSMENT: 1. Likely false positive nuclear perfusion study. 2. Normal coronary arteries. 3. Normal left ventricular function. 4. Mild borderline systolic hypertension with borderline elevation of left ventricular and diastolic pressure. COMPLICATIONS: None. PLAN: The patient will follow up with her physician, Dr. Trey Canela and continue antihypertensive therapy which she appears to be tolerating quite well. RITA BROTHERS MD CC: TREY CANELA MD JJM:[id number] C: DOCUMENT: [id number] [place] SALES MERCHANDISER documented in this encounter Miscellaneous Notes Miscellaneous - Rita Brothers MD - 10/21/1999 12:01 AM CST ICD-9-CM ICD-9-CM Narrative description Code ======== DIAGNOSES Principal: SHORTNESS OF BREATH 786.05 Secondary: ABN CARDIOVASC STUDY NEC 794.39 HYPERTENSION NOS 401.9 OBESITY, UNSPECIFIED 278.00 HYPOTHYROIDISM NOS 244.9 PROCEDURES Provider Date Principal: LEFT HEART CARDIAC CATH RITA BROTHERS [id number] 37.22 Secondary: CORONAR ARTERIOGR-2 CATH RITA BROTHERS [id number] 88.56 LT HEART ANGIOCARDIOGRAM RITA BROTHERS [id number] 88.53 documented in this encounter Plan of Treatment Upcoming Encounters Date Type Specialty Care Team Description 09/29/2022 Appointment Rheumatology Kal Davila MD [address] [facility] [place] [address] (Wo rk) documented as of this encounter Visit Diagnoses Not on filedocumented in this encounter
--- OUTSIDE RECORDS SUMMARY | 2022-07-24 10:33 | XMS_ITS | Encounter Summary ---
:1940 Author Organization [employer] Address [address], [place] [address] Care Team Providers Name Role Phone Unavailable Primary Care Provider Unavailable Encounter Details Date Type Department Care Team Description 09/27/1999 Hospital Encounter [facility] [address] Mackenzie Christensen MD [address] [place], [place] [address] Endoscopy Mackenzie Christensen MD [address] [place] [address] [address] [facility] [place], [place] [address] Social History Tobacco Use Types Packs/Day Years Used Date Smoking Tobacco: Never Assessed Sex Assigned at Date Recorded Not on file documented as of this encounter Procedure Notes Mackenzie Christensen MD - 09/30/1999 12:01 AM CST Procedures signed by [employer] at 10/10/99 3098 Author: Mackenzie Christensen MD Service: (none) Author Type: Physician Filed: 11/30/10 1517 Note Time: 09/30/99 0000 Status: Signed Metal Model Maker: Mackenzie Christensen MD (Physician) ATTENDING MD: Fermin Vaca _ Patient Name: Princess Samuels Gender: F Exam Date: 09/27/1999 10:40:18 AM _ Procedure: Colonoscopy Indications: Follow-up of polyps Providers: Trey Cuadra MD (Referring MD), Mackenzie Christensen MD Medicines: Midazolam 7.0 mg IV, Fentanyl 0.15 mg IV Complications: No immediate complications _ Procedure: The procedure, indications, benefits, risks, and alternatives were explained to the patient. Specifically discussed were potential complications including bleeding, perforation, infection, adverse medication reaction, over sedation, and missed diagnosis. The patient was placed in the left lateral decubitus position and a digital rectal exam was performed. The Olympus Colonoscope was inserted into the anus and under direct visualization advanced to the cecum. Careful inspection was made as the colonoscope was withdrawn. The quality of the prep was good. The patient tolerated the procedure well. There were no complications. Findings: There was no evidence of significant pathology in the entire colon. Impression: - Normal colon. Recommend: - Repeat Colonoscopy for surveillance in 5 years assuming we have records that prove polyps adenomatous on previous flex sig. Pt states the colonoscopy was normal. Mackenzie Christensen MD NESS PROGRAM COORDINATOR documented in this encounter Plan of Treatment Upcoming Encounters Date Type Specialty Care Team Description 09/29/2022 Appointment Rheumatology Kal Davila MD [address] [facility] [place] [address] (Wo rk) documented as of this encounter Visit Diagnoses Not on filedocumented in this encounter
[2022-07-24 12:28] LABS: Albumin* 4.7 g/dL (3.3-5.0); Chloride* 108 mmol/L (96-114)
[2022-07-24 12:29] LABS: Potassium* 4.6 mmol/L (3.6-5.1); Sodium* 142 mmol/L (135-149)
[2022-07-24 12:31] LABS: Alkaline Phosphatase* 100 U/L (40-150); Aspartate Amino Transferase* 27 U/L (12-35); Bilirubin Total* 0.9 mg/dL (0.1-1.5); Blood Urea Nitrogen* 24 mg/dL (7-30); Carbon Dioxide* 26 mmol/L (20-32); Cholesterol* 181 mg/dL (90-199); Creatinine* 1.6 mg/dL (0.5-1.5); Estimated Glomerular Filt Rate 32 ml/min; Glucose* 98 mg/dL (60-115); Total Protein* 7.2 g/dL (6.0-8.3)
[2022-07-24 12:32] LABS: Alanine Aminotransferase* 16 U/L (4-35); Calcium* 9.7 mg/dL (8.4-10.6); HDL Cholesterol* 52 mg/dL (>=50); LDL Cholesterol Calculated 92 mg/dL (<100); Triglycerides* 189 mg/dL (40-149)
== END 2022-07-24 10:28 | disposition home or self-care (01) ==
PROVIDERS: PCP Family Medicine; Visit Provider Family Medicine
DX: E78.5 Hyperlipidemia, unspecified (principal); E03.9 Hypothyroidism, unspecified
CPT/HCPCS: 80053; 80061; 84443

== ENCOUNTER 2022-07-26 13:14 | Day surgery (SDC) | payer MEDICARE, OTHER, SELFPAY ==
[2022-07-26] MEDS: TETRACAINE 0.5% OPHTH 1 DROP EYE-RIGHT (13:40)
[2022-07-26] MEDS: TETRACAINE 0.5% OPHTH 1 DROP EYE-LEFT (13:40)
[2022-07-26 13:42] VITALS: BP 151/70; PULSE 82; RESP 16; TEMP 36.9; O2SAT 96
[2022-07-26 13:43] VITALS: BMI 29.5
[2022-07-26] MEDS: SODIUM CHLORIDE 0.9 % (FLUSH) 10 ML SYRINGE IVF (13:56)
[2022-07-26] MEDS: TETRACAINE 0.5% OPHTH 2 DROP EYE-BOTH (14:31)
[2022-07-26] MEDS: BUPIVACAINE 0.5 %/EPI 1:200K 30 ML INJECTION (14:39)
--- NOTE | 2022-07-26 14:53 | SUR.OPER ---
PAYROLL AND BENEFITS ASSISTANT did discontinue left arm IV and restarted Right arm IV prior to Procedure start.
[2022-07-26 15:48] VITALS: BP 155/78; PULSE 80; RESP 16; TEMP 36.3; O2SAT 98
--- NOTE | 2022-07-26 15:50 | P.OPTPRC_ITS ---
Procedure Note Date of procedure: 07/26/[address] [facility] bill your pro fee for this procedure?: Yes Procedure Description: SURGEON: Andreina Martinez MD PREOPERATIVE DIAGNOSIS: Dermatochalasis, bilateral upper eyelids. POSTOPERATIVE DIAGNOSIS: Dermatochalasis, bilateral upper eyelids. NAME OF OPERATION: Bilateral upper eyelid blepharoplasty. ANESTHESIA: Local monitored anesthesia care. ESTIMATED BLOOD LOSS: Less than 2 cc. COMPLICATIONS: None. IMPLANTS: None. INDICATIONS: The patient is seen today for bilateral upper eyelid blepharoplasty. The patient complains of upper eyelids interfering with vision. I reviewed the visual mora and facial photographs. Surgery was indicated for functional improvement of vision. The risks, benefits and alternatives were discussed pre-operatively. The risks included pain, infection, bleeding, poor cosmetic result, scarring, asymmetry, need for further treatment including surgery, inability to close lids, dry eyes, decreased vision, loss of vision and loss of eye. The benefits included improvement of symptoms. The alternative was observation and no surgery. All questions were answered to the patient's satisfaction, and the patient elected to proceed with the bilateral upper eyelid blepharoplasty. Informed consent was obtained. PROCEDURE: In a sitting position, the upper eyelid crease was marked with a marking pen, and the pinch technique was used to determine the amount of upper eyelid skin to be excised. A calipers was used to measure for symmetry and to confirm an appropriate amount of remaining skin. The patient was taken to the operating room. 4 cc of anesthetic was injected subcutaneously along the full extent of each upper eyelid. This anesthetic was made with 1:1 of 2% lidocaine with epinephrine and 0.5% bupivacaine. Both eyes were prepped and draped in the usual sterile ophthalmic fashion. The following was performed on both the right and left upper eyelid: A #15 blade was used to incise the skin. Bishops and Johnathan scissors were used to excise the skin and orbicularis muscle. Handheld cautery was used to achieve hemostasis. The eyelids were examined for symmetry. The skin was closed with a running 6-0 nylon suture. Erythromycin ointment was applied to the wounds. The patient tolerated the procedure well. DISPOSITION: The patient was sent to the recovery room and discharged to home in stable condition. The patient was given my postoperative instructions handout. The patient was told to ice as directed. The patient will apply erythromycin ophthalmic ointment to the eyelids three times a day until the sutures are removed, then for another three days. The patient will follow up in one week for suture removal or sooner as needed. The patient was instructed to call me or go to the emergency department with any sudden change, including dramatic loss of vision, excessive bleeding, redness or discharge from the incisions, or severe pain in the eye. Surgeon: Andreina Martinez MD
--- NOTE | 2022-07-26 15:54 | W.ANESCHARGE ---
Anesthesia Charges Start Date/Time Anesthesia Start Date: 07/26/22 Anesthesia Start Time: 14:29 Stop Date/Time Anesthesia Stop Date: 07/26/22 Anesthesia Stop Time: 15:49 Summary Emergency: No Extremes of Age: Over 70-CPT [address]
[2022-07-26 16:02] VITALS: BP 151/72; PULSE 77; RESP 16; O2SAT 99
--- NOTE | 2022-07-26 16:15 | W.ANESCHARGE ---
Anesthesia Charges Start Date/Time Anesthesia Start Date: 07/26/22 Anesthesia Start Time: 14:29 Stop Date/Time Anesthesia Stop Date: 07/26/22 Anesthesia Stop Time: 15:49 Summary Emergency: No Extremes of Age: Over 70-CPT [address]
== END 2022-07-26 16:32 | disposition home or self-care (01) ==
PROVIDERS: PCP Family Medicine; Visit Provider Ophthalmology
PROC: (CPT 15823; principal; 2022-07-26 13:15)
DX: H02.831 Dermatochalasis of right upper eyelid (principal); H02.834 Dermatochalasis of left upper eyelid; H53.8 Other visual disturbances
CPT/HCPCS: 15823; 00103; 99100; A9270; J2704; J3490

== ENCOUNTER 2022-09-27 15:50 | Outpatient (CLI) | payer MEDICARE, OTHER, SELFPAY ==
--- NOTE | 2022-09-27 16:00 | CRLHL7_ITS ---
For Patients: As a result of the Century Cures Act, medical imaging exams and procedure reports are released immediately into your electronic medical record. You may view this report before your referring provider. If you have questions, please contact your health care provider. INDICATION: Calf pain and swelling TECHNIQUE: Ultrasound venous duplex lower right extremity. Compression venous exam was performed using meléndez-scale, color Doppler, and spectral Doppler imaging. COMPARISON: None FINDINGS: Sonographic imaging demonstrates the right common femoral, deep femoral, superficial femoral, popliteal, posterior tibial and greater saphenous and the contralateral left common femoral veins to be fully compressible with normal color Doppler blood flow. 8.7 centimeter x 3.7 centimeter x 3.7 centimeter fluid collection medial to the knee. Diffuse lower extremity edema. IMPRESSION: Normal right lower extremity venous ultrasound, no sign of deep venous thrombosis. 8.7 centimeter x 3.7 centimeter x 3.7 centimeter fluid collection medial to the knee. Dictated by Chandrakant Martino MD @ 09/27/2022 5:25:41 PM Dictated by: Chandrakant Martino MD @ 09/27/2022 17:25:48 (Electronically Signed)
== END 2022-09-27 15:51 | disposition home or self-care (01) ==
PROVIDERS: PCP Family Medicine; Visit Provider Family Medicine
DX: R60.9 Edema, unspecified (principal); M79.661 Pain in right lower leg; M79.89 Other specified soft tissue disorders
CPT/HCPCS: 93971

== ENCOUNTER 2022-11-13 09:58 | Outpatient (CLI) | payer MEDICARE, OTHER, SELFPAY | END 2022-11-13 09:59 | disposition home or self-care (01) | PROVIDERS: PCP Family Medicine; Visit Provider Family Medicine | DX: Z01.818 Encounter for other preprocedural examination (principal) | CPT/HCPCS: 80048 ==

== ENCOUNTER 2022-11-23 08:16 | Day surgery (SDC) | payer MEDICARE, OTHER, SELFPAY ==
--- NOTE | 2022-11-13 12:05 | PT.OPEX ---
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 Pt previously underwent RTKA in 1994. Pt reports that she fell 1.5 years ago, leading to LTKA revision in October of 2021. Pt is experiencing pain with functional activities. Pt states that she takes Tylenol and Tramadol at night for pain management. Pt lives at home with , multi-level, 2 steps to enter with R rail. Has RW, SPC, raised toilet seat. Pt reports that she continues to have pain in L knee even after revision. PMHx: LTKA in 1999, RTKA in 1994, and HTN Pain Comments 02/19 Date of Last Physician Visit 11/13/22 Date of Next Physician Visit 11/30/22 Date of Surgery (If applicable) 11/23/22 Current Work Status Retired Occupation Retired Preferred Name [employer] Precautions Treatment Precautions/Contraindications PMHx: LTKA in 1999, RTKA in 1994, and HTN. Weight Bearing Status Weight Bear as Tolerated Therapy Limitations/Systems Review Not Limited Objective Range of Motion R knee = 0-115 L knee = 0-112 Strength R hip flexion = 3/5 L hip flexion = 3+/5 R hip add= 4/5 L hip add= 4-/5 R/L abd = 5/5 R quads = 3/5 *pain with knee ext L quads = 4-/5 R/L hamstrings = 4+/5 Swelling Inc swelling in R knee Balance & Gait Pt with antalgic gait pattern with dec B step length, mod trunk sway, and B knee valgus. Assessment Assessment/Impression Pt is a 82yo F presenting pre- op RTKA on 11/23/[address] Martinez. PMHx: LTKA in 1999, RTKA in 1994, and HTN. Pt reports that she has fallen 3x in the past 1.5 years. Underwent L knee revision in October 2021. Continues to have L knee pain. Reports that R knee pain has gotten worse. Has pain with all functional activities. Pt demonstrates antalgic gait pattern with B knee valgus, dec B step length , and mod trunk sway. Pt with BLE weakness, R>L. B knee ROM WNLs. Pt was educated on potential equipment needs, HEP , POC, cryotherapy, wound care , stair training and post-op precautions. Pt would continue to benefit from skilled PT services to address post-op impairments to functional mobility. Primary Functional Limitations Pain with functional activities Dec BLE strength Plan of Care Rehabilitation Potential Good Physical Therapy Goals In one session: 1. Pt will be IND with TKA HEP in order to perform post-op 3x/day. 2. Pt will provide verbal understanding of stair negotiation using step to gait pattern in order to IND navigate stairs post-op. Within 4-6 weeks: 1.Pt will display active left knee ROM 0-120 deg to improve quality & safety of stair climbing. 2.Pt will display improved mechanics going up/down 13 stairs with a reciprocal pattern using 2 railings in order to safely get into house and 2nd floor of her home. 3. Pt will be independent with HEP to promote strength and decrease fall risk. 4.Pt will display improved left hip flex, hip ABD, quad and hamstring strength >4/5 in order to improve quality of gait without assistive device. 5.Pt will be able to stand for >15 minutes with R knee pain </= 2/10 in order to aid in meal preparation. Coordination/Communication With Referral Source Treatment Plan/Direct Interventions Gait Training,Joint Mobilization,Manual Therapy, Neuromuscular Re-ed,Self-Care/ Home Management,Therapeutic Activities,Therapeutic Exercises Frequency/Duration 2x/week for 6-8 weeks Patient Will Be Discharged From Therapy Completion of LTG(s),Skills Plateau,Independent w/HEP, Independently Progressing Evaluation Billing Untimed Code Treatment Minutes 15 PT Eval No Charge No Complexity Moderate Certification Information Initial Certification Date 11/13/22 Ending Certification Date 02/12/23 Provider Signature Shows Agreement With POC & Medical Necessity Physician Comment/Change : Physician NPI Number #
[2022-11-23] VITALS (27 sets, daily range): BP systolic 92–175; BP diastolic 46–106; PULSE 43–74; RESP 12–20; TEMP 35.1–36.9; O2SAT 90–100; BMI 28.5
[2022-11-23] MEDS: LACTATED RINGERS 1000 ML 1,000 ML 100 ML IV ×2 (08:20→10:49)
[2022-11-23] MEDS: CELECOXIB 200 MG CAPSULE PO (08:54)
[2022-11-23] MEDS: ACETAMINOPHEN 500 MG TABLET 1000 MG PO ×3 (08:54→22:59)
[2022-11-23] MEDS: SODIUM CHLORIDE 0.9 % (FLUSH) 10 ML SYRINGE IVF (09:15)
--- NOTE | 2022-11-23 09:42 | SUR.PREOP ---
TIME?OUT:?0943 PT/RN/MDA?VERIFICATION?OF?SURGICAL?SITE,?PROCEDURE,?AND?CONSENT OBTAINED?PRIOR?TO?INVASIVE?PROCEDURE.
[2022-11-23] MEDS: CEFAZOLIN 2 GM INJ IVP (10:45)
[2022-11-23] MEDS: TRANEXAMIC ACID 100 MG/ML INJ 1000 MG IV (10:50)
--- NOTE | 2022-11-23 12:36 | W.PM.NB ---
Nerve Block Nerve Block Time Seen by Provider: 09:45 Date Seen: 11/23/22 Type of block requested by surgeon for post-operative analgesia: adductor canal Side: right Time out performed: Yes Verification of patient name: Yes Verification of date of : Yes Site marking: site marked Name of person performing procedure: Ed Continuous monitoring Was continuous monitoring of O2 sat, B/P, nuclear monitoring technician, recorded every 15 minutes?: Yes Procedure Checklist: sterile prep, needles and gloves Ultrasound guided. Images saved: Yes Medications given in 5ml increments after negative aspiration: Ropivicaine %: 0.5 mL: 20 Needle gauge: 20 Decadron (mg): 10 Precedex (mcg): 25 Patient tolerated procedure well: Yes Additional comments: Needle noted adjacent to nerve Block Charges Block Charge (with Pro Fee): Femoral Nerve Use of Ultrasound Machine for Block: Yes- US Guidance/pain block
--- NOTE | 2022-11-23 12:37 | W.ANESCHARGE ---
Anesthesia Charges Start Date/Time Anesthesia Start Date: 11/23/22 Anesthesia Start Time: 10:28 Stop Date/Time Anesthesia Stop Date: 11/23/22 Anesthesia Stop Time: 13:56 Summary Extremes of Age - Over 70 or under 1: MDA
--- NOTE | 2022-11-23 12:37 | W.PM.NB ---
Nerve Block Nerve Block Time Seen by Provider: 09:45 Date Seen: 11/23/22 Type of block requested by surgeon for post-operative analgesia: geniculars Side: right Time out performed: Yes Verification of patient name: Yes Verification of date of : Yes Site marking: site marked Name of person performing procedure: Ed Continuous monitoring Was continuous monitoring of O2 sat, B/P, property assessment monitor, recorded every 15 minutes?: Yes Procedure Checklist: sterile prep, needles and gloves Medications given in 5ml increments after negative aspiration: Ropivicaine %: 0.5 mL: 9 Needle gauge: 25 Patient tolerated procedure well: Yes Block Charges Block Charge (with Pro Fee): Genicular Nerve Block Use of Ultrasound Machine for Block: No
--- NOTE | 2022-11-23 13:04 | CRLHL7_ITS ---
For Patients: As a result of the Cures Act, medical imaging exams and procedure reports are released immediately into your electronic medical record. You may view this report before your referring provider. If you have questions, please contact your health care provider. Indication: POST OP TKA Technique: Two views right knee Findings/Impression: Hardware from a long stemmed total knee arthroplasty is in satisfactory position. Bone alignment is normal. No sign of acute fracture. Postop changes are within normal limits. Dictated by Chandrakant Anton MD @ 11/24/2022 9:33:53 AM (Electronically Signed)
--- NOTE | 2022-11-23 13:10 | P.ORPRC_ITS ---
Procedure Note Date of procedure: 11/23/22 Procedure: PREOPERATIVE DIAGNOSIS: Aseptic loosening Right total knee arthroplasty POSTOPERATIVE DIAGNOSIS: Aseptic loosening Right total knee arthroplasty NAME OF OPERATION: Revision Right total knee arthroplasty SURGEON: Juanjose Martinez MD WAREHOUSE LOADER: Sharee Adhikari PA-C, VAMSI Lopez ANESTHESIA: Spinal ESTIMATED BLOOD LOSS: 0 mL COMPLICATIONS: None SPECIMENS: None DRAINS: None PREOPERATIVE ANTIBIOTICS: Ancef 1 grams, antibiotic impregnated cement IMPLANTS: 1. J&J Attune revision CRS # 5 posterior stabilized femur, 30 mm sleeve, 18 mm x 60 mm stem 2. # 5 rotating platform tibia, 37 mm sleeve, 16 mm x 60 mm stem 3. # 5 posterior stabilized, 6 mm rotating platform polyethylene 4. Patellar component: None INDICATIONS: The patient is a 82-year-old who underwent successful right total knee arthroplasty in 1994. This has become progressively painful and is determined to be loose. Revision total knee arthroplasty was offered. The risks, benefits and expected outcomes were discussed in detail. These included but were not limited to: Infection, bleeding, injury to blood vessel or nerve, venous thromboembolism. All questions were answered to their satisfaction. Use of an food and nutrition services assistant was necessary throughout the case for patient positioning and safety, soft tissue retraction, and closure. A modifier 22 should be added to this case. Since this was a revision, exposure was more difficult, bone loss was significant, bone quality was poor and the reconstruction was difficult. This more than doubled the time typically required to complete the case. PROCEDURE: Spinal anesthesia was administered. The patient was placed supine on the operating table. The food and nutrition services assistant made sure the patient was positioned appropriately. The lower extremity was prepped and draped in the usual sterile fashion. The limb was exsanguinated with the Lind[place] bandage. The pneumatic tourniquet was inflated to 300 mmHg. The previously placed standard anterior incision was utilized with the knee in flexion. Subcutaneous dissection was sharply taken to the extensor mechanism. Full-thickness medial and lateral flaps were elevated. The food and nutrition services assistant retracted the soft tissues and protected them throughout the case. A standard medial parapatellar approach was made. The patella was everted. Scar was sharply debrided. The patellar component was grossly loose and fell off of the extensor mechanism. There was no bone remaining to reconstruct the patella. There was a small peripheral shell of patellar bone, none centrally. There were fragments of cement scattered where the patellar component was placed. The poly was removed. The oscillating saw with the ACL blade was used to free up the femoral component at the anterior, posterior and chamfer cuts both medially and laterally. The femoral component was tapped off with a tamp. There was bone loss both distally and posteriorly, medially and laterally. The PCL was subperiosteally released off of both its origin and insertion. Likewise, the posterior capsule was subperiosteally released off of the femur in order to improve our anterior excursion and tibial exposure. Attention then turned to the tibial component. Again the saw and flexible osteotomes were used to free up the implant medially, anteriorly and laterally. The extractor was then placed on the tibial component and it was tapped out of the bone freeing it up at cement prosthesis interface. Most of the cement was still well bonded to the bone. It was removed with an osteotome and rongeur. The tibial canal was reamed on power to 19 mm. This had excellent chatter. We then broached to 37 mm. This had excellent rotational stability. We freshened up the tibial cut on top of the broach. The broach was removed. The tibial trial was placed and seated on the proximal tibia. Attention then turned to the femur. The femoral canal was reestablished with the Adson rongeur. The canal was reamed by hand to 19 mm. The 30 mm broach was used and had excellent rotational stability and press-Fit. The distal femoral cutting jig was secured to the broach. Rotation was set parallel to the trans epicondylar axis. The saw was used to freshen up the distal cut, removing 4 mm. The anterior, posterior and posterior chamfer cuts were freshened up. It was obvious that we are going to need distal and posterior augments on the femoral side. The boxed cutting jig was placed and the box cuts were made. The broach was removed, the trial femoral component was placed and was an excellent fit. A trial polyethylene was placed. The knee was nicely balanced in both flexion and extension. Trial components removed, cancellous surfaces were irrigated with pulse lavage, then thoroughly dried, by the food and nutrition services assistant. Components were assembled on the back table. We cemented the tibial component, then the femoral component. We placed the 6 mm polyethylene onto the tibial tray. The knee was brought into full extension. Excessive cement was removed. The cement was allowed to harden. The knee was taken through a range of motion and was found to be nicely balanced in both flexion and extension. The extensor mechanism tracks centrally. The food and nutrition services assistant did a three minute dilute Betadine solution soak. The food and nutrition services assistant irrigated the wound with 3 liters of normal saline via pulse lavage. The food and nutrition services assistant reapproximated the extensor mechanism with #1 Vicryl in an interrupted [id number] fashion. The food and nutrition services assistant then ran the extensor mechanism with a #1 PDO Stratafix. The food and nutrition services assistant closed the subcutaneous tissues with a 3-0 Stratafix and the skin with a running 3-0 Stratafix in a subcuticular fashion. Glue was used to seal the skin. The food and nutrition services assistant placed a dry dressing, SANDY stocking, and Polar Care. Sponge and needle counts were correct x2. The patient tolerated the procedure well. There were no apparent complications. They were carefully transferred to the hospital bed and taken to the postanesthesia care unit in satisfactory condition. PLAN: The patient will be mobilized with physical therapy. Aspirin will be used for DVT prophylaxis. They will be discharged to home once medically appropriate.
--- NOTE | 2022-11-23 13:55 | P.ANES_ITS ---
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
[2022-11-23] MEDS: LACTATED RINGERS 1000 ML 1,000 ML 75 ML IV (14:30)
[2022-11-23] MEDS: HYDROmorphone 0.5 mg/0.5 ml inj IVP ×2 (15:04→20:03)
[2022-11-23] MEDS: OXYCODONE 5 MG TABLET PO ×4 (16:00→21:48)
[2022-11-23] MEDS: CEFAZOLIN 1 GM in 0.9 % SODIUM CHLORIDE Mini-bag 100 ML IVPB (16:39)
--- NOTE | 2022-11-23 18:35 | PC.NURSE ---
Shift Summary: Patient arrived to room from PACU @ 1437. V/S stable, BP elevated with pain, patient c/o feeling cold, randy hugger placed. Cryocuff intact, dressing over site dry and intact. Tolerating regular diet. Has not been up to void yet. Pain somewhat difficult to control, verbalized its more tolerable following oxycodone. Lung sounds clear, family at bedside.
--- NOTE | 2022-11-23 18:46 | PM.IMCN1 ---
Date of Consult Patient: [facility] Patient Consult date: 11/23/22 Requesting Physician: Orthopedics Primary Care Provider: Terry Hanson MD Consult Narrative Reason for consult: Narrative: HOSPITALIST CONSULT Hospital Day # 1 Post Op Day # 0 NAME OF OPERATION: Revision Right total knee arthroplasty SURGEON: Juanjose Martinez MD SENIOR CONTRACT SPECIALIST: Sharee Adhikari PA-C, VAMSI Lopez ANESTHESIA: Spinal ESTIMATED BLOOD LOSS: 0 mL COMPLICATIONS: None SPECIMENS: None DRAINS: None The hospital medicine team was asked by Orthopedic team to manage the patient's HTN, RA, neuropathy There have been no perioperative concerns or questions. I updated the [facility] histories and Medications and Allergies in the Expanse tabs REVIEW OF SYSTEMS: 12-point ROS completed with patient and negative unless otherwise stated in HPI or below. PHYSICAL EXAM: CODE STATUS: FULL CODE CONSTITUTIONAL: Conversive, good historian. A/O. Knows setting and context. VITAL SIGNS: see record. HEENT: Normocephalic, atraumatic. PERRL, EOMI, conjunctivae pink, no scleral icterus. Ears and nose externally normal. Pharynx normal. NECK: No JVD. No carotid bruit, no thyromegaly, no adenopathy. CHEST: Clear to auscultation bilaterally HEART: No harsh murmurs. S1/S2. ABDOMEN: Flat, soft, nontender. Normal bowel sounds. Moderately obese. EXTREMITIES: No edema. MUSCULOSKELETAL: right knee is wrapped. no obvious hematoma/seepage. icing. flexing at toes. NEURO: Cranial nerves intact. Normal affect. No gross deficits. Speech intelligible. SKIN: No rashes, petechiae, concerning changes PSYCHIATRIC: Euthymic. INVESTIGATIONS: EMR Reviewed DISPOSITION: MedSurg Recovery; Discharge tomorrow DVT: Agree with ortho plan for DVT prevention GI: PO intake [facility] Medical History (Updated 11/23/22 @ 18:50 by Erlinda Reeves MD) Edema ?R60.9 - Edema, unspecified (ICD-10) GERD (gastroesophageal reflux disease) ?K21.9 - Gastro-esophageal reflux disease without esophagitis (ICD-10) Hyperlipidemia (03/26/09) ?E78.5 - Hyperlipidemia, unspecified (ICD-10) Hypertension (03/26/09) ?I10 - Essential (primary) hypertension (ICD-10) Hypothyroidism (03/26/09) ?E03.9 - Hypothyroidism, unspecified (ICD-10) Normal coronary angiogram Postmenopausal (03/26/09) ?Z78.0 - Asymptomatic menopausal state (ICD-10) Restless legs syndrome ?G25.81 - Restless legs syndrome (ICD-10) Rheumatoid arthritis ?M06.9 - Rheumatoid arthritis, unspecified (ICD-10) Surgical History (Updated 11/23/22 @ 18:51 by Erlinda Reeves MD) H/O cataract extraction (~2013) ?Z98.49 - Cataract extraction status, unspecified eye (ICD-10) H/O foot surgery ?Z98.890 - Other specified postprocedural states (ICD-10) H/O hysterectomy with oophorectomy (1972) H/O lumpectomy ?Z98.890 - Other specified postprocedural states (ICD-10) History of appendectomy (04/21/10) ?Z90.49 - Acquired absence of other specified parts of digestive tract (ICD-10) History of revision of total knee arthroplasty (~10/19/21) ?Z96.659 - Presence of unspecified artificial knee joint (ICD-10) History of tonsillectomy (04/21/10) ?Z90.89 - Acquired absence of other organs (ICD-10) History of total left knee replacement (1999) ?Z96.652 - Presence of left artificial knee joint (ICD-10) History of total right knee replacement (1994) ?Z96.651 - Presence of right artificial knee joint (ICD-10) Status post revision of total replacement of right knee ?Z96.651 - Presence of right artificial knee joint (ICD-10) Family History (Updated 11/07/22 @ 12:42 by Pilar Vaughn RN) Brother Kidney disease High blood pressure Mother Stroke Father Myocardial infarction Sister Stroke High blood pressure Social History Smoking Status: Former smoker Do you use any of these nicotine containing products: None How often do you have a drink containing alcohol: 4 or more times a week Alcohol type: wine How many standard drinks containing alcohol do you have on a typical day: 1 or 2 How often do you have six or more drinks on one occasion: Never AUDIT-C Alcohol total score: 4 Non-prescribed substance use: denies use Caffeine: Yes (coffee, 1 cup/AM) Little interest or pleasure in doing things: several days Feeling down, depressed, or hopeless: several days Meds Home Medications and Allergies Home Medications Medication Instructions Recorded Confirmed Type cholecalciferol (vitamin D3) 50 50 mcg PO QDAY 07/24/22 11/23/22 History mcg (2,000 unit) capsule tramadol 50 mg tablet 50 mg PO DAILY 09/27/22 11/23/22 History allopurinol 100 mg tablet 200 mg PO QDAY 10/02/22 11/23/22 History Allergies Allergy/AdvReac Type Severity Reaction Status Date / Time propoxyphene Allergy Severe Weakness Verified 11/13/22 09:20 Exam Const: Vital Signs, click to edit/add: Vital Signs - 24 hr 11/23/22 09:16 11/23/22 09:41 11/23/22 09:45 Temperature 98.4 F Pulse Rate 67 65 71 Pulse Rate [Left P ulse Oximeter] Respiratory Rate 16 16 16 Blood Pressure 164/73 H 150/66 H 131/58 L Blood Pressure [Ri ght Arm] Pulse Oximetry 94 97 100 Oxygen Delivery Me thod Room Air Nasal Cannula Nasal Cannula Oxygen Flow Rate 3 3 11/23/22 09:50 11/23/22 09:55 11/23/22 10:00 Temperature Pulse Rate 61 58 L 53 L Pulse Rate [Left P ulse Oximeter] Respiratory Rate 16 16 14 Blood Pressure 115/51 L 101/51 L 95/46 L Blood Pressure [Ri ght Arm] Pulse Oximetry 99 98 93 Oxygen Delivery Me thod Nasal Cannula Nasal Cannula Nasal Cannula Oxygen Flow Rate 3 3 3 11/23/22 10:08 11/23/22 13:52 11/23/22 13:55 Temperature 95.2 F L Pulse Rate 54 L 49 L 48 L Pulse Rate [Left P ulse Oximeter] Respiratory Rate 16 12 12 Blood Pressure 92/47 L 135/106 H 101/48 L Blood Pressure [Ri ght Arm] Pulse Oximetry 93 92 94 Oxygen Delivery Me thod Nasal Cannula Nasal Cannula Nasal Cannula Oxygen Flow Rate 3 4 4 11/23/22 14:00 11/23/22 14:05 11/23/22 14:10 Temperature 96.7 F L Pulse Rate 44 L 45 L 43 L Pulse Rate [Left P ulse Oximeter] Respiratory Rate 12 12 12 Blood Pressure 116/55 L 105/65 103/72 Blood Pressure [Ri ght Arm] Pulse Oximetry 94 96 98 Oxygen Delivery Me thod Nasal Cannula Nasal Cannula Nasal Cannula Oxygen Flow Rate 4 4 4 11/23/22 14:15 11/23/22 14:20 11/23/22 14:30 Temperature 97.6 F Pulse Rate 43 L 43 L 47 L Pulse Rate [Left P ulse Oximeter] Respiratory Rate 12 12 12 Blood Pressure 120/53 L 118/48 L 118/67 Blood Pressure [Ri ght Arm] Pulse Oximetry 98 97 95 Oxygen Delivery Me thod Nasal Cannula Room Air Room Air Oxygen Flow Rate 4 11/23/22 16:59 11/23/22 14:37 11/23/22 14:45 Temperature 96 F L 96 F L Pulse Rate 57 L Pulse Rate [Left P ulse Oximeter] 56 L Respiratory Rate 18 20 Blood Pressure Blood Pressure [Ri ght Arm] 135/76 141/97 H Pulse Oximetry 91 91 Oxygen Delivery Me thod Room Air Room Air Oxygen Flow Rate 11/23/22 15:00 11/23/22 15:15 11/23/22 15:30 Temperature 97 F L 97.4 F L 97.5 F L Pulse Rate Pulse Rate [Left P ulse Oximeter] 55 L 53 L 54 L Respiratory Rate 20 20 18 Blood Pressure Blood Pressure [Ri ght Arm] 101/87 175/102 H 140/96 H Pulse Oximetry 93 95 90 Oxygen Delivery Me thod Room Air Room Air Room Air Oxygen Flow Rate 11/23/22 16:00 11/23/22 16:30 11/23/22 18:34 Temperature 96.9 F L 97.4 F L 97.5 F L Pulse Rate Pulse Rate [Left P ulse Oximeter] 62 62 63 Respiratory Rate 18 18 18 Blood Pressure Blood Pressure [Ri ght Arm] 140/96 H 131/97 H 139/66 Pulse Oximetry 91 95 97 Oxygen Delivery Me thod Room Air Nasal Cannula Room Air Oxygen Flow Rate 1 Assessment and Plan Assessment and plan (1) Status post revision of total replacement of right knee: Problem comment: -we will hold her hypertension meds judiciously. Routine postoperative care expected. I agree with DVT prophylaxis outlined by Orthopedics, aspirin 81 mg b.i.d. happy to follow the patient through to discharge. Status: Acute (2) Hypertension: Status: Acute (3) Rheumatoid arthritis: Status: Acute (4) Idiopathic peripheral neuropathy: Status: Acute
[2022-11-23] MEDS: ASPIRIN 81 MG TABLET EC PO (21:48)
[2022-11-23] MEDS: SENNOSIDES 1 TAB TABLET 2 TAB PO (21:49)
[2022-11-24] MEDS: CEFAZOLIN 1 GM in 0.9 % SODIUM CHLORIDE Mini-bag 100 ML IVPB ×2 (01:05→08:30)
[2022-11-24] MEDS: OXYCODONE 5 MG TABLET PO ×2 (04:16→08:30)
[2022-11-24] MEDS: ACETAMINOPHEN 500 MG TABLET 1000 MG PO (04:17)
[2022-11-24 04:30] VITALS: BP 154/76; PULSE 59; RESP 14; TEMP 36.6; O2SAT 99
--- NOTE | 2022-11-24 07:01 | PC.NURSE ---
Pt is alert and oriented x3. Afebrile. Pt reports 9/10 pain in right knee, pain managed with cryo cuff, PRN and scheduled medications. Pt denies SOB, Chest pain, and N/V. Pt?s right leg dressing is?CDI. Pt is voiding, tolerating a regular diet, up SBA with walker and gait belt.???
[2022-11-24 07:15] LABS: Basophils Percent Auto 0.1 % (0.0-3.0); Hematocrit 35.1 % (33.0-51.0); Hemoglobin* 11.5 gm/dL (12.0-16.0); Immature Granulocytes Pct Auto 0.2 %; Mean Corpuscular HGB Conc 33 gm/dL (32-36); Mean Corpuscular Hemoglobin 33 pg (26-34); Mean Corpuscular Volume 100 fL (80-100); Monocytes Percent Auto 3.7 % (0.0-11.0); Platelet Count* 144 K/uL (140-440); RDW Coefficient of Variation % 13.8 % (11.5-15.5); Red Blood Count 3.51 m/uL (4.00-5.20); White Blood Count* 12.03 K/uL (4.50-11.00)
[2022-11-24 07:28] LABS: Slide Review Reflex No
[2022-11-24 07:37] VITALS: O2SAT 94
[2022-11-24 07:47] LABS: Potassium* 5.3 mmol/L (3.6-5.1); Sodium* 136 mmol/L (135-149)
[2022-11-24 07:50] LABS: Blood Urea Nitrogen* 35 mg/dL (7-30); Est. Creatinine Clearance* 17.94; Estimated Glomerular Filt Rate 24 ml/min; INR 1.04 (0.91-1.10); Prothrombin Time 14.3 Seconds
[2022-11-24 08:00] VITALS: BP 137/64; PULSE 70; RESP 18; TEMP 36.1; O2SAT 94
--- NOTE | 2022-11-24 08:12 | PM.ORPN ---
Subjective Subjective Time Seen by Provider: 07:20 Date Seen: 11/24/22 Principal diagnosis: Status post revision right knee replacement Interval history: Princess is comfortable this morning. When she discharges to home her will assist her as well as her daughter. Ortho Exam Narrative Exam Narrative: Alert and oriented x3. Patient is in no acute distress. Converses without labored breathing. Hearing is grossly intact. Ambulates with a walker. Examination of the right lower extremity shows the dressing is intact. No erythema or drainage or sign of infection. Minimal effusion. Minimal soft tissue edema about the right knee. CMS intact right lower extremity. Quad strength 4+/5. Bilateral calves are soft and nontender. Const Vital Signs, click to edit/add: Vital Signs - 24 hr 11/23/22 09:16 11/23/22 09:41 11/23/22 09:45 Temperature 98.4 F Pulse Rate 67 65 71 Pulse Rate [Left Pulse Oximeter] Respiratory Rate 16 16 16 Blood Pressure 164/73 H 150/66 H 131/58 L Blood Pressure [Right Arm] Pulse Oximetry 94 97 100 Oxygen Delivery Method Room Air Nasal Cannula Nasal Cannula Oxygen Flow Rate 3 3 11/23/22 09:50 11/23/22 09:55 11/23/22 10:00 Temperature Pulse Rate 61 58 L 53 L Pulse Rate [Left Pulse Oximeter] Respiratory Rate 16 16 14 Blood Pressure 115/51 L 101/51 L 95/46 L Blood Pressure [Right Arm] Pulse Oximetry 99 98 93 Oxygen Delivery Method Nasal Cannula Nasal Cannula Nasal Cannula Oxygen Flow Rate 3 3 3 11/23/22 10:08 11/23/22 13:52 11/23/22 13:55 Temperature 95.2 F L Pulse Rate 54 L 49 L 48 L Pulse Rate [Left Pulse Oximeter] Respiratory Rate 16 12 12 Blood Pressure 92/47 L 135/106 H 101/48 L Blood Pressure [Right Arm] Pulse Oximetry 93 92 94 Oxygen Delivery Method Nasal Cannula Nasal Cannula Nasal Cannula Oxygen Flow Rate 3 4 4 11/23/22 14:00 11/23/22 14:05 11/23/22 14:10 Temperature 96.7 F L Pulse Rate 44 L 45 L 43 L Pulse Rate [Left Pulse Oximeter] Respiratory Rate 12 12 12 Blood Pressure 116/55 L 105/65 103/72 Blood Pressure [Right Arm] Pulse Oximetry 94 96 98 Oxygen Delivery Method Nasal Cannula Nasal Cannula Nasal Cannula Oxygen Flow Rate 4 4 4 11/23/22 14:15 11/23/22 14:20 11/23/22 14:30 Temperature 97.6 F Pulse Rate 43 L 43 L 47 L Pulse Rate [Left Pulse Oximeter] Respiratory Rate 12 12 12 Blood Pressure 120/53 L 118/48 L 118/67 Blood Pressure [Right Arm] Pulse Oximetry 98 97 95 Oxygen Delivery Method Nasal Cannula Room Air Room Air Oxygen Flow Rate 4 11/23/22 16:59 11/23/22 14:37 11/23/22 14:45 Temperature 96 F L 96 F L Pulse Rate 57 L Pulse Rate [Left Pulse Oximeter] 56 L Respiratory Rate 18 20 Blood Pressure Blood Pressure [Right Arm] 135/76 141/97 H Pulse Oximetry 91 91 Oxygen Delivery Method Room Air Room Air Oxygen Flow Rate 11/23/22 15:00 11/23/22 15:15 11/23/22 15:30 Temperature 97 F L 97.4 F L 97.5 F L Pulse Rate Pulse Rate [Left Pulse Oximeter] 55 L 53 L 54 L Respiratory Rate 20 20 18 Blood Pressure Blood Pressure [Right Arm] 101/87 175/102 H 140/96 H Pulse Oximetry 93 95 90 Oxygen Delivery Method Room Air Room Air Room Air Oxygen Flow Rate 11/23/22 16:00 11/23/22 16:30 11/23/22 18:34 Temperature 96.9 F L 97.4 F L 97.5 F L Pulse Rate Pulse Rate [Left Pulse Oximeter] 62 62 63 Respiratory Rate 18 18 18 Blood Pressure Blood Pressure [Right Arm] 140/96 H 131/97 H 139/66 Pulse Oximetry 91 95 97 Oxygen Delivery Method Room Air Nasal Cannula Room Air Oxygen Flow Rate 1 11/23/22 19:55 11/23/22 20:55 11/23/22 23:00 Temperature 97.8 F 97.8 F Pulse Rate Pulse Rate [Left Pulse Oximeter] 74 58 L Respiratory Rate 18 16 Blood Pressure Blood Pressure [Right Arm] 143/75 H 126/60 Pulse Oximetry 92 95 90 Oxygen Delivery Method Room Air Room Air Oxygen Flow Rate 11/23/22 23:00 11/24/22 04:30 Temperature 97.8 F 97.8 F Pulse Rate Pulse Rate [Left Pulse Oximeter] 57 L 59 L Respiratory Rate 14 14 Blood Pressure Blood Pressure [Right Arm] 148/77 H 154/76 H Pulse Oximetry 90 99 Oxygen Delivery Method Room Air Oxygen Flow Rate Assessment and Plan Assessment and plan (1) Status post revision of total replacement of right knee: Problem details: Date of surgery 11/24/2019 Status: Acute Assessment and Plan: Princess is doing well at this time. Her block is working well, even though she feels the block has worn off. She is comfortable in a recliner this morning. Plan for discharge is today to home if they meet discharge criteria. DVT prophylaxis includes aspirin 81 mg twice daily x1 month, Abisai stockings x1 month may remove for 1 hr per day, frequent ambulation Remove dressing in 1 week. Observe wound and phone Orthopedics with any questions or concerns Return to clinic in 1 week for a wound check Return to clinic in [address] Martinez Minimize narcotic use. Wean off and discontinue soon as possible. Activities as tolerated. No strenuous activity. Outpatient physical therapy as scheduled. Ice and elevate the operative extremity. No restriction on ice. (2) Hypertension: Status: Acute (3) Rheumatoid arthritis: Status: Acute (4) Idiopathic peripheral neuropathy: Status: Acute
[2022-11-24] MEDS: SENNOSIDES 1 TAB TABLET 2 TAB PO (08:30)
[2022-11-24] MEDS: ASPIRIN 81 MG TABLET EC PO (08:30)
[2022-11-24 10:13] VITALS: BP 118/67; PULSE 57; RESP 18; TEMP 36.1
--- NOTE | 2022-11-24 11:10 | PC.NURSE ---
Pt calm and cooperative during shift. Pt VSS. Pt's dressing is dry and intact. Pt had pain of 2 see EMAR for intervention. Pt discharged home with . Follow up surgery appointment made and Pt has PT scheduled for Monday 11/27. IV removed catheter intact.
--- NOTE | 2022-11-24 11:19 | PC.SOCIAL ---
Discharge Planning: Per Physical Therapy patient has good plan for discharge, no concerns. No social work needs at this time.
== END 2022-11-24 10:55 | disposition home or self-care (01) ==
LOC: OR 08:16 → MEDSURG 08:21
PROVIDERS: PCP Family Medicine; Visit Provider Orthopaedic Surgery
PROC: (CPT 27447; principal; 2022-11-23 09:45)
DX: T84.032A Mechanical loosening of internal right knee prosthetic joint, initial encounter (principal); T84.84XA Pain due to internal orthopedic prosthetic devices, implants and grafts, initial encounter; I10 Essential (primary) hypertension; M06.9 Rheumatoid arthritis, unspecified; G60.8 Other hereditary and idiopathic neuropathies; E78.5 Hyperlipidemia, unspecified; K21.9 Gastro-esophageal reflux disease without esophagitis
CPT/HCPCS: 27487; 01402; 36415; 64447; 64454; 73560; 76942; 82565; 84132; 84295; 84520; 85025; 85610; 97110; 97116; 97161; 97165; 99100; A9270; C1776; J0690; J1100; J1170; J2405; J2704; J2795; J7120

== ENCOUNTER 2023-02-23 14:59 | Outpatient (CLI) | payer MEDICARE, OTHER, SELFPAY ==
--- OUTSIDE RECORDS SUMMARY | 2023-02-23 15:03 | XMS_ITS | Continuity of Care Document ---
Author Name Unknown Organization [facility] Address [address] [place] [address] Phone Care Team Providers Care Camelid Fiber Sorter Name Role Phone Unavailable Unavailable Unavailable Allergies, Adverse Reactions, Alerts Substance Reaction Status Criticality PROPOXYPHENE HCL Active No Informat ion Medications Medication Instructions Dosage Effective Dates (start - stop) Status Comments ALLOPURINOL (unknown strength) Not Available - Active ATENOLOL (unknown strength) Not Available - Active ATORVASTATIN CALCIUM (unknown strength) Not Available - Active CHLORTHALIDONE (unknown strength) Not Available - Active LEVOTHYROXINE SODIUM (unknown strength) Not Available - Active LISINOPRIL (unknown strength) Not Available - Active AMLODIPINE BESYLATE (unknown strength) Not Available - Active VITAMIN D3 (unknown strength) Not Available - Active FOLIC ACID (unknown strength) Not Available - Active FUROSEMIDE (unknown strength) Not Available - Active METHOTREXATE (unknown strength) Not Available - Active PREDNISONE (unknown strength) Not Available - Active OMEPRAZOLE (unknown strength) Not Available - Active Procedures Procedure Date Office/Outpatient Visit,Est, Mod 2020 Office/Outpatient Visit,New, Mod 2020 Advance Directives Directive Yes / No Effective Date File Name No Information Encounters Encounter Description Practice Location Reason(s) For Visit Diagnoses Date Provider Providers Copied on Encounter [facility], [address], [place], [id number] , tel:[phone] [facility] No Information May-2 No Information Office/Outpat ient Visit,Est, Mod [facility], [address], [place], [id number] , [place] tel:[phone] [facility] Other idiopathic scoliosis, lumbar region Rafa Miller. [facility], [address], [address], [place], [place], [id number], [place]. tel:[phone] Referring Provider: Terry Grant, [facility] [address] [place], [address]. tel:[phone] Office/Outpat ient Visit,New, Mod [facility], [address], [facility] [place], [id number] , [place] tel:[phone] [facility] Spinal stenosis, lumbar region with neurogenic claudication Spondylolysi s, lumbar regionOther idiopathic scoliosis, lumbar region 1 No Information Referring Provider: Terry Grant, [facility] [address] [place], [address]. tel:[phone] Family History Family Member Type Diagnosis Age At Onset No Information Payers Payer name Insurance type Covered constitution party ID Authoriza tion(s) Medicare MB [id number] For Life/Retired Hunter [id number] Social History Type Description Quantity Date Captured Comments Sex Female Smoking Status No Information Chief Complaint And Reason For Visit No Information Reason For Referral Reason For Referral No Information Plan Of Treatment Date Type Action Status No Information History Of Present Illness Encounter Date Complaint History Of Prese nt Illness No Information Functional Status Date Functional Assessmen t No Information Instructions Date Instruction Additional Infor mation No Information Assessments Type Assessment Date No Information Patient Care Teams Name Effective Dates (start - stop) Status Members No Information
== END 2023-02-23 15:00 | disposition home or self-care (01) ==
PROVIDERS: PCP Family Medicine; Visit Provider Family Medicine
DX: R63.4 Abnormal weight loss (principal); R19.7 Diarrhea, unspecified; I10 Essential (primary) hypertension; E78.5 Hyperlipidemia, unspecified
CPT/HCPCS: 80053; 84443

== ENCOUNTER 2023-02-27 10:00 | Outpatient (CLI) | payer MEDICARE, OTHER, SELFPAY ==
--- OUTSIDE RECORDS SUMMARY | 2023-03-01 07:34 | XMS_ITS | Continuity of Care Document ---
Author Name Unknown Organization [facility] Address [address] [place] [address] Phone Care Team Providers Care Commodity Management Specialist Name Role Phone Unavailable Unavailable Unavailable Allergies, [...] Copied on Encounter [facility], [address], [place], [id number] , tel:[phone] [facility] No Information May-2 No Information Office/Outpat ient Visit,Est, Mod [facility], [address], [place], [id number] , [place] tel:[phone] [facility] Other idiopathic scoliosis, lumbar region Rafa Miller. [facility], [address], [address], [place], [place], [id number], [place]. tel:[phone] Referring Provider: Terry Grant, [facility] [address] [place], [address]. tel:[phone] Office/Outpat ient Visit,New, Mod [facility], [address], [facility] [place], [id number] , [place] tel:[phone] [facility] Spinal stenosis, lumbar region with neurogenic claudication Spondylolysi s, lumbar regionOther idiopathic scoliosis, lumbar region No Information Referring Provider: Terry Grant, [facility] [address] [place], [address]. tel:[phone] Family History Family Member Type Diagnosis Age At Onset No Information Payers Payer name Insurance type Covered libertarian ID Authoriza tion(s) Medicare MB [id number] For Life/Retired Hunter [id number] Social History Type Description Quantity Date Captured Comments Sex Female Smoking Status No Information Chief Complaint And Reason For Visit No Information Reason For Referral Reason For Referral No Information History Of Present Illness Encounter Date Complaint History Of Prese nt Illness No Information Functional Status Date Functional Assessmen t No Information Instructions Date Instruction Additional Infor mation No Information Assessments Type Assessment Date No Information Patient Care Teams Name Effective Dates (start - stop) Status Members No Information
== END 2023-02-27 10:01 | disposition home or self-care (01) ==
LOC: NFLDREF 03-01 07:32
PROVIDERS: PCP Family Medicine; Referring Provider Family Medicine; Visit Provider Family Medicine
DX: R19.7 Diarrhea, unspecified (principal)
CPT/HCPCS: 87045; 87046; 87427; 87505

== ENCOUNTER 2023-02-28 09:00 | Outpatient (CLI) | payer MEDICARE, OTHER, SELFPAY ==
--- OUTSIDE RECORDS SUMMARY | 2023-03-04 06:44 | XMS_ITS | Continuity of Care Document ---
Author Name Unknown Organization [facility] Address [address] [place] [address] Phone Care Team Providers Care Cad Draftsman Name Role Phone Unavailable Unavailable Unavailable Allergies, [...] Copied on Encounter [facility], [address], [place], [id number] , tel:[phone] [facility] No Information May-2 No Information Office/Outpat ient Visit,Est, Mod [facility], [address], [place], [id number] , [place] tel:[phone] [facility] Other idiopathic scoliosis, lumbar region Rafa Miller. [facility], [address], [address], [place], [place], [id number], [place]. tel:[phone] Referring Provider: Terry Grant, [facility] [address] [place], [address]. tel:[phone] Office/Outpat ient Visit,New, Mod [facility], [address], [facility] [place], [id number] , [place] tel:[phone] [facility] Spinal stenosis, lumbar region with neurogenic claudication Spondylolysi s, lumbar regionOther idiopathic scoliosis, lumbar region No Information Referring Provider: Terry Grant, [facility] [address] [place], [address]. tel:[phone] Family History Family Member Type Diagnosis Age At Onset No Information Payers Payer name Insurance type Covered republican ID Authoriza tion(s) Medicare MB [id number] For Life/Retired Hunter [id number] Social History Type Description Quantity Date Captured [...]
== END 2023-02-28 09:01 | disposition home or self-care (01) ==
LOC: NFLDREF 03-04 06:42
PROVIDERS: PCP Family Medicine; Referring Provider Family Medicine; Visit Provider Family Medicine
DX: R19.7 Diarrhea, unspecified (principal)
CPT/HCPCS: 87177; 87209

== ENCOUNTER 2023-03-01 09:00 | Outpatient (CLI) | payer MEDICARE, OTHER, SELFPAY ==
--- OUTSIDE RECORDS SUMMARY | 2023-03-02 11:32 | XMS_ITS | Continuity of Care Document ---
Author Name Unknown Organization [facility] Address [address] [place] [address] Phone Care Team Providers Care Candy Dipper Hand Name Role Phone Unavailable Unavailable Unavailable Allergies, [...] Copied on Encounter [facility], [address], [place], [id number] , tel:[phone] [facility] No Information May-2 No Information Office/Outpat ient Visit,Est, Mod [facility], [address], [place], [id number] , [place] tel:[phone] [facility] Other idiopathic scoliosis, lumbar region Rafa Miller. [facility], [address], [address], [place], [place], [id number], [place]. tel:[phone] Referring Provider: Terry Grant, [facility] [address] [place], [address]. tel:[phone] Office/Outpat ient Visit,New, Mod [facility], [address], [facility] [place], [id number] , [place] tel:[phone] [facility] Spinal stenosis, lumbar region with neurogenic claudication Spondylolysi s, lumbar regionOther idiopathic scoliosis, lumbar region No Information Referring Provider: Terry Grant, [facility] [address] [place], [address]. tel:[phone] Family History Family Member Type Diagnosis Age At Onset No Information Payers Payer name Insurance type Covered democrat ID Authoriza tion(s) Medicare MB [id number] For Life/Retired Hunter [id number] Social History Type Description Quantity Date Captured [...]
== END 2023-03-01 09:01 | disposition home or self-care (01) ==
LOC: NFLDREF 03-02 11:30
PROVIDERS: PCP Family Medicine; Referring Provider Family Medicine; Visit Provider Family Medicine
DX: R19.7 Diarrhea, unspecified (principal)
CPT/HCPCS: 87493

== ENCOUNTER 2023-03-20 06:39 | Outpatient (CLI) | payer MEDICARE, OTHER, SELFPAY ==
--- OUTSIDE RECORDS SUMMARY | 2023-03-20 06:44 | XMS_ITS | Continuity of Care Document ---
Author Name Unknown Organization [facility] Address [address] [place] [address] Phone Care Team Providers Care Senior Consulting Manager Name Role Phone Unavailable Unavailable Unavailable Allergies, [...] Copied on Encounter [facility], [address], [place], [id number] , tel:[phone] [facility] No Information May-2 No Information Office/Outpat ient Visit,Est, Mod [facility], [address], [place], [id number] , [place] tel:[phone] [facility] Other idiopathic scoliosis, lumbar region Rafa Miller. [facility], [address], [address], [place], [place], [id number], [place]. tel:[phone] Referring Provider: Terry Grant, [facility] [address] [place], [address]. tel:[phone] Office/Outpat ient Visit,New, Mod [facility], [address], [facility] [place], [id number] , [place] tel:[phone] [facility] Spinal stenosis, lumbar region with neurogenic claudication Spondylolysi s, lumbar regionOther idiopathic scoliosis, lumbar region No Information Referring Provider: Terry Grant, [facility] [address] [place], [address]. tel:[phone] Family History Family Member Type Diagnosis Age At Onset No Information Payers Payer name Insurance type Covered republican ID Authoriza tion(s) Medicare MB [id number] For Life/Retired Hunter [id number] Social History Type Description Quantity Date Captured [...]
--- NOTE | 2023-03-20 08:38 | W.ANESCHARGE ---
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
== END 2023-03-20 06:40 | disposition home or self-care (01) ==
LOC: OP CLINIC 06:42
PROVIDERS: PCP Family Medicine; Visit Provider Surgery
DX: R63.4 Abnormal weight loss (principal); K63.5 Polyp of colon; K57.30 Diverticulosis of large intestine without perforation or abscess without bleeding; K31.7 Polyp of stomach and duodenum; K44.9 Diaphragmatic hernia without obstruction or gangrene; R19.8 Other specified symptoms and signs involving the digestive system and abdomen
CPT/HCPCS: 43239; 45385; 811; 88305; 99100; J2371; J2704

== ENCOUNTER 2023-03-23 12:59 | Outpatient (CLI) | payer MEDICARE, OTHER, SELFPAY ==
--- NOTE | 2023-03-23 13:00 | CRLHL7_ITS ---
For Patients: As a result of the Century Cures Act, medical imaging exams and procedure reports are released immediately into your electronic medical record. You may view this report before your referring provider. If you have questions, please contact your health care provider. Indication: abnormal weight loss, change in bowel habit for 2 months Technique: Postcontrast CT abdomen and pelvis. 74 cc Isovue 370 intravenous contrast. Please note that all CT scans at this facility use dose modulation, iterative reconstruction, and/or weight-based dosing when appropriate to reduce radiation dose to as low as reasonably achievable. Comparison: 03/18/2020 Findings: Mild atelectasis is present within both lung bases. There is no free intraperitoneal air. Cardiomegaly. No intrahepatic mass. No stigmata of cirrhosis. Adrenal glands are normal. Spleen is unremarkable. Small incidental splenules are noted. The gallbladder is normal without wall thickening or calcified stones. No biliary obstruction. Fatty atrophy of the pancreas. The kidneys are normal. No hydronephrosis or solid mass. Hiatal hernia is present measuring 2.2 cm. Atherosclerotic changes in the aorta are present without aneurysm. The bladder is incompletely distended. No bladder stone. No pelvic soft tissue mass. Sigmoid diverticulosis. No acute inflammation. No bowel obstruction. Normal terminal ileum. No abscess or free fluid. No adenopathy. Curvature of the spine with multilevel severe degenerative disc disease. 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 No vertebral body compression fracture. Degenerative changes at the sacroiliac joints. Impression: Sigmoid diverticulosis. No diverticulitis. 2.2 cm hiatal hernia. No bowel obstruction or inflammatory changes. No adenopathy. Please note that all CT scans at this facility use dose modulation, iterative reconstruction, and/or weight-based dosing when appropriate to reduce radiation dose to as low as reasonably achievable. Dictated by Chandrakant Anton MD @ 03/26/2023 11:54:14 AM (Electronically Signed)
--- OUTSIDE RECORDS SUMMARY | 2023-03-23 13:01 | XMS_ITS | Continuity of Care Document ---
Author Name Unknown Organization [facility] Address [address] [place] [address] Phone Care Team Providers Care Commercial Energy Rater Name Role Phone Unavailable Unavailable Unavailable Allergies, [...] Copied on Encounter [facility], [address], [place], [id number] , tel:[phone] [facility] No Information May-2 No Information Office/Outpat ient Visit,Est, Mod [facility], [address], [place], [id number] , [place] tel:[phone] [facility] Other idiopathic scoliosis, lumbar region Rafa Miller. [facility], [address], [address], [place], [place], [id number], [place]. tel:[phone] Referring Provider: Terry Grant, [facility] [address] [place], [address]. tel:[phone] Office/Outpat ient Visit,New, Mod [facility], [address], [facility] [place], [id number] , [place] tel:[phone] [facility] Spinal stenosis, lumbar region with neurogenic claudication Spondylolysi s, lumbar regionOther idiopathic scoliosis, lumbar region No Information Referring Provider: Terry Grant, [facility] [address] [place], [address]. tel:[phone] Family History Family Member Type Diagnosis Age At Onset No Information Payers Payer name Insurance type Covered republican ID Authoriza tion(s) Medicare MB [id number] For Life/Retired Hunter [id number] Social History Type Description Quantity Date Captured [...]
== END 2023-03-23 13:00 | disposition home or self-care (01) ==
LOC: CT 12:59
PROVIDERS: PCP Family Medicine; Visit Provider Family Medicine
DX: R10.9 Unspecified abdominal pain (principal); K57.90 Diverticulosis of intestine, part unspecified, without perforation or abscess without bleeding; K44.9 Diaphragmatic hernia without obstruction or gangrene; R19.7 Diarrhea, unspecified; R63.4 Abnormal weight loss
CPT/HCPCS: 74177; Q9967

== ENCOUNTER 2023-05-10 11:38 | Outpatient (CLI) | payer MEDICARE, OTHER, SELFPAY ==
--- OUTSIDE RECORDS SUMMARY | 2023-05-10 11:40 | XMS_ITS | Continuity of Care Document ---
Author Name Unknown Organization [facility] Address [address] [place] [address] Phone Care Team Providers Care Interviewing Clerk Name Role Phone Unavailable Unavailable Unavailable Allergies, [...] Copied on Encounter [facility], [address], [place], [id number] , tel:[phone] [facility] No Information May-2 No Information Office/Outpat ient Visit,Est, Mod [facility], [address], [place], [id number] , [place] tel:[phone] [facility] Other idiopathic scoliosis, lumbar region Rafa Miller. [facility], [address], [address], [place], [place], [id number], [place]. tel:[phone] Referring Provider: Terry Grant, [facility] [address] [place], [address]. tel:[phone] Office/Outpat ient Visit,New, Mod [facility], [address], [facility] [place], [id number] , [place] tel:[phone] [facility] Spinal stenosis, lumbar region with neurogenic claudication Spondylolysi s, lumbar regionOther idiopathic scoliosis, lumbar region No Information Referring Provider: Terry Grant, [facility] [address] [place], [address]. tel:[phone] Family History Family Member Type Diagnosis Age At Onset No Information Payers Payer name Insurance type Covered green party ID Authoriza tion(s) Medicare MB [id number] For Life/Retired Hunter [id number] Social History Type Description Quantity Date Captured [...]
[2023-05-10 16:11] LABS: Lab Add On Test New Spec Needed
== END 2023-05-10 11:39 | disposition home or self-care (01) ==
PROVIDERS: PCP Family Medicine; Visit Provider Family Medicine
DX: E83.52 Hypercalcemia (principal); K52.9 Noninfective gastroenteritis and colitis, unspecified; R63.4 Abnormal weight loss; E78.5 Hyperlipidemia, unspecified; E03.9 Hypothyroidism, unspecified; I10 Essential (primary) hypertension; R19.7 Diarrhea, unspecified
CPT/HCPCS: 80048; 82784; 86364

== ENCOUNTER 2023-08-10 12:52 | Outpatient (CLI) | payer MEDICARE, OTHER, SELFPAY ==
--- OUTSIDE RECORDS SUMMARY | 2023-08-10 12:55 | XMS_ITS | Continuity of Care Document ---
Author Name Unknown Organization [facility] Address [address] [place] [address] Phone Care Team Providers Care Mat Roller Name Role Phone Unavailable Unavailable Unavailable Allergies, Adverse Reactions, Alerts Substance Reaction Status Criticality PROPOXYPHENE HCL Active No Informat ion Medications Medication Instructions Dosage Effective Dates (start - stop) Status Comments OMEPRAZOLE (unknown strength) Not Available - Active PREDNISONE (unknown strength) Not Available - Active METHOTREXATE (unknown strength) Not Available - Active FUROSEMIDE (unknown strength) Not Available - Active FOLIC ACID (unknown strength) Not Available - Active VITAMIN D3 (unknown strength) Not Available - Active AMLODIPINE BESYLATE (unknown strength) Not Available - Active LISINOPRIL (unknown strength) Not Available - Active LEVOTHYROXINE SODIUM (unknown strength) Not Available - Active CHLORTHALIDONE (unknown strength) Not Available - Active ATORVASTATIN CALCIUM (unknown strength) Not Available - Active ATENOLOL (unknown strength) Not Available - Active ALLOPURINOL (unknown strength) Not Available - Active Procedures Procedure Date Office/Outpatient Visit,Est, Mod 2020 Office/Outpatient Visit,New, Mod 2020 Advance Directives Directive Yes / No Effective Date File Name No Information Encounters Encounter Description Practice Location Reason(s) For Visit Diagnoses Date Provider Providers Copied on Encounter [facility], [address], [place], [id number] , tel:[phone] [facility] No Information May-2 No Information Office/Outpat ient Visit,Est, Mod [facility], [address], [place], [id number] , [place] tel:[phone] [facility] Other idiopathic scoliosis, lumbar region Rafa Miller. [facility], [address], [address], [place], [place], [id number], [place]. tel:[phone] Referring Provider: Terry Grant, [facility] [address] [place], [address]. tel:[phone] Office/Outpat ient Visit,New, Mod [facility], [address], [facility] [place], [id number] , [place] tel:[phone] [facility] Spinal stenosis, lumbar region with neurogenic claudication Spondylolysi s, lumbar regionOther idiopathic scoliosis, lumbar region No Information Referring Provider: Terry Grant, [facility] [address] [place], [address]. tel:[phone] Family History Family Member Type Diagnosis Age At Onset No Information Payers Payer name Insurance type Covered democrat ID Authoriza tion(s) Medicare MB [id number] For Life/Retired Hunter [id number] Social History Type Description Quantity Date Captured [...]
--- NOTE | 2023-08-10 13:00 | CRLHL7_ITS ---
For Patients: As a result of the Century Cures Act, medical imaging exams and procedure reports are released immediately into your electronic medical record. You may view this report before your referring provider. If you have questions, please contact your health care provider. BILATERAL SCREENING MAMMOGRAM WITH COMPUTER-AIDED DETECTION TECHNIQUE: CC and MLO views were obtained. These mammographic images have been obtained using full-field digital technique. These mammographic images were interpreted with the benefit of computer-aided detection. COMPARISON FILM: 08/31/20, 07/29/19, 07/01/18. FINDINGS: The breasts are heterogeneously dense, which may obscure small masses IMPRESSION: There is no radiographic evidence for malignancy. ASSESSMENT: BI-RADS Category 2: Benign RECOMMENDATION: Routine screening mammogram in 1 year. A lay language report of this examination will be provided to the patient. Chandrakant Anton M.D. Diagnostic Radiologist [email or web address]/haresh Transcribed: 4:43 p.leandra hutson/Dictated by: Chandrakant Anton MD @ 08/14/2023 8:30:00 AM (Electronically Signed)
== END 2023-08-10 12:53 | disposition home or self-care (01) ==
LOC: MAMMO 12:53
PROVIDERS: PCP Family Medicine; Visit Provider Family Medicine
DX: Z12.31 Encounter for screening mammogram for malignant neoplasm of breast (principal); R92.2 Inconclusive mammogram
CPT/HCPCS: 77067

== ENCOUNTER 2023-11-20 17:12 | Emergency (ER) | payer MEDICARE, OTHER, SELFPAY ==
[2023-11-20 17:17] VITALS: BP 121/53; PULSE 60; RESP 18; TEMP 37.1; O2SAT 97; BMI 25.4
--- OUTSIDE RECORDS SUMMARY | 2023-11-20 19:19 | XMS_ITS | Continuity of Care Document ---
Author Name Unknown Organization [facility] Address [address] [place] [address] Phone Care Team Providers Care Wall To Wall Carpet Installer Name Role Phone Unavailable Unavailable Unavailable Allergies, [...] Copied on Encounter [facility], [address], [place], [id number] , tel:[phone] [facility] No Information May-2 No Information Office/Outpat ient Visit,Est, Mod [facility], [address], [place], [id number] , [place] tel:[phone] [facility] Other idiopathic scoliosis, lumbar region Rafa Miller. [facility], [address], [address], [place], [place], [id number], [place]. tel:[phone] Referring Provider: Terry Grant, [facility] [address] [place], [address]. tel:[phone] Office/Outpat ient Visit,New, Mod [facility], [address], [facility] [place], [id number] , [place] tel:[phone] [facility] Spinal stenosis, lumbar region with neurogenic claudication Spondylolysi s, lumbar regionOther idiopathic scoliosis, lumbar region No Information Referring Provider: Terry Grant, [facility] [address] [place], [address]. tel:[phone] Family History Family Member Type Diagnosis Age At Onset No Information Payers Payer name Insurance type Covered constitution party ID Authoriza tion(s) Medicare MB [id number] For Life/Retired Hunter [id number] Social History Type Description Quantity Date Captured [...]
--- OUTSIDE RECORDS SUMMARY | 2023-11-20 19:20 | XMS_ITS | Clinical Summary ---
Author Name Unknown [facility] Address [address] [place] [address] Care Team Providers Care Telephone Service Representative Name Role Phone Clinician, Not Found MD Primary Care Provider Un available Source Comments You are receiving this document as you are listed as the primary care provider,follow-up provider, or the patient has been referred to you for consultation.This is in compliance with the Medicare and[place] Healthcare[employer]id EHR Incentive Program,which states Providers who transition their patient to another setting of careor provider of care or refers their patient to another provider of care shouldprovide summary care record for each transition of care or referral. [facility] Allergies Active Allergy Reactions Criticality Noted Date Comments Propoxyphene Other, see comments Medium 10/21/1999 Lethargy Sulindac Hives High 06/03/2003 Medications Medication Sig Dispensed Refills Start Date End Date Status lisinopril (AKA ZESTRIL) 40 MG tablet Take 1 tablet by mouth daily (every 24 hours). LW Addl Instr:Indicated for: High Blood Pressure 90 3 6 Active amLODIPine (NORVASC) 5 MG tablet 7 Active atorvastatin (LIPITOR) 40 MG tablet 7 Active omeprazole (PRILOSEC) 20 MG capsule Take 1 Capsule (20 mg) by mouth. 5 Active Cholecalciferol (VITAMIN D3) 2000 units Take 2,000 Units by mouth. 5 Active atenolol (TENORMIN) 25 MG tablet Take 1 Tablet (25 mg) by mouth. 5 Active chlorthalidone (HYGROTON) 25 MG tablet 1 Tablet (25 mg). 6 Active levothyroxine (SYNTHROID) 75 MCG tablet Take 1 Tablet (75 mcg) by mouth daily. 2 Active furosemide (LASIX) 20 MG tablet Take 1 Tablet (20 mg) by mouth as needed. 1 Active allopurinol (ZYLOPRIM) 100 MG tablet Take 200 mg/d (2 tabs) all in am. (New instruction as of 09/29/22) 180 Tablet 3 3 Active traMADol (ULTRAM) 50 MG tabletIndications:O steoarthritis of multiple joints, unspecified osteoarthritis type TAKE 1 TABLET BY MOUTH EVERY NIGHT AT BEDTIME NEEDED FOR JOINT PAIN 60 Tablet 4 Active traMADol (ULTRAM) 50 MG tabletIndications:O steoarthritis of multiple joints, unspecified osteoarthritis type TAKE 1 TABLET before bed time as needed for joint pain. 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 Renal insufficiency 10/01/2020 Hyperuricemia 09/10/2020 S/P total knee arthroplasty, bilateral 8 S/P appendectomy 03/29/2018 Restless legs syndrome (RLS) 03/29/2018 Chronic left shoulder pain 03/29/2018 Psoriatic arthritis 03/29/2018 Sensorineural hearing loss 02/22/2005 Overview: LW Onset: 16Lud04 ; Hearing Loss Sensorineural Undiagnosed cardiac murmurs 02/22/2005 Overview: LW Modifier: functional LW Onset: 20Qso56 ; Heart Murmur Right bundle branch block 02/22/2005 Overview: LW Onset: 19Gqo31 Obesity 05/04/2004 Overview: LW Onset: 41Vtb65 Essential hypertension 01/17/2003 Overview: Hypertension Hypothyroidism 01/17/2003 Overview: Hypothyroidism Acquired Osteoarthritis 01/17/2003 Overview: DJD Chronic kidney disease, stage 3b Encounters Date Type Department Care Team Description 11/13/2023 Refill [facility] [address] [place], [place] [address] Denise Davila MD Refill from Last 3 Months Immunizations Name Administration Dates Next Due Flu Vac Preserv Free (3+yrs) 04/21/2013, 04/28/2009,05/21/2006,2004,05/04/2004 Influenza IIV3 (Trivalent) F luzone Highdose, 65+ Yrs (74864) 06/15/2020,07/01/2019,05/27/2018,2017,05/30/2017,05/15/2016,04/28/2014 Influenza IIV4 (Quadrivalent ) Fluad, 65+ Yrs 06/05/2022 Influenza IIV4 (Quadrivalent ) Fluzone, 65+ Yrs 06/15/2020 Influenza, Unspecified Formulation 06/15,05/21/2006,08/10/2005,2003,06/05/2003,07/25/2002,08/08/2001 PCV13 (Prevnar) 05/04/2015 PPSV23 (Pneumovax) 02/19/2006 Pfizer Monovalent 12+ Purple Top 07/08/2021,03/08/2020,09/20/2020 Td 07/19/1998 Tdap 09/24/2019,03/26/2009 Zoster (Zostavax) 04/01/2009 Zoster RZV (Shingrix) 10/18/2018,08/09/2018 Social History Tobacco Use Types Packs/Day Years Used Date Smoking Tobacco: Never Smokeless Tobacco: Never Alcohol Use Standard Drinks/Week Comments Yes 0 (1 standard drink = 0.6 oz pur e alcohol) Sex and Gender Information Value Date Recorded Sex Assigned at Not on file Gender Identity Not on file Sexual Orientation Not on file Last Filed Vital Signs Vital Sign Reading Time Taken Comments Blood Pressure 130/58 04/24/2023 1:56 PM CDT Pulse 80 04/24/2023 1:56 PM CDT Temperature 35.9 ??C (96.6 ??F) 09/29/2022 9:47 AM CS T Respiratory Rate - - Oxygen Saturation - - Inhaled Oxygen Concentration - - Weight 66.2 kg (145 lb 14.4 oz) 04/24/2023 1:56 PM CDT Height 164.5 cm (5' 4.75) 03/29/2018 9:30 AM CD T Body Mass Index 24.47 03/29/2018 9:30 AM CDT Plan of Treatment Upcoming Encounters Date Type Department Care Team (Late st Contact Info) Description 04/25/2024 11:45 AM CDT Appointment [facility] [address] [place] [address] Denise Davila MD [address] [place] [address] Health Maintenance Due Date Last Done Comments Medicare Annual Wellness Visit 1940 Dexa 02/27/2005 COVID-19 Vaccine ( season) 2023 06/03/2022, 07/08/2021, 10/11/2020, Additional history exists Influenza (#1) 2023 06/05/2022, 05/14, 07/08/2021, Additional history exists DTaP/Tdap/Td (3 - Tdap) 09/24/2029 09/24/19, 03/26/2009, 07/19/1998 HepA Aged Out 11/20/2012, 10/17/2012 No lo nger eligible based on patient's age to complete this topic Pneumococcal 65+ Yrs Completed 05/04/2015, 02/20/20 06 Zoster/Shingles Completed 10/18/2018, 07/14, 07/01/2009, Additional history exists HepB Aged Out No longer eligi ble based on patient's age to complete this topic Hib Aged Out No longer eligi ble based on patient's age to complete this topic IPV (Polio) Aged Out No longer eligi ble based on patient's age to complete this topic MCV4 Aged Out No longer eligi ble based on patient's age to complete this topic Care Teams Telephone Service Representative Relationship Specialty Start Date End Date Clinician, Not Found, [place] [address] PCP - General 03/01/18
--- OUTSIDE RECORDS SUMMARY | 2023-11-20 19:20 | XMS_ITS | Clinical Summary ---
Author Name Unknown Organization [facility] Address [place], [place] [address] Care Team Providers Care Financial Services Agent Name Role Phone Tamera Newton MD Primary Care Provider + Allergies Active Allergy Reactions Criticality Noted Date Comments Propoxyphene Other - Describe In Comment Field Medium 10/21/1999 Lethargy Sulindac Hives High 06/03/2003 Medications Medication Sig Dispensed Refills Start Date End Date Status atenolol (TENORMIN) 25 mg tablet Take 1 tablet by mouth once daily. 0 01/19/2015 Active lisinopril (PRINIVIL; ZESTRIL) 40 mg tablet Take 1 tablet by mouth once daily. 0 01/19/2015 Active omeprazole (PRILOSEC) 20 mg Delayed-Release capsule Take 1 capsule by mouth once daily before a meal. 0 01/19/2015 Active cholecalciferol (VITAMIN D3) 2,000 unit capsule Take 2,000 units by mouth at bedtime. 0 01/19/2015 Active amLODIPine (NORVASC) 5 mg tablet Take 5 mg by mouth once daily. 08/09/2017 Active atorvastatin (LIPITOR) 40 mg tablet Take 40 mg by mouth at bedtime. 0 11/13/2018 Active chlorthalidone (HYGROTON) 25 mg tablet Take 1 tablet by mouth every morning. 0 11/13/2018 Active levothyroxine (SYNTHROID) 75 mcg tablet Take 1 Tablet by mouth before breakfast. 10/04/2021 Active furosemide (LASIX) 20 mg tablet Take 1 Tablet by mouth once daily if needed (edema). 07/28/2021 Active predniSONE (DELTASONE) 5 mg tablet Take 2.5 mg by mouth once daily. 10/03/2021 Active methotrexate (RHEUMATREX) 2.5 mg tablet Take 1 Tablet by mouth every Sunday. 06/28/2021 Active folic acid 1 mg tablet Take 1 Tablet by mouth once daily. 06/28/2021 Active allopurinoL (ZYLOPRIM) 100 mg tablet Take 250 mg by mouth once daily. Active acetaminophen (TYLENOL EXTRA STRGTH) 500 mg tablet Take 1,000 mg by mouth at bedtime. Max acetaminophen dose: 4000mg in 24 hrs. Active aspirin (ECOTRIN) 81 mg enteric coated tabletIndications: Status post revision of total replacement of left knee Take 1 Tablet (81 mg) by mouth 2 times daily with meals. 60 Tablet 10/19/2021 Active oxyCODONE (ROXICODONE) 5 mg immediate release tabletIndications: Status post revision of total replacement of left knee Take 1-2 Tablets (5-10 mg) by mouth every 4 hours if needed for Pain. 30 Tablet 10/19/2021 Active durable medical equipment (DME)Indications:U lcer of right foot with fat layer exposed (HC) [id number] Squared Toe Post OP Shoe, Small 1 Each 10/24/2023 Active honey (Manuka Honey) 100 % gelIndications:Ulc er of right foot with fat layer exposed (HC) Apply topically to affected area(s). 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 10/10/2021 Hypertension Hypothyroidism Hypercholesteremia HLD (hyperlipidemia) Neuropathy Rheumatoid arthritis RLS (restless legs syndrome) Encounters Date Type Department Care Team Description 11/14/2023 2:45 PM CDT Office Visit [facility] [address] [place] [address] Toney Winchester DPM Follow Up (Right ulcer , 3 week follow up) 11/14/2023 Travel 10/24/2023 11:00 AM CDT Office Visit [facility] [address] [place] [address] Toney Winchester DPM Consult (Right foot wound ) 10/24/2023 Travel from Last 3 Months Immunizations Name Administration Dates Next Due HepA-HepB (Twinrix) 11/20/2012,10/17/2012 Influenza Virus, Unspecified 06/15/2020, 06/15/2020,07/01/2019,2017,06/06/2012,06/27/2011,06/14/2010,1 ,05/21/2006,08/10/2005, 005,05/04/2004,05/04/2004,06/05/2003,,08/08/2001 Influenza, High-dose Inactivated 019,07/01/2019,05/27/2018,2017,05/30/2017,05/15/2016,04/28/2014 Influenza, High-dose Quadriv alent Inactivated 06/15/2020 Influenza, IIV3 (Age 6-35 mos) 04/21/2013,2008 Influenza, Inactivated AIIV4 (Age 65+ Years) Preserv Free 07/08/2021,06/15/2020 Pneumococcal Poly,23-Valent (Pneumovax) 02/19/2006 Pneumococcal conj 13-Valent (Prevnar 13) 05/04/2015 Td (Age >=7 Years) 07/19/1998 Tdap 09/24/2019,03/26/2009 Typhoid (injectable) 10/17/2012 Zoster (Shingrix-RZV, recombinant) 10/18/2018, Zoster (Zostavax-ZVL, live) 07/01/2009, 9 Family History Medical History Relation Name Comments Kidney cancer Brother two brother Heart failure Father CHF Stroke Mother Stroke Sister Relation Name Status Comments Brother Father Mother Sister Social History Tobacco Use Types Packs/Day Years Used Date Smoking Tobacco: Former Cigarettes Smokeless Tobacco: Never Tobacco Cessation:Counseling Given: Yes Alcohol Use Standard Drinks/Week Comments Yes 0 (1 standard drink = 0.6 oz pur e alcohol) 4-5 drinks per week Sex and Gender Information Value Date Recorded Sex Assigned at Not on file Gender Identity Not on file Sexual Orientation Not on file Obstetrics History Last Filed Vital Signs Vital Sign Reading Time Taken Comments Blood Pressure 156/71 11/14/2023 3:03 PM CDT Pulse 62 11/14/2023 3:03 PM CDT Temperature 36.8 ??C (98.2 ??F) 10/19/2021 12:[address] Respiratory Rate 16 10/19/2021 12:29 PM EXPENSE ANALYST Oxygen Saturation 99% 11/14/2023 3:03 PM CDT Inhaled Oxygen Concentration - - Weight 69.9 kg (154 lb) 10/24/2023 11:18 AM CDT Height 162.6 cm (5' 4) 10/18/2021 7:55 AM EXPENSE ANALYST Body Mass Index 26.43 10/18/2021 7:55 AM EXPENSE ANALYST Plan of Treatment Upcoming Encounters Date Type Department Care Team (Late st Contact Info) Description 11/28/2023 1:00 PM CDT Office Visit [facility] [address] [place] [address] Toney Winchester DPM [address] [place] [address] 12/12/2023 11:30 AM CDT Office Visit [facility] [address] [place] [address] Toney Winchester DPM [address] [place] [address] Health Maintenance Due Date Last Done Comments Depression screening for age 12+ 1952 BMI (ht and wt on same day) for age 18+ 02/27/1958 DEXA/DXA scan for age 65+ 02/27/2005 Medicare Wellness for age 65+ 02/27/2005 COVID-19 vaccine series ( season) 2023 06/03/2022, 07/08/2021, 10/11/2020, Additional history exists Influenza for age 65+ 04/13/2024 07/08/2021 , 06/15/2020, 06/15/2020, Additional history exists Tetanus booster 09/24/2029 09/24/2019, 03/13, 07/19/1998 Pneumococcal series for age 65+ Completed 5, 02/19/2006 Zoster (shingles) series for age 50+ Completed 10/18/2018, 08/09/2018, 07/01/2009, Additional history exists Tdap Completed 09/24/2019, 03/26/2009 Medical Devices Implanted Type Area Service Center Specialist Device Identifier Shelf Expiration Date Model / Serial / Lot Simplex P Bone Cement - Half Dose Implanted:Qty: 2 on 10/18/2021 by Kevin Hogue MD at [facility] Left: Knee [employer] 07/12/2023 / [id number] / [id number] Tri[employer]lon Femoral Posterior Augment Implanted:Qty: 1 on 10/18/2021 by Kevin oHgue MD at [facility] Left: Knee [employer] 06/01/2025 / [id number]-A-400 / [id number] Simplex P Bone Cement Full Dose Implanted:Qty: 2 on 10/18/2021 by Kevin Hogue MD at [facility] Left: Knee [employer] 09/12/2023 / [id number] / [id number] Triathlon Fluted Stem - Tibia Implanted:Qty: 1 on 10/18/2021 by Kevin Hogue MD at [facility] Left: Knee [employer] 10/09/2025 / [id number] / [id number] Tri[employer]lon Tritanium Tibial Symmetric Cone Augment Implanted:Qty: 1 on 10/18/2021 by Kevin Hogue MD at [facility] Left: Knee [employer] 05/04/2026 / [id number] / [id number] Triathlon Total Knee [place] Tibial Baseplate Implanted:Qty: 1 on 10/18/2021 by Kevin Hogue MD at [facility] Left: Knee [employer] 12/19/2025 / [id number]-B-[id number] / [id number] Triathlon Fluted Stem - Femur Implanted:Qty: 1 on 10/18/2021 by Kevin Hogue MD at [facility] Left: Knee [employer] 06/15/2025 / [id number] / [id number] [employer]athlon Total Stabilizer Femoral Component Implanted:Qty: 1 on 10/18/2021 by Kevin Hogue MD at [facility] Left: Knee [employer] 01/16/2026 / [id number]-[id number] / [id number] Triathlon X3 Total Stablizer+ Tibial Insert Implanted:Qty: 1 on 10/18/2021 by Kevin Hogue MD at [facility] Left: Knee [employer] 08/31/2026 / [id number] -[id number] / [id number] Triathlon Femoral Posterior Augment Implanted:Qty: 1 on 10/18/2021 by Kevin Hogue MD at [facility] Left: Knee [employer] 09/05/2025 / [id number]-A-[id number] / [id number] Advance Directives Documents on File Type Date Recorded Patient Technical System Analyst Expl anation Healthcare Directive 10/20/2021 8:51 AM * Full Code (Latest Code Status on File) Date Activated Date Inactivated Comments 10/18/2021 2:53 PM 10/19/2021 5:32 PM Question Answer Comments Code Status Discussion: Reviewed Preferences * Full Code Date Activated Date Inactivated Comments 10/18/2021 7:44 AM 10/18/2021 11:53 AM Question Answer Comments Code Status Discussion: Unable to Assess Preferences, Provider to review later Care Teams Financial Services Agent Relationship Specialty Start Date End Date Tamera Newton MD [address] [place] [address] PCP - General Family Practice 10/24/23
--- OUTSIDE RECORDS SUMMARY | 2023-11-20 19:20 | XMS_ITS | Encounter Summary ---
Author Name Unknown Organization [facility] Address [address] [place] [address] Care Team Providers Care Licensed Dispensing Optician Name Role Phone Clinician, Not Found MD Primary Care Provider Un available Reason for Visit * Reason Comments Refill Encounter Details Date Type Department Care Team (Late st Contact Info) Description 11/13/2023 Refill [facility] [address] [place], [place] [address] Denise Davila MD [address] [place], [place] [phone] Refill Social History Tobacco Use Types Packs/Day Years Used Date Smoking Tobacco: Never Smokeless Tobacco: Never Alcohol Use Standard Drinks/Week Comments Yes 0 (1 standard drink = 0.6 oz pur e alcohol) Sex and Gender Information Value Date Recorded Sex Assigned at Not on file Gender Identity Not on file Sexual Orientation Not on file documented as of this encounter Nursing Notes * Margarita Cameron RN - 11/13/2023 3:32 PM CDT LV: 04/24/23 NV: 04/25/24 Last filled 04/24/23 for #60 tabs. Unable to fill per refill protocol, routing to provider. documented in this encounter Plan of Treatment Upcoming Encounters Date Type Department Care Team (Late st Contact Info) Description 04/25/2024 11:45 AM CDT Appointment [facility] [address] [place] [address] Denise Davila MD [facility] [place] [address] documented as of this encounter Visit Diagnoses Diagnosis Osteoarthritis of multiple joints, unspecified osteoarthritis type documented in this encounter Care Teams Licensed Dispensing Optician Relationship Specialty Start Date End Date Clinician, Not Found, [place] [address] PCP - General 03/01/18 documented as of this encounter
== END 2023-11-20 19:29 | disposition home or self-care (01) ==
PROVIDERS: Emergency Provider Emergency Medicine; PCP Family Medicine
DX: Z53.21 Procedure and treatment not carried out due to patient leaving prior to being seen by health care provider (principal)

== ENCOUNTER 2023-11-30 09:44 | Outpatient (CLI) | payer MEDICARE, OTHER, SELFPAY | END 2023-11-30 09:45 | disposition home or self-care (01) | PROVIDERS: PCP Family Medicine; Visit Provider Family Medicine | DX: E03.9 Hypothyroidism, unspecified (principal); M35.3 Polymyalgia rheumatica; M25.511 Pain in right shoulder; M25.512 Pain in left shoulder | CPT/HCPCS: 80053; 82550; 84443; 84550; 86140; 87040 ==

== ENCOUNTER 2023-12-11 09:24 | Outpatient (CLI) | payer MEDICARE, OTHER, SELFPAY | END 2023-12-11 09:25 | disposition home or self-care (01) | PROVIDERS: PCP Family Medicine; Visit Provider Family Medicine | DX: E03.9 Hypothyroidism, unspecified (principal); M35.3 Polymyalgia rheumatica; R74.8 Abnormal levels of other serum enzymes | CPT/HCPCS: 80053; 82550; 84443; 86140 ==

== ENCOUNTER 2023-12-21 09:22 | Outpatient (CLI) | payer MEDICARE, OTHER, SELFPAY ==
--- OUTSIDE RECORDS SUMMARY | 2024-01-07 13:21 | XMS_ITS | Continuity of Care Document ---
Author Organization [facility] Address [address] [place] [address] Phone Care Team Providers Care Industrial Relations Officer Name Role Phone Unavailable Unavailable Unavailable Allergies, [...] Copied on Encounter [facility], [address], [place], [id number] , [place] tel:[phone] [facility] No Information May-2 No Information Office/Outpat ient Visit,Est, Mod [facility], [address], [place], [id number] , [place] tel:[phone] [facility] Other idiopathic scoliosis, lumbar region Rafa Miller. [facility], [address], [facility] [address], [place], [place], [id number], [place]. tel:[phone] Referring Provider: Terry Grant, [facility] [address] [place], [address]. tel:[phone] Office/Outpat ient Visit,New, Mod [facility], [address], [place], [place], [id number] , [place] tel:[phone] [facility] Spinal stenosis, lumbar region with neurogenic claudication Spondylolysi s, lumbar regionOther idiopathic scoliosis, lumbar region 1 No Information Referring Provider: Terry Grant, [facility] [address] [place], [address]. tel:[phone] Family History Family Member Type Diagnosis Age At Onset No Information Payers Payer name Insurance type Covered libertarian ID Authorzaydaa brigette(s) Medicare [id number] For Life/Retired Hunter [id number] Social History Type Description Quantity Date Captured [...]
--- OUTSIDE RECORDS SUMMARY | 2024-01-07 13:21 | XMS_ITS | Clinical Summary ---
Author Organization [facility] Address [address], [place] [address] Care Team Providers Care Head Miller Name Role Phone Clinician, Not Found MD Primary Care Provider Un available Source Comments You are receiving this document as you are listed as the primary care provider,follow-up provider, or the patient has been referred to you for consultation.This is in compliance with the Medicare and[facility] EHR Incentive Program,which states Providers who transition their patient to another setting of careor provider of care or refers their patient to another provider of care shouldprovide summary care record for each transition of care or referral. [facility] Allergies Active Allergy Reactions Criticality Noted Date [...] (12.5 mg) by mouth daily. 4 Active calcium [...] Units by mouth. 5 12/18/19 24 Discontinued predniSONE (DELTASONE) 20 MG tablet Take 1 Tablet (20 mg) by mouth daily. 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 Renal insufficiency 10/01/2020 Hyperuricemia 09/10/2020 S/P total knee arthroplasty, bilateral 8 S/P appendectomy 03/29/2018 Restless legs syndrome (RLS) 03/29/2018 Chronic left shoulder pain 03/29/2018 Psoriatic arthritis 03/29/2018 Sensorineural hearing loss 02/22/2005 Overview: LW Onset: [id number] ; Hearing Loss Sensorineural Undiagnosed cardiac murmurs 02/22/2005 Overview: LW Modifier: functional LW Onset: [id number] ; Heart Murmur Right bundle branch block 02/22/2005 Overview: LW Onset: [id number] Obesity 05/04/2004 Overview: LW Onset: [id number] Essential hypertension 01/17/2003 Overview: Hypertension Hypothyroidism 01/17/2003 Overview: Hypothyroidism Acquired Osteoarthritis 01/17/2003 Overview: DJD Chronic kidney disease, stage 3b Encounters Date Type Department Care Team Description 01/02/2024 Orders Only HIM DEPARTMENT ProviderErnie MD 12/27/2023 Notes/Orders [place] [address] [place] [address]. [place] [address] Denise Davila MD 12/20/2023 Notes/Orders [place] [address] [place] [address]. [place] [address] Denise Davila MD Arthralgia, unspecified joint (Primary Dx); PMR (polymyalgia rheumatica) (HRC) 12/19/[address] [place] [address] Denise Davila MD PHONE CALL TO PATIENT 12/18/2023 3:10 PM CDT Lab Visit [facility] [address] [place] [address] Arthralgia, unspecified joint 12/18/2023 2:30 PM CDT Office Visit [facility] [address] [place] [address] Denise Davila MD Chronic tophaceous gout (Primary Dx); Osteoarthritis of multiple joints, unspecified osteoarthritis type; Arthralgia, unspecified joint 11/13/2023 [place] [id number] Denise Davila MD Refill from Last 3 Months Immunizations Name Administration Dates Next Due Flu Vac Preserv Free (3+yrs) 04/21/2013, 04/28/2009,05/21/2006,2004,05/04/2004 Influenza IIV3 (Trivalent) F luzone Highdose, 65+ Yrs (18[address]) 06/15/2020,07/01/2019,05/27/2018,2017,05/30/2017,05/15/2016,04/28/2014 Influenza IIV4 (Quadrivalent ) Fluad, 65+ [...] Info) Description 01/15/2024 2:30 PM CDT Appointment [facility] [address] [place] [address] [place] [address] [place] [address] 04/25/2024 11:45 AM CDT Appointment [facility] [id number] [place] [address] Denise Davila MD [address] [place], [place] [address] Health Maintenance Due Date Last Done Comments [...] Procedure Name Priority Date/Time Associated Diagnosis Comments LABORATORY REPORT 01/02/2024 EXT RSLT - SCANNED Routine 12/21/2023 9: 22 AM CDT EXT RSLT - ALT Routine 12/21/2023 9:22 AM CDT EXT RSLT - AST Routine 12/21/2023 9:22 AM CDT EXT RSLT - CREATININE Routine 12/21/2023 9:22 AM CDT EXT RSLT - SEDIMENTATION RATE Routine 12/21/2023 9:22 AM CDT CK, TOTAL Routine 12/18/2023 3:21 PM CDT [...] joint from Last 3 Months Results * LABORATORY REPORT (01/02/2024) Interface Provider MD DAUGHERTY/OTHER/AR * Sedimentation Rate (Ext Rslt) (12/21/2023 9:22 AM CDT) EXT RSLT - SED RATE (ESR) 18 1 - 20 mm/hr PN EXTERNAL LAB-SEE SCANNED DOCUMENT 12/21/2023 9:22 AM CDT Denise Davila MD LAB EXTERNAL R ESULT Performing Organization Address City/[facility] Co de Phone Number PN EXTERNAL LAB-SEE SCANNED DOCUMENT Do Not Mail * Creatinine (Ext Rslt) (12/21/2023 9:22 AM CDT) EXT RSLT - CREATININE 1.4 0.5 - 1.5 mg/dL PN EXTERNAL LAB-SEE SCANNED DOCUMENT 12/21/2023 9:22 AM CDT Denise Davila MD LAB EXTERNAL R ESULT Performing Organization Address City/[facility] de Phone Number PN EXTERNAL LAB-SEE SCANNED DOCUMENT Do Not Mail * Scanned result (Ext Rslt) (12/21/2023 9:22 AM CDT) Pathologist [facility] Ext Rslt - Scanned CRP PN EXTERNAL LAB-SEE SCANNED DOCUMENT 12/21/2023 9:22 AM CDT Denise Davila MD LAB EXTERNAL R ESULT Performing Organization Address [facility] Co de Phone Number PN EXTERNAL LAB-SEE SCANNED DOCUMENT Do Not Mail * (ABNORMAL) AST (Ext Rslt) (12/21/2023 9:22 AM CDT) Pathologist [facility] EST RSLT - AST 181(H) 12 - 35 U/L PN EXTERNAL LAB-SEE SCANNED DOCUMENT 12/21/2023 9:22 AM CDT Denise Davila MD LAB EXTERNAL R ESULT Performing Organization Address City/[facility] Co de Phone Number PN EXTERNAL LAB-SEE SCANNED DOCUMENT Do Not Mail * (ABNORMAL) ALT (Ext Rslt) (12/21/2023 9:22 AM CDT) EXT RSLT - ALT 192(H) 4 - 35 U/L PN E XTERNAL LAB-SEE SCANNED DOCUMENT 12/21/2023 9:22 AM CDT Denise Davila MD LAB EXTERNAL R ESULT PN EXTERNAL LAB-SEE SCANNED DOCUMENT Do Not Mail * CCP Antibody (12/18/2023 3:21 PM CDT) Pathologist [facility] Anti-CCP Antibody 0.5 0.0 - 6.9 U/mL 12/19/2023 1:00 PM CDT [facility] Anti-CCP Antibody Interpretation Negative Negative 12/19/2023 1:00 PM CDT [facility] Blood Venipuncture / Unknown 12/18/2023 3:21 PM CDT 12/18/2023 3:21 PM CDT Narrative [facility] - 12/19/2023 1:00 PM CDT This result was obtained with the [employer]. Quantitative results cannot be directly compared to other manufacturers' methods. Denise Davila MD LAB_1 Performing Organization Address [facility] Co de Phone Number [facility] [address] * (ABNORMAL) Protein ELP (Serum) (12/18/2023 3:21 PM CDT) Pathologist [facility] Total Protein 6.9 6.4 - 8.3 g/dL 12/20/2023 10:36 AM CDT [facility] Albumin 4.3 3.4 - 4.8 g/dL 12/20/2023 10:36 AM CDT [facility] Alpha 1 0.4 0.2 - 0.5 g/dL 12/20/2023 10:36 AM CDT [facility] Alpha 2 0.9 0.5 - 1.1 g/dL 12/20/2023 10:36 AM CDT [facility] Beta 0.7 0.6 - 1.1 g/dL 12/20/2023 10:36 AM CDT [facility] Gamma 0.6(L) 0.7 - 1.6 g/dL 12/20/2023 10:36 AM CDT [facility] Monoclonal Vahid 0.0 <=0.0 g/dL 12/20/2023 10:36 AM CDT [facility] Interpretation Borderline hypogammaglobuli nemia. Consider urine immunofixation to rule out Bence Orozco proteinuria. 12/20/2023 10:36 AM CDT [facility] Signed Out By [facility] 12/20/2023 10:36 AM CDT [facility] Blood Venipuncture / Unknown 12/18/2023 3:21 PM CDT 12/18/2023 3:21 PM CDT Denise Davila MD LAB_1 Performing Organization Address City/[facility]/ZIP Co de Phone Number [facility] [address] * Rheumatoid Factor, Quant (12/18/2023 3:21 PM CDT) Pathologist [facility] Rheumatoid Factor, Quantitative <15 <=30 IU/mL 12/18/2023 9:03 PM CDT [facility] Blood Venipuncture / Unknown 12/18/2023 3:21 PM CDT 12/18/2023 3:21 PM CDT Denise Davila MD LAB_1 [facility] [address] * (ABNORMAL) C-Reactive Protein (12/18/2023 3:21 PM CDT) Pathologist [facility] C-Reactive Protein 1.4(H) 0.0 - 0.5 mg/dL 12/18/2023 5:10 PM CDT [facility] Blood Venipuncture / Unknown 12/18/2023 3:21 PM CDT 12/18/2023 3:21 PM CDT Denise Daivla MD LAB_1 Performing Organization Address [facility] de Phone Number [facility] [address] [place] [address] * CK, Total (12/18/2023 3:21 PM CDT) CK, Total 65 29 - 168 U/L 12/20/2023 10:13 AM CDT [facility] Blood Venipuncture / Unknown 12/18/2023 3:21 PM CDT 12/18/2023 3:21 PM CDT Denise Davila MD LAB_1 Performing Organization Address [facility] de Phone Number [facility] [address] * Sedimentation Rate (ESR) (12/18/2023 3:21 PM CDT) Sedimentation Rate 12 0 - 20 mm/hr 12/18/2023 3:55 PM CDT [facility] Blood Venipuncture / Unknown 12/18/2023 3:21 PM CDT 12/18/2023 3:21 PM CDT Denise Davila MD LAB_1 Performing Organization Address [facility] de Phone Number [facility] [address] [place] [address] from Last 3 Months Care Teams Head Miller Relationship Specialty Start Date End Date Clinician, Not Found, [place] [address] PCP - General 03/01/18
--- OUTSIDE RECORDS SUMMARY | 2024-01-07 13:21 | XMS_ITS | Continuity of Care Document ---
Author Organization [facility] Address [address] [address] [place] [address] Phone Care Team Providers Care Reconnaissance Crewmember Name Role Phone Palomo GAYLE, Oswald Unavailable Unavailable Allergies, Adverse Reactions, Alerts Substance Reaction Status Criticality No Known Allergies Active No Inform ation PROPOXYPHENE HCL Weakness Active No Informat ion Medications Medication Instructions Dosage Effective Dates (start - stop) Status Comments omeprazole 20 mg capsule,delayed release take 1 capsule by oral route every day 30 minutes to 1 hour before a meal 20 MG - Active allopurinol 200 mg tablet take 1 tablet by oral route every day 200 MG - Active amlodipine 5 mg tablet take 1 tablet by oral route every day 5 MG - Active atenolol 25 mg tablet take 1 tablet by o ral route every day 25 MG - Active atorvastatin 40 mg tablet take 1 tablet by oral route every day 40 MG - Active chlorthalidone 25 mg tablet take 1 tablet by oral route every day 25 MG - Active furosemide 20 mg tablet take 1 tablet by oral route every day 20 MG - Active levothyroxine 75 mcg capsule take 1 capsule by oral route every day 75 MCG - Active lisinopril 40 mg tablet take 1 tablet by oral route every day 40 MG - Active Cholestyramine Light 4 gram oral powder take 1 scoop by oral route 2 times every day dissolved in 2 to 6 ounces of water or noncarbonated beverage before meals 4 G - Active Procedures Procedure Date Sigmoidoscopy Flex; W/bx 1/mx 3 Level Iv-surg Path Gross/micro Offic/outpt E&m [facility] Advance Directives Directive Yes / No Effective Date File Name Resuscitation Not Answered N/A N/A Life Support Not Answered N/A N/A Intubation Not Answered N/A N/A Antibiotics Not Answered N/A N/A IV Fluid Support Not Answered N/A N/A Tube Feed Not Answered N/A N/A Other Directive N/A N/A WARNING:The information contained in this section is historical and is provided for information only and does not constitute a legal document or any assurance that the information is still accurate. Please verify the information with the simmons of the legal document before using it for clinical purposes. Encounters Encounter Description Practice Location Reason(s) For Visit Diagnoses Date Provider Providers Copied on Encounter [facility] [address] [address], [place], [id number], [place] tel:[phone] [facility] GI Symptoms or Concerns (chief complaint) Other fecal abnormalitiesDivert iculosis of colon without diverticulitisHemor rhoids, externalDiarrhea, unspecifiedLymphocy tic colitisDiarrhea, unspecifiedResidual hemorrhoidal skin tagsDvrtclos of lg int w/o perforation or abscess w/o bleeding 3 Palomo Akers. [address] [facility], [facility] [place], [id number] , [place]. tel: [phone] Referring Provider: Referral Self, USE FOR SELF REFERRALS. [facility], [address] [address], [place], [id number], [place] tel:[phone] [facility] Loose stools 3 Reid Manzo. [address] [facility], [address], [place], [id number] , [place]. [phone] Offic/outpt E&m [facility], [address] [address], [place], [id number], [place] tel:[phone] [place] [address] GI Symptoms or Concerns (chief complaint) Loose stoolsWeight loss, unintentional May- 3 Reid Manzo. [address] [facility], [address], [place], [place], [id number] , [place]. tel:[phone] Referring Provider: Tamera Newton MD, [address] [place], [address]. tel:[phone] [facility], [address] [address], [place], [place], [id number], [place] tel:[phone] [facility] No Information Apr- 3 Bradly Matos. [address] [facility], [address], [place], [place], [id number] , [place]. tel:[phone] Family History Family Member Type Diagnosis Age At Onset Brother Problem (finding) Cancer, kidney Immunizations Vaccine Date Status Comments influenza, high-dose seasona l, quadrivalent, 0.7mL dose, preservative free administered Note: [facility] bi-direct ional interface ; Source: Other Registry influenza, seasonal vaccine, quadrivalent, adjuvanted, 0.5mL dose, preservative free administered Note: [facility] bi-di rectional interface ; Source: Other Registry SARS-COV-2 (COVID-19) vaccin e, mRNA, spike protein, LNP, bivalent, preservative free, 30 mcg/0.3 mL dose, alvino-sucrose formulation administered Note: [facility] bi-direct ional interface ; Source: Other Registry influenza, high-dose seasona l, quadrivalent, 0.7mL dose, preservative free administered Note: [facility] bi-direct ional interface ; Source: Other Registry influenza, seasonal vaccine, quadrivalent, adjuvanted, 0.5mL dose, preservative free administered Note: [facility] bi-di rectional interface ; Source: Other Registry SARS-COV-2 (COVID-19) vaccin e, mRNA, spike protein, LNP, preservative free, 30 mcg/0.3mL dose administered Note: [facility] bi-direct ional interface ; Source: Other Registry SARS-COV-2 (COVID-19) vaccin e, mRNA, spike protein, LNP, preservative free, 30 mcg/0.3mL dose administered Note: [facility] bi-direct ional interface ; Source: Other Registry SARS-COV-2 (COVID-19) vaccin e, mRNA, spike protein, LNP, preservative free, 30 mcg/0.3mL dose administered Note: [facility] bi-direct ional interface ; Source: Other Registry influenza, high-dose seasona l, quadrivalent, 0.7mL dose, preservative free administered Note: [facility] bi-direct ional interface ; Source: Other Registry tetanus toxoid, reduced diphtheria toxoid, and acellular pertussis vaccine, adsorbed administered Note: [facility] b i-directional interface ; Source: Other Registry influenza, high dose seasona l, preservative-free administered Note: [facility] bi-direct ional interface ; Source: Other Registry influenza, high dose seasona l, preservative-free administered Note: [facility] bi-direct ional interface ; Source: Other Registry zoster vaccine recombinant administered N ote: [facility] bi-directional interface ; Source: Other Registry zoster vaccine recombinant administered N ote: [facility] bi-directional interface ; Source: Other Registry influenza, high dose seasona l, preservative-free administered Note: [facility] bi-direct ional interface ; Source: Other Registry influenza, high dose seasona l, preservative-free administered Note: [facility] bi-direct ional interface ; Source: Other Registry influenza, high dose seasona l, preservative-free administered Note: [facility] bi-direct ional interface ; Source: Other Registry influenza, high dose seasona l, preservative-free administered Note: [facility] bi-direct ional interface ; Source: Other Registry Prevnar 13 administered Note: [facility] bi-d irectional interface ; Source: Other Registry influenza, high dose seasona l, preservative-free administered Note: [facility] bi-direct ional interface ; Source: Other Registry Influenza, seasonal, injecta ble, preservative free administered Note: [facility] bi-direct ional interface ; Source: Other Registry Influenza, seasonal, injecta ble, preservative free administered Note: [facility] bi-direct ional interface ; Source: Other Registry zoster vaccine, live administered Note: [facility] bi-directional interface ; Source: Other Registry tetanus toxoid, reduced diphtheria toxoid, and acellular pertussis vaccine, adsorbed administered Note: [facility] b i-directional interface ; Source: Other Registry influenza virus vaccine, unspecified formulation administered Note: [facility] bi-di rectional interface ; Source: Other Registry Pneumovax 23 administered Note: [facility] bi-d irectional interface ; Source: Other Registry influenza virus vaccine, unspecified formulation administered Note: [facility] bi-di rectional interface ; Source: Other Registry influenza virus vaccine, unspecified formulation administered Note: [facility] bi-di rectional interface ; Source: Other Registry influenza virus vaccine, unspecified formulation administered Note: [facility] bi-di rectional interface ; Source: Other Registry Payers Payer name Insurance type Covered libertarian ID Authoriza tion(s) Medicare NGS MB [id number] [facility] [id number] Social History Type Description Quantity Date Captured Comments Alcohol Use Details Unknown Caffeine Use Details Unknown Tobacco Use Status undefined Smoking Status Former smoker Sex Female Vital Signs Date / Time: Height Weight BMI Pulse Rate Blood Pressure Temperature Respiratory Rate Body Surface Area Head Circumference Head Circ. Percentile Wt./Telly. Percentile BMI percentile Pulse Ox Inhaled Ox 64.00 in 66.210 kg (146.00 lbs) 25.1 0 kg/m eter (2) 68 /min 140/65 mm[Hg] 0.00 F 16 /min 98 % 2:21 PM 72 /min 147/65 mm[Hg] 18 /min 95 % 2:26 PM 85 /min 182/74 mm[Hg] 18 /min 97 % 2:30 PM 76 /min 159/70 mm[Hg] 16 /min 96 % 2:36 PM 75 /min 166/69 mm[Hg] 18 /min 93 % Chief Complaint And Reason For Visit From encounter dated '07/18/2023 14:00'. GI Symptoms or Concerns (chief complaint) Reason For Referral Reason For Referral No Information History Of Present Illness Encounter Date Complaint History Of Prese nt Illness GI Symptoms or Concerns GI Symptoms or Concerns Abimbola shah s a pleasant 83-year-old female who presents for evaluation of diarrhea. We were asked to see the patient in consultation by Tamera Newton MD. Records reviewed for this visit include clinic visit notes, lab work, stool studies, CT scan report, colonoscopy and EGD report. Patient has been experiencing diarrhea since late January 2023. She is having multiple loose stools daily. She will have 3-6 stools a day. Stools are watery, yellow, and mucous like. She has not had a formed stool since earlier this year. Has no associated abdominal pain. Has had some fecal accidents. Will sometimes notice bowel leakage when she urinates. She has not been eating as much as she usually does due to not wanting to have an accident. She tried Imodium but felt it didn't help. Prior to this, she would have regular bowel movements. Denies fever, chills, hematemesis, hematochezia, melena, nausea, or vomiting. She has had a significant weight loss of 50 lbs since September. She states she typically weights 195 lbs and today she weighs 145 lbs. Past medical history significant for GERD well-controlled on omeprazole, rheumatoid arthritis, hyperlipidemia, hypothyroidism, hypertension. Patient has history of total hysterectomy in appendectomy. No other abdominal surgeries.No family history of any GI conditions including IBD, celiac disease, colon cancer.She does not use NSAIDs regularly. Patient is a nonsmoker. She drinks approximately 3 alcoholic drinks a week. 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 Workup thus far has been unrevealing for cause of her diarrhea. Enteric stool pathogen panel, C dif and O&P were negative. CBC completed 02/23/2023 was normal with a hemoglobin of 12.3. CMP was normal. Negative celiac serologies. EGD completed 03/20/2023 revealed a hyperplastic polyp in the stomach that was negative for dysplasia or malignancy. H pylori biopsies were negative. Recommend another EGD in 1-2 years due to large polyp.Colonoscopy completed 03/20/2023 revealed diverticulosis throughout entire colon and multiple polyps which were negative for high-grade dysplasia and otherwise unremarkable. No random biopsies taken.CT Abdomen and Pelvis completed 03/23/2023 showed sigmoid diverticulosis with no diverticulitis, no bowel obstruction or inflammatory changes, no adenopathy. Functional Status Date Functional Assessmen t No Information Instructions Date Instruction Additional Infor mation Diverticulosis/Diverticulitis Re lated to Diverticulosis of colon without diverticulitis Colon Cancer Prevention Related to Diverticulosis of colon without diverticulitis Hemorrhoids Related to Diver ticulosis of colon without diverticulitis Assessments Type Assessment Date assessment Other fecal abnormalities assessment Diverticulosis of colon without diverticulitis assessment Hemorrhoids, external 3 Patient Care Teams Name Effective Dates (start - stop) Status Members No Information
--- OUTSIDE RECORDS SUMMARY | 2024-01-07 13:22 | XMS_ITS | Encounter Summary ---
Author Organization [facility] Address [address], [place] [address] Care Team Providers Care Supervisor Spinning Name Role Phone Clinician, Not Found MD Primary Care Provider Un available Encounter Details Date Type Department Care Team (Late st Contact Info) Description 12/18/2023 3:10 PM CDT Lab Visit [facility] [id number] [place] [address] [id number] Arthralgia, unspecified joint Social History Tobacco Use [...] Info) Description 01/15/2024 2:30 PM CDT Appointment [facility] [address] [place] [address] Denise Davila MD [address] [facility] [place] [phone] 04/25/2024 11:45 AM CDT Appointment [facility] [address] [place] [address] Denise Davila MD 0 [place], [place] [phone] documented as of this encounter Procedures Procedure [...] CK, Total (12/18/2023 3:21 PM CDT) Pathologist [facility] CK, Total 65 29 - 168 U/L 12/20/2023 10:13 AM CDT [facility] Blood Venipuncture / Unknown 12/18/2023 3:21 PM CDT 12/18/2023 3:21 PM CDT Denise Davila MD LAB_1 [facility] [address] * CCP Antibody (12/18/2023 3:21 PM CDT) Pathologist [facility] Anti-CCP Antibody 0.5 0.0 - 6.9 U/mL 12/19/2023 1:00 PM CDT [facility] Anti-CCP Antibody Interpretation Negative Negative 12/19/2023 1:00 PM CDT [facility] Blood Venipuncture / Unknown 12/18/2023 3:21 PM CDT 12/18/2023 3:21 PM CDT Narrative [facility] - 12/19/2023 1:00 PM CDT This result was obtained with the Phadia 250. Quantitative results cannot be directly compared to other manufacturers' methods. Denise Davila MD LAB_1 [facility] [address] * Rheumatoid Factor, Quant (12/18/2023 3:21 PM CDT) Rheumatoid Factor, Quantitative <15 <=30 IU/mL 12/18/2023 9:03 PM CDT [facility] Blood Venipuncture / Unknown 12/18/2023 3:21 PM CDT 12/18/2023 3:21 PM CDT Denise Davila MD LAB_1 Performing Organization Address [facility]/ZIP Co de Phone Number [facility] [address] * Sedimentation Rate (ESR) (12/18/2023 3:21 PM CDT) [facility] Sedimentation Rate 12 0 - 20 mm/hr 12/18/2023 3:55 PM CDT [facility] Blood Venipuncture / Unknown 12/18/2023 3:21 PM CDT 12/18/2023 3:21 PM CDT Denise Davila MD LAB_1 [facility] [address] [place] [address] * (ABNORMAL) C-Reactive Protein (12/18/2023 3:21 PM CDT) Pathologist [facility] C-Reactive Protein 1.4(H) 0.0 - 0.5 mg/dL 12/18/2023 5:10 PM T [facility] Blood Venipuncture / Unknown 12/18/2023 3:21 PM CDT 12/18/2023 3:21 PM CDT Denise Davila MD LAB_1 [facility] [address] [place] [address] * (ABNORMAL) Protein ELP (Serum) (12/18/2023 3:21 PM CDT) Total Protein 6.9 6.4 - 8.3 g/dL 12/20/2023 10:36 AM T [facility] Albumin 4.3 3.4 - 4.8 g/dL 12/20/2023 10:36 AM [facility] Alpha 1 0.4 0.2 - 0.5 g/dL 12/20/2023 10:36 AM T [facility] Alpha 2 0.9 0.5 - 1.1 g/dL 12/20/2023 10:36 AM T [facility] Beta 0.7 0.6 - 1.1 g/dL 12/20/2023 10:36 AM [facility] Gamma 0.6(L) 0.7 - 1.6 g/dL 12/20/2023 10:36 AM [facility] Monoclonal Vahid 0.0 <=0.0 g/dL 12/20/2023 10:36 AM [facility] Interpretation Borderline hypogammaglobuli nemia. Consider urine immunofixation to rule out Bence Orozco proteinuria. 12/20/2023 10:36 AM [facility] Signed Out By [facility] 12/20/2023 10:36 AM [facility] Blood Venipuncture / Unknown 12/18/2023 3:21 PM CDT 12/18/2023 3:21 PM CDT Denise Davila MD LAB_1 [facility] 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
--- OUTSIDE RECORDS SUMMARY | 2024-01-07 13:22 | XMS_ITS | Encounter Summary ---
Author Organization [facility] Address [address] [address] Care Team Providers Care Supply Chain Development Manager Name Role Phone Clinician, Not Found MD Primary Care Provider Un available Encounter Details Date Type Department Care Team (Late st Contact Info) Description 12/27/2023 Notes/Orders [place] [address] [place] [address]. [place], [place] [phone] Denise Davila MD [address] [place], [place] [phone] Social History Tobacco Use Types Packs/Day Years [...] also seen by her primary yesterday at [facility].She is scheduled to have imaging study of her liver and echocardiogram. I called her primary Dr. Newton at phone number [phone] to discuss about her condition. I still could not reach Dr. Chandler and left her phone number to call me back. documented in this encounter Plan of Treatment Upcoming Encounters Date Type Department Care Team (Late st Contact Info) Description 01/15/2024 2:30 PM CDT Appointment [facility] [address] [place] [address] [place] [address] [place] [address] 04/25/2024 11:45 AM CDT Appointment [facility] [address] [place] [address] Denise Davila MD [address] [place] [address] documented as of this encounter Visit Diagnoses Not on filedocumented in this encounter Care Teams Supply Chain Development Manager Relationship Specialty Start Date End Date Clinician, Not Found, [place] [address] PCP - General 03/01/18 documented as of this encounter
--- OUTSIDE RECORDS SUMMARY | 2024-01-07 13:22 | XMS_ITS | Encounter Summary ---
Author Organization [facility] Address [address] [address] Care Team Providers Care Feather Stitcher Name Role Phone Clinician, Not Found MD Primary Care Provider Un available Encounter Details Date Type Department Care Team (Latest Contact Info) Description 01/02/2024 Orders Only [facility] DEPARTMENT Provider, [place] [address] Social History Tobacco Use Types Packs/Day Years [...] Info) Description 01/15/2024 2:30 PM CDT Appointment [facility] [address] [place] [address] Denise Davila MD [address] [place] [address] 04/25/2024 11:45 AM CDT Appointment [facility] [address] [place] [address] Denise Davila MD [address] [place] [address] documented as of this encounter Procedures Procedure Name Priority Date/Time Associated Diagnosis Comments LABORATORY REPORT 01/02/2024 documented in this encounter Results * LABORATORY REPORT (01/02/2024) Interface Provider DUMMY/OTHER/AR documented in this encounter Visit Diagnoses Not on filedocumented in this encounter Care Teams Feather Stitcher Relationship Specialty Start Date End Date Clinician, Not Found, [place] [address] PCP - General 03/01/18 documented as of this encounter
--- OUTSIDE RECORDS SUMMARY | 2024-01-07 13:22 | XMS_ITS | Clinical Summary ---
Author Organization [facility] Address [place], [place] [address] Care Team Providers Care Road Manager Name Role Phone Tamera Jimenez MD Primary Care Provider + Allergies Active [...] right foot with fat layer exposed (HC) [phone] Squared Toe Post OP Shoe, Small 1 [...] Encounters Date Type Department Care Team Description 12/28/2023 9:00 AM CDT Ancillary Procedure [facility] [address] [place] [address] 12/12/2023 11:30 AM CDT Office Visit [facility] [address] [place] [address] Toney Winchester DPM Ulcer (Follow up-right foot) 12/12/2023 Travel 11/28/2023 1:00 PM CDT Office Visit [facility] [address] [place] [facility] [address] Toney Winchester DPM Ulcer (Follow up-right foot) 11/28/2023 Travel 11/14/2023 2:45 PM CDT Office Visit [facility] [address] [facility] [address] Toney Winchester DPM Follow Up (Right ulcer , 3 week follow up) 11/14/2023 Travel 10/24/2023 11:00 AM CDT Office Visit [facility] [address] [facility] [address] Toney Winchester DPM Consult (Right foot wound [...] ST Respiratory Rate 16 10/19/2021 12:29 PM DIGITAL SALES ASSISTANT Oxygen Saturation 100% 12/12/2023 11:36 AM CDT Inhaled Oxygen Concentration - - Weight 66.2 kg (146 lb) 12/12/2023 11:36 AM CDT Height 162.6 cm (5' 4) 10/18/2021 7:55 AM DIGITAL SALES ASSISTANT Body Mass Index 25.06 10/18/2021 7:55 AM DIGITAL SALES ASSISTANT Plan of Treatment Health Maintenance Due Date [...] 09/24/2019, 03/26/2009 Medical Devices Implanted Type Area Logistics Operations Manager Device Identifier Shelf Expiration Date Model / Serial / Lot Simplex P Bone Cement - Half Dose Implanted:Qty: 2 on 10/18/2021 by Kevin Hogue MD at [facility] Left: Knee [employer] 07/12/2023 / 6188-1-001 / [id number] Tri[employer]lon Femoral Posterior Augment Implanted:Qty: 1 on 10/18/2021 by Kevin Hogue MD at [facility] Left: Knee [employer] 06/01/2025 / 5543-A-400 / [id number] Simplex P Bone Cement Full Dose Implanted:Qty: 2 on 10/18/2021 by Kevin Hogue MD at [facility] Left: Knee [employer] 09/12/2023 / [id number] / [id number] Triathlon Fluted Stem - Tibia Implanted:Qty: 1 on 10/18/2021 by Kevin Hogue MD at [facility] Left: Knee [employer] 10/09/2025 / [id number]-[id number]-011 / [id number] [employer]lon Tritanium Tibial Symmetric Cone Augment Implanted:Qty: 1 on 10/18/2021 by Kevin Hogue MD at [facility] Left: Knee [employer] 05/04/2026 / [id number]-A-130 / [id number] Triathlon Total Knee Anderson Tibial Baseplate Implanted:Qty: 1 on 10/18/2021 by Kevin Hogue MD at [facility] Left: Knee [employer] 12/19/2025 / [id number]-B-400 / [id number] [employer]lon Fluted Stem - Femur Implanted:Qty: 1 on 10/18/2021 by Kevin Hogue MD at [facility] Left: Knee [employer] 06/15/2025 / [id number]-[id number]-016 / [id number] Triathlon Total Stabilizer Femoral Component Implanted:Qty: 1 on 10/18/2021 by Kevin Hogue MD at [facility] Left: Knee [employer] 01/16/2026 / [id number]-[id number] / [id number] Triathlon X3 Total Stablizer+ Tibial Insert Implanted:Qty: 1 on 10/18/2021 by Kevin Hogue MD at [facility] Left: Knee [employer] 08/31/2026 / [id number]-G-[id number] -[id number] / [id number] Triathlon Femoral Posterior Augment Implanted:Qty: 1 on 10/18/2021 by Kevin Hogue MD at [facility] Left: Knee [employer] 09/05/2025 / [id number]-A-400 / [id number] Procedures Procedure Name Priority Date/Time Associated Diagnosis Comments ECHO TTE COMPLETE WO CONTRAST Routine 12/28/2023 9:58 AM CDT Unspecified atrial fibrillation (HC) from Last 3 Months Results * ECHO TTE COMPLETE WO CONTRAST (12/28/2023 9:58 AM CDT) AORTIC VALVE MEAN PG 4 mmHg PEAK TR VELOCITY 3.2 m/s LVEDD 3.5 cm EJECTION FRACTION 55 - 60% Anatomical Region Laterality Modality Ultrasound 12/28/2023 9:13 AM CDT Narrative 12/28/2023 10:52 AM CDT ECHOCARDIOGRAM ABIMBOLA PRECIADOSUSANAKIERA ? Accession#: ?? [id number] : ?1940 83 years Study Date: ?? 12/28/2023 9:13:23 AM Gender: F ?BP: ? 147/88 mmHg Height: 163.00 cm ?BSA: ?1.71 m? ? ? Weight: 66.00 kg ? Tech: ? MBF ? Referring MD: TAMERA JIMENEZ Site: ? [facility] Reading Location: Mobile [facility] Patient Location: Outpatient. Procedure: 2D, Color Doppler and Spectral Doppler. Indication for study: AFIB Cardiac Rhythm: Atrial fibrillation.Study quality: Technically limited. Final Impressions: 1. Technically limited exam. 2. Patient in rapid atrial fibrillation during image acquisition. HR at times > 130 BPM. 3. Normal LV size, normal wall thickness, normal global systolic function with an estimated EF of 55 - 60%. 4. Right ventricular cavity size is mildly enlarged, global systolic RV function is mildly reduced. 5. The aortic valve is probably trileaflet and sclerotic, no stenosis and trivial regurgitation. 6. The mitral valve is sclerotic, mild mitral regurgitation. 7. Mitral stenosis with severely increased mean gradient of 17.0 mmHg at a heart rate of 136. 8. Moderate tricuspid regurgitation. 9. Severely enlarged left atrium. 10. Moderately increased estimated pulmonary pressures by tricuspid regurgitation velocity and right atrial pressure (40 mmHg plus RAP). Chamber Sizes and Function Normal left ventricular size, normal wall thickness, normal global systolic function with an estimated EF of 55 - 60%. Left atrial size is severely enlarged. Right ventricular cavity size is mildly enlarged, global systolic RV function is mildly reduced. The right atrium is mildly enlarged. Right atrial volume index is 29 ml/m? ? ?. Right atrial area is 18 cm? ? ?. The pulmonary artery is of normal size and origin. The sinus of Valsalva is normal sized. The ascending aorta is normal sized. Valves, RV Pressures and Diastolic Function The aortic valve is probably trileaflet and sclerotic, no stenosis and trivial regurgitation. The mitral valve is sclerotic, mild mitral regurgitation. A severely increased gradient of 17.0 mmHg at a heart rate of 136 is calculated across the mitral valve using continuous Doppler examination. Indeterminate pattern of LV diastolic filling. The tricuspid valve is normal in structure. Tricuspid regurgitation is moderate. The tricuspid regurgitant velocity is 3.2 m/s, the estimated right ventricular systolic pressure is 40 mmHg plus right atrial pressure. There is moderately increased estimated pulmonary pressure by tricuspid regurgitation velocity and right atrial pressure. The pulmonic valve is not well visualized. Trace pulmonary regurgitation. Masses, Effusion, Shunts There is no pericardial effusion. The inferior vena cava is dilated, respiratory size variation less than 50%. No left to right shunting was detected by limited color flow Doppler interrogation of the interatrial septum. MEASUREMENTS AND CALCULATIONS 2-D Measurements and LV Function: LVID (d) 3.5 cm LV FS% (2D) ?? 15 % LVID (s) 3.0 cm LVOT diameter 1.8 cm IVS (d) ??1.2 cm HR ?120 bpm LVPW (d) 1.2 cm LA Vol index ??72 ml/m2 Ao Sinus 2.7 cm RA Vol index ??29 ml/m2 Asc Ao ?? 3.4 cm RA area ? 18 cm?RV Max 4C (d) 4.5 cm Aortic Valve: Vmax ? 1.3 m/s ??VIKTORIYA (V) ?? 1.52 cm? ? ? VTI ?0.33 m ?? VIKTORIYA (I) ?? 0.94 cm? ? ? LVOT V max 0.7 m/s ??Max PG ?6 mmHg LVOT VTI ?? 0.12 m ?? Mean PG ?? 4 mmHg SV ? 31 ml ?Dim Index 0.37 SV index ?? 18 ml/m? ? ? CO ?3.7 l/min ?CI ?2.2 l/min/m? ? ? Mitral Valve: MV Mean G 17 mmHg MR TVI 1.12 m MV VTI ?0.33 m Tricuspid Valve and estimated PA pressures: TR Vmax 3.2 m/s TAPSE 0.6 cm TR maxG 40 mmHg . Report modified by Chandrakant Tomas MD on 12/28/2023 10:53:15 AM. This study was interpreted by an [facility] accredited facility. CC: HIM (med records) [facility]. ??Final (Updated) ?? Procedure Note Chandrakant Tomas MD - 12/28/2023 ECHOCARDIOGRAM ABIMBOLA SAMUELS : 1940 83 years Study Date: 12/28/2023 9:13:23 AM Gender: F BP: 147/88 mmHg Height: 163.00 cm BSA: 1.71 m? ? ? Weight: 66.00 kg Tech: [facility] Referring MD: TAMERA JIMENEZ Site: [facility] Reading Location: Mobile [facility] Patient Location: Outpatient. Procedure: 2D, Color Doppler and Spectral Doppler. Indication for study: AFIB Cardiac Rhythm: Atrial fibrillation.Study quality: Technically limited. Final Impressions: 1. Technically limited exam. 2. Patient in rapid atrial fibrillation during image acquisition. HR attimes > 130 BPM. 3. Normal LV size, normal wall thickness, normal global systolic functionwith an estimated EF of 55 - 60%. 4. Right ventricular cavity size is mildly enlarged, global systolic RVfunction is mildly reduced. 5. The aortic valve is probably trileaflet and sclerotic, no stenosis andtrivial regurgitation. 6. The mitral valve is sclerotic, mild mitral regurgitation. 7. Mitral stenosis with severely increased mean gradient of 17.0 mmHg marichuy heart rate of 136. 8. Moderate tricuspid regurgitation. 9. Severely enlarged left atrium. 10. Moderately increased estimated pulmonary pressures by tricuspidregurgitation velocity and right atrial pressure (40 mmHg plus RAP). Chamber Sizes and Function Normal left ventricular size, normal wall thickness, normal globalsystolic function with an estimated EF of 55 - 60%. Left atrial size isseverely enlarged. Right ventricular cavity size is mildly enlarged,global systolic RV function is mildly reduced. The right atrium is mildlyenlarged. Right atrial volume index is 29 ml/m? ? ?. Right atrial area is 18cm? ? ?. The pulmonary artery is of normal size and origin. The sinus ofValsalva is normal sized. The ascending aorta is normal sized. Valves, RV Pressures and Diastolic Function The aortic valve is probably trileaflet and sclerotic, no stenosis andtrivial regurgitation. The mitral valve is sclerotic, mild mitralregurgitation. A severely increased gradient of 17.0 mmHg at a heart rateof 136 is calculated across the mitral valve using continuous Dopplerexamination. Indeterminate pattern of LV diastolic filling. The tricuspid valve isnormal in structure. Tricuspid regurgitation is moderate. The tricuspidregurgitant velocity is 3.2 m/s, the estimated right ventricular systolicpressure is 40 mmHg plus right atrial pressure. There is moderatelyincreased estimated pulmonary pressure by tricuspid regurgitation velocityand right atrial pressure. The pulmonic valve is not well visualized.Trace pulmonary regurgitation. Masses, Effusion, Shunts There is no pericardial effusion. The inferior vena cava is dilated,respiratory size variation less than 50%. No left to right shunting wasdetected by limited color flow Doppler interrogation of the interatrialseptum. MEASUREMENTS AND CALCULATIONS 2-D Measurements and LV Function: LVID (d) 3.5 cm LV FS% (2D) 15 % LVID (s) 3.0 cm LVOT diameter 1.8 cm IVS (d) 1.2 cm HR 120 bpm LVPW (d) 1.2 cm LA Vol index 72 ml/m2 Ao Sinus 2.7 cm RA Vol index 29 ml/m2 Asc Ao 3.4 cm RA area 18 cm? ? ? RV Max 4C (d) 4.5 cm Aortic Valve: Vmax 1.3 m/s VIKTORIYA (V) 1.52 cm? ? ? VTI 0.33 m VIKTORIYA (I) 0.94 cm? ? ? LVOT V max 0.7 m/s Max PG 6 mmHg LVOT VTI 0.12 m Mean PG 4 mmHg SV 31 ml Dim Index 0.37 SV index 18 ml/m? ? ? CO 3.7 l/min CI 2.2 l/min/m? ? ? Mitral Valve: MV Mean G 17 mmHg MR TVI 1.12 m MV VTI 0.33 m Tricuspid Valve and estimated PA pressures: TR Vmax 3.2 m/s TAPSE 0.6 cm TR maxG 40 mmHg . Report modified by Chandrakant Tomas MD on 12/28/2023 10:53:15 AM. This study was interpreted by an [facility] accredited facility. CC: [facility] ([facility]) [facility]. Final (Updated) Tamera Jimenez MD ECHO ORD from Last 3 Months Advance Directives Documents on File Type Date Recorded Patient Battery Test Engineer Expl anation Healthcare Directive 10/20/2021 8:51 AM [...] Preferences, Provider to review later Care Teams Road Manager Relationship Specialty Start Date End Date Tamera Jimenez MD [address] [place] [address] PCP - General Family Practice 10/24/23
--- OUTSIDE RECORDS SUMMARY | 2024-01-07 13:22 | XMS_ITS | Encounter Summary ---
Author Organization [employer] Address [address] [address] Care Team Providers Care School Principal Name Role Phone Clinician, Not Found MD Primary Care Provider Un available Reason for Visit * Reason Comments PHONE CALL TO PATIENT Encounter Details Date Type Department Care Team (Late st Contact Info) Description 12/19/2023 Telephone [place] [id number] Rheumatology [facility] [place], [place] [phone] Denise Davila MD [facility] [place], [place] [phone] PHONE CALL TO PATIENT Social History Tobacco [...] Sharita Henao - 12/19/2023 2:22 PM CDT [facility] records received and placed in your inbox in CONSUMER LOAN UNDERWRITER. * Suri Stovall RN - 12/19/2023 10:24 AM CDT Spoke to patient, relaying provider's message below. Patient states that she notified the clinic yesterday to have results faxed over to us but she will reach out to them again today. * Denise Davlia MD - 12/19/2023 9:59 AM CDT Please call to remind her to have outside records (from [facility] system) and lab results faxed to me to review documented in this encounter Plan of Treatment Upcoming Encounters Date Type Department Care Team (Late st Contact Info) Description 01/15/2024 2:30 PM CDT Appointment [facility] [address] [place] [address] Denise Davila MD [address] [place] [address] 04/25/2024 11:45 AM CDT Appointment [facility] [address] [place] [address] Denise Davila MD [address] [place] [address] documented as of this encounter Visit Diagnoses Not on filedocumented in this encounter Care Teams School Principal Relationship Specialty Start Date End Date Clinician, Not Found, [place] [address] PCP - General 03/01/18 documented as of this encounter
--- OUTSIDE RECORDS SUMMARY | 2024-01-07 13:22 | XMS_ITS | Encounter Summary ---
Author Organization [facility] Address [address] [place] [address] Care Team Providers Care Medical Claims Representative Name Role Phone Clinician, Not Found MD Primary Care Provider Un available Reason for Visit * Reason Comments Refill Encounter Details Date Type Department Care Team (Late st Contact Info) Description 11/13/2023 Refill [facility] [address] [place], [place] [address] Denise Davila MD [address] [place] [address] Refill Social History Tobacco Use Types Packs/Day [...] Info) Description 01/15/2024 2:30 PM CDT Appointment [facility] [address] [place] [address] [place] [address] [place] [address] 04/25/2024 11:45 AM CDT Appointment [facility] [address] [place] [address] Denise Davila MD [address] [place] [address] documented as of this encounter Visit Diagnoses Diagnosis Osteoarthritis of multiple joints, unspecified osteoarthritis type PMR (polymyalgia rheumatica) ([facility])- Primary Polymyalgia rheumatica 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
--- OUTSIDE RECORDS SUMMARY | 2024-01-07 13:22 | XMS_ITS | Encounter Summary ---
Author Organization [facility] Address [address], [place] [address] Care Team Providers Care Psychotherapist Counselor Name Role Phone Clinician, Not Found MD Primary Care Provider Un available Encounter Details Date Type Department Care Team (Late st Contact Info) Description 12/20/2023 Notes/Orders [place] [address] [place] [address]. [place] [address] Denise Davila MD [address] [place] [address] [phone] Arthralgia, unspecified joint (Primary Dx); PMR (polymyalgia [...] 7:43 AM CDT Received outside records from [facility]: Based on the outside record notes, the [...] prednisone (5-mg tablet) to her local pharmacy ([facility], not the [facility] script) so that she can follow this [...] Description 01/15/2024 2:30 PM CDT Appointment [facility] [address] [place] [address] [place] [address] [place] [address] [phone] 04/25/2024 11:45 AM CDT Appointment [facility] [address] [place] [address] Denise Davila MD [address] [place], [place] 594956 Scheduled Orders Name Type Priority Associated Diagnoses Orde r Schedule C-Reactive Protein Lab Routine PMR (polymyalgia rheumatica) (HRC) 12 Occurrences starting 12/20/2023 until 12/19/2024 Sedimentation Rate (ESR) Lab Routine PMR (polymyalgia rheumatica) (HR) 12 Occurrences starting 12/20/2023 until 12/19/2024 documented as of this encounter Results * CK, Total (12/18/2023 3:21 PM CDT) CK, Total 65 29 - 168 U/L 12/20/2023 10:13 AM CDT [facility] Blood Venipuncture / Unknown 12/18/2023 3:21 PM CDT 12/18/2023 3:21 PM CDT Denise Davila MD LAB_1 [facility] [address] [address] documented in this encounter Visit Diagnoses Diagnosis Arthralgia, unspecified joint- Primary PMR (polymyalgia rheumatica) (HRC) Polymyalgia rheumatica PMR (polymyalgia rheumatica) (HRC)- Primary Polymyalgia rheumatica 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
--- OUTSIDE RECORDS SUMMARY | 2024-01-07 13:22 | XMS_ITS | Encounter Summary ---
Author Organization [employer] Address [address] [place] [address] Care Team Providers Care Data Support Analyst Name Role Phone Clinician, Not Found MD Primary Care Provider Un available Reason for Visit * Reason Comments Follow-up Encounter Details Date Type Department Care Team (Late st Contact Info) Description 12/18/2023 2:30 PM CDT Office Visit [facility] [address] [place] [address] Denise Davila MD [facility] [place], [place] [phone] Chronic tophaceous gout (Primary Dx); Osteoarthritis of [...] with her primary care provider in the [facility] system. She was told to have elevated [...] Info) Description 01/15/2024 2:30 PM CDT Appointment [facility] [address] [place], [place] [phone] Denise Davlia MD [address] [place] [address] 04/25/2024 11:45 AM CDT Appointment [facility] [address] [place], [place] [phone] Denise Davila MD [address] [place], [place] [phone] documented as of this encounter Results * CCP Antibody (12/18/2023 3:21 PM CDT) [facility] Anti-CCP Antibody 0.5 0.0 - 6.9 U/mL 12/19/2023 1:00 PM CDT [facility] Anti-CCP Antibody Interpretation Negative Negative 12/19/2023 1:00 PM CDT [facility] Blood Venipuncture / Unknown 12/18/2023 3:21 PM CDT 12/18/2023 3:21 PM CDT Narrative [facility] - 12/19/2023 1:00 PM CDT This result was obtained with the Phadia 250. Quantitative results cannot be directly compared to other manufacturers' methods. Denise Davila MD LAB_1 [facility] [address] * Rheumatoid Factor, Quant (12/18/2023 3:21 PM CDT) [facility] Rheumatoid Factor, Quantitative <15 <=30 IU/mL 12/18/2023 9:03 PM CDT [facility] Blood Venipuncture / Unknown 12/18/2023 3:21 PM CDT 12/18/2023 3:21 PM CDT Denise Davila MD LAB_1 [facility] [address] [employer] [place], [place] [address] * Sedimentation Rate (ESR) (12/18/2023 3:21 PM CDT) Pathologist [facility] Sedimentation Rate 12 0 - 20 mm/hr 12/18/2023 3:55 PM CDT [facility] Blood Venipuncture / Unknown 12/18/2023 3:21 PM CDT 12/18/2023 3:21 PM CDT Denise Davila MD LAB_1 Performing Organization Address [facility]/ZIP Co de Phone Number [address] [phone] * (ABNORMAL) C-Reactive Protein (12/18/2023 3:21 PM CDT) Pathologist [facility] C-Reactive Protein 1.4(H) 0.0 - 0.5 mg/dL 12/18/2023 5:10 PM CDT [facility] Blood Venipuncture / Unknown 12/18/2023 3:21 PM CDT 12/18/2023 3:21 PM CDT Denise Davila MD LAB_1 Performing Organization Address [facility]/ZIP Co de Phone Number [address] [phone] * (ABNORMAL) Protein ELP (Serum) (12/18/2023 3:21 PM CDT) Pathologist [facility] Total Protein 6.9 6.4 - 8.3 g/dL 12/20/2023 10:36 AM CDT [facility] Albumin 4.3 3.4 - 4.8 g/dL 12/20/2023 10:36 AM CDT [facility] Alpha 1 0.4 0.2 - 0.5 g/dL 12/20/2023 10:36 AM CDT [facility] Alpha 2 0.9 0.5 - 1.1 g/dL 12/20/2023 10:36 AM CDT [facility] Beta 0.7 0.6 - 1.1 g/dL 12/20/2023 10:36 AM CDT [facility] Gamma 0.6(L) 0.7 - 1.6 g/dL 12/20/2023 10:36 AM CDT [facility] Monoclonal Vahid 0.0 <=0.0 g/dL 12/20/2023 10:36 AM CDT [facility] Interpretation Borderline hypogammaglobuli nemia. Consider urine immunofixation to rule out Bence Orozco proteinuria. 12/20/2023 10:36 AM T [facility] Signed Out By 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) Osteoarthritis of multiple joints, unspecified osteoarthritis type Arthralgia, unspecified joint PMR (polymyalgia rheumatica) (HRC)- Primary Polymyalgia rheumatica 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
== END 2023-12-21 09:23 | disposition home or self-care (01) ==
LOC: NFLDREF 01-07 13:20
PROVIDERS: PCP Family Medicine; Referring Provider Family Medicine; Visit Provider Family Medicine
DX: M35.3 Polymyalgia rheumatica (principal); N18.9 Chronic kidney disease, unspecified; R79.89 Other specified abnormal findings of blood chemistry
CPT/HCPCS: 80053; 86140

== ENCOUNTER 2023-12-28 08:54 | Outpatient (CLI) | payer MEDICARE, OTHER, SELFPAY ==
--- OUTSIDE RECORDS SUMMARY | 2023-12-28 09:02 | XMS_ITS | Encounter Summary ---
Author Name Unknown Organization [facility] Address [address], [place] [address] Care Team Providers Care Intranet Support Name Role Phone Clinician, Not Found MD Primary Care Provider Un available Encounter Details Date Type Department Care Team (Late st Contact Info) Description 12/20/2023 Notes/Orders [place] [address] [place] [address]. [place] [address] Denise Davila MD [address] [place] [address] [phone] Arthralgia, unspecified joint (Primary Dx); PMR (polymyalgia rheumatica) (HRC) Social History Tobacco Use Types Packs/Day Years Used Date Smoking Tobacco: Never Smokeless Tobacco: Never Alcohol Use Standard Drinks/Week Comments Yes 0 (1 standard drink = 0.6 oz pur e alcohol) Sex and Gender Information Value Date Recorded Sex Assigned at Not on file Gender Identity Not on file Sexual Orientation Not on file documented as of this encounter Progress Notes * Denise Davila MD - 12/20/2023 7:43 AM CDT Received outside records from [facility]: Based on the outside record notes, the patient was found to have sedimentation rate of 59, mildly elevated creatinine kinase of 180 (no reported normal results). AST and ALT were mildly elevated but the bilirubin was normal but the numbers were unclear. The date for these test results were not documented but estimated to be approximately early November,. On follow-up on the tests on 12/11/2023 (after 10 days of taking prednisone 20 mg a day), her ESR came down to 16. C-reactive protein less than 0.1 mg/dL. AST, ALT were normalized. Alkaline phosphatase was slightly elevated at 188 (40-150). CPK was normalized a 60 (41-117). Normal serum electrolytes. Serum creatinine was 1.6 with estimated GFR of 32. Glucose 92. Please call the patient to let her know that I have received the above test results. Together with the recent blood tests, the C-reactive protein is still slightly elevated. And therefore, I would like her to increase the dose of prednisone temporarily as follow: 25 mg a day for 2 weeks, 20 mg a day for 2 weeks, 17.5 mg a day for 2 weeks, then she will stay at 15 mg a day. I have faxed prescription of prednisone (5-mg tablet) to her local pharmacy ([facility], not the express script) so that she can follow this scheduled. Please remind her that this is 5- mg tablet and not 20-mg tablet as she is currently using. Please also help make an earlier follow-up appointment to 8 weeks in early February,, not April as currently is. * Isamar Rushing LPN - 12/20/2023 7:43 AM CDT Patient informed. Verbalized understanding. She has a 6-4 appointment and wants to know if that is ok instead of February. * Denise Davila MD - 12/20/2023 7:43 AM CDT This is OK. Please ask her to have blood tests for ESR and C-RP a few days before the appointment in our system. Standing orders have been placed for her. * Suri Stovall RN - 12/20/2023 7:43 AM CDT Spoke with patient, given the information below and patient verbalized understanding. documented in this encounter Plan of Treatment Upcoming Encounters Date Type Department Care Team (Late st Contact Info) Description 01/15/2024 2:30 PM CDT Appointment [facility] [address] [place] [address] [place] [address] [place] [address] [phone] 04/25/2024 11:45 AM CDT Appointment [facility] [address] [place] [address] Denise Davila MD [address] [place], [place] 377336 Scheduled Orders Name Type Priority Associated Diagnoses Orde r Schedule C-Reactive Protein Lab Routine PMR (polymyalgia rheumatica) (HRC) 12 Occurrences starting 12/20/2023 until 12/19/2024 Sedimentation Rate (ESR) Lab Routine PMR (polymyalgia rheumatica) (HRC) 12 Occurrences starting 12/20/2023 until 12/19/2024 documented as of this encounter Results * CK, Total (12/18/2023 3:21 PM CDT) CK, Total 65 29 - 168 U/L 12/20/2023 10:13 AM CDT [facility] Blood Venipuncture / Unknown 12/18/2023 3:21 PM CDT 12/18/2023 3:21 PM CDT Denise Davila MD LAB_1 [facility] [address] [address] documented in this encounter Visit Diagnoses Diagnosis Arthralgia, unspecified joint- Primary PMR (polymyalgia rheumatica) (HRC) Polymyalgia rheumatica documented in this encounter Care Teams Intranet Support Relationship Specialty Start Date End Date Clinician, Not Found, [place] [address] PCP - General 03/01/18 documented as of this encounter
--- OUTSIDE RECORDS SUMMARY | 2023-12-28 09:02 | XMS_ITS | Continuity of Care Document ---
Author Name Unknown Organization [facility] Address [address] [place] [address] Phone Care Team Providers Care Information Technology Data Analyst Name Role Phone Unavailable Unavailable Unavailable Allergies, [...] Copied on Encounter [facility], [address], [place], [id number] , tel:[phone] [facility] No Information May-2 No Information Office/Outpat ient Visit,Est, Mod [facility], [address], [place], [id number] , [place] tel:[phone] [facility] Other idiopathic scoliosis, lumbar region Rafa Miller. [facility], [address], [address], [place], [place], [id number], [place]. tel:[phone] Referring Provider: Terry Grant, [facility] [address] [place], [address]. tel:[phone] Office/Outpat ient Visit,New, Mod [facility], [address], [facility] [place], [id number] , [place] tel:[phone] [facility] Spinal stenosis, lumbar region with neurogenic claudication Spondylolysi s, lumbar regionOther idiopathic scoliosis, lumbar region No Information Referring Provider: Terry Grant, [facility] [address] [place], [address]. tel:[phone] Family History Family Member Type Diagnosis Age At Onset No Information Payers Payer name Insurance type Covered constitution party ID Authoriza tion(s) Medicare MB [id number] For Life/Retired Hunter [id number] Social History Type Description Quantity Date Captured [...]
--- OUTSIDE RECORDS SUMMARY | 2023-12-28 09:02 | XMS_ITS | Encounter Summary ---
Author Name Unknown Organization [facility] Address [address], [place] [address] Care Team Providers Care Director Of Religious Activities Name Role Phone Clinician, Not Found MD Primary Care Provider Un available Reason for Visit * Reason Comments PHONE CALL TO PATIENT Encounter Details Date Type Department Care Team (Late st Contact Info) Description 12/19/2023 Telephone [place] [phone] Rheumatology [facility] [place], [place] [phone] Denise Davila MD [address] [place], [place] [phone] PHONE CALL TO PATIENT Social History Tobacco Use Types Packs/Day Years Used Date Smoking Tobacco: Never Smokeless Tobacco: Never Alcohol Use Standard Drinks/Week Comments Yes 0 (1 standard drink = 0.6 oz pur e alcohol) Sex and Gender Information Value Date Recorded Sex Assigned at Not on file Gender Identity Not on file Sexual Orientation Not on file documented as of this encounter Nursing Notes * Isamar Rushing LPN - 12/20/2023 8:30 AM CDT Noted. * Denise Davila MD - 12/20/2023 8:04 AM CDT Thank you. Please see the different phone note sent this morning. * Sharita Henao - 12/19/2023 2:22 PM CDT [place] records received and placed in your inbox in [facility]. * Suri Stovall RN - 12/19/2023 10:24 AM CDT Spoke to patient, relaying provider's message below. Patient states that she notified the clinic yesterday to have results faxed over to us but she will reach out to them again today. * Denise Davila MD - 12/19/2023 9:59 AM CDT Please call to remind her to have outside records (from [facility]) and lab results faxed to me to review documented in this encounter Plan of Treatment Upcoming Encounters Date Type Department Care Team (Late st Contact Info) Description 01/15/2024 2:30 PM CDT Appointment [facility] [address] [place] [address] Denise Davila MD [address] [place] [address] 04/25/2024 11:45 AM CDT Appointment [facility] [address] [place] [address] Denise Davila MD [address] [place] [address] documented as of this encounter Visit Diagnoses Not on filedocumented in this encounter Care Teams Director Of Religious Activities Relationship Specialty Start Date End Date Clinician, Not Found, [place] [address] PCP - General 03/01/18 documented as of this encounter
--- OUTSIDE RECORDS SUMMARY | 2023-12-28 09:02 | XMS_ITS | Clinical Summary ---
Author Name Unknown [facility] Address [address] [place] [address] Care Team Providers Care Foil Operator Name Role Phone Clinician, Not Found MD Primary Care Provider Un available Source Comments You are receiving this document as you are listed as the primary care provider,follow-up provider, or the patient has been referred to you for consultation.This is in compliance with the Medicare and[facility] EHR Incentive Program,which states Providers who transition their patient to another setting of careor provider of care or refers their patient to another provider of care shouldprovide summary care record for each transition of care or referral. [facility] Allergies Active Allergy Reactions Criticality Noted Date [...] Capsule (20 mg) by mouth. 5 Active atenolol (TENORMIN) 25 [...] FOR JOINT PAIN 60 Tablet 4 Active metoprolol succinate (TOPROL XL) 25 MG 24 hour release tablet Take 0.5 Tablets (12.5 mg) by mouth daily. 4 Active predniSONE (DELTASONE) 20 MG tablet Take 1 Tablet (20 mg) by mouth daily. 4 Active calcium carbonate-vitamin D 600-10 MG-MCG tablet 1 tab twice a day with meals. 4 Active predniSONE (DELTASONE) 5 MG tablet All in am: 25 mg a day (5 tabs) for 2 weeks, 20 mg a day f(4 tabs) or 2 weeks, 17.5 mg a day (3.5 tabs) for 2 weeks, then she will stay at 15 mg a day( 3 tabs). (New instruction as of 12/20/2023) 250 Tablet 1 4 Active Cholecalciferol (VITAMIN D3) 2000 units Take 2,000 Units by mouth. 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 Renal insufficiency 10/01/2020 Hyperuricemia 09/10/2020 S/P total knee arthroplasty, bilateral 8 S/P appendectomy 03/29/2018 Restless legs syndrome (RLS) 03/29/2018 Chronic left shoulder pain 03/29/2018 Psoriatic arthritis 03/29/2018 Sensorineural hearing loss 02/22/2005 Overview: LW Onset: 22Wss55 ; Hearing Loss Sensorineural Undiagnosed cardiac murmurs 02/22/2005 Overview: LW Modifier: functional LW Onset: 01Zao86 ; Heart Murmur Right bundle branch block 02/22/2005 Overview: LW Onset: 54Asj39 Obesity 05/04/2004 Overview: LW Onset: 54Cmg82 Essential hypertension 01/17/2003 Overview: Hypertension Hypothyroidism 01/17/2003 Overview: Hypothyroidism Acquired Osteoarthritis 01/17/2003 Overview: DJD Chronic kidney disease, stage 3b Encounters Date Type Department Care Team Description 12/27/2023 Notes/Orders [place] [address] [place] [address]. [place] [address] Denise Davila MD 12/20/2023 Notes/Orders [place] [address] [place] [address]. [place] [address] Denise Davila MD Arthralgia, unspecified joint (Primary Dx); PMR (polymyalgia rheumatica) (HRC) 12/19/[address] [place] [address] Denise Davila MD PHONE CALL TO PATIENT 12/18/2023 3:10 PM CDT Lab Visit [facility] [address] [place] [address] Arthralgia, unspecified joint 12/18/2023 2:30 PM CDT Office Visit [facility] [address] [place] [address] Denise Davila MD Chronic tophaceous gout (Primary Dx); Osteoarthritis of multiple joints, unspecified osteoarthritis type; Arthralgia, unspecified joint 11/13/2023 Refill [facility] [address] [place] [address] Denise Davila MD Refill from Last 3 Months Immunizations Name Administration Dates Next Due Flu Vac Preserv Free (3+yrs) 04/21/2013, 04/28/2009,05/21/2006,2004,05/04/2004 Influenza IIV3 (Trivalent) F luzone Highdose, 65+ Yrs (95689) 06/15/2020,07/01/2019,05/27/2018,2017,05/30/2017,05/15/2016,04/28/2014 Influenza IIV4 (Quadrivalent ) Fluad, 65+ Yrs 06/05/2022 Influenza IIV4 (Quadrivalent ) Fluzone, 65+ Yrs 06/15/2020 Influenza, Unspecified Formulation 06/15,05/21/2006,08/10/2005,2003,06/05/2003,07/25/2002,08/08/2001 PCV13 (Prevnar) 05/04/2015 PPSV23 (Pneumovax) 02/19/2006 Pfizer Monovalent 12+ Purple Top 07/08/2021,03/0 08/2020,09/20/2020 Td 07/19/1998 Tdap 09/24/2019,03/26/2009 Zoster (Zostavax) 04/01/2009 [...] Sign Reading Time Taken Comments Blood Pressure 151/80 12/18/2023 2:24 PM CDT Pulse 77 12/18/2023 2:24 PM CDT Temperature 35.9 ??C (96.6 ??F) 09/29/2022 9:47 AM CS T Respiratory Rate - - Oxygen Saturation - - Inhaled Oxygen Concentration - - Weight 70.3 kg (155 lb) 12/18/2023 2:24 PM CDT Height 164.5 cm (5' 4.75) 03/29/2018 9:30 AM CD T Body Mass Index 25.99 03/29/2018 9:30 AM CDT Plan of Treatment Upcoming Encounters Date Type Department Care Team (Late st Contact Info) Description 01/15/2024 2:30 PM CDT Appointment [facility] [address] [place] [address] Denise Davila MD [address] [place], [place] [address] 04/25/2024 11:45 AM CDT Appointment [facility] [address] [place] [address] Denise Davila MD [address] [place] [address] Health Maintenance Due Date Last Done Comments Medicare Annual Wellness Visit 1940 Dexa 02/27/2005 COVID-19 Vaccine ( season) 2023 06/03/2022, 07/08/2021, 10/11/2020, Additional history exists DTaP/Tdap/Td (3 - Tdap) 09/24/2029 09/24/19, 03/26/2009, 07/19/1998 HepA Aged Out 11/20/2012, 10/17/2012 No lo nger eligible based on patient's age to complete this topic Pneumococcal 65+ Yrs Completed 05/04/2015, 02/20/20 06 Zoster/Shingles Completed 10/18/2018, 07/14, 07/01/2009, Additional history exists Influenza Completed 05/10/2023, 05/14, 06/01/2022, Additional history exists HepB Aged Out No [...] on patient's age to complete this topic Procedures Procedure Name Priority Date/Time Associated Diagnosis Comments CK, TOTAL Routine 12/18/2023 3:21 PM CDT Arthralgia, unspecified joint ANTI-CCP AB Routine 12/18/2023 3:21 PM CDT Arthralgia, unspecified joint RHEUMATOID FACTOR, QUANT Routine 12/18/2023 3:21 PM CDT Arthralgia, unspecified joint SEDIMENTATION RATE (ESR) Routine 12/18/2023 3:21 PM CDT Arthralgia, unspecified joint C-REACTIVE PROTEIN Routine 12/18/2023 3: 21 PM CDT Arthralgia, unspecified joint PROTEIN ELP (SERUM) Routine 12/18/2023 3 :21 PM CDT Arthralgia, unspecified joint from Last 3 Months Results * CCP Antibody (12/18/2023 3:21 PM CDT) Pathologist [facility] Anti-CCP Antibody 0.5 0.0 - 6.9 U/mL 12/19/2023 1:00 PM CDT [facility] Anti-CCP Antibody Interpretation Negative Negative 12/19/2023 1:00 PM CDT [facility] Blood Venipuncture / Unknown 12/18/2023 3:21 PM CDT 12/18/2023 3:21 PM CDT [facility] - 12/19/2023 1:00 PM CDT This result was obtained with the Phadia 250. Quantitative results cannot be directly compared to other manufacturers' methods. Denise Davila MD LAB_1 [facility] [address] * (ABNORMAL) Protein ELP (Serum) (12/18/2023 3:21 PM CDT) Total Protein 6.9 6.4 - 8.3 g/dL 12/20/2023 10:36 AM CDT [facility] Albumin 4.3 3.4 - 4.8 g/dL 12/20/2023 10:36 AM CDT [facility] Alpha 1 0.4 0.2 - 0.5 g/dL 12/20/2023 10:36 AM CDT [facility] Alpha 2 0.9 0.5 - 1.1 g/dL 12/20/2023 10:36 AM CDT [facility] Beta 0.7 0.6 - 1.1 g/dL 12/20/2023 10:36 AM CDT [facility] Gamma 0.6(L) 0.7 - 1.6 g/dL 12/20/2023 10:36 AM CDT [facility] Monoclonal Vahid 0.0 <=0.0 g/dL 12/20/2023 10:36 AM T [facility] Interpretation Borderline hypogammaglobuli nemia. Consider urine immunofixation to rule out Bence Orozco proteinuria. 12/20/2023 10:36 AM T [facility] Signed Out By [facility] 12/20/2023 10:36 AM T [facility] Blood Venipuncture / Unknown 12/18/2023 3:21 PM CDT 12/18/2023 3:21 PM CDT Denise Davila MD LAB_1 Performing Organization Address City/State/[facility] Co de Phone Number [facility] [address] * Rheumatoid Factor, Quant (12/18/2023 3:21 PM CDT) [facility] Rheumatoid Factor, Quantitative <15 <=30 IU/mL 12/18/2023 9:03 PM CDT [facility] Blood Venipuncture / Unknown 12/18/2023 3:21 PM CDT 12/18/2023 3:21 PM CDT Denise Davila MD LAB_1 [facility] [address] [place], [place] [address] * (ABNORMAL) C-Reactive Protein (12/18/2023 3:21 PM CDT) C-Reactive Protein 1.4(H) 0.0 - 0.5 mg/dL 12/18/2023 5:10 PM CDT [facility] Blood Venipuncture / Unknown 12/18/2023 3:21 PM CDT 12/18/2023 3:21 PM CDT Denise Davila MD LAB_1 Performing Organization Address City/[facility] Co de Phone Number [facility] [address] [place] [address] * CK, Total (12/18/2023 3:21 PM CDT) CK, Total 65 29 - 168 U/L 12/20/2023 10:13 AM CDT [facility] Blood Venipuncture / Unknown 12/18/2023 3:21 PM CDT 12/18/2023 3:21 PM CDT Denise Davila MD LAB_1 Performing Organization Address [facility] Co de Phone Number [facility] [id number] [place] [address] * Sedimentation Rate (ESR) (12/18/2023 3:21 PM CDT) Sedimentation Rate 12 0 - 20 mm/hr 12/18/2023 3:55 PM CDT [facility] Blood Venipuncture / Unknown 12/18/2023 3:21 PM CDT 12/18/2023 3:21 PM CDT Denise Davila MD LAB_1 [facility] [address] [place] [address], [facility] from Last 3 Months Care Teams Foil Operator Relationship Specialty Start Date End Date Clinician, Not Found, [place] [address] PCP - General 03/01/18
--- OUTSIDE RECORDS SUMMARY | 2023-12-28 09:02 | XMS_ITS | Encounter Summary ---
Author Name Unknown Organization [facility] Address [address], [place] [address] Care Team Providers Care Sieve Repairer Name Role Phone Clinician, Not Found MD Primary Care Provider Un available Encounter Details Date Type Department Care Team (Late st Contact Info) Description 12/27/2023 Notes/Orders [place] [address] [place] [address]. [place], [place] [phone] Denise Davila MD [address] [place], [place] [phone] Social History Tobacco Use Types Packs/Day Years [...] Progress Notes * Denise Davila MD - 12/27/2023 10:22 AM CDT Outside labs: On 12/21/2023, normal serum electrolytes. Serum creatinine 1.4 (0.5-1.5). Normal calcium 9.3. Glucose 109. Normal total protein 6.7. Albumin 4.2. Total bilirubin 2.0. AST 181 (12-35), ALT 192 (4-35), alkaline phosphatase 253 (40-150). ESR 18. C-reactive protein 4.2 mg/dL. Called to talk to the patient. Patient was also seen by her primary yesterday at [facility].She is scheduled to have imaging study of her liver and echocardiogram. I called her primary Dr. Newton at phone number [phone] to discuss about her condition. I still could not reach Dr. Chandler and left her phone number to call me back. documented in this encounter Plan of Treatment Upcoming Encounters Date Type Department Care Team (Late st Contact Info) Description 01/15/2024 2:30 PM CDT Appointment [facility] [address] [place] [address] [place] [address] [place] [address] 04/25/2024 11:45 AM CDT Appointment [facility] [address] [place] [address] Denise Davila MD [address] [place] [address] documented as of this encounter Visit Diagnoses Not on filedocumented in this encounter Care Teams Sieve Repairer Relationship Specialty Start Date End Date Clinician, Not Found, [place] [address] PCP - General 03/01/18 documented as of this encounter
--- OUTSIDE RECORDS SUMMARY | 2023-12-28 09:03 | XMS_ITS | Encounter Summary ---
Author Name Unknown Organization [facility] Address [address], [place] [address] Care Team Providers Care Personal Injury Litigation Paralegal Name Role Phone Clinician, Not Found MD Primary Care Provider Un available Encounter Details Date Type Department Care Team (Late st Contact Info) Description 12/18/2023 3:10 PM CDT Lab Visit [facility] [address] [place] [address] Arthralgia, unspecified joint Social History Tobacco Use Types Packs/Day Years [...] Info) Description 01/15/2024 2:30 PM CDT Appointment [facility] [address] [place] [address] Denise Davila MD [facility] [place], [place] [id number] 04/25/2024 11:45 AM CDT Appointment [facility] [address] [place] [address] Denise Davila MD [address] [place], [place] [phone] documented as of this encounter Procedures Procedure Name Priority Date/Time Associated Diagnosis Comments ANTI-CCP AB Routine 12/18/2023 3:21 PM CDT Arthralgia, unspecified joint PROTEIN ELP (SERUM) Routine 12/18/2023 3 :21 PM CDT Arthralgia, unspecified joint RHEUMATOID FACTOR, QUANT Routine 12/18/2023 3:21 PM CDT Arthralgia, unspecified joint C-REACTIVE PROTEIN Routine 12/18/2023 3: 21 PM CDT Arthralgia, unspecified joint CK, TOTAL Routine 12/18/2023 3:21 PM CDT Arthralgia, unspecified joint SEDIMENTATION RATE (ESR) Routine 12/18/2023 3:21 PM CDT Arthralgia, unspecified joint documented in this encounter Results * CK, Total (12/18/2023 3:21 PM CDT) Pathologist [facility] CK, Total 65 29 - 168 U/L 12/20/2023 10:13 AM CDT [facility] Blood Venipuncture / Unknown 12/18/2023 3:21 PM CDT 12/18/2023 3:21 PM CDT Denise Davila MD LAB_1 [facility] [address] * CCP Antibody (12/18/2023 3:21 PM CDT) Pathologist [facility] Anti-CCP Antibody 0.5 0.0 - 6.9 U/mL 12/19/2023 1:00 PM CDT [facility] Anti-CCP Antibody Interpretation Negative Negative 12/19/2023 1:00 PM CDT [facility] Blood Venipuncture / Unknown 12/18/2023 3:21 PM CDT 12/18/2023 3:21 PM CDT Narrative [facility] - 12/19/2023 1:00 PM CDT This result was obtained with the Phadia 250. Quantitative results cannot be directly compared to other manufacturers' methods. Denise Davila MD LAB_1 Performing Organization Address City/[facility]/ZIP Co de Phone Number [facility] [address] * Rheumatoid Factor, Quant (12/18/2023 3:21 PM CDT) Pathologist [facility] Rheumatoid Factor, Quantitative <15 <=30 IU/mL 12/18/2023 9:[address] [facility] Blood Venipuncture / Unknown 12/18/2023 3:21 PM CDT 12/18/2023 3:21 PM CDT Denise Davila MD LAB_1 Performing Organization Address [facility]/ZIP Co de Phone Number [facility] [address] [place], [place] [address] * Sedimentation Rate (ESR) (12/18/2023 3:21 PM CDT) [facility] Sedimentation Rate 12 0 - 20 mm/hr 12/18/2023 3:55 PM CDT [facility] Blood Venipuncture / Unknown 12/18/2023 3:21 PM CDT 12/18/2023 3:21 PM CDT Denise Davila MD LAB_1 Performing Organization Address City/[facility]/ZIP Co de Phone Number [facility] [address] [place] [phone] * (ABNORMAL) C-Reactive Protein (12/18/2023 3:21 PM CDT) [facility] C-Reactive Protein 1.4(H) 0.0 - 0.5 mg/dL 12/18/2023 5:10 PM T [facility] Blood Venipuncture / Unknown 12/18/2023 3:21 PM CDT 12/18/2023 3:21 PM CDT Denise Davila MD LAB_1 [facility] [address] [place] [address] * (ABNORMAL) Protein ELP (Serum) (12/18/2023 3:21 PM CDT) Total Protein 6.9 6.4 - 8.3 g/dL 12/20/2023 10:36 AM T [facility] Albumin 4.3 3.4 - 4.8 g/dL 12/20/2023 10:36 AM T [facility] Alpha 1 0.4 0.2 - 0.5 g/dL 12/20/2023 10:36 AM T [facility] Alpha 2 0.9 0.5 - 1.1 g/dL 12/20/2023 10:36 AM T [facility] Beta 0.7 0.6 - 1.1 g/dL 12/20/2023 10:36 AM [facility] Gamma 0.6(L) 0.7 - 1.6 g/dL 12/20/2023 10:36 AM [facility] Monoclonal Vahid 0.0 <=0.0 g/dL 12/20/2023 10:36 AM [facility] Interpretation Borderline hypogammaglobuli nemia. Consider urine immunofixation to rule out Bence Orozco proteinuria. 12/20/2023 10:36 AM [facility] Signed Out By [facility] 12/20/2023 10:36 AM [facility] Blood Venipuncture / Unknown 12/18/2023 3:21 PM CDT 12/18/2023 3:21 PM CDT Denise Davila MD LAB_1 [facility] [address] [place] [address], [facility] documented in this encounter Visit Diagnoses Diagnosis Arthralgia, unspecified joint documented in this encounter Care Teams Personal Injury Litigation Paralegal Relationship Specialty Start Date End Date Clinician, Not Found, [place] [address] PCP - General 03/01/18 documented as of this encounter
--- OUTSIDE RECORDS SUMMARY | 2023-12-28 09:03 | XMS_ITS | Clinical Summary ---
Author Name Unknown Organization [facility] Address [place], [place] [address] Care Team Providers Care Banquet Chef Name Role Phone Tamera Newton MD Primary [...] right foot with fat layer exposed (HC) [phone] Squared Toe Post OP Shoe, Small 1 [...] Encounters Date Type Department Care Team Description 12/12/2023 11:30 AM CDT Office Visit [facility] [address] [place] [address] Toney Winchester DPM Ulcer (Follow up-right foot) 12/12/2023 Travel 11/28/2023 1:00 PM CDT Office Visit [facility] [address] [place] [address] Toney Winchester DPM Ulcer (Follow up-right foot) 11/28/2023 Travel 11/14/2023 2:45 PM CDT Office Visit [facility] [address] [place] [address] Toney Winchester DPM Follow Up (Right ulcer , 3 week follow up) 11/14/2023 Travel 10/24/2023 11:00 AM CDT Office Visit [facility] [address] [facility] [address] Toney Winchester DPM Consult (Right foot wound [...] Zoster (Shingrix-RZV, recombinant) 10/18/2018, Zoster (Zostavax-ZVL, live) 07/01/2009,08/20/200 9 Family History Medical History Relation Name [...] Pressure 156/71 11/14/2023 3:03 PM CDT Pulse 107 12/12/2023 11:36 AM CDT Temperature 36.8 ??C (98.2 ??F) 10/19/2021 12:[address] Respiratory Rate 16 10/19/2021 12:29 PM [employer] T[employer] Oxygen Saturation 100% 12/12/2023 11:36 AM CDT Inhaled Oxygen Concentration - - Weight 66.2 kg (146 lb) 12/12/2023 11:36 AM CDT Height 162.6 cm (5' 4) 10/18/2021 7:55 AM [employer] Body Mass Index 25.06 10/18/2021 7:55 AM [employer] Plan of Treatment Health Maintenance Due Date [...] 09/24/2019, 03/26/2009 Medical Devices Implanted Type Area Plastic Manager Device Identifier Shelf Expiration Date Model / Serial / Lot Simplex P Bone Cement - Half Dose Implanted:Qty: 2 on 10/18/2021 by Kevin Hogue MD at [facility] Left: Knee [employer] 07/12/2023 / 6188-1-001 / [id number] [employer]lon Femoral Posterior Augment Implanted:Qty: 1 on 10/18/2021 by Kevin Hogue MD at [facility] Left: Knee [employer] 06/01/2025 / 5543-A-400 / [id number] Simplex P Bone Cement Full Dose Implanted:Qty: 2 on 10/18/2021 by Kevin Hogue MD at [facility] Left: Knee [employer] 09/12/2023 / 6191-1-001 / [id number] Triathlon Fluted Stem - Tibia Implanted:Qty: 1 on 10/18/2021 by Kevin Hogue MD at [facility] Left: Knee [employer] 10/09/2025 / [id number]-[id number]-011 / [id number] Triathlon Tritanium Tibial Symmetric Cone Augment Implanted:Qty: 1 on 10/18/2021 by Kevin Hogue MD at [facility] Left: Knee [employer] 05/04/2026 / 5549-A-130 / [id number] Triathlon Total Knee [place] Tibial Baseplate Implanted:Qty: 1 on 10/18/2021 by Kevin Hogue MD at [facility] Left: Knee [employer] 12/19/2025 / 5521-B-400 / [id number] Triathlon Fluted Stem - Femur Implanted:Qty: 1 on 10/18/2021 by Kevin Hogue MD at [facility] Left: Knee [employer] 06/15/2025 / [id number]-[id number]-016 / [id number] Triathlon Total Stabilizer Femoral Component Implanted:Qty: 1 on 10/18/2021 by Kevin Hogue MD at [facility] Left: Knee [employer] 01/16/2026 / 5512-F-401 / [id number] Triathlon X3 Total Stablizer+ Tibial Insert Implanted:Qty: 1 on 10/18/2021 by Kevin Hogue MD at [facility] Left: Knee [employer] 08/31/2026 / 5537-G-416 -E / [id number] Triathlon Femoral Posterior Augment Implanted:Qty: 1 on 10/18/2021 by Kevin Hogue MD at [facility] Left: Knee [employer] 09/05/2025 / 5543-A-400 / [id number] Advance Directives Documents on File Type Date Recorded Patient Shipping Processor Expl anation Healthcare Directive 10/20/2021 8:51 AM [...] Preferences, Provider to review later Care Teams Banquet Chef Relationship Specialty Start Date End Date Tamera Newton MD [address] [place] [address] PCP - General Family Practice 10/24/23
--- OUTSIDE RECORDS SUMMARY | 2023-12-28 09:03 | XMS_ITS | Encounter Summary ---
Author Name Unknown Organization [facility] Address [address] [place] [address] Care Team Providers Care Crnp Name Role Phone Clinician, Not Found MD Primary Care Provider Un available Reason for Visit * Reason Comments Refill Encounter Details Date Type Department Care Team (Late st Contact Info) Description 11/13/2023 Refill [facility] [address] [place] [address] Denise Davila MD [address] [place], [place] [phone] Refill Social History Tobacco Use Types Packs/Day [...] Info) Description 01/15/2024 2:30 PM CDT Appointment [facility] [address] [place] [address] Denise Davila MD [address] [place] [address] 04/25/2024 11:45 AM CDT Appointment [facility] [address] [place] [address] [place] [address] [place] [address] documented as of this encounter Visit Diagnoses Diagnosis Osteoarthritis of multiple joints, unspecified osteoarthritis type documented in this encounter Care Teams Crnp Relationship Specialty Start Date End Date Clinician, Not Found, [place] [address] PCP - General 03/01/18 documented as of this encounter
--- OUTSIDE RECORDS SUMMARY | 2023-12-28 09:03 | XMS_ITS | Encounter Summary ---
Author Name Unknown Organization [facility] Address [address] [place] [address] Care Team Providers Care Ballistics Expert Forensic Name Role Phone Clinician, Not Found MD Primary Care Provider Un available Reason for Visit * Reason Comments Follow-up Encounter Details Date Type Department Care Team (Late st Contact Info) Description 12/18/2023 2:30 PM CDT Office Visit [facility] [address] [place], [place] [address] Denise Davila MD [address] [place], [place] [phone] Chronic tophaceous gout (Primary Dx); Osteoarthritis of multiple joints, unspecified osteoarthritis type; Arthralgia, unspecified joint Social History Tobacco Use [...] Pulse 77 12/18/2023 2:24 PM CDT Temperature - - Respiratory Rate - - Oxygen Saturation - - Inhaled Oxygen Concentration - - Weight 70.3 kg (155 lb) 12/18/2023 2:24 PM CDT Height - - Body Mass Index 25.99 03/29/2018 9:30 AM CDT documented in this encounter Patient Instructions * Patient Instructions* Denise Davila MD - 12/18/2023 2:30 PM CDT Have the results of the recent tests forwarded to me to review. I will take a look at those results compared to the results today and I will guide you as to how toreduce prednisone. Stay at 20 mg/d for now. Go to pharmacy: calcium 600 mg/vitamin D 400 unit (10 mg) combined tab: 1 tab twice a day with meals. documented in this encounter Progress Notes * Denise Davila MD - 12/18/2023 2:30 PM CDT SUBJECTIVE: Follow-up for chronic tophaceous gout, osteoarthritis multiple joints. History of present illness: This is a 6-month follow-up for the patient. She currently takes allopurinol 200 mg a day. At this dose, it kept her uric acid down to 3.6. Her tophi have resolved completely and she has been clinically gout free. She was doing well in her usual health until approximately 5-6 weeks ago when she started noticing aching and stiffness over the shoulder girdles, thighs and knee areas. They were quite troublesome especially at nighttime and when she woke up in the morning. The morning stiffness lasted several hours. She was evaluated with her primary care provider in the [facility]. She was told to have elevated sedimentation rate but the number was not recalled. I asked the patient to have the test results faxed to me to review. She was suspected of having polymyalgia rheumatica for which prednisone 20 mg a day was provided. She has been at this dose for the past 17 days. According to her, it took almost a week before she started feeling significant improvement. She rates improvement proximally 75%. There was no associated significant swollen joint. She also has no cranial symptoms to suggest temporal arteritis. She has been afebrile. No reduced appetite. She has gained a few lb since she was started on prednisone. Past medical history, family and social history, current medications and adverse reactions were updated in EMR. Physical exams: BP (!) 151/80 (BP Location: Right Arm, BP Cuff Size: Large) Pulse 77 Wt 155 lb (70.3 kg) BMI 25.99 kg/m?? General appearance: An elderly female who was not in acute physical distress. Skin: No tophi or swollen extremities. Musculoskeletal exams: All 4 extremities were examined. The areas over temporal arteries were neither prominent nor tender. Osteoarthritic changes finger knuckles. No significant synovitis/inflammatory arthritis in any joints. No limited range of motion of both shoulder joints. Assessment and plan: 1. Clinically suspected polymyalgia rheumatica. 2. Chronic tophaceous gout-therapeutic serum uric acid with resolution of the tophi. 3. Generalized osteoarthritis. The patient reported symptoms which were consistent with polymyalgia rheumatica. I asked the patient to faxed me the recent results of the tests to review. I will also repeat her sed rate and CRP andwill add rheumatoid factor/CCP, and serum protein electrophoresis today. She will continue prednisone 20 mg a day in the meantime. I will compare test results from both times and will correspond backto her as well as the instruction of prednisone tapering. Counseled the patient about PMR cranial symptoms of temporal arteritis potential complication related to long-term use of prednisone and complications of having blindness related to temporal arteritis. If she has cranial symptoms related to temporal arteritis at any time, she will start taking prednisone 60 mg a day and will inform me. I will also suggest taking calcium 600 mg/vitamin-D 400 unit combination tablet: 1 tablet twice a day with meals. I am planning to order bone density for her in the near future. Her chronic tophaceous gout is under good control and she will continue allopurinol 200 mg a day. She is updated with annual influenza and pneumococcal vaccines. I suggest a close clinical follow up again in 4 weeks. documented in this encounter Plan of Treatment Upcoming Encounters Date Type Department Care Team (Late st Contact Info) Description 01/15/2024 2:30 PM CDT Appointment [facility] [address] [place] [address] Denise Davila MD [address] [place] [address] 04/25/2024 11:45 AM CDT Appointment [facility] [address] [place] [address] Denise Davila MD [address] [place], [place] [phone] documented as of this encounter Results * CCP Antibody (12/18/2023 3:21 PM CDT) [facility] Anti-CCP Antibody 0.5 0.0 - 6.9 U/mL 12/19/2023 1:00 PM CDT [facility] Anti-CCP Antibody Interpretation Negative Negative 12/19/2023 1:[address] [facility] Blood Venipuncture / Unknown 12/18/2023 3:21 PM CDT 12/18/2023 3:21 PM CDT Narrative [facility] - 12/19/2023 1:00 PM CDT This result was obtained with the Phadia 250. Quantitative results cannot be directly compared to other manufacturers' methods. Denise Davila MD LAB_1 [facility] [address] * Rheumatoid Factor, Quant (12/18/2023 3:21 PM CDT) Pathologist [facility] Rheumatoid Factor, Quantitative <15 <=30 IU/mL 12/18/2023 9:03 PM CDT [facility] Blood Venipuncture / Unknown 12/18/2023 3:21 PM CDT 12/18/2023 3:21 PM CDT Denise Davila MD LAB_1 [facility] [address] [place], [place] [address] * Sedimentation Rate (ESR) (12/18/2023 3:21 PM CDT) Pathologist [facility] Sedimentation Rate 12 0 - 20 mm/hr 12/18/2023 3:55 PM CDT [facility] Blood Venipuncture / Unknown 12/18/2023 3:21 PM CDT 12/18/2023 3:21 PM CDT Denise Davila MD LAB_1 Performing Organization Address [facility]/ZIP Co de Phone Number [address] [address] * (ABNORMAL) C-Reactive Protein (12/18/2023 3:21 PM CDT) Pathologist [facility] C-Reactive Protein 1.4(H) 0.0 - 0.5 mg/dL 12/18/2023 5:10 PM CDT [facility] Blood Venipuncture / Unknown 12/18/2023 3:21 PM CDT 12/18/2023 3:21 PM CDT Denise Davila MD LAB_1 Performing Organization Address [facility]/ZIP Co de Phone Number [address] [phone] * (ABNORMAL) Protein ELP (Serum) (12/18/2023 3:21 PM CDT) Pathologist [facility] Total Protein 6.9 6.4 - 8.3 g/dL 12/20/2023 10:36 AM CDT [facility] Albumin 4.3 3.4 - 4.8 g/dL 12/20/2023 10:36 AM CDT [facility] Alpha 1 0.4 0.2 - 0.5 g/dL 12/20/2023 10:36 AM CDT [facility] Alpha 2 0.9 0.5 - 1.1 g/dL 12/20/2023 10:36 AM CDT [facility] Beta 0.7 0.6 - 1.1 g/dL 12/20/2023 10:[address] [facility] Gamma 0.6(L) 0.7 - 1.6 g/dL 12/20/2023 10:[address] [facility] Monoclonal Vahid 0.0 <=0.0 g/dL 12/20/2023 10:[address] [facility] Interpretation Borderline hypogammaglobuli nemia. Consider urine immunofixation to rule out Bence Orozco proteinuria. 12/20/2023 10:36 AM CDT [facility] Signed Out By [facility] 12/20/2023 10:[address] [facility] Blood Venipuncture / Unknown 12/18/2023 3:21 PM CDT 12/18/2023 3:21 PM CDT Denise Davila MD LAB_1 Performing Organization Address City/State/[facility] Co de Phone Number [facility] [address] documented in this encounter Visit Diagnoses Diagnosis Chronic tophaceous gout- Primary Chronic gouty arthropathy with tophus (tophi) Osteoarthritis of multiple joints, unspecified osteoarthritis type Arthralgia, unspecified joint documented in this encounter Care Teams Ballistics Expert Forensic Relationship Specialty Start Date End Date Clinician, Not Found, [place] [address] PCP - General 03/01/18 documented as of this encounter
== END 2023-12-28 08:55 | disposition home or self-care (01) ==
LOC: RAD 09:00
PROVIDERS: PCP Family Medicine; Visit Provider Family Medicine
DX: I48.91 Unspecified atrial fibrillation (principal); I35.1 Nonrheumatic aortic (valve) insufficiency; I07.1 Rheumatic tricuspid insufficiency; I51.7 Cardiomegaly; R01.1 Cardiac murmur, unspecified
CPT/HCPCS: 93306

== ENCOUNTER 2023-12-28 09:55 | Emergency (ER) | payer MEDICARE, OTHER, SELFPAY ==
[2023-12-28] VITALS (9 sets, daily range): BP systolic 118–137; BP diastolic 73–94; PULSE 89–129; RESP 12–20; TEMP 37.1; O2SAT 94–99; BMI 25.9
--- NOTE | 2023-12-28 11:04 | ED.GENADULT ---
HPI - General Adult General Chief complaint: Arrhythmia/Palpitations Stated complaint: heart related issues Time Seen by Provider: 12/28/23 11:04 History of Present Illness HPI narrative: come over from echo. told she was in afib. declines sob at rest, sob with activity. 83-year-old woman presenting to the emergency department after receiving echocardiogram. Reason a she recounts that to me that she was getting the echocardiogram is that she has been increasingly short of breath with exertion. She does acknowledge known atrial fibrillation. Says her heart rate goes up and down. My understanding on initial evaluation is that she was noted to be in atrial fibrillation therefore sent from echo. Feels fine at rest at this time. No fever. No cough or cold symptoms. She is not feeling short of breath at this time. No unusual weight gain. No chest pain. Review of records shows normal labs week ago other than elevated transaminases and CK? Was increased from 12.5 to 25 mg of metoprolol for rate control of RVR. Has consulted with Cardiology as well. She is taking apixaban. Related Data Home Medications ?Medication ?Instructions ?Recorded ?Confirmed allopurinol 100 mg tablet 200 mg PO QDAY 10/02/22 01/17/24 calcium carbonate 600 mg-vitamin 1 tab PO QDAY 12/26/23 01/17/24 D3 20 mcg (800 unit) tablet (Caltrate with Vitamin D3) mecobalamin (vitamin B12) 1,000 1,000 mcg PO QDAY 12/26/23 01/17/24 mcg chewable tablet prednisone 20 mg tablet See Rx Instructions PO QDAY 12/26/23 01/17/24 metoprolol succinate 25 mg 50 mg PO QDAY 01/17/24 tablet,extended release 24 hr Previous Rx's ?Medication ?Instructions ?Recorded furosemide 20 mg tablet 20 mg PO .Daily as needed PRN 07/24/22 edema #30 tabs triamcinolone acetonide 0.1 % 1 applic topical BID #30 grams 03/07/23 topical cream amlodipine 5 mg tablet 5 mg PO DAILY #90 tabs 08/16/23 atorvastatin 40 mg tablet 40 mg PO .Bedtime #90 tabs 08/16/23 chlorthalidone 25 mg tablet 25 mg PO DAILY #90 tabs 08/16/23 levothyroxine 75 mcg tablet 75 mcg PO DAILY #90 tabs 08/16/23 lisinopril 40 mg tablet 40 mg PO DAILY #90 tabs 08/16/23 omeprazole 20 mg capsule,delayed 20 mg PO DAILY #90 caps 08/16/23 release Allergies Allergy/AdvReac Type Severity Reaction Status Date / Time propoxyphene Allergy Severe Weakness Verified 01/17/24 11:00 Review of Systems Status of ROS: Reports: 6 or more systems reviewed and unremarkable except as noted in History and below [facility] Medical History Elevated CK ?R74.8 - Abnormal levels of other serum enzymes (ICD-10) Shoulder pain, bilateral ?M25.511 - Pain in right shoulder (ICD-10) ?M25.512 - Pain in left shoulder (ICD-10) Polymyalgia rheumatica (11/30/23) ?M35.3 - Polymyalgia rheumatica (ICD-10) Diarrhea (01/07/23) ?R19.7 - Diarrhea, unspecified (ICD-10) Eczema ?L30.9 - Dermatitis, unspecified (ICD-10) GERD (gastroesophageal reflux disease) ?K21.9 - Gastro-esophageal reflux disease without esophagitis (ICD-10) Normal coronary angiogram Rheumatoid arthritis (2008) ?M06.9 - Rheumatoid arthritis, unspecified (ICD-10) Restless legs syndrome ?G25.81 - Restless legs syndrome (ICD-10) Hypothyroidism ?E03.9 - Hypothyroidism, unspecified (ICD-10) Hypertension ?I10 - Essential (primary) hypertension (ICD-10) Hyperlipidemia (03/26/09) ?E78.5 - Hyperlipidemia, unspecified (ICD-10) Edema ?R60.9 - Edema, unspecified (ICD-10) Surgical History Adenomatous colon polyp (03/20/23) ?D12.6 - Benign neoplasm of colon, unspecified (ICD-10) History of endoscopy (03/20/23) ?Z98.890 - Other specified postprocedural states (ICD-10) 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) ?Z96.651 - Presence of right artificial knee joint (ICD-10) History of revision of total knee arthroplasty (~10/19/21) ?Z96.659 - Presence of unspecified artificial knee joint (ICD-10) History of total left knee replacement (1999) ?Z96.652 - Presence of left artificial knee joint (ICD-10) History of total right knee replacement (1994) ?Z96.651 - Presence of right artificial knee joint (ICD-10) H/O hysterectomy with oophorectomy (1972) H/O lumpectomy (1972) ?Z98.890 - Other specified postprocedural states (ICD-10) H/O cataract extraction (~2013) ?Z98.49 - Cataract extraction status, unspecified eye (ICD-10) H/O foot surgery ?Z98.890 - Other specified postprocedural states (ICD-10) History of tonsillectomy (194) ?Z90.89 - Acquired absence of other organs (ICD-10) History of appendectomy (1956) ?Z90.49 - Acquired absence of other specified parts of digestive tract (ICD-10) Family History Brother Cancer of kidney, Onset Age: 57 Mother Stroke, Onset Age: 87 Father Myocardial infarction Heart disease, Onset Age: 78 Sister Stroke, Onset Age: 85 Cancer of kidney Brother Cancer of kidney, Onset Age: 76 Social History Narrative: , 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, 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 former smoker-quit around 1970 3 alcoholic drinks a week No formal exercise but cleans house uses stairs regularly Smoking Status: Former smoker What tobacco products do you use: cigarettes Smoking quit date/years: >15 years ago Do you use any of these nicotine containing products: None How often do you have a drink containing alcohol: 4 or more times a week Alcohol type: wine How many standard drinks containing alcohol do you have on a typical day: 1 or 2 How often do you have six or more drinks on one occasion: Never AUDIT-C Alcohol total score: 4 Non-prescribed substance use: denies use Caffeine: Yes (coffee, 1 cup/AM) Little interest or pleasure in doing things: not at all Feeling down, depressed, or hopeless: not at all Exam Narrative: Exam Narrative: Very pleasant. NAD. Skin is warm and dry. Well-perfused peripherally. She has mild pretibial pitting. Lungs are clear. Breathing easily. Conversing easily. Trying to deal with her hearing aid is a little hard of hearing Heart is elevated rate noted to be 110 on arrival. She is irregularly irregular. No JVD. No murmur noted. Abdomen is soft nontender. Const: Vital Signs, click to edit/add: Vital Signs - 24 hr 12/28/23 10:07 Pulse Rate [Right] 110 H Respiratory Rate 20 Blood Pressure [Ri ght Upper Arm] 124/73 Pulse Oximetry 97 Oxygen Delivery Me thod Room Air Documenting provider has reviewed patient's vital signs: yes Course Vital Signs Vital signs: Initial Vital Signs Pulse Rate 110 H 12/28/23 10:07 Pulse Rhythm Irregular 12/28/23 10:07 Respiratory Rate 20 12/28/23 10:07 Blood Pressure 124/73 12/28/23 10:07 Blood Pressure Mean 90 12/28/23 10:07 Blood Pressure Position Sitting 12/28/23 10:07 Pulse Oximetry 97 12/28/23 10:07 Oxygen Delivery Method Room Air 12/28/23 10:07 Vital Signs Pulse Rate 110 H 12/28/23 10:07 Respiratory Rate 20 12/28/23 10:07 Blood Pressure 124/73 12/28/23 10:07 Pulse Oximetry 97 12/28/23 10:07 Oxygen Delivery Method Room Air 12/28/23 10:07 Temperature 98.7 F 12/28/23 15:36 Pulse Rate 90 12/28/23 15:36 Respiratory Rate 12 12/28/23 15:36 Blood Pressure 124/73 12/28/23 15:36 Pulse Oximetry 99 12/28/23 15:00 Oxygen Delivery Method Room Air 12/28/23 10:07 Medical Decision Making MDM Narrative Medical decision making narrative: I am a little unclear as to why she was sent to this emergency department from echocardiogram at this point. Will try to clarify this and proceed further at that time. Seems well otherwise with nothing new going on as far as I can tell. EKG reviewed by me showing atrial fibrillation with RVR. Right bundle. Rate of 108 EKG looks similar to 2 weeks ago Did discuss further with spa technician. Reviewed available report. Noting heart rate was 130 at the time. She has normal LV size and thickness with EF of 55-60%. Marked mitral stenosis and severely enlarged left atrium increased pulmonary pressures. Was particularly notable for check admission as that was extremely exhausted with any ambulation as well. Wonder some of this fatigue could be a PMR flare? Will repeat recent labs. Chest x-ray. For further evidence of heart failure/pulmonary congestion. Road test. White count little bit elevated. ProBNP of 7700. Magnesium is low normal Chest x-ray reviewed by me seems to have somewhat patchy infiltrates not sure this represents a pneumonia. Radiology over-read as below Study:?XRay-Chest 1 VIEW PORTABLE-12/28/2023 12:41:46 PM Ordering Physician:CAMILA Final Report: INDICATION: Fatigue, dyspnea on exertion COMPARISON: None TECHNIQUE: Single view study FINDINGS: TUBES AND LINES: None. HEART AND MEDIASTINUM: Mildly enlarged heart. LUNGS AND PLEURAL SPACES: Mild patchy multifocal lung abnormality bilaterally, right greater than left.The 2 primary differential considerations are edema versus a diffuse inflammatory process OSSEOUS STRUCTURES: Age-appropriate appearance. No acute focal finding. IMPRESSION: Enlarged heart. Mild patchy multifocal lung abnormality bilaterally. Edema versus a diffuse inflammatory process Spoke to primary care provider. Pneumonia could explain the elevated white count. Also contributing to some mild exacerbation of heart failure potentially? and certainly some degree of tachycardia or worsening of her AFib rate Will try to do a better job of rate control with metoprolol. She may not tolerate quite such at dose at once. Splitting the dose might help control rate and be more tolerable. See patient discharge plan for further discussion/plan Medical Records Medical records reviewed: Yes I reviewed the patient's medical records Lab Data Lab results reviewed: Yes I reviewed the patient's lab results Labs: Lab Results 12/28/23 12/28/23 Range/Units 11:05 15:00 WBC 12.87 H (4.50-11.00) K/uL RBC 3.59 L (4.00-5.20) m/uL Hgb 11.9 L (12.0-16.0) gm/dL Hct 38.2 (33.0-51.0) % MCV 106 H (80-100) fL MCH 33 (26-34) pg MCHC 31 L (32-36) gm/dL RDW Coeff of Lindsey 15.8 H (11.5-15.5) % Plt Count 150 (140-440) K/uL Neut % (Auto) 90.6 H (42.0-72.0) % Lymph % (Auto) 6.7 L (20-44) % [place] % (Auto) 2.1 (0.0-11.0) % Eos % (Auto) 0.1 (0.0-7.0) % Baso % (Auto) 0.1 (0.0-3.0) % Neut # (Auto) 11.70 H (1.7-7.0) K/uL Lymph # (Auto) 0.90 (0.90-2.90) K/uL [place] # (Auto) 0.30 (0.00-0.90) K/UL Eos # (Auto) 0.00 (0.00-0.50) K/uL Baso # (Auto) 0.00 (0.00-0.30) K/uL Abs Immat Gran (auto) 0.10 (0.00-0.30) K/uL Imm/Tot Granulo (auto) 0.4 % Sodium 139 (135-149) mmol/L Potassium 4.5 (3.6-5.1) mmol/L Chloride 107 (96-114) mmol/L Carbon Dioxide 24 (20-32) mmol/L Anion Gap 8 (7-15) mEq/L BUN 49 H (7-30) mg/dL Creatinine 1.6 H (0.5-1.5) mg/dL Estimated Creat Clear 23.01 Estimated GFR 32 ml/min Glucose 115 (60-115) mg/dL Calcium 9.2 (8.4-10.6) mg/dL Magnesium 1.5 (1.5-2.6) mg/dL Troponin I < 0.01 L (0.01-0.04) ng/mL NT-Pro-B Natriuret Pep 7740 pg/mL Urine Color Yellow (Yellow) Urine Appearance Clear (Clear) Urine pH 6.5 (5.0-8.5) Ur Specific [place] 1.015 (1.000-1.030) Urine Protein Negative (Negative) Urine Glucose (UA) Negative (Negative) Urine Ketones Negative (Negative) Urine Blood Negative (Negative) Urine Nitrite Negative (Negative) Urine Bilirubin Negative (Negative) Urine Urobilinogen 0.2 (0.2-1.0) Ur Leukocyte Esterase Negative (Negative) Urine RBC 0-2 (0-2) Urine WBC 0-2 (0-5) Ur Squamous Epith Cells Few (None-Few) Urine Bacteria Moderate A (None) POC Troponin I 0.02 (0.01-0.04) ng/ml ECG Data Attestation: I personally reviewed and interpreted this ECG as follows: Discharge Plan Discharge Clinical Impression: Pneumonia, Atrial fibrillation with RVR Patient Disposition: Home, Self-Care Condition: Stable Additional Instructions: As discussed, take the metoprolol succinate 12.5 mg in the morning and 12.5 mg in the evening; just split your 25 mg pill. Doxycycline from [facility] is your antibiotic. Return for worsening and persistent shortness of breath, lightheadedness, chest pain. Follow-up with cardiology as planned. You might check in with your doctor next week if possible. Prescriptions: No Action furosemide 20 mg tablet 20 mg PO .Daily as needed PRN (Reason: edema) Qty: 30 3RF calcium carbonate-vitamin D3 [Caltrate with Vitamin D3] 600 mg-20 mcg (800 unit) tablet 1 tab PO QDAY mecobalamin (vitamin B12) 1,000 mcg tablet,chewable 1,000 mcg PO QDAY prednisone 20 mg tablet See Rx Instructions PO QDAY Rx Instructions: 25mg orally every day x2 weeks; then 20mg orally every day x2 weeks; then 17mg orally every day x2 weeks; then 15mg daily. metoprolol succinate 25 mg tablet extended release 24 hr 50 mg PO QDAY allopurinol 100 mg tablet 200 mg PO QDAY triamcinolone acetonide 0.1 % cream 1 applic topical BID Qty: 30 0RF amlodipine 5 mg tablet 5 mg PO DAILY Qty: 90 1RF atorvastatin 40 mg tablet 40 mg PO .Bedtime Qty: 90 1RF chlorthalidone 25 mg tablet 25 mg PO DAILY Qty: 90 1RF levothyroxine 75 mcg tablet 75 mcg PO DAILY Qty: 90 1RF lisinopril 40 mg tablet 40 mg PO DAILY Qty: 90 1RF omeprazole 20 mg capsule,delayed release(DR/EC) 20 mg PO DAILY Qty: 90 1RF Follow Up/Referrals: Tamera Newton MD [Primary Care Provider] - Stand Alone Forms: [employer] Info Instructions
--- NOTE | 2023-12-28 12:15 | XR_ITS ---
Patient: MIKE REYES Facility:?[facility] Patient ID:?[id number] Site Patient ID:?[id number]. Site :?[id number] Study:?XRay-Chest 1 VIEW PORTABLE-12/28/2023 12:41:46 PM Ordering Physician:CAMILA Final Report: INDICATION: Fatigue, dyspnea on exertion COMPARISON: None TECHNIQUE: Single view study FINDINGS: TUBES AND LINES: None. HEART AND MEDIASTINUM: Mildly enlarged heart. LUNGS AND PLEURAL SPACES: Mild patchy multifocal lung abnormality bilaterally, right greater than left.The 2 primary differential considerations are edema versus a diffuse inflammatory process OSSEOUS STRUCTURES: Age-appropriate appearance. No acute focal finding. IMPRESSION: Enlarged heart. Mild patchy multifocal lung abnormality bilaterally. Edema versus a diffuse inflammatory process Dictated by Carlo Barber MD @ 12/28/2023 2:16:22 PM Signed by:?Carlo Barber MD @12/28/2023 2:16:22 PM (Electronic Signature)
[2023-12-28 12:48] LABS: Basophils Percent Auto 0.1 % (0.0-3.0); Eosinophils Percent Auto 0.1 % (0.0-7.0); Hematocrit 38.2 % (33.0-51.0); Hemoglobin* 11.9 gm/dL (12.0-16.0); Immature Granulocytes Pct Auto 0.4 %; Lymphocytes Percent Auto 6.7 % (20-44); Mean Corpuscular HGB Conc 31 gm/dL (32-36); Mean Corpuscular Hemoglobin 33 pg (26-34); Mean Corpuscular Volume 106 fL (80-100); Monocytes Percent Auto 2.1 % (0.0-11.0); Neutrophils Percent Auto 90.6 % (42.0-72.0); Platelet Count* 150 K/uL (140-440); RDW Coefficient of Variation % 15.8 % (11.5-15.5); Red Blood Count 3.59 m/uL (4.00-5.20); White Blood Count* 12.87 K/uL (4.50-11.00)
[2023-12-28 12:51] LABS: Slide Review Reflex No
[2023-12-28 13:01] LABS: Chloride* 107 mmol/L (96-114); Potassium* 4.5 mmol/L (3.6-5.1); Sodium* 139 mmol/L (135-149)
[2023-12-28 13:04] LABS: Anion Gap 8 mEq/L (7-15); Blood Urea Nitrogen* 49 mg/dL (7-30); Carbon Dioxide* 24 mmol/L (20-32); Creatinine* 1.6 mg/dL (0.5-1.5); Est. Creatinine Clearance* 23.01; Estimated Glomerular Filt Rate 32 ml/min
[2023-12-28 13:05] LABS: Calcium* 9.2 mg/dL (8.4-10.6); Glucose* 115 mg/dL (60-115); Magnesium* 1.5 mg/dL (1.5-2.6)
[2023-12-28 13:17] LABS: NT Pro B Type NatriureticPept* 7740 pg/mL; Troponin I* < 0.01 ng/mL (0.01-0.04)
[2023-12-28 13:27] LABS: Troponin, Point-of-Care* 0.02 ng/ml (0.01-0.04)
[2023-12-28 15:06] LABS: Appearance Urine Clear (Clear); Bilirubin Urine Negative (Negative); Blood Urine Negative (Negative); Color Urine Yellow (Yellow); Glucose Urine Negative (Negative); Ketones Urine Negative (Negative); Leukocyte Esterase Urine Negative (Negative); Nitrite Urine Negative (Negative); Protein Urine Negative (Negative); Specific Gravity Urine 1.015 (1.000-1.030); Urobilinogen Urine 0.2 (0.2-1.0); pH Urine 6.5 (5.0-8.5)
[2023-12-28 15:16] LABS: Bacteria Urine Moderate; RBC Urine 0-2 (0-2); Squamous Epithelial Cell Urine Few (None-Few); WBC Urine 0-2 (0-5)
== END 2023-12-28 15:39 | disposition home or self-care (01) ==
PROVIDERS: Emergency Provider Family Medicine; PCP Family Medicine
DX: I48.20 Chronic atrial fibrillation, unspecified (principal); J18.9 Pneumonia, unspecified organism
CPT/HCPCS: 36415; 71045; 80048; 81001; 83735; 83880; 84484; 85025; 87086; 87186; 93306; 99284

== ENCOUNTER 2024-01-03 13:26 | Outpatient (CLI) | payer MEDICARE, OTHER, SELFPAY | END 2024-01-03 13:27 | disposition home or self-care (01) | LOC: NFLDREF 01-22 12:47 | PROVIDERS: PCP Family Medicine; Referring Provider Family Medicine; Visit Provider Family Medicine | DX: R79.89 Other specified abnormal findings of blood chemistry (principal); E78.5 Hyperlipidemia, unspecified | CPT/HCPCS: 80053; 82550; 82977; 83010 ==

== ENCOUNTER 2024-01-21 10:05 | Outpatient (CLI) | payer MEDICARE, OTHER, SELFPAY ==
--- OUTSIDE RECORDS SUMMARY | 2024-01-25 19:57 | XMS_ITS | Encounter Summary ---
Author Organization [facility] Address [address], [place] [address] Care Team Providers Care Optimization Engineer Name Role Phone Clinician, Not Found MD Primary Care Provider Un available Encounter Details Date Type Department Care Team (Latest Contact Info) Description 01/02/2024 Orders Only HIM DEPARTMENT Provider, [place] [address] Social History Tobacco Use Types Packs/Day Years [...] Info) Description 02/26/2024 11:00 AM CDT Appointment [facility] [address] [place] [address] Denise Davila MD [address] [place] [address] 04/25/2024 12:00 PM CDT Appointment [facility] [address] [place] [address] Denise Davila MD [address] [place] [address] documented as of this encounter Procedures Procedure Name Priority Date/Time Associated Diagnosis Comments LABORATORY REPORT 01/02/2024 documented in this encounter Results * LABORATORY REPORT (01/02/2024) Interface Provider DUMMY/OTHER/AR documented in this encounter Visit Diagnoses Not on filedocumented in this encounter Care Teams Optimization Engineer Relationship Specialty Start Date End Date Clinician, Not Found, [place] [address] PCP - General 03/01/18 documented as of this encounter
--- OUTSIDE RECORDS SUMMARY | 2024-01-25 19:57 | XMS_ITS | Encounter Summary ---
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 Procedures DXA Bone Density Spine/Hip Denise Davila MD [address] [place] [address] Referral ID Status Reason Start Date Expiration Date V isits Requested Visits Authorized [id number] Incomplete 01/15/2024 04/15/2025 1 1 Reason for Visit * Reason Comments Follow-up Encounter Details Date Type Department Care Team (Late st Contact Info) Description 01/15/2024 2:30 PM CDT Office Visit [facility] [address] [place] [address] Denise Davila MD [address] [place], [place] [id number] PMR (polymyalgia rheumatica) (HRC) (Primary Dx); Chronic tophaceous gout; Osteoarthritis of multiple joints, unspecified osteoarthritis type; 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 She is about to see her dye tub tender in 2 days. 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 Expected: 01/15/2024 (Approximate), Expires: 01/14/2025 documented as of this encounter Results * (ABNORMAL) Creatinine / GFR (01/11/2024 10:22 AM CDT) Creatinine 1.79(H) 0.55 - 1.02 mg/dL 01/15/2024 5:35 PM CDT [facility] GFR, Estimated 28(L) >60 mL/min/1.7 3m2 01/15/2024 5:35 PM CDT [facility] Blood Venipuncture / Unknown 01/11/2024 10:22 AM CDT 01/11/2024 10:22 AM CDT Denise Davila MD LAB_1 [facility] [address] [place] [address], [facility] documented in this encounter Visit Diagnoses Diagnosis PMR (polymyalgia rheumatica) (HRC)- Primary Polymyalgia rheumatica 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
--- OUTSIDE RECORDS SUMMARY | 2024-01-25 19:57 | XMS_ITS | Encounter Summary ---
Author Organization [facility]isticsE[facility] CenterRenew[facility] Funding Address [address] [address] Care Team Providers Care Picker And Sorter Load And Unload Name Role Phone Clinician, Not Found MD Primary Care Provider Un available Encounter Details Date Type Department Care Team (Late st Contact Info) Description 12/20/2023 Notes/Orders [place] [address] [place] [address]. [place] [address] Denise Davila MD [address] [place] [id number] Arthralgia, unspecified joint (Primary Dx); PMR (polymyalgia [...] 7:43 AM CDT Received outside records from [facility]: Based on the outside record notes, [...] prednisone (5-mg tablet) to her local pharmacy ([facility], not the [facility] script) so that she can follow this [...] Info) Description 02/26/2024 11:00 AM CDT Appointment [facility] [address] [place] [address] [place] [address] [place] [phone] 04/25/2024 12:00 PM CDT Appointment [facility] [address] [place] [address] Denise Davila MD [address] [place], [place] [address] Scheduled Orders Name Type Priority Associated Diagnoses Orde r Schedule C-Reactive Protein Lab Routine PMR (polymyalgia rheumatica) (HRC) 12 Occurrences starting 12/20/2023 until 12/19/2024, 1 completed Sedimentation Rate (ESR) Lab Routine PMR (polymyalgia rheumatica) ([facility]) 12 Occurrences starting 12/20/2023 until 12/19/2024, 1 completed documented as of this encounter Results * Sedimentation Rate (ESR) (01/11/2024 10:22 AM CDT) Sedimentation Rate 3 0 - 20 mm/hr 01/11/2024 11:05 AM CDT [facility] Blood Venipuncture / Unknown 01/11/2024 10:22 AM CDT 01/11/2024 10:22 AM CDT Denise Davila MD LAB_1 [facility] [address] [place] [address] * C-Reactive Protein (01/11/2024 10:22 AM CDT) [facility] C-Reactive Protein <0.5 0.0 - 0.5 mg/dL 01/11/2024 11:45 AM CDT [facility] Blood Venipuncture / Unknown 01/11/2024 10:22 AM CDT 01/11/2024 10:22 AM CDT Denise Davila MD LAB_1 Performing Organization Address City/[facility]/ZIP Co de Phone Number [facility] [address] [place] [address], [facility] * CK, Total (12/18/2023 3:21 PM CDT) [facility] CK, Total 65 29 - 168 U/L 12/20/2023 10:[address] [facility] Blood Venipuncture / Unknown 12/18/2023 3:21 PM CDT 12/18/2023 3:21 PM CDT Denise Davila MD LAB_1 [facility] [address] documented in this encounter Visit Diagnoses Diagnosis Arthralgia, unspecified joint- Primary PMR (polymyalgia rheumatica) (HRC) Polymyalgia rheumatica documented in this encounter Care Teams Picker And Sorter Load And Unload Relationship Specialty Start Date End Date Clinician, Not Found, [place] [address] PCP - General 03/01/18 documented as of this encounter
--- OUTSIDE RECORDS SUMMARY | 2024-01-25 19:57 | XMS_ITS | Encounter Summary ---
Author Organization [employer] Address [address], [place] [address] Care Team Providers Care Tourist Escort Name Role Phone Clinician, Not Found MD Primary Care Provider Un available Reason for Visit * Reason Comments PHONE CALL TO PATIENT Encounter Details Date Type Department Care Team (Late st Contact Info) Description 12/19/2023 Telephone [place] [phone] Rheumatology [facility] [place], [place] [phone] Denise Davila MD [facility] [place], [place] [phone] PHONE CALL TO PATIENT Social History Tobacco [...] Sharita Henao - 12/19/2023 2:22 PM CDT [facility] records received and placed in your inbox in [employer]. * Suri Stovall RN - 12/19/2023 10:24 AM CDT Spoke to patient, relaying provider's message below. Patient states that she notified the clinic yesterday to have results faxed over to us but she will reach out to them again today. * Denise Davila MD - 12/19/2023 9:59 AM CDT Please call to remind her to have outside records (from [facility]) and lab results faxed to me to review documented in this encounter Plan of Treatment Upcoming Encounters Date Type Department Care Team (Late st Contact Info) Description 02/26/2024 11:00 AM CDT Appointment [facility] [address] [place] [address] Denise Davila MD [address] [place] [address] 04/25/2024 12:00 PM CDT Appointment [facility] [address] [place] [address] Denise Davila MD [address] [place] [address] documented as of this encounter Visit Diagnoses Not on filedocumented in this encounter Care Teams Tourist Escort Relationship Specialty Start Date End Date Clinician, Not Found, [place] [address] PCP - General 03/01/18 documented as of this encounter
--- OUTSIDE RECORDS SUMMARY | 2024-01-25 19:57 | XMS_ITS | Clinical Summary ---
Author Organization [facility] Address [address] [address] Care Team Providers Care Travel Accommodation Inspector Name Role Phone Clinician, Not Found MD Primary Care Provider Un available Source Comments You are receiving this document as you are listed as the primary care provider,follow-up provider, or the patient has been referred to you for consultation.This is in compliance with the Medicare andBelle[facility] Hospitalcaid EHR Incentive Program,which states Providers who transition their patient to another setting of careor provider of care or refers their patient to another provider of care shouldprovide summary care record for each transition of care or referral. 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 Renal insufficiency 10/01/2020 Hyperuricemia 09/10/2020 S/P total knee arthroplasty, bilateral 8 S/P appendectomy 03/29/2018 Restless legs syndrome (RLS) 03/29/2018 Chronic left shoulder pain 03/29/2018 Psoriatic arthritis 03/29/2018 Sensorineural hearing loss 02/22/2005 Overview: LW Onset: 74Bhb08 ; Hearing Loss Sensorineural Undiagnosed cardiac murmurs 02/22/2005 Overview: LW Modifier: functional LW Onset: 18Qhm78 ; Heart Murmur Right bundle branch block 02/22/2005 Overview: LW Onset: 68Kra14 Obesity 05/04/2004 Overview: LW Onset: 93Cfq71 Essential hypertension 01/17/2003 Overview: Hypertension Hypothyroidism 01/17/2003 Overview: Hypothyroidism Acquired Osteoarthritis 01/17/2003 Overview: DJD Chronic kidney disease, stage 3b Encounters Date Type Department Care Team Description 01/15/2024 2:30 PM CDT Office Visit [facility] [address] [place] [address] Denise Davila MD PMR (polymyalgia rheumatica) (HRC) (Primary Dx); Chronic tophaceous gout; Osteoarthritis of multiple joints, unspecified osteoarthritis type; jail 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; Persistent atrial fibrillation (HRC) 01/11/2024 10:20 AM CDT Lab Visit [address] [address] PMR (polymyalgia rheumatica) (HRC); Chronic tophaceous gout 01/02/2024 Orders Only HIM DEPARTMENT ProviderErnie MD 12/27/2023 Notes/Orders [place] [address] [place] [address]. [place] [address] Denise Davila MD 12/20/2023 Notes/Orders [place] [address] [place] [address]. [place] [address] Denise Davila MD Arthralgia, unspecified joint (Primary Dx); PMR (polymyalgia rheumatica) (HRC) 12/19/[address] [place] [address] Denise Davila MD PHONE CALL TO PATIENT 12/18/2023 3:10 PM CDT Lab Visit [address] [address] Arthralgia, unspecified joint 12/18/2023 2:30 PM CDT Office Visit [address] [address] Denise Davila MD Chronic tophaceous gout (Primary Dx); Osteoarthritis of multiple joints, unspecified osteoarthritis type; Arthralgia, unspecified joint 11/13/[address] [address] Denise Davila MD Refill from Last 3 Months Immunizations Name Administration Dates Next Due Flu Vac Preserv Free (3+yrs) 04/21/2013, 04/28/2009,05/21/2006,2004,05/04/2004 Influenza IIV3 (Trivalent) F ramiro Jalloh, 65+ Yrs (720[address]) 06/15/2020,07/01/2019,05/27/2018,2017,05/30/2017,05/15/2016,04/28/2014 Influenza IIV4 (Quadrivalent ) Fluad, 65+ [...] Info) Description 02/26/2024 11:00 AM CDT Appointment [facility] [address] [place] [address] Denise Davila MD [address] [place] [address] 04/25/2024 12:00 PM CDT Appointment [facility] [address] [place], [place] [phone] Denise Davila MD [address] [place] [address] Health Maintenance Due Date Last Done Comments [...] Creatinine / GFR (01/11/2024 10:22 AM CDT) [facility] Creatinine 1.79(H) 0.55 - 1.02 mg/dL 01/15/2024 5:35 PM CDT [facility] GFR, Estimated 28(L) >60 mL/min/1.7 3m2 01/15/2024 5:35 PM CDT [facility] Blood Venipuncture / Unknown 01/11/2024 10:22 AM CDT 01/11/2024 10:22 AM CDT Denise Davila MD LAB_1 Performing Organization Address [facility] de Phone Number [facility] [address] [place] [address] * C-Reactive Protein (01/11/2024 10:22 AM CDT) Only the most recent of2 resultswithin the time period is included. C-Reactive Protein <0.5 0.0 - 0.5 mg/dL 01/11/2024 11:45 AM CDT [facility] Blood Venipuncture / Unknown 01/11/2024 10:22 AM CDT 01/11/2024 10:22 AM CDT Denise Davila MD LAB_1 Performing Organization Address [facility] Phone Number [facility] [id number] [place] [address] * Sedimentation Rate (ESR) (01/11/2024 10:22 AM CDT) Only the most recent of2 resultswithin the time period is included. Sedimentation Rate 3 0 - 20 mm/hr 01/11/2024 11:05 AM CDT [facility] Blood Venipuncture / Unknown 01/11/2024 10:22 AM CDT 01/11/2024 10:22 AM CDT Denise Davila MD LAB_1 Performing Organization Address [facility] de Phone Number [facility] [address] [place] [phone] * LABORATORY REPORT (01/02/2024) Interface Provider DUMMY/OTHER/AR * Sedimentation Rate (Ext Rslt) (12/21/2023 9:22 AM CDT) EXT RSLT - SED RATE (ESR) 18 1 - 20 mm/hr PN EXTERNAL LAB-SEE SCANNED DOCUMENT 12/21/2023 9:22 AM CDT Denise Davila MD LAB EXTERNAL R ESULT Performing Organization Address [facility] de Phone Number PN EXTERNAL LAB-SEE SCANNED DOCUMENT Do Not Mail * Creatinine (Ext Rslt) (12/21/2023 9:22 AM CDT) EXT RSLT - CREATININE 1.4 0.5 - 1.5 mg/dL PN EXTERNAL LAB-SEE SCANNED DOCUMENT 12/21/2023 9:22 AM CDT Denise Davila MD LAB EXTERNAL R ESULT Performing Organization Address [facility] de Phone Number PN EXTERNAL LAB-SEE SCANNED DOCUMENT Do Not Mail * Scanned result (Ext Rslt) (12/21/2023 9:22 AM CDT) Ext Rslt - Scanned CRP PN EXTERNAL LAB-SEE SCANNED DOCUMENT 12/21/2023 9:22 AM CDT Denise Davila MD LAB EXTERNAL R ESULT Performing Organization Address [facility] de Phone Number PN EXTERNAL LAB-SEE SCANNED DOCUMENT Do Not Mail * (ABNORMAL) AST (Ext Rslt) (12/21/2023 9:22 AM CDT) EXT RSLT - AST 181(H) 12 - 35 U/L PN EXTERNAL LAB-SEE SCANNED DOCUMENT 12/21/2023 9:22 AM CDT Denise Davila MD LAB EXTERNAL R ESULT Performing Organization Address [facility] de Phone Number PN EXTERNAL LAB-SEE SCANNED [...] - 6.9 U/mL 12/19/2023 1:00 PM CDT [facility] Anti-CCP Antibody Interpretation Negative Negative 12/19/2023 1:00 PM CDT [facility] Blood Venipuncture / Unknown 12/18/2023 3:21 PM CDT 12/18/2023 3:21 PM CDT Narrative [facility] - 12/19/2023 1:00 PM CDT This result was obtained with the Phadia 250. Quantitative results cannot be directly compared to other manufacturers' methods. Denise Davila MD LAB_1 Performing Organization Address [facility] de Phone Number [facility] [address] * (ABNORMAL) Protein ELP (Serum) (12/18/2023 3:21 PM CDT) Total Protein 6.9 6.4 - 8.3 g/dL 12/20/2023 10:36 AM CDT [facility] Albumin 4.3 3.4 - 4.8 g/dL 12/20/2023 10:36 AM CDT [facility] Alpha 1 0.4 0.2 - 0.5 g/dL 12/20/2023 10:36 AM CDT [facility] Alpha 2 0.9 0.5 - 1.1 g/dL 12/20/2023 10:36 AM CDT [facility] Beta 0.7 0.6 - 1.1 g/dL 12/20/2023 10:36 AM CDT [facility] Gamma 0.6(L) 0.7 - 1.6 g/dL 12/20/2023 10:36 AM CDT [facility] Monoclonal Vahid 0.0 <=0.0 g/dL 12/20/2023 10:36 AM CDT [facility] Interpretation Borderline hypogammaglobuli nemia. Consider urine immunofixation to rule out Bence Orozco proteinuria. 12/20/2023 10:36 AM CDT [facility] Signed Out By [facility] 12/20/2023 10:36 AM CDT [facility] Blood Venipuncture / Unknown 12/18/2023 3:21 PM CDT 12/18/2023 3:21 PM CDT Denise Davial MD LAB_1 [facility] [address] * Rheumatoid Factor, Quant (12/18/2023 3:21 PM CDT) Pathologist [facility] Rheumatoid Factor, Quantitative <15 <=30 IU/mL 12/18/2023 9:03 PM CDT [facility] Blood Venipuncture / Unknown 12/18/2023 3:21 PM CDT 12/18/2023 3:21 PM CDT Denise Davila MD LAB_1 [facility] [address] * CK, Total (12/18/2023 3:21 PM CDT) Pathologist [facility] CK, Total 65 29 - 168 U/L 12/20/2023 10:13 AM CDT [facility] Blood Venipuncture / Unknown 12/18/2023 3:21 PM CDT 12/18/2023 3:21 PM CDT Denise Davila MD LAB_1 [facility] [address] [address], [facility] from Last 3 Months Care Teams Travel Accommodation Inspector Relationship Specialty Start Date End Date Clinician, Not Found, [place] [address] PCP - General 03/01/18
--- OUTSIDE RECORDS SUMMARY | 2024-01-25 19:57 | XMS_ITS | Encounter Summary ---
Author Organization [employer] Address [address], [place] [address] Care Team Providers Care Drum Drier Operator Name Role Phone Clinician, Not Found MD Primary Care Provider Un available Encounter Details Date Type Department Care Team (Late st Contact Info) Description 12/27/2023 Notes/Orders [place] [address] [place] [address]. [place], [place] [phone] Denise Davila MD [facility] [place], [place] [phone] Social History Tobacco Use Types Packs/Day Years [...] also seen by her primary yesterday at [facility].She is scheduled to have imaging study of her liver and echocardiogram. I called her primary Dr. Newton at phone number [phone] to discuss about her condition. I still could not reach Dr. Chandler and left her phone number to call me back. documented in this encounter Plan of Treatment Upcoming Encounters Date Type Department Care Team (Late st Contact Info) Description 02/26/2024 11:00 AM CDT Appointment [facility] [address] [place] [address] [place] [address] [place] [address] 04/25/2024 12:00 PM CDT Appointment [facility] [address] [place] [address] Denise Davila MD [address] [place] [address] documented as of this encounter Visit Diagnoses Not on filedocumented in this encounter Care Teams Drum Drier Operator Relationship Specialty Start Date End Date Clinician, Not Found, [place] [address] PCP - General 03/01/18 documented as of this encounter
--- OUTSIDE RECORDS SUMMARY | 2024-01-25 19:57 | XMS_ITS | Encounter Summary ---
Author Organization [facility] Address [address], [place] [address] Care Team Providers Care Deputy Sheriff K9 Handler Name Role Phone Clinician, Not Found MD Primary Care Provider Un available Encounter Details Date Type Department Care Team (Late st Contact Info) Description 01/11/2024 10:20 AM CDT Lab Visit [facility] [address] [place], [place] [address] PMR (polymyalgia rheumatica) (HRC); Chronic tophaceous gout [...] Info) Description 02/26/2024 11:00 AM CDT Appointment [facility] [address] [place] [address] Denise Davila MD [facility][note 3] [place] [address] 04/25/2024 12:00 PM CDT Appointment [facility] [address] [place] [address] Denise Davila MD [address] [place] [address] documented as of this encounter Procedures Procedure [...] - 1.02 mg/dL 01/15/2024 5:35 PM CDT [facility] GFR, Estimated 28(L) >60 mL/min/1.7 3m2 01/15/2024 5:35 PM CDT [facility] Blood Venipuncture / Unknown 01/11/2024 10:22 AM CDT 01/11/2024 10:22 AM CDT Denise Davila MD LAB_1 Performing Organization Address [facility]/ZIP Co de Phone Number [facility] [address] [place] [address] * Sedimentation Rate (ESR) (01/11/2024 10:22 AM CDT) Sedimentation Rate 3 0 - 20 mm/hr 01/11/2024 11:05 AM CDT [facility] Blood Venipuncture / Unknown 01/11/2024 10:22 AM CDT 01/11/2024 10:22 AM CDT Denise Davila MD LAB_1 Performing Organization Address City/[facility]/ZIP Co de Phone Number 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
--- OUTSIDE RECORDS SUMMARY | 2024-01-25 19:58 | XMS_ITS | Encounter Summary ---
Author Organization [facility] Address [address] [place] [address] Care Team Providers Care Drivers' Cash Clerk Name Role Phone Clinician, Not Found MD Primary Care Provider Un available Encounter Details Date Type Department Care Team (Late st Contact Info) Description 12/18/2023 3:10 PM CDT Lab Visit [facility] [address] [place] [address] Arthralgia, unspecified joint Social History Tobacco Use [...] Info) Description 02/26/2024 11:00 AM CDT Appointment [facility] [address] [place] [address] Denise Davila MD [address] [facility] [place] [phone] 04/25/2024 12:00 PM CDT Appointment [facility] [address] [place] [address] Denise Davila MD [address] [place], [place] [phone] documented as of this encounter Procedures Procedure [...] CK, Total (12/18/2023 3:21 PM CDT) Pathologist [facility] CK, Total 65 29 - 168 U/L 12/20/2023 10:13 AM CDT [facility] Blood Venipuncture / Unknown 12/18/2023 3:21 PM CDT 12/18/2023 3:21 PM CDT Denise Davila MD LAB_1 [facility] [employer] [facility] [address] * CCP Antibody (12/18/2023 3:21 PM CDT) Pathologist [facility] Anti-CCP Antibody 0.5 0.0 - 6.9 U/mL 12/19/2023 1:00 PM CDT [facility] Anti-CCP Antibody Interpretation Negative Negative 12/19/2023 1:00 PM CDT [facility] Blood Venipuncture / Unknown 12/18/2023 3:21 PM CDT 12/18/2023 3:21 PM CDT Narrative [facility] - 12/19/2023 1:00 PM CDT This result was obtained with the Phadia 250. Quantitative results cannot be directly compared to other manufacturers' methods. Denise Davila MD LAB_1 [facility] [address] * Rheumatoid Factor, Quant (12/18/2023 3:21 PM CDT) Rheumatoid Factor, Quantitative <15 <=30 IU/mL 12/18/2023 9:03 PM CDT [facility] Blood Venipuncture / Unknown 12/18/2023 3:21 PM CDT 12/18/2023 3:21 PM CDT Denise Davila MD LAB_1 Performing Organization Address [facility]/ZIP Co de Phone Number [facility] [address] * Sedimentation Rate (ESR) (12/18/2023 3:21 PM CDT) [facility] Sedimentation Rate 12 0 - 20 mm/hr 12/18/2023 3:55 PM CDT [facility] Blood Venipuncture / Unknown 12/18/2023 3:21 PM CDT 12/18/2023 3:21 PM CDT Denise Davila MD LAB_1 [facility] [address] [place] [address] * (ABNORMAL) C-Reactive Protein (12/18/2023 3:21 PM CDT) Pathologist [facility] C-Reactive Protein 1.4(H) 0.0 - 0.5 mg/dL 12/18/2023 5:10 PM T [facility] Blood Venipuncture / Unknown 12/18/2023 3:21 PM CDT 12/18/2023 3:21 PM CDT Denise Davila MD LAB_1 [facility] [address] [place] [address] * (ABNORMAL) Protein ELP (Serum) (12/18/2023 3:21 PM CDT) Total Protein 6.9 6.4 - 8.3 g/dL 12/20/2023 10:36 AM T [facility]AL LAB Albumin 4.3 3.4 - 4.8 g/dL 12/20/2023 10:36 AM [facility] Alpha 1 0.4 0.2 - 0.5 g/dL 12/20/2023 10:36 AM T [facility] Alpha 2 0.9 0.5 - 1.1 g/dL 12/20/2023 10:36 AM T [facility] Beta 0.7 0.6 - 1.1 g/dL 12/20/2023 10:36 AM [facility] Gamma 0.6(L) 0.7 - 1.6 g/dL 12/20/2023 10:36 AM [facility] Monoclonal Vahid 0.0 <=0.0 g/dL 12/20/2023 10:36 AM [facility] Interpretation Borderline hypogammaglobuli nemia. Consider urine immunofixation to rule out Bence Orozco proteinuria. 12/20/2023 10:36 AM [facility] Signed Out By [facility] 12/20/2023 10:36 AM [facility] Blood Venipuncture / Unknown 12/18/2023 3:21 PM CDT 12/18/2023 3:21 PM CDT Denise Davila MD LAB_1 [employer] [facility] [address] [place], [place] [address] documented in this encounter Visit Diagnoses Diagnosis Arthralgia, unspecified joint documented in this encounter Care Teams Drivers' Cash Clerk Relationship Specialty Start Date End Date Clinician, Not Found, [place] [address] PCP - General 03/01/18 documented as of this encounter
--- OUTSIDE RECORDS SUMMARY | 2024-01-25 19:58 | XMS_ITS | Encounter Summary ---
Author Organization [facility] Address [address] [place] [id number] Care Team Providers Care Cutting And Printing Machine Operator Name Role Phone Clinician, Not Found MD Primary Care Provider Un available Reason for Visit * Reason Comments Refill Encounter Details Date Type Department Care Team (Late st Contact Info) Description 11/13/2023 Refill [facility] [address] [place], [place] [id number] Denise Davila MD [address] [place] [address] Refill Social History Tobacco Use [...] Info) Description 02/26/2024 11:00 AM CDT Appointment [facility] [address] [place] [address] Denise Davila MD [address] [place] [id number] 04/25/2024 12:00 PM CDT Appointment [facility] [address] [place] [address] Denise Davila MD [address] [place] [phone] documented as of this encounter Visit Diagnoses Diagnosis Osteoarthritis of multiple joints, unspecified osteoarthritis type documented in this encounter Care Teams Cutting And Printing Machine Operator Relationship Specialty Start Date End Date Clinician, Not Found, [place] [address] PCP - General 03/01/18 documented as of this encounter
--- OUTSIDE RECORDS SUMMARY | 2024-01-25 19:58 | XMS_ITS | Clinical Summary ---
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 0 5 01/24/20 24 Discontinued(* Patient states no longer taking) lisinopril (PRINIVIL; ZESTRIL) 40 mg tablet Take 1 tablet by mouth once daily. 0 5 Suspended omeprazole (PRILOSEC) 20 mg Delayed-Release capsule Take 1 capsule by mouth once daily before a meal. 0 5 Suspended cholecalciferol (VITAMIN D3) 2,000 unit capsule Take 2,000 units by mouth at bedtime. 0 5 01/24/20 24 Discontinued(P harmacist change per medication history (E-cancel not sent)) amLODIPine (NORVASC) 5 mg tablet Take 5 mg by mouth once daily. 7 Suspended atorvastatin (LIPITOR) 40 mg tablet Take 40 mg by mouth at bedtime. 0 9 Suspended chlorthalidone (HYGROTON) 25 mg tablet Take 1 tablet by mouth every morning. 0 9 Suspended levothyroxine (SYNTHROID) 75 mcg tablet Take 1 Tablet by mouth before breakfast. 2 Suspended furosemide (LASIX) 20 mg tablet Take 1 Tablet by mouth once daily if needed (edema). 1 01/24/20 24 Discontinued(* Patient states no longer taking) predniSONE (DELTASONE) 5 mg tablet Take 17.5 mg by mouth once daily. 2 Suspended methotrexate (RHEUMATREX) 2.5 mg tablet Take 1 Tablet by mouth every Sunday. 1 01/24/20 24 Discontinued(* Patient states no longer taking) folic acid 1 mg tablet Take 1 Tablet by mouth once daily. 1 01/24/20 24 Discontinued(* Patient states no longer taking) allopurinoL (ZYLOPRIM) 100 mg tablet Take 200 mg by mouth once daily. Suspended acetaminophen (TYLENOL EXTRA STRGTH) 500 mg tablet Take 1,000 mg by mouth at bedtime. Max acetaminophen dose: 4000mg in 24 hrs. Suspended aspirin (ECOTRIN) 81 mg enteric coated tabletIndication s:Status post revision of total replacement of left knee Take 1 Tablet (81 mg) by mouth 2 times daily with meals. 60 Tablet 2 01/24/20 24 Discontinued(* Patient states no longer taking) oxyCODONE (ROXICODONE) 5 mg immediate release tabletIndication s:Status post revision of total replacement of left knee Take 1-2 Tablets (5-10 mg) by mouth every 4 hours if needed for Pain. 30 Tablet 2 01/24/20 24 Discontinued(* Patient states no longer taking) durable medical equipment (DME)Indications :Ulcer of right foot with fat layer exposed (HC) [phone] Squared Toe Post OP Shoe, Small 1 Each 4 Suspended Additional Information honey (Manuka Honey) 100 % gelIndications:U lcer of right foot with fat layer exposed (HC) Apply topically to affected area(s). 15 mL 2 4 01/24/20 24 Discontinued(* Patient states no longer taking) cyanocobalamin (Vitamin B-12) 100 mcg tablet Take 100 mcg by mouth once daily. Suspended apixaban (Eliquis) 2.5 mg tablet Take 2.5 mg by mouth two times daily. Suspended metoprolol succinate (TOPROL XL) 50 mg sustained-releas e tablet Take 50 mg (full tab) by mouth in the morning and 25 mg (half tab) by mouth in the evening Suspended calcium carbonate-vitami n D 250 mg-3.125 mcg (125 unit) tab Take 1 Tablet by mouth two times daily. 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 Hypertension Hypothyroidism Hypercholesteremia HLD (hyperlipidemia) Neuropathy Rheumatoid arthritis RLS (restless legs syndrome) Encounters Date Type Department Care Team Description 01/24/2024 12:43 PM CDT Anesthesia Event [facility] [address] [place] [address] Dimitri Stahl MD Westen, Shell Prado MD 01/24/2024 9:47 AM CDT - Present Hospital Encounter [facility] [address] [place] [address] Jeanne Torres MD [facility] [place]ists Of Lisa, MD Jhon Heredia Kayla Julia, HAN Newton, MD Maribeth Rowley, MD So Montesinos, Anayeli Mayberry, SUPERVISOR [employer] 01/24/2024 Travel 01/23/2024 Telephone [facility] [address] [facility] [address] [place] [address] Jeanne Torres MD Instruction 01/23/2024 Telephone [facility] [address] [facility] [address] [place] [address] Jeanne Torres MD Appointment (Cardioversion) 01/17/2024 11:00 AM CDT Office Visit [facility] [address] [place] [address] Jeanne Torres MD Arrived 12/28/2023 9:00 AM CDT Ancillary Procedure [facility] [address] [place] [address] 12/12/2023 11:30 AM CDT Office Visit [facility] [address] [facility] [address] Toney Winchester DPM Ulcer (Follow up-right foot) 12/12/2023 Travel 11/28/2023 1:00 PM CDT Office Visit [facility] [address] [facility] [place] [address] Toney Winchester DPM Ulcer (Follow up-right foot) 11/28/2023 Travel 11/14/2023 2:45 PM CDT Office Visit [facility] [address] [facility] [place] [address] Toney Winchester DPM Follow Up (Right ulcer , 3 week follow up) 11/14/2023 Travel from Last 3 Months Immunizations Name [...] Given: Yes Alcohol Use Standard Drinks/Week Comments Not Currently 0 (1 standard drink = 0.6 oz [...] Sign Reading Time Taken Comments Blood Pressure 146/89 01/25/2024 8:00 AM CDT Pulse 97 01/25/2024 8:00 AM CDT Temperature 36.7 ??C (98 ??F) 01/25/2024 8:00 AM CDT Respiratory Rate 18 01/25/2024 8:00 AM CDT Oxygen Saturation 96% 01/25/2024 2:48 AM CDT Inhaled Oxygen Concentration - - Weight 68.2 kg (150 lb 6.4 oz) 01/25/2024 6:00 A M CDT Height 162.6 cm (5' 4) 01/24/2024 10:24 AM CDT Body Mass Index 25.82 01/24/2024 10:24 AM CDT Plan of Treatment Health Maintenance Due Date [...] 07/19/1998 Pneumococcal series for age 65+ Completed , 02/19/2006 Zoster (shingles) series for age 50+ Completed 10/18/2018, 08/09/2018, 07/01/2009, Additional history exists Tdap Completed 09/24/2019, 03/26/2009 Medical Devices Implanted Type Area Sql Server Developer Device Identifier Shelf Expiration Date Model / Serial / Lot Simplex P Bone Cement - Half Dose Implanted:Qty: 2 on 10/18/2021 by Kevin Hogue MD at Left: Knee [employer] 07/12/2023 / [id number] / [id number] Triathlon Femoral Posterior Augment Implanted:Qty: 1 on 10/18/2021 by Kevin Hogue MD at Left: Knee [employer] 06/01/2025 / [id number]-A-400 / [id number] Simplex P Bone Cement Full Dose Implanted:Qty: 2 on 10/18/2021 by Kevin Hogue MD at Left: Knee [employer] 09/12/2023 / [id number] / [id number] Triathlon Fluted Stem - Tibia Implanted:Qty: 1 on 10/18/2021 by Kevin Hogue MD at Left: Knee [facility] [employer] 10/09/2025 / [id number] / [id number] Triathlon Tritanium Tibial Symmetric Cone Augment Implanted:Qty: 1 on 10/18/2021 by Kevin Hogue MD at Left: Knee [employer] 05/04/2026 / [id number] / [id number] Triathlon Total Knee Jasper Tibial Baseplate Implanted:Qty: 1 on 10/18/2021 by Kevin Hogue MD at Left: Knee [employer] 12/19/2025 / [id number] / [id number] Triathlon Fluted Stem - Femur Implanted:Qty: 1 on 10/18/2021 by Kevin Hogue MD at Left: Knee [employer] 06/15/2025 / [id number] / [id number] Triathlon Total Stabilizer Femoral Component Implanted:Qty: 1 on 10/18/2021 by Kevin Hogue MD at Left: Knee [facility] 01/16/2026 / [id number] / [id number] Triathlon X3 Total Stablizer+ Tibial Insert Implanted:Qty: 1 on 10/18/2021 by Kevin Hogue MD at Left: Knee [employer] 08/31/2026 / [id number] -[id number] / [id number] Triathlon Femoral Posterior Augment Implanted:Qty: 1 on 10/18/2021 by Kevin Hogue MD at Left: Knee [facility] 09/05/2025 / [id number]-A-[id number] / [id number] Procedures The patient is currently admitted. The information in this section might not be complete until the patient is discharged. Procedure Name Priority Date/Time Associated Diagnosis Comments ECHO TTE LIMITED W CONTRAST W COLOR W DOPPLER Routine 01/25/2024 12:04 PM CDT SCAN-CARDIAC STRIP 01/25/2024 8: 42 AM CDT LIPID PANEL W REFLEX MEASURED LDL CLARISA 01/25/2024 5:56 AM CDT MAGNESIUM Early AM 01/25/2024 5:56 AM CDT BASIC METABOLIC PANEL Early AM 01/25/2024 5:56 AM CDT PROTIME-INR Early AM 01/25/2024 5:56 AM CDT SCAN-CARDIAC STRIP 01/24/2024 8: 08 PM CDT SCAN-CARDIAC STRIP 01/24/2024 6: 16 PM CDT PROTIME-INR Timed 01/24/2024 3:29 PM CDT ECHO RAMEZ WO CONTRAST W COLOR W LTD DOPPLER Routine 01/24/2024 1:01 PM CDT TSH CLARISA 01/24/2024 11:05 AM CDT BASIC METABOLIC PANEL CLARISA 01/24/2024 11:05 AM CDT CREATININE CLARISA 01/24/2024 11:05 AM CDT POTASSIUM,ISTAT Timed 01/24/2024 10:34 AM CDT EKG 12 LEAD Preop 01/24/2024 10:11 AM CDT ECHO TTE COMPLETE WO CONTRAST Routine 12/28/2023 9:58 AM CDT Unspecified atrial fibrillation (HC) from Last 3 Months Results * ECHO TTE LIMITED W CONTRAST W COLOR W DOPPLER (01/25/2024 12:04 PM CDT) AORTIC VALVE MEAN PG 7 mmHg EJECTION FRACTION 39 % PEAK TR VELOCITY 3.8 m/s LVEDD 4.4 cm EJECTION FRACTION 50 - 55% Anatomical Region Laterality Modality Ultrasound 01/25/2024 11:0 0 AM CDT Narrative 01/25/2024 1:27 PM CDT ECHOCARDIOGRAM ABIMBOLA SAMUELS ? Accession#: ?? [id number] : ?1940 83 years Study Date: ?? 01/25/2024 11:00:05 AM Gender: F ?BP: ? 110/94 mmHg Height: 162.00 cm ?BSA: ?1.73 m? ? ? Weight: 68.00 kg ? Tech: ? Referring MD: JEANNE TORRES Site: ? [facility] Reading Location: [facility] Patient Location: Inpatient. Procedure: Limited Echo w/ Contrast, Limited Spectral Doppler and Color Doppler. Indication for study: Mitral Stenosis, Murmur Cardiac Rhythm: Atrial fibrillation.Study quality: Good. Final Impressions: Limited Echocardiogram performed 1. Normal LV size, normal wall thickness, low normal global systolic function with an estimated EF of 50 - 55%. 2. Right ventricular cavity size is mildly enlarged, global systolic RV function is moderately reduced. 3. Moderate biatrial enlargement 4. The mitral valve is sclerotic with a mean gradient of 10 mm Hg at 95 bpm and mild mitral regurgitation. 5. Moderate tricuspid regurgitation. 6. The inferior vena cava is dilated, respiratory size variation less than 50%, consistent with elevated right atrial pressure. 7. Severely increased estimated pulmonary pressures by tricuspid regurgitation velocity and right atrial pressure (57 mmHg plus RAP). 8. Echo contrast was administered to enhance visualization of all left ventricular segments. 9. Compared to the prior study of 12/28/2023, there has been a slight decline in left and right ventricular systolic function. Chamber Sizes and Function Normal left ventricular size, normal wall thickness, low normal global systolic function with an estimated EF of 50 - 55%. Left atrial size is moderately enlarged. Right ventricular cavity size is mildly enlarged, global systolic RV function is moderately reduced. The right atrium is moderately enlarged. Right atrial volume index is 39 ml/m? ? ?. Valves, RV Pressures and Diastolic Function The mitral valve is sclerotic, mild mitral regurgitation. The mitral valve peak velocity is 2.41 m/s and the mean gradient is 9.6 mmHg. Tricuspid regurgitation is moderate. The tricuspid regurgitant velocity is 3.8 m/s, the estimated right ventricular systolic pressure is 57 mmHg plus right atrial pressure. There is severely increased estimated pulmonary pressure by tricuspid regurgitation velocity and right atrial pressure. The pulmonic valve is normal. Trace pulmonic regurgitation is present on color flow. Masses, Effusion, Shunts There is no pericardial effusion. The inferior vena cava is dilated, respiratory size variation less than 50%, consistent with elevated right atrial pressure. MEASUREMENTS AND CALCULATIONS 2-D Measurements and LV Function: LVID (d) 4.4 cm LV FS% (2D) ?? 30 % LVID (s) 3.1 cm LVOT diameter 2.0 cm IVS (d) ??0.9 cm HR ?88 bpm LVPW (d) 0.9 cm RA Vol index ??39 ml/m2 Diastology: Mitral E Peak 2.34 m/s DT ? 355 msec Aortic Valve: Vmax ? 1.7 m/s ??VIKTORIYA (V) ?? 1.40 cm? ? ? VTI ?0.35 m ?? VIKTORIYA (I) ?? 1.38 cm? ? ? LVOT V max 0.7 m/s ??Max PG ?11 mmHg LVOT VTI ?? 0.15 m ?? Mean PG ?? 7 mmHg SV ? 48 ml ?Dim Index 0.44 SV index ?? 28 ml/m? ? ? CO ?4.3 l/min ?CI ?2.5 l/min/m? ? ? Mitral Valve: MVA ? 2.1 cm?MR TVI 1.65 m MV P 1/2 ??103 msec MV Mean G 10 mmHg Tricuspid Valve and estimated PA pressures: TR Vmax 3.8 m/s TAPSE 1.1 cm TR maxG 57 mmHg Pulmonic Valve: PV Vmax 0.8 m/s PV AT ?? 56 msec Contrast documentation: 2 ml diluted Definity, lot #[id number] was administered peripherally to enhance visualization of all left ventricular segments. . This study was interpreted by an [facility] accredited facility. ??Final ?? Procedure Note Chandrakant Rain MD - 01/25/2024 ECHOCARDIOGRAM ABIMBOLA SAMUELS : 1940 83 years Study Date: 01/25/2024 11:00:05 AM Gender: F BP: 110/94 mmHg Height: 162.00 cm BSA: 1.73 m? ? ? Weight: 68.00 kg Tech: SHELLY Referring MD: JEANNE TORRES Site: [facility] Reading Location: [facility] Patient Location: Inpatient. Procedure: Limited Echo w/ Contrast, Limited Spectral Doppler and ColorDoppler. Indication for study: Mitral Stenosis, Murmur Cardiac Rhythm: Atrial fibrillation.Study quality: Good. Final Impressions: Limited Echocardiogram performed 1. Normal LV size, normal wall thickness, low normal global systolicfunction with an estimated EF of 50 - 55%. 2. Right ventricular cavity size is mildly enlarged, global systolic RVfunction is moderately reduced. 3. Moderate biatrial enlargement 4. The mitral valve is sclerotic with a mean gradient of 10 mm Hg at 95bpm and mild mitral regurgitation. 5. Moderate tricuspid regurgitation. 6. The inferior vena cava is dilated, respiratory size variation lessthan 50%, consistent with elevated right atrial pressure. 7. Severely increased estimated pulmonary pressures by tricuspidregurgitation velocity and right atrial pressure (57 mmHg plus RAP). 8. Echo contrast was administered to enhance visualization of all leftventricular segments. 9. Compared to the prior study of 12/28/2023, there has been a slightdecline in left and right ventricular systolic function. Chamber Sizes and Function Normal left ventricular size, normal wall thickness, low normal globalsystolic function with an estimated EF of 50 - 55%. Left atrial size ismoderately enlarged. Right ventricular cavity size is mildly enlarged,global systolic RV function is moderately reduced. The right atrium ismoderately enlarged. Right atrial volume index is 39 ml/m? ? ?. Valves, RV Pressures and Diastolic Function The mitral valve is sclerotic, mild mitral regurgitation. The mitral valvepeak velocity is 2.41 m/s and the mean gradient is 9.6 mmHg. Tricuspidregurgitation is moderate. The tricuspid regurgitant velocity is 3.8 m/s,the estimated right ventricular systolic pressure is 57 mmHg plus rightatrial pressure. There is severely increased estimated pulmonary pressureby tricuspid regurgitation velocity and right atrial pressure. Thepulmonic valve is normal. Trace pulmonic regurgitation is present on colorflow. Masses, Effusion, Shunts There is no pericardial effusion. The inferior vena cava is dilated,respiratory size variation less than 50%, consistent with elevated rightatrial pressure. MEASUREMENTS AND CALCULATIONS 2-D Measurements and LV Function: LVID (d) 4.4 cm LV FS% (2D) 30 % LVID (s) 3.1 cm LVOT diameter 2.0 cm IVS (d) 0.9 cm HR 88 bpm LVPW (d) 0.9 cm RA Vol index 39 ml/m2 Diastology: Mitral E Peak 2.34 m/s DT 355 msec Aortic Valve: Vmax 1.7 m/s VIKTORIYA (V) 1.40 cm? ? ? VTI 0.35 m VIKTORIYA (I) 1.38 cm? ? ? LVOT V max 0.7 m/s Max PG 11 mmHg LVOT VTI 0.15 m Mean PG 7 mmHg SV 48 ml Dim Index 0.44 SV index 28 ml/m? ? ? CO 4.3 l/min CI 2.5 l/min/m? ? ? Mitral Valve: MVA 2.1 cm? ? ? MR TVI 1.65 m MV P 1/2 103 msec MV Mean G 10 mmHg Tricuspid Valve and estimated PA pressures: TR Vmax 3.8 m/s TAPSE 1.1 cm TR maxG 57 mmHg Pulmonic Valve: PV Vmax 0.8 m/s PV AT 56 msec Contrast documentation: 2 ml diluted Definity, lot #[id number] was administeredperipherally to enhance visualization of all left ventricular segments. . This study was interpreted by an [facility] accredited facility. Final Jeanne Torres MD ECHO ORD * SCAN-CARDIAC STRIP (01/25/2024 8:42 AM CDT) Scanner OTHER * LIPID PANEL W REFLEX MEASURED LDL (01/25/2024 5:56 AM CDT) CHOLESTEROL,TOTAL 174 100 - 199 mg/dL 01/25/2024 11:36 AM CDT [facility] Comment: Cholesterol, Total Reference Ranges Desirable <200 mg/dL Borderline 200-239 mg/dL High >=240 mg/dL TRIGLYCERIDES 114 <150 mg/dL 01/25/2024 11:36 AM CDT [facility] HDL CHOLESTEROL 58 >40 mg/dL 11:36 AM CDT [facility] NON-HDL CHOLESTEROL 116 <145 mg/dl 01/25/2024 11:36 AM CDT [facility] CHOL/HDL RATIO 3.00 <4.50 01/25/2024 11:36 AM CDT [facility] LDL CHOLESTEROL 93 <=130 mg/dL 01/25/2024 11:36 AM CDT [facility] VLDL CHOLESTEROL 23 <=30 mg/dL 01/25/2024 11:36 AM CDT [facility] PROVIDER ORDERED STATUS RANDOM 01/25/2024 11:36 AM CDT [facility] Blood BLOOD SPECIMEN / Unknown Venipuncture / Unknown 01/25/2024 5:56 AM CDT 01/25/2024 6:13 AM CDT Akosua Blanco NP CHEMISTRY [facility] [address] [place] [address], * (ABNORMAL) PROTIME-INR (01/25/2024 5:56 AM CDT) Only the most recent of2 resultswithin the time period is included. INR 1.3(H) <1.3 01/25/2024 6:23 AM CDT [facility] PROTIME 14.3(H) 10.3 - 12.3 sec 01/25/2024 6:23 AM CDT [facility] Blood BLOOD SPECIMEN / Unknown Venipuncture / Unknown 01/25/2024 5:56 AM CDT 01/25/2024 6:13 AM CDT Narrative [facility] - 01/25/2024 6:23 AM CDT ?Therapeutic Range 2.0-3.0 for most anticoagulated patients 2.5-3.5 or 4.0 for high risk patients The INR is only used for patients on stable oral anticoagulant therapy. It makes no significant contribution to the diagnosis or treatment of patients whose Protime is prolonged for other reasons. INR results are increased when heparin levels exceed 1.0 U/mL, which corresponds to an aPTT >125 seconds if the patient is on UFH. Yrn Gleason MD HEMATOLOGY Performing Organization Address [facility] Co de Phone Number [facility] [address] [place] [address], * MAGNESIUM (01/25/2024 5:56 AM CDT) MAGNESIUM 1.7 1.6 - 2.4 mg/dL 01/25/2024 6:38 AM CDT [facility] Blood BLOOD SPECIMEN / Unknown Venipuncture / Unknown 01/25/2024 5:56 AM CDT 01/25/2024 6:13 AM CDT Anais SHORT CHEMISTRY Performing Organization Address [facility] de Phone Number [facility] [address] [place] [address], * (ABNORMAL) BASIC METABOLIC PANEL (01/25/2024 5:56 AM CDT) Only the most recent of2 resultswithin the time period is included. SODIUM 144 136 - 145 mmol/L 01/25/2024 6:38 AM CDT [facility] POTASSIUM 4.2 3.5 - 5.1 mmol/L 01/25/2024 6:38 AM CDT [facility] CHLORIDE 105 98 - 107 mmol/L 01/25/2024 6:38 AM CDT [facility] CO2,TOTAL 26 22 - 29 mmol/L 01/25/2024 6:38 AM CDT [facility] ANION GAP 13 5 - 18 01/25/2024 6:38 AM CDT [facility] GLUCOSE 84 70 - 99 mg/dL 01/25/2024 6:38 AM CDT [facility] CALCIUM 9.7 8.8 - 10.2 mg/dL 01/25/2024 6:38 AM CDT [facility] BUN 37(H) 8 - 23 mg/dL 01/25/2024 6:38 AM CDT [facility] CREATININE 1.40(H) 0.50 - 0.90 mg/dL 01/25/2024 6:38 AM CDT [facility] BUN/CREAT RATIO 26(H) 10 - 20 6:38 AM CDT [facility] eGFR 37(L) >90 mL/min/1.7 3m2 01/25/2024 6:38 AM CDT [facility] Comment:As of 2021, eG FR is calculated by the CKD-EPI creatinine equation without race adjustment. ??eGFR can be influenced by muscle mass, exercise, and diet. ??The reported eGFR is an estimation only and is only applicable if the renal function is stable. Blood BLOOD SPECIMEN / Unknown Venipuncture / Unknown 01/25/2024 5:56 AM CDT 01/25/2024 6:13 AM CDT Anais SHORT [facility] [address] [place] [address], * SCAN-CARDIAC STRIP (01/24/2024 8:08 PM CDT) Scanner OTHER * SCAN-CARDIAC STRIP (01/24/2024 6:16 PM CDT) Scanner OTHER * ECHO RAMEZ WO CONTRAST W COLOR W LTD DOPPLER (01/24/2024 1:01 PM CDT) EJECTION FRACTION 60 - 65% Anatomical Region Laterality Modality Ultrasound 01/24/2024 12:2 7 PM CDT Narrative 01/24/2024 1:26 PM CDT TRANSESOPHAGEAL ECHOCARDIOGRAM ABIMBOLA SAMUELS ? Accession#: ?? [id number] : ?1940 83 years Study Date: ?? 01/24/2024 12:27:40 PM Gender: F ?BP: ? 132/83 mmHg Height: 162.00 cm ?BSA: ?1.76 m? ? ? Weight: 71.00 kg ? Tech: ? KBA ? Referring MD: ALENA AMAYA Site: ? [facility] Reading Location: [facility] Patient Location: Outpatient. Procedure: RAMEZ, Color Doppler and Limited Spectral Doppler. Indication for study: DCCV Cardiac Rhythm: Atrial flutter.Study quality: Fair. Final Impressions: 1. Thrombus in RIDDHI appendage. 2. Normal LV size, estimated EF of 60 - 65%. 3. Normal RV size and systolic function. 4. The aortic valve is sclerotic, no stenosis and trivial regurgitation. 5. The mitral valve is sclerotic, trace regurgitation, mean diastolic gradient 5 - 7 mmHg @ HR 150 bpm. 6. Mild-moderate tricuspid regurgitation. Procedure comments: Indications, goals, risks and alternatives of the procedure were discussed with the patient and informed consent was obtained. The patient received sedation of intravenous Propofol and general anesthesia. See procedural record for anesthesia details. Prior to performance of procedure, time out was called to accurately identify the patient and procedure. The Echo probe was passed without difficulty. RAMEZ, Color Doppler and Limited Spectral Doppler was performed. The patient developed no apparent complications during the procedure. Estimated Blood Loss: 0 ml Chamber Sizes and Function Normal left ventricular size, normal global systolic function with an estimated EF of 60 - 65%. Left atrial size is not well visualized. The left atrial appendage is well visualized and there is evidence of thrombus present. Decreased left atrial appendage flow velocities. Right ventricular cavity size is normal, global systolic RV function is normal. The right atrium is not well visualized. The pulmonary artery is not well visualized. The sinus of Valsalva is normal sized. The ascending aorta is normal sized. Aortic arch is normal sized with no significant plaque visualized. Descending aorta is normal sized with no significant plaque visualized. Valves, RV Pressures and Diastolic Function The aortic valve is sclerotic, no stenosis and trivial regurgitation. The mitral valve is sclerotic, trace mitral regurgitation. The tricuspid valve is normal in structure. Tricuspid regurgitation is mild-moderate. The pulmonic valve is normal. No pulmonary regurgitation. Masses, Effusion, Shunts There is no pericardial effusion. Not well visualized intra-atrial septum. Agitated saline injection not done. MEASUREMENTS AND CALCULATIONS 2-D Measurements and LV Function: HR 157 bpm . This study was interpreted by an [facility] accredited facility. ??Final ?? Procedure Note Juanito Martinez MD - 01/24/2024 TRANSESOPHAGEAL ECHOCARDIOGRAM ABIMBOLA SAMUELS : 1940 83 years Study Date: 01/24/2024 12:27:40 PM Gender: F BP: 132/83 mmHg Height: 162.00 cm BSA: 1.76 m? ? ? Weight: 71.00 kg Tech: CESAR Referring MD: ALENA AMAYA Site: [facility] Reading Location: ANW OP Patient Location: Outpatient. Procedure: RAMEZ, Color Doppler and Limited Spectral Doppler. Indication for study: DCCV Cardiac Rhythm: Atrial flutter.Study quality: Fair. Final Impressions: 1. Thrombus in RIDDHI appendage. 2. Normal LV size, estimated EF of 60 - 65%. 3. Normal RV size and systolic function. 4. The aortic valve is sclerotic, no stenosis and trivialregurgitation. 5. The mitral valve is sclerotic, trace regurgitation, mean diastolicgradient 5 - 7 mmHg @ HR 150 bpm. 6. Mild-moderate tricuspid regurgitation. Procedure comments: Indications, goals, risks and alternatives of theprocedure were discussed with the patient and informed consent wasobtained. The patient received sedation of intravenous Propofol andgeneral anesthesia. See procedural record for anesthesia details. Prior toperformance of procedure, time out was called to accurately identify thepatient and procedure. The Echo probe was passed without difficulty. RAMEZ,Color Doppler and Limited Spectral Doppler was performed. The patientdeveloped no apparent complications during the procedure. Estimated Blood Loss: 0 ml Chamber Sizes and Function Normal left ventricular size, normal global systolic function with anestimated EF of 60 - 65%. Left atrial size is not well visualized. Theleft atrial appendage is well visualized and there is evidence of thrombuspresent. Decreased left atrial appendage flow velocities. Rightventricular cavity size is normal, global systolic RV function is normal.The right atrium is not well visualized. The pulmonary artery is not wellvisualized. The sinus of Valsalva is normal sized. The ascending aorta isnormal sized. Aortic arch is normal sized with no significant plaquevisualized. Descending aorta is normal sized with no significant plaquevisualized. Valves, RV Pressures and Diastolic Function The aortic valve is sclerotic, no stenosis and trivial regurgitation. Themitral valve is sclerotic, trace mitral regurgitation. The tricuspid valveis normal in structure. Tricuspid regurgitation is mild-moderate. Thepulmonic valve is normal. No pulmonary regurgitation. Masses, Effusion, Shunts There is no pericardial effusion. Not well visualized intra-atrial septum.Agitated saline injection not done. MEASUREMENTS AND CALCULATIONS 2-D Measurements and LV Function: HR 157 bpm . This study was interpreted by an [facility] accredited facility. Final Alena Amaya NP ECHO ORD * TSH (01/24/2024 11:05 AM CDT) TSH 1.42 0.27 - 4.20 uIU/mL 01/24/2024 6:11 PM CDT [facility] Blood BLOOD SPECIMEN / Unknown Butterfly / Unknown 01/24/2024 11:05 AM CDT 01/24/2024 11:13 AM CDT Narrative [facility] - 01/24/2024 6:11 PM CDT In Adults, TSH values between 5.00 and 10.00 uIU/ml do not necessarily indicate the presence of Hypothyroidism. Correlation with clinical findings such as presence of goiter and/or Thyroperoxidase (TPO) Antibody may be helpful. For more information please refer to SHABANA 2004; 291: 228-238. Anais SHORT CHEMISTRY Performing Organization Address [facility] Co de Phone Number [facility] [address] [address], [place] * (ABNORMAL) CREATININE (01/24/2024 11:05 AM CDT) eGFR 34(L) >90 mL/min/1.7 3m2 01/24/2024 11:38 AM CDT [facility] Comment:As of 2021, eG FR is calculated by the CKD-EPI creatinine equation without race adjustment. ??eGFR can be influenced by muscle mass, exercise, and diet. ??The reported eGFR is an estimation only and is only applicable if the renal function is stable. CREATININE 1.50(H) 0.50 - 0.90 mg/dL 01/24/2024 11:38 AM CDT [facility] Blood BLOOD SPECIMEN / Unknown Butterfly / Unknown 01/24/2024 11:05 AM CDT 01/24/2024 11:13 AM CDT Alena Amaya NP CHEMISTRY Performing Organization Address [facility] Co de Phone Number [facility] [address] [phone], [place] * POTASSIUM,ISTAT (01/24/2024 10:34 AM CDT) POTASSIUM, POCT 4.3 3.5 - 5.0 mmol/L 01/24/2024 10:40 AM CDT [facility] Blood BLOOD SPECIMEN / Unknown 01/24/2024 10:34 AM CDT 01/24/2024 10:40 AM CDT Jeanne Torres MD CHEMISTRY Performing Organization Address [facility]/State/[facility] Co de Phone Number [facility] [address] [place] [address], * EKG - 12 Lead (01/24/2024 10:11 AM CDT) Interpretation Atrial fibrillation with rapid ventricular response with premature ventricular or aberrantly conducted complexes Right bundle branch block T wave abnormality, consider lateral ischemia Abnormal ECG No previous ECGs available BEYOND NOW Ventricular Rate 132 BPM BEYOND NOW Atrial Rate BPM BEYOND NOW P-R Interval ms BEYOND NOW QRS Duration 126 ms BEYOND NOW QT 338 ms BEYOND NOW QTc 500 ms BEYOND NOW P [place] degrees BEYOND NOW R [place] 42 degrees BEYOND NOW T [place] -24 degrees BEYOND NOW 01/24/2024 10:1 1 AM CDT 01/24/2024 2:17 PM CDT Narrative [facility] NOW - 01/24/2024 2:17 PM CDT Test Indication: PRECARDIO Alena Amaya NP EKG ORD Performing Organization Address City/[facility] Co de Phone Number BEYOND NOW [place], [place] * ECHO TTE COMPLETE WO CONTRAST (12/28/2023 9:58 AM CDT) AORTIC VALVE MEAN PG 4 mmHg PEAK TR VELOCITY 3.2 m/s LVEDD 3.5 cm EJECTION FRACTION 55 - 60% Anatomical Region Laterality Modality Ultrasound 12/28/2023 9:13 AM CDT Narrative 12/28/2023 10:52 AM CDT ECHOCARDIOGRAM ABIMBOLA SAMUELS ? Accession#: ?? [id number] : ?1940 83 years Study Date: ?? 12/28/2023 9:13:23 AM Gender: F ?BP: ? 147/88 mmHg Height: 163.00 cm ?BSA: ?1.71 m? ? ? Weight: 66.00 kg ? Tech: ? MBF ? Referring MD: TAMERA NEWTON Site: ? [facility] Reading Location: Mobile [facility] Patient Location: Outpatient. Procedure: 2D, [...] AM. This study was interpreted by an [facility] accredited facility. CC: HIM (med records) [facility]. ??Final (Updated) ?? Procedure Note Chandrakant Tomas MD - 12/28/2023 ECHOCARDIOGRAM ABIMBOLA SAMUELS : 1940 83 years Study Date: 12/28/2023 9:13:23 AM Gender: F BP: 147/88 mmHg Height: 163.00 cm BSA: 1.71 m? ? ? Weight: 66.00 kg Tech: [facility] Referring MD: TAMERA NEWTON Site: [facility] Reading Location: Mobile CLARISA Patient [...] AM. This study was interpreted by an [facility] accredited facility. CC: [facility] (med [facility]) [facility]. 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 Healthcare Directive 10/20/2021 8:51 AM * Full Code (Latest Code Status on File) Date Activated Date Inactivated Comments 01/25/2024 3:59 PM Question Answer Comments Code Status Discussion: Reviewed Preferences * Full Code Date Activated Date Inactivated Comments 10/18/2021 2:53 PM 10/19/2021 5:32 PM Question Answer Comments Code Status Discussion: Reviewed Preferences * Full Code Date Activated Date Inactivated Comments 10/18/2021 7:44 AM 10/18/2021 11:53 AM Question Answer Comments Code Status Discussion: Unable to Assess Preferences, Provider to review later Care Teams Artificial Limb Maker Relationship Specialty Start Date End Date Tamera Newton MD [address] [place] [address] PCP - General Family Practice 10/24/23
--- OUTSIDE RECORDS SUMMARY | 2024-01-25 19:58 | XMS_ITS | Encounter Summary ---
Author Organization [employer] [facility] Address [address] [place] [address] Care Team Providers Care Washing And Screening Plant Supervisor Name Role Phone Clinician, Not Found MD Primary Care Provider Un available Reason for Visit * Reason Comments Follow-up Encounter Details Date Type Department Care Team (Late st Contact Info) Description 12/18/2023 2:30 PM CDT Office Visit [facility] [address] [place] [address] Denise Davila MD [facility] [place], [place] [phone] Chronic tophaceous gout (Primary Dx); Osteoarthritis of [...] with her primary care provider in the [facility] system. She was told to have elevated [...] Info) Description 02/26/2024 11:00 AM CDT Appointment [facility] [address] [place] [address] Denise Davila MD [address] [place] [address] 04/25/2024 12:00 PM CDT Appointment [facility] [address] [place] [address] Denise Davila MD [address] [place], [place] [phone] documented as of this encounter Results * CCP Antibody (12/18/2023 3:21 PM CDT) [facility] Anti-CCP Antibody 0.5 0.0 - 6.9 U/mL 12/19/2023 1:00 PM CDT [facility] Anti-CCP Antibody Interpretation Negative Negative 12/19/2023 1:00 PM CDT [facility] Blood Venipuncture / Unknown 12/18/2023 3:21 PM CDT 12/18/2023 3:21 PM CDT Narrative [facility] - 12/19/2023 1:00 PM CDT This result was obtained with the [employer] 250. Quantitative results cannot be directly compared to other manufacturers' methods. Denise Davila MD LAB_1 [facility] [address] * Rheumatoid Factor, Quant (12/18/2023 3:21 PM CDT) [facility] Rheumatoid Factor, Quantitative <15 <=30 IU/mL 12/18/2023 9:03 PM CDT [facility] Blood Venipuncture / Unknown 12/18/2023 3:21 PM CDT 12/18/2023 3:21 PM CDT Denise Davila MD LAB_1 [facility] [address] [place], [place] [address] * Sedimentation Rate (ESR) (12/18/2023 3:21 PM CDT) Pathologist [facility] Sedimentation Rate 12 0 - 20 mm/hr 12/18/2023 3:55 PM CDT [facility] Blood Venipuncture / Unknown 12/18/2023 3:21 PM CDT 12/18/2023 3:21 PM CDT Denise Davila MD LAB_1 Performing Organization Address [facility]/ZIP Co de Phone Number [address] [phone] * (ABNORMAL) C-Reactive Protein (12/18/2023 3:21 PM CDT) Pathologist [facility] C-Reactive Protein 1.4(H) 0.0 - 0.5 mg/dL 12/18/2023 5:10 PM CDT [facility] Blood Venipuncture / Unknown 12/18/2023 3:21 PM CDT 12/18/2023 3:21 PM CDT Denise Davila MD LAB_1 Performing Organization Address [facility]/ZIP Co de Phone Number [address] [phone] * (ABNORMAL) Protein ELP (Serum) (12/18/2023 3:21 PM CDT) Pathologist [facility] Total Protein 6.9 6.4 - 8.3 g/dL 12/20/2023 10:36 AM CDT [facility] Albumin 4.3 3.4 - 4.8 g/dL 12/20/2023 10:36 AM CDT [facility] Alpha 1 0.4 0.2 - 0.5 g/dL 12/20/2023 10:36 AM CDT [facility] Alpha 2 0.9 0.5 - 1.1 g/dL 12/20/2023 10:36 AM CDT [facility] Beta 0.7 0.6 - 1.1 g/dL 12/20/2023 10:36 AM CDT [facility] Gamma 0.6(L) 0.7 - 1.6 g/dL 12/20/2023 10:36 AM CDT [facility] Monoclonal Vahid 0.0 <=0.0 g/dL 12/20/2023 10:36 AM CDT [facility] Interpretation Borderline hypogammaglobuli nemia. Consider urine immunofixation to rule out Bence Orozco proteinuria. 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
== END 2024-01-21 10:06 | disposition home or self-care (01) ==
LOC: NFLDREF 01-25 19:55
PROVIDERS: PCP Family Medicine; Referring Provider Family Medicine; Visit Provider Family Medicine
DX: R79.89 Other specified abnormal findings of blood chemistry (principal); E55.9 Vitamin D deficiency, unspecified; M35.3 Polymyalgia rheumatica; M81.0 Age-related osteoporosis without current pathological fracture
CPT/HCPCS: 80053; 82306; 86140

== ENCOUNTER 2024-01-23 14:43 | Emergency (ER) | payer MEDICARE, OTHER, SELFPAY ==
[2024-01-23] VITALS (20 sets, daily range): BP systolic 102–132; BP diastolic 83–106; PULSE 119–168; RESP 20; TEMP 36.3; O2SAT 92–99; BMI 26.6
[2024-01-23] MEDS: METOPROLOL TARTRATE 1 MG/ML inj 5 MG IVP (15:24)
--- OUTSIDE RECORDS SUMMARY | 2024-01-23 15:24 | XMS_ITS | Encounter Summary ---
Author Organization [facility] Address [address], [place] [address] Care Team Providers Care Batch Trucker Name Role Phone Clinician, Not Found MD Primary Care Provider Un available Encounter Details Date Type Department Care Team (Latest Contact Info) Description 01/02/2024 Orders Only HIM DEPARTMENT Provider, [place] [address] Social History Tobacco Use Types Packs/Day Years [...] Care Team (Late st Contact Info) Description 02/26/2024 11:00 AM CDT Appointment [facility] [address] [place] [address] Denise Davila MD [address] [place] [address] 04/25/2024 12:00 PM CDT Appointment [facility] [address] [place] [address] Denise Davila MD [address] [place] [address] documented as of this encounter Procedures Procedure Name Priority Date/Time Associated Diagnosis Comments LABORATORY REPORT 01/02/2024 documented in this encounter Results * LABORATORY REPORT (01/02/2024) Interface Provider DUMMY/OTHER/AR documented in this encounter Visit Diagnoses Not on filedocumented in this encounter Care Teams Batch Trucker Relationship Specialty Start Date End Date Clinician, Not Found, [place] [address] PCP - General 03/01/18 documented as of this encounter
--- OUTSIDE RECORDS SUMMARY | 2024-01-23 15:24 | XMS_ITS | Encounter Summary ---
Author Organization [facility] Address [address], [place] [address] Care Team Providers Care Trim Carpenter Name Role Phone Clinician, Not Found MD Primary Care Provider Un available Encounter Details Date Type Department Care Team (Late st Contact Info) Description 12/20/2023 Notes/Orders [place] [address] [place] [address]. [place] [address] Denise Davila MD [address] [place] [address] Arthralgia, unspecified joint (Primary Dx); PMR (polymyalgia [...] 7:43 AM CDT Received outside records from [facility]: Based on the outside record notes, the [...] prednisone (5-mg tablet) to her local pharmacy ([facility] not the [facility] script) so that she can follow this [...] Info) Description 02/26/2024 11:00 AM CDT Appointment [facility] [address] [place] [address] [place] [address] [place] [address] 04/25/2024 12:00 PM CDT Appointment [facility] [address] [place] [address] Denise Davila MD [address] [place], [place] [phone] Scheduled Orders Name Type Priority Associated Diagnoses Orde r Schedule C-Reactive Protein Lab Routine PMR (polymyalgia rheumatica) (HRC) 12 Occurrences starting 12/20/2023 until 12/19/2024, 1 completed Sedimentation Rate (ESR) Lab Routine PMR (polymyalgia rheumatica) ([facility]) 12 Occurrences starting 12/20/2023 until 12/19/2024, 1 completed documented as of this encounter Results * Sedimentation Rate (ESR) (01/11/2024 10:22 AM CDT) Sedimentation Rate 3 0 - 20 mm/hr 01/11/2024 11:05 AM CDT [facility] Blood Venipuncture / Unknown 01/11/2024 10:22 AM CDT 01/11/2024 10:22 AM CDT Denise Davila MD LAB_1 [facility] [address] [place] [address] * C-Reactive Protein (01/11/2024 10:22 AM CDT) [facility] C-Reactive Protein <0.5 0.0 - 0.5 mg/dL 01/11/2024 11:45 AM CDT [facility] Blood Venipuncture / Unknown 01/11/2024 10:22 AM CDT 01/11/2024 10:22 AM CDT Denise Davila MD LAB_1 Performing Organization Address City/[facility]/ZIP Co de Phone Number [facility] [address] [place] [address], [facility] * CK, Total (12/18/2023 3:21 PM CDT) [facility] CK, Total 65 29 - 168 U/L 12/20/2023 10:13 AM CDT [facility] Blood Venipuncture / Unknown 12/18/2023 3:21 PM CDT 12/18/2023 3:21 PM CDT Denise Davila MD LAB_1 [facility] [address] documented in this encounter Visit Diagnoses Diagnosis Arthralgia, unspecified joint- Primary PMR (polymyalgia rheumatica) (HRC) Polymyalgia rheumatica documented in this encounter Care Teams Trim Carpenter Relationship Specialty Start Date End Date Clinician, Not Found, [place] [address] PCP - General 03/01/18 documented as of this encounter
--- OUTSIDE RECORDS SUMMARY | 2024-01-23 15:24 | XMS_ITS | Encounter Summary ---
Author Organization [employer] Address [address] [address] Care Team Providers Care Raw Stock Machine Loader Name Role Phone Clinician, Not Found MD Primary Care Provider Un available Encounter Details Date Type Department Care Team (Late st Contact Info) Description 12/27/2023 Notes/Orders [place] [address] [place] [address]. [place], [place] [phone] Denise Davila MD [facility] [place], [place] [phone] Social History Tobacco Use Types Packs/Day Years [...] also seen by her primary yesterday at [facility].She is scheduled to have imaging study of her liver and echocardiogram. I called her primary Dr. Newton at phone number [phone] to discuss about her condition. I still could not reach Dr. Chandler and left her phone number to call me back. documented in this encounter Plan of Treatment Upcoming Encounters Date Type Department Care Team (Late st Contact Info) Description 02/26/2024 11:00 AM CDT Appointment [facility] [address] [place] [address] [place] [address] [place] [address] 04/25/2024 12:00 PM CDT Appointment [facility] [address] [place] [address] Denise Davila MD [address] [place] [address] documented as of this encounter Visit Diagnoses Not on filedocumented in this encounter Care Teams Raw Stock Machine Loader Relationship Specialty Start Date End Date Clinician, Not Found, [place] [address] PCP - General 03/01/18 documented as of this encounter
--- OUTSIDE RECORDS SUMMARY | 2024-01-23 15:24 | XMS_ITS | Encounter Summary ---
Author Organization [facility] Address [address], [place] [address] Care Team Providers Care Service Learning Coordinator Name Role Phone Clinician, Not Found MD Primary Care Provider Un available Encounter Details Date Type Department Care Team (Late st Contact Info) Description 01/11/2024 10:20 AM CDT Lab Visit [facility] [address] [place], [place] 520697 PMR (polymyalgia rheumatica) (HRC); Chronic tophaceous gout Social History Tobacco Use Types Packs/Day Years [...] Encounters Date Type Department Care Team (Late Contact Info) Description 02/26/2024 11:00 AM CDT Appointment [facility] [address] [place] [address] Denise Davila MD [facility] [place] [address] 04/25/2024 12:00 PM CDT Appointment [facility] [address] [place] [address] Denise Davila MD [address] [place] [address] documented as of this encounter Procedures Procedure Name Priority Date/Time Associated Diagnosis Comments CREATININE / GFR Routine 01/11/2024 10:2 2 AM CDT Chronic tophaceous gout C-REACTIVE PROTEIN Routine 01/11/2024 10 :22 AM CDT PMR (polymyalgia rheumatica) (HRC) SEDIMENTATION RATE (ESR) Routine 01/11/2024 10:22 AM CDT PMR (polymyalgia rheumatica) (HRC) documented in this encounter Results * (ABNORMAL) Creatinine / GFR (01/11/2024 10:22 AM CDT) Creatinine 1.79(H) 0.55 - 1.02 mg/dL 01/15/2024 5:35 PM CDT [facility] GFR, Estimated 28(L) >60 mL/min/1.7 3m2 01/15/2024 5:35 PM CDT [facility] Blood Venipuncture / Unknown 01/11/2024 10:22 AM CDT 01/11/2024 10:22 AM CDT Denise Davila MD LAB_1 Performing Organization Address [facility]/ZIP Co de Phone Number [facility] [address] [place] [address] * Sedimentation Rate (ESR) (01/11/2024 10:22 AM CDT) Sedimentation Rate 3 0 - 20 mm/hr 01/11/2024 11:05 AM CDT [facility] Blood Venipuncture / Unknown 01/11/2024 10:22 AM CDT 01/11/2024 10:22 AM CDT Denise Davila MD LAB_1 Performing Organization Address City/[facility]/ZIP Co de Phone Number [facility] [address] [place] [address] * C-Reactive Protein (01/11/2024 10:22 AM CDT) C-Reactive Protein <0.5 0.0 - 0.5 mg/dL 01/11/2024 11:45 AM CDT [facility] Blood Venipuncture / Unknown 01/11/2024 10:22 AM CDT 01/11/2024 10:22 AM CDT Denise Davila MD LAB_1 [facility] [address] [place] [address] documented in this encounter Visit Diagnoses Diagnosis PMR (polymyalgia rheumatica) (HRC) Polymyalgia rheumatica 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
--- OUTSIDE RECORDS SUMMARY | 2024-01-23 15:24 | XMS_ITS | Encounter Summary ---
Author Organization [employer] Address [address] [address] Care Team Providers Care Computer Technical Specialist Name Role Phone Clinician, Not Found MD Primary Care Provider Un available Reason for Visit * Reason Comments PHONE CALL TO PATIENT Encounter Details Date Type Department Care Team (Late st Contact Info) Description 12/19/2023 Telephone [place] 659600 Rheumatology [facility] [place], [place] [phone] Denise Davila MD [facility]0 [place], [place] [phone] PHONE CALL TO PATIENT Social History Tobacco [...] Sharita Henao - 12/19/2023 2:22 PM CDT [place] records received and placed in your inbox in [employer]. * Suri Stovall RN - 12/19/2023 10:24 AM CDT Spoke to patient, relaying provider's message below. Patient states that she notified the clinic yesterday to have results faxed over to us but she will reach out to them again today. * Denise Davila MD - 12/19/2023 9:59 AM CDT Please call to remind her to have outside records (from [facility] system) and lab results faxed to me to review documented in this encounter Plan of Treatment Upcoming Encounters Date Type Department Care Team (Late st Contact Info) Description 02/26/2024 11:00 AM CDT Appointment [facility] [address] [place] [address] Denise Davila MD [address] [place] [address] 04/25/2024 12:00 PM CDT Appointment [facility] [address] [place] [address] Denise Davila MD [address] [place] [address] documented as of this encounter Visit Diagnoses Not on filedocumented in this encounter Care Teams Computer Technical Specialist Relationship Specialty Start Date End Date Clinician, Not Found, [place] [address] PCP - General 03/01/18 documented as of this encounter
--- OUTSIDE RECORDS SUMMARY | 2024-01-23 15:24 | XMS_ITS | Encounter Summary ---
Author Organization [facility] Address [address] [place] [address] Care Team Providers Care Layout Inspector Name Role Phone Clinician, Not Found MD Primary Care Provider Un available Encounter Details Date Type Department Care Team (Late st Contact Info) Description 12/18/2023 3:10 PM CDT Lab Visit [facility] [address] [place] [address] Arthralgia, unspecified joint Social History Tobacco Use [...] Info) Description 02/26/2024 11:00 AM CDT Appointment [facility] [address] [place] [address] Denise Davila MD [address] [place] [facility] [place] [phone] 04/25/2024 12:00 PM CDT Appointment [facility] [address] [place] [address] Denise Davila MD [address] [place], [place] [phone] documented as of this encounter Procedures Procedure [...] - 168 U/L 12/20/2023 10:13 AM CDT [facility] Blood Venipuncture / Unknown 12/18/2023 3:21 PM CDT 12/18/2023 3:21 PM CDT Denise Davila MD LAB_1 [facility] [address] * CCP Antibody (12/18/2023 3:21 PM CDT) Pathologist [facility] Anti-CCP Antibody 0.5 0.0 - 6.9 U/mL 12/19/2023 1:00 PM CDT [facility] Anti-CCP Antibody Interpretation Negative Negative 12/19/2023 1:00 PM CDT [facility] Blood Venipuncture / Unknown 12/18/2023 3:21 PM CDT 12/18/2023 3:21 PM CDT Narrative [facility] - 12/19/2023 1:00 PM CDT This result was obtained with the Phadia 250. Quantitative results cannot be directly compared to other manufacturers' methods. Denise Davila MD LAB_1 [facility] [address] * Rheumatoid Factor, Quant (12/18/2023 3:21 PM CDT) Rheumatoid Factor, Quantitative <15 <=30 IU/mL 12/18/2023 9:03 PM CDT [facility] Blood Venipuncture / Unknown 12/18/2023 3:21 PM CDT 12/18/2023 3:21 PM CDT Denise Davila MD LAB_1 Performing Organization Address [facility]/ZIP Co de Phone Number [facility] [address] * Sedimentation Rate (ESR) (12/18/2023 3:21 PM CDT) [facility] Sedimentation Rate 12 0 - 20 mm/hr 12/18/2023 3:55 PM CDT [facility] Blood Venipuncture / Unknown 12/18/2023 3:21 PM CDT 12/18/2023 3:21 PM CDT Denise Davila MD LAB_1 [facility] [address] [place] [address] * (ABNORMAL) C-Reactive Protein (12/18/2023 3:21 PM CDT) Pathologist [facility] C-Reactive Protein 1.4(H) 0.0 - 0.5 mg/dL 12/18/2023 5:10 PM T [facility] Blood Venipuncture / Unknown 12/18/2023 3:21 PM CDT 12/18/2023 3:21 PM CDT Denise Davila MD LAB_1 [facility] [address] [place] [address] * (ABNORMAL) Protein ELP (Serum) (12/18/2023 3:21 PM CDT) Total Protein 6.9 6.4 - 8.3 g/dL 12/20/2023 10:36 AM T [facility] Albumin 4.3 3.4 - 4.8 g/dL 12/20/2023 10:36 AM [facility] Alpha 1 0.4 0.2 - 0.5 g/dL 12/20/2023 10:36 AM T [facility] Alpha 2 0.9 0.5 - 1.1 g/dL 12/20/2023 10:36 AM T [facility] Beta 0.7 0.6 - 1.1 g/dL 12/20/2023 10:36 AM [facility] Gamma 0.6(L) 0.7 - 1.6 g/dL 12/20/2023 10:36 AM [facility] Monoclonal Vahid 0.0 <=0.0 g/dL 12/20/2023 10:36 AM [facility] Interpretation Borderline hypogammaglobuli nemia. Consider urine immunofixation to rule out Bence Orozco proteinuria. 12/20/2023 10:36 AM [facility] Signed Out By [facility] 12/20/2023 10:36 AM [facility] Blood Venipuncture / Unknown 12/18/2023 3:21 PM CDT 12/18/2023 3:21 PM CDT Denise Davila MD LAB_1 [email or web address] [address] [place], [place] [address] documented in this encounter Visit Diagnoses Diagnosis Arthralgia, unspecified joint documented in this encounter Care Teams Layout Inspector Relationship Specialty Start Date End Date Clinician, Not Found, [place] [address] PCP - General 03/01/18 documented as of this encounter
--- OUTSIDE RECORDS SUMMARY | 2024-01-23 15:24 | XMS_ITS | Encounter Summary ---
Author Organization [employer] Address [address] [place] [address] Care Team Providers Care Surgical Specialist Name Role Phone Clinician, Not Found MD Primary Care Provider Un available Reason for Visit * Reason Comments Follow-up Encounter Details Date Type Department Care Team (Late st Contact Info) Description 12/18/2023 2:30 PM CDT Office Visit [facility] [address] [place] [address] Denise Davila MD [facility] [place], [place] [id number] Chronic tophaceous gout (Primary Dx); Osteoarthritis of [...] with her primary care provider in the [facility] system. She was told to have elevated [...] Info) Description 02/26/2024 11:00 AM CDT Appointment [facility] [address] [place] [address] Denise Davila MD [address] [place] [address] 04/25/2024 12:00 PM CDT Appointment [facility] [address] [place] [address] Denise Davila MD [address] [place], [place] [phone] documented as of this encounter Results * CCP Antibody (12/18/2023 3:21 PM CDT) [facility] Anti-CCP Antibody 0.5 0.0 - 6.9 U/mL 12/19/2023 1:00 PM CDT [facility] Anti-CCP Antibody Interpretation Negative Negative 12/19/2023 1:00 PM CDT [facility] Blood Venipuncture / Unknown 12/18/2023 3:21 PM CDT 12/18/2023 3:21 PM CDT Narrative [facility] - 12/19/2023 1:00 PM CDT This result was obtained with the Phadia 250. Quantitative results cannot be directly compared to other manufacturers' methods. Denise Davila MD LAB_1 [facility] [address] * Rheumatoid Factor, Quant (12/18/2023 3:21 PM CDT) [facility] Rheumatoid Factor, Quantitative <15 <=30 IU/mL 12/18/2023 9:03 PM CDT [facility] Blood Venipuncture / Unknown 12/18/2023 3:21 PM CDT 12/18/2023 3:21 PM CDT Denise Davila MD LAB_1 [facility] [address] [place], [place] [address] * Sedimentation Rate (ESR) (12/18/2023 3:21 PM CDT) Pathologist [facility] Sedimentation Rate 12 0 - 20 mm/hr 12/18/2023 3:55 PM CDT [facility] Blood Venipuncture / Unknown 12/18/2023 3:21 PM CDT 12/18/2023 3:21 PM CDT Denise Davila MD LAB_1 Performing Organization Address [facility]/ZIP Co de Phone Number [address] [phone] * (ABNORMAL) C-Reactive Protein (12/18/2023 3:21 PM CDT) Pathologist [facility] C-Reactive Protein 1.4(H) 0.0 - 0.5 mg/dL 12/18/2023 5:10 PM CDT [facility] Blood Venipuncture / Unknown 12/18/2023 3:21 PM CDT 12/18/2023 3:21 PM CDT Denise Davila MD LAB_1 Performing Organization Address [facility]/ZIP Co de Phone Number [address] [phone] * (ABNORMAL) Protein ELP (Serum) (12/18/2023 3:21 PM CDT) Pathologist [facility] Total Protein 6.9 6.4 - 8.3 g/dL 12/20/2023 10:36 AM CDT [facility] Albumin 4.3 3.4 - 4.8 g/dL 12/20/2023 10:36 AM CDT [facility] Alpha 1 0.4 0.2 - 0.5 g/dL 12/20/2023 10:36 AM CDT [facility] Alpha 2 0.9 0.5 - 1.1 g/dL 12/20/2023 10:36 AM CDT [facility] Beta 0.7 0.6 - 1.1 g/dL 12/20/2023 10:36 AM CDT [facility] Gamma 0.6(L) 0.7 - 1.6 g/dL 12/20/2023 10:36 AM CDT [facility] Monoclonal Vahid 0.0 <=0.0 g/dL 12/20/2023 10:36 AM CDT [facility] Interpretation Borderline hypogammaglobuli nemia. Consider urine immunofixation to rule out Bence Orozco proteinuria. 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
--- OUTSIDE RECORDS SUMMARY | 2024-01-23 15:24 | XMS_ITS | Encounter Summary ---
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 Procedures DXA Bone Density Spine/Hip Denise Davila MD [address] [place] [address] Referral ID Status Reason Start Date Expiration Date V isits Requested Visits Authorized [id number] Incomplete 01/15/2024 04/15/2025 1 1 Reason for Visit * Reason Comments Follow-up Encounter Details Date Type Department Care Team (Late st Contact Info) Description 01/15/2024 2:30 PM CDT Office Visit [facility] [address] [place] [address] Denise Davila MD [address] [place], [place] [phone] PMR (polymyalgia rheumatica) (HRC) (Primary Dx); Chronic tophaceous gout; Osteoarthritis of multiple joints, unspecified osteoarthritis type; 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; Persistent atrial fibrillation (HRC) Social History Tobacco Use Types Packs/Day [...] Sign Reading Time Taken Comments Blood Pressure 114/79 01/15/2024 2:24 PM CDT Pulse 140 01/15/2024 2:24 PM CDT Temperature - - Respiratory Rate - - Oxygen Saturation - - Inhaled Oxygen Concentration - - Weight 72.6 kg (160 lb) 01/15/2024 2:24 PM CDT Height - - Body Mass Index 26.83 03/29/2018 9:30 AM CDT documented in this encounter Progress Notes * Denise Davila MD - 01/15/2024 2:30 PM CDT SUBJECTIVE: Follow-up for clinical polymyalgia rheumatica, background history of 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 History of present illness: This is a 4-week follow-up for the patient. At the last clinic visit, she described symptoms of significant girdle stiffness associated with elevated sed rate and CRP evaluated through her primary care provider. She had a good response with the use of prednisone. She hastapered prednisone down to the current dose of 17.5 mg a day. She has continued to do well for her PMR related symptoms. She has no cranial symptoms to suggest temporal arteritis. Her sed rate and CRP performed 2 days ago became normalized. She also takes allopurinol 200 mg a day which has kept serum uric acid less than 5 but not less than 3 with a complete resolution of the tophi and being clinically gout free. Since I last saw her, she has been diagnosed as atrial fibrillation and has been put on metoprolol and Eliquis. She is about to see her reciprocating drill operator in 2 days. She was also found to have pneumonia. At the same time, her transaminases were found to be elevated. They became normalized a week later. She finished antibiotic for her pneumonia with improvement. She has been afebrile with no pleuritic chest pain, discolored phlegm or unusual cough. Past medical history, family and social history, current medications and adverse reactions were updated in EMR. Physical exams: BP 114/79 (BP Location: Right Arm, BP Cuff Size: Large) Pulse (!) 140 Wt 160 lb(72.6 kg) BMI 26.83 kg/m?? General appearance: An elderly female who was not in acute physical distress. Skin: No clinical tophus/tophi. Musculoskeletal exams: All 4 extremities were examined. Osteoarthritic changes finger knuckles. No significant synovitis/inflammatory arthritis/dactylitis or effusion in any joints. Assessment and plan: 1. Polymyalgia Rheumatica, doing well. 2. Chronic low-dose prednisone. 3. 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 4. Recently diagnosed atrial fibrillation. Her PMR related symptoms have significantly improved and the inflammatory markers have been normalized. I would recommend that she taper prednisone further down by 2.5 mg every 2 weeks to 10 mg a dayand she will stay at that dose. Counseled her on calcium and vitamin-D supplement, fall precaution and maintaining weight-bearing activities. Will schedule her to have a bone density. Depending on results, I will make a decision if she needs an anti resorptive treatment. She will also continue allopurinol 200 mg a day. Her tophi have resolved. Follow up again in 6 weeks. Will follow up her inflammatory markers as well on the same day. 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 Expected: 01/15/2024 (Approximate), Expires: 01/14/2025 documented as of this encounter Results * (ABNORMAL) Creatinine / GFR (01/11/2024 10:22 AM CDT) Creatinine 1.79(H) 0.55 - 1.02 mg/dL 01/15/2024 5:35 PM CDT [facility] GFR, Estimated 28(L) >60 mL/min/1.7 3m2 01/15/2024 5:35 PM CDT [facility] Blood Venipuncture / Unknown 01/11/2024 10:22 AM CDT 01/11/2024 10:22 AM CDT Denise Davila MD LAB_1 [facility] [address] [place] [address], [facility] documented in this encounter Visit Diagnoses Diagnosis PMR (polymyalgia rheumatica) (HRC)- Primary Polymyalgia rheumatica 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
--- OUTSIDE RECORDS SUMMARY | 2024-01-23 15:24 | XMS_ITS | Clinical Summary ---
Author Organization [facility] Address [address], [place] [address] Care Team Providers Care Torch Solderer Name Role Phone Clinician, Not Found MD Primary Care Provider Un available Source Comments You are receiving this document as you are listed as the primary care provider,follow-up provider, or the patient has been referred to you for consultation.This is in compliance with the Medicare and[facility] Hospital[facility] EHR Incentive Program,which states Providers who transition their patient to another setting of careor provider of care or refers their patient to another provider of care shouldprovide summary care record for each transition of care or referral. [facility] Allerg[facility] Active Allergy Reactions Criticality Noted Date [...] 3 3 Active traMADol (ULTRAM) 50 MG tabletIndications: Osteoarthritis of multiple joints, unspecified osteoarthritis type TAKE [...] (DELTASONE) 5 MG tablet All in am: 17.5 mg a day (3.5 tabs) for 2 weeks, 15 mg a day( 3 tabs) x 2 wk, 12.5 mg/d (2.5 tabs) x 2 wk, then stay 10 mg/d (2 tabs). (New instruction as of 01/15/2024) 250 Tablet 1 4 Active ELIQUIS 2.5 MG tablet Take 1 Tablet (2.5 mg) by mouth two times a day. 4 Active Methylcobalamin 1 MG CHEW Chew and swallow 1 Tablet (1 mg) by mouth daily. 4 Active predniSONE (DELTASONE) 20 MG tablet Take 1 Tablet (20 mg) by mouth daily. 4 024 Discontinued predniSONE (DELTASONE) 5 MG tablet All in am: 25 mg a day (5 tabs) for 2 weeks, 20 mg a day f(4 tabs) or 2 weeks, 17.5 mg a day (3.5 tabs) for 2 weeks, then she will stay at 15 mg a day( 3 tabs). (New instruction as of 12/20/2023) 250 Tablet 1 4 024 Discontinued(*M ed change OR same med OR reorder, new dose/directions ) cefdinir (OMNICEF) 300 MG capsule Take 1 Capsule (300 mg) by mouth two times a day. 024 Discontinued Active Problems Problem Noted Date Diagnosed Date PMR (polymyalgia rheumatica) 01/15/2024 roasterman 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 01/14 Persistent atrial fibrillation 01/15/2024 Chronic tophaceous gout 10/01/2020 Renal insufficiency 10/01/2020 Hyperuricemia 09/10/2020 S/P total knee arthroplasty, bilateral 8 S/P appendectomy 03/29/2018 Restless legs syndrome (RLS) 03/29/2018 Chronic left shoulder pain 03/29/2018 Psoriatic arthritis 03/29/2018 Sensorineural hearing loss 02/22/2005 Overview: LW Onset: [id number] ; Hearing Loss Sensorineural Undiagnosed cardiac murmurs 02/22/2005 Overview: LW Modifier: functional LW Onset: [id number] ; Heart Murmur Right bundle branch block 02/22/2005 Overview: LW Onset: [id number] Obesity 05/04/2004 Overview: LW Onset: [id number] Essential hypertension 01/17/2003 Overview: Hypertension Hypothyroidism 01/17/2003 Overview: Hypothyroidism Acquired Osteoarthritis 01/17/2003 Overview: DJD Chronic kidney disease, stage 3b Encounters Date Type Department Care Team Description 01/15/2024 2:30 PM CDT Office Visit [facility] [address] [place] [address] Denise Davila MD PMR (polymyalgia rheumatica) (HRC) (Primary Dx); Chronic tophaceous gout; Osteoarthritis of multiple joints, unspecified osteoarthritis type; FCI 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 [place] [address] Denise Davila MD 12/20/2023 Notes/Orders [place] [address] [place] [address]. [place] [address] Denise Davila MD Arthralgia, unspecified joint (Primary Dx); PMR (polymyalgia rheumatica) (HRC) 12/19/[address] [place] [address] Denise Davila MD PHONE CALL TO PATIENT 12/18/2023 3:10 PM CDT Lab Visit [address] [address] Arthralgia, unspecified joint 12/18/2023 2:30 PM CDT Office Visit [address] [address] Denise Davila MD Chronic tophaceous gout (Primary Dx); Osteoarthritis of multiple joints, unspecified osteoarthritis type; Arthralgia, unspecified joint 11/13/[address] [address] Denise Davila MD Refill from Last 3 Months Immunizations Name Administration Dates Next Due Flu Vac Preserv Free (3+yrs) 04/21/2013, 04/28/2009,05/21/2006,2004,05/04/2004 Influenza IIV3 (Trivalent) F ramiro Jalloh, 65+ Yrs (90360) 06/15/2020,07/01/2019,05/27/2018,2017,05/30/2017,05/15/2016,04/28/2014 Influenza IIV4 (Quadrivalent ) Fluad, 65+ [...] Pulse 140 01/15/2024 2:24 PM CDT Temperature 35.9 ??C (96.6 ??F) 09/29/2022 9:47 AM CS T Respiratory Rate - - Oxygen Saturation - - Inhaled Oxygen Concentration - - Weight 72.6 kg (160 lb) 01/15/2024 2:24 PM CDT Height 164.5 cm (5' 4.75) 03/29/2018 9:30 AM CD T Body Mass Index 26.83 03/29/2018 9:30 AM CDT Plan of Treatment Upcoming Encounters Date Type Department Care Team (Late st Contact Info) Description 02/26/2024 11:00 AM CDT Appointment [facility] [address] [place] [address] Denise Davila MD [address] [place] [address] 04/25/2024 12:00 PM CDT Appointment [facility] [address] [place], [place] [phone] Denise Davila MD [address] [place] [address] Health Maintenance Due Date Last Done Comments [...] 10:2 2 AM CDT Chronic tophaceous gout SEDIMENTATION RATE (ESR) Routine 01/11/2024 10:22 AM CDT PMR (polymyalgia rheumatica) (HRC) C-REACTIVE PROTEIN Routine 01/11/2024 10 :22 AM CDT PMR (polymyalgia rheumatica) (HRC) LABORATORY REPORT 01/02/2024 EXT RSLT - SCANNED [...] joint from Last 3 Months Results * (ABNORMAL) Creatinine / GFR (01/11/2024 10:22 AM CDT) [facility] Creatinine 1.79(H) 0.55 - 1.02 mg/dL 01/15/2024 5:35 PM CDT [facility] GFR, Estimated 28(L) >60 mL/min/1.7 3m2 01/15/2024 5:35 PM CDT [facility] Blood Venipuncture / Unknown 01/11/2024 10:22 AM CDT 01/11/2024 10:22 AM CDT Denise Davila MD LAB_1 Performing Organization Address [facility] de Phone Number [facility] [address] [place] [address] * C-Reactive Protein (01/11/2024 10:22 AM CDT) Only the most recent of2 resultswithin the time period is included. C-Reactive Protein <0.5 0.0 - 0.5 mg/dL 01/11/2024 11:45 AM CDT [facility] Blood Venipuncture / Unknown 01/11/2024 10:22 AM CDT 01/11/2024 10:22 AM CDT Denise Davila MD LAB_1 Performing Organization Address [facility] Phone Number [facility] [id number] [place] [phone] * Sedimentation Rate (ESR) (01/11/2024 10:22 AM CDT) Only the most recent of2 resultswithin the time period is included. Sedimentation Rate 3 0 - 20 mm/hr 01/11/2024 11:05 AM CDT [facility] Blood Venipuncture / Unknown 01/11/2024 10:22 AM CDT 01/11/2024 10:22 AM CDT Denise Davila MD LAB_1 Performing Organization Address [facility] de Phone Number [facility] [address] [place] [phone] * LABORATORY REPORT (01/02/2024) Interface Provider DUMMY/OTHER/AR * Sedimentation Rate (Ext Rslt) (12/21/2023 9:22 AM CDT) EXT RSLT - SED RATE (ESR) 18 1 - 20 mm/hr PN EXTERNAL LAB-SEE SCANNED DOCUMENT 12/21/2023 9:22 AM CDT Denise Davila MD LAB EXTERNAL R ESULT Performing Organization Address [facility] de Phone Number PN EXTERNAL LAB-SEE SCANNED DOCUMENT Do Not Mail * Creatinine (Ext Rslt) (12/21/2023 9:22 AM CDT) EXT RSLT - CREATININE 1.4 0.5 - 1.5 mg/dL PN EXTERNAL LAB-SEE SCANNED DOCUMENT 12/21/2023 9:22 AM CDT Denise Davila MD LAB EXTERNAL R ESULT Performing Organization Address [facility] de Phone Number PN EXTERNAL LAB-SEE SCANNED DOCUMENT Do Not Mail * Scanned result (Ext Rslt) (12/21/2023 9:22 AM CDT) Ext Rslt - Scanned CRP PN EXTERNAL LAB-SEE SCANNED DOCUMENT 12/21/2023 9:22 AM CDT Denise Davila MD LAB EXTERNAL R ESULT Performing Organization Address [facility] de Phone Number PN EXTERNAL LAB-SEE SCANNED DOCUMENT Do Not Mail * (ABNORMAL) AST (Ext Rslt) (12/21/2023 9:22 AM CDT) EXT RSLT - AST 181(H) 12 - 35 U/L PN EXTERNAL LAB-SEE SCANNED DOCUMENT 12/21/2023 9:22 AM CDT Denise Davila MD LAB EXTERNAL R ESULT Performing Organization Address [facility] de Phone Number PN EXTERNAL LAB-SEE SCANNED DOCUMENT Do Not Mail * (ABNORMAL) ALT (Ext Rslt) (12/21/2023 9:22 AM CDT) EXT RSLT - ALT 192(H) 4 - 35 U/L PN E XTERNAL LAB-SEE SCANNED DOCUMENT 12/21/2023 9:22 AM CDT Denise Davila MD LAB EXTERNAL R ESULT PN EXTERNAL LAB-SEE SCANNED DOCUMENT Do Not Mail * CCP Antibody (12/18/2023 3:21 PM CDT) Anti-CCP Antibody 0.5 0.0 - 6.9 U/mL 12/19/2023 1:00 PM CDT [facility] Anti-CCP Antibody Interpretation Negative Negative 12/19/2023 1:00 PM CDT [facility] Blood Venipuncture / Unknown 12/18/2023 3:21 PM CDT 12/18/2023 3:21 PM CDT Narrative [facility] - 12/19/2023 1:00 PM CDT This result was obtained with the Phadia 250. Quantitative results cannot be directly compared to other manufacturers' methods. Denise Davila MD LAB_1 Performing Organization Address [facility] de Phone Number [facility] [address] * (ABNORMAL) Protein ELP (Serum) (12/18/2023 3:21 PM CDT) Total Protein 6.9 6.4 - 8.3 g/dL 12/20/2023 10:36 AM CDT [facility] Albumin 4.3 3.4 - 4.8 g/dL 12/20/2023 10:36 AM CDT [facility] Alpha 1 0.4 0.2 - 0.5 g/dL 12/20/2023 10:36 AM CDT [facility] Alpha 2 0.9 0.5 - 1.1 g/dL 12/20/2023 10:36 AM CDT [facility] Beta 0.7 0.6 - 1.1 g/dL 12/20/2023 10:36 AM CDT [facility] Gamma 0.6(L) 0.7 - 1.6 g/dL 12/20/2023 10:36 AM CDT [facility] Monoclonal Vahid 0.0 <=0.0 g/dL 12/20/2023 10:36 AM CDT [facility] Interpretation Borderline hypogammaglobuli nemia. Consider urine immunofixation to rule out Bence Orozco proteinuria. 12/20/2023 10:36 AM CDT [facility] Signed Out By [facility] 12/20/2023 10:36 AM CDT [facility] Blood Venipuncture / Unknown 12/18/2023 3:21 PM CDT 12/18/2023 3:21 PM CDT Denise Davila MD LAB_1 [facility] [address] * Rheumatoid Factor, Quant (12/18/2023 3:21 PM CDT) Pathologist [facility] Rheumatoid Factor, Quantitative <15 <=30 IU/mL 12/18/2023 9:03 PM CDT [facility] Blood Venipuncture / Unknown 12/18/2023 3:21 PM CDT 12/18/2023 3:21 PM CDT Denise Davila MD LAB_1 [facility] [address] * CK, Total (12/18/2023 3:21 PM CDT) Pathologist [facility] CK, Total 65 29 - 168 U/L 12/20/2023 10:13 AM CDT [facility] Blood Venipuncture / Unknown 12/18/2023 3:21 PM CDT 12/18/2023 3:21 PM CDT Denise Davila MD LAB_1 [facility] [address] [address], [facility] from Last 3 Months Care Teams Torch Solderer Relationship Specialty Start Date End Date Clinician, Not Found, [place] [address] PCP - General 03/01/18
--- OUTSIDE RECORDS SUMMARY | 2024-01-23 15:25 | XMS_ITS | Clinical Summary ---
Author Organization [facility] Address [place], [place] [address] Care Team Providers Care It Sales Representative Name Role Phone Tamera Jimenez MD Primary [...] right foot with fat layer exposed (HC) [phone] Squared Toe Post OP Shoe, Small 1 [...] Encounters Date Type Department Care Team Description 01/17/2024 11:00 AM CDT Office Visit [facility] [address] [place] [address] Vu Torres MD Arrived 12/28/2023 9:00 AM CDT Ancillary Procedure [facility] [address] [place] [address] 12/12/2023 11:30 AM CDT Office Visit [facility] [address] [place] [address] Toney Winchester DPM Ulcer (Follow up-right foot) 12/12/2023 Travel 11/28/2023 1:00 PM CDT Office Visit [facility] [address] [place] [address] Toney Winchester DPMary Ann Ulcer (Follow up-right foot) 11/28/2023 Travel 11/14/2023 2:45 PM CDT Office Visit [facility] [address] [place] [address] Toney Winchester DPMary Ann Follow Up (Right ulcer , 3 week follow up) 11/14/2023 Travel 10/24/2023 11:00 AM CDT Office Visit [facility] [address] [place] [address] Toney Winchester DPM Consult (Right foot wound [...] pur e alcohol) 4-5 drinks per week Social Connections Answer Date Recorded Frequency of Communication with Friends and Fami ly Not on file 01/17/2024 Sex and Gender Information Value Date Recorded [...] ST Respiratory Rate 16 10/19/2021 12:29 PM HOME HEALTH NURSE Oxygen Saturation 100% 12/12/2023 11:36 AM CDT Inhaled Oxygen Concentration - - Weight 66.2 kg (146 lb) 12/12/2023 11:36 AM CDT Height 162.6 cm (5' 4) 10/18/2021 7:55 AM HOME HEALTH NURSE Body Mass Index 25.06 10/18/2021 7:55 AM HOME HEALTH NURSE Plan of Treatment Health Maintenance Due Date [...] 09/24/2019, 03/26/2009 Medical Devices Implanted Type Area Paper Bag Maker Device Identifier Shelf Expiration Date Model / Serial / Lot Simplex P Bone Cement - Half Dose Implanted:Qty: 2 on 10/18/2021 by Kevin Hogue MD at [facility] Left: Knee [employer] 07/12/2023 / 6188-1-001 / [id number] Triathlon Femoral Posterior Augment Implanted:Qty: 1 on 10/18/2021 by Kevin Hogue MD at [facility] Left: Knee [employer] 06/01/2025 / [id number]-A-400 / [id number] Simplex P Bone Cement Full Dose Implanted:Qty: 2 on 10/18/2021 by Kevin Hogue MD at [facility] Left: Knee [employer] 09/12/2023 / [id number] / [id number] Triathlon Fluted Stem - Tibia Implanted:Qty: 1 on 10/18/2021 by Kevin Hogue MD at [facility] Left: Knee [employer] 10/09/2025 / [id number] / [id number] Triathlon Tritanium Tibial Symmetric Cone Augment Implanted:Qty: 1 on 10/18/2021 by Kevin Hogue MD at [facility] Left: Knee [employer] 05/04/2026 / [id number] / [id number] Triathlon Total Knee Rochert Tibial Baseplate Implanted:Qty: 1 on 10/18/2021 by Kevin Hogue MD at [facility] Left: Knee [employer] 12/19/2025 / [id number] / [id number] Triathlon Fluted Stem - Femur Implanted:Qty: 1 on 10/18/2021 by Kevin Hogue MD at [facility] Left: Knee [employer] 06/15/2025 / [id number] / [id number] Triathlon Total Stabilizer Femoral Component Implanted:Qty: 1 on 10/18/2021 by Kevin Hogue MD at [facility] Left: Knee [employer] 01/16/2026 / [id number] / [id number] Triathlon X3 Total Stablizer+ Tibial Insert Implanted:Qty: 1 on 10/18/2021 by Kevin Hogue MD at [facility] Left: Knee [employer] 08/31/2026 / [id number] -[id number] / [id number] Triathlon Femoral Posterior Augment Implanted:Qty: 1 on 10/18/2021 by Kevin Hogue MD at [facility] Left: Knee [employer] 09/05/2025 / [id number]-A-[id number] / [id number] Procedures [...] Narrative 12/28/2023 10:52 AM CDT ECHOCARDIOGRAM ABIMBOLA SAMUELS ? Accession#: ?? [id number] : ?1940 83 years Study Date: ?? 12/28/2023 9:13:23 AM Gender: F ?BP: ? 147/88 mmHg Height: 163.00 cm ?BSA: ?1.71 m? ? ? Weight: 66.00 kg ? Tech: ? MBF ? Referring MD: TAMERA JIMENEZ Site: ? [facility] Reading Location: [facility] Patient Location: Outpatient. Procedure: 2D, [...] AM. This study was interpreted by an [facility] accredited facility. CC: HIM (med records) [facility]. ??Final (Updated) ?? Procedure Note Chandrakant Tomas MD - 12/28/2023 ECHOCARDIOGRAM ABIMBOLA SAMUELS : 1940 83 years Study Date: 12/28/2023 9:13:23 AM Gender: F BP: 147/88 mmHg Height: 163.00 cm BSA: 1.71 m? ? ? Weight: 66.00 kg Tech: [facility] Referring MD: TAMERA JIMENEZ Site: [facility] Reading Location: [place] [facility] Patient Location: Outpatient. Procedure: 2D, Color [...] interpreted by an [facility] accredited facility. CC: HIM (med records) [facility]. Final (Updated) Tamera Jimenez MD ECHO ORD from Last 3 Months Advance Directives Documents on File Type Date Recorded Patient Privacy Director Expl anation Healthcare Directive 10/20/2021 8:51 AM [...] Preferences, Provider to review later Care Teams It Sales Representative Relationship Specialty Start Date End Date Tamera Jimenez MD [address] [place] [address] PCP - General Family Practice 10/24/23
--- OUTSIDE RECORDS SUMMARY | 2024-01-23 15:25 | XMS_ITS | Encounter Summary ---
Author Organization [facility] Address [address] [place] [address] Care Team Providers Care Water Regulator And Valve Repairer Name Role Phone Clinician, Not Found MD Primary Care Provider Un available Reason for Visit * Reason Comments Refill Encounter Details Date Type Department Care Team (Late st Contact Info) Description 11/13/2023 Refill [facility] [address] [place], [place] [phone] Denise Davila MD [address] [place] [address] Refill Social History Tobacco Use [...] Info) Description 02/26/2024 11:00 AM CDT Appointment [facility] [address] [place] [address] Denise Davila MD [address] [place] [address] 04/25/2024 12:00 PM CDT Appointment [facility] [address] [place] [address] Denise Davila MD [address] [place] [address] documented as of this encounter Visit Diagnoses Diagnosis Osteoarthritis of multiple joints, unspecified osteoarthritis type documented in this encounter Care Teams Water Regulator And Valve Repairer Relationship Specialty Start Date End Date Clinician, Not Found, [place] [address] PCP - General 03/01/18 documented as of this encounter
[2024-01-23 15:32] LABS: Hematocrit 41.7 % (33.0-51.0); Hemoglobin* 13.2 gm/dL (12.0-16.0); Immature Granulocytes Pct Auto 0.5 %; Lymphocytes Percent Auto 5.1 % (20-44); Mean Corpuscular HGB Conc 32 gm/dL (32-36); Mean Corpuscular Hemoglobin 33 pg (26-34); Mean Corpuscular Volume 106 fL (80-100); Monocytes Percent Auto 4.1 % (0.0-11.0); Neutrophils Percent Auto 90.3 % (42.0-72.0); Platelet Count* 137 K/uL (140-440); RDW Coefficient of Variation % 15.3 % (11.5-15.5); Red Blood Count 3.95 m/uL (4.00-5.20); White Blood Count* 17.82 K/uL (4.50-11.00)
--- NOTE | 2024-01-23 15:32 | ED.GENADULT ---
HPI - General Adult General Chief complaint: Arrhythmia/Palpitations Stated complaint: Elevated heartrate Time Seen by Provider: 01/23/24 14:45 History of Present Illness HPI narrative: Patient is an 83 white female that was sent by Dr. Her López to the ER for atrial fib with rapid ventricular rate her heart was in the 160 range. She feels pretty asymptomatic, she has had this now with shortness of breath on exertion likely caused by AFib with rapid rate since . Looks from the chart review lid . Her work started on Eliquis on the 10 of December. Family is confirming when she actually started the Eliquis. And they will check with [facility]. The patient reports she has 4 more days of Eliquis now but needs to be scheduled for cardioversion as she start Dr. Sol mccormack and that was going to be arranged at [facility]. She has yet to have that confirmed. Our staff years calling [facility] to see if we can find out when she is scheduled to have her cardioversion. As she has now been on Eliquis for over a month. Patient really feels asymptomatic she really did want to come to the ER. Heart rate is anywhere between 101 65 in the ER on telemetry. She is and asymptomatic as mention. She has had no fever, chills, chest pain, shortness of breath or dizziness. Related Data Home Medications ?Medication ?Instructions ?Recorded ?Confirmed allopurinol 100 mg tablet 200 mg PO QDAY 10/02/22 01/23/24 mecobalamin (vitamin B12) 1,000 1,000 mcg PO QDAY 12/26/23 01/23/24 mcg chewable tablet prednisone 20 mg tablet See Rx Instructions PO QDAY 12/26/23 01/23/24 apixaban 2.5 mg tablet (Eliquis) 2.5 mg PO BID 01/23/24 01/23/24 metoprolol tartrate 50 mg tablet 25 mg PO BID 01/23/24 01/23/24 Previous Rx's ?Medication ?Instructions ?Recorded furosemide 20 mg tablet 20 mg PO .Daily as needed PRN 07/24/22 edema #30 tabs triamcinolone acetonide 0.1 % 1 applic topical BID #30 grams 03/07/23 topical cream amlodipine 5 mg tablet 5 mg PO DAILY #90 tabs 08/16/23 atorvastatin 40 mg tablet 40 mg PO .Bedtime #90 tabs 08/16/23 chlorthalidone 25 mg tablet 25 mg PO DAILY #90 tabs 08/16/23 levothyroxine 75 mcg tablet 75 mcg PO DAILY #90 tabs 08/16/23 lisinopril 40 mg tablet 40 mg PO DAILY #90 tabs 08/16/23 omeprazole 20 mg capsule,delayed 20 mg PO DAILY #90 caps 08/16/23 release Allergies Allergy/AdvReac Type Severity Reaction Status Date / Time propoxyphene Allergy Severe Weakness Verified 01/23/24 15:00 Review of Systems Status of ROS: Reports: 6 or more systems reviewed and unremarkable except as noted in History and below [facility] Medical History Weight loss (~11/2022) ?R63.4 - Abnormal weight loss (ICD-10) Elevated CK ?R74.8 - Abnormal levels of other serum enzymes (ICD-10) Shoulder pain, bilateral ?M25.511 - Pain in right shoulder (ICD-10) ?M25.512 - Pain in left shoulder (ICD-10) Polymyalgia rheumatica (11/30/23) ?M35.3 - Polymyalgia rheumatica (ICD-10) Diarrhea (01/07/23) ?R19.7 - Diarrhea, unspecified (ICD-10) Eczema ?L30.9 - Dermatitis, unspecified (ICD-10) GERD (gastroesophageal reflux disease) ?K21.9 - Gastro-esophageal reflux disease without esophagitis (ICD-10) Normal coronary angiogram Rheumatoid arthritis (2008) ?M06.9 - Rheumatoid arthritis, unspecified (ICD-10) Restless legs syndrome ?G25.81 - Restless legs syndrome (ICD-10) Hypothyroidism ?E03.9 - Hypothyroidism, unspecified (ICD-10) Hypertension ?I10 - Essential (primary) hypertension (ICD-10) Hyperlipidemia (03/26/09) ?E78.5 - Hyperlipidemia, unspecified (ICD-10) Edema ?R60.9 - Edema, unspecified (ICD-10) Surgical History Adenomatous colon polyp (03/20/23) ?D12.6 - Benign neoplasm of colon, unspecified (ICD-10) History of endoscopy (03/20/23) ?Z98.890 - Other specified postprocedural states (ICD-10) 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) ?Z96.651 - Presence of right artificial knee joint (ICD-10) History of revision of total knee arthroplasty (~10/19/21) ?Z96.659 - Presence of unspecified artificial knee joint (ICD-10) History of total left knee replacement (1999) ?Z96.652 - Presence of left artificial knee joint (ICD-10) History of total right knee replacement (1994) ?Z96.651 - Presence of right artificial knee joint (ICD-10) H/O hysterectomy with oophorectomy (1972) H/O lumpectomy (1972) ?Z98.890 - Other specified postprocedural states (ICD-10) H/O cataract extraction (~2013) ?Z98.49 - Cataract extraction status, unspecified eye (ICD-10) H/O foot surgery ?Z98.890 - Other specified postprocedural states (ICD-10) History of tonsillectomy (1944) ?Z90.89 - Acquired absence of other organs (ICD-10) History of appendectomy (1956) ?Z90.49 - Acquired absence of other specified parts of digestive tract (ICD-10) Family History Brother Cancer of kidney, Onset Age: 57 Mother Stroke, Onset Age: 87 Father Myocardial infarction Heart disease, Onset Age: 78 Sister Stroke, Onset Age: 85 Cancer of kidney Brother Cancer of kidney, Onset Age: 76 Social History Narrative: , 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, 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 former smoker-quit around 1969 3 alcoholic drinks a week No formal exercise but cleans house uses stairs regularly Smoking Status: Former smoker What tobacco products do you use: cigarettes Smoking quit date/years: >15 years ago Do you use any of these nicotine containing products: None How often do you have a drink containing alcohol: 4 or more times a week Alcohol type: wine How many standard drinks containing alcohol do you have on a typical day: 1 or 2 How often do you have six or more drinks on one occasion: Never AUDIT-C Alcohol total score: 4 Non-prescribed substance use: denies use Caffeine: Yes (coffee, 1 cup/AM) Little interest or pleasure in doing things: not at all Feeling down, depressed, or hopeless: not at all Exam Narrative: Exam Narrative: Objective: Patient's vital signs show blood pressure 123/106 O2 sat is excellent in the upper 90s, pulse is between 115 and 160 Alert orient x3 No facial asymmetry Neck is supple Chest clear Heart irregular regular tachycardic rhythm 2/6 systolic murmur Abdomen benign soft Extremities are no edema neurologic nonfocal. Const: Vital Signs, click to edit/add: Vital Signs - 24 hr 01/23/24 14:55 01/23/24 14:56 01/23/24 14:57 Temperature 97.4 F L Pulse Rate 160 H 163 H Pulse Rate [Femora l] 168 H Respiratory Rate 20 Blood Pressure 123/106 H Blood Pressure [Ri ght Upper Arm] 123/106 H Pulse Oximetry 99 98 97 Oxygen Delivery Me thod Room Air 01/23/24 15:00 01/23/24 15:02 01/23/24 15:12 Temperature Pulse Rate 159 H 160 H 138 H Pulse Rate [Femora l] Respiratory Rate Blood Pressure 126/90 H 132/103 H Blood Pressure [Ri ght Upper Arm] Pulse Oximetry 98 96 98 Oxygen Delivery Me thod 01/23/24 15:12 01/23/24 15:15 01/23/24 15:22 Temperature Pulse Rate 138 H 156 H 160 H Pulse Rate [Femora l] Respiratory Rate Blood Pressure 132/103 H 115/85 Blood Pressure [Ri ght Upper Arm] Pulse Oximetry 98 97 98 Oxygen Delivery Me thod 01/23/24 15:30 01/23/24 15:31 01/23/24 15:32 Temperature Pulse Rate 139 H 119 H 133 H Pulse Rate [Femora l] Respiratory Rate Blood Pressure 110/90 H Blood Pressure [Ri ght Upper Arm] Pulse Oximetry 96 98 96 Oxygen Delivery Me thod 01/23/24 15:42 Temperature Pulse Rate 128 H Pulse Rate [Femora l] Respiratory Rate Blood Pressure 103/83 Blood Pressure [Ri ght Upper Arm] Pulse Oximetry 97 Oxygen Delivery Me thod Course Vital Signs Vital signs: Initial Vital Signs Temperature 97.4 F L 01/23/24 14:55 Temperature Source Temporal Artery Scan 01/23/24 14:55 Pulse Rate 168 H 01/23/24 14:55 Pulse Rhythm Irregular 01/23/24 14:55 Pulse Strength 3+ Normal 01/23/24 14:55 Respiratory Rate 20 01/23/24 14:55 Blood Pressure 123/106 H 01/23/24 14:55 Blood Pressure Mean 111 H 01/23/24 14:55 Blood Pressure Position Sitting 01/23/24 14:55 Pulse Oximetry 99 01/23/24 14:55 Oxygen Delivery Method Room Air 01/23/24 14:55 Vital Signs Temperature 97.4 F L 01/23/24 14:55 Pulse Rate 168 H 01/23/24 14:55 Respiratory Rate 20 01/23/24 14:55 Blood Pressure 123/106 H 01/23/24 14:55 Pulse Oximetry 99 01/23/24 14:55 Oxygen Delivery Method Room Air 01/23/24 14:55 Temperature 97.4 F L 01/23/24 14:55 Pulse Rate 140 H 01/23/24 16:15 Respiratory Rate 20 01/23/24 14:55 Blood Pressure 112/87 01/23/24 16:12 Pulse Oximetry 94 01/23/24 16:15 Oxygen Delivery Method Room Air 01/23/24 14:55 Medications Administered Medications: Discontinued Medications Generic Name Dose Route Start Last Admin Trade Name Freq PRN Reason Stop Dose Admin Metoprolol Tartrate 5 mg 01/23/24 15:16 01/23/24 15:24 Metoprolol Tartrate 1 Mg/Ml Inj IVP 01/23/24 15:17 5 mg ONCE ONE Administration Metoprolol Tartrate 5 mg 01/23/24 15:38 01/23/24 16:18 Metoprolol Tartrate 1 Mg/Ml Inj IVP 01/23/24 15:39 Not Given ONCE ONE Medical Decision Making MDM Narrative Medical decision making narrative: 83-year-old female with atrial fibrillation with rapid ventricular rate, she is on metoprolol 25 b.i.d., I think we can increase 1 of her doses to 50 and she can go 50 and 25 daily. Will give her some IV Lopressor now. Will try and get her heart rate down a little bit more. She ranges between 100-165. Be nice to see her trend in the 100-110 range. We will check with [facility] regarding her scheduled cardioversion. She will need to continue Eliquis. Will check her electrolytes and CBC. She has been on prednisone for polymyalgia rheumatica as well. Disposition pending response to Lopressor and information from [facility]. Addendum: For p.m.: The patient's blood pressures been about 105 systolic. Will not give additional Lopressor, she does lower her pressure down as mention but she also has lowered her heart rate into the 120 range to 130 range. I think that is acceptable as she is having her cardioversion tomorrow at [facility]. She will get the information regarding the where and when from staff. Her white count and labs look reassuring her white count is elevated however given her prednisone use for PMR. Lab Data Labs: Lab Results 01/23/24 Range/Units 15:00 WBC 17.82 H (4.50-11.00) K/uL RBC 3.95 L (4.00-5.20) m/uL Hgb 13.2 (12.0-16.0) gm/dL Hct 41.7 (33.0-51.0) % MCV 106 H (80-100) fL MCH 33 (26-34) pg MCHC 32 (32-36) gm/dL RDW Coeff of Lindsey 15.3 (11.5-15.5) % Plt Count 137 L (140-440) K/uL Neut % (Auto) 90.3 H (42.0-72.0) % Lymph % (Auto) 5.1 L (20-44) % [place] % (Auto) 4.1 (0.0-11.0) % Eos % (Auto) 0.0 (0.0-7.0) % Baso % (Auto) 0.0 (0.0-3.0) % Neut # (Auto) 16.10 H (1.7-7.0) K/uL Lymph # (Auto) 0.90 (0.90-2.90) K/uL [place] # (Auto) 0.70 (0.00-0.90) K/UL Eos # (Auto) 0.00 (0.00-0.50) K/uL Baso # (Auto) 0.00 (0.00-0.30) K/uL Abs Immat Gran (auto) 0.10 (0.00-0.30) K/uL Imm/Tot Granulo (auto) 0.5 % Diff Slide Review Acceptable Review (Acceptable) Sodium 141 (135-149) mmol/L Potassium 4.6 (3.6-5.1) mmol/L Chloride 106 (96-114) mmol/L Carbon Dioxide 24 (20-32) mmol/L Anion Gap 11 (7-15) mEq/L BUN 42 H (7-30) mg/dL Creatinine 1.6 H (0.5-1.5) mg/dL Estimated Creat Clear 22.04 Estimated GFR 32 ml/min Glucose 180 H (60-115) mg/dL Calcium 9.6 (8.4-10.6) mg/dL Discharge Plan Discharge Clinical Impression: Atrial fibrillation with rapid ventricular response Patient Disposition: Home w/ Parent or Adult Condition: Improved Additional Instructions: Increase metoprolol to 50 mg in the morning and then 25 at night, would also follow-up as scheduled by [facility]. Return if problems or concerns sooner. Need to continue your Eliquis. Appointment for Cardioversion is scheduled tomorrow, January 23, with arrival time of 10:30 AM at [facility]. 2nd floor of the Heart Unit, [address] [facility] [address] Activity Level: Light activity Discharge Diet: Regular Prescriptions: No Action furosemide 20 mg tablet 20 mg PO .Daily as needed PRN (Reason: edema) Qty: 30 3RF mecobalamin (vitamin B12) 1,000 mcg tablet,chewable 1,000 mcg PO QDAY prednisone 20 mg tablet See Rx Instructions PO QDAY Rx Instructions: 25mg orally every day x2 weeks; then 20mg orally every day x2 weeks; then 17mg orally every day x2 weeks; then 15mg daily. metoprolol tartrate 50 mg tablet 25 mg PO BID Eliquis 2.5 mg tablet 2.5 mg PO BID allopurinol 100 mg tablet 200 mg PO QDAY triamcinolone acetonide 0.1 % cream 1 applic topical BID Qty: 30 0RF amlodipine 5 mg tablet 5 mg PO DAILY Qty: 90 1RF atorvastatin 40 mg tablet 40 mg PO .Bedtime Qty: 90 1RF chlorthalidone 25 mg tablet 25 mg PO DAILY Qty: 90 1RF levothyroxine 75 mcg tablet 75 mcg PO DAILY Qty: 90 1RF lisinopril 40 mg tablet 40 mg PO DAILY Qty: 90 1RF omeprazole 20 mg capsule,delayed release(DR/EC) 20 mg PO DAILY Qty: 90 1RF Follow Up/Referrals: Tamera Newton MD [Primary Care Provider] - Stand Alone Forms: [employer] Info Instructions
[2024-01-23 15:34] LABS: Slide Review Reflex Yes
[2024-01-23 15:45] LABS: Chloride* 106 mmol/L (96-114); Potassium* 4.6 mmol/L (3.6-5.1); Sodium* 141 mmol/L (135-149)
[2024-01-23 15:48] LABS: Anion Gap 11 mEq/L (7-15); Blood Urea Nitrogen* 42 mg/dL (7-30); Carbon Dioxide* 24 mmol/L (20-32); Creatinine* 1.6 mg/dL (0.5-1.5); Est. Creatinine Clearance* 22.04; Estimated Glomerular Filt Rate 32 ml/min; Glucose* 180 mg/dL (60-115)
[2024-01-23 15:49] LABS: Calcium* 9.6 mg/dL (8.4-10.6)
[2024-01-23 16:20] LABS: Slide Review Acceptable Review (Acceptable)
== END 2024-01-23 16:37 | disposition home or self-care (01) ==
PROVIDERS: Emergency Provider Family Medicine; PCP Family Medicine
DX: I48.91 Unspecified atrial fibrillation (principal)
CPT/HCPCS: 36415; 80048; 85025; 96374; 96376; 99284; 99285

== ENCOUNTER 2024-01-31 08:29 | Outpatient (CLI) | payer MEDICARE, OTHER, SELFPAY ==
--- OUTSIDE RECORDS SUMMARY | 2024-01-31 08:42 | XMS_ITS | Continuity of Care Document ---
Author Organization [facility] Address [address] [place] [address] Phone Care Team Providers Care Blind Teacher Name Role Phone Unavailable Unavailable Unavailable Allergies, [...] Copied on Encounter [facility], [address], [place], [id number] , [place] tel:[phone] [facility] No Information May-2 No Information Office/Outpat ient Visit,Est, Mod [facility], [address], [place], [id number] , [place] tel:[phone] [facility] Other idiopathic scoliosis, lumbar region Rafa Miller. [facility], [address], [facility] [address], [place], [place], [id number], [place]. tel:[phone] Referring Provider: Terry Grant, [facility] [address] [place], [address]. tel:[phone] Office/Outpat ient Visit,New, Mod [facility], [address], [place], [place], [id number] , [place] tel:[phone] [facility] Spinal stenosis, lumbar region with neurogenic claudication Spondylolysi s, lumbar regionOther idiopathic scoliosis, lumbar region 1 No Information Referring Provider: Terry Grant, [facility] [address] [place], [address]. tel:[phone] Family History Family Member Type Diagnosis Age At Onset No Information Payers Payer name Insurance type Covered libertarian ID Authorzaydaa brigette(s) Medicare [id number] For Life/Retired Hunter [id number] Social History Type Description Quantity Date Captured [...]
--- OUTSIDE RECORDS SUMMARY | 2024-01-31 08:43 | XMS_ITS | Encounter Summary ---
Author Organization [employer] Address [address] [place] [address] Care Team Providers Care Billing Department Supervisor Name Role Phone Clinician, Not Found MD Primary Care Provider Un available Reason for Visit * Reason Comments Follow-up Encounter Details Date Type Department Care Team (Late st Contact Info) Description 12/18/2023 2:30 PM CDT Office Visit [facility] [address] [place] [address] Denise Davila MD [facility]0 [place], [place] [id number] Chronic tophaceous gout (Primary Dx); Osteoarthritis of [...] with her primary care provider in the [facility] system. She was told to have elevated [...] Info) Description 02/26/2024 11:00 AM CDT Appointment [facility] [address] [place] [address] Denise Davila MD [address] [place] [address] 04/25/2024 12:00 PM CDT Appointment [facility] [address] [place] [address] Denise Davila MD [address] [place], [place] [phone] documented as of this encounter Results * CCP Antibody (12/18/2023 3:21 PM CDT) [facility] Anti-CCP Antibody 0.5 0.0 - 6.9 U/mL 12/19/2023 1:00 PM CDT [facility] Anti-CCP Antibody Interpretation Negative Negative 12/19/2023 1:00 PM CDT [facility] Blood Venipuncture / Unknown 12/18/2023 3:21 PM CDT 12/18/2023 3:21 PM CDT Narrative [facility] - 12/19/2023 1:00 PM CDT This result was obtained with the [employer] 250. Quantitative results cannot be directly compared to other manufacturers' methods. Denise Davila MD LAB_1 [facility] [address] * Rheumatoid Factor, Quant (12/18/2023 3:21 PM CDT) [facility] Rheumatoid Factor, Quantitative <15 <=30 IU/mL 12/18/2023 9:03 PM CDT [facility] Blood Venipuncture / Unknown 12/18/2023 3:21 PM CDT 12/18/2023 3:21 PM CDT Denise Davila MD LAB_1 [facility] [address] [place], [place] [address] * Sedimentation Rate (ESR) (12/18/2023 3:21 PM CDT) Pathologist [facility] Sedimentation Rate 12 0 - 20 mm/hr 12/18/2023 3:55 PM CDT [facility] Blood Venipuncture / Unknown 12/18/2023 3:21 PM CDT 12/18/2023 3:21 PM CDT Denise Davila MD LAB_1 Performing Organization Address [facility]/ZIP Co de Phone Number [address] [phone] * (ABNORMAL) C-Reactive Protein (12/18/2023 3:21 PM CDT) Pathologist [facility] C-Reactive Protein 1.4(H) 0.0 - 0.5 mg/dL 12/18/2023 5:10 PM CDT [facility] Blood Venipuncture / Unknown 12/18/2023 3:21 PM CDT 12/18/2023 3:21 PM CDT Denise Davila MD LAB_1 Performing Organization Address [facility]/ZIP Co de Phone Number [address] [phone] * (ABNORMAL) Protein ELP (Serum) (12/18/2023 3:21 PM CDT) Pathologist [facility] Total Protein 6.9 6.4 - 8.3 g/dL 12/20/2023 10:36 AM CDT [facility] Albumin 4.3 3.4 - 4.8 g/dL 12/20/2023 10:36 AM CDT [facility] Alpha 1 0.4 0.2 - 0.5 g/dL 12/20/2023 10:36 AM CDT [facility] Alpha 2 0.9 0.5 - 1.1 g/dL 12/20/2023 10:36 AM CDT [facility] Beta 0.7 0.6 - 1.1 g/dL 12/20/2023 10:36 AM CDT [facility] Gamma 0.6(L) 0.7 - 1.6 g/dL 12/20/2023 10:36 AM CDT [facility] Monoclonal Vahid 0.0 <=0.0 g/dL 12/20/2023 10:36 AM CDT [facility] Interpretation Borderline hypogammaglobuli nemia. Consider urine immunofixation to rule out Bence Orozco proteinuria. 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
--- OUTSIDE RECORDS SUMMARY | 2024-01-31 08:43 | XMS_ITS | Clinical Summary ---
Author Organization [facility] Address [place], [place] [address] Care Team Providers Care Returned Telephone Equipment Appraiser Name Role Phone Tamera Jimenez MD Primary Care Provider + Allergies Active Allergy Reactions Criticality Noted Date Comments Propoxyphene Other - Describe In Comment Field Medium 10/21/1999 Lethargy Sulindac Hives High 06/03/2003 Medications Medication Sig Dispensed Refills Start Date End Date Status lisinopril (PRINIVIL; ZESTRIL) 40 mg tablet Take 1 tablet by mouth once daily. 0 01/20/20 15 Active omeprazole (PRILOSEC) 20 mg Delayed-Release capsule Take 1 capsule by mouth once daily before a meal. 0 01/20/20 15 Active amLODIPine (NORVASC) 5 mg tablet Take 5 mg by mouth once daily. 08/09/20 17 Active atorvastatin (LIPITOR) 40 mg tablet Take 40 mg by mouth at bedtime. 0 11/14/19 19 Active levothyroxine (SYNTHROID) 75 mcg tablet Take 1 Tablet by mouth before breakfast. 10/04/19 22 Active predniSONE (DELTASONE) 5 mg tablet Take 17.5 mg by mouth once daily. 10/03/19 22 Active allopurinoL (ZYLOPRIM) 100 mg tablet Take 200 mg by mouth once daily. Active acetaminophen (TYLENOL EXTRA STRGTH) 500 mg tablet Take 1,000 mg by mouth at bedtime. Max acetaminophen dose: 4000mg in 24 hrs. 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 Active calcium carbonate-vitami n D 250 mg-3.125 mcg (125 unit) tab Take 1 Tablet by mouth two times daily. Active warfarin (COUMADIN) 5 mg tabletIndication s:Left atrial thrombus Take 1 Tablet (5 mg) by mouth once daily. Until directed by anticoagulation clinic. 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 60 Tablet 1 01/28/20 24 Active enoxaparin (LOVENOX) 80 mg/0.8 mL injectionIndicat ions:Left atrial thrombus Inject 70 mg subcutaneous, daily evening until your INR is greater than 2.0. 5 mL 01/28/20 24 Active furosemide (LASIX) 20 mg tabletIndication s:Acute systolic congestive heart failure (HC) Take 1 Tablet (20 mg) by mouth once daily in the morning. Take an additional 1 tablet for weight gain of 3 lbs in 24 hours, or 5 lbs in 1 week 30 Tablet 1 01/28/20 24 Active spironolactone (ALDACTONE) 25 mg tabletIndication s:Acute systolic congestive heart failure (HC) Take 0.5 Tablets (12.5 mg) by mouth once daily in the morning. 30 Tablet 1 01/28/20 24 Active atenolol (TENORMIN) 25 mg tablet Take 1 tablet by mouth once daily. 0 01/20/20 15 024 Discontinued(*P atient states no longer taking) cholecalciferol (VITAMIN D3) 2,000 unit capsule Take 2,000 units by mouth at bedtime. 0 01/20/20 15 024 Discontinued(Ph armacist change per medication history (E-cancel not sent)) chlorthalidone (HYGROTON) 25 mg tablet Take 1 tablet by mouth every morning. 0 11/14/19 19 024 Discontinued(*I P Discontinued) furosemide (LASIX) 20 mg tablet Take 1 Tablet by mouth once daily if needed (edema). 07/28/20 024 Discontinued(*P atient states no longer taking) methotrexate (RHEUMATREX) 2.5 mg tablet Take 1 Tablet by mouth every Sunday. 06/28/20 024 Discontinued(*P atient states no longer taking) folic acid 1 mg tablet Take 1 Tablet by mouth once daily. 06/28/20 024 Discontinued(*P atient states no longer taking) aspirin (ECOTRIN) 81 mg enteric coated tabletIndication s:Status post revision of total replacement of left knee Take 1 Tablet (81 mg) by mouth 2 times daily with meals. 60 Tablet 10/20/19 Discontinued(*P atient states no longer taking) oxyCODONE (ROXICODONE) 5 mg immediate release tabletIndication s:Status post revision of total replacement of left knee Take 1-2 Tablets (5-10 mg) by mouth every 4 hours if needed for Pain. 30 Tablet 10/20/19 024 Discontinued(*P atient states no longer taking) honey (Manuka Honey) 100 % gelIndications:U lcer of right foot with fat layer exposed (HC) Apply topically to affected area(s). 15 mL 2 11/14/19 Discontinued(*P atient states no longer taking) apixaban (Eliquis) 2.5 mg tablet Take 2.5 mg by mouth two times daily. Discontinued(*I P Discontinued) metoprolol succinate (TOPROL XL) 50 mg sustained-releas e tablet Take 50 mg (full tab) by mouth in the morning and 25 mg (half tab) by mouth in the evening Discontinued(*I P Discontinued) furosemide (LASIX) 20 mg tabletIndication s:Acute systolic congestive heart failure (HC) Take 1 Tablet (20 mg) by mouth once daily in the morning. Take an additional 1 tablet for weight gain of 3 lbs in 24 hours, or 5 lbs in 1 week 30 Tablet 1 01/28/20 24 024 Discontinued spironolactone (ALDACTONE) 25 mg tabletIndication s:Acute systolic congestive heart failure (HC) Take 0.5 Tablets (12.5 mg) by mouth once daily in the morning. 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 60 Tablet 2 01/28/20 24 024 Discontinued warfarin (COUMADIN) 5 mg tabletIndication s:Left atrial thrombus Take 1 Tablet (5 mg) by mouth once daily. Until directed by anticoagulation clinic. 14 Tablet 01/28/20 24 024 Discontinued enoxaparin (LOVENOX) 80 mg/0.8 mL injectionIndicat ions:Left atrial thrombus Inject 70 mg subcutaneous, daily evening until your INR is greater than 2.0. 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 Hypertension Hypothyroidism Hypercholesteremia HLD (hyperlipidemia) Neuropathy Rheumatoid arthritis RLS (restless legs syndrome) Encounters Date Type Department Care Team Description 01/24/2024 12:43 PM CDT Anesthesia Event [facility] [address] [place] [address] Dimitri Stahl MD Westen, Megan Joy, MD 01/24/2024 9:47 AM CDT - 01/28/2024 2:25 PM CDT Hospital Encounter [facility] [address] [place] [address] Jeanne Torres MD [facility] [place] [facility], MD Jhon Heredia, HAN Sharp, MD Tanisha Rowley Hani, MBBS Taylor, Phillip Norman, MD Mickley, Anayeli Mayberry CRNA Acute systolic congestive heart failure (HC) (Primary Dx); Mitral valve stenosis, unspecified etiology; 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); Left atrial thrombus Discharge Disposition: Home Self Care 01/24/2024 Travel 01/23/2024 Telephone [facility] [address] [place] [address] Jeanne Torres MD Instruction 01/23/2024 Telephone [facility] [address] [place] [address] Jeanne Torres MD Appointment (Cardioversion) 01/17/2024 11:00 AM CDT Office Visit [facility] [address] [place] [address] Jeanne Torres MD Arrived 12/28/2023 9:00 AM CDT Ancillary Procedure [facility] [address] [place] [address] 12/12/2023 11:30 AM CDT Office Visit [facility] [address] [place] [address] Toney Winchester DPM Ulcer (Follow up-right foot) 12/12/2023 Travel 11/28/2023 1:00 PM CDT Office Visit [facility] [address] [place] [address] Toney Winchester DPM Ulcer (Follow up-right foot) 11/28/2023 Travel 11/14/2023 2:45 PM CDT Office Visit [facility] [address] [place] [address] Toney Winchester DPM Follow Up (Right ulcer [...] of Communication with Friends and Fami ly 0 01/28/2024 Financial Resource Strain Answer Date R ecorded Difficulty of Paying Living Expenses 3 01/28/2024 Difficulty of Paying Living Expenses Not on file 01/28/2024 Food Insecurity Answer Date Recorded Worried About Running Out of Food in the Last Ye ar 1 01/28/2024 Transportation Needs Answer Date Record ed Lack of Transportation (Medical) 1 01/28/2024 Housing Stability Answer Date Recorded Unable to Pay for Housing in the Last Year 1 01/28/2024 Sex and Gender Information Value Date Recorded Sex Assigned at Not on file Gender Identity Not on file Sexual Orientation Not on file Obstetrics History Last Filed Vital Signs Vital Sign Reading Time Taken Comments Blood Pressure 139/102 01/28/2024 8:41 AM CDT Pulse 83 01/28/2024 8:41 AM CDT Temperature 36.7 ??C (98.1 ??F) 01/28/2024 8:41 AM CD T Respiratory Rate 16 01/28/2024 8:41 AM CDT Oxygen Saturation 94% 01/28/2024 8:41 AM CDT Inhaled Oxygen Concentration - - Weight 64.9 kg (143 lb) 01/28/2024 6:00 AM CDT Height 162.6 cm (5' 4) 01/24/2024 10:24 AM CDT Body Mass Index 24.55 01/24/2024 10:24 AM CDT Plan of Treatment Upcoming Encounters Date Type Department Care Team (Late st Contact Info) Description 02/18/2024 1:45 PM CDT Appointment [facility] [address] [place] [address] 02/18/2024 2:00 PM CDT Appointment [facility] [address] [place] [address] Health Maintenance Due Date Last Done Comments [...] 09/24/2019, 03/26/2009 Medical Devices Implanted Type Area Heel Seat Sander Device Identifier Shelf Expiration Date Model / Serial / Lot Simplex P Bone Cement - Half Dose Implanted:Qty: 2 on 10/18/2021 by Kevin Hogue MD at [facility] Left: Knee [employer] 07/12/2023 / [id number] / [id number] Triathlon Femoral Posterior Augment Implanted:Qty: 1 on 10/18/2021 by Kevin Hogue MD at [facility] Left: Knee [employer] 06/01/2025 / [id number]-A-400 / [id number] Simplex P Bone Cement Full Dose Implanted:Qty: 2 on 10/18/2021 by Kevin Hogue MD at [facility] Left: Knee [employer] 09/12/2023 / [id number] / [id number] Triathlon Fluted Stem - Tibia Implanted:Qty: 1 on 10/18/2021 by Kevin Hogue MD at [facility] Left: Knee [employer] 10/09/2025 / [id number] / [id number] Triathlon Tritanium Tibial Symmetric Cone Augment Implanted:Qty: 1 on 10/18/2021 by Kevin Hogue MD at [facility] Left: Knee [employer] 05/04/2026 / [id number] / [id number] Triathlon Total Knee [place] Tibial Baseplate Implanted:Qty: 1 on 10/18/2021 by Kevin Hogue MD at [facility] Left: Knee [employer] 12/19/2025 / [id number]-B-[id number] / [id number] Triathlon Fluted Stem - Femur Implanted:Qty: 1 on 10/18/2021 by Kevin Hogue MD at [facility] Left: Knee [employer] 06/15/2025 / [id number] / [id number] Triathlon Total Stabilizer Femoral Component Implanted:Qty: 1 on 10/18/2021 by Kevin Hogue MD at [facility] Left: Knee [employer] 01/16/2026 / [id number] / [id number] Triathlon X3 Total Stablizer+ Tibial Insert Implanted:Qty: 1 on 10/18/2021 by Kevin Hogue MD at [facility] Left: Knee [employer] 08/31/2026 / [id number] -[id number] / [id number] Triathlon Femoral Posterior Augment Implanted:Qty: 1 on 10/18/2021 by Kevin Hogue MD at [facility] Left: Knee [employer] 09/05/2025 / [id number]-A-[id number] / [id number] Procedures Procedure Name Priority Date/Time Associated Diagnosis Comments SCAN-CARDIAC STRIP 01/28/2024 9: 22 AM CDT MAGNESIUM Early AM 01/28/2024 5:39 AM CDT POTASSIUM Early AM 01/28/2024 5:39 AM CDT CREATININE Early AM 01/28/2024 5:39 AM CDT PLATELET COUNT Early AM 01/28/2024 5:39 AM CDT PROTIME-INR Early AM 01/28/2024 5:39 AM CDT SCAN-CARDIAC STRIP 01/27/2024 9: 10 PM CDT SCAN-CARDIAC STRIP 01/27/2024 10 :50 AM CDT MAGNESIUM Early AM 01/27/2024 9:55 AM CDT POTASSIUM Early AM 01/27/2024 9:55 AM CDT CREATININE Early AM 01/27/2024 9:55 AM CDT PROTIME-INR Early AM 01/27/2024 9:55 AM CDT SCAN-CARDIAC STRIP 01/26/2024 11 :01 PM CDT SCAN-CARDIAC STRIP 01/26/2024 9: 41 AM CDT PROTIME-INR Early AM 01/26/2024 6:52 AM CDT SCAN-CARDIAC STRIP 01/25/2024 8: 05 PM CDT ECHO TTE LIMITED W CONTRAST W COLOR [...] (HC) from Last 3 Months Results * SCAN-CARDIAC STRIP (01/28/2024 9:22 AM CDT) Scanner OTHER * (ABNORMAL) PLATELET COUNT (01/28/2024 5:39 AM CDT) Pathologist [facility] [place] PLATELET COUNT 151 140 - 440 thou/cu mm 01/28/2024 6:47 AM CDT [facility] MPV 13.3(H) 6.5 - 11.0 fL 01/28/2024 6:47 AM CDT [facility] Blood BLOOD SPECIMEN / Unknown Venipuncture / Unknown 01/28/2024 5:39 AM CDT 01/28/2024 6:38 AM CDT Alena mAaya NP HEMATOLOGY Performing Organization Address [facility] Co de Phone Number [facility] [address] [place] [address], [place] * POTASSIUM (01/28/2024 5:39 AM CDT) Only the most recent of2 resultswithin the time period is included. Pathologist [facility] POTASSIUM 3.7 3.5 - 5.1 mmol/L 01/28/2024 7:59 AM CDT [facility] Blood BLOOD SPECIMEN / Unknown Venipuncture / Unknown 01/28/2024 5:39 AM CDT 01/28/2024 6:38 AM CDT Anais SHORT CHEMISTRY Performing Organization Address City/[facility] Co de Phone Number [facility] [address] [place] [address], [place] * (ABNORMAL) CREATININE (01/28/2024 5:39 AM CDT) Only the most recent of3 resultswithin the time period is included. Pathologist [facility] eGFR 34(L) >90 mL/min/1.7 3m2 01/28/2024 7:59 AM CDT [facility] Comment:As of 2021, eG FR is calculated by the CKD-EPI creatinine equation without race adjustment. ??eGFR can be influenced by muscle mass, exercise, and diet. ??The reported eGFR is an estimation only and is only applicable if the renal function is stable. CREATININE 1.51(H) 0.50 - 0.90 mg/dL 01/28/2024 7:59 AM CDT [facility] Blood BLOOD SPECIMEN / Unknown Venipuncture / Unknown 01/28/2024 5:39 AM CDT 01/28/2024 6:38 AM CDT Anais SHORT CHEMISTRY Performing Organization Address [facility]/ZIP Co de Phone Number [facility] [address] [place] [address], * (ABNORMAL) PROTIME-INR (01/28/2024 5:39 AM CDT) Only the most recent of5 resultswithin the time period is included. INR 1.6(H) <1.3 01/28/2024 7:10 AM CDT [facility] PROTIME 17.3(H) 10.3 - 12.3 sec 01/28/2024 7:10 AM CDT [facility] Blood BLOOD SPECIMEN / Unknown Venipuncture / Unknown 01/28/2024 5:39 AM CDT 01/28/2024 6:38 AM CDT Narrative [facility] - 01/28/2024 7:10 AM CDT ?Therapeutic Range 2.0-3.0 for most [...] Yrn Gleason MD HEMATOLOGY Performing Organization Address City/[facility]/ZIP Co de Phone Number [facility] [address] [place] [phone], * MAGNESIUM (01/28/2024 5:39 AM CDT) Only the most recent of3 resultswithin the time period is included. MAGNESIUM 1.8 1.6 - 2.4 mg/dL 01/28/2024 10:02 AM CDT [facility] Blood BLOOD SPECIMEN / Unknown Venipuncture / Unknown 01/28/2024 5:39 AM CDT 01/28/2024 6:38 AM CDT Anais SHORT CHEMISTRY [facility] [address] [place] [phone], * SCAN-CARDIAC STRIP (01/27/2024 9:10 PM CDT) Scanner OTHER * SCAN-CARDIAC STRIP (01/27/2024 10:50 AM CDT) Scanner OTHER * SCAN-CARDIAC STRIP (01/26/2024 11:01 PM CDT) Scanner OTHER * SCAN-CARDIAC STRIP (01/26/2024 9:41 AM CDT) Scanner OTHER * SCAN-CARDIAC STRIP (01/25/2024 8:05 PM CDT) Scanner OTHER * ECHO TTE LIMITED W CONTRAST W COLOR W DOPPLER (01/25/2024 12:04 PM CDT) AORTIC VALVE MEAN PG 7 mmHg EJECTION FRACTION 39 % PEAK TR VELOCITY 3.8 m/s LVEDD 4.4 cm EJECTION FRACTION 50 - 55% Anatomical Region Laterality Modality Ultrasound 01/25/2024 11:0 0 AM CDT Narrative 01/25/2024 1:27 PM CDT ECHOCARDIOGRAM ABIMBOLA H KUYPER ? Accession#: ?? [id number] : ?1940 83 years Study Date: ?? 01/25/2024 11:00:05 AM Gender: F ?BP: ? 110/94 mmHg Height: 162.00 cm ?BSA: ?1.73 m? ? ? Weight: 68.00 kg ? Tech: ? MH ? Referring MD: JEANNE TORRES Site: ? [facility] Reading Location: [facility] Patient Location: Inpatient. Procedure: Limited Echo w/ [...] . This study was interpreted by an [facility] accredited facility. ??Final ?? Procedure Note Chandrakant Rain MD - 01/25/2024 ECHOCARDIOGRAM ABIMBOLA SAMUELS : 1940 83 years Study Date: 01/25/2024 11:00:05 AM Gender: F BP: 110/94 mmHg Height: 162.00 cm BSA: 1.73 m? ? ? Weight: 68.00 kg Tech: Referring MD: JEANNE TORRES Site: [facility] Reading Location: [facility] Patient Location: Inpatient. Procedure: Limited Echo w/ [...] . This study was interpreted by an [facility] accredited facility. Final Jeanne Torres MD ECHO ORD * SCAN-CARDIAC STRIP (01/25/2024 8:42 AM CDT) Scanner OTHER * LIPID PANEL W REFLEX MEASURED LDL (01/25/2024 5:56 AM CDT) CHOLESTEROL,TOTAL 174 100 - 199 mg/dL 01/25/2024 11:36 AM CDT [facility] Comment: Cholesterol, Total Reference Ranges Desirable <200 mg/dL Borderline 200-239 mg/dL High >=240 mg/dL TRIGLYCERIDES 114 <150 mg/dL 01/25/2024 11:36 AM CDT [facility] HDL CHOLESTEROL 58 >40 mg/dL 11:36 AM CDT [facility] NON-HDL CHOLESTEROL 116 <145 mg/dl 01/25/2024 11:36 AM CDT [facility] CHOL/HDL RATIO 3.00 <4.50 01/25/2024 11:36 AM CDT [facility] LDL CHOLESTEROL 93 <=130 mg/dL 01/25/2024 11:36 AM CDT [facility] VLDL CHOLESTEROL 23 <=30 mg/dL 01/25/2024 11:36 AM CDT [facility] PROVIDER ORDERED STATUS RANDOM 01/25/2024 11:36 AM CDT [facility] Blood BLOOD SPECIMEN / Unknown Venipuncture / Unknown 01/25/2024 5:56 AM CDT 01/25/2024 6:13 AM CDT Akosua Blanco NP [facility] [address] [place] [address], * (ABNORMAL) BASIC METABOLIC PANEL (01/25/2024 5:56 AM CDT) Only the most recent of2 resultswithin the time period is included. SODIUM 144 136 - 145 mmol/L 01/25/2024 6:38 AM T [facility] POTASSIUM 4.2 3.5 - 5.1 mmol/L 01/25/2024 6:38 AM [facility] CHLORIDE 105 98 - 107 mmol/L 01/25/2024 6:38 AM [facility] CO2,TOTAL 26 22 - 29 mmol/L 01/25/2024 6:38 AM [facility] ANION GAP 13 5 - 18 01/25/2024 6:38 AM T [facility] GLUCOSE 84 70 - 99 mg/dL 01/25/2024 6:38 AM T [facility] CALCIUM 9.7 8.8 - 10.2 mg/dL 01/25/2024 6:38 AM [facility] BUN 37(H) 8 - 23 mg/dL 01/25/2024 6:38 AM [facility] CREATININE 1.40(H) 0.50 - 0.90 mg/dL 01/25/2024 6:38 AM [facility] BUN/CREAT RATIO 26(H) 10 - 20 6:38 AM [facility] eGFR 37(L) >90 mL/min/1.7 3m2 01/25/2024 6:38 AM [facility] Comment:As of 2021, eG FR is calculated by the CKD-EPI creatinine equation without race adjustment. ??eGFR can be influenced by muscle mass, exercise, and diet. ??The reported eGFR is an estimation only and is only applicable if the renal function is stable. Blood BLOOD SPECIMEN / Unknown Venipuncture / Unknown 01/25/2024 5:56 AM CDT 01/25/2024 6:13 AM CDT Anais SHORT CHEMISTRY [facility] [address] * SCAN-CARDIAC STRIP (01/24/2024 8:08 PM CDT) Scanner OTHER * SCAN-CARDIAC STRIP (01/24/2024 6:16 PM CDT) Scanner OTHER * ECHO RAMEZ WO CONTRAST W COLOR W LTD DOPPLER (01/24/2024 1:01 PM CDT) EJECTION FRACTION 60 - 65% Anatomical Region Laterality Modality Ultrasound 01/24/2024 12:2 7 PM CDT Narrative 01/24/2024 1:26 PM CDT TRANSESOPHAGEAL ECHOCARDIOGRAM ABIMBOLA SAMUELS ? Accession#: ?? [id number] : ?1940 83 years Study Date: ?? 01/24/2024 12:27:40 PM Gender: F ?BP: ? 132/83 mmHg Height: 162.00 cm ?BSA: ?1.76 m? ? ? Weight: 71.00 kg ? Tech: ? KBA ? Referring MD: ALENA AMAYA Site: ? [facility] Reading Location: [facility] Patient Location: [...] . This study was interpreted by an [facility] accredited facility. ??Final ?? Procedure Note Juanito Martinez MD - 01/24/2024 TRANSESOPHAGEAL ECHOCARDIOGRAM ABIMBOLA SAMUELS : 1940 83 years Study Date: 01/24/2024 12:27:40 PM Gender: F BP: 132/83 mmHg Height: 162.00 cm BSA: 1.76 m? ? ? Weight: 71.00 kg Tech: KBA Referring MD: ALENA AMAYA Site: [facility] Reading Location: [facility] Patient Location: [...] . This study was interpreted by an [facility] accredited facility. Final Alena Amaya DRAW PRESS OPERATOR ECHO ORD * TSH (01/24/2024 11:05 AM CDT) Pathologist [facility] [place] TSH 1.42 0.27 - 4.20 uIU/mL 01/24/2024 6:11 PM CDT [facility] Blood BLOOD SPECIMEN / Unknown Butterfly / Unknown 01/24/2024 11:05 AM CDT 01/24/2024 11:13 AM CDT Narrative [facility] - 01/24/2024 6:11 PM CDT In Adults, TSH values between 5.00 and 10.00 uIU/ml do not necessarily indicate the presence of Hypothyroidism. Correlation with clinical findings such as presence of goiter and/or Thyroperoxidase (TPO) Antibody may be helpful. For more information please refer to SHABANA 2004; 291: 228-238. Anais SHORT CHEMISTRY Performing Organization Address City/[facility]/ZIP Co de Phone Number [facility] [address] [place] [address], [place] * POTASSIUM,ISTAT (01/24/2024 10:34 AM CDT) Pathologist [facility] POTASSIUM, POCT 4.3 3.5 - 5.0 mmol/L 01/24/2024 10:40 AM CDT [facility] Blood BLOOD SPECIMEN / Unknown 01/24/2024 10:34 AM CDT 01/24/2024 10:40 AM CDT Jeanne Torres MD CHEMISTRY [facility] [address] [place] [id number], [place] * EKG - 12 Lead (01/24/2024 10:11 AM CDT) Pathologist [facility] Interpretation Atrial fibrillation with rapid ventricular response [...] NOW QTc 500 ms BEYOND NOW P Clyde degrees BEYOND NOW R Clyde 42 degrees BEYOND NOW T Clyde -24 degrees BEYOND NOW 01/24/2024 10:1 1 AM CDT 01/24/2024 2:17 PM CDT Narrative BEYOND NOW - 01/24/2024 2:17 PM CDT Test Indication: PRECARDIO Alena Michelle DRAW PRESS OPERATOR EKG ORD BEYOND NOW [place], [place] * ECHO TTE COMPLETE WO CONTRAST (12/28/2023 9:58 AM CDT) AORTIC VALVE MEAN PG 4 mmHg PEAK TR VELOCITY 3.2 m/s LVEDD 3.5 cm EJECTION FRACTION 55 - 60% Anatomical Region Laterality Modality Ultrasound 12/28/2023 9:13 AM CDT Narrative 12/28/2023 10:52 AM CDT ECHOCARDIOGRAM ABIMBOLA SAMUELS ? Accession#: ?? [id number] : ?1940 83 years Study Date: ?? 12/28/2023 9:13:23 AM Gender: F ?BP: ? 147/88 mmHg Height: 163.00 cm ?BSA: ?1.71 m? ? ? Weight: 66.00 kg ? Tech: ? MBF ? Referring MD: TAMERA JIMENEZ Site: ? [facility] Reading Location: Mobile [facility] Patient Location: Outpatient. Procedure: [...] AM. This study was interpreted by an [facility] accredited facility. CC: HIM ([facility]) [facility]. ??Final (Updated) ?? Procedure Note Chandrakant Tomas MD - 12/28/2023 ECHOCARDIOGRAM ABIMBOLA SAMUELS : 1940 83 years Study Date: 12/28/2023 9:13:23 AM Gender: F BP: 147/88 mmHg Height: 163.00 cm BSA: 1.71 m? ? ? Weight: 66.00 kg Tech: EMETERIO Referring MD: TAMERA JIMENEZ Site: [facility] Reading Location: [facility] Patient Location: Outpatient. Procedure: 2D, Color Doppler [...] interpreted by an IAC accredited facility. CC: [facility] (med records) [facility]. Final (Updated) Tamera Jimenez MD ECHO ORD from Last 3 Months Advance Directives Documents on File Type Date Recorded Patient [employer] Expl anation Healthcare Directive 10/20/2021 8:51 AM * Full Code (Latest Code Status on File) Date Activated Date Inactivated Comments 01/25/2024 3:59 PM 01/28/2024 4:26 PM Question Answer Comments Code Status Discussion: Reviewed Preferences * Full Code Date Activated Date Inactivated Comments 10/18/2021 2:53 PM 10/19/2021 5:32 PM Question Answer Comments Code Status Discussion: Reviewed Preferences * Full Code Date Activated Date Inactivated Comments 10/18/2021 7:44 AM 10/18/2021 11:53 AM Question Answer Comments Code Status Discussion: Unable to Assess Preferences, Provider to review later Care Teams Returned Telephone Equipment Appraiser Relationship Specialty Start Date End Date Tamera Jimenez MD [address] [place] [address] PCP - General Family Practice 10/24/23
--- OUTSIDE RECORDS SUMMARY | 2024-01-31 08:43 | XMS_ITS | Clinical Summary ---
Author Organization [facility] Address [address], [place] [address] Care Team Providers Care Laboratory Immunologist Name Role Phone Clinician, Not Found MD Primary Care Provider Un available Source Comments You are receiving this document as you are listed as the primary care provider,follow-up provider, or the patient has been referred to you for consultation.This is in compliance with the Medicare and[facility] EHR Incentive Program,which states Providers who transition their patient to another setting of careor provider of care or refers their patient to another provider of care shouldprovide summary care record for each transition of care or referral. [facility] Allergies Active Allergy Reactions Criticality Noted Date [...] (1 mg) by mouth daily. 4 Active cefdinir (OMNICEF) 300 MG capsule Take 1 Capsule (300 mg) by mouth two times a day. 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 Renal insufficiency 10/01/2020 Hyperuricemia 09/10/2020 S/P total knee arthroplasty, bilateral 8 S/P appendectomy 03/29/2018 Restless legs syndrome (RLS) 03/29/2018 Chronic left shoulder pain 03/29/2018 Psoriatic arthritis 03/29/2018 Sensorineural hearing loss 02/22/2005 Overview: LW Onset: [id number] ; Hearing Loss Sensorineural Undiagnosed cardiac murmurs 02/22/2005 Overview: LW Modifier: functional LW Onset: 60Moz99 ; Heart Murmur Right bundle branch block 02/22/2005 Overview: LW Onset: 08Bjr20 Obesity 05/04/2004 Overview: LW Onset: [id number] Essential hypertension 01/17/2003 Overview: Hypertension Hypothyroidism 01/17/2003 Overview: Hypothyroidism Acquired Osteoarthritis 01/17/2003 Overview: DJD Chronic kidney disease, stage 3b Encounters Date Type Department Care Team Description 01/15/2024 2:30 PM CDT Office Visit [facility] [address] [place] [address] Denise Davila MD PMR (polymyalgia rheumatica) (HRC) (Primary Dx); Chronic tophaceous gout; Osteoarthritis of multiple joints, unspecified osteoarthritis type; 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 [address] Denise Davila MD 12/20/2023 Notes/Orders [place] [address] [place] [address] [place] [address] Denise Davila MD Arthralgia, unspecified joint (Primary Dx); PMR (polymyalgia rheumatica) (HRC) 12/19/2023 Telephone [place] [address] [place] [address]. [place] [address] Denise Davila MD PHONE CALL TO PATIENT 12/18/2023 3:10 PM CDT Lab Visit [facility] [address] [place] [address] Arthralgia, unspecified joint 12/18/2023 2:30 PM CDT Office Visit [facility] [address] [place] [address] Denise aDvila MD Chronic tophaceous gout (Primary Dx); Osteoarthritis of multiple joints, unspecified osteoarthritis type; Arthralgia, unspecified joint 11/13/2023 Refill [facility] [address] [place] [address] Denise Davila MD Refill from Last 3 Months Immunizations Name Administration Dates Next Due Flu Vac Preserv Free (3+yrs) 04/21/2013, 04/28/2009,05/21/2006,2004,05/04/2004 Influenza IIV3 (Trivalent) F luzone Highdose, 65+ Yrs (96840) 06/15/2020,07/01/2019,05/27/2018,2017,05/30/2017,05/15/2016,04/28/2014 Influenza IIV4 (Quadrivalent ) Fluad, 65+ [...] Info) Description 02/26/2024 11:00 AM CDT Appointment [facility] [address] [place] [address] [place] [address] [place] [address] 04/25/2024 12:00 PM CDT Appointment [facility] [address] [place] [address] Denise Davila MD [address] [place] [address] Health Maintenance Due Date Last Done Comments [...] - 1.02 mg/dL 01/15/2024 5:35 PM CDT [facility] GFR, Estimated 28(L) >60 mL/min/1.7 3m2 01/15/2024 5:35 PM CDT [facility] Blood Venipuncture / Unknown 01/11/2024 10:22 AM CDT 01/11/2024 10:22 AM CDT Denise Davila MD LAB_1 [facility] [address] [place] [address] * C-Reactive Protein (01/11/2024 10:22 AM CDT) Only the most recent of2 resultswithin the time period is included. C-Reactive Protein <0.5 0.0 - 0.5 mg/dL 01/11/2024 11:45 AM CDT [facility] Blood Venipuncture / Unknown 01/11/2024 10:22 AM CDT 01/11/2024 10:22 AM CDT Denise Davila MD LAB_1 Performing Organization Address [facility] de Phone Number [facility] [address] [place] [id number] * Sedimentation Rate (ESR) (01/11/2024 10:22 AM CDT) Only the most recent of2 resultswithin the time period is included. [facility] Sedimentation Rate 3 0 - 20 mm/hr 01/11/2024 11:05 AM CDT [facility] Blood Venipuncture / Unknown 01/11/2024 10:22 AM CDT 01/11/2024 10:22 AM CDT Denise Davila MD LAB_1 Performing Organization Address [facility] de Phone Number [facility] [address] * LABORATORY REPORT (01/02/2024) Interface Provider DUMMY/OTHER/AR * Sedimentation Rate (Ext Rslt) (12/21/2023 9:22 AM CDT) [facility] EXT RSLT - SED RATE (ESR) 18 1 - 20 mm/hr PN EXTERNAL LAB-SEE SCANNED DOCUMENT 12/21/2023 9:22 AM CDT Denise Davila MD LAB EXTERNAL R ESULT Performing Organization Address [facility] Co de Phone Number PN EXTERNAL LAB-SEE [...] LAB EXTERNAL R ESULT Performing Organization Address [facility] Co de Phone Number PN EXTERNAL LAB-SEE SCANNED DOCUMENT Do Not Mail * (ABNORMAL) AST (Ext Rslt) (12/21/2023 9:22 AM CDT) EXT RSLT - AST 181(H) 12 - 35 U/L PN EXTERNAL LAB-SEE SCANNED DOCUMENT 12/21/2023 9:22 AM CDT Denise Davila MD LAB EXTERNAL R ESULT Performing Organization Address [facility] Co de Phone Number PN EXTERNAL LAB-SEE SCANNED DOCUMENT Do Not Mail * (ABNORMAL) ALT (Ext Rslt) (12/21/2023 9:22 AM CDT) EXT RSLT - ALT 192(H) 4 - 35 U/L PN E XTERNAL LAB-SEE SCANNED DOCUMENT 12/21/2023 9:22 AM CDT Denise Davila MD LAB EXTERNAL R ESULT Performing Organization Address City/[facility] Co de Phone Number PN EXTERNAL LAB-SEE SCANNED DOCUMENT Do Not Mail * CCP Antibody (12/18/2023 3:21 PM CDT) Pathologist [facility] Anti-CCP Antibody 0.5 0.0 - 6.9 U/mL 12/19/2023 1:00 PM CDT [facility] Anti-CCP Antibody Interpretation Negative Negative 12/19/2023 1:00 PM CDT [facility] Blood Venipuncture / Unknown 12/18/2023 3:21 PM CDT 12/18/2023 3:21 PM CDT Narrative [facility] - 12/19/2023 1:00 PM CDT This result was obtained with the [employer] 250. Quantitative results cannot be directly compared to other manufacturers' methods. Denise Davila MD LAB_1 [facility] [address] * (ABNORMAL) Protein ELP (Serum) (12/18/2023 3:21 PM CDT) [facility] Total Protein 6.9 6.4 - 8.3 g/dL 12/20/2023 10:36 AM T [facility] Albumin 4.3 3.4 - 4.8 g/dL 12/20/2023 10:36 AM [facility] Alpha 1 0.4 0.2 - 0.5 g/dL 12/20/2023 10:36 AM [facility] Alpha 2 0.9 0.5 - 1.1 g/dL 12/20/2023 10:36 AM [facility] Beta 0.7 0.6 - 1.1 g/dL 12/20/2023 10:36 AM [facility] Gamma 0.6(L) 0.7 - 1.6 g/dL 12/20/2023 10:36 AM [facility] Monoclonal Vahid 0.0 <=0.0 g/dL 12/20/2023 10:36 AM [facility] Interpretation Borderline hypogammaglobuli nemia. Consider urine immunofixation to rule out Bence Orozco proteinuria. 12/20/2023 10:36 AM [facility] Signed Out By [facility] 12/20/2023 10:36 AM CDT [facility] Blood Venipuncture / Unknown 12/18/2023 3:21 PM CDT 12/18/2023 3:21 PM CDT Denise Davila MD LAB_1 Performing Organization Address City/[facility]/ZIP Co de Phone Number [facility] [address] * Rheumatoid Factor, Quant (12/18/2023 3:21 PM CDT) Rheumatoid Factor, Quantitative <15 <=30 IU/mL 12/18/2023 9:03 PM CDT [facility] Blood Venipuncture / Unknown 12/18/2023 3:21 PM CDT 12/18/2023 3:21 PM CDT Denise Davila MD LAB_1 Performing Organization Address City/[facility]/ZIP Co de Phone Number [facility] * CK, Total (12/18/2023 3:21 PM CDT) CK, Total 65 29 - 168 U/L 12/20/2023 10:13 AM CDT [facility] Blood Venipuncture / Unknown 12/18/2023 3:21 PM CDT 12/18/2023 3:21 PM CDT Denise Davila MD LAB_1 [facility] [address] from Last 3 Months Care Teams Laboratory Immunologist Relationship Specialty Start Date End Date Clinician, Not Found, [place] [address] PCP - General 03/01/18
--- OUTSIDE RECORDS SUMMARY | 2024-01-31 08:43 | XMS_ITS | Encounter Summary ---
Author Organization [employer] Address [address], [place] [address] Care Team Providers Care Manager Adult Name Role Phone Clinician, Not Found MD Primary Care Provider Un available Reason for Visit * Reason Comments PHONE CALL TO PATIENT Encounter Details Date Type Department Care Team (Late st Contact Info) Description 12/19/2023 Telephone [place] [id number] Rheumatology [facility]. [place], [place] [phone] Denise Davila MD [facility] [place], [place] [id number] PHONE CALL TO PATIENT Social History Tobacco [...] Sharita Henao - 12/19/2023 2:22 PM CDT [facility] records received and placed in your inbox in DIRECTOR RISK. * Suri Stovall RN - 12/19/2023 10:24 AM CDT Spoke to patient, relaying provider's message below. Patient states that she notified the clinic yesterday to have results faxed over to us but she will reach out to them again today. * Denise Davila MD - 12/19/2023 9:59 AM CDT Please call to remind her to have outside records (from [facility] system) and lab results faxed to me to review documented in this encounter Plan of Treatment Upcoming Encounters Date Type Department Care Team (Late st Contact Info) Description 02/26/2024 11:00 AM CDT Appointment [facility] [address] [place] [address] Denise Davila MD [address] [place] [address] 04/25/2024 12:00 PM CDT Appointment [facility] [address] [place] [address] Denise Davila MD [address] [place] [address] documented as of this encounter Visit Diagnoses Not on filedocumented in this encounter Care Teams Manager Adult Relationship Specialty Start Date End Date Clinician, Not Found, [place] [address] PCP - General 03/01/18 documented as of this encounter
--- OUTSIDE RECORDS SUMMARY | 2024-01-31 08:43 | XMS_ITS | Encounter Summary ---
Author Organization [facility] Address [address], [place] [address] Care Team Providers Care Tool Grinding Technician Name Role Phone Clinician, Not Found MD Primary Care Provider Un available Encounter Details Date Type Department Care Team (Late st Contact Info) Description 01/11/2024 10:20 AM CDT Lab Visit [facility] [address] [place], [place] [address] PMR (polymyalgia rheumatica) (HRC); Chronic tophaceous gout [...] Info) Description 02/26/2024 11:00 AM CDT Appointment [facility] [address] [place] [address] Denise Davila MD [facility] [place] [address] 04/25/2024 12:00 PM CDT Appointment [facility] [address] [place] [address] Denise Davila MD [address] [place] [address] documented as of this encounter Procedures Procedure [...] - 1.02 mg/dL 01/15/2024 5:35 PM CDT [facility] GFR, Estimated 28(L) >60 mL/min/1.7 3m2 01/15/2024 5:35 PM CDT [facility] Blood Venipuncture / Unknown 01/11/2024 10:22 AM CDT 01/11/2024 10:22 AM CDT Denise Davila MD LAB_1 Performing Organization Address [facility]/ZIP Co de Phone Number [facility] [address] [place] [address] * Sedimentation Rate (ESR) (01/11/2024 10:22 AM CDT) Sedimentation Rate 3 0 - 20 mm/hr 01/11/2024 11:05 AM CDT [facility] Blood Venipuncture / Unknown 01/11/2024 10:22 AM CDT 01/11/2024 10:22 AM CDT Denise Davila MD LAB_1 Performing Organization Address City/[facility]/ZIP Co de Phone Number [facility] [address] [place] [address] * C-Reactive Protein (01/11/2024 10:22 AM CDT) C-Reactive Protein <0.5 0.0 - 0.5 mg/dL 01/11/2024 11:45 AM CDT [facility] Blood Venipuncture / Unknown 01/11/2024 10:22 AM CDT 01/11/2024 10:22 AM CDT Denise Davila MD LAB_1 [facility] [address] [place] [address] documented in this encounter Visit Diagnoses Diagnosis PMR (polymyalgia rheumatica) (HRC) Polymyalgia rheumatica 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
--- OUTSIDE RECORDS SUMMARY | 2024-01-31 08:43 | XMS_ITS | Encounter Summary ---
Author Organization [facility] Address [address] [place] [address] Care Team Providers Care Beater Engineer Name Role Phone Clinician, Not Found MD Primary Care Provider Un available Encounter Details Date Type Department Care Team (Late st Contact Info) Description 12/18/2023 3:10 PM CDT Lab Visit [facility] [address] [place] [address] Arthralgia, unspecified joint Social History Tobacco Use [...] 02/26/2024 11:00 AM CDT Appointment [facility] [address] [place] [address] Denise Davila MD [address] [facility], [place] [phone] 04/25/2024 12:00 PM CDT Appointment [facility] [address] [place] [address] Denise Davila MD [address] [place], [place] [phone] documented as of this encounter Procedures Procedure [...] CK, Total (12/18/2023 3:21 PM CDT) Pathologist [facility] CK, Total 65 29 - 168 U/L 12/20/2023 10:13 AM CDT [facility] Blood Venipuncture / Unknown 12/18/2023 3:21 PM CDT 12/18/2023 3:21 PM CDT Denise Davila MD LAB_1 [facility] [employer] [facility] [address] * CCP Antibody (12/18/2023 3:21 PM CDT) Pathologist [facility] Anti-CCP Antibody 0.5 0.0 - 6.9 U/mL 12/19/2023 1:00 PM CDT [facility] Anti-CCP Antibody Interpretation Negative Negative 12/19/2023 1:00 PM CDT [facility] Blood Venipuncture / Unknown 12/18/2023 3:21 PM CDT 12/18/2023 3:21 PM CDT Narrative [facility] - 12/19/2023 1:00 PM CDT This result was obtained with the [employer] 250. Quantitative results cannot be directly compared to other manufacturers' methods. Denise Davila MD LAB_1 [facility] [address] * Rheumatoid Factor, Quant (12/18/2023 3:21 PM CDT) Rheumatoid Factor, Quantitative <15 <=30 IU/mL 12/18/2023 9:[address] [facility] Blood Venipuncture / Unknown 12/18/2023 3:21 PM CDT 12/18/2023 3:21 PM CDT Denise Davila MD LAB_1 Performing Organization Address [facility]/ZIP Co de Phone Number [facility] [address] * Sedimentation Rate (ESR) (12/18/2023 3:21 PM CDT) [facility] Sedimentation Rate 12 0 - 20 mm/hr 12/18/2023 3:55 PM CDT [facility] Blood Venipuncture / Unknown 12/18/2023 3:21 PM CDT 12/18/2023 3:21 PM CDT Denise Davila MD LAB_1 [facility] [address] [place] [address] * (ABNORMAL) C-Reactive Protein (12/18/2023 3:21 PM CDT) Pathologist [facility] C-Reactive Protein 1.4(H) 0.0 - 0.5 mg/dL 12/18/2023 5:10 PM T [facility] Blood Venipuncture / Unknown 12/18/2023 3:21 PM CDT 12/18/2023 3:21 PM CDT Denise Davila MD LAB_1 [facility] [address] [place] [address] * (ABNORMAL) Protein ELP (Serum) (12/18/2023 3:21 PM CDT) Total Protein 6.9 6.4 - 8.3 g/dL 12/20/2023 10:36 AM T [facility] Albumin 4.3 3.4 - 4.8 g/dL 12/20/2023 10:36 AM [facility] Alpha 1 0.4 0.2 - 0.5 g/dL 12/20/2023 10:36 AM T [facility] Alpha 2 0.9 0.5 - 1.1 g/dL 12/20/2023 10:36 AM T [facility] Beta 0.7 0.6 - 1.1 g/dL 12/20/2023 10:36 AM [facility] Gamma 0.6(L) 0.7 - 1.6 g/dL 12/20/2023 10:36 AM [facility] Monoclonal Vahid 0.0 <=0.0 g/dL 12/20/2023 10:36 AM [facility] Interpretation Borderline hypogammaglobuli nemia. Consider urine immunofixation to rule out Bence Orozco proteinuria. 12/20/2023 10:36 AM [facility] Signed Out By [facility] 12/20/2023 10:36 AM [facility] Blood Venipuncture / Unknown 12/18/2023 3:21 PM CDT 12/18/2023 3:21 PM CDT eDnise Davila MD LAB_1 [facility] [address] [place], [place] [address] documented in this encounter Visit Diagnoses Diagnosis Arthralgia, unspecified joint documented in this encounter Care Teams Beater Engineer Relationship Specialty Start Date End Date Clinician, Not Found, [place] [address] PCP - General 03/01/18 documented as of this encounter
--- OUTSIDE RECORDS SUMMARY | 2024-01-31 08:43 | XMS_ITS | Encounter Summary ---
Author Organization [employer] Address [address] [address] Care Team Providers Care Energy Consultant Name Role Phone Clinician, Not Found MD Primary Care Provider Un available Encounter Details Date Type Department Care Team (Late st Contact Info) Description 12/27/2023 Notes/Orders [place] [address] [place] [address]. [place], [place] [phone] Denise Davila MD [facility] [place], [place] [phone] Social History Tobacco Use Types Packs/Day Years [...] also seen by her primary yesterday at [facility].She is scheduled to have imaging study of her liver and echocardiogram. I called her primary Dr. Newton at phone number [phone] to discuss about her condition. I still could not reach Dr. Chandler and left her phone number to call me back. documented in this encounter Plan of Treatment Upcoming Encounters Date Type Department Care Team (Late st Contact Info) Description 02/26/2024 11:00 AM CDT Appointment [facility] [address] [place] [address] [place] [address] [place] [address] 04/25/2024 12:00 PM CDT Appointment [facility] [address] [place] [address] Denise Davila MD [address] [place] [address] documented as of this encounter Visit Diagnoses Not on filedocumented in this encounter Care Teams Energy Consultant Relationship Specialty Start Date End Date Clinician, Not Found, [place] [address] PCP - General 03/01/18 documented as of this encounter
--- OUTSIDE RECORDS SUMMARY | 2024-01-31 08:43 | XMS_ITS | Encounter Summary ---
Author Organization [facility] Address [address], [place] [address] Care Team Providers Care Pit Shovel Operator Name Role Phone Clinician, Not Found MD Primary Care Provider Un available Encounter Details Date Type Department Care Team (Latest Contact Info) Description 01/02/2024 Orders Only HIM DEPARTMENT Provider, [place] [address] Social History Tobacco Use Types Packs/Day Years [...] Info) Description 02/26/2024 11:00 AM CDT Appointment [facility] [address] [place] [address] Denise Davila MD [address] [place] [address] 04/25/2024 12:00 PM CDT Appointment [facility] [address] [place] [address] Denise Davila MD [address] [place] [address] documented as of this encounter Procedures Procedure Name Priority Date/Time Associated Diagnosis Comments LABORATORY REPORT 01/02/2024 documented in this encounter Results * LABORATORY REPORT (01/02/2024) Interface Provider DUMMY/OTHER/AR documented in this encounter Visit Diagnoses Not on filedocumented in this encounter Care Teams Pit Shovel Operator Relationship Specialty Start Date End Date Clinician, Not Found, [place] [address] PCP - General 03/01/18 documented as of this encounter
--- OUTSIDE RECORDS SUMMARY | 2024-01-31 08:43 | XMS_ITS | Encounter Summary ---
Author Organization [facility] Address [address], [place] [address] Care Team Providers Care Ham Trimmer Name Role Phone Clinician, Not Found MD Primary Care Provider Un available Encounter Details Date Type Department Care Team (Late st Contact Info) Description 12/20/2023 Notes/Orders [place] [address] [place] [address]. [place] [address] Denise Davila MD [address] [place] [address] [phone] Arthralgia, unspecified joint (Primary Dx); PMR (polymyalgia [...] 7:43 AM CDT Received outside records from [facility]: Based on the outside record notes, [...] prednisone (5-mg tablet) to her local pharmacy ([facility], not the [facility] script) so that she can follow this [...] Info) Description 02/26/2024 11:00 AM CDT Appointment [facility] [address] [place] [address] [place] [address] [place] [address] 04/25/2024 12:00 PM CDT Appointment [facility] [address] [place] [address] Denise Davila MD [address] [place], [place] 722226 Scheduled Orders Name Type Priority Associated Diagnoses Orde r Schedule C-Reactive Protein Lab Routine PMR (polymyalgia rheumatica) (HRC) 12 Occurrences starting 12/20/2023 until 12/19/2024, 1 completed Sedimentation Rate (ESR) Lab Routine PMR (polymyalgia rheumatica) ([facility]) 12 Occurrences starting 12/20/2023 until 12/19/2024, 1 completed documented as of this encounter Results * Sedimentation Rate (ESR) (01/11/2024 10:22 AM CDT) Sedimentation Rate 3 0 - 20 mm/hr 01/11/2024 11:05 AM CDT [facility] Blood Venipuncture / Unknown 01/11/2024 10:22 AM CDT 01/11/2024 10:22 AM CDT Denise Davila MD LAB_1 [facility] [address] [place] [address] * C-Reactive Protein (01/11/2024 10:22 AM CDT) [facility] C-Reactive Protein <0.5 0.0 - 0.5 mg/dL 01/11/2024 11:45 AM CDT [facility] Blood Venipuncture / Unknown 01/11/2024 10:22 AM CDT 01/11/2024 10:22 AM CDT Denise Davila MD LAB_1 Performing Organization Address City/[facility]/ZIP Co de Phone Number [facility] [address] [place] [address], [facility] * CK, Total (12/18/2023 3:21 PM CDT) [facility] CK, Total 65 29 - 168 U/L 12/20/2023 10:13 AM CDT [facility] Blood Venipuncture / Unknown 12/18/2023 3:21 PM CDT 12/18/2023 3:21 PM CDT Denise Davila MD LAB_1 [facility] [address] documented in this encounter Visit Diagnoses Diagnosis Arthralgia, unspecified joint- Primary PMR (polymyalgia rheumatica) (HRC) Polymyalgia rheumatica documented in this encounter Care Teams Ham Trimmer Relationship Specialty Start Date End Date Clinician, Not Found, [place] [address] PCP - General 03/01/18 documented as of this encounter
--- OUTSIDE RECORDS SUMMARY | 2024-01-31 08:43 | XMS_ITS | Encounter Summary ---
Author Organization [facility] Address [address] [place] [address] Care Team Providers Care Master Ocean Yacht Name Role Phone Clinician, Not Found MD Primary Care Provider Un available Reason for Visit * Reason Comments Refill Encounter Details Date Type Department Care Team (Late st Contact Info) Description 11/13/2023 Refill [facility] [address] [place], [place] 836107 Denise Davila MD [address] [place] [address] Refill Social History Tobacco Use [...] Info) Description 02/26/2024 11:00 AM CDT Appointment [facility] [address] [place] [address] Denise Davila MD [address] [place] [address] 04/25/2024 12:00 PM CDT Appointment [facility] [address] [place] [address] Denise Davila MD [address] [place] [address] documented as of this encounter Visit Diagnoses Diagnosis Osteoarthritis of multiple joints, unspecified osteoarthritis type documented in this encounter Care Teams Master Ocean Yacht Relationship Specialty Start Date End Date Clinician, Not Found, [place] [address] PCP - General 03/01/18 documented as of this encounter
--- OUTSIDE RECORDS SUMMARY | 2024-01-31 08:43 | XMS_ITS | Encounter Summary ---
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 Procedures [facility] Bone Density Spine/Hip Denise Davila MD [address] [place] [address] Referral ID Status Reason Start Date Expiration Date V isits Requested Visits Authorized [id number] Incomplete 01/15/2024 04/15/2025 1 1 Reason for Visit * Reason Comments Follow-up Encounter Details Date Type Department Care Team (Late st Contact Info) Description 01/15/2024 2:30 PM CDT Office Visit [facility] [address] [place] [address] Denise Davila MD [address] [place], [place] [phone] PMR (polymyalgia rheumatica) (HRC) (Primary Dx); Chronic tophaceous gout; Osteoarthritis of multiple joints, unspecified osteoarthritis type; 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 She is about to see her fiber heel piece shaper in 2 days. 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 Expected: 01/15/2024 (Approximate), Expires: 01/14/2025 documented as of this encounter Results * (ABNORMAL) Creatinine / GFR (01/11/2024 10:22 AM CDT) Creatinine 1.79(H) 0.55 - 1.02 mg/dL 01/15/2024 5:35 PM CDT [facility] GFR, Estimated 28(L) >60 mL/min/1.7 3m2 01/15/2024 5:35 PM CDT [facility] Blood Venipuncture / Unknown 01/11/2024 10:22 AM CDT 01/11/2024 10:22 AM CDT Denise Davila MD LAB_1 [facility] [address] [place] [address], [facility] documented in this encounter Visit Diagnoses Diagnosis PMR (polymyalgia rheumatica) (HRC)- Primary Polymyalgia rheumatica 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
== END 2024-01-31 08:30 | disposition home or self-care (01) ==
PROVIDERS: PCP Family Medicine; Visit Provider Family Medicine
DX: I12.9 Hypertensive chronic kidney disease with stage 1 through stage 4 chronic kidney disease, or unspecified chronic kidney disease (principal); N18.9 Chronic kidney disease, unspecified; I48.19 Other persistent atrial fibrillation; I51.3 Intracardiac thrombosis, not elsewhere classified; Z79.01 Long term (current) use of anticoagulants
CPT/HCPCS: 80048; 85610

== ENCOUNTER 2024-02-07 10:11 | Outpatient (CLI) | payer MEDICARE, OTHER, SELFPAY ==
--- OUTSIDE RECORDS SUMMARY | 2024-02-08 12:30 | XMS_ITS | Continuity of Care Document ---
Author Organization [facility] Address [address] [address] [place] [address] Phone Care Team Providers Care Clinical Nurse Reviewer Name Role Phone Palomo GAYLE, Oswald Unavailable [...] 3 Level Iv-surg Path Gross/micro Offic/outpt [facility] Advance Directives Directive Yes / No [...] Diagnoses Date Provider Providers Copied on Encounter [facility] [address] [address], [place], [id number], [place] tel:[phone] [facility] GI Symptoms or Concerns (chief complaint) Other fecal abnormalitiesDivert iculosis of colon without diverticulitisHemor rhoids, externalDiarrhea, unspecifiedLymphocy tic colitisDiarrhea, unspecifiedResidual hemorrhoidal skin tagsDvrtclos of lg int w/o perforation or abscess w/o bleeding 3 Palomo Akers. [address] [facility], [facility] [address], [facility] [place], [place], [id number] , [place]. tel: [phone] Referring Provider: Referral Self, USE FOR SELF REFERRALS. [facility], [address] [address], [place], [id number], [place] tel:[phone] [facility] Loose stools 3 Reid Manzo. [address] [facility], [address], Karla [place], [id number] , [place]. [phone] Offic/outpt E&[facility], [address] [address], [place], [id number], [place] tel:[phone] [place] [address] GI Symptoms or Concerns (chief complaint) Loose stoolsWeight loss, unintentional May- 3 Reid Manzo. [address] [facility], [address], [place], [place], [id number] , [place]. tel:[phone] Referring Provider: Tamera Newton MD, [address] [place], [address]. tel:[phone] [facility], [address] [address], [place], [place], [id number], [place] tel:[phone] [facility] No Information Apr- 3 Bradly Matos. [address] [facility], [address], [place], [place], [id number] , [place]. tel:[phone] Family History Family Member Type Diagnosis Age [...] Registry Payers Payer name Insurance type Covered green party ID Authoriza tion(s) Medicare NGS MB [id number] [facility] [id number] Social History Type Description Quantity Date Captured [...] a week. 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
--- OUTSIDE RECORDS SUMMARY | 2024-02-08 12:30 | XMS_ITS | Continuity of Care Document ---
Author Organization [facility] Address [address] [place] [address] Phone Care Team Providers Care Pin Chaser Name Role Phone Unavailable Unavailable Unavailable Allergies, [...] Copied on Encounter [facility], [address], [place], [id number] , [place] tel:[phone] [facility] No Information May-2 No Information Office/Outpat ient Visit,Est, Mod [facility], [address], [place], [id number] , [place] tel:[phone] [facility] Other idiopathic scoliosis, lumbar region Rafa Miller. [facility], [address], [facility] [address], [place], [place], [id number], [place]. tel:[phone] Referring Provider: Terry Grant, [facility] [address] [place], [address]. tel:[phone] Office/Outpat ient Visit,New, Mod [facility], [address], [place], [place], [id number] , [place] tel:[phone] [facility] Spinal stenosis, lumbar region with neurogenic claudication Spondylolysi s, lumbar regionOther idiopathic scoliosis, lumbar region 1 No Information Referring Provider: Terry Grant, [facility] [address] [place], [address]. tel:[phone] Family History Family Member Type Diagnosis Age At Onset No Information Payers Payer name Insurance type Covered republican ID Authorzaydaa brigette(s) Medicare [id number] For Life/Retired Hunter [id number] Social History Type Description Quantity Date Captured [...]
--- OUTSIDE RECORDS SUMMARY | 2024-02-08 12:31 | XMS_ITS | Encounter Summary ---
Author Organization [facility] Address [address], [place] [address] Care Team Providers Care Head Librarian Name Role Phone Clinician, Not Found MD Primary Care Provider Un available Encounter Details Date Type Department Care Team (Late st Contact Info) Description 01/11/2024 10:20 AM CDT Lab Visit [facility] [address] [place], [place] [address] PMR (polymyalgia rheumatica) (HRC); Chronic tophaceous gout [...] Info) Description 02/26/2024 11:00 AM CDT Appointment [facility] [address] [place] [address] Denise Davila MD [facility][note 2] [place] [address] 04/25/2024 12:00 PM CDT Appointment [facility] [address] [place] [address] Denise Davila MD [address] [place] [address] 06/24/2024 12:00 PM 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 Appointment [facility] [address] [place] [address] Denise Davila MD [address] [place], [place] [phone] documented as of this encounter Procedures Procedure [...] - 1.02 mg/dL 01/15/2024 5:35 PM CDT [facility] GFR, Estimated 28(L) >60 mL/min/1.7 3m2 01/15/2024 5:35 PM CDT [facility] Blood Venipuncture / Unknown 01/11/2024 10:22 AM CDT 01/11/2024 10:22 AM CDT Denise Davila MD LAB_1 [facility] [address] [place] [address] * Sedimentation Rate (ESR) (01/11/2024 10:22 AM CDT) Sedimentation Rate 3 0 - 20 mm/hr 01/11/2024 11:05 AM CDT [facility] Blood Venipuncture / Unknown 01/11/2024 10:22 AM CDT 01/11/2024 10:22 AM CDT Denise Davila MD LAB_1 Performing Organization Address [facility] Co de Phone Number [facility] [address] [place] [address] * C-Reactive Protein (01/11/2024 10:22 AM CDT) C-Reactive Protein <0.5 0.0 - 0.5 mg/dL 01/11/2024 11:45 AM CDT [facility] Blood Venipuncture / Unknown 01/11/2024 10:22 AM CDT 01/11/2024 10:22 AM CDT Denise Davila MD LAB_1 Performing Organization Address [facility] de Phone Number [facility] [address] [place] [address] documented in this encounter Visit Diagnoses Diagnosis PMR (polymyalgia rheumatica) (HRC) Polymyalgia rheumatica 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
--- OUTSIDE RECORDS SUMMARY | 2024-02-08 12:31 | XMS_ITS | Encounter Summary ---
Author Organization [facility] Address [address] [place] [address] Care Team Providers Care Business Development Manager Name Role Phone Clinician, Not Found MD Primary Care Provider Un available Encounter Details Date Type Department Care Team (Late st Contact Info) Description 12/18/2023 3:10 PM CDT Lab Visit [facility] [address] [place] [address] Arthralgia, unspecified joint Social History Tobacco Use [...] Info) Description 02/26/2024 11:00 AM CDT Appointment [facility] [address] [place] [address] Denise Davila MD [address] [facility] [place], [place] [phone] 04/25/2024 12:00 PM CDT Appointment [facility] [address] [place] [address] Denise Davila MD [address] [place], [place] [phone] 06/24/2024 12:00 PM BREAD JOCKEY Appointment [facility] [address] [place], [place] [address] Denise Davila MD [address] [place] [address] documented as of this encounter Procedures Procedure [...] - 168 U/L 12/20/2023 10:13 AM CDT [facility] Blood Venipuncture / Unknown 12/18/2023 3:21 PM CDT 12/18/2023 3:21 PM CDT Denise Davila MD LAB_1 [facility] [address] [place] [id number] * CCP Antibody (12/18/2023 3:21 PM CDT) Anti-CCP Antibody 0.5 0.0 - 6.9 U/mL 12/19/2023 1:00 PM CDT [facility] Anti-CCP Antibody Interpretation Negative Negative 12/19/2023 1:00 PM CDT [facility] Blood Venipuncture / Unknown 12/18/2023 3:21 PM CDT 12/18/2023 3:21 PM CDT Narrative [facility] - 12/19/2023 1:00 PM CDT This result was obtained with the [employer] 250. Quantitative results cannot be directly compared to other manufacturers' methods. Denise Davila MD LAB_1 Performing Organization Address City/[facility]/ZIP Co de Phone Number [facility] [address] * Rheumatoid Factor, Quant (12/18/2023 3:21 PM CDT) Pathologist [facility] Rheumatoid Factor, Quantitative <15 <=30 IU/mL 12/18/2023 9:03 PM CDT [facility] Blood Venipuncture / Unknown 12/18/2023 3:21 PM CDT 12/18/2023 3:21 PM CDT Denise Davila MD LAB_1 [facility] [address] * Sedimentation Rate (ESR) (12/18/2023 3:21 PM CDT) Pathologist [facility] Sedimentation Rate 12 0 - 20 mm/hr 12/18/2023 3:55 PM CDT [facility] Blood Venipuncture / Unknown 12/18/2023 3:21 PM CDT 12/18/2023 3:21 PM CDT Denise Davila MD LAB_1 Performing Organization Address [facility]/ZIP Co de Phone Number [facility] [address] [place] [address] [place] [address] * (ABNORMAL) C-Reactive Protein (12/18/2023 3:21 PM CDT) [facility] C-Reactive Protein 1.4(H) 0.0 - 0.5 mg/dL 12/18/2023 5:10 PM CDT [facility] Blood Venipuncture / Unknown 12/18/2023 3:21 PM CDT 12/18/2023 3:21 PM CDT Denise Davila MD LAB_1 Performing Organization Address [facility] Co de Phone Number [facility] [address] [place] [phone] * (ABNORMAL) Protein ELP (Serum) (12/18/2023 3:21 PM CDT) [facility] Total Protein 6.9 6.4 - 8.3 g/dL 12/20/2023 10:36 AM T [facility] Albumin 4.3 3.4 - 4.8 g/dL 12/20/2023 10:36 AM T [facility] Alpha 1 0.4 0.2 - 0.5 g/dL 12/20/2023 10:36 AM COUNTS INCLUDE 234 BEDS AT THE [facility] Alpha 2 0.9 0.5 - 1.1 g/dL 12/20/2023 10:36 AM T [facility] Beta 0.7 0.6 - 1.1 g/dL 12/20/2023 10:36 AM COUNTS INCLUDE 234 [facility]S AT THE [facility] Gamma 0.6(L) 0.7 - 1.6 g/dL 12/20/2023 10:36 AM T [facility] Monoclonal Vahid 0.0 <=0.0 g/dL 12/20/2023 10:36 AM COUNTS INCLUDE 234 B[facility]S AT THE [facility] Interpretation Borderline hypogammaglobuli nemia. Consider urine immunofixation to rule out Bence Orozco proteinuria. 12/20/2023 10:36 AM CDT [facility] Signed Out By [facility] Central [facility] 12/20/2023 10:36 AM CDT [facility] Blood Venipuncture / Unknown 12/18/2023 3:21 PM CDT 12/18/2023 3:21 PM CDT Denise Davila MD LAB_1 Performing Organization Address City/State/[facility] Co de Phone Number [facility] [address] documented in this encounter Visit Diagnoses Diagnosis Arthralgia, unspecified joint documented in this encounter Care Teams Business Development Manager Relationship Specialty Start Date End Date Clinician, Not Found, [place] [address] PCP - General 03/01/18 documented as of this encounter
--- OUTSIDE RECORDS SUMMARY | 2024-02-08 12:31 | XMS_ITS | Encounter Summary ---
Author Organization [facility] VegasMy[facility] Address [address] [address] Care Team Providers Care Employment Interviewer Name Role Phone Clinician, Not Found MD Primary Care Provider Un available Encounter Details Date Type Department Care Team (Latest Contact Info) Description 01/02/2024 Orders Only HIM DEPARTMENT Provider, [place] [address] Social History Tobacco Use Types Packs/Day Years [...] Info) Description 02/26/2024 11:00 AM CDT Appointment [facility] [address] [place] [address] Denise Davila MD [address] [place] [address] 04/25/2024 12:00 PM CDT Appointment [facility] [address] [place] [address] Denise Davila MD [address] [place] [address] 06/24/2024 12:00 PM RECORDS MANAGEMENT ASSOCIATE Appointment [facility] [address] [place] [address] Denise Davila MD [address] [place] [address] documented as of this encounter Procedures Procedure Name Priority Date/Time Associated Diagnosis Comments LABORATORY REPORT 01/02/2024 documented in this encounter Results * LABORATORY REPORT (01/02/2024) Interface Provider DUMMY/OTHER/AR documented in this encounter Visit Diagnoses Not on filedocumented in this encounter Care Teams Employment Interviewer Relationship Specialty Start Date End Date Clinician, Not Found, [place] [address] PCP - General 03/01/18 documented as of this encounter
--- OUTSIDE RECORDS SUMMARY | 2024-02-08 12:31 | XMS_ITS | Encounter Summary ---
Author Organization [employer] Address [address], [place] [address] Care Team Providers Care Cyber Software Engineer Name Role Phone Clinician, Not Found MD Primary Care Provider Un available Encounter Details Date Type Department Care Team (Late st Contact Info) Description 12/27/2023 Notes/Orders [place] [address] [place] [address]. [place], [place] [phone] Denise Davila MD [facility] [place], [place] [phone] Social History Tobacco Use Types Packs/Day Years [...] also seen by her primary yesterday at [facility].She is scheduled to have imaging study of her liver and echocardiogram. I called her primary Dr. Newton at phone number [phone] to discuss about her condition. I still could not reach Dr. Chandler and left her phone number to call me back. documented in this encounter Plan of Treatment Upcoming Encounters Date Type Department Care Team (Late st Contact Info) Description 02/26/2024 11:00 AM CDT Appointment [facility] [address] [place] [address] [place] [address] [place] [address] 04/25/2024 12:00 PM CDT Appointment [facility] [address] [place] [address] Denise Davila MD [address] [place] [address] 06/24/2024 12:00 PM STRATEGIC MARKETING ASSOCIATE Appointment [facility] [address] [place] [address] Denise Davila MD [address] [place] [address] documented as of this encounter Visit Diagnoses Not on filedocumented in this encounter Care Teams Cyber Software Engineer Relationship Specialty Start Date End Date Clinician, Not Found, [place] [address] PCP - General 03/01/18 documented as of this encounter
--- OUTSIDE RECORDS SUMMARY | 2024-02-08 12:31 | XMS_ITS | Encounter Summary ---
Author Organization [facility] Address [address] [place] [address] Care Team Providers Care Area Development Manager Name Role Phone Clinician, Not Found MD Primary Care Provider Un available Reason for Visit * Reason Comments Refill Encounter Details Date Type Department Care Team (Late st Contact Info) Description 11/13/2023 Refill [facility] [address] [place], [place] [address] Denise Davila MD [address] [place] [address] Refill Social History Tobacco Use [...] Info) Description 02/26/2024 11:00 AM CDT Appointment [facility] [address] [place] [address] [place] [address] [place] [address] 04/25/2024 12:00 PM CDT Appointment [facility] [address] [place] [address] Denise Davila MD [address] [place] [address] 06/24/2024 12:00 PM 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
--- OUTSIDE RECORDS SUMMARY | 2024-02-08 12:31 | XMS_ITS | Clinical Summary ---
Author Organization [facility] Address [address], [place] [address] Care Team Providers Care Brand Communications Manager Name Role Phone Clinician, Not Found MD Primary Care Provider Un available Source Comments You are receiving this document as you are listed as the primary care provider,follow-up provider, or the patient has been referred to you for consultation.This is in compliance with the Medicare and[facility] Hospital[facility] EHR Incentive Program,which states Providers who transition their patient to another setting of careor provider of care or refers their patient to another provider of care shouldprovide summary care record for each transition of care or referral. 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 Renal insufficiency 10/01/2020 Hyperuricemia 09/10/2020 S/P total knee arthroplasty, bilateral 8 S/P appendectomy 03/29/2018 Restless legs syndrome (RLS) 03/29/2018 Chronic left shoulder pain 03/29/2018 Psoriatic arthritis 03/29/2018 Sensorineural hearing loss 02/22/2005 Overview: LW Onset: [id number] ; Hearing Loss Sensorineural Undiagnosed cardiac murmurs 02/22/2005 Overview: LW Modifier: functional LW Onset: 95Vyt24 ; Heart Murmur Right bundle branch block 02/22/2005 Overview: LW Onset: 53Nms51 Obesity 05/04/2004 Overview: LW Onset: 82Yhp79 Essential hypertension 01/17/2003 Overview: Hypertension Hypothyroidism 01/17/2003 Overview: Hypothyroidism Acquired Osteoarthritis 01/17/2003 Overview: DJD Chronic kidney disease, stage 3b Encounters Date Type Department Care Team Description 01/15/2024 2:30 PM CDT Office Visit [facility] [address] [place] [address] Denise Davila MD PMR (polymyalgia rheumatica) (HRC) (Primary Dx); Chronic tophaceous gout; Osteoarthritis of multiple joints, unspecified osteoarthritis type; 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 [address] Denise Davila MD 12/20/2023 Notes/Orders [place] [address] [place] [address] [place] [address] Denise Davila MD Arthralgia, unspecified joint (Primary Dx); PMR (polymyalgia rheumatica) (HRC) 12/19/2023 Telephone [place] [address] [place] [address]. [place] [address] Denise Davila MD PHONE CALL TO PATIENT 12/18/2023 3:10 PM CDT Lab Visit [facility] [address] [place] [address] Arthralgia, unspecified joint 12/18/2023 2:30 PM CDT Office Visit [facility] [address] [place] [address] Denise Davila MD Chronic tophaceous gout (Primary Dx); Osteoarthritis of multiple joints, unspecified osteoarthritis type; Arthralgia, unspecified joint 11/13/2023 Refill [facility] [address] [place] [address] Denise Davila MD Refill from Last 3 Months Immunizations Name Administration Dates Next Due Flu Vac Preserv Free (3+yrs) 04/21/2013, 04/28/2009,05/21/2006,2004,05/04/2004 Influenza IIV3 (Trivalent) F luzone Highdose, 65+ Yrs (14288) 06/15/2020,07/01/2019,05/27/2018,2017,05/30/2017,05/15/2016,04/28/2014 Influenza IIV4 (Quadrivalent ) Fluad, 65+ [...] Info) Description 02/26/2024 11:00 AM CDT Appointment [facility] [address] [place] [address] [place] [address] [place] [address] 04/25/2024 12:00 PM CDT Appointment [facility] [address] [place] [address] Denise Davila MD [address] [place] [address] 06/24/2024 12:00 PM 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 Appointment [facility] [address] [place] [address] Denise Davila MD [address] [place] [address] Health Maintenance Due Date Last Done Comments Medicare Annual Wellness Visit 1940 Dexa 02/27/2005 COVID-19 Vaccine (2022- season) 2023 06/03/2022, 07/08/2021, 10/11/2020, Additional history exists DTaP/Tdap/Td (3 - Tdap) 09/24/2029 09/24/19 20, 03/26/2009, 07/19/1998 HepA Aged Out 11/20/2012, 10/17/2012 [...] Creatinine / GFR (01/11/2024 10:22 AM CDT) Pathologist [facility] Creatinine 1.79(H) 0.55 - 1.02 mg/dL 01/15/2024 5:35 PM CDT [facility] GFR, Estimated 28(L) >60 mL/min/1.7 3m2 01/15/2024 5:35 PM CDT [facility] Blood Venipuncture / Unknown 01/11/2024 10:22 AM CDT 01/11/2024 10:22 AM CDT Tawatchai Paisansinsup MD LAB_1 Performing Organization Address [facility] de Phone Number [facility] [address] [place] [address] * C-Reactive Protein (01/11/2024 10:22 AM CDT) Only the most recent of2 resultswithin the time period is included. C-Reactive Protein <0.5 0.0 - 0.5 mg/dL 01/11/2024 11:45 AM CDT [facility] Blood Venipuncture / Unknown 01/11/2024 10:22 AM CDT 01/11/2024 10:22 AM CDT Denise Davila MD LAB_1 Performing Organization Address [facility] Phone Number [address] * Sedimentation Rate (ESR) (01/11/2024 10:22 AM CDT) Only the most recent of2 resultswithin the time period is included. Sedimentation Rate 3 0 - 20 mm/hr 01/11/2024 11:05 AM CDT [facility] Blood Venipuncture / Unknown 01/11/2024 10:22 AM CDT 01/11/2024 10:22 AM CDT Denise Davila MD LAB_1 Performing Organization Address [facility] de Phone Number [address] * LABORATORY REPORT (01/02/2024) Interface Provider MD DUMMY/OTHER/AR * Sedimentation Rate (Ext Rslt) (12/21/2023 [...] LAB EXTERNAL R ESULT Performing Organization Address [facility] Co de Phone Number PN EXTERNAL LAB-SEE SCANNED DOCUMENT Do Not Mail * Scanned result (Ext Rslt) (12/21/2023 9:22 AM CDT) Pathologist [facility] Ext Rslt - Scanned CRP PN EXTERNAL LAB-SEE SCANNED DOCUMENT 12/21/2023 9:22 AM CDT Denise Davila MD LAB EXTERNAL R ESULT Performing Organization Address [facility] Co de Phone Number PN EXTERNAL [...] - 6.9 U/mL 12/19/2023 1:00 PM CDT [facility] Anti-CCP Antibody Interpretation Negative Negative 12/19/2023 1:00 PM CDT [facility] Blood Venipuncture / Unknown 12/18/2023 3:21 PM CDT 12/18/2023 3:21 PM CDT Narrative [facility] - 12/19/2023 1:00 PM CDT This result was obtained with the [employer] 250. Quantitative results cannot be directly compared to other manufacturers' methods. Denise Davila MD LAB_1 Performing Organization Address [facility] Co de Phone Number [facility] [address] * (ABNORMAL) Protein ELP (Serum) (12/18/2023 3:21 PM CDT) Total Protein 6.9 6.4 - 8.3 g/dL 12/20/2023 10:36 [address] CDT [facility] Albumin 4.3 3.4 - 4.8 g/dL 12/20/2023 10:36 AM CDT [facility] Alpha 1 0.4 0.2 - 0.5 g/dL 12/20/2023 10:36 AM CDT [facility] Alpha 2 0.9 0.5 - 1.1 g/dL 12/20/2023 10:36 AM CDT [facility] Beta 0.7 0.6 - 1.1 g/dL 12/20/2023 10:36 AM CDT [facility] Gamma 0.6(L) 0.7 - 1.6 g/dL 12/20/2023 10:36 AM CDT [facility] Monoclonal Vahid 0.0 <=0.0 g/dL 12/20/2023 10:36 AM CDT [facility] Interpretation Borderline hypogammaglobuli nemia. Consider urine immunofixation to rule out Bence Orozco proteinuria. 12/20/2023 10:36 AM CDT [facility] Signed Out By [facility] 12/20/2023 10:36 AM CDT [facility] Blood Venipuncture / Unknown 12/18/2023 3:21 PM CDT 12/18/2023 3:21 PM CDT Denise Davila MD LAB_1 Performing Organization Address City/[facility]/ZIP Co de Phone Number [facility] [address] * Rheumatoid Factor, Quant (12/18/2023 3:21 PM CDT) Rheumatoid Factor, Quantitative <15 <=30 IU/mL 12/18/2023 9:03 PM CDT [facility] Blood Venipuncture / Unknown 12/18/2023 3:21 PM CDT 12/18/2023 3:21 PM CDT Denise Davila MD LAB_1 Performing Organization Address [facility]/ZIP Co de Phone Number [facility] [address] * CK, Total (12/18/2023 3:21 PM CDT) CK, Total 65 29 - 168 U/L 12/20/2023 10:13 AM CDT [facility] Blood Venipuncture / Unknown 12/18/2023 3:21 PM CDT 12/18/2023 3:21 PM CDT Denise Davila MD LAB_1 [facility] [address] [place] [address], [facility] from Last 3 Months Care Teams Brand Communications Manager Relationship Specialty Start Date End Date Clinician, Not Found, [place] [address] PCP - General 03/01/18
--- OUTSIDE RECORDS SUMMARY | 2024-02-08 12:31 | XMS_ITS | Encounter Summary ---
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 Procedures [facility] Spine/Hip Denise Davila MD [address] [place] [address] Referral ID Status Reason Start Date Expiration Date V isits Requested Visits Authorized [id number] Incomplete 01/15/2024 04/15/2025 1 1 Reason for Visit * Reason Comments Follow-up Encounter Details Date Type Department Care Team (Late st Contact Info) Description 01/15/2024 2:30 PM CDT Office Visit [facility] [address] [place] [address] Denise Davila MD [address] [place], [place] [phone] PMR (polymyalgia rheumatica) (HRC) (Primary Dx); Chronic tophaceous gout; Osteoarthritis of multiple joints, unspecified osteoarthritis type; 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 She is about to see her remnants cutter in 2 days. 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 Expected: 01/15/2024 (Approximate), Expires: 01/14/2025 documented as of this encounter Results * (ABNORMAL) Creatinine / GFR (01/11/2024 10:22 AM CDT) Creatinine 1.79(H) 0.55 - 1.02 mg/dL 01/15/2024 5:35 PM CDT [facility] GFR, Estimated 28(L) >60 mL/min/1.7 3m2 01/15/2024 5:35 PM CDT [facility] Blood Venipuncture / Unknown 01/11/2024 10:22 AM CDT 01/11/2024 10:22 AM CDT Denise Davila MD LAB_1 [facility] [address] [place] [address] documented in this encounter Visit Diagnoses Diagnosis PMR (polymyalgia rheumatica) (HRC)- Primary Polymyalgia rheumatica 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
--- OUTSIDE RECORDS SUMMARY | 2024-02-08 12:31 | XMS_ITS | Encounter Summary ---
Author Organization [facility] Address [address], [place] [address] Care Team Providers Care Glass Belt Sander Name Role Phone Clinician, Not Found MD Primary Care Provider Un available Encounter Details Date Type Department Care Team (Late st Contact Info) Description 12/20/2023 Notes/Orders [place] [address] [place] [address]. [place] [address] Denise Davila MD [address] [place] [phone] Arthralgia, unspecified joint (Primary Dx); PMR (polymyalgia [...] outside records from [facility]: Based on the outside record notes, the [...] prednisone (5-mg tablet) to her local pharmacy ([facility], not the [facility] script) so that she can follow this [...] Info) Description 02/26/2024 11:00 AM CDT Appointment [facility] [address] [place] [address] [place] [address] [place] [address] 04/25/2024 12:00 PM CDT Appointment [facility] [address] [place] [address] Denise Davila MD [address] [place] [address] 06/24/2024 12:00 PM MISCELLANEOUS MACHINE OPERATOR Appointment [facility] [address] [place] [address] Denise Davila MD [address] [place] [address] Scheduled Orders Name Type Priority Associated Diagnoses Orde r Schedule C-Reactive Protein Lab Routine PMR (polymyalgia rheumatica) ([facility]) 12 Occurrences starting 12/20/2023 until 12/19/2024, 1 completed Sedimentation Rate (ESR) Lab Routine PMR (polymyalgia rheumatica) (HRC) 12 Occurrences starting 12/20/2023 until 12/19/2024, 1 completed documented as of this encounter Results * Sedimentation Rate (ESR) (01/11/2024 10:22 AM CDT) Sedimentation Rate 3 0 - 20 mm/hr 01/11/2024 11:05 AM CDT [facility] Blood Venipuncture / Unknown 01/11/2024 10:22 AM CDT 01/11/2024 10:22 AM CDT Denise Davila MD LAB_1 Performing Organization Address [facility] Co de Phone Number [facility] [address] [place] [address] * C-Reactive Protein (01/11/2024 10:22 AM CDT) C-Reactive Protein <0.5 0.0 - 0.5 mg/dL 01/11/2024 11:45 AM CDT [facility] Blood Venipuncture / Unknown 01/11/2024 10:22 AM CDT 01/11/2024 10:22 AM CDT Denise Davila MD LAB_1 Performing Organization Address [facility] Co de Phone Number [facility] [address] [place] [address], [facility] * CK, Total (12/18/2023 3:21 PM CDT) CK, Total 65 29 - 168 U/L 12/20/2023 10:13 AM CDT [facility] Blood Venipuncture / Unknown 12/18/2023 3:21 PM CDT 12/18/2023 3:21 PM CDT Denise Davila MD LAB_1 Performing Organization Address [facility] Co de Phone Number [facility] [address] documented in this encounter Visit Diagnoses Diagnosis Arthralgia, unspecified joint- Primary PMR (polymyalgia rheumatica) (HRC) Polymyalgia rheumatica documented in this encounter Care Teams Glass Belt Sander Relationship Specialty Start Date End Date Clinician, Not Found, [place] [address] PCP - General 03/01/18 documented as of this encounter
--- OUTSIDE RECORDS SUMMARY | 2024-02-08 12:31 | XMS_ITS | Encounter Summary ---
Author Organization [facility] Address [address] [place] [address] Care Team Providers Care Hand Ii Cutter Name Role Phone Clinician, Not Found MD Primary Care Provider Un available Reason for Visit * Reason Comments Follow-up Encounter Details Date Type Department Care Team (Late st Contact Info) Description 12/18/2023 2:30 PM CDT Office Visit [facility] [address] [place] [address] Denise Davila MD [facility] [place], [place] [phone] Chronic tophaceous gout (Primary Dx); Osteoarthritis of [...] with her primary care provider in the [facility] system. 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 Appointment [facility] [address] [place], [place] [phone] Denise Davila MD [address] [place], [place] [phone] documented as of this encounter Results * CCP Antibody (12/18/2023 3:21 PM CDT) [facility] Anti-CCP Antibody 0.5 0.0 - 6.9 U/mL 12/19/2023 1:00 PM CDT [facility] Anti-CCP Antibody Interpretation Negative Negative 12/19/2023 1:00 PM CDT [facility] Blood Venipuncture / Unknown 12/18/2023 3:21 PM CDT 12/18/2023 3:21 PM CDT Narrative [facility] - 12/19/2023 1:00 PM CDT This result was obtained with the [employer] 250. Quantitative results cannot be directly compared to other manufacturers' methods. Denise Davila MD LAB_1 [facility] [address] [address], [facility] * Rheumatoid Factor, Quant (12/18/2023 3:21 PM CDT) [facility] Rheumatoid Factor, Quantitative <15 <=30 IU/mL 12/18/2023 9:03 PM CDT [facility] Blood Venipuncture / Unknown 12/18/2023 3:21 PM CDT 12/18/2023 3:21 PM CDT Denise Davila MD LAB_1 Performing Organization Address [facility]/ZIP Co de Phone Number [facility] [address] [place], [place] [phone] [place] [address] * Sedimentation Rate (ESR) (12/18/2023 3:21 PM CDT) Sedimentation Rate 12 0 - 20 mm/hr 12/18/2023 3:55 PM CDT [facility] Blood Venipuncture / Unknown 12/18/2023 3:21 PM CDT 12/18/2023 3:21 PM CDT Denise Davila MD LAB_1 Performing Organization Address [facility] Co de Phone Number [facility] [address] [place] [phone] * (ABNORMAL) C-Reactive Protein (12/18/2023 3:21 PM CDT) Pathologist [facility] C-Reactive Protein 1.4(H) 0.0 - 0.5 mg/dL 12/18/2023 5:10 PM CDT [facility] Blood Venipuncture / Unknown 12/18/2023 3:21 PM CDT 12/18/2023 3:21 PM CDT Denise Davila MD LAB_1 Performing Organization Address [facility] de Phone Number [facility] [address] [place] [address] * (ABNORMAL) Protein ELP (Serum) (12/18/2023 3:21 PM CDT) Total Protein 6.9 6.4 - 8.3 g/dL 12/20/2023 10:36 AM CDT [facility] Albumin 4.3 3.4 - 4.8 g/dL 12/20/2023 10:36 AM CDT [facility] Alpha 1 0.4 0.2 - 0.5 g/dL 12/20/2023 10:36 AM CDT [facility] Alpha 2 0.9 0.5 - 1.1 g/dL 12/20/2023 10:36 AM CDT [facility] Beta 0.7 0.6 - 1.1 g/dL 12/20/2023 10:36 AM CDT [facility] Gamma 0.6(L) 0.7 - 1.6 g/dL 12/20/2023 10:36 AM CDT [facility] Monoclonal Vahid 0.0 <=0.0 g/dL 12/20/2023 10:36 AM T [facility] Interpretation Borderline hypogammaglobuli nemia. Consider urine immunofixation to rule out Bence Orozco proteinuria. 12/20/2023 10:36 AM [facility] Signed Out By [facility] 12/20/2023 10:36 AM T [facility] Blood Venipuncture / Unknown 12/18/2023 3:21 PM CDT 12/18/2023 3:21 PM CDT Denise Davila MD LAB_1 Performing Organization Address City/State/[facility] Co de Phone Number [facility] [address] [place] [address] documented in this encounter Visit Diagnoses Diagnosis Chronic tophaceous gout- Primary Chronic gouty arthropathy with tophus (tophi) Osteoarthritis of multiple joints, unspecified osteoarthritis type Arthralgia, unspecified joint documented in this encounter Care Teams Hand Ii Cutter Relationship Specialty Start Date End Date Clinician, Not Found, [place] [address] PCP - General 03/01/18 documented as of this encounter
--- OUTSIDE RECORDS SUMMARY | 2024-02-08 12:31 | XMS_ITS | Encounter Summary ---
Author Organization [employer] Address [address], [place] [address] Care Team Providers Care Fighter Pilot Name Role Phone Clinician, Not Found MD Primary Care Provider Un available Reason for Visit * Reason Comments PHONE CALL TO PATIENT Encounter Details Date Type Department Care Team (Late st Contact Info) Description 12/19/2023 Telephone [place] [phone] Rhe[facility] [place], [place] [phone] Denise Davila MD [facility] [place], [place] [phone] PHONE CALL TO PATIENT Social History Tobacco [...] Sharita Henao - 12/19/2023 2:22 PM CDT [facility] records received and placed in your inbox in [employer]. * Suri Stovall RN - 12/19/2023 10:24 AM CDT Spoke to patient, relaying provider's message below. Patient states that she notified the clinic yesterday to have results faxed over to us but she will reach out to them again today. * Denise Davila MD - 12/19/2023 9:59 AM CDT Please call to remind her to have outside records (from [facility] system) and lab results faxed to me to review documented in this encounter Plan of Treatment Upcoming Encounters Date Type Department Care Team (Late st Contact Info) Description 02/26/2024 11:00 AM CDT Appointment [facility] [address] [place] [address] Denise Davila MD [address] [place] [address] 04/25/2024 12:00 PM CDT Appointment [facility] [address] [place] [address] Denise Davila MD [address] [place] [address] 06/24/2024 12:00 PM HAT BODY SORTER Appointment [facility] [address] [place] [address] Denise Davila MD [address] [place] [address] documented as of this encounter Visit Diagnoses Not on filedocumented in this encounter Care Teams Fighter Pilot Relationship Specialty Start Date End Date Clinician, Not Found, [place] [address] PCP - General 03/01/18 documented as of this encounter
--- OUTSIDE RECORDS SUMMARY | 2024-02-08 12:31 | XMS_ITS | Clinical Summary ---
Author Organization [employer] Address [place], [place] [address] Care Team Providers Care Assistant Associate Full Professor Name Role Phone Tamera Jimenez MD Primary [...] right foot with fat layer exposed () [phone] Squared Toe Post OP Shoe, Small 1 [...] Description 01/24/2024 12:43 PM CDT Anesthesia Event [facility] [address] [place] [address] Dimitri Stahl MD Westen, Megan Joy, MD 01/24/2024 9:47 AM CDT - 01/28/2024 2:25 PM CDT Hospital Encounter [facility] [address] [place] [address] Jeanne Torres MD [facility], [facility] Hospitalists Of Lisa, MD Jhon Heredia, HAN Sharp, MD Tanisha Rowley Hani, MBBS Taylor, Phillip Norman, MD Mickley, Anayeli Mayberry CRNA Acute systolic congestive heart failure (HC) (Primary Dx); Mitral valve stenosis, unspecified etiology; 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); Left atrial thrombus Discharge Disposition: Home Self Care 01/24/2024 Travel 01/23/2024 Telephone [facility] [address] [place] [address] Jeanne Torres MD Instruction 01/23/2024 Telephone [facility] [address] [place] [address] Jeanne Torres MD Appointment (Cardioversion) 01/17/2024 11:00 AM CDT Office Visit [address] [address] Jeanne Torres MD 12/28/2023 9:00 AM CDT Ancillary Procedure [address] [address] 12/12/2023 11:30 AM CDT Office Visit [facility] [address] [place] [address] Toney Winchester DPM Ulcer (Follow up-right foot) 12/12/2023 Travel 11/28/2023 1:00 PM CDT Office Visit [facility] [address] [place] [address] Toney Winchester DPM Ulcer (Follow up-right foot) 11/28/2023 Travel 11/14/2023 2:45 PM CDT Office Visit [facility] [address] [place] [address] Toney Winchester DPM Follow Up (Right ulcer [...] Info) Description 02/18/2024 1:45 PM CDT Appointment [facility] [address] [place] [address] 02/18/2024 2:00 PM CDT Appointment [facility] [address] [place] [address] Health Maintenance Due Date Last Done Comments [...] 09/24/2019, 03/26/2009 Medical Devices Implanted Type Area Speech Assistant Device Identifier Shelf Expiration Date Model / Serial / Lot Simplex P Bone Cement - Half Dose Implanted:Qty: 2 on 10/18/2021 by Kevin Hogue MD at [facility] Left: Knee [employer] 07/12/2023 / [id number] / [id number] Triathlon Femoral Posterior Augment Implanted:Qty: 1 on 10/18/2021 by Kevin Hogue MD at [facility] Left: Knee [employer] 06/01/2025 / [id number]-A-400 / [id number] Simplex P Bone Cement Full Dose Implanted:Qty: 2 on 10/18/2021 by Kevin Hogue MD at [facility] Left: Knee [employer] 09/12/2023 / [id number] / [id number] Triathlon Fluted Stem - Tibia Implanted:Qty: 1 on 10/18/2021 by Kevin Hogue MD at [facility] Left: Knee [employer] 10/09/2025 / [id number] / [id number] Triathlon Tritanium Tibial Symmetric Cone Augment Implanted:Qty: 1 on 10/18/2021 by Kevin Hogue MD at [facility] Left: Knee [employer] 05/04/2026 / [id number]-130 / [id number] Triathlon Total Knee [place] Tibial Baseplate Implanted:Qty: 1 on 10/18/2021 by Kevin Hogue MD at [facility] Left: Knee [employer] 12/19/2025 / [id number] / [id number] Triathlon Fluted Stem - Femur Implanted:Qty: 1 on 10/18/2021 by Kevin Hogue MD at [facility] Left: Knee [employer] 06/15/2025 / [id number] / [id number] Triathlon Total Stabilizer Femoral Component Implanted:Qty: 1 on 10/18/2021 by Kevin Hogue MD at [facility] Left: Knee [employer] 01/16/2026 / [id number] / [id number] Triathlon X3 Total Stablizer+ Tibial Insert Implanted:Qty: 1 on 10/18/2021 by Kevin Hogue MD at [facility] Left: Knee [employer] 08/31/2026 / [id number]-G-[id number] -[id number] / [id number] Triathlon Femoral Posterior Augment Implanted:Qty: 1 on 10/18/2021 by Kevin Hogue MD at [facility] Left: Knee [employer] 09/05/2025 / [id number]-A-[id number] [...] PLATELET COUNT (01/28/2024 5:39 AM CDT) Pathologist [facility] PLATELET COUNT 151 140 - 440 thou/cu mm 01/28/2024 6:47 AM CDT [facility] MPV 13.3(H) 6.5 - 11.0 fL 01/28/2024 6:47 AM CDT [facility] Blood BLOOD SPECIMEN / Unknown Venipuncture / Unknown 01/28/2024 5:39 AM CDT 01/28/2024 6:38 AM CDT Alena Amaya NP HEMATOLOGY Performing Organization Address [facility] Co de Phone Number [facility] [address] [place] [address], [place] * POTASSIUM (01/28/2024 5:39 AM CDT) Only the most recent of2 resultswithin the time period is included. Pathologist [facility] POTASSIUM 3.7 3.5 - 5.1 mmol/L 01/28/2024 7:59 AM CDT [facility] Blood BLOOD SPECIMEN / Unknown Venipuncture / Unknown 01/28/2024 5:39 AM CDT 01/28/2024 6:38 AM CDT Anais SHORT CHEMISTRY Performing Organization Address City/[facility] Co de Phone Number [facility] [address] [place] [address], [place] * (ABNORMAL) CREATININE (01/28/2024 5:39 AM CDT) Only the most recent of3 resultswithin the time period is included. Pathologist [facility] eGFR 34(L) >90 mL/min/1.7 3m2 01/28/2024 7:59 AM CDT [facility] Comment:As of 2021, eG FR is calculated by the CKD-EPI creatinine equation without race adjustment. ??eGFR can be influenced by muscle mass, exercise, and diet. ??The reported eGFR is an estimation only and is only applicable if the renal function is stable. CREATININE 1.51(H) 0.50 - 0.90 mg/dL 01/28/2024 7:59 AM CDT [facility] Blood BLOOD SPECIMEN / Unknown Venipuncture / Unknown 01/28/2024 5:39 AM CDT 01/28/2024 6:38 AM CDT Anais SHORT CHEMISTRY Performing Organization Address [facility]/ZIP Co de Phone Number [facility] [address] [place] [phone], * (ABNORMAL) PROTIME-INR (01/28/2024 5:39 AM CDT) Only the most recent of5 resultswithin the time period is included. INR 1.6(H) <1.3 01/28/2024 7:10 AM CDT [facility] PROTIME 17.3(H) 10.3 - 12.3 sec 01/28/2024 7:10 AM CDT [facility] Blood BLOOD SPECIMEN / Unknown Venipuncture / Unknown 01/28/2024 5:39 AM CDT 01/28/2024 6:38 AM CDT Narrative [facility] - 01/28/2024 7:10 AM CDT [...] Yrn Gleason MD HEMATOLOGY Performing Organization Address City/[facility]/ZIP Co de Phone Number [facility] [address] [address], * MAGNESIUM (01/28/2024 5:39 AM CDT) Only the most recent of3 resultswithin the time period is included. MAGNESIUM 1.8 1.6 - 2.4 mg/dL 01/28/2024 10:02 AM CDT [facility] Blood BLOOD SPECIMEN / Unknown Venipuncture / Unknown 01/28/2024 5:39 AM CDT 01/28/2024 6:38 AM CDT Anais SHORT CHEMISTRY [facility] [address] [address], * SCAN-CARDIAC STRIP (01/27/2024 9:10 PM CDT) [...] CDT ECHOCARDIOGRAM ABIMBOLA SAMUELS ? Accession#: ?? [id number] : ?1940 83 years Study Date: ?? 01/25/2024 11:00:05 AM Gender: F ?BP: ? 110/94 mmHg Height: 162.00 cm ?BSA: ?1.73 m? ? ? Weight: 68.00 kg ? Tech: ? MH ? Referring MD: JEANNE TORRES Site: ? [facility] Reading Location: [facility] Patient Location: Inpatient. Procedure: Limited Echo w/ [...] . This study was interpreted by an [facility] accredited facility. ??Final ?? Procedure Note Chandrakant Rain MD - 01/25/2024 ECHOCARDIOGRAM ABIMBOLA SAMUELS : 1940 83 years Study Date: 01/25/2024 11:00:05 AM Gender: F BP: 110/94 mmHg Height: 162.00 cm BSA: 1.73 m? ? ? Weight: 68.00 kg Tech: Referring MD: JEANNE TORRES Site: [facility] Reading Location: [facility] Patient Location: Inpatient. Procedure: Limited Echo w/ [...] . This study was interpreted by an [facility] accredited facility. Final Jeanne Torres MD ECHO ORD * SCAN-CARDIAC STRIP (01/25/2024 8:42 AM CDT) Scanner OTHER * LIPID PANEL W REFLEX MEASURED LDL (01/25/2024 5:56 AM CDT) CHOLESTEROL,TOTAL 174 100 - 199 mg/dL 01/25/2024 11:36 AM CDT [facility] Comment: Cholesterol, Total Reference Ranges Desirable <200 mg/dL Borderline 200-239 mg/dL High >=240 mg/dL TRIGLYCERIDES 114 <150 mg/dL 01/25/2024 11:36 AM CDT [facility] HDL CHOLESTEROL 58 >40 mg/dL 11:36 AM CDT [facility] NON-HDL CHOLESTEROL 116 <145 mg/dl 01/25/2024 11:36 AM CDT [facility] CHOL/HDL RATIO 3.00 <4.50 01/25/2024 11:36 AM CDT [facility] LDL CHOLESTEROL 93 <=130 mg/dL 01/25/2024 11:36 AM CDT [facility] VLDL CHOLESTEROL 23 <=30 mg/dL 01/25/2024 11:36 AM CDT [facility] PROVIDER ORDERED STATUS RANDOM 01/25/2024 11:36 AM CDT [facility] Blood BLOOD SPECIMEN / Unknown Venipuncture / Unknown 01/25/2024 5:56 AM CDT 01/25/2024 6:13 AM CDT Akosua Blanco NP CHEMISTRY [facility] [address] [place] [address], * (ABNORMAL) BASIC METABOLIC PANEL (01/25/2024 5:56 AM CDT) Only the most recent of2 resultswithin the time period is included. SODIUM 144 136 - 145 mmol/L 01/25/2024 6:38 AM T [facility] POTASSIUM 4.2 3.5 - 5.1 mmol/L 01/25/2024 6:38 AM T [facility] CHLORIDE 105 98 - 107 mmol/L 01/25/2024 6:38 AM [facility] CO2,TOTAL 26 22 - 29 mmol/L 01/25/2024 6:38 AM T [facility] ANION GAP 13 5 - 18 01/25/2024 6:38 AM T [facility] GLUCOSE 84 70 - 99 mg/dL 01/25/2024 6:38 AM T [facility] CALCIUM 9.7 8.8 - 10.2 mg/dL 01/25/2024 6:38 AM [facility] BUN 37(H) 8 - 23 mg/dL 01/25/2024 6:38 AM [facility] CREATININE 1.40(H) 0.50 - 0.90 mg/dL 01/25/2024 6:38 AM [facility] BUN/CREAT RATIO 26(H) 10 - 20 6:38 AM [facility] eGFR 37(L) >90 mL/min/1.7 3m2 01/25/2024 6:38 AM [facility] Comment:As of 2021, eG [...] 01/25/2024 6:13 AM CDT Anais SHORT CHEMISTRY [facility] [address] * SCAN-CARDIAC STRIP (01/24/2024 8:08 PM CDT) Scanner OTHER * SCAN-CARDIAC STRIP (01/24/2024 6:16 PM CDT) Scanner OTHER * ECHO RAMEZ WO CONTRAST W COLOR W LTD DOPPLER (01/24/2024 1:01 PM CDT) EJECTION FRACTION 60 - 65% Anatomical Region Laterality Modality Ultrasound 01/24/2024 12:2 7 PM CDT Narrative 01/24/2024 1:26 PM CDT TRANSESOPHAGEAL ECHOCARDIOGRAM ABIMBOLA SAMUELS ? Accession#: ?? [id number] : ?1940 83 years Study Date: ?? 01/24/2024 12:27:40 PM Gender: F ?BP: ? 132/83 mmHg Height: 162.00 cm ?BSA: ?1.76 m? ? ? Weight: 71.00 kg ? Tech: ? KBA ? Referring MD: ALENA AMAYA Site: ? [facility] Reading Location: [facility] Patient Location: [...] . This study was interpreted by an [facility] accredited facility. ??Final ?? Procedure Note Juanito Martinez MD - 01/24/2024 TRANSESOPHAGEAL ECHOCARDIOGRAM ABIMBOLA SAMUELS : 1940 83 years Study Date: 01/24/2024 12:27:40 PM Gender: F BP: 132/83 mmHg Height: 162.00 cm BSA: 1.76 m? ? ? Weight: 71.00 kg Tech: CESAR Referring MD: ALENA AMAYA Site: [facility] Reading Location: [facility] Patient Location: [...] . This study was interpreted by an [facility] accredited facility. Final Alena Amaya TEACHER ASSISTANT ECHO ORD * TSH (01/24/2024 11:05 AM CDT) Pathologist [facility] TSH 1.42 0.27 - 4.20 uIU/mL 01/24/2024 6:11 PM CDT [facility] Blood BLOOD SPECIMEN / Unknown Butterfly / Unknown 01/24/2024 11:05 AM CDT 01/24/2024 11:13 AM CDT Narrative [facility] - 01/24/2024 6:11 PM CDT In Adults, TSH values between 5.00 and 10.00 uIU/ml do not necessarily indicate the presence of Hypothyroidism. Correlation with clinical findings such as presence of goiter and/or Thyroperoxidase (TPO) Antibody may be helpful. For more information please refer to SHABANA 2004; 291: 228-238. Anais SHORT CHEMISTRY Performing Organization Address City/[facility]/ZIP Co de Phone Number [facility] [address] [place] [address], [place] * POTASSIUM,ISTAT (01/24/2024 10:34 AM CDT) Pathologist [facility] POTASSIUM, POCT 4.3 3.5 - 5.0 mmol/L 01/24/2024 10:40 AM CDT [facility] Blood BLOOD SPECIMEN / Unknown 01/24/2024 10:34 AM CDT 01/24/2024 10:40 AM CDT Jeanne Torres MD CHEMISTRY [facility] [address] [place] [address], [place] * EKG - 12 Lead (01/24/2024 10:11 AM CDT) Pathologist [facility] Interpretation Atrial fibrillation with rapid ventricular response [...] NOW QTc 500 ms BEYOND NOW P [place] degrees BEYOND NOW R [place] 42 degrees BEYOND NOW T [place] -24 degrees BEYOND NOW 01/24/2024 10:1 1 AM CDT 01/24/2024 2:17 PM CDT Narrative [facility] - 01/24/2024 2:17 PM CDT Test Indication: PRECARDIO Alena Michelle Amaya TEACHER ASSISTANT EKG ORD BEYOND NOW [place], [place] * ECHO TTE COMPLETE WO CONTRAST (12/28/2023 9:58 AM CDT) AORTIC VALVE MEAN PG 4 mmHg PEAK TR VELOCITY 3.2 m/s LVEDD 3.5 cm EJECTION FRACTION 55 - 60% Anatomical Region Laterality Modality Ultrasound 12/28/2023 9:13 AM CDT Narrative 12/28/2023 10:52 AM CDT ECHOCARDIOGRAM ABIMBOLA SAMUELS ? Accession#: ?? [id number] : ?1940 83 years Study Date: ?? 12/28/2023 9:13:23 AM Gender: F ?BP: ? 147/88 mmHg Height: 163.00 cm ?BSA: ?1.71 m? ? ? Weight: 66.00 kg ? Tech: ? MBF ? Referring MD: TAMERA JIMENEZ Site: ? [facility] Reading Location: Mobile [facility] Patient Location: Outpatient. Procedure: 2D, Color Doppler [...] AM. This study was interpreted by an [facility] accredited facility. CC: [facility] ([facility]) [facility]. ??Final (Updated) ?? Procedure Note Chandrakant Tomas MD - 12/28/2023 ECHOCARDIOGRAM ABIMBOLA SAMUELS : 1940 83 years Study Date: 12/28/2023 9:13:23 AM Gender: F BP: 147/88 mmHg Height: 163.00 cm BSA: 1.71 m? ? ? Weight: 66.00 kg Tech: EMETERIO Referring MD: TAMERA JIMENEZ Site: [facility] Reading Location: [facility] Patient Location: Outpatient. Procedure: 2D, Color Doppler [...] interpreted by an [facility] accredited facility. CC: [facility] (med records) [facility]. Final (Updated) Tamera Jimenez MD ECHO ORD from Last 3 Months Advance Directives Documents on File Type Date Recorded Patient Cashier Ticket Selling Expl anation Healthcare Directive 10/20/2021 8:51 AM [...] Preferences, Provider to review later Care Teams Assistant Associate Full Professor Relationship Specialty Start Date End Date Tamera Jimenez MD [address] [place] [address] PCP - General Family Practice 10/24/23
== END 2024-02-07 10:12 | disposition home or self-care (01) ==
LOC: NFLDREF 02-08 12:29
PROVIDERS: PCP Family Medicine; Referring Provider Family Medicine; Visit Provider Family Medicine
DX: N18.9 Chronic kidney disease, unspecified (principal); Z79.01 Long term (current) use of anticoagulants; Z51.81 Encounter for therapeutic drug level monitoring
CPT/HCPCS: 80048; 85610

== ENCOUNTER 2024-02-25 11:38 | Inpatient (IN) | payer MEDICARE, OTHER, SELFPAY ==
[2024-02-25] VITALS (20 sets, daily range): BP systolic 94–112; BP diastolic 59–91; PULSE 92–135; RESP 14–20; TEMP 36.1–36.8; O2SAT 92–100; BMI 24.9; BMI 26.3
--- NOTE | 2024-02-25 12:01 | ED.GENADULT ---
HPI - General Adult General Time Seen by Provider: 12:01 Date Seen: 02/25/24 Chief complaint: Unspecified Complaint, Adult Stated complaint: INR elevated Time Seen by Provider: 02/25/24 12:00 Source: patient, RN notes reviewed and old records reviewed Mode of arrival: ambulatory Limitations: no limitations History of Present Illness HPI narrative: Patient is an 83-year-old female referred in by clinic today with an INR of 14.37. Patient reports she had a fall on Sunday, did have some skin tears in her right forearm. She had an old skin tear along her left wrist that was re-injured. She has some baseline dyspnea on exertion but has had no increased issues with breathing, no shortnessOf breath at rest. She has bruising of her right breast from the fall but states it is not painful. Her wounds are oozing. She has a Tegaderm on the left wrist, can see a little blood underneath there but it is not bleeding through the Tegaderm. She has gauze and bandages wrapping the right forearm, there is no bleeding through this, did not take this dressing down. She is sitting up on the edge of the bed, denies any complaints of abdominal pain. She is wondering if we can treat her anticoagulation being too high and then let her go home. Reviewed with her that we need to check things out, understand that her goal is to go home but we need to make sure she is safe. She really has no complaints of pain or concerns other than the wounds on her right arm continue to bleed. On questioning, patient states she had a thrombus in her heart for which she is anticoagulated for. I did ask her she had atrial fibrillation, she did not seem to be aware of this. Her chart is definite that she had atrial fibrillation, did have a cardioversion on 01/16 at [facility]. Nursing staff did look up her tetanus, it is up-to-date in 2020. She is not noting any bleeding with brushing her teeth, no bleeding from her gums, no GI bleeding noted. Related Data Home Medications ?Medication ?Instructions ?Recorded ?Confirmed allopurinol 100 mg tablet 200 mg PO QDAY 10/02/22 02/25/24 mecobalamin (vitamin B12) 1,000 1,000 mcg PO QDAY 12/26/23 02/25/24 mcg chewable tablet acetaminophen 500 mg capsule 1,000 mg PO QHS PRN 01/31/24 02/25/24 furosemide 20 mg tablet 20 mg PO QAM edema 01/31/24 02/25/24 metoprolol tartrate 100 mg tablet 100 mg PO BID 01/31/24 02/25/24 spironolactone 25 mg tablet 12.5 mg PO DAILY 01/31/24 02/25/24 warfarin 5 mg tablet 5 mg PO DAILY 01/31/24 02/25/24 prednisone 1 mg tablet 2 mg PO DAILY 02/25/24 02/25/24 Previous Rx's ?Medication ?Instructions ?Recorded amlodipine 5 mg tablet 5 mg PO DAILY #90 tabs 02/06/24 atorvastatin 40 mg tablet 40 mg PO .Bedtime #90 tabs 02/06/24 levothyroxine 75 mcg tablet 75 mcg PO DAILY #90 tabs 02/06/24 lisinopril 40 mg tablet 40 mg PO DAILY #90 tabs 02/06/24 omeprazole 20 mg capsule,delayed 20 mg PO DAILY #90 caps 02/06/24 release Allergies Allergy/AdvReac Type Severity Reaction Status Date / Time propoxyphene Allergy Severe Weakness Verified 01/31/24 07:59 Review of Systems Status of ROS: Reports: 6 or more systems reviewed and unremarkable except as noted in History and below [facility] Medical History Weight loss (~11/2022) ?R63.4 - Abnormal weight loss (ICD-10) Elevated CK ?R74.8 - Abnormal levels of other serum enzymes (ICD-10) Shoulder pain, bilateral ?M25.511 - Pain in right shoulder (ICD-10) ?M25.512 - Pain in left shoulder (ICD-10) Polymyalgia rheumatica (11/30/23) ?M35.3 - Polymyalgia rheumatica (ICD-10) Diarrhea (01/07/23) ?R19.7 - Diarrhea, unspecified (ICD-10) Eczema ?L30.9 - Dermatitis, unspecified (ICD-10) GERD (gastroesophageal reflux disease) ?K21.9 - Gastro-esophageal reflux disease without esophagitis (ICD-10) Normal coronary angiogram Rheumatoid arthritis (2008) ?M06.9 - Rheumatoid arthritis, unspecified (ICD-10) Restless legs syndrome ?G25.81 - Restless legs syndrome (ICD-10) Hypothyroidism ?E03.9 - Hypothyroidism, unspecified (ICD-10) Hypertension ?I10 - Essential (primary) hypertension (ICD-10) Hyperlipidemia (03/26/09) ?E78.5 - Hyperlipidemia, unspecified (ICD-10) Edema ?R60.9 - Edema, unspecified (ICD-10) Surgical History Adenomatous colon polyp (03/20/23) ?D12.6 - Benign neoplasm of colon, unspecified (ICD-10) History of endoscopy (03/20/23) ?Z98.890 - Other specified postprocedural states (ICD-10) 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) ?Z96.651 - Presence of right artificial knee joint (ICD-10) History of revision of total knee arthroplasty (~10/19/21) ?Z96.659 - Presence of unspecified artificial knee joint (ICD-10) History of total left knee replacement (1999) ?Z96.652 - Presence of left artificial knee joint (ICD-10) History of total right knee replacement (1994) ?Z96.651 - Presence of right artificial knee joint (ICD-10) H/O hysterectomy with oophorectomy (1972) H/O lumpectomy (1972) ?Z98.890 - Other specified postprocedural states (ICD-10) H/O cataract extraction (~2013) ?Z98.49 - Cataract extraction status, unspecified eye (ICD-10) H/O foot surgery ?Z98.890 - Other specified postprocedural states (ICD-10) History of tonsillectomy (1944) ?Z90.89 - Acquired absence of other organs (ICD-10) History of appendectomy (1956) ?Z90.49 - Acquired absence of other specified parts of digestive tract (ICD-10) Family History Brother Cancer of kidney, Onset Age: 57 Mother Stroke, Onset Age: 87 Father Myocardial infarction Heart disease, Onset Age: 78 Sister Stroke, Onset Age: 85 Cancer of kidney Brother Cancer of kidney, Onset Age: 76 Social History Narrative: , 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, 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 former smoker-quit around 1970 3 alcoholic drinks a week No formal exercise but cleans house uses stairs regularly Smoking Status: Former smoker What tobacco products do you use: cigarettes Smoking quit date/years: >15 years ago Do you use any of these nicotine containing products: None How often do you have a drink containing alcohol: 4 or more times a week Alcohol type: wine How many standard drinks containing alcohol do you have on a typical day: 1 or 2 How often do you have six or more drinks on one occasion: Never AUDIT-C Alcohol total score: 4 Non-prescribed substance use: denies use Caffeine: Yes (coffee, 1 cup/AM) Little interest or pleasure in doing things: not at all Feeling down, depressed, or hopeless: not at all Exam Const: Vital Signs, click to edit/add: Vital Signs - 24 hr 02/25/24 11:44 02/25/24 13:08 02/25/24 13:21 Temperature 97.0 F L Pulse Rate 104 H Pulse Rate [Pulse Oximeter] 92 Respiratory Rate 14 Blood Pressure Blood Pressure [Le ft Upper Arm] 99/66 Pulse Oximetry 97 98 97 Oxygen Delivery Me od Room Air 02/25/24 13:29 02/25/24 13:30 02/25/24 13:31 Temperature Pulse Rate 124 H 122 H 135 H Pulse Rate [Pulse Oximeter] Respiratory Rate Blood Pressure 99/80 Blood Pressure [Le ft Upper Arm] Pulse Oximetry 92 95 95 Oxygen Delivery Me thod 02/25/24 13:32 02/25/24 13:33 02/25/24 13:45 Temperature Pulse Rate 123 H 104 H 121 H Pulse Rate [Pulse Oximeter] Respiratory Rate Blood Pressure 96/73 Blood Pressure [Le ft Upper Arm] Pulse Oximetry 100 98 100 Oxygen Delivery Me thod 02/25/24 14:02 02/25/24 14:06 02/25/24 14:19 Temperature Pulse Rate 123 H 113 H Pulse Rate [Pulse Oximeter] Respiratory Rate Blood Pressure 94/69 Blood Pressure [Le ft Upper Arm] Pulse Oximetry 92 97 [facility] Delivery [facility] 02/25/24 14:34 07/15/24 14:35 Temperature Pulse Rate 118 H Pulse Rate [Pulse Oximeter] Respiratory Rate Blood Pressure 111/59 L Blood Pressure [Le ft Upper Arm] Pulse Oximetry 96 Oxygen Delivery Me thod Patient is alert, interactive, no apparent distress, sitting up on the edge of the bed in exam room 3 in the ER. Pupils equal round reactive to light, sclera clear, conjugate gaze. Face atraumatic, symmetrical facial function. Patient able to speak in complete sentences. Neck supple, nontender. Lungs are clear, good air entry, no wheezing or crackles, no tachypnea. No posterior chest wall tenderness. Her right breast has ecchymosis, does not go to the Gregorio a or nipple, no nipple drainage noted. She states the breast is not tender. CV sounds borderline fast, irregular but do not hear any significant murmur, would guess that she is in atrial fibrillation based on my exam. Abdomen is soft, nontender, nondistended, no rebound or guarding. She has got some trace lower extremity edema. She has got bandaging around the right forearm, no active bleeding through this. She has a Tegaderm over the left wrist, small pool of blood about maybe dime-size in area underneath the Tegaderm. No extravasation of blood. The bandage is not taking down her right arm. She is moving her arms and legs, was ambulatory in here without any complaints of pain. Documenting provider has reviewed patient's vital signs: yes Course Course ED Course: This patient has a supratherapeutic INR. Will get some basic labs, likely to treat with vitamin K. if she is stable in her hemoglobin, no evidence of significant active bleeding here, oral may be sufficient. She is wanting to go home. It is possible that we may be able to get her home as she is requested. Reviewed with her that we do need to see the labs. will need to review more of her history with this atrial clot, she does not seem to be aware of atrial fibrillation when ask her the question. Her chart is definite that she has had atrial fibrillation. She does report a fall with skin tears, wound has been dressed by clinical staff per report. She no complaints except for some ongoing wound bleeding which is likely explained by the elevated INR. Reevaluation(s) Time of Reevaluation #1: 14:25 Reevaluation #1: Reviewed with patient that she is going to need hospitalization, did review the potassium in the kidney function. She will receive 2.5 mg oral vitamin K, do not want to overcorrect her as she will end potentially needing IV heparin for bridging. Consultations Consultation #1: Confirmed with lab that patient's specimen is not hemolyzed. Her potassium is at 5.8, creatinine is at 2.9. Her potassium on 02/06 was 5.3. She has worsening renal function, acute on chronic renal failure. Recheck INR still pending. Have added on a total CK given she had fall on Sunday. Also added on a liver panel. Will have nursing staff do an EKG. Time: 13:08 Consultation #2: Did review with hospitalist Piper Karimi, as we started going over everything, both of us came to the conclusion that we should discuss with Cardiology. I do wonder if this patient's cardiac function is deteriorating and perhaps as pre renal azotemia due to cardiogenic issues. Her potassium is currently being treated with a L of IV fluids, have updated nursing staff to watch her closely regarding fluid overload. She is been placed on cardiac monitoring as well. We are paging out the head men's tennis coach at [place]. Subsequent discussion with the head men's tennis coach reveals that he believe she can stay here. He does agree with hydration with fluids. If there are any complications or further concerns, they will be happy to talk to us again. He states her last true echo in January showed low normal EF. Time: 13:29 Consultation #3: Have reviewed with the hospitalist Dr. Mccormick, he accepts care. upon review of her case with him, saw her proBNP is in the 9000 range. Will also add on a portable chest x-ray on this patient the clinically she is stable, certainly could have some underlying CHF with her history. Time: 15:01 Vital Signs Vital signs: Initial Vital Signs Temperature 97.0 F L 02/25/24 11:44 Temperature Source Temporal Artery Scan 02/25/24 11:44 Pulse Rate 92 02/25/24 11:44 Pulse Rhythm Irregular 02/25/24 11:44 Respiratory Rate 14 02/25/24 11:44 Blood Pressure 99/66 02/25/24 11:44 Blood Pressure Mean 77 02/25/24 11:44 Blood Pressure Position Sitting 02/25/24 11:44 Pulse Oximetry 97 02/25/24 11:44 Oxygen Delivery Method Room Air 02/25/24 11:44 Vital Signs Temperature 97.0 F L 02/25/24 11:44 Pulse Rate 92 02/25/24 11:44 Respiratory Rate 14 02/25/24 11:44 Blood Pressure 99/66 02/25/24 11:44 Pulse Oximetry 97 02/25/24 11:44 Oxygen Delivery Method Room Air 02/25/24 11:44 Temperature 97.0 F L 02/25/24 11:44 Pulse Rate 118 H 02/25/24 14:35 Respiratory Rate 14 02/25/24 11:44 Blood Pressure 111/59 L 02/25/24 14:34 Pulse Oximetry 96 02/25/24 14:35 Oxygen Delivery Method Room Air 02/25/24 11:44 Medications Administered Medications: Discontinued Medications Generic Name Dose Route Start Last Admin Trade Name Freq PRN Reason Stop Dose Admin Sodium Chloride 1,000 mls @ 500 mls/hr 02/25/24 13:17 02/25/24 13:33 0.9 % Sodium Chloride 1000 Ml IV 02/25/24 15:16 500 mls/hr .Q2H ETHAN Administration Phytonadione 2.5 mg 02/25/24 14:02 02/25/24 14:30 Phytonadione Oral Soln 10 Mg/Ml PO 02/25/24 14:03 2.5 mg ONCE ONE Administration Medical Decision Making Medical Records Medical records reviewed: Yes I reviewed the patient's medical records Medical records narrative: Patient looks to have been diagnosed with atrial fibrillation in November of 2023, Eliquis was initiated. She did follow up for cardioversion in on January 23, on RAMEZ she had a left atrial thrombus, thus no cardioversion done. She had a moderate really reduced LV dysfunction. She was switched from Eliquis to Coumadin as he also found mitral valve disease. When she followed up on February, left atrial thrombus appeared to have increased in size. Creatinine in her epic chart on January 27 was 1.51. Lab Data Labs: Lab Results 02/25/24 02/25/24 02/25/24 Range/Units 12:20 13:08 13:46 WBC 14.24 H (4.50-11.00) K/uL RBC 3.67 L (4.00-5.20) m/uL Hgb 12.1 (12.0-16.0) gm/dL Hct 38.3 (33.0-51.0) % MCV 104 H (80-100) fL MCH 33 (26-34) pg MCHC 32 (32-36) gm/dL RDW Coeff of Lindsey 15.4 (11.5-15.5) % Plt Count 154 (140-440) K/uL Neut % (Auto) 86.2 H (42.0-72.0) % Lymph % (Auto) 9.8 L (20-44) % [place] % (Auto) 3.2 (0.0-11.0) % Eos % (Auto) 0.1 (0.0-7.0) % Baso % (Auto) 0.1 (0.0-3.0) % Neut # (Auto) 12.30 H (1.7-7.0) K/uL Lymph # (Auto) 1.40 (0.90-2.90) K/uL [place] # (Auto) 0.50 (0.00-0.90) K/UL Eos # (Auto) 0.00 (0.00-0.50) K/uL Baso # (Auto) 0.00 (0.00-0.30) K/uL Abs Immat Gran (auto) 0.10 (0.00-0.30) K/uL Imm/Tot Granulo (auto) 0.6 % INR (0.91-1.10) Sodium 133 L (135-149) mmol/L Potassium 5.8 H (3.6-5.1) mmol/L Chloride 105 (96-114) mmol/L Carbon Dioxide 18 L (20-32) mmol/L Anion Gap 10 (7-15) mEq/L BUN 101 H (7-30) mg/dL Creatinine 2.9 H (0.5-1.5) mg/dL Estimated Creat Clear 12.69 Estimated GFR 16 ml/min Glucose 115 (60-115) mg/dL Lactate (0.5-1.9) mmol/L Calcium 9.5 (8.4-10.6) mg/dL Total Bilirubin 0.8 (0.1-1.5) mg/dL Direct Bilirubin 0.5 (0.0-0.5) mg/dL AST 22 (12-35) U/L ALT 33 (4-35) U/L Alkaline Phosphatase 108 (40-150) U/L Total Creatine Kinase 53 (41-117) U/L Troponin I < 0.01 L (0.01-0.04) ng/mL NT-Pro-B Natriuret Pep 9790 pg/mL Total Protein 6.9 (6.0-8.3) g/dL Albumin 4.3 (3.3-5.0) g/dL Urine Color (Yellow) Urine Appearance (Clear) Urine pH (5.0-8.5) Ur Specific [place] (1.000-1.030) Urine Protein (Negative) Urine Glucose (UA) (Negative) Urine Ketones (Negative) Urine Blood (Negative) Urine Nitrite (Negative) Urine Bilirubin (Negative) Urine Urobilinogen (0.2-1.0) Ur Leukocyte Esterase (Negative) Urine RBC (0-2) Urine WBC (0-5) Ur Squamous Epith Cells (None-Few) Urine Bacteria (None) Lab Acknowledgement Test Added Test Added 02/25/24 02/25/24 02/25/24 Range/Units 13:58 14:20 14:34 WBC (4.50-11.00) K/uL RBC (4.00-5.20) m/uL Hgb (12.0-16.0) gm/dL Hct (33.0-51.0) % MCV (80-100) fL MCH (26-34) pg MCHC (32-36) gm/dL RDW Coeff of Lindsey (11.5-15.5) % Plt Count (140-440) K/uL Neut % (Auto) (42.0-72.0) % Lymph % (Auto) (20-44) % [place] % (Auto) (0.0-11.0) % Eos % (Auto) (0.0-7.0) % Baso % (Auto) (0.0-3.0) % Neut # (Auto) (1.7-7.0) K/uL Lymph # (Auto) (0.90-2.90) K/uL [place] # (Auto) (0.00-0.90) K/UL Eos # (Auto) (0.00-0.50) K/uL Baso # (Auto) (0.00-0.30) K/uL Abs Immat Gran (auto) (0.00-0.30) K/uL Imm/Tot Granulo (auto) % INR (0.91-1.10) Sodium (135-149) mmol/L Potassium (3.6-5.1) mmol/L Chloride (96-114) mmol/L Carbon Dioxide (20-32) mmol/L Anion Gap (7-15) mEq/L BUN (7-30) mg/dL Creatinine (0.5-1.5) mg/dL Estimated Creat Clear Estimated GFR ml/min Glucose (60-115) mg/dL Lactate 1.6 (0.5-1.9) mmol/L Calcium (8.4-10.6) mg/dL Total Bilirubin (0.1-1.5) mg/dL Direct Bilirubin (0.0-0.5) mg/dL AST (12-35) U/L ALT (4-35) U/L Alkaline Phosphatase (40-150) U/L Total Creatine Kinase (41-117) U/L Troponin I (0.01-0.04) ng/mL NT-Pro-B Natriuret Pep pg/mL Total Protein (6.0-8.3) g/dL Albumin (3.3-5.0) g/dL Urine Color Yellow (Yellow) Urine Appearance Clear (Clear) Urine pH 5.5 (5.0-8.5) Ur Specific [place] 1.010 (1.000-1.030) Urine Protein Negative (Negative) Urine Glucose (UA) Negative (Negative) Urine Ketones Negative (Negative) Urine Blood Negative (Negative) Urine Nitrite Negative (Negative) Urine Bilirubin Negative (Negative) Urine Urobilinogen 0.2 (0.2-1.0) Ur Leukocyte Esterase Negative (Negative) Urine RBC 2-5 A (0-2) Urine WBC 0-2 (0-5) Ur Squamous Epith Cells Many A (None-Few) Urine Bacteria Few A (None) Lab Acknowledgement New Spec Needed ECG Data Attestation: I personally reviewed and interpreted this ECG as follows: ( Atrial fibrillation with rapid ventricular response, 102 beats per minute. PVC seen. Right bundle branch block, likely developing intra conduction delay, inferolateral flipped T-waves but maybe result of the intra conduction delay that I am seeing.) Prior ECG tracings: available for review ( Looks to be similar to the EKG from 01/23/2020.) Discharge Plan Discharge Clinical Impression: Supratherapeutic INR, Acute hyperkalemia Acute on chronic kidney failure Qualifiers: Acute renal failure type: unspecified Chronic kidney disease stage: unspecified stage Qualified Code(s): N17.9 - Acute kidney failure, unspecified Patient Disposition: Admitted As Observation
[2024-02-25 12:34] LABS: Basophils Percent Auto 0.1 % (0.0-3.0); Eosinophils Percent Auto 0.1 % (0.0-7.0); Hematocrit 38.3 % (33.0-51.0); Hemoglobin* 12.1 gm/dL (12.0-16.0); Immature Granulocytes Pct Auto 0.6 %; Lymphocytes Percent Auto 9.8 % (20-44); Mean Corpuscular HGB Conc 32 gm/dL (32-36); Mean Corpuscular Hemoglobin 33 pg (26-34); Mean Corpuscular Volume 104 fL (80-100); Monocytes Percent Auto 3.2 % (0.0-11.0); Neutrophils Percent Auto 86.2 % (42.0-72.0); Platelet Count* 154 K/uL (140-440); RDW Coefficient of Variation % 15.4 % (11.5-15.5); Red Blood Count 3.67 m/uL (4.00-5.20); White Blood Count* 14.24 K/uL (4.50-11.00)
[2024-02-25 12:39] LABS: Slide Review Reflex No
[2024-02-25 12:46] LABS: Chloride* 105 mmol/L (96-114); Potassium* 5.8 mmol/L (3.6-5.1); Sodium* 133 mmol/L (135-149)
[2024-02-25 12:49] LABS: Anion Gap 10 mEq/L (7-15); Blood Urea Nitrogen* 101 mg/dL (7-30); Carbon Dioxide* 18 mmol/L (20-32); Creatinine* 2.9 mg/dL (0.5-1.5); Est. Creatinine Clearance* 12.69; Estimated Glomerular Filt Rate 16 ml/min; Glucose* 115 mg/dL (60-115)
[2024-02-25 12:50] LABS: Calcium* 9.5 mg/dL (8.4-10.6)
[2024-02-25 13:20] LABS: Albumin* 4.3 g/dL (3.3-5.0)
[2024-02-25 13:23] LABS: Aspartate Amino Transferase* 22 U/L (12-35); Bilirubin Direct* 0.5 mg/dL (0.0-0.5); Bilirubin Total* 0.8 mg/dL (0.1-1.5); Total Protein* 6.9 g/dL (6.0-8.3)
[2024-02-25 13:24] LABS: Alanine Aminotransferase* 33 U/L (4-35); Alkaline Phosphatase* 108 U/L (40-150); Creatine Kinase* 53 U/L (41-117)
[2024-02-25] MEDS: 0.9 % SODIUM CHLORIDE 1000 ml 1,000 ML 500 ML IV (13:33)
[2024-02-25 13:58] LABS: Lab Add On Test New Spec Needed
[2024-02-25 14:11] LABS: NT Pro B Type NatriureticPept* 9790 pg/mL; Troponin I* < 0.01 ng/mL (0.01-0.04)
[2024-02-25 14:29] LABS: Appearance Urine Clear (Clear); Bilirubin Urine Negative (Negative); Blood Urine Negative (Negative); Color Urine Yellow (Yellow); Glucose Urine Negative (Negative); Ketones Urine Negative (Negative); Leukocyte Esterase Urine Negative (Negative); Nitrite Urine Negative (Negative); Protein Urine Negative (Negative); Urobilinogen Urine 0.2 (0.2-1.0); pH Urine 5.5 (5.0-8.5)
[2024-02-25 14:38] LABS: Lactate* 1.6 mmol/L (0.5-1.9)
[2024-02-25 14:40] LABS: Bacteria Urine Few; Squamous Epithelial Cell Urine Many (None-Few); WBC Urine 0-2 (0-5)
--- NOTE | 2024-02-25 15:02 | CRLHL7_ITS ---
For Patients: As a result of the Century Cures Act, medical imaging exams and procedure reports are released immediately into your electronic medical record. You may view this report before your referring provider. If you have questions, please contact your health care provider. INDICATION: CHF. TECHNIQUE: Chest 1 views. COMPARISON: 12/28/2023. FINDINGS: Cardiovasculature and mediastinum: Stable cardiomegaly and mild central vascular congestion suggesting low-grade CHF without overt edema. This could be chronic. Unremarkable mediastinum. Lungs and pleural spaces: Lungs are clear. No sign of infiltrate or mass. No sign of pleural effusion. No pneumothorax. Bones and soft tissues: No significant findings. Dictated by Ender Martinez MD @ 02/25/2024 3:45:46 PM (Electronically Signed)
[2024-02-25] MEDS: allopurinoL 100 MG TABLET 200 MG PO (17:41)
[2024-02-25] MEDS: dilTIAZem 5 MG/ML inj IVP ×2 (17:42→20:28)
--- NOTE | 2024-02-25 19:04 | PC.NURSE ---
shift note: pt to floor via WC from ED @ 1333. Pt a&o x3. pt denies pain. tele monitor in place reading at fib. vss stable. IV patent
[2024-02-25 19:37] LABS: Albumin* 4.3 g/dL (3.3-5.0); Chloride* 107 mmol/L (96-114); Sodium* 134 mmol/L (135-149)
[2024-02-25 19:38] LABS: Potassium* 5.5 mmol/L (3.6-5.1)
[2024-02-25 19:40] LABS: Anion Gap 12 mEq/L (7-15); Carbon Dioxide* 15 mmol/L (20-32); Creatinine* 2.6 mg/dL (0.5-1.5); Est. Creatinine Clearance* 14.16; Estimated Glomerular Filt Rate 18 ml/min
[2024-02-25 19:41] LABS: Blood Urea Nitrogen* 94 mg/dL (7-30); Calcium* 9.3 mg/dL (8.4-10.6); Glucose* 204 mg/dL (60-115); Phosphorus* 4.4 mg/dL (2.5-4.5)
--- NOTE | 2024-02-25 20:03 | PM.IMHP1 ---
Hospitalist- H&P: HPI History of Present Illness Date Seen: 02/25/24 Chief complaint: INR elevated Narrative: Abimbola Samuels is a 83 year old woman is referred to the emergency department today for further assessment after an outpatient clinic INR value of 14.4 was obtained. 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 Previously was anticoagulated with apixaban. On 01/24/2024 she was found to have left atrial thrombus and switched to warfarin anticoagulation. Warfarin dosing has ranged between 2.5 mg daily and 5 mg daily and various combinations thereof with goal of maintaining INR between 2 and 3. On 02/18/2024 INR was 3.1. On recheck today INR was 14.4. She claims not to have changed her medication regimen. It is unclear exactly what regimen she supposed to be on. She tells me she is currently taking warfarin 5 mg once daily. Claims not to have changed her diet or lifestyle in the same interim of time. Has not started any new medications including antibiotics. Has not had any infections. Indicates she was scheduled to have a DC cardioversion again on 02/18/2024 when RAMEZ pre DC cardioversion demonstrated increased size of left atrial thrombus compared to prior study and thus did not proceed with DC cardioversion. Aside from ecchymoses she has on her right breast which is non painful and some minimal bleeding from some recent skin tears she has had no other blood loss. Denies neurologic changes. Has baseline dyspnea with exertion such that after walking about 10 ft she has to rest and catch her breath before she can ambulate beyond that. Denies dyspnea at rest, paroxysmal nocturnal dyspnea, orthopnea. Denies chest, back, neck, or arm heaviness, pressure, tightness, or pain. Denies syncope or near-syncope. Denies nausea vomiting. Although she has some peripheral edema she notes it is much less than what she has had in the past. Acknowledges taking her spironolactone and furosemide daily. Review of Systems Status of ROS: Reports: 6 or more systems reviewed and unremarkable except as noted in History and below [facility] Medical History (Updated 02/25/24 @ 21:03 by Lucian Mccormick MD) Chronic HFrEF (heart failure with reduced ejection fraction) ?I50.22 - Chronic systolic (congestive) heart failure (ICD-10) Cardiomyopathy ?I42.9 - Cardiomyopathy, unspecified (ICD-10) Thrombus of left atrial appendage ?I51.3 - Intracardiac thrombosis, not elsewhere classified (ICD-10) Weight loss (~11/2022) ?R63.4 - Abnormal weight loss (ICD-10) Elevated CK ?R74.8 - Abnormal levels of other serum enzymes (ICD-10) Shoulder pain, bilateral ?M25.511 - Pain in right shoulder (ICD-10) ?M25.512 - Pain in left shoulder (ICD-10) Polymyalgia rheumatica (11/30/23) ?M35.3 - Polymyalgia rheumatica (ICD-10) Diarrhea (01/07/23) ?R19.7 - Diarrhea, unspecified (ICD-10) Eczema ?L30.9 - Dermatitis, unspecified (ICD-10) GERD (gastroesophageal reflux disease) ?K21.9 - Gastro-esophageal reflux disease without esophagitis (ICD-10) Normal coronary angiogram Rheumatoid arthritis (2008) ?M06.9 - Rheumatoid arthritis, unspecified (ICD-10) Restless legs syndrome ?G25.81 - Restless legs syndrome (ICD-10) Hypothyroidism ?E03.9 - Hypothyroidism, unspecified (ICD-10) Hypertension ?I10 - Essential (primary) hypertension (ICD-10) Hyperlipidemia (03/26/09) ?E78.5 - Hyperlipidemia, unspecified (ICD-10) Edema ?R60.9 - Edema, unspecified (ICD-10) Surgical History Adenomatous colon polyp (03/20/23) ?D12.6 - Benign neoplasm of colon, unspecified (ICD-10) History of endoscopy (03/20/23) ?Z98.890 - Other specified postprocedural states (ICD-10) 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) ?Z96.651 - Presence of right artificial knee joint (ICD-10) History of revision of total knee arthroplasty (~10/19/21) ?Z96.659 - Presence of unspecified artificial knee joint (ICD-10) History of total left knee replacement (1999) ?Z96.652 - Presence of left artificial knee joint (ICD-10) History of total right knee replacement (1994) ?Z96.651 - Presence of right artificial knee joint (ICD-10) H/O hysterectomy with oophorectomy (1972) H/O lumpectomy (1972) ?Z98.890 - Other specified postprocedural states (ICD-10) H/O cataract extraction (~2013) ?Z98.49 - Cataract extraction status, unspecified eye (ICD-10) H/O foot surgery ?Z98.890 - Other specified postprocedural states (ICD-10) History of tonsillectomy (1944) ?Z90.89 - Acquired absence of other organs (ICD-10) History of appendectomy (1956) ?Z90.49 - Acquired absence of other specified parts of digestive tract (ICD-10) Family History Brother Cancer of kidney, Onset Age: 57 Mother Stroke, Onset Age: 87 Father Myocardial infarction Heart disease, Onset Age: 78 Sister Stroke, Onset Age: 85 Cancer of kidney Brother Cancer of kidney, Onset Age: 76 Social History Narrative: , 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, 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 former smoker-quit around 1969 3 alcoholic drinks a week No formal exercise but cleans house uses stairs regularly What is your current living situation?: I presently have a place to live Problems where you live: no known problems Problems where you live details: none In the past 12 months, utilities in danger of being shut off: no In past 12 months, lack of transportation kept you from medical appts, meetings, work, or getting things needed for daily living: no In the past 12 mos, have been you worried that your food would run out before you had money to buy more?: never true In the past 12 mos, the food you bought just didn't last and you didn't have money to buy more?: never true Highest level of school completed/degree received: Bachelor's degree Smoking Status: Former smoker What tobacco products do you use: cigarettes Smoking quit date/years: >15 years ago Do you use any of these nicotine containing products: None Second hand tobacco smoke exposure: No How often do you have a drink containing alcohol: never How many standard drinks containing alcohol do you have on a typical day: 1 or 2 How often do you have six or more drinks on one occasion: Never AUDIT-C Alcohol total score: 0 Non-prescribed substance use: denies use Caffeine: Yes (1 cup in am) How often does anyone, including family, friends and others, physically hurt you: never How often does anyone, including family, friends and others, insult or talk down to you: never How often does anyone, including family, friends and others, threaten you with harm: never How often does anyone, including family, friends and others, scream or curse at you: never Little interest or pleasure in doing things: not at all Feeling down, depressed, or hopeless: not at all service: No Meds Home Medications and Allergies Home Medications ?Medication ?Instructions ?Recorded ?Confirmed ?Type allopurinol 100 mg tablet 200 mg PO QDAY 10/02/22 02/25/24 History mecobalamin (vitamin B12) 1,000 1,000 mcg PO QDAY 12/26/23 02/25/24 History mcg chewable tablet acetaminophen 500 mg capsule 1,000 mg PO QHS PRN 01/31/24 02/25/24 History furosemide 20 mg tablet 20 mg PO QAM edema 01/31/24 02/25/24 History metoprolol tartrate 100 mg tablet 100 mg PO BID 01/31/24 02/25/24 History spironolactone 25 mg tablet 12.5 mg PO DAILY 01/31/24 02/25/24 History warfarin 5 mg tablet 5 mg PO DAILY 01/31/24 02/25/24 History prednisone 1 mg tablet 2 mg PO DAILY 02/25/24 02/25/24 History Allergies Allergy/AdvReac Type Severity Reaction Status Date / Time propoxyphene Allergy Severe Weakness Verified 01/31/24 07:59 Exam Narrative: Exam Narrative: I 1st examined the patient the emergency department and secondly when she is on the hospital floor. Appears comfortable no acute distress. Cardiac monitoring demonstrates atrial fibrillation with rapid ventricular response, heart rate ranging from 110 to 130s at rest. Vision and hearing are adequate. Alert and oriented to self, place, time, situation. Friendly, articulate, cooperative. External auditory canals and tympanic membranes are normal. Midline nasal septum. Normal nasal mucosa. Dentition in fair repair. Buccal mucosa is moist. Conjugate gaze. No nystagmus. Neck is supple. Midline trachea. No head neck lymphadenopathy. Lungs fairly clear to auscultation without wheezing, rhonchi or rales. Chest wall excursions are full with respiratory efforts. No CVA tenderness. Heart tones with chaotic rhythm. Normal S1-S2. PMI not laterally displaced. Abdomen with active bowel sounds, soft, nontender. Extremities with edema up to her knees bilaterally which he states is stable. No focal motor neurologic deficits. Cranial nerves 3-12 grossly normal. No tremor, asterixis, or ataxia. Independent with transfer, station, and gait. Const: Vital Signs, click to edit/add: Vital Signs - 24 hr 02/25/24 11:44 02/25/24 13:08 02/25/24 13:21 Temperature 97.0 F L Pulse Rate 104 H Pulse Rate [Left B rachial] Pulse Rate [Pulse Oximeter] 92 Respiratory Rate 14 Blood Pressure Blood Pressure [Le ft Arm] Blood Pressure [Le ft Upper Arm] 99/66 Pulse Oximetry 97 98 [facility] 02/25/24 13:29 02/25/24 13:30 02/25/24 13:31 Temperature Pulse Rate 124 H 122 H 135 H Pulse Rate [Left B rachial] Pulse Rate [Pulse Oximeter] Respiratory Rate Blood Pressure 99/80 Blood Pressure [Le ft Arm] Blood Pressure [Le ft Upper Arm] Pulse Oximetry 92 95 95 [facility] 02/25/24 13:32 02/25/24 13:33 02/25/24 13:45 Temperature Pulse Rate 123 H 104 H 121 H Pulse Rate [Left B rachial] Pulse Rate [Pulse Oximeter] Respiratory Rate Blood Pressure 96/73 Blood Pressure [Le ft Arm] Blood Pressure [Le ft Upper Arm] Pulse Oximetry 100 98 100 [facility] 02/25/24 14:02 02/25/24 14:06 02/25/24 14:19 Temperature Pulse Rate 123 H 113 H Pulse Rate [Left B rachial] Pulse Rate [Pulse Oximeter] Respiratory Rate Blood Pressure 94/69 Blood Pressure [Le ft Arm] Blood Pressure [Le ft Upper Arm] Pulse Oximetry 92 97 [facility] 02/25/24 14:34 02/25/24 14:35 02/25/24 14:45 Temperature Pulse Rate 118 H 123 H Pulse Rate [Left B rachial] Pulse Rate [Pulse Oximeter] Respiratory Rate Blood Pressure 111/59 L Blood Pressure [Le ft Arm] Blood Pressure [Le ft Upper Arm] Pulse Oximetry 96 99 Oxygen Delivery Me thod 02/25/24 15:00 02/25/24 15:01 02/25/24 15:45 Temperature 97.8 F Pulse Rate 115 H 119 H Pulse Rate [Left B rachial] 101 H Pulse Rate [Pulse Oximeter] Respiratory Rate 16 Blood Pressure 112/91 H Blood Pressure [Le ft Arm] 108/88 Blood Pressure [Le ft Upper Arm] Pulse Oximetry 97 96 100 Oxygen Delivery Mn thod Room Air 02/25/24 16:52 Temperature Pulse Rate Pulse Rate [Left B rachial] Pulse Rate [Pulse Oximeter] Respiratory Rate 18 Blood Pressure Blood Pressure [Le ft Arm] Blood Pressure [Le ft Upper Arm] Pulse Oximetry 100 [facility] Hospitalist - H&P: Result Labs Labs: Short CBC 02/25/24 Range/Units 12:20 WBC 14.24 H (4.50-11.00) K/uL Hgb 12.1 (12.0-16.0) gm/dL Hct 38.3 (33.0-51.0) % Plt Count 154 (140-440) K/uL BMP 02/25/24 02/25/24 12:20 19:00 Sodium 133 L 134 L Potassium 5.8 H 5.5 H Chloride 105 107 Carbon Dioxide 18 L 15 L BUN 101 H 94 H Creatinine 2.9 H 2.6 H Glucose 115 204 H Calcium 9.5 9.3 Cardiac Enzymes 02/25/24 Range/Units 12:20 Total Creatine Kinase 53 (41-117) U/L Troponin I < 0.01 L (0.01-0.04) ng/mL Liver Function 02/25/24 02/25/24 Range/Units 12:20 19:00 Total Bilirubin 0.8 (0.1-1.5) mg/dL Direct Bilirubin 0.5 (0.0-0.5) mg/dL AST 22 (12-35) U/L ALT 33 (4-35) U/L Alkaline Phosphatase 108 (40-150) U/L Albumin 4.3 4.3 (3.3-5.0) g/dL Urine 02/25/24 Range/Units 14:20 Urine Color Yellow (Yellow) Urine Appearance Clear (Clear) Urine pH 5.5 (5.0-8.5) Ur Specific [place] 1.010 (1.000-1.030) Urine Protein Negative (Negative) Urine Glucose (UA) Negative (Negative) Assessment and Plan Assessment and plan (1) Supratherapeutic INR: Problem comment: -not actively bleeding -no obvious complications -2.5 mg of vitamin K given in the emergency department. I ordered another 2.5 mg. -monitor INR daily. Will hold warfarin for now. Continue to have goal for INR of 2-3. If INR drops below 2-3 may need to bridge with enoxaparin. Still has left atrial appendage thrombus based on RAMEZ from 02/18/2024. Status: Acute (2) Acute on chronic kidney failure: Problem comment: -creatinine rosa from baseline of 1.5-2.9 and BUN increased from 42 to 101 between 01/23/2024 and 02/25/2024. -urinalysis on 02/25/2024 appears benign -most likely the acute component is related to ongoing use of furosemide and spironolactone. I worry about a possible concurrent cardiorenal syndrome given RAMEZ from 02/18/2024 indicating decreased EF with patient known to have A Fib RVR for several weeks now, with inability to DC cardiovert to normal sinus rhythm due to presence of LA thrombus. -small bolus of normal saline given while in the emergency department. -monitor renal function panel. -monitor daily weights and I&Os Status: Acute (3) Acute hyperkalemia: Problem comment: -I suspect this is in great measure due to spironolactone -monitor closely Status: Acute (4) Hyponatremia: Problem comment: -I suspect this is in great measure due to spironolactone -monitor closely Status: Acute (5) Chronic HFrEF (heart failure with reduced ejection fraction): Problem comment: -see cardiomyopathy diagnosis comments -BNP about 10,000 on 02/25/2024 -will recheck transthoracic echocardiogram tomorrow due to my concern about decreasing ejection fraction mentioned in the transesophageal echocardiogram report dated 02/18/2024, without estimate of EF provided. If patient is having uncontrolled AFib RVR, patient may be having progressive tachycardia induced cardiomyopathy. Status: Acute (6) Cardiomyopathy: Problem comment: -suspect multifactorial: Tachycardia induced, valvular cardiomyopathy, hypertensive cardiomyopathy. -RAMEZ on 02/18/2024 indicates, left ventricular ejection fraction appears mild to moderately reduced. -TTE on 12/28/2023 estimates EF of 55-60%, mildly enlarged right ventricle with mildly reduced global systolic RV function, severe mitral stenosis with mean gradient of 17 mmHg at heart rate of 136 beats per minute, moderate tricuspid regurgitation, moderately increased estimated pulmonary pressures by tricuspid regurgitation velocity and right atrial pressure (40 mmHg plus right atrial pressure). Status: Acute (7) Thrombus of left atrial appendage: Problem comment: -1st noticed on 01/24/2024 when patient presented for DC cardioversion and RAMEZ confirmed presence of left atrial thrombus. -noticed it again at time of 2nd DC cardioversion attempt on 02/18/2024, with RAMEZ demonstrating thrombus appearing larger in size and more organized than 01/24/2024. Thus DC cardioversion was not undertaken again. Status: Acute (8) Leukocytosis: Problem comment: -appears reactive rather than from acute demargination, vacillating between 9,000 and 18,000 since 11/2023. Etiology uncertain at this time. Status: Acute Plan 1. Reviewed impression with patient. 2. Answered her questions. 3. Patient agreeable to above stated plans and recommendations Total Time Spent Total Time Spent: 70 minutes
[2024-02-25] MEDS: SODIUM CHLORIDE 0.9 % (FLUSH) 10 ML SYRINGE 5 ML IVF (20:29)
[2024-02-25] MEDS: dilTIAZem 180 MG CAP (CD) PO (20:30)
[2024-02-25] MEDS: METOPROLOL TARTRATE 100 MG TABLET PO (20:30)
[2024-02-26] VITALS (10 sets, daily range): BP systolic 89–111; BP diastolic 43–83; PULSE 49–122; RESP 16–18; TEMP 36.4–36.9; O2SAT 94–98
[2024-02-26 06:07] LABS: HCO3 VBG 20 mmol/L (21-28); Lactate* 1.8 mmol/L (0.5-1.9); PCO2 VBG 40 mmHG (40-50); PO2 VBG 30.7 mmHG (25-47); pH VBG 7.313 (7.32-7.43)
[2024-02-26] MEDS: LEVOTHYROXINE 75 MCG TABLET PO (06:13)
[2024-02-26] MEDS: OMEPRAZOLE 20 MG CAPSULE DR PO (06:13)
[2024-02-26 06:18] LABS: Hemoglobin* 11.3 gm/dL (12.0-16.0); Mean Corpuscular HGB Conc 31 gm/dL (32-36); Mean Corpuscular Hemoglobin 33 pg (26-34); Mean Corpuscular Volume 103 fL (80-100); Platelet Count* 160 K/uL (140-440); Red Blood Count 3.48 m/uL (4.00-5.20); White Blood Count* 14.73 K/uL (4.50-11.00)
[2024-02-26 06:24] LABS: Slide Review Reflex No
[2024-02-26 06:35] LABS: Chloride* 108 mmol/L (96-114); Potassium* 5.7 mmol/L (3.6-5.1); Sodium* 134 mmol/L (135-149)
[2024-02-26 06:38] LABS: Anion Gap 7 mEq/L (7-15); Blood Urea Nitrogen* 95 mg/dL (7-30); Carbon Dioxide* 19 mmol/L (20-32); Creatinine* 2.2 mg/dL (0.5-1.5); Est. Creatinine Clearance* 16.73; Estimated Glomerular Filt Rate 22 ml/min
[2024-02-26 06:39] LABS: Calcium* 9.4 mg/dL (8.4-10.6); Glucose* 87 mg/dL (60-115); Magnesium* 2.1 mg/dL (1.5-2.6); Phosphorus* 3.9 mg/dL (2.5-4.5)
--- NOTE | 2024-02-26 06:39 | PC.NURSE ---
End of shift [id number]: Pt is A&O (but forgetful- needing reminders on walker use & call light use), afebrile and VSS with exception to irregular HR. HR got as high as 160 with ambulation- x1 dose of IV Diltiazem 5mg was given @ HS and pt was started on 180mg PO daily (first dose given @ HS). She is Ax1 with 4ww and gait belt for ambulation and transfers. She denies pain, N/V and lightheadedness. Throughout the night, HR would drop down to 30s-40s bpm with a quick recovery. TELE shows A. Fib with RBBB and occasionally would show some A. Flutter. ECHO ordered to be completed today, 02/25. Pt slept well in between cares, did not use her call light overnight rather would just wait to use the bathroom with RN rounding. Continent of B&B; no BM this shift. Call light was often found on the floor next to her bed. Bed alarms in place overnight. ?
[2024-02-26 06:51] LABS: Troponin I* 0.02 ng/mL (0.01-0.04)
[2024-02-26 06:54] LABS: NT Pro B Type NatriureticPept* 7880 pg/mL
[2024-02-26 06:55] LABS: INR 2.77 (0.91-1.10); Prothrombin Time 31.4 Seconds
[2024-02-26] MEDS: SODIUM ZIRCONIUM CYCLOSILICATE 10 GM PO (07:58)
--- NOTE | 2024-02-26 08:24 | P.IMPN_ITS ---
Progress Note: A&P Assessment and plan (1) Supratherapeutic INR: Problem details: - not actively bleeding, does have bruising over R breast and R triceps from recent fall - 2.5 mg of vitamin K given in the ER, then repeated x1 - INR down to 2.7 on 02/25, anticipate that this will fall again given Vitamin K administration on admission - initiate bridging with Enoxaparin 02/25 and restart Warfarin 02/25 given therapeutic INR - continue to follow daily INR (goal 2.5-3.5 per Cardiology records) Status: Acute (2) Acute on chronic kidney failure: Problem details: - creatinine rosa from baseline of 1.5-2.9 and BUN increased from 42 to 101 between 01/23/2024 and 02/25/2024 - urinalysis on 02/25/2024 appears benign - most likely the acute component is iatrogenic (Furosemide and Spironolactone) - possible concurrent cardiorenal syndrome given RAMEZ from 02/18/2024: decreased EF, A Fib w/RVR for several weeks now, inability to cardiovert 2/2 LA thrombus - Received gentle IVF bolus in ED - follow renal function, Is/Os, holding Spironolactone and Furosemide as of 02/25/24 Status: Acute (3) Acute hyperkalemia: Problem details: - likely iatrogenic 2/2 spironolactone - [place] x1 on 02/25, continue to follow Status: Acute (4) Hyponatremia: Problem details: - also likely iatrogenic, continue to follow Status: Acute (5) Chronic HFrEF (heart failure with reduced ejection fraction): Problem details: - BNP about 10,000 on 02/25/2024 - repeat TTE on 02/25 to evaluate EF given concern for progressive tachycardia induced cardiomyopathy (poorly controlled a fib with RVR over the past few weeks) Status: Acute (6) Cardiomyopathy: Problem details: - suspect multifactorial: Tachycardia induced, valvular cardiomyopathy, hypertensive cardiomyopathy. - RAMEZ on 02/18/2024 indicates, left ventricular ejection fraction appears mild to moderately reduced. - TTE on 12/28/2023 estimates EF of 55-60%, mildly enlarged right ventricle with mildly reduced global systolic RV function, severe mitral stenosis with mean gradient of 17 mmHg at heart rate of 136 beats per minute, moderate tricuspid regurgitation, moderately increased estimated pulmonary pressures by tricuspid regurgitation velocity and right atrial pressure (40 mmHg plus right atrial pressure). Status: Acute (7) Thrombus of left atrial appendage: Problem details: -1st noticed on 01/24/2024 when patient presented for DC cardioversion and RAMEZ confirmed presence of left atrial thrombus. -noticed it again at time of 2nd DC cardioversion attempt on 02/18/2024, with RAMEZ demonstrating thrombus appearing larger in size and more organized than 01/24/2024. Thus DC cardioversion was not undertaken again. Status: Acute (8) Leukocytosis: Problem details: - appears reactive rather than from acute demargination, vacillating between 9,000 and 18,000 since 11/2023. Etiology uncertain at this time, no evidence of infectious process Status: Acute Plan - per above - warfarin with Lovenox bridge for ppx Subjective Date Seen: 02/26/24 Interval history: Abimbola was admitted to the hospital last night for an INR of 14.4, noted incidentally on a clinic lab draw. She is on Warfarin for a known L atrial thrombus; is following with cardiology for a planned cardioversion. This has already been canceled twice due to persistent thrombus and concern for subtherapeutic anticoagulation; currently rescheduled for March 25. Patient received vitamin K 2.5 x2 upon admission. Also noted to have bruising of right triceps and right breast, post mechanical fall at home. In addition, continues to have intermittent tachycardia with heart rate 100-120. This morning, her blood pressure was noted to be low (systolic 60s-90s) during therapies. She was asymptomatic at this time. Today, her INR is 2.77 Per cardiology, goal INR prior to cardioversion is 2.5-3.5. Given therapeutic INR today but recent administration of vitamin K, initiate Lovenox bridge on 02/25. This morning, patient is feeling better. She is asymptomatic from her t achycardia and intermittent hypotension. Denies chest pain or shortness of breath. TTE is scheduled for today to evaluate for tachycardia Exam Narrative: Exam Narrative: GEN: Alert HEENT: Normal external ears, EOMIs bilaterally, no scleral icterus CV: Heart rhythm is chaotic with rate 100s, unable to ascertain any significant murmur R: LCTA bilaterally Ext: wwp, trace bilateral edema Skin: Large area of ecchymosis over right breast, also has a large area of ecchymosis near right tricep with full range of motion of shoulder and elbow. Right forearm skin tear is currently wrapped with [place] Neuro: No focal deficits Psych: Appropriate Const: Vital Signs, click to edit/add: Vital Signs - 24 hr 02/25/24 11:44 02/25/24 13:08 02/25/24 13:21 Temperature 97.0 F L Pulse Rate 104 H Pulse Rate [Left B rachial] Pulse Rate [Pulse Oximeter] 92 Respiratory Rate 14 Blood Pressure Blood Pressure [Le ft Arm] Blood Pressure [Le ft Upper Arm] 99/66 Pulse Oximetry 97 98 97 Oxygen Delivery Me od Room Air 02/25/24 13:29 02/25/24 13:30 02/25/24 13:31 Temperature Pulse Rate 124 H 122 H 135 H Pulse Rate [Left B rachial] Pulse Rate [Pulse Oximeter] Respiratory Rate Blood Pressure 99/80 Blood Pressure [Le ft Arm] Blood Pressure [Le ft Upper Arm] Pulse Oximetry 92 95 95 Oxygen Delivery Me od 02/25/24 13:32 02/25/24 13:33 02/25/24 13:45 Temperature Pulse Rate 123 H 104 H 121 H Pulse Rate [Left B rachial] Pulse Rate [Pulse Oximeter] Respiratory Rate Blood Pressure 96/73 Blood Pressure [Le ft Arm] Blood Pressure [Le ft Upper Arm] Pulse Oximetry 100 98 100 Oxygen Delivery Me od 02/25/24 14:02 02/25/24 14:06 02/25/24 14:19 Temperature Pulse Rate 123 H 113 H Pulse Rate [Left B rachial] Pulse Rate [Pulse Oximeter] Respiratory Rate Blood Pressure 94/69 Blood Pressure [Le ft Arm] Blood Pressure [Le ft Upper Arm] Pulse Oximetry 92 97 Oxygen Delivery Me od 02/25/24 14:34 02/25/24 14:35 02/25/24 14:45 Temperature Pulse Rate 118 H 123 H Pulse Rate [Left B rachial] Pulse Rate [Pulse Oximeter] Respiratory Rate Blood Pressure 111/59 L Blood Pressure [Le ft Arm] Blood Pressure [Le ft Upper Arm] Pulse Oximetry 96 99 Oxygen Delivery Me od 02/25/24 15:00 02/25/24 15:01 02/25/24 15:45 Temperature 97.8 F Pulse Rate 115 H 119 H Pulse Rate [Left B rachial] 101 H Pulse Rate [Pulse Oximeter] Respiratory Rate 16 Blood Pressure 112/91 H Blood Pressure [Le ft Arm] 108/88 Blood Pressure [Le ft Upper Arm] Pulse Oximetry 97 96 100 Oxygen Delivery De thod Room Air 02/25/24 16:52 02/25/24 23:00 02/25/24 23:00 Temperature Pulse Rate 124 H Pulse Rate [Left B rachial] 101 H Pulse Rate [Pulse Oximeter] Respiratory Rate 18 20 Blood Pressure Blood Pressure [Le ft Arm] Blood Pressure [Le ft Upper Arm] Pulse Oximetry 100 Oxygen Delivery De thod Room Air 02/25/24 23:00 02/25/24 23:00 02/26/24 03:00 Temperature 98.3 F 98.4 F Pulse Rate Pulse Rate [Left B rachial] Pulse Rate [Pulse Oximeter] 101 H 81 Respiratory Rate 20 20 18 Blood Pressure Blood Pressure [Le ft Arm] 100/86 111/59 L Blood Pressure [Le ft Upper Arm] Pulse Oximetry 95 95 [facility] Room Air 02/26/24 07:46 Temperature 98.4 F Pulse Rate Pulse Rate [Left B rachial] Pulse Rate [Pulse Oximeter] 122 H Respiratory Rate 18 Blood Pressure Blood Pressure [Le ft Arm] 100/77 Blood Pressure [Le ft Upper Arm] Pulse Oximetry 94 [facility] Labs Labs: Laboratory Results - last 24 hr 02/25/24 02/25/24 02/25/24 12:20 13:08 13:46 WBC 14.24 H RBC 3.67 L Hgb 12.1 Hct 38.3 MCV 104 H MCH 33 MCHC 32 RDW Coeff of Lindsey 15.4 Plt Count 154 Neut % (Auto) 86.2 H Lymph % (Auto) 9.8 L Gray % (Auto) 3.2 Eos % (Auto) 0.1 Baso % (Auto) 0.1 Neut # (Auto) 12.30 H Lymph # (Auto) 1.40 Gray # (Auto) 0.50 Eos # (Auto) 0.00 Baso # (Auto) 0.00 Abs Immat Gran (auto) 0.10 Imm/Tot Granulo (auto) 0.6 INR VBG pH VBG pCO2 VBG pO2 VBG HCO3 Sodium 133 L Potassium 5.8 H Chloride 105 Carbon Dioxide 18 L Anion Gap 10 BUN 101 H Creatinine 2.9 H Estimated Creat Clear 12.69 Estimated GFR 16 Glucose 115 Lactate Calcium 9.5 Phosphorus Magnesium Total Bilirubin 0.8 Direct Bilirubin 0.5 AST 22 ALT 33 Alkaline Phosphatase 108 Total Creatine Kinase 53 Troponin I < 0.01 L C-Reactive Protein NT-Pro-B Natriuret Pep 9790 Total Protein 6.9 Albumin 4.3 TSH Urine Color Urine Appearance Urine pH Ur Specific [place] Urine Protein Urine Glucose (UA) Urine Ketones Urine Blood Urine Nitrite Urine Bilirubin Urine Urobilinogen Ur Leukocyte Esterase Urine RBC Urine WBC Ur Squamous Epith Cells Urine Bacteria Lab Acknowledgement Test Added Test Added 02/25/24 02/25/24 02/25/24 13:58 14:20 14:34 WBC RBC Hgb Hct MCV MCH MCHC RDW Coeff of Lindsey Plt Count Neut % (Auto) Lymph % (Auto) Gray % (Auto) Eos % (Auto) Baso % (Auto) Neut # (Auto) Lymph # (Auto) Gray # (Auto) Eos # (Auto) Baso # (Auto) Abs Immat Gran (auto) Imm/Tot Granulo (auto) INR VBG pH VBG pCO2 VBG pO2 VBG HCO3 Sodium Potassium Chloride Carbon Dioxide Anion Gap BUN Creatinine Estimated Creat Clear Estimated GFR Glucose Lactate 1.6 Calcium Phosphorus Magnesium Total Bilirubin Direct Bilirubin AST ALT Alkaline Phosphatase Total Creatine Kinase Troponin I C-Reactive Protein NT-Pro-B Natriuret Pep Total Protein Albumin TSH Urine Color Yellow Urine Appearance Clear Urine pH 5.5 Ur Specific [place] 1.010 Urine Protein Negative Urine Glucose (UA) Negative Urine Ketones Negative Urine Blood Negative Urine Nitrite Negative Urine Bilirubin Negative Urine Urobilinogen 0.2 Ur Leukocyte Esterase Negative Urine RBC 2-5 A Urine WBC 0-2 Ur Squamous Epith Cells Many A Urine Bacteria Few A Lab Acknowledgement New Spec Needed 02/25/24 02/26/24 19:00 05:44 WBC 14.73 H RBC 3.48 L Hgb 11.3 L Hct 36.0 MCV 103 H MCH 33 MCHC 31 L RDW Coeff of Lindsey Plt Count 160 Neut % (Auto) Lymph % (Auto) Gray % (Auto) Eos % (Auto) Baso % (Auto) Neut # (Auto) Lymph # (Auto) Gray # (Auto) Eos # (Auto) Baso # (Auto) Abs Immat Gran (auto) Imm/Tot Granulo (auto) INR 2.77 H VBG pH 7.313 L VBG pCO2 40 VBG pO2 30.7 VBG HCO3 20 L Sodium 134 L 134 L Potassium 5.5 H 5.7 H Chloride 107 108 Carbon Dioxide 15 L 19 L Anion Gap 12 7 BUN 94 H 95 H Creatinine 2.6 H 2.2 H Estimated Creat Clear 14.16 16.73 Estimated GFR 18 22 Glucose 204 H 87 Lactate 1.8 Calcium 9.3 9.4 Phosphorus 4.4 3.9 Magnesium 2.1 Total Bilirubin Direct Bilirubin AST ALT Alkaline Phosphatase Total Creatine Kinase Troponin I 0.02 C-Reactive Protein 1.0 NT-Pro-B Natriuret Pep 7880 Total Protein Albumin 4.3 TSH 1.710 Urine Color Urine Appearance Urine pH Ur Specific [place] Urine Protein Urine Glucose (UA) Urine Ketones Urine Blood Urine Nitrite Urine Bilirubin Urine Urobilinogen Ur Leukocyte Esterase Urine RBC Urine WBC Ur Squamous Epith Cells Urine Bacteria Lab Acknowledgement
[2024-02-26] MEDS: dilTIAZem 180 MG CAP (CD) PO (09:11)
[2024-02-26] MEDS: allopurinoL 100 MG TABLET 200 MG PO (09:11)
[2024-02-26] MEDS: CYANOCOBALAMIN (VITAMIN B-12) 500 MCG TABLET 1000 MCG PO (09:12)
[2024-02-26] MEDS: METOPROLOL TARTRATE 100 MG TABLET PO (09:12)
[2024-02-26] MEDS: predniSONE 1 MG TABLET 2 MG PO (09:12)
--- NOTE | 2024-02-26 11:18 | NUTR.NU ---
RDN with MD consult for diet education related to Warfarin therapy. Patient admitted for Supratherapeutic INR. Current weight 151lb 1.6oz; height 5ft 4in; BMI 25.9 kg/m2. Weight has been stable recently. Current diet is 2 gram sodium. Meal intake was adequate at dinner yesterday at 80%. RDN visited with patient whom reported recently starting warfarin, however was not sure the exact start date. Patient reports she has tried not to include high vitamin k containing foods in her diet. She agreed to receive diet education related to warfarin therapy without designated caregiver present. Reviewed vitamin k containing foods. Recommended patient include these foods consistently in her diet, or avoid them consistently. Provided Vitamin k and Medications Nutrition Therapy handout from [facility]. Patient had no questions or concerns. RDN's contact information provided and encouraged patient to call with questions. RDN to follow up as needed.
--- NOTE | 2024-02-26 12:22 | PC.PHA ---
Addendum entered and electronically signed by Kendal Najera 02/27/24 10:27: 02/27/24 INR = 1.74 (effect seen from vitamin k 2.5mg x 2 on 02/25/24), Lovenox 70mg SQ Q24hr bridging for atrial thrombus (frequency reduced to Q24h for renal dysfunction), warfarin 5 mg today. Original Note: Warfarin consult note: Reason for warfarin: Left Atrium Thrombus INR goal requested by the provider: 2.5-3.5 Most recent INR: [] (date and result) 02/26/24, 2.77 Usual home dose (if any): 5 mg daily Today's dose ordered: 5 mg Vitamin K given: [] date, time, and dose given: 02/25/24,1430, 2.5 mg po Comments: INR on 02/24=14.37, bridging with lovenox today as patient has been awaiting cardioversion at [facility]. Dr Benito following/ordering
[2024-02-26] MEDS: ENOXAPARIN 100 MG/ML INJ 70 MG SUBCUT (12:47)
[2024-02-26] MEDS: WARFARIN 5 MG TABLET PO (12:49)
[2024-02-26] MEDS: PERFLUTREN LIPID MICROSPHERES 2 ML VIAL IV (14:24)
[2024-02-26 15:21] LABS: Potassium* 5.3 mmol/L (3.6-5.1)
--- NOTE | 2024-02-26 19:01 | PC.NURSE ---
shift note HR as low as 38/min; at fib, at flutter, PVc's, RBBB. BP's 80's/50's. pt asymptomatic. bilat l/;;e non pitting edema. Pt states this afternoon she was laying on lt side and felt sudden onset of sob with chest pressure. pt states episode didn't last long (<10 mins).
[2024-02-26] MEDS: SODIUM CHLORIDE 0.9 % (FLUSH) 10 ML SYRINGE 5 ML IVF (22:03)
[2024-02-27] VITALS (12 sets, daily range): BP systolic 90–121; BP diastolic 48–83; PULSE 63–129; RESP 16–20; TEMP 36.6–36.9; O2SAT 95–97
[2024-02-27] MEDS: ENOXAPARIN 100 MG/ML INJ 70 MG SUBCUT (00:04)
[2024-02-27] MEDS: LEVOTHYROXINE 75 MCG TABLET PO (06:04)
[2024-02-27] MEDS: OMEPRAZOLE 20 MG CAPSULE DR PO (06:04)
--- NOTE | 2024-02-27 06:14 | PC.NURSE ---
End of shift [id number]: A&O pleasant and cooperative. VSS w/ sats >90% on RA. Denies pain. Up with A1 walker and GB. Denies any dizziness/lightheadedness. Bed alarm in place.
[2024-02-27 06:52] LABS: Basophils Absolute Auto 0.02 K/uL (0.00-0.30); Basophils Percent Auto 0.2 % (0.0-3.0); Eosinophils Absolute Auto 0.07 K/uL (0.00-0.50); Eosinophils Percent Auto 0.7 % (0.0-7.0); Hematocrit 32.5 % (33.0-51.0); Hemoglobin* 10.3 gm/dL (12.0-16.0); Immature Granulocytes Abs Auto 0.09 K/uL (0.00-0.30); Immature Granulocytes Pct Auto 0.9 %; Lymphocytes Absolute Auto 2.33 K/uL (0.90-2.90); Lymphocytes Percent Auto 24.4 % (20-44); Mean Corpuscular HGB Conc 32 gm/dL (32-36); Mean Corpuscular Hemoglobin 33 pg (26-34); Mean Corpuscular Volume 105 fL (80-100); Monocytes Percent Auto 6.2 % (0.0-11.0); Neutrophils Absolute Auto 6.43 K/uL (1.7-7.0); Neutrophils Percent Auto 67.6 % (42.0-72.0); Platelet Count* 129 K/uL (140-440); RDW Coefficient of Variation % 15.4 % (11.5-15.5); White Blood Count* 9.53 K/uL (4.50-11.00)
[2024-02-27 06:53] LABS: Albumin* 3.5 g/dL (3.3-5.0); Chloride* 108 mmol/L (96-114)
[2024-02-27 06:54] LABS: Sodium* 133 mmol/L (135-149)
[2024-02-27 06:56] LABS: Anion Gap 6 mEq/L (7-15); Aspartate Amino Transferase* 19 U/L (12-35); Bilirubin Total* 1.1 mg/dL (0.1-1.5); Carbon Dioxide* 19 mmol/L (20-32); Creatinine* 2.1 mg/dL (0.5-1.5); Est. Creatinine Clearance* 17.53; Estimated Glomerular Filt Rate 23 ml/min
[2024-02-27 06:57] LABS: Alanine Aminotransferase* 20 U/L (4-35); Alkaline Phosphatase* 78 U/L (40-150); Blood Urea Nitrogen* 83 mg/dL (7-30); Calcium* 9.1 mg/dL (8.4-10.6); Glucose* 82 mg/dL (60-115); INR 1.74 (0.91-1.10); Prothrombin Time 21.6 Seconds; Total Protein* 5.8 g/dL (6.0-8.3)
[2024-02-27 07:00] LABS: Slide Review Reflex No
[2024-02-27] MEDS: predniSONE 1 MG TABLET 2 MG PO (10:22)
[2024-02-27] MEDS: allopurinoL 100 MG TABLET 200 MG PO (10:24)
[2024-02-27] MEDS: CYANOCOBALAMIN (VITAMIN B-12) 500 MCG TABLET 1000 MCG PO (10:25)
[2024-02-27] MEDS: SODIUM CHLORIDE 0.9 % (FLUSH) 10 ML SYRINGE 5 ML IVF ×2 (10:25→20:37)
--- NOTE | 2024-02-27 12:43 | P.IMPN_ITS ---
Progress Note: A&P Assessment and plan (1) Supratherapeutic INR: Problem details: - not actively bleeding, does have bruising over R breast and R triceps from recent fall - 2.5 mg of vitamin K given in the ER, then repeated x1 - INR down to 2.7 on 02/25, anticipate that this will fall again given Vitamin K administration on admission - initiate bridging with Enoxaparin 02/25 and restart Warfarin 02/25 given therapeutic INR - continue to follow daily INR (goal 2.5-3.5 per Cardiology records) Status: Acute (2) Chronic atrial fibrillation: Problem details: -November 2023; noted left atrial thrombus. cardioversion appt cancelled twice b/c of thrombus -warfarin preferred over DOAC b/c this is thought to be valvular AFIB Status: Acute (3) Thrombus of left atrial appendage: Problem details: -1st noticed on 01/24/2024 when patient presented for DC cardioversion and RAMEZ confirmed presence of left atrial thrombus. -noticed it again at time of 2nd DC cardioversion attempt on 02/18/2024, with RAMEZ demonstrating thrombus appearing larger in size and more organized than 01/24/2024. Thus DC cardioversion was not undertaken again. 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 GOAL 2.5-3.5 Status: Acute (5) Mitral valve stenosis, severe: Problem details: has seen the valve clinic and they consulted that getting her back in sinus with cardioversion is the first step and then reassess valve function and effect on cardiac output. Status: Acute (6) Acute on chronic kidney failure: Problem details: - creatinine rosa from baseline of 1.5-2.9 and BUN increased from 42 to 101 between 01/23/2024 and 02/25/2024 - urinalysis on 02/25/2024 appears benign - most likely the acute component is iatrogenic (Furosemide and Spironolactone) - possible concurrent cardiorenal syndrome given RAMEZ from 02/18/2024: decreased EF, A Fib w/RVR for several weeks now, inability to cardiovert 2/2 LA thrombus - Received gentle IVF bolus in ED - follow renal function, Is/Os, holding Spironolactone and Furosemide as of 02/25/24 - slowly improving as of 02/26; 2.1 Status: Acute (7) Hyponatremia: Problem details: - mild. following. Status: Acute (8) Acute hyperkalemia: Problem details: - likely iatrogenic 2/2 spironolactone - [place] x1 on 02/25, continue to follow - normal on 02/26 Status: Resolved (9) Chronic HFrEF (heart failure with reduced ejection fraction): Problem details: - BNP about 10,000 on 02/25/2024 - repeat TTE on 02/25 to evaluate EF given concern for progressive tachycardia induced cardiomyopathy (poorly controlled a fib with RVR over the past few weeks) Status: Acute (10) Cardiomyopathy: Problem details: - suspect multifactorial: Tachycardia induced, valvular cardiomyopathy, hypertensive cardiomyopathy. - RAMEZ on 02/18/2024 indicates, left ventricular ejection fraction appears mild to moderately reduced. - TTE on 12/28/2023 estimates EF of 55-60%, mildly enlarged right ventricle with mildly reduced global systolic RV function, severe mitral stenosis with mean gradient of 17 mmHg at heart rate of 136 beats per minute, moderate tricuspid regurgitation, moderately increased estimated pulmonary pressures by tricuspid regurgitation velocity and right atrial pressure (40 mmHg plus right atrial pressure). Status: Acute (11) Leukocytosis: Problem details: - appears reactive rather than from acute demargination, vacillating between 9,000 and 18,000 since 11/2023. Etiology uncertain at this time, no evidence of infectious process -resolved 02/26 Status: Resolved (12) Hypothyroidism: Status: Chronic (13) Hypertension: Status: Chronic Subjective Date Seen: 02/27/24 Interval history: Daily Progress Note - Hospital Medicine Day #: 3 CC: elevated INR; falls; atrial fibrillation INR of 14.4, noted incidentally on a clinic lab draw. Per cardiology, goal INR prior to cardioversion is 2.5-3.5. OVERNIGHT UPDATES FROM STAFF & MED, LAB, IMAGING UPDATES -stable night. reports feeling tired. -blood pressure soft; asymptomatic -intermittently tachycardic. CBC reflects that her white blood cell count has normalized. Her hemoglobin is down a little bit to 10.3 from a baseline 12. Platelet count 129 INR 1.74 down from 2.77 Renal function is improving. Creatinine is 2.1. GFR 23. Baseline is 1.4 to 1.6. Sodium has been steady between 133 and 134 with a baseline of 140. Objective: pleasant; playing solitaire on her ipad when I enter. Vitals: see above Lungs: Clear. Cardiac: S1S2. irregular. 10/16 NISHA. Disposition/Potential discharge - Likely to return to previous living situation. Today I spent 50minutes seeing the patient, reviewing Expanse and EPIC notes/diagnostics, discussing the care plan with our care time that includes social work, PT/OT, pharmacy, RT, custodial and documenting my impressions and plan in the medical record. Exam Const: Vital Signs, click to edit/add: Vital Signs - 24 hr 02/26/24 14:52 02/26/24 15:00 02/26/24 15:00 Temperature Pulse Rate 50 L Pulse Rate [Left B rachial] 50 L Pulse Rate [Pulse Oximeter] 50 L Pulse Rate [orthos tatic sitting Left Brachial] 49 L Pulse Rate [orthos tatic standing Lef t Brachial] 51 L Respiratory Rate 18 Blood Pressure [Le ft Arm] Blood Pressure [Ri ght Arm] Blood Pressure [or thostatic lying Le ft Arm] 89/43 L Blood Pressure [or thostatic sitting Left Arm] 96/53 L Blood Pressure [or thostatic standing Left Arm] 92/64 Pulse Oximetry Oxygen Delivery Me thod 02/26/24 15:00 02/26/24 15:00 02/26/24 19:00 Temperature 97.6 F 97.6 F Pulse Rate Pulse Rate [Left B rachial] Pulse Rate [Pulse Oximeter] 50 L 64 Pulse Rate [orthos tatic sitting Left Brachial] Pulse Rate [orthos tatic standing Lef t Brachial] Respiratory Rate 18 18 18 Blood Pressure [Le ft Arm] 89/43 L 98/60 Blood Pressure [Ri ght Arm] Blood Pressure [or thostatic lying Le ft Arm] Blood Pressure [or thostatic sitting Left Arm] Blood Pressure [or thostatic standing Left Arm] Pulse Oximetry 98 98 96 Oxygen Delivery Me thod Room Air Room Air Room Air 02/26/24 23:03 02/26/24 23:17 02/26/24 23:37 Temperature 97.9 F Pulse Rate 68 Pulse Rate [Left B rachial] Pulse Rate [Pulse Oximeter] 68 Pulse Rate [orthos tatic sitting Left Brachial] Pulse Rate [orthos tatic standing Lef t Brachial] Respiratory Rate 16 16 Blood Pressure [Le ft Arm] 104/83 Blood Pressure [Ri ght Arm] Blood Pressure [or thostatic lying Le ft Arm] Blood Pressure [or thostatic sitting Left Arm] Blood Pressure [or thostatic standing Left Arm] Pulse Oximetry 98 98 [facility] 02/27/24 02:57 02/27/24 07:15 02/27/24 08:20 Temperature 97.9 F Pulse Rate 89 Pulse Rate [Left B rachial] Pulse Rate [Pulse Oximeter] 68 78 Pulse Rate [orthos tatic sitting Left Brachial] Pulse Rate [orthos tatic standing Lef t Brachial] Respiratory Rate 16 20 Blood Pressure [Le ft Arm] 111/61 Blood Pressure [Ri ght Arm] Blood Pressure [or thostatic lying Le ft Arm] Blood Pressure [or thostatic sitting Left Arm] Blood Pressure [or thostatic standing Left Arm] Pulse Oximetry 96 Oxygen Delivery Me thod 02/27/24 08:20 02/27/24 08:20 02/27/24 11:00 Temperature Pulse Rate Pulse Rate [Left B rachial] Pulse Rate [Pulse Oximeter] 78 63 Pulse Rate [orthos tatic sitting Left Brachial] Pulse Rate [orthos tatic standing Lef t Brachial] Respiratory Rate 20 20 18 Blood Pressure [Le ft Arm] Blood Pressure [Ri ght Arm] 90/48 L 93/56 L Blood Pressure [or thostatic lying Le ft Arm] Blood Pressure [or thostatic sitting Left Arm] Blood Pressure [or thostatic standing Left Arm] Pulse Oximetry 96 96 97 [facility] Room Air Room Air Labs Labs: Laboratory Results - last 24 hr 02/26/24 02/27/24 14:58 05:56 WBC 9.53 RBC 3.10 L Hgb 10.3 L Hct 32.5 L MCV 105 H MCH 33 MCHC 32 RDW Coeff of Lindsey 15.4 Plt Count 129 L Neut % (Auto) 67.6 Lymph % (Auto) 24.4 [place] % (Auto) 6.2 Eos % (Auto) 0.7 Baso % (Auto) 0.2 Neut # (Auto) 6.43 Lymph # (Auto) 2.33 [place] # (Auto) 0.60 Eos # (Auto) 0.07 Baso # (Auto) 0.02 Abs Immat Gran (auto) 0.09 Imm/Tot Granulo (auto) 0.9 INR 1.74 H Sodium 133 L Potassium 5.3 H 5.0 Chloride 108 Carbon Dioxide 19 L Anion Gap 6 L BUN 83 H Creatinine 2.1 H Estimated Creat Clear 17.53 Estimated GFR 23 Glucose 82 Calcium 9.1 Total Bilirubin 1.1 AST 19 ALT 20 Alkaline Phosphatase 78 Total Protein 5.8 L Albumin 3.5
[2024-02-27 13:16] LABS: Magnesium* 2.1 mg/dL (1.5-2.6)
[2024-02-27 13:29] LABS: Troponin I* < 0.01 ng/mL (0.01-0.04)
[2024-02-27] MEDS: DIGOXIN 250 MCG TABLET 500 MCG PO (16:38)
[2024-02-27] MEDS: WARFARIN 5 MG TABLET PO (16:38)
--- NOTE | 2024-02-27 19:08 | PC.NURSE ---
Pt pleasant and cooperative. Denies pain. HR has been unstable(shilpi to tachy) and rhythm continues to be in A. Fib. See MAR for new medication orders given. Up with walker and SBA, pt is strong and steady with ambulation.
[2024-02-27] MEDS: DIGOXIN 250 MCG TABLET PO (20:37)
[2024-02-27] MEDS: METOPROLOL TARTRATE 100 MG TABLET 50 MG PO (20:37)
[2024-02-27] MEDS: ENOXAPARIN 80 MG/0.8 ML INJ 70 MG SUBCUT (20:38)
[2024-02-28 00:15] VITALS: PULSE 26
[2024-02-28 02:38] VITALS: PULSE 39
[2024-02-28 03:15] VITALS: BP 109/80; PULSE 103; RESP 18; O2SAT 97
[2024-02-28] MEDS: LEVOTHYROXINE 75 MCG TABLET PO (06:23)
[2024-02-28] MEDS: OMEPRAZOLE 20 MG CAPSULE DR PO (06:23)
[2024-02-28 06:27] LABS: HCO3 VBG 22 mmol/L (21-28); PCO2 VBG 37 mmHG (40-50); PO2 VBG 35.8 mmHG (25-47); pH VBG 7.384 (7.32-7.43)
[2024-02-28 06:36] LABS: Hematocrit 32.3 % (33.0-51.0); Hemoglobin* 10.3 gm/dL (12.0-16.0); Mean Corpuscular HGB Conc 32 gm/dL (32-36); Mean Corpuscular Hemoglobin 34 pg (26-34); Mean Corpuscular Volume 105 fL (80-100); Platelet Count* 132 K/uL (140-440); Red Blood Count 3.07 m/uL (4.00-5.20); White Blood Count* 8.12 K/uL (4.50-11.00)
--- NOTE | 2024-02-28 06:36 | PC.NURSE ---
End of shift [id number]: A&O pleasant and cooperative. BP stable. Upon arrival HR 90-130s. Scheduled medication given. Around 2330 pt?s HR dropped to 26bpm. Pt asymptomatic. MD contacted. Held digoxin per MD. No other new orders. HR maintained 30s-40s until 0300. denies , lightheadedness/dizziness. Up w/ A1 walker and gait belt. Denies pain. Bed alarm in place.
[2024-02-28 06:41] LABS: Slide Review Reflex No
[2024-02-28 07:00] VITALS: BP 119/80; PULSE 82; PULSE 96; RESP 16; TEMP 36.8; O2SAT 95
[2024-02-28 07:15] LABS: Albumin* 3.2 g/dL (3.3-5.0); Chloride* 110 mmol/L (96-114); Sodium* 134 mmol/L (135-149)
[2024-02-28 07:18] LABS: Anion Gap 4 mEq/L (7-15); Blood Urea Nitrogen* 63 mg/dL (7-30); Carbon Dioxide* 20 mmol/L (20-32); Creatinine* 1.7 mg/dL (0.5-1.5); Est. Creatinine Clearance* 21.27; Estimated Glomerular Filt Rate 29 ml/min; Glucose* 82 mg/dL (60-115); Phosphorus* 3.4 mg/dL (2.5-4.5)
[2024-02-28 07:19] LABS: Magnesium* 1.9 mg/dL (1.5-2.6)
[2024-02-28] MEDS: predniSONE 1 MG TABLET 2 MG PO (07:39)
[2024-02-28 09:38] VITALS: PULSE 128
[2024-02-28] MEDS: DIGOXIN 250 MCG TABLET PO (09:38)
[2024-02-28] MEDS: allopurinoL 100 MG TABLET 200 MG PO (09:38)
[2024-02-28] MEDS: METOPROLOL TARTRATE 100 MG TABLET 50 MG PO (09:38)
[2024-02-28] MEDS: CYANOCOBALAMIN (VITAMIN B-12) 500 MCG TABLET 1000 MCG PO (09:38)
[2024-02-28] MEDS: SODIUM CHLORIDE 0.9 % (FLUSH) 10 ML SYRINGE 5 ML IVF (09:40)
--- NOTE | 2024-02-28 11:23 | PM.DS1 ---
DS: Providers Provider Date Seen: 02/28/24 Date of admission: 02/25/24 16:30 Primary care physician: Tamera Newton MD Admitting Clinician: Lucian Mccormick MD Consults: 02/25/24 16:30 Consult to Nutrition [CONS] Routine Comment: Reason for consult:: Miscellaneous Comment: Warfarin therapy Consult to Occupational Therapy [CONS] Routine Comment: Reason(s) for OT Consult:: Evaluate and Treat Any Restrictions?:: No Restrictions Consult to Physical Therapy [CONS] Routine Comment: Reason(s) for PT Consult:: Evaluate and Treat Any Restrictions?:: No Restrictions Attending Physician on discharge: Erlinda Reeves MD [facility] Date of Discharge: 02/28/24 DS: Diagnosis Discharge Diagnosis (1) Supratherapeutic INR: Status: Acute Problem details: -admitted with an INR of 14.37 -given vitamin K x2, covered with Lovenox bridge -restarted warfarin -discharge INR 2.4 -cardiology set goal INR at 2.5-3.5 (2) Chronic atrial fibrillation: Status: Acute Problem details: -November 2023; noted left atrial thrombus. cardioversion appt cancelled twice b/c of thrombus -warfarin preferred over DOAC b/c this is thought to be valvular AFIB -rate control in the setting of soft blood pressures was difficult. The initial diltiazem and metoprolol resulted in low pressure with not enough rate control. we held the amlodipine and lisinopril for hypotension and CHASITY, respectively. -digoxin started; held diltiazem and halved the metoprolol. (3) Mitral valve stenosis, severe: Status: Acute Problem details: has seen the valve clinic and they consulted that getting her back in sinus with cardioversion is the first step and then reassess valve function and effect on cardiac output. Cardioversion delayed x2 secondary to atrial thrombus (4) Thrombus of left atrial appendage: Status: Acute Problem details: -1st noticed on 01/24/2024 when patient presented for DC cardioversion and RAMEZ confirmed presence of left atrial thrombus. -noticed it again at time of 2nd DC cardioversion attempt on 02/18/2024, with RAMEZ demonstrating thrombus appearing larger in size and more organized than 01/24/2024. Thus DC cardioversion was not undertaken again. (5) Hypertension: Status: Chronic Problem details: multiple changes: holding amlodipine; lisinopril. reduced metoprolol to 50mg BID. (6) senior living current use of anticoagulant therapy: Status: Acute Problem details: b/c she has valvular etiology for AFIB (severe mitral stenosis) - WARFARIN, not ELIQUIS is preferred. GOAL 2.5-3.5 (7) Chronic HFrEF (heart failure with reduced ejection fraction): Status: Acute Problem details: - BNP about 10,000 on 02/25/2024 - repeat TTE on 02/25 to evaluate EF given concern for progressive tachycardia induced cardiomyopathy (poorly controlled a fib with RVR over the past few weeks) (8) Cardiomyopathy: Status: Acute Problem details: - suspect multifactorial: Tachycardia induced, valvular cardiomyopathy, hypertensive cardiomyopathy. - RAMEZ on 02/18/2024 indicates, left ventricular ejection fraction appears mild to moderately reduced. - TTE on 12/28/2023 estimates EF of 55-60%, mildly enlarged right ventricle with mildly reduced global systolic RV function, severe mitral stenosis with mean gradient of 17 mmHg at heart rate of 136 beats per minute, moderate tricuspid regurgitation, moderately increased estimated pulmonary pressures by tricuspid regurgitation velocity and right atrial pressure (40 mmHg plus right atrial pressure). (9) Acute on chronic kidney failure: Status: Acute Problem details: - creatinine rosa from baseline of 1.5-2.9 and BUN increased from 42 to 101 between 01/23/2024 and 02/25/2024 - urinalysis on 02/25/2024 appears benign - most likely the acute component is iatrogenic (Furosemide and Spironolactone) - possible concurrent cardiorenal syndrome given RAMEZ from 02/18/2024: decreased EF, A Fib w/RVR for several weeks now, inability to cardiovert 2/2 LA thrombus - Received gentle IVF bolus in ED - follow renal function, Is/Os, holding Spironolactone and Furosemide as of 02/25/24 - 1.7 on day of discharge (10) Hyponatremia: Status: Acute Problem details: - mild. following. (11) Hypothyroidism: Status: Chronic Problem details: stable DS: Summary Hospital Course Hospital Course: FINAL DIAGNOSIS/FOLLOW UP ISSUES: 1. Supratherapeutic INR. Unclear etiology. Patient was compliant with instructions. Reversed. Cover with Lovenox bridge. INR 2.4 on discharge. Instructions on Coumadin dosing and INR follow-up given. 2. Chronic AFib, with mitral valve stenosis, severe. Rate control was difficult in the setting of soft blood pressures. Ultimately digoxin, metoprolol used for adequate rate control. 3. CHASITY. Held lisinopril. Improved. 4. Chronic hypertension - in the setting of chronic AFib, RVR, CHASITY - she was discharged with her lisinopril and amlodipine held. Digoxin at 125 mcg daily, metoprolol at 50 mg b.i.d.. BRIEF HOSPITAL COURSE: Patient was admitted for 4 days. Synopsis of acute inpatient issues are outlined above. Chronic medical conditions with notable findings outlined above. Thankfully there were no complications with bleeding given the INR of 14.37. We reversed her coagulopathy with vitamin K. we bridged her with Lovenox given the atrial thrombus in AFib history. We restarted her warfarin. Her INR was 2.4 on discharge. She has a follow-up appointment with the INR clinic. Her rate control was difficult initially. Ultimately digoxin and metoprolol resulted in adequate rate control with normotension. DISCHARGE MEDICATIONS: See Reconciled list - SIGNIFICANT CHANGES: Hold lisinopril and amlodipine Start digoxin and continue decreased dose of metoprolol Continue warfarin as instructed Specific instructions to the patient and follow-up are outlined below. REVIEW OF SYSTEMS No new chest pain or dyspnea Pain controlled No voiding difficulties Tolerating diet challenge PHYSICAL EXAM: CONSTITUTIONAL: Stable. Agreeable to discharge. Resting comfortably. VITAL SIGNS: see record. HEENT: Normocephalic, atraumatic. PERRL, EOMI, conjunctivae pink, no scleral icterus. Ears and nose externally normal. Pharynx normal. NECK: No JVD. No carotid bruit, no thyromegaly, no adenopathy. CHEST: Clear to auscultation bilaterally. HEART: S1 and S2 normal, holosystolic murmur. Edema trace. ABDOMEN: Soft, nontender. Normal bowel sounds. MUSCULOSKELETAL: No gross joint deformity or swelling. NEURO: Cranial nerves intact. Grossly intact. No asymmetric findings. SKIN: No rashes, petechiae, concerning changes PSYCHIATRIC: Mood euthymic. DISPOSITION: Home with Time spent on discharge 37 minutes. Status at Discharge Functional status at discharge: uses cane/walker Overall status at discharge: patient is progressing back to baseline Time Spent with Patient Time attestation: Total time spent providing and/or coordinating discharge services: Exam Const: Vital Signs, click to edit/add: Vital Signs - 24 hr 02/27/24 15:05 02/27/24 15:30 02/27/24 15:30 Temperature Pulse Rate 122 H Pulse Rate [Pulse Oximeter] 129 H Respiratory Rate 20 20 Blood Pressure [Le ft Arm] Blood Pressure [Ri ght Arm] Pulse Oximetry 95 Oxygen Delivery Me thod Room Air 02/27/24 15:30 02/27/24 16:38 02/27/24 20:27 Temperature Pulse Rate 122 H Pulse Rate [Pulse Oximeter] 129 H 112 H Respiratory Rate 20 18 Blood Pressure [Le ft Arm] 101/65 Blood Pressure [Ri ght Arm] 121/83 Pulse Oximetry 95 97 Oxygen Delivery Me thod Room Air 02/27/24 20:37 02/27/24 22:33 02/27/24 22:55 Temperature Pulse Rate 112 H 88 Pulse Rate [Pulse Oximeter] Respiratory Rate 18 Blood Pressure [Le ft Arm] Blood Pressure [Ri ght Arm] Pulse Oximetry 97 Oxygen Delivery Me thod Room Air 02/27/24 22:56 02/28/24 00:15 02/28/24 02:38 Temperature 98.4 F Pulse Rate 39 L Pulse Rate [Pulse Oximeter] 91 26 L Respiratory Rate 16 Blood Pressure [Le ft Arm] Blood Pressure [Ri ght Arm] 104/69 Pulse Oximetry 96 Oxygen Delivery Me thod 02/28/24 03:15 02/28/24 07:00 02/28/24 07:00 Temperature Pulse Rate Pulse Rate [Pulse Oximeter] 103 H 82 Respiratory Rate 18 16 16 Blood Pressure [Le ft Arm] Blood Pressure [Ri ght Arm] 109/80 Pulse Oximetry 97 95 Oxygen Delivery Me thod Room Air Room Air 02/28/24 07:00 02/28/24 07:00 02/28/24 09:38 Temperature 98.3 F Pulse Rate 96 128 H Pulse Rate [Pulse Oximeter] 82 Respiratory Rate 16 Blood Pressure [Le ft Arm] 119/80 Blood Pressure [Ri ght Arm] Pulse Oximetry 95 Oxygen Delivery Me thod Room Air DS: Data Data Completed and Pending Labs on day of discharge: Labs from last 24 hours 02/28/24 02/27/24 02/27/24 06:18 12:58 05:56 WBC 8.12 RBC 3.07 L Hgb 10.3 L Hct 32.3 L MCV 105 H MCH 34 MCHC 32 Plt Count 132 L INR 2.40 H VBG pH 7.384 VBG pCO2 37 L VBG pO2 35.8 VBG HCO3 22 Sodium 134 L Potassium 5.0 Chloride 110 Carbon Dioxide 20 Anion Gap 4 L BUN 63 H Creatinine 1.7 H Estimated Creat Clear 21.27 Estimated GFR 29 Glucose 82 Calcium 9.0 Phosphorus 3.4 Magnesium 1.9 2.1 Troponin I < 0.01 L Albumin 3.2 L Lab Acknowledgement Test Added Discharge Plan Discharge Disposition: Home, Self-Care Date of Admission: 02/25/24 16:30 Attending Provider on Discharge: Erlinda Reeves Primary Care Provider: Tamera Newton Condition: Improved Anticipated Discharge Date/Time: 02/28/24 09:31 Discharge Medications: New metoprolol tartrate 100 mg Tablet 50 mg PO BID Qty: 30 0RF digoxin 125 mcg (0.125 mg) Tablet 125 mcg PO DAILY Qty: 30 0RF Continued allopurinol 100 mg tablet 200 mg PO QDAY spironolactone 25 mg tablet 12.5 mg PO DAILY warfarin 5 mg tablet 2.5 mg PO DAILY Protocol: Dose Management Condition: Sunday Dose/Route: 2.5 mg Instruction: 0.5 x 5 mg tablets Condition: Sunday Dose/Route: 2.5 mg Instruction: 0.5 x 5 mg tablets Condition: Sunday Dose/Route: 2.5 mg Instruction: 0.5 x 5 mg tablets Condition: Sunday Dose/Route: 2.5 mg Instruction: 0.5 x 5 mg tablets Condition: Dose/Route: 2.5 mg Instruction: 0.5 x 5 mg tablets Condition: Sunday Dose/Route: 2.5 mg Instruction: 0.5 x 5 mg tablets Condition: Sunday Dose/Route: 2.5 mg Instruction: 0.5 x 5 mg tablets Protocol Text: Adjustment Start Date: Sunday02/19/24 INR Value: 3.1 INR Date: 02/18/24 Recheck Date: 03/04/24 acetaminophen 500 mg capsule 1,000 mg PO QHS PRN furosemide 20 mg tablet 20 mg PO QAM prednisone 1 mg tablet 2 mg PO DAILY omeprazole 20 mg capsule,delayed release(DR/EC) 20 mg PO DAILY Qty: 90 0RF atorvastatin 40 mg tablet 40 mg PO .Bedtime Qty: 90 0RF levothyroxine 75 mcg tablet 75 mcg PO DAILY Qty: 90 0RF Discontinued mecobalamin (vitamin B12) 1,000 mcg tablet,chewable 1,000 mcg PO QDAY metoprolol tartrate 100 mg tablet 100 mg PO BID amlodipine 5 mg tablet 5 mg PO DAILY Qty: 90 0RF lisinopril 40 mg tablet 40 mg PO DAILY Qty: 90 0RF Discharge Orders: Discharge Order (Routine); Ordered 02/28/24 Ordered By: Erlinda Reeves Patient Education: Metoprolol (By mouth), Digoxin (By mouth) Additional Instructions: 1. Your lisinopril and amlodipine are on hold for now. Pleas take your blood pressure and pulse twice a day and write the numbers down. 2. Your AFIB medications and blood pressure medications are: Digoxin 125mcg qam, metoprolol 50mg BID. 3. Take 5mg of coumadin today (02/27) and tomorrow (02/28) and then reduce to 2.5mg for Sunday and Sunday (03/01 and 03/02) and then get your INR checked on Sunday the before you take the daily dose. Activity Level: Activity as Tolerated Discharge Diet: Regular Follow Up Appointments: Tamera Newton MD [Primary Care Provider] - 03/06/24 9:30 am ([facility] for post hospital follow-up. NEEDS AN INR APPT ON 03/03/24 @10:15am.) Forms: [employer] Info Instructions
--- NOTE | 2024-02-28 12:39 | PC.NURSE ---
Discharged to home today at 1200 accompanied by daughter. Patients IV removed intact. Patient's VSS, on RA, tolerating a reg diet. Patient denies N/V/SoB or pain. Patient signed belongings sheet and discharge. Patient verbalized understanding of discharge instructions.
== END 2024-02-28 12:00 | disposition home or self-care (01) | DRG 813 ==
LOC: ED 15:05 → MEDSURG 15:55
PROVIDERS: Family Medicine; Admitting Provider Internal Medicine; Emergency Provider Family Medicine; PCP Family Medicine; Visit Provider Internal Medicine
DX: D68.318 Other hemorrhagic disorder due to intrinsic circulating anticoagulants, antibodies, or inhibitors (principal); I48.20 Chronic atrial fibrillation, unspecified; N17.9 Acute kidney failure, unspecified; I13.0 Hypertensive heart and chronic kidney disease with heart failure and stage 1 through stage 4 chronic kidney disease, or unspecified chronic kidney disease; I43 Cardiomyopathy in diseases classified elsewhere; I50.22 Chronic systolic (congestive) heart failure; D68.32 Hemorrhagic disorder due to extrinsic circulating anticoagulants; I51.3 Intracardiac thrombosis, not elsewhere classified; N18.30 Chronic kidney disease, stage 3 unspecified; M35.3 Polymyalgia rheumatica; K21.9 Gastro-esophageal reflux disease without esophagitis; M06.9 Rheumatoid arthritis, unspecified; G25.81 Restless legs syndrome; E03.9 Hypothyroidism, unspecified; I45.10 Unspecified right bundle-branch block; E78.5 Hyperlipidemia, unspecified
CPT/HCPCS: 36415; 71045; 80048; 80053; 80069; 80076; 81001; 82550; 82803; 83605; 83735; 83880; 84100; 84132; 84443; 84484; 85025; 85027; 85610; 86140; 87086; 93005; 93308; 93321; 93325; 94761; 97112; 97116; 97162; 97165; 97530; 97535; 99285; A9270; J1650; J7030; J7512; Q9957

== ENCOUNTER 2024-03-03 10:25 | Outpatient (CLI) | payer MEDICARE, OTHER, SELFPAY | END 2024-03-03 10:26 | disposition home or self-care (01) | LOC: NFLDREF 03-05 03:58 | PROVIDERS: PCP Family Medicine; Referring Provider Family Medicine; Visit Provider Family Medicine | DX: Z79.01 Long term (current) use of anticoagulants (principal) | CPT/HCPCS: 85610 ==

== ENCOUNTER 2024-03-07 09:40 | Outpatient (CLI) | payer MEDICARE, OTHER, SELFPAY ==
--- OUTSIDE RECORDS SUMMARY | 2024-03-10 09:32 | XMS_ITS | Continuity of Care Document ---
Author Organization [facility] Address [address] [place] [address] Phone Care Team Providers Care Final Tester Name Role Phone Unavailable Unavailable Unavailable Allergies, [...] Copied on Encounter [facility], [address], [place], [id number] , [place] tel:[phone] [facility] No Information May-2 No Information Office/Outpat ient Visit,Est, Mod [facility], [address], [place], [id number] , [place] tel:[phone] [facility] Other idiopathic scoliosis, lumbar region Rafa Miller. [facility], [address], [facility] [address], [place], [place], [id number], [place]. tel:[phone] Referring Provider: Terry Grant, [facility] [address] [place], [address]. tel:[phone] Office/Outpat ient Visit,New, Mod [facility], [address], [place], [place], [id number] , [place] tel:[phone] [facility] Spinal stenosis, lumbar region with neurogenic claudication Spondylolysi s, lumbar regionOther idiopathic scoliosis, lumbar region 1 No Information Referring Provider: Terry Grant, [facility] [address] [place], [address]. tel:[phone] Family History Family Member Type Diagnosis Age At Onset No Information Payers Payer name Insurance type Covered libertarian ID Authorzaydaa brigette(s) Medicare [id number] For Life/Retired Hunter [id number] Social History Type Description Quantity Date Captured [...]
--- OUTSIDE RECORDS SUMMARY | 2024-03-10 09:33 | XMS_ITS | Encounter Summary ---
Author Organization [facility] Address [address] [place] [address] Care Team Providers Care [employer] Name Role Phone Clinician, Not Found MD Primary Care Provider Un available Reason for Visit * Reason Comments Follow-up Encounter Details Date Type Department Care Team (Late st Contact Info) Description 12/18/2023 2:30 PM CDT Office Visit [facility] [address] [place] [address] Denise Davila MD [facility] [place], [place] [phone] Chronic tophaceous gout (Primary Dx); Osteoarthritis of [...] with her primary care provider in the [facility] system. She was told to have elevated [...] Team (Late st Contact Info) Description 04/25/2024 12:[address] [facility] [address] [place], [place] [phone] Denise Davila MD [address] [place] [address] 06/24/2024 12:00 PM SENIOR ADVOCATE Appointment [facility] [address] [place], [place] [address] Denise Davila MD [address] [place], [place] [phone] documented as of this encounter Results * CCP Antibody (12/18/2023 3:21 PM CDT) [facility] Anti-CCP Antibody 0.5 0.0 - 6.9 U/mL 12/19/2023 1:00 PM CDT [facility] Anti-CCP Antibody Interpretation Negative Negative 12/19/2023 1:00 PM CDT [facility] Blood Venipuncture / Unknown 12/18/2023 3:21 PM CDT 12/18/2023 3:21 PM CDT Narrative [facility] - 12/19/2023 1:00 PM CDT This result was obtained with the [employer] 250. Quantitative results cannot be directly compared to other manufacturers' methods. Denise Davila MD LAB_1 [facility] [address] * Rheumatoid Factor, Quant (12/18/2023 3:21 PM CDT) [facility] Rheumatoid Factor, Quantitative <15 <=30 IU/mL 12/18/2023 9:03 PM CDT [facility] Blood Venipuncture / Unknown 12/18/2023 3:21 PM CDT 12/18/2023 3:21 PM CDT Denise Davila MD LAB_1 [facility] [address] [place], [place] [address] * Sedimentation Rate (ESR) (12/18/2023 3:21 PM CDT) Pathologist [facility] Sedimentation Rate 12 0 - 20 mm/hr 12/18/2023 3:55 PM CDT [facility] Blood Venipuncture / Unknown 12/18/2023 3:21 PM CDT 12/18/2023 3:21 PM CDT Denise Davila MD LAB_1 Performing Organization Address [facility]/ZIP Co de Phone Number [address] [phone] * (ABNORMAL) C-Reactive Protein (12/18/2023 3:21 PM CDT) Pathologist [facility] C-Reactive Protein 1.4(H) 0.0 - 0.5 mg/dL 12/18/2023 5:10 PM CDT [facility] Blood Venipuncture / Unknown 12/18/2023 3:21 PM CDT 12/18/2023 3:21 PM CDT Denise Davila MD LAB_1 Performing Organization Address [facility]/ZIP Co de Phone Number [address] [phone] * (ABNORMAL) Protein ELP (Serum) (12/18/2023 3:21 PM CDT) Pathologist [facility] Total Protein 6.9 6.4 - 8.3 g/dL 12/20/2023 10:36 AM CDT [facility] Albumin 4.3 3.4 - 4.8 g/dL 12/20/2023 10:36 AM CDT [facility] Alpha 1 0.4 0.2 - 0.5 g/dL 12/20/2023 10:36 AM CDT [facility] Alpha 2 0.9 0.5 - 1.1 g/dL 12/20/2023 10:36 AM CDT [facility] Beta 0.7 0.6 - 1.1 g/dL 12/20/2023 10:36 AM CDT [facility] Gamma 0.6(L) 0.7 - 1.6 g/dL 12/20/2023 10:36 AM CDT [facility] Monoclonal Vahid 0.0 <=0.0 g/dL 12/20/2023 10:36 AM CDT [facility] Interpretation Borderline hypogammaglobuli nemia. Consider urine immunofixation to rule out Bence Orozco proteinuria. 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
--- OUTSIDE RECORDS SUMMARY | 2024-03-10 09:33 | XMS_ITS | Clinical Summary ---
Author Organization [facility] Address [place], [place] [address] Care Team Providers Care Application Development Liaison Name Role Phone Tamera Jimenez MD Primary Care Provider + Allergies Active Allergy Reactions Criticality Noted Date Comments Propoxyphene Other - Describe In Comment Field Medium 10/21/1999 Lethargy Sulindac Hives High 06/03/2003 Medications Medication Sig Dispensed Refills Start Date End Date Status lisinopril (PRINIVIL; ZESTRIL) 40 mg tablet Take 1 tablet by mouth once daily. 0 5 Active omeprazole (PRILOSEC) 20 mg Delayed-Release capsule Take 1 capsule by mouth once daily before a meal. 0 5 Active amLODIPine (NORVASC) 5 mg tablet Take 5 mg by mouth once daily. 7 Active atorvastatin (LIPITOR) 40 mg tablet Take 40 mg by mouth at bedtime. 0 9 Active levothyroxine (SYNTHROID) 75 mcg tablet Take 1 Tablet by mouth before breakfast. 2 Active predniSONE (DELTASONE) 5 mg tablet Take 17.5 mg by mouth once daily. 2 Active allopurinoL (ZYLOPRIM) 100 mg tablet Take 200 mg by mouth once daily. Active acetaminophen (TYLENOL EXTRA STRGTH) 500 mg tablet Take 1,000 mg by mouth at bedtime. Max acetaminophen dose: 4000mg in 24 hrs. Active durable medical equipment (DME)Indications :Ulcer of right foot with fat layer exposed (HC) [id number] Squared Toe Post OP Shoe, Small 1 Each 4 Active cyanocobalamin (Vitamin B-12) 100 mcg tablet Take 100 mcg by mouth once daily. Active calcium carbonate-vitami n D 250 mg-3.125 mcg (125 unit) tab Take 1 Tablet by mouth two times daily. 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 60 Tablet 1 4 Active enoxaparin (LOVENOX) 80 mg/0.8 mL injectionIndicat ions:Left atrial thrombus Inject 70 mg subcutaneous, daily evening until your INR is greater than 2.0. 5 mL 4 Active furosemide (LASIX) 20 mg tabletIndication s:Acute systolic congestive heart failure (HC) Take 1 Tablet (20 mg) by mouth once daily in the morning. Take an additional 1 tablet for weight gain of 3 lbs in 24 hours, or 5 lbs in 1 week 30 Tablet 1 4 Active spironolactone (ALDACTONE) 25 mg tabletIndication s:Acute systolic congestive heart failure (HC) Take 0.5 Tablets (12.5 mg) by mouth once daily in the morning. 30 Tablet 1 4 Active warfarin (COUMADIN) 5 mg tabletIndication s:Left atrial thrombus Take 1 Tablet (5 mg) by mouth once daily. Until directed by anticoagulation clinic. 14 Tablet 4 Active warfarin (COUMADIN) 5 mg tabletIndication s:Left atrial thrombus Take 1 Tablet (5 mg) by mouth once daily. Until directed by anticoagulation clinic. 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/10/2021 Hypertension Hypothyroidism Hypercholesteremia HLD (hyperlipidemia) Neuropathy Rheumatoid arthritis RLS (restless legs syndrome) Encounters Date Type Department Care Team Description 02/26/2024 2:00 PM CDT Ancillary Procedure [facility] & [address] [address] 02/25/2024 Telephone [facility] [address], [place] [address] Omid Palacios MD 02/21/2024 Telephone [facility] [address] [phone] Moriah Zapata PA Care Coordination 02/18/2024 2:29 PM CDT Anesthesia Event [facility] [address], [place] [address] Edmar Hernandez MD 02/18/2024 12:22 PM CDT - 02/18/2024 4:17 PM CDT Hospital Encounter [facility] [address] [place] [address] Mike Armando PA Kroll, ERICKSON Carvajal Mark L, MD 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); Left atrial thrombus Discharge Disposition: Home Self Care 02/18/2024 Travel 01/24/2024 12:43 PM CDT Anesthesia Event [facility] [address], [place] [address] Dimitri Stahl MD Westen, Megan Joy, MD 01/24/2024 9:47 AM CDT - 01/28/2024 2:25 PM CDT Hospital Encounter [facility] [address] [place] [address] Vu Torres MD [facility], [facility] Of Yordan Gonzalez MD Barnard, Kayla Julia, PA Lefebvre, MD Tanisha Rowley Hani, MBBS Taylor, Phillip Norman, MD Mickley, Deborah Elaine, CRNA Acute systolic congestive heart failure (HC) (Primary Dx); Mitral valve stenosis, unspecified etiology; 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 [address] [place] [address] Vu Torres MD 12/28/2023 9:00 AM CDT Ancillary Procedure [facility] [address] [place] [address] 12/12/2023 11:30 AM CDT Office Visit [facility] [address] [place] [address] Toney Winchester, DPM Ulcer (Follow up-right foot) 12/12/2023 Travel from Last 3 Months Immunizations Name [...] Sign Reading Time Taken Comments Blood Pressure 109/79 02/18/2024 4:00 PM CDT Pulse 138 02/18/2024 4:00 PM CDT Temperature 36.4 ??C (97.5 ??F) 02/18/2024 2:45 PM CD T Respiratory Rate 16 02/18/2024 4:00 PM CDT Oxygen Saturation 91% 02/18/2024 4:00 PM CDT Inhaled Oxygen Concentration - - Weight 64.4 kg (142 lb) 02/18/2024 12:56 PM CDT Height 162.6 cm (5' 4) 02/18/2024 12:56 PM CDT Body Mass Index 24.37 02/18/2024 12:56 PM CDT Plan of Treatment Upcoming Encounters Date Type Department Care Team (Late st Contact Info) Description 03/25/2024 11:45 AM CDT Appointment [facility] [address] [place] [address] 03/25/2024 12:00 PM CDT Appointment [facility] [address] [place] [address] Health Maintenance Due Date Last Done Comments [...] 09/24/2019, 03/26/2009 Medical Devices Implanted Type Area City Bus Driver Device Identifier Shelf Expiration Date Model / Serial / Lot Simplex P Bone Cement - Half Dose Implanted:Qty: 2 on 10/18/2021 by Kevin Hogue MD at [facility] Left: Knee [employer] 07/12/2023 / [id number] / [id number] Tri[employer]lon Femoral Posterior Augment Implanted:Qty: 1 on 10/18/2021 by Kevin Hogue MD at [facility] Left: Knee [employer] 06/01/2025 / [id number]-A-400 / [id number] Simplex P Bone Cement Full Dose Implanted:Qty: 2 on 10/18/2021 by Kevin Hgoue MD at [facility] Left: Knee [employer] 09/12/2023 / [id number] / [id number] Tri[employer]lon Fluted Stem - Tibia Implanted:Qty: 1 on 10/18/2021 by Kevin Hogue MD at [facility] Left: Knee [employer] 10/09/2025 / [id number] / [id number] [employer] Tritanium Tibial Symmetric Cone Augment Implanted:Qty: 1 on 10/18/2021 by Kevin Hogue MD at [facility] Left: Knee [employer] 05/04/2026 / [id number] / [id number] Triathlon Total Knee [place] Tibial Baseplate Implanted:Qty: 1 on 10/18/2021 by Kvein Hogue MD at [facility] Left: Knee [employer] 12/19/2025 / [id number] / [id number] [employer]lon Fluted Stem - Femur Implanted:Qty: 1 on 10/18/2021 by Kevin Hogue MD at [facility] Left: Knee [employer] 06/15/2025 / [id number] / [id number] [employer] Total Stabilizer Femoral Component Implanted:Qty: 1 on 10/18/2021 by Kevin Hogue MD at [facility] Left: Knee [employer] 01/16/2026 / [id number] / [id number] Triathlon X3 Total Stablizer+ Tibial Insert Implanted:Qty: 1 on 10/18/2021 by Kevin Hogue MD at [facility] Left: Knee [employer] 08/31/2026 / [id number] -[id number] / [id number] [employer]athlon Femoral Posterior Augment Implanted:Qty: 1 on 10/18/2021 by Kevin Hogue MD at [facility] Left: Knee [employer] 09/05/2025 / [id number]-A-[id number] / [id number] Procedures Procedure Name Priority Date/Time Associated Diagnosis Comments ECHO TTE LIMITED W CONTRAST Routine 02/26/2024 3:22 PM CDT Atrial fibrillation with rapid ventricular response (HC) Mitral stenosis ECHO RAMEZ WO CONTRAST W COLOR W LTD DOPPLER Routine 02/18/2024 3:01 PM CDT 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 AORTIC VALVE MEAN PG 6 mmHg EJECTION FRACTION 56 % PEAK TR VELOCITY 2.6 m/s LVEDD 3.9 cm EJECTION FRACTION 45 - 50% Anatomical Region Laterality Modality Ultrasound 02/26/2024 1:57 PM CDT Narrative 02/26/2024 3:54 PM CDT ECHOCARDIOGRAM ABIMBOLA SAMUELS ? Accession#: ?? [id number] : ?1940 83 years Study Date: ?? 02/26/2024 1:57:08 PM Gender: F ?BP: ? 89/52 mmHg Height: 163.00 cm ?BSA: ?1.76 m? ? ? Weight: 70.00 kg ? Tech: ? MRC ? Referring MD: JAROCHO MCCORMICK Site: ? [facility] Reading Location: [facility] Patient Location: Inpatient. Procedure: Color Doppler, Limited Spectral Doppler and Limited Echo w/ Contrast. Indication for study: Afib RVR Cardiac Rhythm: Bradycardia.Study quality: Good. Final Impressions: Limited Echocardiogram performed 1. Bradycardia 44-60 bpm. 2. Normal LV size, mildly reduced global systolic function with an estimated EF of 45 - 50%. 3. Right ventricular cavity size is normal, global systolic RV function is mildly reduced. 4. The aortic valve is sclerotic and not well visualized, no stenosis and trivial regurgitation. 5. The mitral valve is sclerotic, mild mitral regurgitation. Mean gradient 5 mmHg at 48 bpm. 6. Moderately enlarged left atrium. 7. Moderate tricuspid regurgitation. RVSP 28 mmHg + RAP. 8. Echo contrast was administered to enhance visualization of all left ventricular segments. Chamber Sizes and Function Normal left ventricular size, mildly reduced global systolic function with an estimated EF of 45 - 50%. Left atrial size is moderately enlarged. Right ventricular cavity size is normal, global systolic RV function is mildly reduced. RV wall thickness is normal. The right atrium is mildly enlarged. Right atrial volume index is 23 ml/m? ? ?. Right atrial area is 19 cm? ? ?. The pulmonary artery is of normal size and origin. Valves, RV Pressures and Diastolic Function The aortic valve is sclerotic and not well visualized , no stenosis and trivial regurgitation. The mitral valve is sclerotic, mild mitral regurgitation. The mitral valve peak velocity is 1.83 m/s and the mean gradient is 4.7 mmHg. Mitral annular calcification is present. The tricuspid valve is normal in structure. Tricuspid regurgitation is moderate. The tricuspid regurgitant velocity is 2.6 m/s, the estimated right ventricular systolic pressure is 28 mmHg plus right atrial pressure. The pulmonic valve is normal. No pulmonic regurgitation is present on color flow. Masses, Effusion, Shunts There is no pericardial effusion. MEASUREMENTS AND CALCULATIONS 2-D Measurements and LV Function: LVID (d) 3.9 cm LV FS% (2D) ?? 25 % LVID (s) 3.0 cm LVOT diameter 2.0 cm IVS (d) ??1.0 cm HR ?44 bpm LVPW (d) 1.0 cm LA Vol index ??65 ml/m2 Ao Sinus 2.4 cm RA Vol index ??23 ml/m2 Asc Ao ?? 3.0 cm RA area ? 19 cm? ? ? LA ? 4.6 cm RV Max 4C (d) 3.4 cm Aortic Valve: Vmax ? 1.5 m/s ??VIKTORIYA (V) ?? 2.06 cm? ? ? VTI ?0.41 m ?? VIKTORIYA (I) ?? 1.67 cm? ? ? LVOT V max 1.0 m/s ??Max PG ?9 mmHg LVOT VTI ?? 0.22 m ?? Mean PG ?? 6 mmHg SV ? 68 ml ?Dim Index 0.53 SV index ?? 39 ml/m? ? ? CO ?3.0 l/min ?CI ?1.7 l/min/m? ? ? Mitral Valve: MV Mean G 5 mmHg MV VTI ?0.51 m Tricuspid Valve and estimated PA pressures: TR Vmax 2.6 m/s TAPSE 1.4 cm TR maxG 28 mmHg Pulmonic Valve: PV AT 78 msec Contrast documentation: 5ML ml diluted Definity, lot #[id number] was administered peripherally to enhance visualization of all left ventricular segments. . This study was interpreted by an [facility] accredited facility. CC: HIM (med records) [facility], Med/Surg - IP [facility]. ??Final ?? Procedure Note Criselda Escobar MD - 02/26/2024 ECHOCARDIOGRAM ABIMBOLA SAMUELS : 1940 83 years Study Date: 02/26/2024 1:57:08 PM Gender: F BP: 89/52 mmHg Height: 163.00 cm BSA: 1.76 m? ? ? Weight: 70.00 kg Tech: [facility] Referring MD: JAROCHO MCCORMICK Site: [facility] Reading Location: [facility] Patient Location: Inpatient. Procedure: Color Doppler, Limited Spectral Doppler and Limited Echo w/Contrast. Indication for study: Afib RVR Cardiac Rhythm: Bradycardia.Study quality: Good. Final Impressions: Limited Echocardiogram performed 1. Bradycardia 44-60 bpm. 2. Normal LV size, mildly reduced global systolic function with anestimated EF of 45 - 50%. 3. Right ventricular cavity size is normal, global systolic RV functionis mildly reduced. 4. The aortic valve is sclerotic and not well visualized, no stenosis andtrivial regurgitation. 5. The mitral valve is sclerotic, mild mitral regurgitation. Meangradient 5 mmHg at 48 bpm. 6. Moderately enlarged left atrium. 7. Moderate tricuspid regurgitation. RVSP 28 mmHg + RAP. 8. Echo contrast was administered to enhance visualization of all leftventricular segments. Chamber Sizes and Function Normal left ventricular size, mildly reduced global systolic function withan estimated EF of 45 - 50%. Left atrial size is moderately enlarged.Right ventricular cavity size is normal, global systolic RV function ismildly reduced. RV wall thickness is normal. The right atrium is mildlyenlarged. Right atrial volume index is 23 ml/m? ? ?. Right atrial area is 19cm? ? ?. The pulmonary artery is of normal size and origin. Valves, RV Pressures and Diastolic Function The aortic valve is sclerotic and not well visualized , no stenosis andtrivial regurgitation. The mitral valve is sclerotic, mild mitralregurgitation. The mitral valve peak velocity is 1.83 m/s and the meangradient is 4.7 mmHg. Mitral annular calcification is present. Thetricuspid valve is normal in structure. Tricuspid regurgitation ismoderate. The tricuspid regurgitant velocity is 2.6 m/s, the estimatedright ventricular systolic pressure is 28 mmHg plus right atrial pressure.The pulmonic valve is normal. No pulmonic regurgitation is present oncolor flow. Masses, Effusion, Shunts There is no pericardial effusion. MEASUREMENTS AND CALCULATIONS 2-D Measurements and LV Function: LVID (d) 3.9 cm LV FS% (2D) 25 % LVID (s) 3.0 cm LVOT diameter 2.0 cm IVS (d) 1.0 cm HR 44 bpm LVPW (d) 1.0 cm LA Vol index 65 ml/m2 Ao Sinus 2.4 cm RA Vol index 23 ml/m2 Asc Ao 3.0 cm RA area 19 cm? ? ? LA 4.6 cm RV Max 4C (d) 3.4 cm Aortic Valve: Vmax 1.5 m/s VIKTORIYA (V) 2.06 cm? ? ? VTI 0.41 m VIKTORIYA (I) 1.67 cm? ? ? LVOT V max 1.0 m/s Max PG 9 mmHg LVOT VTI 0.22 m Mean PG 6 mmHg SV 68 ml Dim Index 0.53 SV index 39 ml/m? ? ? CO 3.0 l/min CI 1.7 l/min/m? ? ? Mitral Valve: MV Mean G 5 mmHg MV VTI 0.51 m Tricuspid Valve and estimated PA pressures: TR Vmax 2.6 m/s TAPSE 1.4 cm TR maxG 28 mmHg Pulmonic Valve: PV AT 78 msec Contrast documentation: 5ML ml diluted Definity, lot #[id number] wasadministered peripherally to enhance visualization of all left ventricularsegments. . This study was interpreted by an [facility] accredited facility. CC: HIM (med records) [facility], Med/Surg - IP [facility]. Final Jarocho Mccormick MD ECHO ORD * ECHO RAMEZ WO CONTRAST W COLOR W LTD DOPPLER (02/18/2024 3:01 PM CDT) Only the most recent of2 resultswithin the time period is included. Anatomical Region Laterality Modality Ultrasound 02/18/2024 2:12 PM CDT Narrative 02/18/2024 3:32 PM CDT TRANSESOPHAGEAL ECHOCARDIOGRAM ABIMBOLA SAMUELS ? Accession#: ?? [id number] : ?1940 83 years Study Date: ?? 02/18/2024 2:12:35 PM Gender: F ?BP: ? 69/45 mmHg Height: 163.00 cm ?BSA: ?1.69 m? ? ? Weight: 64.00 kg ? Tech: ? CJG ? Referring MD: MIKE ARMANDO Site: ? [facility] Reading Location: [facility] IP Patient Location: Inpatient. Procedure: RAMEZ, Color Doppler and Limited Spectral Doppler. Indication for study: DCCV Cardiac Rhythm: Atrial fibrillation.Study quality: Fair. Final Impressions: 1. Limited RAMEZ to evaluate left atrial appendage. 2. Visually, LVEF appears mild to moderately reduced. 3. Thrombus present in left atrial appendage. 4. When compared to prior RAMEZ, thrombus appears larger in size and more orgainzed. Procedure comments: Indications, goals, risks and alternatives of the procedure were discussed with the patient and informed consent was obtained. The patient received general anesthesia. See procedural record for anesthesia details. Prior to performance of procedure, time out was called to accurately identify the patient and procedure. The Foxtrot probe was passed without difficulty. RAMEZ, Color Doppler and Limited Spectral Doppler was performed. The patient developed no apparent complications during the procedure. Estimated Blood Loss: 0 ml Chamber Sizes and Function Not well visualized left ventricular size, moderate decreased global systolic function. Left atrial size is moderately enlarged. The left atrial appendage is well visualized and there is evidence of thrombus present. Not well visualized left atrial appendage flow velocities. Right ventricular cavity size is not well visualized, global systolic RV function is not evaluated. The right atrium is moderately enlarged. The pulmonary artery is not well visualized. The sinue of Valsalva is not evaluated. The ascending aorta is not evaluated. Aortic arch is not evaluated. Descending aorta is not evaluated. Valves, RV Pressures and Diastolic Function The aortic valve is not well visualized , not evaluated for stenosis and trivial regurgitation. The mitral valve is degenerative, trace mitral regurgitation. Likely mild stenosis. Average mean gradient ~4 mmHg at HR 91 BPM. The tricuspid valve is not well visualized. Tricuspid regurgitation is regurgitation is not evaluated. The pulmonic valve is not well visualized. Unable to determine pulmonary regurgitation. Masses, Effusion, Shunts There is no pericardial effusion. Atrial septum is intact. Agitated saline injection not done. MEASUREMENTS AND CALCULATIONS 2-D Measurements and LV Function: HR 152 bpm . This study was interpreted by an [facility] accredited facility. ??Final ?? Procedure Note Robert Dumont MD - 02/18/2024 TRANSESOPHAGEAL ECHOCARDIOGRAM ABIMBOLA SAMUELS : 1940 83 years Study Date: 02/18/2024 2:12:35 PM Gender: F BP: 69/45 mmHg Height: 163.00 cm BSA: 1.69 m? ? ? Weight: 64.00 kg Tech[place] [facility] Referring MD: MIKE ARMANDO Site: [facility] Reading Location: [facility] Patient Location: Inpatient. Procedure: RAMEZ, Color Doppler and Limited Spectral Doppler. Indication for study: DCCV Cardiac Rhythm: Atrial fibrillation.Study quality: Fair. Final Impressions: 1. Limited RAMEZ to evaluate left atrial appendage. 2. Visually, LVEF appears mild to moderately reduced. 3. Thrombus present in left atrial appendage. 4. When compared to prior RAMEZ, thrombus appears larger in size and moreorgainzed. Procedure comments: Indications, goals, risks and alternatives of theprocedure were discussed with the patient and informed consent wasobtained. The patient received general anesthesia. See procedural recordfor anesthesia details. Prior to performance of procedure, time out wascalled to accurately identify the patient and procedure. The Foxtrot probewas passed without difficulty. RAMEZ, Color Doppler and Limited SpectralDoppler was performed. The patient developed no apparent complicationsduring the procedure. Estimated Blood Loss: 0 ml Chamber Sizes and Function Not well visualized left ventricular size, moderate decreased globalsystolic function. Left atrial size is moderately enlarged. The leftatrial appendage is well visualized and there is evidence of thrombuspresent. Not well visualized left atrial appendage flow velocities. Rightventricular cavity size is not well visualized, global systolic RVfunction is not evaluated. The right atrium is moderately enlarged. Thepulmonary artery is not well visualized. The sinue of Valsalva is notevaluated. The ascending aorta is not evaluated. Aortic arch is notevaluated. Descending aorta is not evaluated. Valves, RV Pressures and Diastolic Function The aortic valve is not well visualized , not evaluated for stenosis andtrivial regurgitation. The mitral valve is degenerative, trace mitralregurgitation. Likely mild stenosis. Average mean gradient ~4 mmHg at HR91 BPM. The tricuspid valve is not well visualized. Tricuspidregurgitation is regurgitation is not evaluated. The pulmonic valve is notwell visualized. Unable to determine pulmonary regurgitation. Masses, Effusion, Shunts There is no pericardial effusion. Atrial septum is intact. Agitated salineinjection not done. MEASUREMENTS AND CALCULATIONS 2-D Measurements and LV Function: HR 152 bpm . This study was interpreted by an [facility] accredited facility. Final Mike SHORT ECHO ORD * (ABNORMAL) PROTIME-INR (02/18/2024 1:45 PM CDT) Only the most recent of6 resultswithin the time period is included. INR 3.1(H) <1.3 02/18/2024 2:04 PM CDT [facility] PROTIME 33.9(H) 10.3 - 12.3 sec 02/18/2024 2:04 PM CDT [facility] Blood BLOOD SPECIMEN / Unknown Non-Lab Venipuncture / Unknown 02/18/2024 1:45 PM CDT 02/18/2024 1:51 PM CDT Narrative [facility] - 02/18/2024 2:04 PM CDT ?Therapeutic Range 2.0-3.0 for most anticoagulated [...] seconds if the patient is on UFH. Moriah SHORT HEMATOLOGY Performing Organization Address [facility] de Phone Number [facility] [address] [place] [address], [place] * POTASSIUM,ISTAT (02/18/2024 1:26 PM CDT) Only the most recent of2 resultswithin the time period is included. POTASSIUM, POCT 4.9 3.5 - 5.0 mmol/L 02/18/2024 1:48 PM CDT [facility] Blood BLOOD SPECIMEN / Unknown 02/18/2024 1:26 PM CDT 02/18/2024 1:48 PM CDT Mike SHORT CHEMISTRY Performing Organization Address [facility] Co de Phone Number [facility] [address] [place] [id number], [place] * EKG 12 LEAD (02/18/2024 12:57 PM CDT) Only the most recent of2 resultswithin the time period is included. Interpretation Atrial fibrillation with rapid ventricular response with premature ventricular or aberrantly conducted complexes Right bundle branch block T wave abnormality, consider inferolateral ischemia Abnormal ECG When compared with ECG of 24-Jan-2024 10:11, No significant change was found [facility] NOW Ventricular Rate 135 BPM BEYOND NOW Atrial Rate BPM BEYOND NOW P-R Interval ms BEYOND NOW QRS Duration 130 ms BEYOND NOW QT 342 ms BEYOND NOW QTc 513 ms BEYOND NOW P Nicholson degrees BEYOND NOW R Nicholson 63 degrees BEYOND NOW T Nicholson -37 degrees BEYOND NOW 02/18/2024 12:5 7 PM CDT 02/18/2024 8:12 PM CDT Narrative [facility] - 02/18/2024 8:12 PM CDT Test Indication: PRE DCCV Moriah SHORT EKG ORD Performing Organization Address City/[facility]/ZIP Co de Phone Number [facility] NOW [place], [place] * SCAN-CARDIAC STRIP (01/28/2024 9:22 AM CDT) Scanner OTHER * (ABNORMAL) PLATELET COUNT (01/28/2024 5:39 AM CDT) [facility] PLATELET COUNT 151 140 - 440 thou/cu mm 01/28/2024 6:47 AM CDT [facility] [facility] MPV 13.3(H) 6.5 - 11.0 fL 01/28/2024 6:47 AM CDT [facility] Blood BLOOD SPECIMEN / Unknown Venipuncture / Unknown 01/28/2024 5:39 AM CDT 01/28/2024 6:38 AM CDT Joshua Boykin NP HEMATOLOGY [facility] [address] [place] [address], * POTASSIUM (01/28/2024 5:39 AM CDT) Only the most recent of2 resultswithin the time period is included. Pathologist [facility] POTASSIUM 3.7 3.5 - 5.1 mmol/L 01/28/2024 7:59 AM CDT [facility] Blood BLOOD SPECIMEN / Unknown Venipuncture / Unknown 01/28/2024 5:39 AM CDT 01/28/2024 6:38 AM CDT Anais SHORT CHEMISTRY Performing Organization Address [facility]/ZIP Co de Phone Number [facility] [address] [address], [place] * (ABNORMAL) CREATININE (01/28/2024 5:39 AM CDT) Only the most recent of3 resultswithin the time period is included. Pathologist [facility] eGFR 34(L) >90 mL/min/1.7 3m2 01/28/2024 7:59 AM CDT [facility] Comment:As of 2021, eG FR is calculated by the CKD-EPI creatinine equation without race adjustment. ??eGFR can be influenced by muscle mass, exercise, and diet. ??The reported eGFR is an estimation only and is only applicable if the renal function is stable. CREATININE 1.51(H) 0.50 - 0.90 mg/dL 01/28/2024 7:59 AM CDT [facility] Blood BLOOD SPECIMEN / Unknown Venipuncture / Unknown 01/28/2024 5:39 AM CDT 01/28/2024 6:38 AM CDT Anais SHORT CHEMISTRY Performing Organization Address City/[facility]/ZIP Co de Phone Number [facility] [address] [place] [address], [place] * MAGNESIUM (01/28/2024 5:39 AM CDT) Only the most recent of3 resultswithin the time period is included. Pathologist [facility] MAGNESIUM 1.8 1.6 - 2.4 mg/dL 01/28/2024 10:02 AM CDT [facility] Blood BLOOD SPECIMEN / Unknown Venipuncture / Unknown 01/28/2024 5:39 AM CDT 01/28/2024 6:38 AM CDT Anais SHORT CHEMISTRY [facility] [address] [place] [address], * SCAN-CARDIAC STRIP (01/27/2024 9:10 PM CDT) Scanner OTHER * SCAN-CARDIAC STRIP (01/27/2024 10:50 AM CDT) Scanner OTHER * SCAN-CARDIAC STRIP (01/26/2024 11:01 PM CDT) Scanner OTHER * SCAN-CARDIAC STRIP (01/26/2024 9:41 AM CDT) Scanner OTHER * SCAN-CARDIAC STRIP (01/25/2024 8:05 PM CDT) Scanner OTHER * SCAN-CARDIAC STRIP (01/25/2024 8:42 AM CDT) Scanner OTHER * LIPID PANEL W REFLEX MEASURED LDL (01/25/2024 5:56 AM CDT) [facility] CHOLESTEROL,TOTAL 174 100 - 199 mg/dL 01/25/2024 11:36 AM CDT [facility] Comment: Cholesterol, Total Reference Ranges Desirable <200 mg/dL Borderline 200-239 mg/dL High >=240 mg/dL TRIGLYCERIDES 114 <150 mg/dL 01/25/2024 11:36 AM CDT [facility] HDL CHOLESTEROL 58 >40 mg/dL 11:36 AM CDT [facility] NON-HDL CHOLESTEROL 116 <145 mg/dl 01/25/2024 11:36 AM CDT [facility] CHOL/HDL RATIO 3.00 <4.50 01/25/2024 11:36 AM CDT [facility] LDL CHOLESTEROL 93 <=130 mg/dL 01/25/2024 11:36 AM CDT [facility] VLDL CHOLESTEROL 23 <=30 mg/dL 01/25/2024 11:36 AM CDT [facility] PROVIDER ORDERED STATUS RANDOM 01/25/2024 11:36 AM T [facility] Blood BLOOD SPECIMEN / Unknown Venipuncture / Unknown 01/25/2024 5:56 AM CDT 01/25/2024 6:13 AM CDT Akosua Blanco NP CHEMISTRY [facility] [address] [place] [address], * (ABNORMAL) BASIC METABOLIC PANEL (01/25/2024 5:56 AM CDT) Only the most recent of2 resultswithin the time period is included. SODIUM 144 136 - 145 mmol/L 01/25/2024 6:38 AM T [facility] POTASSIUM 4.2 3.5 - 5.1 mmol/L 01/25/2024 6:38 AM T [facility] CHLORIDE 105 98 - 107 mmol/L 01/25/2024 6:[address] [facility] CO2,TOTAL 26 22 - 29 mmol/L 01/25/2024 6:38 AM T [facility] ANION GAP 13 5 - 18 01/25/2024 6:38 AM T [facility] GLUCOSE 84 70 - 99 mg/dL 01/25/2024 6:38 AM T [facility] CALCIUM 9.7 8.8 - 10.2 mg/dL 01/25/2024 6:38 AM T [facility] BUN 37(H) 8 - 23 mg/dL 01/25/2024 6:38 AM T [facility] CREATININE 1.40(H) 0.50 - 0.90 mg/dL 01/25/2024 6:38 AM CDT [facility] BUN/CREAT RATIO 26(H) 10 - 20 6:38 AM CDT [facility] eGFR 37(L) >90 mL/min/1.7 3m2 01/25/2024 6:38 AM CDT [facility] Comment:As of 2021, eG [...] 01/25/2024 6:13 AM CDT Anais SHORT CHEMISTRY [facility] [address] [place] [address], * SCAN-CARDIAC STRIP (01/24/2024 8:08 PM CDT) Scanner OTHER * SCAN-CARDIAC STRIP (01/24/2024 6:16 PM CDT) Scanner OTHER * TSH (01/24/2024 11:05 AM CDT) TSH 1.42 0.27 - 4.20 uIU/mL 01/24/2024 6:11 PM CDT [facility] Blood BLOOD SPECIMEN / Unknown Butterfly / Unknown 01/24/2024 11:05 AM CDT 01/24/2024 11:13 AM CDT Narrative [facility] - 01/24/2024 6:11 PM CDT In Adults, TSH values between 5.00 and 10.00 uIU/ml do not necessarily indicate the presence of Hypothyroidism. Correlation with clinical findings such as presence of goiter and/or Thyroperoxidase (TPO) Antibody may be helpful. For more information please refer to SHABANA 2004; 291: 228-238. Anais SHORT CHEMISTRY [facility] [address] [place] [address], [place] * ECHO TTE COMPLETE WO CONTRAST (12/28/2023 9:58 AM CDT) AORTIC VALVE MEAN PG 4 mmHg PEAK TR VELOCITY 3.2 m/s LVEDD 3.5 cm EJECTION FRACTION 55 - 60% Anatomical Region Laterality Modality Ultrasound 12/28/2023 9:13 AM CDT Narrative 12/28/2023 10:52 AM CDT ECHOCARDIOGRAM ABIMBLOA SAMUELS ? Accession#: ?? [id number] : ?1940 83 years Study Date: ?? 12/28/2023 9:13:23 AM Gender: F ?BP: ? 147/88 mmHg Height: 163.00 cm ?BSA: ?1.71 m? ? ? Weight: 66.00 kg ? Tech: ? MBF ? Referring MD: TAMERA JIMENEZ Site: ? [facility] Reading Location: Mobile [facility] Patient Location: Outpatient. Procedure: [...] AM. This study was interpreted by an [facility] accredited facility. CC: [facility] ([facility]) [facility]. ??Final (Updated) ?? Procedure Note Chandrakant Tomas MD - 12/28/2023 ECHOCARDIOGRAM ABIMBOLA SAMUELS : 1940 83 years Study Date: 12/28/2023 9:13:23 AM Gender: F BP: 147/88 mmHg Height: 163.00 cm BSA: 1.71 m? ? ? Weight: 66.00 kg Tech: EMETERIO Referring MD: TAMERA JIMENEZ Site: [facility] Reading Location: [facility] Patient Location: Outpatient. Procedure: 2D, Color [...] interpreted by an [facility] accredited facility. CC: [facility] ([facility]) [facility]. Final (Updated) Tamera Jimenez MD ECHO ORD from Last 3 Months Advance Directives Documents on File Type Date Recorded Patient Stonehand Expl anation Healthcare Directive 10/20/2021 8:51 AM * Full Code (Latest Code Status on File) Date Activated Date Inactivated Comments 02/18/2024 3:28 PM 02/18/2024 6:19 PM Question Answer Comments Code Status Discussion: Reviewed Preferences * Full Code Date Activated Date Inactivated Comments 01/25/2024 3:59 [...] Preferences, Provider to review later Care Teams Application Development Liaison Relationship Specialty Start Date End Date Tamera Jimenez MD [address] [facility] [place] [address] PCP - General Family Practice 10/24/23
--- OUTSIDE RECORDS SUMMARY | 2024-03-10 09:33 | XMS_ITS | Encounter Summary ---
Author Organization [employer] Address [address], [place] [address] Care Team Providers Care Simplex Operator Name Role Phone Clinician, Not Found MD Primary Care Provider Un available Reason for Visit * Reason Comments FYI Encounter Details Date Type Department Care Team (Late st Contact Info) Description 02/29/2024 Telephone [place] [address] [place] [address]. [place], [place] [phone] Denise Davila MD [facility] [place], [place] [phone] FYI Social History Tobacco Use Types Packs/Day Years Used Date Smoking Tobacco: Never Smokeless Tobacco: Never Alcohol Use Standard Drinks/Week Comments Yes 0 (1 standard drink = 0.6 oz pur e alcohol) Sex and Gender Information Value Date Recorded Sex Assigned at Not on file Gender Identity Not on file Sexual Orientation Not on file documented as of this encounter Nursing Notes * Sharita Henao - 02/29/2024 9:57 AM CDT Patient calling to report that she was discharged from [facility] yesterday and patient was unsure of what dose of prednisone she was suppose to be on because of a discrepancy at the hospital. Patient was informed of the tapering instructions from 01/15/24. Patient will resume taking 17.5 mg daily and taper as directed. No further action needed. documented in this encounter Plan of Treatment Upcoming Encounters Date Type Department Care Team (Late st Contact Info) Description 04/25/2024 12:00 PM CDT Appointment [facility] [address] [place] [address] Denise Davila MD [address] [place], [place] [phone] 06/24/2024 12:[address] CLERK Appointment [facility] [address] [place] [address] Denise Davila MD [address] [place], [place] [phone] documented as of this encounter Visit Diagnoses Not on filedocumented in this encounter Care Teams Simplex Operator Relationship Specialty Start Date End Date Clinician, Not Found, [place] [address] PCP - General 03/01/18 documented as of this encounter
--- OUTSIDE RECORDS SUMMARY | 2024-03-10 09:33 | XMS_ITS | Encounter Summary ---
Author Organization [employer] Address [address] [address] Care Team Providers Care Winch Operator Name Role Phone Clinician, Not Found MD Primary Care Provider Un available Encounter Details Date Type Department Care Team (Late st Contact Info) Description 12/27/2023 Notes/Orders [place] [address] [place] [address]. [place], [place] [phone] Denise Davila MD [facility] [place], [place] [phone] Social History Tobacco Use Types Packs/Day Years [...] seen by her primary yesterday at [facility].She is scheduled to have imaging study of her liver and echocardiogram. I called her primary Dr. Newton at phone number [phone] to discuss about her condition. I still could not reach Dr. Chandler and left her phone number to call me back. documented in this encounter Plan of Treatment Upcoming Encounters Date Type Department Care Team (Late st Contact Info) Description 04/25/2024 12:00 PM CDT Appointment [facility] [address] [place] [address] [place] [address] [place] [address] 06/24/2024 12:00 PM CUSTOMER ASSISTANCE REPRESENTATIVE Appointment [facility] [address] [place] [address] Denise Davila MD [address] [place] [phone] documented as of this encounter Visit Diagnoses Not on filedocumented in this encounter Care Teams Winch Operator Relationship Specialty Start Date End Date Clinician, Not Found, [place] [address] PCP - General 03/01/18 documented as of this encounter
--- OUTSIDE RECORDS SUMMARY | 2024-03-10 09:33 | XMS_ITS | Encounter Summary ---
Author Organization [employer] Address [address], [place] [address] Care Team Providers Care Information Scientist Name Role Phone Clinician, Not Found MD Primary Care Provider Un available Reason for Visit * Reason Comments PHONE CALL TO PATIENT Encounter Details Date Type Department Care Team (Late st Contact Info) Description 12/19/2023 Telephone [place] [id number] Rheumatology [employer] [place], [place] [phone] Denise Davila MD [employer] [place], [place] [phone] PHONE CALL TO PATIENT Social History Tobacco [...] Sharita Henao - 12/19/2023 2:22 PM CDT [facility] records received and placed in your inbox in [employer]. * Suri Stovall RN - 12/19/2023 10:24 AM CDT Spoke to patient, relaying provider's message below. Patient states that she notified the clinic yesterday to have results faxed over to us but she will reach out to them again today. * Denise Davila MD - 12/19/2023 9:59 AM CDT Please call to remind her to have outside records (from [facility] system) and lab results faxed to me to review documented in this encounter Plan of Treatment Upcoming Encounters Date Type Department Care Team (Late st Contact Info) Description 04/25/2024 12:00 PM CDT Appointment [facility] [address] [place] [address] Denise Davila MD [address] [place] [address] 06/24/2024 12:00 PM MANAGER INSTRUMENTATION Appointment [facility] [address] [place] [address] Denise Davila MD [address] [place] [address] documented as of this encounter Visit Diagnoses Not on filedocumented in this encounter Care Teams Information Scientist Relationship Specialty Start Date End Date Clinician, Not Found, [place] [address] PCP - General 03/01/18 documented as of this encounter
--- OUTSIDE RECORDS SUMMARY | 2024-03-10 09:33 | XMS_ITS | Encounter Summary ---
Author Organization [facility] Address [address] [address] Care Team Providers Care Third Hand Name Role Phone Clinician, Not Found MD Primary Care Provider Un available Encounter Details Date Type Department Care Team (Late st Contact Info) Description 12/18/2023 3:10 PM CDT Lab Visit [facility] [address] [place], [place] [address] Arthralgia, unspecified joint Social History Tobacco Use [...] Info) Description 04/25/2024 12:00 PM CDT Appointment [facility] [address] [place] [address] Denise Davila MD [address] [facility], [place] [phone] 06/24/2024 12:00 PM DIE MAKER TRIM Appointment [facility] [address] [place] [address] Denise Davila MD [address] [place], [place] [phone] documented as of this encounter Procedures Procedure [...] - 168 U/L 12/20/2023 10:13 AM CDT [facility] Blood Venipuncture / Unknown 12/18/2023 3:21 PM CDT 12/18/2023 3:21 PM CDT Denise Davila MD LAB_1 [facility] [employer] [facility] [address] * CCP Antibody (12/18/2023 3:21 PM CDT) Pathologist [facility] Anti-CCP Antibody 0.5 0.0 - 6.9 U/mL 12/19/2023 1:00 PM CDT [facility] Anti-CCP Antibody Interpretation Negative Negative 12/19/2023 1:00 PM CDT [facility] Blood Venipuncture / Unknown 12/18/2023 3:21 PM CDT 12/18/2023 3:21 PM CDT Narrative [facility] - 12/19/2023 1:00 PM CDT This result was obtained with the [employer] 250. Quantitative results cannot be directly compared to other manufacturers' methods. Denise Davila MD LAB_1 [facility] [address] * Rheumatoid Factor, Quant (12/18/2023 3:21 PM CDT) Rheumatoid Factor, Quantitative <15 <=30 IU/mL 12/18/2023 9:03 PM CDT [facility] Blood Venipuncture / Unknown 12/18/2023 3:21 PM CDT 12/18/2023 3:21 PM CDT Denise Davila MD LAB_1 Performing Organization Address [facility]/ZIP Co de Phone Number [facility] [address] * Sedimentation Rate (ESR) (12/18/2023 3:21 PM CDT) [facility] Sedimentation Rate 12 0 - 20 mm/hr 12/18/2023 3:55 PM CDT [facility] Blood Venipuncture / Unknown 12/18/2023 3:21 PM CDT 12/18/2023 3:21 PM CDT Denise Davila MD LAB_1 [facility] [address] [place] [address] * (ABNORMAL) C-Reactive Protein (12/18/2023 3:21 PM CDT) Pathologist [facility] C-Reactive Protein 1.4(H) 0.0 - 0.5 mg/dL 12/18/2023 5:10 PM T [facility] Blood Venipuncture / Unknown 12/18/2023 3:21 PM CDT 12/18/2023 3:21 PM CDT Denise Davila MD LAB_1 [facility] [address] [place] [address] * (ABNORMAL) Protein ELP (Serum) (12/18/2023 3:21 PM CDT) Total Protein 6.9 6.4 - 8.3 g/dL 12/20/2023 10:36 AM T [facility] Albumin 4.3 3.4 - 4.8 g/dL 12/20/2023 10:36 AM [facility] Alpha 1 0.4 0.2 - 0.5 g/dL 12/20/2023 10:36 AM T [facility] Alpha 2 0.9 0.5 - 1.1 g/dL 12/20/2023 10:36 AM T [facility] Beta 0.7 0.6 - 1.1 g/dL 12/20/2023 10:36 AM [facility] Gamma 0.6(L) 0.7 - 1.6 g/dL 12/20/2023 10:36 AM [facility] Monoclonal Vahid 0.0 <=0.0 g/dL 12/20/2023 10:36 AM [facility] Interpretation Borderline hypogammaglobuli nemia. Consider urine immunofixation to rule out Bence Orozco proteinuria. 12/20/2023 10:36 AM [facility] Signed Out By [facility] 12/20/2023 10:36 AM [facility] Blood Venipuncture / Unknown 12/18/2023 3:21 PM CDT 12/18/2023 3:21 PM CDT Denise Davila MD LAB_1 [facility] [address] [place], [place] [address] documented in this encounter Visit Diagnoses Diagnosis Arthralgia, unspecified joint documented in this encounter Care Teams Third Hand Relationship Specialty Start Date End Date Clinician, Not Found, [place] [address] PCP - General 03/01/18 documented as of this encounter
--- OUTSIDE RECORDS SUMMARY | 2024-03-10 09:33 | XMS_ITS | Encounter Summary ---
Author Organization [facility] Address [address], [place] [address] Care Team Providers Care Test Driller Name Role Phone Clinician, Not Found MD Primary Care Provider Un available Encounter Details Date Type Department Care Team (Latest Contact Info) Description 01/02/2024 Orders Only HIM DEPARTMENT Provider, [place] [address] Social History Tobacco Use Types Packs/Day Years [...] Info) Description 04/25/2024 12:00 PM CDT Appointment [facility] [address] [place] [address] Denise Davila MD [address] [place] [address] 06/24/2024 12:00 PM MEMBERSHIP ADMINISTRATOR Appointment [facility] [address] [place] [address] Denise Davila MD [address] [place] [address] documented as of this encounter Procedures Procedure Name Priority Date/Time Associated Diagnosis Comments LABORATORY REPORT 01/02/2024 documented in this encounter Results * LABORATORY REPORT (01/02/2024) Interface Provider DUMMY/OTHER/AR documented in this encounter Visit Diagnoses Not on filedocumented in this encounter Care Teams Test Driller Relationship Specialty Start Date End Date Clinician, Not Found, [place] [address] PCP - General 03/01/18 documented as of this encounter
--- OUTSIDE RECORDS SUMMARY | 2024-03-10 09:33 | XMS_ITS | Encounter Summary ---
Author Organization [employer] Address [address] [address] Care Team Providers Care Golf Professional Name Role Phone Clinician, Not Found MD Primary Care Provider Un available Reason for Referral * Procedure/Equipment (Routine) - Incomplete Specialty Diagnoses / Procedures Referred By Contanita t Referred To Contact Diagnoses superintendent terminal 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 Procedures [facility] Denise Davila MD [address] [place] [address] Referral ID Status Reason Start Date Expiration Date V isits Requested Visits Authorized [id number] Incomplete 01/15/2024 04/15/2025 1 1 Reason for Visit * Reason Comments Follow-up Encounter Details Date Type Department Care Team (Late st Contact Info) Description 01/15/2024 2:30 PM CDT Office Visit [facility] [address] [place] [address] Denise Davila MD [address] [place], [place] [phone] PMR (polymyalgia rheumatica) (HRC) (Primary Dx); Chronic tophaceous gout; Osteoarthritis of multiple joints, unspecified osteoarthritis type; superintendent terminal 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; Persistent atrial [...] Eliquis. She is about to see her dust handler in 2 days. She was also found [...] Info) Description 04/25/2024 12:00 PM CDT Appointment [facility] [address] [place] [address] Denise Davila MD [facility] [place] [address] 06/24/2024 12:00 PM LABORATORY SPECIALIST Appointment [facility] [address] [place] [address] Denise Davila MD [address] [place] [address] Scheduled Orders Name Type Priority Associated Diagnoses Orde r Schedule [facility] Imaging New Routine superintendent terminal 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 Expected: 01/15/2024 (Approximate), Expires: 01/14/2025 documented as of this encounter Results * (ABNORMAL) Creatinine / GFR (01/11/2024 10:22 AM CDT) Creatinine 1.79(H) 0.55 - 1.02 mg/dL 01/15/2024 5:35 PM CDT [facility] GFR, Estimated 28(L) >60 mL/min/1.7 3m2 01/15/2024 5:35 PM CDT [facility] Blood Venipuncture / Unknown 01/11/2024 10:22 AM CDT 01/11/2024 10:22 AM CDT Denise Davila MD LAB_1 [facility] [address] [place] [address], [facility] documented in this encounter Visit Diagnoses Diagnosis PMR (polymyalgia rheumatica) (HRC)- Primary Polymyalgia rheumatica 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
--- OUTSIDE RECORDS SUMMARY | 2024-03-10 09:33 | XMS_ITS | Encounter Summary ---
Author Organization [facility] Address [address] [place] [address] Care Team Providers Care Auto Body Technician Name Role Phone Clinician, Not Found MD Primary Care Provider Un available Reason for Visit * Reason Comments Refill Encounter Details Date Type Department Care Team (Late st Contact Info) Description 11/13/2023 Refill [facility] [address] [place], [place] [address] Denise Davila MD [address] [place] [address] Refill Social History Tobacco Use [...] Info) Description 04/25/2024 12:00 PM CDT Appointment [facility] [address] [place] [address] Denise Davila MD [address] [place] [address] 06/24/2024 12:00 PM CUSTOMER EXPERIENCE ASSOCIATE Appointment [facility] [address] [place] [address] Denise Davila MD [address] [place] [address] documented as of this encounter Visit Diagnoses Diagnosis Osteoarthritis of multiple joints, unspecified osteoarthritis type documented in this encounter Care Teams Auto Body Technician Relationship Specialty Start Date End Date Clinician, Not Found, [place] [address] PCP - General 03/01/18 documented as of this encounter
--- OUTSIDE RECORDS SUMMARY | 2024-03-10 09:33 | XMS_ITS | Clinical Summary ---
Author Organization [facility] Address [address], [place] [address] Care Team Providers Care Bowstring Maker Name Role Phone Clinician, Not Found MD Primary Care Provider Un available Source Comments You are receiving this document as you are listed as the primary care provider,follow-up provider, or the patient has been referred to you for consultation.This is in compliance with the Medicare and[facility] EHR Incentive Program,which states Providers who transition their patient to another setting of careor provider of care or refers their patient to another provider of care shouldprovide summary care record for each transition of care or referral. [facility] Allerg[facility] Active Allergy Reactions Criticality Noted Date Comments Propoxyphene Other, see comments Medium 10/21/1999 Lethargy Sulindac Hives High 06/03/2003 Medications Medication Sig Dispensed Refills Start Date End Date Status lisinopril (AKA ZESTRIL) 40 MG tablet Take 1 tablet by mouth daily (every 24 hours). LW Addl Instr:Indicated for: High Blood Pressure 90 3 02/19/2006 Active amLODIPine (NORVASC) 5 MG tablet 08/09/2017 Active atorvastatin (LIPITOR) 40 MG tablet 08/09/2017 Active omeprazole (PRILOSEC) 20 MG capsule Take 1 Capsule (20 mg) by mouth. 01/19/2015 Active atenolol (TENORMIN) 25 MG tablet Take 1 Tablet (25 mg) by mouth. 01/19/2015 Active chlorthalidone (HYGROTON) 25 MG tablet 1 Tablet (25 mg). 03/21/2016 Active levothyroxine (SYNTHROID) 75 MCG tablet Take 1 Tablet (75 mcg) by mouth daily. 12/10/2021 Active furosemide (LASIX) 20 MG tablet Take 1 Tablet (20 mg) by mouth as needed. 07/28/2021 Active allopurinol (ZYLOPRIM) 100 MG tablet Take 200 mg/d (2 tabs) all in am. (New instruction as of 09/29/22) 180 Tablet 3 04/25/2023 Active traMADol (ULTRAM) 50 MG tabletIndications:Os teoarthritis of multiple joints, unspecified osteoarthritis type TAKE 1 TABLET BY MOUTH EVERY NIGHT AT BEDTIME NEEDED FOR JOINT PAIN 60 Tablet 11/13/2023 Active metoprolol succinate (TOPROL XL) 25 MG 24 hour release tablet Take 0.5 Tablets (12.5 mg) by mouth daily. 12/11/2023 Active calcium carbonate-vitamin D 600-10 MG-MCG tablet 1 tab twice a day with meals. 12/18/2023 Active predniSONE (DELTASONE) 5 MG tablet All in am: 17.5 mg a day (3.5 tabs) for 2 weeks, 15 mg a day( 3 tabs) x 2 wk, 12.5 mg/d (2.5 tabs) x 2 wk, then stay 10 mg/d (2 tabs). (New instruction as of 01/15/2024) 250 Tablet 1 01/15/2024 Active ELIQUIS 2.5 MG tablet Take 1 Tablet (2.5 mg) by mouth two times a day. 01/02/2024 Active Methylcobalamin 1 MG CHEW Chew and swallow 1 Tablet (1 mg) by mouth daily. 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 Renal insufficiency 10/01/2020 Hyperuricemia 09/10/2020 S/P total knee arthroplasty, bilateral 8 S/P appendectomy 03/29/2018 Restless legs syndrome (RLS) 03/29/2018 Chronic left shoulder pain 03/29/2018 Psoriatic arthritis 03/29/2018 Sensorineural hearing loss 02/22/2005 Overview: LW Onset: [id number] ; Hearing Loss Sensorineural Undiagnosed cardiac murmurs 02/22/2005 Overview: LW Modifier: functional LW Onset: [id number] ; Heart Murmur Right bundle branch block 02/22/2005 Overview: LW Onset: [id number] Obesity 05/04/2004 Overview: LW Onset: [id number] Essential hypertension 01/17/2003 Overview: Hypertension Hypothyroidism 01/17/2003 Overview: Hypothyroidism Acquired Osteoarthritis 01/17/2003 Overview: DJD Chronic kidney disease, stage 3b Encounters Date Type Department Care Team Description 02/29/2024 Telephone [place] [address] [place] [address]. [place] [address] Denise Davila MD Chanel 01/15/2024 2:30 PM CDT Office Visit [facility] [address] [place] [address] Denise Davila MD PMR (polymyalgia rheumatica) (HRC) (Primary Dx); Chronic tophaceous gout; Osteoarthritis of multiple joints, unspecified osteoarthritis type; group home 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; Persistent atrial fibrillation (HRC) 01/11/2024 10:20 AM CDT Lab Visit [facility] [address] [place] [address] PMR (polymyalgia rheumatica) (HRC); Chronic tophaceous gout 01/02/2024 Orders Only HIM DEPARTMENT Provider, MD Ernie 12/27/2023 Notes/Orders [place] [address] [place] [address]. [place] [address] Denise Davila MD 12/20/2023 Notes/Orders [place] [address] [place] [address] [facility] [place] [address] Denise Davila MD Arthralgia, unspecified joint (Primary Dx); PMR (polymyalgia rheumatica) (HRC) 12/19/2023 Telephone [place] [address] [place] [address]. [place] [address] Denise Davila MD PHONE CALL TO PATIENT 12/18/2023 3:10 PM CDT Lab Visit [facility] [address] [place] [address] Arthralgia, unspecified joint 12/18/2023 2:30 PM CDT Office Visit [facility] [address] [place] [address] Denise Davila MD Chronic tophaceous gout (Primary Dx); Osteoarthritis of multiple joints, unspecified osteoarthritis type; Arthralgia, unspecified joint from Last 3 Months Immunizations Name Administration Dates Next Due Flu Vac Preserv Free (3+yrs) 04/21/2013, 04/28/2009,05/21/2006,2004,05/04/2004 Influenza IIV3 (Trivalent) F luzone Highdose, 65+ Yrs ([address]) 06/15/2020,07/01/2019,05/27/2018,2017,05/30/2017,05/15/2016,04/28/2014 Influenza IIV4 (Quadrivalent ) Fluad, 65+ [...] Info) Description 04/25/2024 12:00 PM CDT Appointment [facility] [address] [place] [address] [place] [address] [place] [address] 06/24/2024 12:00 PM 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 Appointment [facility] [address] [place] [address] [place] [address] [place] [address] [phone] Health Maintenance Due Date Last Done Comments Medicare Annual Wellness Visit 1940 Dexa 02/27/2005 COVID-19 Vaccine ( season) 2023 06/03/2022, 07/08/2021, 10/11/2020, Additional history exists Influenza (#1) 2024 05/10/2023, 05/14, 06/01/2022, Additional history exists DTaP/Tdap/Td (3 - Tdap) [...] - 1.02 mg/dL 01/15/2024 5:35 PM CDT [facility] GFR, Estimated 28(L) >60 mL/min/1.7 3m2 01/15/2024 5:35 PM CDT [facility] Blood Venipuncture / Unknown 01/11/2024 10:22 AM CDT 01/11/2024 10:22 AM CDT Denise Davila MD LAB_1 [facility] [address] [place] [address] * C-Reactive Protein (01/11/2024 10:22 AM CDT) Only the most recent of2 resultswithin the time period is included. C-Reactive Protein <0.5 0.0 - 0.5 mg/dL 01/11/2024 11:45 AM CDT [facility] Blood Venipuncture / Unknown 01/11/2024 10:22 AM CDT 01/11/2024 10:22 AM CDT Denise Davila MD LAB_1 Performing Organization Address [facility] de Phone Number [facility] [address] [place] [phone] * Sedimentation Rate (ESR) (01/11/2024 10:22 AM CDT) Only the most recent of2 resultswithin the time period is included. Sedimentation Rate 3 0 - 20 mm/hr 01/11/2024 11:05 AM CDT [facility] Blood Venipuncture / Unknown 01/11/2024 10:22 AM CDT 01/11/2024 10:22 AM CDT Denise Davila MD LAB_1 Performing Organization Address [facility] de Phone Number [facility] [address] [place] [address] * LABORATORY REPORT (01/02/2024) Interface Provider MD DUMMY/OTHER/AR * Sedimentation Rate (Ext Rslt) (12/21/2023 9:22 AM CDT) EXT RSLT - SED RATE (ESR) 18 1 - 20 mm/hr PN EXTERNAL LAB-SEE SCANNED DOCUMENT 12/21/2023 9:22 AM CDT Denise Davila MD LAB EXTERNAL R ESULT Performing Organization Address [facility] de Phone Number PN EXTERNAL LAB-SEE SCANNED DOCUMENT Do Not Mail * Creatinine (Ext Rslt) (12/21/2023 9:22 AM CDT) EXT RSLT - CREATININE 1.4 0.5 - 1.5 mg/dL PN EXTERNAL LAB-SEE SCANNED DOCUMENT 12/21/2023 9:22 AM CDT Denise Davila MD LAB EXTERNAL R ESULT Performing Organization Address City/[facility] Co de Phone Number PN EXTERNAL LAB-SEE SCANNED DOCUMENT Do Not Mail * Scanned result (Ext Rslt) (12/21/2023 9:22 AM CDT) Ext Rslt - Scanned CRP PN EXTERNAL LAB-SEE SCANNED DOCUMENT 12/21/2023 9:22 AM CDT Denise Davila MD LAB EXTERNAL R ESULT Performing Organization Address [facility] de Phone Number PN EXTERNAL LAB-SEE SCANNED DOCUMENT Do Not Mail * (ABNORMAL) AST (Ext Rslt) (12/21/2023 9:22 AM CDT) EXT RSLT - AST 181(H) 12 - 35 U/L PN EXTERNAL LAB-SEE SCANNED DOCUMENT 12/21/2023 9:22 AM CDT Denise Davila MD LAB EXTERNAL R ESULT Performing Organization Address [facility] de Phone Number PN EXTERNAL LAB-SEE SCANNED DOCUMENT Do Not Mail * (ABNORMAL) ALT (Ext Rslt) (12/21/2023 9:22 AM CDT) EXT RSLT - ALT 192(H) 4 - 35 U/L PN E XTERNAL LAB-SEE SCANNED DOCUMENT 12/21/2023 9:22 AM CDT Denise Davila MD LAB EXTERNAL R ESULT Performing Organization Address City/[facility] Co de Phone Number PN EXTERNAL LAB-SEE SCANNED DOCUMENT Do Not Mail * CCP Antibody (12/18/2023 3:21 PM CDT) Anti-CCP Antibody 0.5 0.0 - 6.9 U/mL 12/19/2023 1:00 PM CDT [facility] Anti-CCP Antibody Interpretation Negative Negative 12/19/2023 1:00 PM CDT [facility] Blood Venipuncture / Unknown 12/18/2023 3:21 PM CDT 12/18/2023 3:21 PM CDT Narrative [facility] - 12/19/2023 1:00 PM CDT This result was obtained with the WebPTa 250. Quantitative results cannot be directly compared to other manufacturers' methods. Denise Davila MD LAB_1 [facility] [address] * (ABNORMAL) Protein ELP (Serum) (12/18/2023 3:21 PM CDT) Total Protein 6.9 6.4 - 8.3 g/dL 12/20/2023 10:36 AM T [facility] Albumin 4.3 3.4 - 4.8 g/dL 12/20/2023 10:36 AM T [facility] Alpha 1 0.4 0.2 - 0.5 g/dL 12/20/2023 10:36 AM T [facility] Alpha 2 0.9 0.5 - 1.1 g/dL 12/20/2023 10:36 AM [facility] Beta 0.7 0.6 - 1.1 g/dL 12/20/2023 10:36 AM [facility] Gamma 0.6(L) 0.7 - 1.6 g/dL 12/20/2023 10:36 AM T [facility] Monoclonal Vahid 0.0 <=0.0 g/dL 12/20/2023 10:36 AM [facility] Interpretation Borderline hypogammaglobuli nemia. Consider urine immunofixation to rule out Bence Orozco proteinuria. 12/20/2023 10:36 AM [facility] Signed Out By [facility] 12/20/2023 10:36 AM CDT [facility] Blood Venipuncture / Unknown 12/18/2023 3:21 PM CDT 12/18/2023 3:21 PM CDT Denise Davila MD LAB_1 Performing Organization Address [facility]/ZIP Co de Phone Number [facility] [address] [address] * Rheumatoid Factor, Quant (12/18/2023 3:21 PM CDT) Rheumatoid Factor, Quantitative <15 <=30 IU/mL 12/18/2023 9:03 PM CDT [facility] Blood Venipuncture / Unknown 12/18/2023 3:21 PM CDT 12/18/2023 3:21 PM CDT Denise Davila MD LAB_1 Performing Organization Address [facility] Co de Phone Number [facility] [address] * CK, Total (12/18/2023 3:21 PM CDT) CK, Total 65 29 - 168 U/L 12/20/2023 10:13 AM CDT [facility] Blood Venipuncture / Unknown 12/18/2023 3:21 PM CDT 12/18/2023 3:21 PM CDT Denise Davila MD LAB_1 Performing Organization Address City/[facility]/ZIP Co de Phone Number [facility] [address] [address] from Last 3 Months Care Teams Bowstring Maker Relationship Specialty Start Date End Date Clinician, Not Found, [place] [address] PCP - General 03/01/18
--- OUTSIDE RECORDS SUMMARY | 2024-03-10 09:33 | XMS_ITS | Encounter Summary ---
Author Organization [facility] Address [address], [place] [address] Care Team Providers Care Waiter Waitress Name Role Phone Clinician, Not Found MD Primary Care Provider Un available Encounter Details Date Type Department Care Team (Late st Contact Info) Description 01/11/2024 10:20 AM CDT Lab Visit [facility] [address] [place], [place] [address] PMR (polymyalgia rheumatica) (HRC); Chronic tophaceous gout [...] Department Care Team (Late Contact Info) Description 04/25/2024 12:00 PM CDT Appointment [facility] [address] [place] [address] Denise Davila MD [facility] [place] [address] 06/24/2024 12:00 PM GAUGER DELIVERY Appointment [facility] [address] [place] [address] Denise Davila MD [address] [place] [address] documented as of this encounter Procedures Procedure [...] - 1.02 mg/dL 01/15/2024 5:35 PM CDT [facility] GFR, Estimated 28(L) >60 mL/min/1.7 3m2 01/15/2024 5:35 PM CDT [facility] Blood Venipuncture / Unknown 01/11/2024 10:22 AM CDT 01/11/2024 10:22 AM CDT Denise Davila MD LAB_1 Performing Organization Address [facility]/ZIP Co de Phone Number [facility] [address] [place] [address] * Sedimentation Rate (ESR) (01/11/2024 10:22 AM CDT) Sedimentation Rate 3 0 - 20 mm/hr 01/11/2024 11:05 AM CDT [facility] Blood Venipuncture / Unknown 01/11/2024 10:22 AM CDT 01/11/2024 10:22 AM CDT Denise Davila MD LAB_1 Performing Organization Address City/[facility]/ZIP Co de Phone Number [facility] [address] [place] [address] * C-Reactive Protein (01/11/2024 10:22 AM CDT) C-Reactive Protein <0.5 0.0 - 0.5 mg/dL 01/11/2024 11:45 AM CDT [facility] Blood Venipuncture / Unknown 01/11/2024 10:22 AM CDT 01/11/2024 10:22 AM CDT Denise Davila MD LAB_1 [facility] [address] [place] [address] documented in this encounter Visit Diagnoses Diagnosis PMR (polymyalgia rheumatica) (HRC) Polymyalgia rheumatica 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
--- OUTSIDE RECORDS SUMMARY | 2024-03-10 09:33 | XMS_ITS | Encounter Summary ---
Author Organization [facility] Address [address], [place] [address] Care Team Providers Care Fire Behavior Analyst Name Role Phone Clinician, Not Found MD Primary Care Provider Un available Encounter Details Date Type Department Care Team (Late st Contact Info) Description 12/20/2023 Notes/Orders [place] [address] [place] [address]. [place] [address] Denise Davila MD [address] [place] [phone] Arthralgia, unspecified joint (Primary Dx); PMR (polymyalgia [...] 7:43 AM CDT Received outside records from [facility]: Based on the outside record notes, the [...] prednisone (5-mg tablet) to her local pharmacy ([facility], not the [facility] script) so that she can follow this scheduled. Please remind her that this is 5- mg tablet and not 20-mg tablet as she is currently using. Please also help make an earlier follow-up appointment to 8 weeks in early February,, not April as currently is. * Isamar Rsuhing LPN - 12/20/2023 7:43 AM CDT Patient [...] Info) Description 04/25/2024 12:00 PM CDT Appointment [facility] [address] [place] [address] [place] [address] [place] [phone] 06/24/2024 12:00 PM ANNUAL GREENHOUSE MANAGER Appointment [facility] [address] [place], [place] [address] Denise Davlia MD [address] [place], [place] [phone] Scheduled Orders Name Type Priority Associated Diagnoses Orde r Schedule C-Reactive Protein Lab Routine PMR (polymyalgia rheumatica) (C) 12 Occurrences starting 12/20/2023 until 12/19/2024, 1 completed Sedimentation Rate (ESR) Lab Routine PMR (polymyalgia rheumatica) ([facility]) 12 Occurrences starting 12/20/2023 until 12/19/2024, 1 completed documented as of this encounter Results * Sedimentation Rate (ESR) (01/11/2024 10:22 AM CDT) Sedimentation Rate 3 0 - 20 mm/hr 01/11/2024 11:05 AM CDT [facility] Blood Venipuncture / Unknown 01/11/2024 10:22 AM CDT 01/11/2024 10:22 AM CDT Denise Davila MD LAB_1 [facility] [address] [place] [address] * C-Reactive Protein (01/11/2024 10:22 AM CDT) [facility] C-Reactive Protein <0.5 0.0 - 0.5 mg/dL 01/11/2024 11:45 AM CDT [facility] Blood Venipuncture / Unknown 01/11/2024 10:22 AM CDT 01/11/2024 10:22 AM CDT Denise Davila MD LAB_1 Performing Organization Address City/[facility]/ZIP Co de Phone Number [facility] [address] [place] [address], [facility] * CK, Total (12/18/2023 3:21 PM CDT) [facility] CK, Total 65 29 - 168 U/L 12/20/2023 10:13 AM CDT [facility] Blood Venipuncture / Unknown 12/18/2023 3:21 PM CDT 12/18/2023 3:21 PM CDT Denise Davila MD LAB_1 [facility] [address] documented in this encounter Visit Diagnoses Diagnosis Arthralgia, unspecified joint- Primary PMR (polymyalgia rheumatica) (HRC) Polymyalgia rheumatica documented in this encounter Care Teams Fire Behavior Analyst Relationship Specialty Start Date End Date Clinician, Not Found, [place] [address] PCP - General 03/01/18 documented as of this encounter
== END 2024-03-07 09:41 | disposition home or self-care (01) ==
LOC: NFLDREF 03-10 09:27
PROVIDERS: PCP Family Medicine; Referring Provider Family Medicine; Visit Provider Family Medicine
DX: I48.20 Chronic atrial fibrillation, unspecified (principal); N18.9 Chronic kidney disease, unspecified; Z79.899 Other long term (current) drug therapy; Z79.01 Long term (current) use of anticoagulants
CPT/HCPCS: 80048; 80162; 85610

== ENCOUNTER 2024-03-11 09:42 | Outpatient (CLI) | payer MEDICARE, OTHER, SELFPAY ==
--- OUTSIDE RECORDS SUMMARY | 2024-03-12 09:33 | XMS_ITS | Encounter Summary ---
Author Organization [facility] Address [address], [place] [address] Care Team Providers Care Shake Loader Name Role Phone Clinician, Not Found MD Primary Care Provider Un available Encounter Details Date Type Department Care Team (Late st Contact Info) Description 12/20/2023 Notes/Orders [place] [address] [place] [address]. [place] [address] Denise Davila MD [address] [place] [phone] Arthralgia, unspecified joint (Primary Dx); PMR (polymyalgia [...] 7:43 AM CDT Received outside records from [facility]: Based on the outside record notes, [...] prednisone (5-mg tablet) to her local pharmacy ([facility], not the [facility] script) so that she can follow this [...] Info) Description 04/25/2024 12:00 PM CDT Appointment [facility] [address] [place] [address] [place] [address] [place] [phone] 06/24/2024 12:00 PM CAKE FORMER Appointment [facility] [address] [place], [place] [address] Denise Davila MD [address] [place], [place] [phone] Scheduled Orders Name Type Priority Associated Diagnoses Orde r Schedule C-Reactive Protein Lab Routine PMR (polymyalgia rheumatica) (C) 12 Occurrences starting 12/20/2023 until 12/19/2024, 1 completed Sedimentation Rate (ESR) Lab Routine PMR (polymyalgia rheumatica) ([facility]) 12 Occurrences starting 12/20/2023 until 12/19/2024, 1 completed documented as of this encounter Results * Sedimentation Rate (ESR) (01/11/2024 10:22 AM CDT) Sedimentation Rate 3 0 - 20 mm/hr 01/11/2024 11:05 AM CDT [facility] Blood Venipuncture / Unknown 01/11/2024 10:22 AM CDT 01/11/2024 10:22 AM CDT Denise Davila MD LAB_1 [facility] [address] [place] [address] * C-Reactive Protein (01/11/2024 10:22 AM CDT) [facility] C-Reactive Protein <0.5 0.0 - 0.5 mg/dL 01/11/2024 11:45 AM CDT [facility] Blood Venipuncture / Unknown 01/11/2024 10:22 AM CDT 01/11/2024 10:22 AM CDT Denise Davila MD LAB_1 Performing Organization Address City/[facility]/ZIP Co de Phone Number [facility] [address] [place] [address], [facility] * CK, Total (12/18/2023 3:21 PM CDT) [facility] CK, Total 65 29 - 168 U/L 12/20/2023 10:13 AM CDT [facility] Blood Venipuncture / Unknown 12/18/2023 3:21 PM CDT 12/18/2023 3:21 PM CDT Denise Davila MD LAB_1 [facility] [address] documented in this encounter Visit Diagnoses Diagnosis Arthralgia, unspecified joint- Primary PMR (polymyalgia rheumatica) (HRC) Polymyalgia rheumatica documented in this encounter Care Teams Shake Loader Relationship Specialty Start Date End Date Clinician, Not Found, [place] [address] PCP - General 03/01/18 documented as of this encounter
--- OUTSIDE RECORDS SUMMARY | 2024-03-12 09:33 | XMS_ITS | Encounter Summary ---
Author Organization [facility] Address [address], [place] [address] Care Team Providers Care Support Group Manager Name Role Phone Clinician, Not Found MD Primary Care Provider Un available Encounter Details Date Type Department Care Team (Late st Contact Info) Description 01/11/2024 10:20 AM CDT Lab Visit [facility] [address] [place], [place] [address] PMR (polymyalgia rheumatica) (HRC); Chronic tophaceous gout [...] Info) Description 04/25/2024 12:00 PM CDT Appointment [facility] [address] [place] [address] Denise Davila MD [facility] [place] [address] 06/24/2024 12:00 PM SURFACE MINER Appointment [facility] [address] [place] [address] Denise Davila MD [address] [place] [address] documented as of this encounter Procedures Procedure [...] - 1.02 mg/dL 01/15/2024 5:35 PM CDT [facility] GFR, Estimated 28(L) >60 mL/min/1.7 3m2 01/15/2024 5:35 PM CDT [facility] Blood Venipuncture / Unknown 01/11/2024 10:22 AM CDT 01/11/2024 10:22 AM CDT Denise Davila MD LAB_1 Performing Organization Address [facility]/ZIP Co de Phone Number [facility] [address] [place] [address] * Sedimentation Rate (ESR) (01/11/2024 10:22 AM CDT) Sedimentation Rate 3 0 - 20 mm/hr 01/11/2024 11:05 AM CDT [facility] Blood Venipuncture / Unknown 01/11/2024 10:22 AM CDT 01/11/2024 10:22 AM CDT Denise Davila MD LAB_1 Performing Organization Address City/[facility]/ZIP Co de Phone Number [facility] [address] [place] [address] * C-Reactive Protein (01/11/2024 10:22 AM CDT) C-Reactive Protein <0.5 0.0 - 0.5 mg/dL 01/11/2024 11:45 AM CDT [facility] Blood Venipuncture / Unknown 01/11/2024 10:22 AM CDT 01/11/2024 10:22 AM CDT Denise Davila MD LAB_1 [facility] [address] [place] [address] documented in this encounter Visit Diagnoses Diagnosis PMR (polymyalgia rheumatica) (HRC) Polymyalgia rheumatica 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
--- OUTSIDE RECORDS SUMMARY | 2024-03-12 09:33 | XMS_ITS | Continuity of Care Document ---
Author Organization [facility] Address [address] [place] [address] Phone Care Team Providers Care Ore Dressing Engineer Name Role Phone Unavailable Unavailable Unavailable Allergies, [...] Copied on Encounter [facility], [address], [place], [id number] , [place] [phone] [facility] No Information May-2 No Information Office/Outpat ient Visit,Est, Mod [facility], [address], [place], [id number] , [place] tel:[phone] [facility] Other idiopathic scoliosis, lumbar region Rafa Miller. [facility], [address], [facility] [address], [place], [place], [id number], [place]. tel:[phone] Referring Provider: Terry Grant, [facility] [address] [place], [address]. tel:[phone] Office/Outpat ient Visit,New, Mod [facility], [address], [place], [place], [id number] , [place] tel:[phone] [facility] Spinal stenosis, lumbar region with neurogenic claudication Spondylolysi s, lumbar regionOther idiopathic scoliosis, lumbar region 1 No Information Referring Provider: Terry Grant, [facility] [address] [place], [address]. tel:[phone] Family History Family Member Type Diagnosis Age At Onset No Information Payers Payer name Insurance type Covered constitution party ID Authorzaydaa brigette(s) Medicare [id number] For Life/Retired Hunter [id number] Social History Type Description Quantity Date Captured [...]
--- OUTSIDE RECORDS SUMMARY | 2024-03-12 09:33 | XMS_ITS | Clinical Summary ---
Author Organization [facility] Address [address] [place] [address] Care Team Providers Care Acute Coordinator Name Role Phone Clinician, Not Found MD Primary Care Provider Un available Source Comments You are receiving this document as you are listed as the primary care provider,follow-up provider, or the patient has been referred to you for consultation.This is in compliance with the Medicare andWay[facility] Hospitalca[facility] EHR Incentive Program,which states Providers who transition their patient to another setting of careor provider of care or refers their patient to another provider of care shouldprovide summary care record for each transition of care or referral. 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 Renal insufficiency 10/01/2020 Hyperuricemia 09/10/2020 S/P total knee arthroplasty, bilateral 8 S/P appendectomy 03/29/2018 Restless legs syndrome (RLS) 03/29/2018 Chronic left shoulder pain 03/29/2018 Psoriatic arthritis 03/29/2018 Sensorineural hearing loss 02/22/2005 Overview: LW Onset: 69Fag18 ; Hearing Loss Sensorineural Undiagnosed cardiac murmurs 02/22/2005 Overview: LW Modifier: functional LW Onset: 51Evr47 ; Heart Murmur Right bundle branch block 02/22/2005 Overview: LW Onset: 15Hiv36 Obesity 05/04/2004 Overview: LW Onset: 35Awg83 Essential hypertension 01/17/2003 Overview: Hypertension Hypothyroidism 01/17/2003 Overview: Hypothyroidism Acquired Osteoarthritis 01/17/2003 Overview: DJD Chronic kidney disease, stage 3b Encounters Date Type Department Care Team Description 02/29/2024 Telephone [place] [address] [place] [address]. [place] [id number] Denise Davila MD Chanel 01/15/2024 2:30 PM CDT Office Visit [facility] [address] [place] [address] Denise Davila MD PMR (polymyalgia rheumatica) (HRC) (Primary Dx); Chronic tophaceous gout; Osteoarthritis of multiple joints, unspecified osteoarthritis type; residential 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; Persistent atrial fibrillation (HRC) 01/11/2024 10:20 AM CDT Lab Visit [facility] [address] [place] [address] PMR (polymyalgia rheumatica) (HRC); Chronic tophaceous gout 01/02/2024 Orders Only HIM DEPARTMENT Provider, MD Ernie 12/27/2023 Notes/Orders [place] [address] [place] [address]. [place] [address] Denise Davila MD 12/20/2023 Notes/Orders [place] [address] [place] [address] [facility] [place] [address] Denise Davila MD Arthralgia, unspecified joint (Primary Dx); PMR (polymyalgia rheumatica) (HRC) 12/19/2023 Telephone [place] [address] [place] [address]. [place] [address] Denise Davila MD PHONE CALL TO PATIENT 12/18/2023 3:10 PM CDT Lab Visit [facility] [address] [place] [address] Arthralgia, unspecified joint 12/18/2023 2:30 PM CDT Office Visit [facility] [address] [place] [address] Denise Davila MD Chronic tophaceous gout (Primary Dx); Osteoarthritis of multiple joints, unspecified osteoarthritis type; Arthralgia, unspecified joint from Last 3 Months Immunizations Name Administration Dates Next Due Flu Vac Preserv Free (3+yrs) 04/21/2013, 04/28/2009,05/21/2006,2004,05/04/2004 Influenza IIV3 (Trivalent) F luzone Highdose, 65+ Yrs (59[address]) 06/15/2020,07/01/2019,05/27/2018,2017,05/30/2017,05/15/2016,04/28/2014 Influenza IIV4 (Quadrivalent ) Fluad, 65+ [...] Info) Description 04/25/2024 12:00 PM CDT Appointment [facility] [address] [place] [address] [place] [address] [place] [address] 06/24/2024 12:00 PM PARK WORKER Appointment [facility] [address] [place] [address] [place] [address] [place] [address] [phone] Health Maintenance Due Date Last Done Comments [...] - 1.02 mg/dL 01/15/2024 5:35 PM CDT [facility] GFR, Estimated 28(L) >60 mL/min/1.7 3m2 01/15/2024 5:35 PM CDT [facility] Blood Venipuncture / Unknown 01/11/2024 10:22 AM CDT 01/11/2024 10:22 AM CDT Denies Davila MD LAB_1 [facility] [address] [place] [address] * C-Reactive Protein (01/11/2024 10:22 AM CDT) Only the most recent of2 resultswithin the time period is included. C-Reactive Protein <0.5 0.0 - 0.5 mg/dL 01/11/2024 11:45 AM CDT [facility] Blood Venipuncture / Unknown 01/11/2024 10:22 AM CDT 01/11/2024 10:22 AM CDT Denise Davila MD LAB_1 Performing Organization Address [facility] de Phone Number [facility] [address] [place] [phone] * Sedimentation Rate (ESR) (01/11/2024 10:22 AM CDT) Only the most recent of2 resultswithin the time period is included. Sedimentation Rate 3 0 - 20 mm/hr 01/11/2024 11:05 AM CDT [facility] Blood Venipuncture / Unknown 01/11/2024 10:22 AM CDT 01/11/2024 10:22 AM CDT Denise Davila MD LAB_1 Performing Organization Address [facility] de Phone Number [facility] [address] [place] [address] * LABORATORY REPORT (01/02/2024) Interface Provider MD DUMMY/OTHER/AR * Sedimentation Rate (Ext Rslt) (12/21/2023 9:22 AM CDT) EXT RSLT - SED RATE (ESR) 18 1 - 20 mm/hr PN EXTERNAL LAB-SEE SCANNED DOCUMENT 12/21/2023 9:22 AM CDT Denise Davila MD LAB EXTERNAL R ESULT Performing Organization Address [facility] de Phone Number PN EXTERNAL LAB-SEE SCANNED DOCUMENT Do Not Mail * Creatinine (Ext Rslt) (12/21/2023 9:22 AM CDT) EXT RSLT - CREATININE 1.4 0.5 - 1.5 mg/dL PN EXTERNAL LAB-SEE SCANNED DOCUMENT 12/21/2023 9:22 AM CDT Denise Davila MD LAB EXTERNAL R ESULT Performing Organization Address [facility] Co de Phone Number PN EXTERNAL LAB-SEE SCANNED DOCUMENT Do Not Mail * Scanned result (Ext Rslt) (12/21/2023 9:22 AM CDT) Ext Rslt - Scanned CRP PN EXTERNAL LAB-SEE SCANNED DOCUMENT 12/21/2023 9:22 AM CDT Denise Davila MD LAB EXTERNAL R ESULT Performing Organization Address [facility] de Phone Number PN EXTERNAL LAB-SEE SCANNED DOCUMENT Do Not Mail * (ABNORMAL) AST (Ext Rslt) (12/21/2023 9:22 AM CDT) EXT RSLT - AST 181(H) 12 - 35 U/L PN EXTERNAL LAB-SEE SCANNED DOCUMENT 12/21/2023 9:22 AM CDT Denise Davila MD LAB EXTERNAL R ESULT Performing Organization Address [facility] de Phone Number PN EXTERNAL LAB-SEE SCANNED DOCUMENT Do Not Mail * (ABNORMAL) ALT (Ext Rslt) (12/21/2023 9:22 AM CDT) EXT RSLT - ALT 192(H) 4 - 35 U/L PN E XTERNAL LAB-SEE SCANNED DOCUMENT 12/21/2023 9:22 AM CDT Denise Davila MD LAB EXTERNAL R ESULT Performing Organization Address [facility] Co de Phone Number PN EXTERNAL LAB-SEE SCANNED DOCUMENT Do Not Mail * CCP Antibody (12/18/2023 3:21 PM CDT) Anti-CCP Antibody 0.5 0.0 - 6.9 U/mL 12/19/2023 1:00 PM CDT [facility] Anti-CCP Antibody Interpretation Negative Negative 12/19/2023 1:00 PM CDT [facility] Blood Venipuncture / Unknown 12/18/2023 3:21 PM CDT 12/18/2023 3:21 PM CDT Narrative [facility] - 12/19/2023 1:00 PM CDT This result was obtained with the Ui Linka 250. Quantitative results cannot be directly compared to other manufacturers' methods. Denise Davila MD LAB_1 [facility] [address] * (ABNORMAL) Protein ELP (Serum) (12/18/2023 3:21 PM CDT) Total Protein 6.9 6.4 - 8.3 g/dL 12/20/2023 10:36 AM T [facility] Albumin 4.3 3.4 - 4.8 g/dL 12/20/2023 10:36 AM T [facility] Alpha 1 0.4 0.2 - 0.5 g/dL 12/20/2023 10:36 AM T [facility] Alpha 2 0.9 0.5 - 1.1 g/dL 12/20/2023 10:36 AM [facility] Beta 0.7 0.6 - 1.1 g/dL 12/20/2023 10:36 AM [facility] Gamma 0.6(L) 0.7 - 1.6 g/dL 12/20/2023 10:36 AM T [facility] Monoclonal Vahid 0.0 <=0.0 g/dL 12/20/2023 10:36 AM [facility] Interpretation Borderline hypogammaglobuli nemia. Consider urine immunofixation to rule out Bence Orozco proteinuria. 12/20/2023 10:36 AM [facility] Signed Out By [facility] 12/20/2023 10:36 AM CDT [facility] Blood Venipuncture / Unknown 12/18/2023 3:21 PM CDT 12/18/2023 3:21 PM CDT Denise Davila MD LAB_1 Performing Organization Address [facility]/ZIP Co de Phone Number [facility] [address] [address] * Rheumatoid Factor, Quant (12/18/2023 3:21 PM CDT) Rheumatoid Factor, Quantitative <15 <=30 IU/mL 12/18/2023 9:03 PM CDT [facility] Blood Venipuncture / Unknown 12/18/2023 3:21 PM CDT 12/18/2023 3:21 PM CDT Denise Davila MD LAB_1 Performing Organization Address [facility] Co de Phone Number [facility] [address] * CK, Total (12/18/2023 3:21 PM CDT) CK, Total 65 29 - 168 U/L 12/20/2023 10:13 AM CDT [facility] Blood Venipuncture / Unknown 12/18/2023 3:21 PM CDT 12/18/2023 3:21 PM CDT Denise Davila MD LAB_1 Performing Organization Address [facility]/ZIP Co de Phone Number [facility] [address] [address] from Last 3 Months Care Teams Acute Coordinator Relationship Specialty Start Date End Date Clinician, Not Found, [place] [address] PCP - General 03/01/18
--- OUTSIDE RECORDS SUMMARY | 2024-03-12 09:33 | XMS_ITS | Encounter Summary ---
Author Organization [employer] Address [address] [address] Care Team Providers Care Mental Health Aides Teacher Name Role Phone Clinician, Not Found MD Primary Care Provider Un available Encounter Details Date Type Department Care Team (Late st Contact Info) Description 12/27/2023 Notes/Orders [place] [address] [place] [address]. [place], [place] [phone] Denise Davila MD [facility] [place], [place] [phone] Social History Tobacco Use Types Packs/Day Years [...] also seen by her primary yesterday at [facility].She is scheduled to have imaging study of her liver and echocardiogram. I called her primary Dr. Newton at phone number [phone] to discuss about her condition. I still could not reach Dr. Chandler and left her phone number to call me back. documented in this encounter Plan of Treatment Upcoming Encounters Date Type Department Care Team (Late st Contact Info) Description 04/25/2024 12:00 PM CDT [facility]ointment [facility] [address] [place] [address] [place] [address] [place] [address] 06/24/2024 12:00 PM MARINE GEAR KEEPER Appointment [facility] [address] [place] [address] Denise Davila MD [address] [place] [address] documented as of this encounter Visit Diagnoses Not on filedocumented in this encounter Care Teams Mental Health Aides Teacher Relationship Specialty Start Date End Date Clinician, Not Found, [place] [address] PCP - General 03/01/18 documented as of this encounter
--- OUTSIDE RECORDS SUMMARY | 2024-03-12 09:33 | XMS_ITS | Encounter Summary ---
Author Organization [employer] Address [address], [place] [address] Care Team Providers Care Sleeve Presser Operator Name Role Phone Clinician, Not Found MD Primary Care Provider Un available Reason for Visit * Reason Comments FYI Encounter Details Date Type Department Care Team (Late st Contact Info) Description 02/29/2024 Telephone [place] [address] [place] [address]. [place], [place] [address] Denise Davila MD [facility] [place], [place] [phone] FYI Social History Tobacco Use Types Packs/Day [...] to report that she was discharged from [facility] yesterday and patient was unsure of what [...] Info) Description 04/25/2024 12:00 PM CDT Appointment [facility] [address] [place] [address] Denise Davila MD [address] [place], [place] [phone] 06/24/2024 12:00 PM WATCH PARTS GRINDER Appointment [facility] [address] [place] [address] Denise Davila MD [address] [place], [place] [address] documented as of this encounter Visit Diagnoses Not on filedocumented in this encounter Care Teams Sleeve Presser Operator Relationship Specialty Start Date End Date Clinician, Not Found, [place] [address] PCP - General 03/01/18 documented as of this encounter
--- OUTSIDE RECORDS SUMMARY | 2024-03-12 09:33 | XMS_ITS | Encounter Summary ---
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 Procedures [facility] Denise Davila MD [address] [place] [address] Referral ID Status Reason Start Date Expiration Date V isits Requested Visits Authorized [id number] Incomplete 01/15/2024 04/15/2025 1 1 Reason for Visit * Reason Comments Follow-up Encounter Details Date Type Department Care Team (Late st Contact Info) Description 01/15/2024 2:30 PM CDT Office Visit [facility] [address] [place] [address] Denise Davila MD [address] [place], [place] [phone] PMR (polymyalgia rheumatica) (HRC) (Primary Dx); Chronic tophaceous gout; Osteoarthritis of multiple joints, unspecified osteoarthritis type; 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 She is about to see her manager philosophy in 2 days. 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 Expected: 01/15/2024 (Approximate), Expires: 01/14/2025 documented as of this encounter Results * (ABNORMAL) Creatinine / GFR (01/11/2024 10:22 AM CDT) Creatinine 1.79(H) 0.55 - 1.02 mg/dL 01/15/2024 5:35 PM CDT [facility] GFR, Estimated 28(L) >60 mL/min/1.7 3m2 01/15/2024 5:35 PM CDT [facility] Blood Venipuncture / Unknown 01/11/2024 10:22 AM CDT 01/11/2024 10:22 AM CDT Denise Davila MD LAB_1 [facility] [address] [place] [address], [facility] documented in this encounter Visit Diagnoses Diagnosis PMR (polymyalgia rheumatica) (HRC)- Primary Polymyalgia rheumatica 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
--- OUTSIDE RECORDS SUMMARY | 2024-03-12 09:33 | XMS_ITS | Encounter Summary ---
Author Organization [email or web address] Address [address], [place] [address] Care Team Providers Care Scourer Name Role Phone Clinician, Not Found MD Primary Care Provider Un available Encounter Details Date Type Department Care Team (Latest Contact Info) Description 01/02/2024 Orders Only HIM DEPARTMENT Provider, [place] [address] Social History Tobacco Use Types Packs/Day Years [...] Info) Description 04/25/2024 12:00 PM CDT Appointment [facility] [address] [place] [address] Denise Davila MD [address] [place] [address] 06/24/2024 12:00 PM FAST FOOD TEAM MEMBER Appointment [facility] [address] [place] [address] Denise Davila MD [address] [place] [address] documented as of this encounter Procedures Procedure Name Priority Date/Time Associated Diagnosis Comments LABORATORY REPORT 01/02/2024 documented in this encounter Results * LABORATORY REPORT (01/02/2024) Interface Provider DUMMY/OTHER/AR documented in this encounter Visit Diagnoses Not on filedocumented in this encounter Care Teams Scourer Relationship Specialty Start Date End Date Clinician, Not Found, [place] [address] PCP - General 03/01/18 documented as of this encounter
--- OUTSIDE RECORDS SUMMARY | 2024-03-12 09:33 | XMS_ITS | Encounter Summary ---
Author Organization [employer] Address [address] [address] Care Team Providers Care Foundry Superintendant Name Role Phone Clinician, Not Found MD Primary Care Provider Un available Reason for Visit * Reason Comments PHONE CALL TO PATIENT Encounter Details Date Type Department Care Team (Late st Contact Info) Description 12/19/2023 Telephone [place] [phone] Rheumatology [facility] [place], [place] [phone] Denise Davila MD [facility] [place], [place] [phone] PHONE CALL TO PATIENT Social History Tobacco [...] Sharita Henao - 12/19/2023 2:22 PM CDT [place] records received and placed in your inbox in BRINE TANK SEPARATOR OPERATOR. * Suir Stovall RN - 12/19/2023 10:24 AM CDT Spoke to patient, relaying provider's message below. Patient states that she notified the clinic yesterday to have results faxed over to us but she will reach out to them again today. * Denise Davila MD - 12/19/2023 9:59 AM CDT Please call to remind her to have outside records (from [facility] system) and lab results faxed to me to review documented in this encounter Plan of Treatment Upcoming Encounters Date Type Department Care Team (Late st Contact Info) Description 04/25/2024 12:00 PM CDT Appointment [facility] [address] [place] [address] Denise Davila MD [address] [place] [address] 06/24/2024 12:00 PM FISHER TRAWL LINE Appointment [facility] [address] [place] [address] Denise Davila MD [address] [place] [address] documented as of this encounter Visit Diagnoses Not on filedocumented in this encounter Care Teams Foundry Superintendant Relationship Specialty Start Date End Date Clinician, Not Found, [place] [address] PCP - General 03/01/18 documented as of this encounter
--- OUTSIDE RECORDS SUMMARY | 2024-03-12 09:34 | XMS_ITS | Encounter Summary ---
Author Organization [facility] Address [address], [place] [address] Care Team Providers Care Bulk Sealer Name Role Phone Clinician, Not Found MD Primary Care Provider Un available Encounter Details Date Type Department Care Team (Late st Contact Info) Description 12/18/2023 3:10 PM CDT Lab Visit [facility] [address] [place], [place] [phone] Arthralgia, unspecified joint Social History Tobacco Use [...] Info) Description 04/25/2024 12:00 PM CDT Appointment [facility] [address] [place] [address] Denise Davila MD [address] [facility] [place] [phone] 06/24/2024 12:00 PM WATER[facility]STER Appointment [facility] [address] [place] [address] Denise Davila MD [address] [place], [place] [phone] documented as of this encounter Procedures Procedure [...] Total (12/18/2023 3:21 PM CDT) Pathologist [facility] CK, Total 65 29 - 168 U/L 12/20/2023 10:13 AM CDT [email or web address] [employer] [facility] Blood Venipuncture / Unknown 12/18/2023 3:21 PM CDT 12/18/2023 3:21 PM CDT Denise Davila MD LAB_1 [facility] [address] * CCP Antibody (12/18/2023 3:21 PM CDT) Pathologist [facility] Anti-CCP Antibody 0.5 0.0 - 6.9 U/mL 12/19/2023 1:00 PM CDT [email or web address] [employer] [employer] [facility] Anti-CCP Antibody Interpretation Negative Negative 12/19/2023 1:00 PM CDT [facility] Blood Venipuncture / Unknown 12/18/2023 3:21 PM CDT 12/18/2023 3:21 PM CDT Narrative [facility] - 12/19/2023 1:00 PM CDT This result was obtained with the Phadia 250. Quantitative results cannot be directly compared to other manufacturers' methods. Denise Davila MD LAB_1 [facility] [address] * Rheumatoid Factor, Quant (12/18/2023 3:21 PM CDT) Rheumatoid Factor, Quantitative <15 <=30 IU/mL 12/18/2023 9:03 PM CDT [facility] Blood Venipuncture / Unknown 12/18/2023 3:21 PM CDT 12/18/2023 3:21 PM CDT Denise Davila MD LAB_1 Performing Organization Address [facility]/ZIP Co de Phone Number [facility] [address] * Sedimentation Rate (ESR) (12/18/2023 3:21 PM CDT) [facility] Sedimentation Rate 12 0 - 20 mm/hr 12/18/2023 3:55 PM CDT [facility] Blood Venipuncture / Unknown 12/18/2023 3:21 PM CDT 12/18/2023 3:21 PM CDT Denise Davila MD LAB_1 [facility] [address] [place] [address] * (ABNORMAL) C-Reactive Protein (12/18/2023 3:21 PM CDT) Pathologist [facility] C-Reactive Protein 1.4(H) 0.0 - 0.5 mg/dL 12/18/2023 5:10 PM T [facility] Blood Venipuncture / Unknown 12/18/2023 3:21 PM CDT 12/18/2023 3:21 PM CDT Denise Davila MD LAB_1 [facility] [address] [place] [address] * (ABNORMAL) Protein ELP (Serum) (12/18/2023 3:21 PM CDT) Total Protein 6.9 6.4 - 8.3 g/dL 12/20/2023 10:36 AM T [facility] Albumin 4.3 3.4 - 4.8 g/dL 12/20/2023 10:36 AM [facility] Alpha 1 0.4 0.2 - 0.5 g/dL 12/20/2023 10:36 AM T [facility] Alpha 2 0.9 0.5 - 1.1 g/dL 12/20/2023 10:36 AM T [facility] Beta 0.7 0.6 - [...] [facility] Signed Out By [facility] 12/20/2023 10:36 AM [facility] Blood Venipuncture / Unknown 12/18/2023 3:21 PM CDT 12/18/2023 3:21 PM CDT Denise Davila MD LAB_1 [employer] [facility] [address] [place], [place] [address] documented in this encounter Visit Diagnoses Diagnosis Arthralgia, unspecified joint documented in this encounter Care Teams Bulk Sealer Relationship Specialty Start Date End Date Clinician, Not Found, [place] [address] PCP - General 03/01/18 documented as of this encounter
--- OUTSIDE RECORDS SUMMARY | 2024-03-12 09:34 | XMS_ITS | Encounter Summary ---
Author Organization [facility] Address [address] [place] [address] Care Team Providers Care Production Department Supervisor Name Role Phone Clinician, Not Found MD Primary Care Provider Un available Reason for Visit * Reason Comments Refill Encounter Details Date Type Department Care Team (Late st Contact Info) Description 11/13/2023 Refill [facility] [address] [place], [place] [phone] Denise Davila MD [address] [place] [address] Refill Social History Tobacco Use [...] Info) Description 04/25/2024 12:00 PM CDT Appointment [facility] [address] [place] [address] Denise Davila MD [address] [place] [address] 06/24/2024 12:00 PM PRISM MEASURER Appointment [facility] [address] [place] [address] Denise Davila MD [address] [place] [address] documented as of this encounter Visit Diagnoses Diagnosis Osteoarthritis of multiple joints, unspecified osteoarthritis type documented in this encounter Care Teams Production Department Supervisor Relationship Specialty Start Date End Date Clinician, Not Found, [place] [address] PCP - General 03/01/18 documented as of this encounter
--- OUTSIDE RECORDS SUMMARY | 2024-03-12 09:34 | XMS_ITS | Clinical Summary ---
Author Organization [employer] [facility] [facility] Address [place], [place] [address] Care Team Providers Care Valuation Manager Name Role Phone Tamera Jimenez MD [...] right foot with fat layer exposed (HC) [phone] Squared Toe Post OP Shoe, Small 1 [...] Description 02/26/2024 2:00 PM CDT Ancillary Procedure [facility] & [address] [address] 02/25/2024 Telephone [facility] [address] [address] Omid Palacios MD 02/21/2024 Telephone [facility] [address] [phone] Moriah Zapata PA Care Coordination 02/18/2024 2:29 PM CDT Anesthesia Event [facility] [address] [address] Edmar Hernandez MD 02/18/2024 12:22 PM CDT - 02/18/2024 4:17 PM CDT Hospital Encounter [facility] [address] [place] [address] Mike Armando PA Kroll, ERICKSON Carvajal Mark L, MD 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); Left atrial thrombus Discharge Disposition: Home Self Care 02/18/2024 Travel 01/24/2024 12:43 PM CDT Anesthesia Event [facility] [address] [address] Dimitri Stahl MD Westen, Megan Joy, MD 01/24/2024 9:47 AM CDT - 01/28/2024 2:25 PM CDT Hospital Encounter [facility] [address] [place] [address] Vu Torres MD [facility], [facility] Yordan Gonzalez MD Barnard, Kayla Julia, PA Lefebvre, MD Tanisha Rowley Hani, MBBS Taylor, Phillip Norman, MD Mickley, Deborah Elaine, CRNA Acute systolic congestive heart failure (HC) (Primary Dx); Mitral valve stenosis, unspecified etiology; 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); Left atrial thrombus Discharge Disposition: Home Self Care 01/24/2024 Travel 01/23/2024 Telephone [facility] [address] [phone] Vu Torres MD Instruction 01/23/2024 Telephone [facility] [address] [place] [address] Vu Torres MD Appointment (Cardioversion) 01/17/2024 11:00 AM CDT Office Visit [facility] [address] [place] [address] Vu Torres MD 12/28/2023 9:00 AM CDT Ancillary Procedure [facility] [address] [place] [address] 12/12/2023 11:30 AM CDT Office Visit [facility] [address] [place] [address] Toney Winchester, DPM Ulcer (Follow up-right foot) [...] Appointment [facility] [address] [place] [address] 03/25/2024 12:00 PM CDT Appointment [facility] [address] [place] [address] Health Maintenance Due Date Last Done Comments [...] 09/24/2019, 03/26/2009 Medical Devices Implanted Type Area Program Support Assistant Device Identifier Shelf Expiration Date Model / Serial / Lot Simplex P Bone Cement - Half Dose Implanted:Qty: 2 on 10/18/2021 by Kevin Hogue MD at [facility] Left: Knee [employer] 07/12/2023 / 6188-1-001 / [id number] Tri[employer]lon Femoral Posterior Augment Implanted:Qty: 1 on 10/18/2021 by Kevin Hogue MD at [facility] Left: Knee [employer] 06/01/2025 / 5543-A-400 / [id number] Simplex P Bone Cement Full Dose Implanted:Qty: 2 on 10/18/2021 by Kevin Hogue MD at [facility] Left: Knee [employer] 09/12/2023 / [id number] / [id number] Triathlon Fluted Stem - Tibia Implanted:Qty: 1 on 10/18/2021 by Kevin Hogue MD at [facility] Left: Knee [employer] 10/09/2025 / [id number]-[id number] / [id number] Triathlon Tritanium Tibial Symmetric Cone Augment Implanted:Qty: 1 on 10/18/2021 by Kevin Hogue MD at [facility] Left: Knee [employer] 05/04/2026 / [id number]-A-130 / [id number] Triathlon Total Knee [place] Tibial Baseplate Implanted:Qty: 1 on 10/18/2021 by Kevin Hogue MD at [facility] Left: Knee [employer] 12/19/2025 / 5521-B-400 / [id number] Triathlon Fluted Stem - Femur Implanted:Qty: 1 on 10/18/2021 by Kevin Hogue MD at [facility] Left: Knee [employer] 06/15/2025 / [id number]-[id number]-016 / [id number] Triathlon Total Stabilizer Femoral Component Implanted:Qty: 1 on 10/18/2021 by Kevin Hogue MD at [facility] Left: Knee [employer] 01/16/2026 / 5512-F-401 / [id number] Triathlon X3 Total Stablizer+ Tibial Insert Implanted:Qty: 1 on 10/18/2021 by Kevin Hogue MD at [facility] Left: Knee [employer] 08/31/2026 / [id number]-G-416 -E / [id number] Triathlon Femoral Posterior Augment Implanted:Qty: 1 on 10/18/2021 by Kevin Hogue MD at [facility] Left: Knee [employer] 09/05/2025 / 5543-A-400 / [id number] Procedures [...] CDT ECHOCARDIOGRAM ABIMBOLA SAMUELS ? Accession#: ?? [id number] : ?1940 83 years Study Date: ?? 02/26/2024 1:57:08 PM Gender: F ?BP: ? 89/52 mmHg Height: 163.00 cm ?BSA: ?1.76 m? ? ? Weight: 70.00 kg ? Tech: ? MRC ? Referring MD: JAROCHO MCCORMICK Site: ? [facility] Reading Location: [facility] Patient Location: Inpatient. Procedure: Color Doppler, Limited [...] . This study was interpreted by an [facility] accredited facility. CC: HIM (med records) [facility], Med/Surg - IP [facility]. ??Final ?? Procedure Note Criselda Escobar MD - 02/26/2024 ECHOCARDIOGRAM ABIMBOLA SAMUELS : 1940 83 years Study Date: 02/26/2024 1:57:08 PM Gender: F BP: 89/52 mmHg Height: 163.00 cm BSA: 1.76 m? ? ? Weight: 70.00 kg Tech: [facility] Referring MD: JAROCHO MCCORMICK Site: [facility] Reading Location: [facility] Patient Location: Inpatient. Procedure: Color Doppler, Limited [...] . This study was interpreted by an [facility] accredited facility. CC: HIM (med records) [facility], Med/Surg - IP [facility]. Final Jarocho Mccormick MD ECHO ORD * ECHO RAMEZ WO CONTRAST W COLOR W LTD DOPPLER (02/18/2024 3:01 PM CDT) Only the most recent of2 resultswithin the time period is included. Anatomical Region Laterality Modality Ultrasound 02/18/2024 2:12 PM CDT Narrative 02/18/2024 3:32 PM CDT TRANSESOPHAGEAL ECHOCARDIOGRAM ABIMBOLA SAMUELS ? Accession#: ?? [id number] : ?1940 83 years Study Date: ?? 02/18/2024 2:12:35 PM Gender: F ?BP: ? 69/45 mmHg Height: 163.00 cm ?BSA: ?1.69 m? ? ? Weight: 64.00 kg ? Tech: ? CJG ? Referring MD: MIKE ARMANDO Site: ? [facility] Reading Location: [facility] IP Patient Location: [...] . This study was interpreted by an [facility] accredited facility. ??Final ?? Procedure Note Robert Dumont MD - 02/18/2024 TRANSESOPHAGEAL ECHOCARDIOGRAM ABIMBOLA SAMUELS : 1940 83 years Study Date: 02/18/2024 2:12:35 PM Gender: F BP: 69/45 mmHg Height: 163.00 cm BSA: 1.69 m? ? ? Weight: 64.00 kg Tech: [facility] Referring MD: MIKE ARMANDO Site: [facility] Reading Location: [facility] Patient Location: Inpatient. Procedure: RAMEZ, Color Doppler [...] . This study was interpreted by an [facility] accredited facility. Final Mike SHORT ECHO ORD * (ABNORMAL) PROTIME-INR (02/18/2024 1:45 PM CDT) Only the most recent of6 resultswithin the time period is included. INR 3.1(H) <1.3 02/18/2024 2:04 PM CDT [facility] PROTIME 33.9(H) 10.3 - 12.3 sec 02/18/2024 2:04 PM CDT [facility] Blood BLOOD SPECIMEN / Unknown Non-Lab Venipuncture / Unknown 02/18/2024 1:45 PM CDT 02/18/2024 1:51 PM CDT Narrative [facility] - 02/18/2024 2:04 PM CDT [...] UFH. Moriah SHORT HEMATOLOGY Performing Organization Address [facility] de Phone Number [facility] [address] [place] [address], [place] * POTASSIUM,ISTAT (02/18/2024 1:26 PM CDT) Only the most recent of2 resultswithin the time period is included. POTASSIUM, POCT 4.9 3.5 - 5.0 mmol/L 02/18/2024 1:48 PM CDT [facility] Blood BLOOD SPECIMEN / Unknown 02/18/2024 1:26 PM CDT 02/18/2024 1:48 PM CDT Mike SHORT CHEMISTRY Performing Organization Address [facility] Co de Phone Number [facility] [address] [place] [address], [place] * EKG 12 LEAD (02/18/2024 12:57 [...] NOW QTc 513 ms BEYOND NOW P Ririe degrees BEYOND NOW R Ririe 63 degrees BEYOND NOW T Ririe -37 degrees BEYOND NOW 02/18/2024 12:5 7 PM CDT 02/18/2024 8:12 PM CDT Narrative [facility] - 02/18/2024 8:12 PM CDT Test Indication: PRE DCCV Moriah SHORT EKG ORD Performing Organization Address City/[facility]/ZIP Co de Phone Number [facility] [place], [place] * SCAN-CARDIAC STRIP (01/28/2024 9:22 AM CDT) Scanner OTHER * (ABNORMAL) PLATELET COUNT (01/28/2024 5:39 AM CDT) [facility] PLATELET COUNT 151 140 - 440 thou/cu mm 01/28/2024 6:47 AM CDT [facility] MPV 13.3(H) 6.5 - 11.0 fL 01/28/2024 6:47 AM CDT [facility] Blood BLOOD SPECIMEN / Unknown Venipuncture / Unknown 01/28/2024 5:39 AM CDT 01/28/2024 6:38 AM CDT Joshua Boykin NP [facility] [address] [place] [address], * POTASSIUM (01/28/2024 5:39 AM CDT) Only the most recent of2 resultswithin the time period is included. Pathologist [facility] POTASSIUM 3.7 3.5 - 5.1 mmol/L 01/28/2024 7:59 AM CDT [facility] Blood BLOOD SPECIMEN / Unknown Venipuncture / Unknown 01/28/2024 5:39 AM CDT 01/28/2024 6:38 AM CDT Anais SHORT CHEMISTRY Performing Organization Address [facility]/ZIP Co de Phone Number [facility] [address] [address], [place] * (ABNORMAL) CREATININE (01/28/2024 5:39 AM CDT) Only the most recent of3 resultswithin the time period is included. Pathologist [facility] eGFR 34(L) >90 mL/min/1.7 3m2 01/28/2024 7:59 AM CDT [facility] Comment:As of 2021, eG FR is calculated by the CKD-EPI creatinine equation without race adjustment. ??eGFR can be influenced by muscle mass, exercise, and diet. ??The reported eGFR is an estimation only and is only applicable if the renal function is stable. CREATININE 1.51(H) 0.50 - 0.90 mg/dL 01/28/2024 7:59 AM CDT [facility] Blood BLOOD SPECIMEN / Unknown Venipuncture / Unknown 01/28/2024 5:39 AM CDT 01/28/2024 6:38 AM CDT Anais SHORT CHEMISTRY Performing Organization Address City/[facility]/ZIP Co de Phone Number [facility] [address] [place] [address], [place] * MAGNESIUM (01/28/2024 5:39 AM CDT) Only the most recent of3 resultswithin the time period is included. Pathologist [facility] MAGNESIUM 1.8 1.6 - 2.4 mg/dL 01/28/2024 10:02 AM CDT [facility] Blood BLOOD SPECIMEN / Unknown Venipuncture / Unknown 01/28/2024 5:39 AM CDT 01/28/2024 6:38 AM CDT Anais SHORT CHEMISTRY [facility] [address] [place] [address], * SCAN-CARDIAC STRIP (01/27/2024 9:10 PM CDT) [...] REFLEX MEASURED LDL (01/25/2024 5:56 AM CDT) [facility] CHOLESTEROL,TOTAL 174 100 - 199 mg/dL 01/25/2024 11:36 AM CDT [facility] Comment: Cholesterol, Total Reference Ranges Desirable <200 mg/dL Borderline 200-239 mg/dL High >=240 mg/dL TRIGLYCERIDES 114 <150 mg/dL 01/25/2024 11:36 AM CDT [facility] HDL CHOLESTEROL 58 >40 mg/dL 11:36 AM CDT [facility] NON-HDL CHOLESTEROL 116 <145 mg/dl 01/25/2024 11:36 AM CDT [facility] CHOL/HDL RATIO 3.00 <4.50 01/25/2024 11:36 AM CDT [facility] LDL CHOLESTEROL 93 <=130 mg/dL 01/25/2024 11:36 AM CDT [facility] VLDL CHOLESTEROL 23 <=30 mg/dL 01/25/2024 11:36 AM CDT [facility] PROVIDER ORDERED STATUS RANDOM 01/25/2024 11:36 AM T [facility] Blood BLOOD SPECIMEN / Unknown Venipuncture / Unknown 01/25/2024 5:56 AM CDT 01/25/2024 6:13 AM CDT Akosua Blanco NP CHEMISTRY [facility] [address] [place] [address], * (ABNORMAL) BASIC METABOLIC PANEL (01/25/2024 5:56 AM CDT) Only the most recent of2 resultswithin the time period is included. SODIUM 144 136 - 145 mmol/L 01/25/2024 6:38 AM T [facility] POTASSIUM 4.2 3.5 - 5.1 mmol/L 01/25/2024 6:38 AM T [facility] CHLORIDE 105 98 - 107 mmol/L 01/25/2024 6:38 AM [facility] CO2,TOTAL 26 22 - 29 mmol/L 01/25/2024 6:38 AM T [facility] ANION GAP 13 5 - 18 01/25/2024 6:38 AM T [facility] GLUCOSE 84 70 - 99 mg/dL 01/25/2024 6:38 AM T [facility] CALCIUM 9.7 8.8 - 10.2 mg/dL 01/25/2024 6:38 AM T [facility] BUN 37(H) 8 - 23 mg/dL 01/25/2024 6:38 AM T [facility] CREATININE 1.40(H) 0.50 - 0.90 mg/dL 01/25/2024 6:38 AM CDT [facility] BUN/CREAT RATIO 26(H) 10 - 20 6:38 AM CDT [facility] eGFR 37(L) >90 mL/min/1.7 3m2 01/25/2024 6:38 AM CDT [facility] Comment:As of 2021, eG [...] 01/25/2024 6:13 AM CDT Anais SHORT CHEMISTRY [facility] [address] [place] [address], * SCAN-CARDIAC STRIP (01/24/2024 8:08 PM CDT) Scanner OTHER * SCAN-CARDIAC STRIP (01/24/2024 6:16 PM CDT) Scanner OTHER * TSH (01/24/2024 11:05 AM CDT) TSH 1.42 0.27 - 4.20 uIU/mL 01/24/2024 6:11 PM CDT [facility] Blood BLOOD SPECIMEN / Unknown Butterfly / Unknown 01/24/2024 11:05 AM CDT 01/24/2024 11:13 AM CDT Narrative [facility] - 01/24/2024 6:11 PM CDT In Adults, TSH values between 5.00 and 10.00 uIU/ml do not necessarily indicate the presence of Hypothyroidism. Correlation with clinical findings such as presence of goiter and/or Thyroperoxidase (TPO) Antibody may be helpful. For more information please refer to SHABANA 2004; 291: 228-238. Anais SHORT CHEMISTRY [facility] [address] [place] [address], [place] * ECHO TTE COMPLETE WO CONTRAST (12/28/2023 9:58 AM CDT) AORTIC VALVE MEAN PG 4 mmHg PEAK TR VELOCITY 3.2 m/s LVEDD 3.5 cm EJECTION FRACTION 55 - 60% Anatomical Region Laterality Modality Ultrasound 12/28/2023 9:13 AM CDT Narrative 12/28/2023 10:52 AM CDT ECHOCARDIOGRAM ABIMBOLA SAMUELS ? Accession#: ?? [id number] : ?1940 83 years Study Date: ?? 12/28/2023 9:13:23 AM Gender: F ?BP: ? 147/88 mmHg Height: 163.00 cm ?BSA: ?1.71 m? ? ? Weight: 66.00 kg ? Tech: ? MBF ? Referring MD: TAMERA JIMENEZ Site: ? [facility] Reading Location: Mobile [facility] Patient Location: Outpatient. Procedure: 2D, Color [...] cm? ? ? VTI ?0.33 m ?? IVKTORIYA (I) ?? 0.94 cm? ? ? LVOT [...] AM. This study was interpreted by an [facility] accredited facility. CC: HIM ([facility]) [facility]. ??Final (Updated) ?? Procedure Note Chandrakant Tomas MD - 12/28/2023 ECHOCARDIOGRAM ABIMBOLA SAMUELS : 1940 83 years Study Date: 12/28/2023 9:13:23 AM Gender: F BP: 147/88 mmHg Height: 163.00 cm BSA: 1.71 m? ? ? Weight: 66.00 kg Tech: EMETERIO Referring MD: TAMERA JIMENEZ Site: [facility] Reading Location: [facility] Patient Location: Outpatient. Procedure: 2D, [...] interpreted by an [facility] accredited facility. CC: [facility] ([facility]) [facility]. Final (Updated) Tamera Jimenez MD ECHO ORD from Last 3 Months Advance Directives Documents on File Type Date Recorded Patient Urban Planner Expl anation Healthcare Directive 10/20/2021 8:51 AM [...] Preferences, Provider to review later Care Teams Valuation Manager Relationship Specialty Start Date End Date Tamera Jimenez MD [address] [facility] [place] [address] PCP - General Family Practice 10/24/23
--- OUTSIDE RECORDS SUMMARY | 2024-03-12 09:34 | XMS_ITS | Encounter Summary ---
Author Organization [employer] ([employer]) Address [address] [place] [address] Care Team Providers Care Analysis Consultant Name Role Phone Clinician, Not Found MD Primary Care Provider Un available Reason for Visit * Reason Comments Follow-up Encounter Details Date Type Department Care Team (Late st Contact Info) Description 12/18/2023 2:30 PM CDT Office Visit [facility] [place] [address] [place] [address] Denise Davila MD [facility] [place], [place] [phone] Chronic tophaceous gout (Primary Dx); Osteoarthritis of [...] with her primary care provider in the [facility] system. She was told to have [...] Info) Description 04/25/2024 12:00 PM CDT Appointment [facility] [address] [place], [place] [address] Denise Davila MD [address] [place] [address] 06/24/2024 12:00 PM SEED ANALYSIS LABORATORY ASSISTANT Appointment [facility] [address] [place], [place] [address] Denise Davila MD [address] [place], [place] [phone] documented as of this encounter Results * CCP Antibody (12/18/2023 3:21 PM CDT) [facility] Anti-CCP Antibody 0.5 0.0 - 6.9 U/mL 12/19/2023 1:00 PM CDT [facility] Anti-CCP Antibody Interpretation Negative Negative 12/19/2023 1:00 PM CDT [facility] Blood Venipuncture / Unknown 12/18/2023 3:21 PM CDT 12/18/2023 3:21 PM CDT Narrative [facility] - 12/19/2023 1:00 PM CDT This result was obtained with the Phadia 250. Quantitative results cannot be directly compared to other manufacturers' methods. Denise Davila MD LAB_1 [facility] [address] * Rheumatoid Factor, Quant (12/18/2023 3:21 PM CDT) [facility] Rheumatoid Factor, Quantitative <15 <=30 IU/mL 12/18/2023 9:03 PM CDT [facility] Blood Venipuncture / Unknown 12/18/2023 3:21 PM CDT 12/18/2023 3:21 PM CDT Denise Davila MD LAB_1 [facility] [address] [place], [place] [address] * Sedimentation Rate (ESR) (12/18/2023 3:21 PM CDT) Pathologist [facility] Sedimentation Rate 12 0 - 20 mm/hr 12/18/2023 3:55 PM CDT [facility] Blood Venipuncture / Unknown 12/18/2023 3:21 PM CDT 12/18/2023 3:21 PM CDT Denise Davila MD LAB_1 Performing Organization Address [facility]/ZIP Co de Phone Number [address] [phone] * (ABNORMAL) C-Reactive Protein (12/18/2023 3:21 PM CDT) Pathologist [facility] C-Reactive Protein 1.4(H) 0.0 - 0.5 mg/dL 12/18/2023 5:10 PM CDT [facility] Blood Venipuncture / Unknown 12/18/2023 3:21 PM CDT 12/18/2023 3:21 PM CDT Denise Davila MD LAB_1 Performing Organization Address [facility]/ZIP Co de Phone Number [address] [phone] * (ABNORMAL) Protein ELP (Serum) (12/18/2023 3:21 PM CDT) Pathologist [facility] Total Protein 6.9 6.4 - 8.3 g/dL 12/20/2023 10:36 AM CDT [facility] Albumin 4.3 3.4 - 4.8 g/dL 12/20/2023 10:36 AM CDT [facility] Alpha 1 0.4 0.2 - 0.5 g/dL 12/20/2023 10:36 AM CDT [facility] Alpha 2 0.9 0.5 - 1.1 g/dL 12/20/2023 10:36 AM CDT [facility] Beta 0.7 0.6 - 1.1 g/dL 12/20/2023 10:36 AM CDT [facility] Gamma 0.6(L) 0.7 - 1.6 g/dL 12/20/2023 10:36 AM CDT [facility] Monoclonal Vahid 0.0 <=0.0 g/dL 12/20/2023 10:36 AM CDT [facility] Interpretation Borderline hypogammaglobuli nemia. Consider urine immunofixation to rule out Bence Orozco proteinuria. 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
== END 2024-03-11 09:43 | disposition home or self-care (01) ==
LOC: NFLDREF 03-12 09:30
PROVIDERS: PCP Family Medicine; Referring Provider Family Medicine; Visit Provider Family Medicine
DX: Z79.01 Long term (current) use of anticoagulants (principal)
CPT/HCPCS: 85610

== ENCOUNTER 2024-03-18 09:28 | Outpatient (CLI) | payer MEDICARE, OTHER, SELFPAY ==
--- NOTE | 2024-03-18 09:45 | CRLHL7_ITS ---
For Patients: As a result of the Century Cures Act, medical imaging exams and procedure reports are released immediately into your electronic medical record. You may view this report before your referring provider. If you have questions, please contact your health care provider. INDICATION: abnormal findings of blood chemical COMPARISON: none TECHNIQUE: Real time meléndez scale imaging and color Doppler analysis was performed of the right upper quadrant. FINDINGS: The patient`s liver is of normal size and has uniform echogenicity. There is a normal appearance of the hepatic IVC and proximal abdominal aorta. There is no evidence of ascites. The gallbladder is of normal size and there is no evidence of intraluminal stones or sludge. The gallbladder wall measures 2.8 mm in thickness. The common bile duct is of normal size and measures 4.6 mm in diameter at the level of the maria ines hepatis. The pancreas appears normal. Right pelviectasis measuring 1 cm. The right kidney measures 8.7 cm in length. IMPRESSION: Right renal pelviectasis measuring 1 cm. Remainder unremarkable. Dictated by Chandrakant Anton MD @ 03/18/2024 12:31:07 PM (Electronically Signed)
== END 2024-03-18 09:29 | disposition home or self-care (01) ==
LOC: US 09:29
PROVIDERS: PCP Family Medicine; Visit Provider Family Medicine
DX: R79.89 Other specified abnormal findings of blood chemistry (principal)
CPT/HCPCS: 76705

== ENCOUNTER 2024-04-10 10:15 | Outpatient (CLI) | payer MEDICARE, OTHER, SELFPAY ==
--- OUTSIDE RECORDS SUMMARY | 2024-04-10 12:58 | XMS_ITS | Encounter Summary ---
Author Organization [employer] Address [address], [place] [address] Care Team Providers Care Resist Coater Developer Name Role Phone Clinician, Not Found MD Primary Care Provider Un available Reason for Visit * Reason Comments FYI Encounter Details Date Type Department Care Team (Late st Contact Info) Description 02/29/2024 Telephone Rheumatology at [address] [place], [place] [phone] Denise Davila MD [address] [place] [phone] FYI Social History Tobacco Use Types Packs/Day [...] to report that she was discharged from [facility] yesterday and patient was unsure [...] Info) Description 04/25/2024 12:00 PM CDT Appointment Rheumatology at [facility] [place] [address] [address] [address] [place] [address] Denise Davila MD [address] [place] [address] 06/24/2024 12:00 PM PAYROLL ADMINISTRATOR Appointment [facility] [address] [place] [address] Denise Davila MD [address] [place] [address] documented as of this encounter Visit Diagnoses Not on filedocumented in this encounter Care Teams Resist Coater Developer Relationship Specialty Start Date End Date Clinician, Not Found, [place] [address] PCP - General 03/01/18 documented as of this encounter
--- OUTSIDE RECORDS SUMMARY | 2024-04-10 12:58 | XMS_ITS | Clinical Summary ---
Author Organization [facility] Address [address], [place] [address] Care Team Providers Care Parts Washer Name Role Phone Clinician, Not Found MD Primary Care Provider Un available Source Comments You are receiving this document as you are listed as the primary care provider,follow-up provider, or the patient has been referred to you for consultation.This is in compliance with the Medicare andOhiohealth Van Wert Hospitalcaid EHR Incentive Program,which states Providers who transition their patient to another setting of careor provider of care or refers their patient to another provider of care shouldprovide summary care record for each transition of care or referral. 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 Renal insufficiency 10/01/2020 Hyperuricemia 09/10/2020 S/P total knee arthroplasty, bilateral 8 S/P appendectomy 03/29/2018 Restless legs syndrome (RLS) 03/29/2018 Chronic left shoulder pain 03/29/2018 Psoriatic arthritis 03/29/2018 Sensorineural hearing loss 02/22/2005 Overview (04/04/2017): LW Onset: [id number] ; Hearing Loss Sensorineural Undiagnosed cardiac murmurs 02/22/2005 Overview (04/04/2017): LW Modifier: functional LW Onset: [id number] ; Heart Murmur Right bundle branch block 02/22/2005 Overview (03/16/2016): LW Onset: 15Hxp94 Obesity 05/04/2004 Overview (03/16/2016): LW Onset: 34Jgw09 Essential hypertension 01/17/2003 Overview (04/04/2017): Hypertension Hypothyroidism 01/17/2003 Overview (04/04/2017): Hypothyroidism Acquired Osteoarthritis 01/17/2003 Overview (04/04/2017): DJD Chronic kidney disease, stage 3b Encounters Date Type Department Care Team Description 03/27/2024 Telephone Rheumatology at [address] [place] [address] Denise Davila MD Medication Questions 02/29/2024 Telephone Rheumatology at [address] [place] [address] Denise Davila MD FYI 01/15/2024 2:30 PM CDT Office Visit Rheumatology at [facility] [place] [address] [address] [address] [place] [address] Denise Davila MD PMR (polymyalgia rheumatica) (HRC) (Primary Dx); Chronic tophaceous gout; Osteoarthritis of multiple joints, unspecified osteoarthritis type; fountain server 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; Persistent atrial fibrillation (HRC) 01/11/2024 10:20 AM CDT Lab Visit [facility] [address] [place] [address] PMR (polymyalgia rheumatica) ([facility]); Chronic tophaceous gout from Last 3 Months Immunizations Name Administration Dates Next Due Flu Vac Preserv Free (3+yrs) 04/21/2013, 04/28/2009,05/21/2006,2004,05/04/2004 Influenza IIV3 (Trivalent) F luzone Highdose, 65+ Yrs (45487) 06/15/2020,07/01/2019,05/27/2018,2017,05/30/2017,05/15/2016,04/28/2014 Influenza IIV4 (Quadrivalent ) Fluad, 65+ [...] 04/25/2024 12:00 PM CDT Appointment Rheumatology at [facility] [place] [address] [address] [address] [place] [address] Denise Davila MD [address] [place] [address] 06/24/2024 12:00 PM GRIP ASSEMBLER Appointment [facility] [address] [place] [address] Denise Davila MD [address] [place], [place] [phone] Health Maintenance Due Date Last Done Comments [...] :22 AM CDT PMR (polymyalgia rheumatica) (HRC) from Last 3 Months Results * (ABNORMAL) Creatinine / GFR (01/11/2024 10:22 AM CDT) Creatinine 1.79(H) 0.55 - 1.02 mg/dL 01/15/2024 5:35 PM CDT [facility] GFR, Estimated 28(L) >60 mL/min/1.7 3m2 01/15/2024 5:35 PM CDT [facility] Blood Venipuncture / Unknown 01/11/2024 10:22 AM CDT 01/11/2024 10:22 AM CDT Denise Davila MD LAB_1 Performing Organization Address City/[facility]/ZIP Co de Phone Number [facility] [address] [place] [address] * C-Reactive Protein (01/11/2024 10:22 AM CDT) C-Reactive Protein <0.5 0.0 - 0.5 mg/dL 01/11/2024 11:45 AM CDT [facility] Blood Venipuncture / Unknown 01/11/2024 10:22 AM CDT 01/11/2024 10:22 AM CDT Denise Davila MD LAB_1 [facility] [address] [place] [address], [facility] * Sedimentation Rate (ESR) (01/11/2024 10:22 AM CDT) Sedimentation Rate 3 0 - 20 mm/hr 01/11/2024 11:05 AM CDT [facility] Blood Venipuncture / Unknown 01/11/2024 10:22 AM CDT 01/11/2024 10:22 AM CDT Denise Davila MD LAB_1 Performing Organization Address [facility]/ZIP Co de Phone Number [facility] [address] [place] [address] from Last 3 Months Care Teams Parts Washer Relationship Specialty Start Date End Date Clinician, Not Found, [place] [address] PCP - General 03/01/18
--- OUTSIDE RECORDS SUMMARY | 2024-04-10 12:58 | XMS_ITS | Encounter Summary ---
Author Organization [employer] Address [address], [place] [address] Care Team Providers Care Sonographer Name Role Phone Clinician, Not Found MD Primary Care Provider Un available Encounter Details Date Type Department Care Team (Latest Contact Info) Description 01/02/2024 Orders Only HIM DEPARTMENT Provider, [place] [address] Social History Tobacco Use Types Packs/Day Years [...] 04/25/2024 12:00 PM CDT Appointment Rheumatology at [facility] [place] [address] [address] [address] [place] [address] [place] [address] [place] [address] 06/24/2024 12:00 PM MOTOR EQUIPMENT LIEUTENANT Appointment [facility] [address] [place] [address] Denise Davila MD [address] [place] [address] documented as of this encounter Procedures Procedure Name Priority Date/Time Associated Diagnosis Comments LABORATORY REPORT 01/02/2024 documented in this encounter Results * LABORATORY REPORT (01/02/2024) Interface Provider DUMMY/OTHER/AR documented in this encounter Visit Diagnoses Not on filedocumented in this encounter Care Teams Sonographer Relationship Specialty Start Date End Date Clinician, Not Found, [place] [address] PCP - General 03/01/18 documented as of this encounter
--- OUTSIDE RECORDS SUMMARY | 2024-04-10 12:58 | XMS_ITS | Encounter Summary ---
Author Organization [employer] Address [address], [place] [address] Care Team Providers Care Administrative Assistant Front Desk Name Role Phone Clinician, Not Found MD Primary Care Provider Un available Reason for Referral * Procedure/Equipment (Routine) - Incomplete Specialty Diagnoses / Procedures Referred By Contanita t Referred To Contact Diagnoses meterman 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 Procedures [facility] Spine/Hip Denise Davila MD [address] [place] [address] Referral ID Status Reason Start Date Expiration Date V isits Requested Visits Authorized [id number] Incomplete 01/15/2024 04/15/2025 1 1 Reason for Visit * Reason Comments Follow-up Encounter Details Date Type Department Care Team (Late st Contact Info) Description 01/15/2024 2:30 PM CDT Office Visit Rheumatology at [facility] [address] [address] Denise Davila MD [address] [place] [address] PMR (polymyalgia rheumatica) (HRC) (Primary Dx); Chronic tophaceous gout; Osteoarthritis of multiple joints, unspecified osteoarthritis type; senior living 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; Persistent atrial [...] Eliquis. She is about to see her marketing compliance manager in 2 days. She was also found [...] 04/25/2024 12:00 PM CDT Appointment Rheumatology at [facility] [place] [address] [address] [address] [place], [place] [address] Denise Davila MD [address] [place] [address] 06/24/2024 12:00 PM NIKE ATHLETE Appointment [place] [facility] [address] [place], [place] [address] Denise Davila MD [address] [place], [place] [address] Scheduled Orders Name Type Priority Associated Diagnoses Orde r Schedule [facility] Spine/Hip Imaging New Routine meterman 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 Expected: 01/15/2024 (Approximate), Expires: 01/14/2025 documented as of this encounter Results * (ABNORMAL) Creatinine / GFR (01/11/2024 10:22 AM CDT) [facility] Creatinine 1.79(H) 0.55 - 1.02 mg/dL 01/15/2024 5:35 PM CDT [facility] GFR, Estimated 28(L) >60 mL/min/1.7 3m2 01/15/2024 5:35 PM CDT [facility] Blood Venipuncture / Unknown 01/11/2024 10:22 AM CDT 01/11/2024 10:22 AM CDT Denise Davila MD LAB_1 [facility] [address] [place] [address] documented in this encounter Visit Diagnoses Diagnosis PMR (polymyalgia rheumatica) (HRC)- Primary Polymyalgia rheumatica 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) Osteoarthritis of multiple joints, unspecified osteoarthritis type meterman 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 Encounter for long-term (current) use of steroids Persistent atrial fibrillation (HRC) Atrial fibrillation PMR (polymyalgia rheumatica) (HRC)- Primary Polymyalgia rheumatica 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
--- OUTSIDE RECORDS SUMMARY | 2024-04-10 12:58 | XMS_ITS | Encounter Summary ---
Author Organization [employer] Address [address] [address] Care Team Providers Care Field Software Engineer Name Role Phone Clinician, Not Found MD Primary Care Provider Un available Reason for Visit * Reason Comments Medication Questions Encounter Details Date Type Department Care Team (Late st Contact Info) Description 03/27/2024 Telephone Rheumatology at [address] [place], [place] [phone] Denise Davila MD [address] [place] [address] Medication Questions Social History Tobacco Use Types Packs/Day Years Used Date Smoking Tobacco: Never Smokeless Tobacco: Never Alcohol Use Standard Drinks/Week Comments Yes 0 (1 standard drink = 0.6 oz pur e alcohol) Sex and Gender Information Value Date Recorded Sex Assigned at Not on file Gender Identity Not on file Sexual Orientation Not on file documented as of this encounter Nursing Notes * Rosette Matthews RN - 03/27/2024 10:53 AM CDT Spoke with pt, given this information and verbalized understanding. Pt states she has enough prednisone 5 mg tabs and does not need a refill. * Denise Davila MD - 03/27/2024 10:47 AM CDT She should take 10 mg/d, NOT 2 mg/d. Let me know if she needs 5-mg prednisone tab. * Rosette Matthews RN - 03/27/2024 10:17 AM CDT Pt calling to report that she was seen in [facility] on 03/25/24 for RAMEZ and cardioversion. Pt states after this visit, she was discharged with a change in her prednisone order. Pt states they the physician at [facility] ordered for her to take 2 mg prednisone daily (see notes from 03/25/24 in CareEverywhere). Pt is currently supposed to be taking 10 mg prednisone daily. Per your visit note on 01/15/24 I would recommend that she taper prednisone further down by 2.5 mg every 2 weeks to 10 mg a day and she will stay at that dose. Pt wonders what dose of prednisone she should be taking currently? Pt states that she would need a Rx of 1 mg tabs sent by you if she is to take 2 mg daily. Please advise. Pharmacy verified. documented in this encounter Plan of Treatment Upcoming Encounters Date Type Department Care Team (Late st Contact Info) Description 04/25/2024 12:00 PM CDT Appointment Rheumatology at [facility] [place] [address] [place] [address] [place], [place] [address] Denise Davila MD [address] [place], [place] [id number] 06/24/2024 12:00 PM FILTROSE CRUSHER Appointment [facility] [address] [place], [place] [address] Denise Davila MD [address] [place], [place] [phone] documented as of this encounter Visit Diagnoses Not on filedocumented in this encounter Care Teams Field Software Engineer Relationship Specialty Start Date End Date Clinician, Not Found, [place] [address] PCP - General 03/01/18 documented as of this encounter
--- OUTSIDE RECORDS SUMMARY | 2024-04-10 12:58 | XMS_ITS | Encounter Summary ---
Author Organization [facility] [employer] Address [address] [address] Care Team Providers Care Computer Education Teacher Name Role Phone Clinician, Not Found MD Primary Care Provider Un available Encounter Details Date Type Department Care Team (Late st Contact Info) Description 01/11/2024 10:20 AM CDT Lab Visit [facility] [address] [place] [address] PMR (polymyalgia rheumatica) (HRC); Chronic tophaceous gout [...] 04/25/2024 12:00 PM CDT Appointment Rheumatology at [facility] [place] [address] [address] [address] [place] [address] Denise Davila MD [facility] [place] [address] 06/24/2024 12:00 PM CUSTOMER QUALITY ENGINEER Appointment [facility] [address] [place] [address] Denise Davila MD [address] [place] [address] documented as of this encounter Procedures Procedure [...] - 1.02 mg/dL 01/15/2024 5:35 PM CDT [facility] GFR, Estimated 28(L) >60 mL/min/1.7 3m2 01/15/2024 5:35 PM CDT [facility] Blood Venipuncture / Unknown 01/11/2024 10:22 AM CDT 01/11/2024 10:22 AM CDT Denise Davila MD LAB_1 Performing Organization Address City/[facility]/ZIP Co de Phone Number [facility] [address] [place] [address] * Sedimentation Rate (ESR) (01/11/2024 10:22 AM CDT) Sedimentation Rate 3 0 - 20 mm/hr 01/11/2024 11:05 AM CDT [facility] Blood Venipuncture / Unknown 01/11/2024 10:22 AM CDT 01/11/2024 10:22 AM CDT Denise Davila MD LAB_1 [facility] [address] [place] [address] * C-Reactive Protein (01/11/2024 10:22 AM CDT) C-Reactive Protein <0.5 0.0 - 0.5 mg/dL 01/11/2024 11:45 AM CDT [facility] Blood Venipuncture / Unknown 01/11/2024 10:22 AM CDT 01/11/2024 10:22 AM CDT Denise Davila MD LAB_1 Performing Organization Address [facility] Co de Phone Number [facility] [address] [place] [address] documented in this encounter Visit Diagnoses Diagnosis PMR (polymyalgia rheumatica) (HRC) Polymyalgia rheumatica 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
--- OUTSIDE RECORDS SUMMARY | 2024-04-10 12:59 | XMS_ITS | Clinical Summary ---
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 0 01/20/20 15 Active atorvastatin (LIPITOR) 40 mg tablet Take 40 mg by mouth at bedtime. 0 11/14/19 19 Active levothyroxine (SYNTHROID) 75 mcg tablet Take 1 Tablet by mouth before breakfast. 10/04/19 22 Active allopurinoL (ZYLOPRIM) 100 mg tablet Take 200 mg by mouth once daily. Active acetaminophen (TYLENOL EXTRA STRGTH) 500 mg tablet Take 1,000 mg by mouth at bedtime. Max acetaminophen dose: 4000mg in 24 hrs. 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 30 Tablet 1 01/28/20 24 Active predniSONE (DELTASONE) 1 mg tablet Take 2 mg by mouth once daily with a meal. Active warfarin (COUMADIN) 5 mg tabletIndication s:Left atrial thrombus Take 0.5 Tablets (2.5 mg) by mouth once daily. Until directed by anticoagulation clinic. 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 03/25/20 24 Active metoprolol succinate (TOPROL XL) 25 mg Sustained-Releas e tabletIndication s:Persistent atrial fibrillation (HC),Cardiomyopa thy, unspecified type (HC) Take 1 Tablet (25 mg) by mouth two times daily. 60 Tablet 2 03/25/20 24 Active amiodarone (CORDARONE) 200 mg tabletIndication s:Persistent atrial fibrillation (HC) Take 2 Tablets (400 mg) by mouth two times daily. 03/31/2024: Reduce to 1 tablet (200 mg) by mouth twice daily. 04/14/2024: Reduce to 1 tablet (200 mg) by mouth once daily. 60 Tablet 2 03/25/20 24 Active lisinopril (PRINIVIL; ZESTRIL) 40 mg tablet Take 1 tablet by mouth once daily. 0 01/20/20 15 024 Discontinued(*P atient states no longer taking) amLODIPine (NORVASC) 5 mg tablet Take 5 mg by mouth once daily. 08/09/20 17 024 Discontinued(*P atient states no longer taking) predniSONE (DELTASONE) 5 mg tablet Take 17.5 mg by mouth once daily. 10/03/19 22 024 Discontinued(*A vailability/For mulary change/Cost of medication) cyanocobalamin (Vitamin B-12) 100 mcg tablet Take 100 mcg by mouth once daily. 024 Discontinued(*P atient states no longer taking) calcium carbonate-vitami n D 250 mg-3.125 mcg (125 unit) tab Take 1 Tablet by mouth two times daily. 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 60 Tablet 1 01/28/20 24 024 Discontinued(*I P Discontinued) enoxaparin (LOVENOX) 80 mg/0.8 mL injectionIndicat ions:Left atrial thrombus Inject 70 mg subcutaneous, daily evening until your INR is greater than 2.0. 5 mL 01/28/20 24 024 Discontinued(*M ed complete/Regime n complete/Level of care change) warfarin (COUMADIN) 5 mg tabletIndication s:Left atrial thrombus Take 1 Tablet (5 mg) by mouth once daily. Until directed by anticoagulation clinic. 14 Tablet 02/18/20 24 024 Discontinued digoxin (LANOXIN) 125 mcg (0.125 mg) tablet Take 125 mcg by mouth once daily. 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 10/10/2021 Hypertension Hypothyroidism Hypercholesteremia HLD (hyperlipidemia) Neuropathy Rheumatoid arthritis RLS (restless legs syndrome) Encounters Date Type Department Care Team Description 03/25/2024 12:40 PM CDT Anesthesia Event [facility] [address] [place] [address] Shell Velasco MD Wilson, Timothy Eric, CRNA 03/25/2024 10:28 AM CDT - 03/25/2024 2:35 PM CDT Hospital Encounter [facility] [address] [place] [address] Moriah Zapata PA Anderson, Tana Garcia MD Persistent atrial fibrillation (HC) (Primary Dx); Left atrial thrombus; 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); Cardiomyopathy, unspecified type (HC) Discharge Disposition: Home Self Care 03/25/2024 Travel 03/17/2024 Telephone [facility] [address] [place] [address] Cardiology, Anw Cardiology Appointment 02/26/2024 2:00 PM CDT Ancillary Procedure [facility] & [address] [address] 02/25/2024 Telephone [facility] [address] [place] [address] Omid Palacios MD 02/21/2024 Telephone [facility] [address] [place] [address] Moriah Zapata PA Care Coordination 02/18/2024 2:29 PM CDT Anesthesia Event [facility] [address] [place] [address] Edmar Hernandez MD 02/18/2024 12:22 PM CDT - 02/18/2024 4:17 PM CDT Hospital Encounter [facility] [address] [place] [address] Mike Armando PA Kroll, Sharon Marie, CRNA Milshteyn, Mark L, MD 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); Left atrial thrombus Discharge Disposition: Home Self Care 02/18/2024 Travel 01/24/2024 12:43 PM CDT Anesthesia Event [facility] [address] [place] [address] Dimitri Stahl MD Westen, Megan Joy, MD 01/24/2024 9:47 AM CDT - 01/28/2024 2:25 PM CDT Hospital Encounter [facility] [address] [place] [address] Vu Torres MD [facility] [place] Lisa, MD Jhon Heredia Kayla Julia, PA Lefebvre, MD Tanisha Rowley Hani, MBBS Taylor, Phillip Norman, MD Mickley, Deborah Elaine, CRNA Acute systolic congestive heart failure (HC) (Primary Dx); Mitral valve stenosis, unspecified etiology; 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); Left atrial thrombus Discharge Disposition: Home Self Care 01/24/2024 Travel 01/23/2024 Telephone [facility] [address] [facility] [address] [place] [phone] Vu Torres MD Instruction 01/23/2024 Telephone [facility] [address] [address] Vu Torres MD Appointment (Cardioversion) 01/17/2024 11:00 AM CDT [facility] & [address] [address] Vu Torres MD from Last 3 Months Immunizations Name Administration [...] Sign Reading Time Taken Comments Blood Pressure 117/68 03/25/2024 1:45 PM CDT Pulse 76 03/25/2024 1:31 PM CDT Temperature 36.1 ??C (97 ??F) 03/25/2024 1:45 PM CDT Respiratory Rate 17 03/25/2024 1:45 PM CDT Oxygen Saturation 98% 03/25/2024 1:31 PM CDT Inhaled Oxygen Concentration - - Weight 63.5 kg (140 lb) 03/25/2024 10:58 AM CDT Height 162.6 cm (5' 4) 03/25/2024 10:58 AM CDT Body Mass Index 24.03 03/25/2024 10:58 AM CDT Plan of Treatment Health Maintenance [...] 09/24/2019, 03/26/2009 Medical Devices Implanted Type Area Yardage Estimator Device Identifier Shelf Expiration Date Model / Serial / Lot Simplex P Bone Cement - Half Dose Implanted:Qty: 2 on 10/18/2021 by Kevin Hogue MD at [facility] Left: Knee [employer] 07/12/2023 / [id number] / [id number] Triathlon Femoral Posterior Augment Implanted:Qty: 1 on 10/18/2021 by Kvein Hogue MD at [facility] Left: Knee [employer] 06/01/2025 / [id number]-A-[id number] / [id number] Simplex P Bone Cement Full Dose Implanted:Qty: 2 on 10/18/2021 by Kevin Hogue MD at [facility] Left: Knee [employer] 09/12/2023 / [id number] / [id number] Triathlon Fluted Stem - Tibia Implanted:Qty: 1 on 10/18/2021 by Kevin Hogue MD at [facility] Left: Knee [employer] 10/09/2025 / [id number] / [id number] Triathlon Tritanium Tibial Symmetric Cone Augment Implanted:Qty: 1 on 10/18/2021 by Kevin Hogue MD at [facility] Left: Knee [employer] 05/04/2026 / [id number] / [id number] Triathlon Total Knee [place] Tibial Baseplate Implanted:Qty: 1 on 10/18/2021 by Kevin Hogue MD at [facility] Left: Knee [employer] 12/19/2025 / [id number] / [id number] Triathlon Fluted Stem - Femur Implanted:Qty: 1 on 10/18/2021 by Kevin Hogue MD at [facility] Left: Knee [employer] 06/15/2025 / [id number] / [id number] Triathlon Total Stabilizer Femoral Component Implanted:Qty: 1 on 10/18/2021 by Kevin Hogue MD at [facility] Left: Knee [employer] 01/16/2026 / [id number] / [id number] Triathlon X3 Total Stablizer+ Tibial Insert Implanted:Qty: 1 on 10/18/2021 by Kevin Hogue MD at [facility] Left: Knee [employer] 08/31/2026 / [id number] -[id number] / [id number] Triathlon Femoral Posterior Augment Implanted:Qty: 1 on 10/18/2021 by Kevin Hogue MD at [facility] Left: Knee [employer] 09/05/2025 / [id number]-A-[id number] / [id number] Procedures Procedure Name Priority Date/Time Associated Diagnosis Comments ECHO RAMEZ WO CONTRAST W COLOR W LTD DOPPLER Routine 03/25/2024 1:02 PM CDT EKG 12 LEAD Post Op 03/25/2024 12:59 PM CDT TSH CLARISA 03/25/2024 11:10 AM CDT AST (SGOT) CLARISA 03/25/2024 11:10 AM CDT ALT (SGPT) CLARISA 03/25/2024 11:10 AM CDT CREATININE CLARISA 03/25/2024 11:10 AM CDT PROTIME-INR CLARISA 03/25/2024 11:10 AM CDT POTASSIUM CLARISA 03/25/2024 11:10 AM CDT EKG 12 LEAD Preop 03/25/2024 10:52 AM CDT SCAN-CARDIAC STRIP 03/25/2024 12 :00 AM CDT ECHO TTE LIMITED W CONTRAST Routine 02/26/2024 [...] 12 LEAD Preop 01/24/2024 10:11 AM CDT from Last 3 Months Results * ECHO RAMEZ WO CONTRAST W COLOR W LTD DOPPLER (03/25/2024 1:02 PM CDT) Only the most recent of3 resultswithin the time period is included. Anatomical Region Laterality Modality Ultrasound 03/25/2024 11:2 3 AM CDT Narrative 03/25/2024 1:11 PM CDT TRANSESOPHAGEAL ECHOCARDIOGRAM ABIMBOLA SAMUELS ? Accession#: ?? [id number] : ?1940 84 years Study Date: ?? 03/25/2024 11:23:16 AM Gender: F ?BP: ? 152/81 mmHg Height: 163.00 cm ?BSA: ?1.69 m? ? ? Weight: 64.00 kg ? Tech: ? MBL ? Referring MD: MORIAH ZAPATA Site: ? [facility] Reading Location: [facility] OP Patient Location: Outpatient. Procedure: RAMEZ, Color Doppler and Limited Spectral Doppler. Indication for study: DCCV Cardiac Rhythm: Atrial fibrillation.Study quality: Fair. Final Impressions: 1. Normal left ventricular size, mildly decreased global systolic function. 2. Global systolic RV function is mildly reduced. 3. Severely enlarged left atrium. 4. The mitral valve is degenerative with significant mitral annular calcification, mild mitral regurgitation, mild setnosis as best determined by mean gradient (5 mmHg at HR 110 BPM). 5. Significant left atrial appendage smoke but no clear thrombus seen. Decreased left atrial appendage flow velocities. Procedure comments: Indications, goals, risks and alternatives [...] and Function Normal left ventricular size, mildly decreased global systolic function. Left atrial size is severely enlarged. No clear thrombus is appreciated. The left atrial appendage is well visualized and there is evidence of significant smoke. Decreased left atrial appendage flow velocities. Right ventricular cavity size is not well visualized, global systolic RV function is mildly reduced. The right atrium is not well visualized. The pulmonary artery is not well visualized. The sinus of Valsalva is not well visualized. The ascending aorta is not well visualized. Aortic arch is not well visualized. Descending aorta is not well visualized. Valves, RV Pressures and Diastolic Function The aortic valve is not well visualized , not evaluated for stenosis and regurgitation not well visualized regurgitation. The mitral valve is degenerative, mild mitral regurgitation. Severe mitral annular calcification is present. The tricuspid valve is normal in structure. Tricuspid regurgitation is mild regurgitation. The pulmonic valve is not well visualized. Unable to determine pulmonary regurgitation. Masses, Effusion, Shunts There is no pericardial effusion. Atrial septum is intact. Agitated saline injection not done. MEASUREMENTS AND CALCULATIONS 2-D Measurements and LV Function: HR 110 bpm . This study was interpreted by an [facility] accredited facility. ??Final ?? Procedure Note Robert Dumont MD - 03/25/2024 TRANSESOPHAGEAL ECHOCARDIOGRAM ABIMBOLA SAMUELS : 1940 84 years Study Date: 03/25/2024 11:23:16 AM Gender: F BP: 152/81 mmHg Height: 163.00 cm BSA: 1.69 m? ? ? Weight: 64.00 kg Tech: [facility] Referring MD: MORIAH ZAPATA Site: [facility] Reading Location: [facility] OP Patient Location: Outpatient. Procedure: RAMEZ, Color Doppler and Limited Spectral Doppler. Indication for study: DCCV Cardiac Rhythm: Atrial fibrillation.Study quality: Fair. Final Impressions: 1. Normal left ventricular size, mildly decreased global systolicfunction. 2. Global systolic RV function is mildly reduced. 3. Severely enlarged left atrium. 4. The mitral valve is degenerative with significant mitral annularcalcification, mild mitral regurgitation, mild setnosis as best determinedby mean gradient (5 mmHg at HR 110 BPM). 5. Significant left atrial appendage smoke but no clear thrombus seen.Decreased left atrial appendage flow velocities. Procedure comments: Indications, goals, risks and alternatives of theprocedure were discussed with the patient and informed consent wasobtained. The patient received sedation of intravenous Propofol andgeneral anesthesia. See procedural record for anesthesia details. Prior toperformance of procedure, time out was called to accurately identify thepatient and procedure. The Foxtrot probe was passed without difficulty.RAMEZ, Color Doppler and Limited Spectral Doppler was performed. The patientdeveloped no apparent complications during the procedure. Estimated Blood Loss: 0 ml Chamber Sizes and Function Normal left ventricular size, mildly decreased global systolic function.Left atrial size is severely enlarged. No clear thrombus is appreciated.The left atrial appendage is well visualized and there is evidence ofsignificant smoke. Decreased left atrial appendage flow velocities. Rightventricular cavity size is not well visualized, global systolic RVfunction is mildly reduced. The right atrium is not well visualized. Thepulmonary artery is not well visualized. The sinus of Valsalva is not wellvisualized. The ascending aorta is not well visualized. Aortic arch is notwell visualized. Descending aorta is not well visualized. Valves, RV Pressures and Diastolic Function The aortic valve is not well visualized , not evaluated for stenosis andregurgitation not well visualized regurgitation. The mitral valve isdegenerative, mild mitral regurgitation. Severe mitral annularcalcification is present. The tricuspid valve is normal in structure.Tricuspid regurgitation is mild regurgitation. The pulmonic valve is notwell visualized. Unable to determine pulmonary regurgitation. Masses, Effusion, Shunts There is no pericardial effusion. Atrial septum is intact. Agitated salineinjection not done. MEASUREMENTS AND CALCULATIONS 2-D Measurements and LV Function: HR 110 bpm . This study was interpreted by an [facility] accredited facility. Final Moriah SHORT ECHO ORD * EKG (03/25/2024 12:59 PM CDT) Only the most recent of4 resultswithin the time period is included. Interpretation Sinus rhythm with marked sinus arrhythmia Right bundle branch block T wave abnormality, consider inferior ischemia Abnormal ECG When compared with ECG of 25-Mar-2024 10:52, Sinus rhythm has replaced Atrial fibrillation BEYOND NOW Ventricular Rate 86 BPM BEYOND NOW Atrial Rate 86 BPM BEYOND NOW P-R Interval 192 ms BEYOND NOW QRS Duration 136 ms BEYOND NOW QT 382 ms BEYOND NOW QTc 457 ms BEYOND NOW P [place] 55 degrees BEYOND NOW R [place] 42 degrees BEYOND NOW T [place] -34 degrees BEYOND NOW 03/25/2024 12:5 9 PM CDT 03/25/2024 3:42 PM CDT Narrative BEYOND NOW - 03/25/2024 3:42 PM CDT Test Indication: POST CARDIO Alma Burton NP EKG ORD BEYOND NOW [place], [place] * TSH (03/25/2024 11:10 AM CDT) Only the most recent of2 resultswithin the time period is included. TSH 0.35 0.27 - 4.20 uIU/mL 03/25/2024 2:07 PM CDT [facility] Blood BLOOD SPECIMEN / Unknown Venipuncture / Unknown 03/25/2024 11:10 AM CDT 03/25/2024 11:21 AM CDT Narrative [facility] - 03/25/2024 2:07 PM CDT In Adults, TSH values between 5.00 and 10.00 uIU/ml do not necessarily indicate the presence of Hypothyroidism. Correlation with clinical findings such as presence of goiter and/or Thyroperoxidase (TPO) Antibody may be helpful. For more information please refer to SHABANA 2004; 291: 228-238. Alma Burton NP CHEMISTRY Performing Organization Address City/[facility] Co de Phone Number [facility] [address] [place] [phone], * Potassium (03/25/2024 11:10 AM CDT) Only the most recent of3 resultswithin the time period is included. POTASSIUM 3.9 3.5 - 5.1 mmol/L 03/25/2024 12:34 PM CDT [facility] Blood BLOOD SPECIMEN / Unknown Venipuncture / Unknown 03/25/2024 11:10 AM CDT 03/25/2024 11:21 AM CDT Alma Burton NP CHEMISTRY Performing Organization Address [facility] Phone Number [facility] [address] [place] [address], * (ABNORMAL) CREATININE (03/25/2024 11:10 AM CDT) Only the most recent of4 resultswithin the time period is included. eGFR 37(L) >90 mL/min/1.7 3m2 03/25/2024 12:34 PM CDT [facility] Comment:As of 2021, eG FR is calculated by the CKD-EPI creatinine equation without race adjustment. ??eGFR can be influenced by muscle mass, exercise, and diet. ??The reported eGFR is an estimation only and is only applicable if the renal function is stable. CREATININE 1.39(H) 0.50 - 0.90 mg/dL 03/25/2024 12:34 PM CDT [facility] Blood BLOOD SPECIMEN / Unknown Venipuncture / Unknown 03/25/2024 11:10 AM CDT 03/25/2024 11:21 AM CDT Alma Burton NP CHEMISTRY Performing Organization Address [facility] Co de Phone Number [facility] [address] [address], * (ABNORMAL) Protime - INR (03/25/2024 11:10 AM CDT) Only the most recent of7 resultswithin the time period is included. INR 3.7(H) <1.3 03/25/2024 11:30 AM CDT [facility] PROTIME 39.6(H) 10.3 - 12.3 sec 03/25/2024 11:30 AM CDT [facility] Blood BLOOD SPECIMEN / Unknown Venipuncture / Unknown 03/25/2024 11:10 AM CDT 03/25/2024 11:21 AM CDT Narrative [facility] - 03/25/2024 11:30 AM CDT ?Therapeutic Range 2.0-3.0 for most [...] seconds if the patient is on UFH. Alma Burton NP HEMATOLOGY Performing Organization Address [facility] Co de Phone Number [facility] [address] [address], [place] * ALT (SGPT) (03/25/2024 11:10 AM CDT) ALT (SGPT) 21 10 - 35 IU/L 03/25/2024 2:08 PM CDT [facility] Blood BLOOD SPECIMEN / Unknown Venipuncture / Unknown 03/25/2024 11:10 AM CDT 03/25/2024 11:21 AM CDT Alma Burton NP CHEMISTRY Performing Organization Address City/[facility]/ZIP Co de Phone Number [facility] [address] [place] [address], * AST (SGOT) (03/25/2024 11:10 AM CDT) AST (SGOT) 32 10 - 35 IU/L 03/25/2024 2:07 PM CDT [facility] Blood BLOOD SPECIMEN / Unknown Venipuncture / Unknown 03/25/2024 11:10 AM CDT 03/25/2024 11:21 AM CDT Alma Burton NP CHEMISTRY [facility] [address] [place] [address], * SCAN-CARDIAC STRIP (03/25/2024 12:00 AM CDT) Narrative 03/25/2024 12:00 AM CDT Ordered by an unspecified provider. Other Clinical Staff OTHER * ECHO TTE LIMITED W CONTRAST (02/26/2024 [...] CDT ECHOCARDIOGRAM ABIMBOLA SAMUELS ? Accession#: ?? [id number] : ?1940 83 years Study Date: ?? 02/26/2024 1:57:08 PM Gender: F ?BP: ? 89/52 mmHg Height: 163.00 cm ?BSA: ?1.76 m? ? ? Weight: 70.00 kg ? Tech: ? MRC ? Referring MD: JAROCHO MCCORMICK Site: ? [facility] Reading Location: [facility] Patient Location: Inpatient. Procedure: Color Doppler, [...] . This study was interpreted by an [facility] accredited facility. CC: HIM (med records) [facility], Med/Surg - IP [facility]. ??Final ?? Procedure Note Criselda Escobar MD - 02/26/2024 ECHOCARDIOGRAM ABIMBOLA SAMUELS : 1940 83 years Study Date: 02/26/2024 1:57:08 PM Gender: F BP: 89/52 mmHg Height: 163.00 cm BSA: 1.76 m? ? ? Weight: 70.00 kg Tech: [facility] Referring MD: JAROCHO MCCORMICK Site: [facility] Reading Location: [facility] Patient Location: Inpatient. Procedure: Color Doppler, [...] [facility] accredited facility. CC: HIM (med records) [facility], Med/Surg - IP [facility]. Final Jarocho Mccormick MD ECHO ORD * POTASSIUM,ISTAT (02/18/2024 1:26 PM CDT) Only the most recent of2 resultswithin the time period is included. POTASSIUM, POCT 4.9 3.5 - 5.0 mmol/L 02/18/2024 1:48 PM CDT [facility] Blood BLOOD SPECIMEN / Unknown 02/18/2024 1:26 PM CDT 02/18/2024 1:48 PM CDT Mike SHORT CHEMISTRY Performing Organization Address [facility] Co de Phone Number [facility] [address] [place] [address], * SCAN-CARDIAC STRIP (01/28/2024 9:22 AM CDT) Scanner OTHER * (ABNORMAL) PLATELET COUNT (01/28/2024 5:39 AM CDT) PLATELET COUNT 151 140 - 440 thou/cu mm 01/28/2024 6:47 AM CDT [facility] MPV 13.3(H) 6.5 - 11.0 fL 01/28/2024 6:47 AM CDT [facility] Blood BLOOD SPECIMEN / Unknown Venipuncture / Unknown 01/28/2024 5:39 AM CDT 01/28/2024 6:38 AM CDT Joshua Boykin NP HEMATOLOGY Performing Organization Address [facility] Co de Phone Number [facility] [address] [place] [address], * MAGNESIUM (01/28/2024 5:39 AM CDT) Only the most recent of3 resultswithin the time period is included. MAGNESIUM 1.8 1.6 - 2.4 mg/dL 01/28/2024 10:02 AM CDT [facility] Blood BLOOD SPECIMEN / Unknown Venipuncture / Unknown 01/28/2024 5:39 AM CDT 01/28/2024 6:38 AM CDT Anais SHORT CHEMISTRY Performing Organization Address [facility] Co de Phone Number [facility] [address] [place] [address], * SCAN-CARDIAC STRIP (01/27/2024 9:10 PM CDT) [...] REFLEX MEASURED LDL (01/25/2024 5:56 AM CDT) Pathologist [facility] CHOLESTEROL,TOTAL 174 100 - 199 mg/dL 01/25/2024 11:36 AM CDT [facility] [employer] Comment: Cholesterol, Total Reference Ranges Desirable <200 mg/dL Borderline 200-239 mg/dL High >=240 mg/dL TRIGLYCERIDES 114 <150 mg/dL 01/25/2024 11:36 AM CDT [facility] [employer] [facility] HDL CHOLESTEROL 58 >40 mg/dL 11:36 AM CDT [facility] NON-HDL CHOLESTEROL 116 <145 mg/dl 01/25/2024 11:36 AM CDT [facility] CHOL/HDL RATIO 3.00 <4.50 01/25/2024 11:36 AM CDT [facility] LDL CHOLESTEROL 93 <=130 mg/dL 01/25/2024 11:36 AM CDT [facility] VLDL CHOLESTEROL 23 <=30 mg/dL 01/25/2024 11:36 AM CDT [facility] PROVIDER ORDERED STATUS RANDOM 01/25/2024 11:36 AM CDT [facility] Blood BLOOD SPECIMEN / Unknown Venipuncture / Unknown 01/25/2024 5:56 AM CDT 01/25/2024 6:13 AM CDT Akos[facility] Blanco DISK GRINDER CHEMISTRY [facility] [address] [place] [address], * (ABNORMAL) BASIC METABOLIC PANEL (01/25/2024 5:56 AM CDT) Only the most recent of2 resultswithin the time period is included. SODIUM 144 136 - 145 mmol/L 01/25/2024 6:38 AM CDT [facility] POTASSIUM 4.2 3.5 - 5.1 mmol/L 01/25/2024 6:38 AM T [facility] CHLORIDE 105 98 - 107 mmol/L 01/25/2024 6:38 AM T [facility] CO2,TOTAL 26 22 - 29 mmol/L 01/25/2024 6:38 AM [facility] ANION GAP 13 5 - 18 01/25/2024 6:38 AM T [facility] GLUCOSE 84 70 - 99 mg/dL 01/25/2024 6:38 AM T [facility] CALCIUM 9.7 8.8 - 10.2 mg/dL 01/25/2024 6:38 AM T [facility] BUN 37(H) 8 - 23 mg/dL 01/25/2024 6:38 AM [facility] CREATININE 1.40(H) 0.50 - 0.90 mg/dL 01/25/2024 6:38 AM [facility] BUN/CREAT RATIO 26(H) 10 - 20 6:38 AM T [facility] eGFR 37(L) >90 mL/min/1.7 3m2 01/25/2024 6:38 AM [facility] Comment:As of 2021, [...] 01/25/2024 6:13 AM CDT Anais SHORT CHEMISTRY [facility] [address] [place] [address], * SCAN-CARDIAC STRIP (01/24/2024 8:08 PM CDT) Scanner OTHER * SCAN-CARDIAC STRIP (01/24/2024 6:16 PM CDT) Scanner OTHER from Last 3 Months Advance Directives Documents on File Type Date Recorded Patient Cullet Crusher Expl anation Healthcare Directive 10/20/2021 8:51 AM * Full Code (Latest Code Status on File) Date Activated Date Inactivated Comments 03/25/2024 12:58 PM 03/25/2024 4:53 PM Question Answer Comments Code Status Discussion: Other * Full Code Date Activated Date Inactivated Comments 02/18/2024 3:28 [...] Preferences, Provider to review later Care Teams Sewer Maintenance Supervisor Relationship Specialty Start Date End Date Tamera Newton MD [address] [place] [address] PCP - General Family Practice 10/24/23
== END 2024-04-10 10:16 | disposition home or self-care (01) ==
LOC: NFLDREF 12:55
PROVIDERS: PCP Family Medicine; Referring Provider Family Medicine; Visit Provider Family Medicine
DX: I48.20 Chronic atrial fibrillation, unspecified (principal); Z79.01 Long term (current) use of anticoagulants
CPT/HCPCS: 85610

== ENCOUNTER 2024-05-29 10:23 | Outpatient (CLI) | payer MEDICARE, OTHER, SELFPAY ==
--- OUTSIDE RECORDS SUMMARY | 2024-06-03 15:29 | XMS_ITS | Encounter Summary ---
Author Organization [employer] Address [address] [address] Care Team Providers Care Commercial Engineer Name Role Phone Clinician, Not Found MD Primary Care Provider Un available Reason for Visit * Reason Comments FYI Encounter Details Date Type Department Care Team (Late st Contact Info) Description 02/29/2024 Telephone Rheumatology at [address] [place], [place] [id number] Denise Davila MD [address] [place] [phone] FYI Social History Tobacco Use Types Packs/Day Years Used Date Smoking Tobacco: Never Smokeless Tobacco: Never Alcohol Use Standard Drinks/Week Comments Yes 0 (1 standard drink = 0.6 oz pur e alcohol) Sex and Gender Information Value Date Recorded Sex Assigned at Not on file Gender Identity Not on file Sexual Orientation Straight 04/25/2024 8: 18 AM CDT documented as of this encounter Nursing Notes * Sharita Henao - 02/29/2024 9:57 AM CDT Patient calling to report that she was discharged from [facility] yesterday and patient was unsure [...] Care Team (Late st Contact Info) Description 06/24/2024 12:00 PM DATA COLLECTOR Appointment [facility] [address] [place] [address] [place] [address] [place] [address] 08/19/2024 10:30 AM DATA COLLECTOR Appointment Rheumatology at [facility] [place] [address] [address] [address] [place] [address] Denise Davila MD [address] [place] [address] documented as of this encounter Visit Diagnoses Not on filedocumented in this encounter Care Teams Commercial Engineer Relationship Specialty Start Date End Date Clinician, Not Found, [place] [address] PCP - General 03/01/18 documented as of this encounter
--- OUTSIDE RECORDS SUMMARY | 2024-06-03 15:29 | XMS_ITS | Encounter Summary ---
Author Organization [facility] Address [address], [place] [address] Care Team Providers Care Associate Artistic Director Name Role Phone Clinician, Not Found MD Primary Care Provider Un available Encounter Details Date Type Department Care Team (Late st Contact Info) Description 04/28/2024 Notes/Orders PN Anticoagulation Centralized Services [facility], [address] [place] [address] No Pcp, No Pcp, [place] [address] Social History Tobacco Use Types Packs/Day Years Used Date Smoking Tobacco: Never Smokeless Tobacco: Never Alcohol Use Standard Drinks/Week Comments Yes 0 (1 standard drink = 0.6 oz pur e alcohol) Sex and Gender Information Value Date Recorded Sex Assigned at Not on file Gender Identity Not on file Sexual Orientation Straight 04/25/2024 8: 18 AM CDT documented as of this encounter Progress Notes * Ivelisse Chu - 04/28/2024 11:48 AM CDT Chart reviewed. Patient remains on the anticoagulant, but care is managed by an outside clinician/health system: [facility] Change the anticoagulant to historical [facility] 04/28/2024 11:51 AM documented in this encounter Plan of Treatment Upcoming Encounters Date Type Department Care Team (Late st Contact Info) Description 06/24/2024 12:00 PM AERONAUTICAL RESEARCH ENGINEER Appointment [facility] [address] [place] [address] Denise Davila MD [address] [place] [address] 08/19/2024 10:30 AM AERONAUTICAL RESEARCH ENGINEER Appointment Rheumatology at [facility] [place] [address] [facility] [address] [place] [address] Denise Davila MD [address] [place] [address] documented as of this encounter Visit Diagnoses Not on filedocumented in this encounter Care Teams Associate Artistic Director Relationship Specialty Start Date End Date Clinician, Not Found, [place] [address] PCP - General 03/01/18 documented as of this encounter
--- OUTSIDE RECORDS SUMMARY | 2024-06-03 15:29 | XMS_ITS | Clinical Summary ---
Author Organization [facility] Address [address] [address] Care Team Providers Care Nike Athlete Name Role Phone Clinician, Not Found MD Primary Care Provider Un available Source Comments You are receiving this document as you are listed as the primary care provider,follow-up provider, or the patient has been referred to you for consultation.This is in compliance with the Medicare and[facility] Cent[facility] EHR Incentive Program,which states Providers who transition their patient to another setting of careor provider of care or refers their patient to another provider of care shouldprovide summary care record for each transition of care or referral. [facility] Allergies Active Allergy Reactions Criticality Noted Date Comments Propoxyphene Other, see comments Medium 10/21/1999 Lethargy Sulindac Hives High 06/03/2003 Medications Medication Sig Dispensed Refills Start Date End Date Status omeprazole (PRILOSEC) 20 MG capsule Take 1 Capsule (20 mg) by mouth. 01/19/2015 Active atenolol (TENORMIN) 25 MG tablet Take 1 Tablet (25 mg) by mouth. 01/19/2015 Active levothyroxine (SYNTHROID) 75 MCG tablet Take 1 Tablet (75 mcg) by mouth daily. 12/10/2021 Active furosemide (LASIX) 20 MG tablet Take 1 Tablet (20 mg) by mouth as needed. 07/28/2021 Active calcium carbonate-vitamin D 600-10 MG-MCG tablet 1 tab twice a day with meals. 12/18/2023 Active allopurinol (ZYLOPRIM) 100 MG tablet Take 200 mg/d (2 tabs) all in am. 180 Tablet 3 04/25/2024 Active predniSONE (DELTASONE) 5 MG tablet Use with 1-mg, all in am: 9 mg/d x 2 wk, 8 mg/d x 2 wk, 7 mg/d x 2 wk, 6 mg/d x 2 wk then stay at 5 mg/d. (New instruction as of 04/25/2024) 90 Tablet 1 04/25/2024 Active Metoprolol Succinate 25 MG CS24 Active amiodarone (PACERONE) 200 MG tablet Take 2 Tablets (400 mg) by mouth daily. Active spironolactone (ALDACTONE) 25 MG tablet Take 0.5 Tablets (12.5 mg) by mouth daily. Active atorvastatin (LIPITOR) 40 MG tablet Take 1 Tablet (40 mg) by mouth daily. Active predniSONE (DELTASONE) 1 MG tablet Use with 5-mg, all in am: 9 mg/d x 2 wk, 8 mg/d x 2 wk, 7 mg/d x 2 wk, 6 mg/d x 2 wk then stay at 5 mg/d. (New instruction as of 04/25/2024) 300 Tablet 1 04/25/2024 Active cephalexin (KEFLEX) 500 MG capsule Take 1 Capsule (500 mg) by mouth three times a day. 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 Renal insufficiency 10/01/2020 Hyperuricemia 09/10/2020 S/P total knee arthroplasty, bilateral 8 S/P appendectomy 03/29/2018 Restless legs syndrome (RLS) 03/29/2018 Chronic left shoulder pain 03/29/2018 Psoriatic arthritis 03/29/2018 Sensorineural hearing loss 02/22/2005 Overview (04/04/2017): LW Onset: 02Bbd86 ; Hearing Loss Sensorineural Undiagnosed cardiac murmurs 02/22/2005 Overview (04/04/2017): LW Modifier: functional LW Onset: 77Ypm42 ; Heart Murmur Right bundle branch block 02/22/2005 Overview (03/16/2016): LW Onset: 27Jks59 Obesity 05/04/2004 Overview (03/16/2016): LW Onset: 44Bxr84 Essential hypertension 01/17/2003 Overview (04/04/2017): Hypertension Hypothyroidism 01/17/2003 Overview (04/04/2017): Hypothyroidism Acquired Osteoarthritis 01/17/2003 Overview (04/04/2017): DJD Chronic kidney disease, stage 3b Encounters Date Type Department Care Team Description 04/28/2024 Notes/Orders PN Anticoagulation Centralized Services [address] [place] [address], [address] [place] [address] No Pcp, No MD Kartik 04/25/2024 12:00 PM CDT Office Visit Rheumatology at [facility] [place] [address] [address] [address] [place] [address] Denise Davila MD PMR (polymyalgia rheumatica) (HRC) (Primary Dx); Chronic tophaceous gout; Osteoarthritis of multiple joints, unspecified osteoarthritis type; [facility] 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; Persistent atrial fibrillation (HRC); Cellulitis of foot 03/27/2024 Telephone Rheumatology at [place] [address] [place] [address] Denise Davila MD Medication Questions from Last 3 Months Immunizations Name Administration Dates Next Due Flu Vac Preserv Free (3+yrs) 04/21/2013, 04/28/2009,05/21/2006,2004,05/04/2004 Influenza IIV3 (Trivalent) F ramiro Conklinse, 65+ Yrs ([address]) 06/15/2020,07/01/2019,05/27/2018,2017,05/30/2017,05/15/2016,04/28/2014 Influenza IIV4 (Quadrivalent ) Fluad, 65+ [...] Orientation Straight 04/25/2024 8: 18 AM CDT Last Filed Vital Signs Vital Sign Reading [...] st Contact Info) Description 06/24/2024 12:00 PM PUBLIC IMPROVEMENT INSPECTOR Appointment [place] [facility] [address] [place] [address] Denise Davila MD [address] [place] [address] 08/19/2024 10:30 AM PUBLIC IMPROVEMENT INSPECTOR Appointment Rheumatology at [facility] [address] [address] Denise Davila MD [address] [place] [address] Health Maintenance Due Date Last Done Comments Medicare Annual Wellness Visit 1940 Dexa 02/27/2005 RSV (1 - 1-dose 75+ series) 02/27/2015 COVID-19 Vaccine ( season) 2024 06/03/2022, 07/08/2021, 10/11/2020, Additional history exists Influenza [...] on patient's age to complete this topic Infant RSV Aged Out No longer eligi ble based on patient's age to complete this topic MCV4 Aged Out No longer eligi ble based on patient's age to complete this topic Care Teams Nike Athlete Relationship Specialty Start Date End Date Clinician, Not Found, [place] [address] PCP - General 03/01/18
--- OUTSIDE RECORDS SUMMARY | 2024-06-03 15:29 | XMS_ITS | Encounter Summary ---
Author Organization [employer] Address [address], [place] [address] Care Team Providers Care Hris Developer Name Role Phone Clinician, Not Found MD Primary Care Provider Un available Reason for Visit * Reason Comments Medication Questions Encounter Details Date Type Department Care Team (Late st Contact Info) Description 03/27/2024 Telephone Rheumatology at [address] [place], [place] [phone] Denise Davila MD [address] [place] [phone] Medication Questions Social History Tobacco Use Types [...] and does not need a refill. * PaiDenise gan MD - 03/27/2024 10:47 AM CDT She should take 10 mg/d, NOT 2 mg/d. Let me know if she needs 5-mg prednisone tab. * Rosette Matthews RN - 03/27/2024 10:17 AM CDT Pt calling to report that she was seen in [facility] on 03/25/24 for RAMEZ and cardioversion. Pt states after this visit, she was discharged with a change in her prednisone order. Pt states they the physician at [facility] ordered for her to take 2 mg [...] st Contact Info) Description 06/24/2024 12:00 PM SUPERVISOR COMPUTER OPERATIONS Appointment [place] [facility] [address] [place] [address] Denise Davila MD [address] [place], [place] [address] 08/19/2024 10:30 AM SUPERVISOR COMPUTER OPERATIONS Appointment Rheumatology at [facility] [place] [address] [address] [address] [place] [address] Denise Davila MD [address] [place] [address] documented as of this encounter Visit Diagnoses Not on filedocumented in this encounter Care Teams Hris Developer Relationship Specialty Start Date End Date Clinician, Not Found, [place] [address] PCP - General 03/01/18 documented as of this encounter
--- OUTSIDE RECORDS SUMMARY | 2024-06-03 15:29 | XMS_ITS | Continuity of Care Document ---
Author Organization [facility] Address [address] [place] [address] Phone Care Team Providers Care Research Specialist Name Role Phone Unavailable Unavailable Unavailable [...] Copied on Encounter [facility], [address], [place], [id number] , [place] tel:[phone] [facility] No Information May-2 No Information Office/Outpat ient Visit,Est, Mod [facility], [address], [place], [id number] , [place] tel:[phone] [facility] Other idiopathic scoliosis, lumbar region Rafa Miller. [facility], [address], [facility] [address], [place], [place], [id number], [place]. tel:[phone] Referring Provider: Terry Grant, [facility] [address] [place], [address]. tel:[phone] Office/Outpat ient Visit,New, Mod [facility], [address], [place], [place], [id number] , [place] tel:[phone] [facility] Spinal stenosis, lumbar region with neurogenic claudication Spondylolysi s, lumbar regionOther idiopathic scoliosis, lumbar region 1 No Information Referring Provider: Terry Grant, [facility] [address] [place], [address]. tel:[phone] Family History Family Member Type Diagnosis Age At Onset No Information Payers Payer name Insurance type Covered libertarian ID Authorzaydaa brigette(s) Medicare [id number] For Life/Retired Hunter [id number] Social History Type Description Quantity Date Captured [...]
--- OUTSIDE RECORDS SUMMARY | 2024-06-03 15:29 | XMS_ITS | Encounter Summary ---
Author Organization [employer] Address [address] [place] [address] Care Team Providers Care Quill Cleaner Name Role Phone Clinician, Not Found MD Primary Care Provider Un available Reason for Visit * Reason Comments Follow-up Encounter Details Date Type Department Care Team (Late Contact Info) Description 04/25/2024 12:00 PM CDT Office Visit Rheumatology at [facility] [address] [phone] Denise Davila MD [address] [place], [place] [phone] PMR (polymyalgia rheumatica) (HRC) (Primary Dx); Chronic tophaceous gout; Osteoarthritis of multiple joints, unspecified osteoarthritis type; long-term 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; Persistent atrial fibrillation (HRC); Cellulitis of foot Social History Tobacco Use Types Packs/Day Years Used Date Smoking Tobacco: Never Smokeless Tobacco: Never Alcohol Use Standard Drinks/Week Comments Yes 0 (1 standard drink = 0.6 oz pur e alcohol) Sex and Gender Information Value Date Recorded Sex Assigned at Not on file Gender Identity Not on file Sexual Orientation Straight 04/25/2024 8: 18 AM CDT documented as of this encounter Patient Instructions * Patient Instructions* Denise Davila MD - 04/25/2024 12:00 PM CDT Get updated influenza (by late May,) and new COVID (now) vaccines in fall at local pharmacy when available by May,. Follow-up on your foot with Dr. [place] in a week or so. Notify chairman and chief executive officer at [facility] to let him/her know that you are taking cephalexin and this might increase INR. documented in this encounter Progress Notes * Denise Davila MD - 04/25/2024 12:00 PM CDT SUBJECTIVE: Follow-up for clinical polymyalgia rheumatica, background history of 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 History of present illness: This is the 3-month follow-up for the patient. Her PMR onset started a few months ago. She responds very well to low-dose prednisone. This has been reduced to the current dose of 10 mg a day. She is feeling well currently. She reported no significant girdle stiffness in the morning to suggest clinical disease activity of PMR. She does have intermittent leg pain during the day while doing the activities. Since I last saw her, she has been quite busy dealing with her atrial fibrillation. She has felt cardioversion. She also was found to have intracardiac clot. The direct anticoagulant then has been replaced with warfarin and she expected to be on warfarin chronically. She is having an INR followed wi th her chairman and chief executive officer through [facility]'s system. She has been put on amiodarone as well. She is expected to have an ablation and subsequently a pacemaker placement in the near future. She is also now on diuretic with furosemide and spironolactone to help manage her congestive heart failure, which is thought to be from atrial fibrillation. She also informed me that she had an area which looked red with a small superficial wound on the right dorsal foot in the space between first and second MTP joint. She has been afebrile. She did not recall of having had an obvious injury or trauma. It is relatively not significantly tender but she also has neuropathy. Her gout has been under good control and she has never had a gout attack. The tophi over her fingers have subsided and dissolved for quite sometimes. She has good compliance with taking allopurinol 200 mg a day. She would like to postpone influenza vaccine until late May so that it will last throughout thewintertime. She has planned to have a messenger RNA COVID vaccine at the local pharmacy. She is updated with pneumococcal vaccines. Past medical history, family and social history, current medications and adverse reactions were updated in EMR. Physical exams: Vital signs per flow sheet in [facility]. General appearance: An elderly female who was not in acute physical distress. Skin: There is a superficial abrasive wound with no exudative membrane or loculation overlying the area between right second and third MTP joint but proximal to the joint lines. No obvious abscess felt. Compression of this area is not associated with significant tenderness or exudate coming out of the wound. Musculoskeletal exams: All 4 extremities were examined. Osteoarthritic changes finger knuckle joints, first MTP and toe IP joints. No significant synovitis/inflammatory arthritis in any joints. No limited range of motion of both shoulders. Assessment and plan: 1. Polymyalgia rheumatica, clinically doing well. 2. Background history of tophaceous gout, therapeutic serum uric acid (3.6 on on 04/24/2023). 3. Chronic low-dose prednisone. 4. Suspected early cellulitis of the soft tissue overlying the space between right first and secondMTP joint proximal to the joint line. 5. Chronic atrial fibrillation on amiodarone and warfarin. She is clinically doing well for her PMR. She does not have significant girdle stiffness in the morning suggesting that this disease activities under good control. I will continue to taper her prednisone by 1 mg every 2 weeks until she is at 5 mg and she will stay at that dose. She will continue calcium and vitamin-D supplements. She has been scheduled to have a DEXA scan in June, and I will keep an eye on these results and will help her determine if she needs to have additional treatment to prevent glucocorticoid induced osteoporosis/fracture. She does have appearance of the skin overlying her right dorsal foot suggestive of early cellulitiswithout obvious abscess or loculation. I will empirically treat her with cephalexin 500 mg 3 times a day for the next 10 days. Advised the patient to have a follow-up with her primary care doctor in 1 week to make sure that she response to the treatment and there is no abscess formation. I did contact her primary care provider and left a message on this issue. I also would recommend that she contact her chairman and chief executive officer to let him/her know that she is taking antibiotic which might interfere with warfarin and INR. She informed me that her INR will be repeated again in 7 days. Her gout is under good control on stable dose of allopurinol 200 mg a day with therapeutic serum uric acid level (less than 5 but not less than 3. She will continue allopurinol 200 mg a day. Reminded her to have updated messenger RNA COVID vaccine at local pharmacy which is now available. I ache this vaccine as the first priority since this is spreading in the community at the moment. I concur with her that it is okay for her to defer COVID vaccine until late May,. Follow up again in 3 months. documented in this encounter Plan of Treatment Upcoming Encounters Date Type Department Care Team (Late st Contact Info) Description 06/24/2024 12:00 PM ORACLE SCM CONSULTANT Appointment [place] [facility] [address] [place] [address] Denise Davila MD [address] [place] [address] 08/19/2024 10:30 AM ORACLE SCM CONSULTANT Appointment Rheumatology at [facility] [place] [address] [place] [address] [place] [address] Denise Davila MD [address] [place] [address] documented as of this encounter Visit Diagnoses Diagnosis PMR (polymyalgia rheumatica) (HRC)- Primary Polymyalgia rheumatica 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
== END 2024-05-29 10:24 | disposition home or self-care (01) ==
LOC: NFLDREF 06-03 15:22
PROVIDERS: PCP Family Medicine; Referring Provider Family Medicine; Visit Provider Family Medicine
DX: Z79.01 Long term (current) use of anticoagulants (principal)
CPT/HCPCS: 85610

== ENCOUNTER 2024-06-04 11:15 | Outpatient (CLI) | payer MEDICARE, OTHER, SELFPAY ==
--- OUTSIDE RECORDS SUMMARY | 2024-06-05 11:37 | XMS_ITS | Encounter Summary ---
Author Organization [facility] Address [address], [place] [address] Care Team Providers Care Leasing Representative Name Role Phone Clinician, Not Found MD Primary Care Provider Un available Encounter Details Date Type Department Care Team (Late st Contact Info) Description 04/28/2024 Notes/Orders PN Anticoagulation Centralized Services [facility] [employer] [facility], [address] [place] [address] No Pcp, No Pcp, [place] [address] Social History Tobacco Use Types Packs/Day Years [...] st Contact Info) Description 06/24/2024 12:00 PM INTELLIGENCE CHIEF Appointment [facility] [address] [place] [address] Denise Davila MD [address] [place] [address] 08/19/2024 10:30 AM INTELLIGENCE CHIEF Appointment Rheumatology at [facility] [place] [address] [facility] [address] [place] [address] Denise Davila MD [address] [place] [address] documented as of this encounter Visit Diagnoses Not on filedocumented in this encounter Care Teams Leasing Representative Relationship Specialty Start Date End Date Clinician, Not Found, [place] [address] PCP - General 03/01/18 documented as of this encounter
--- OUTSIDE RECORDS SUMMARY | 2024-06-05 11:37 | XMS_ITS | Encounter Summary ---
Author Organization [facility] Address [address] [place] [address] Care Team Providers Care Sap Bods Developer Name Role Phone Clinician, Not Found MD Primary Care Provider Un available Reason for Visit * Reason Comments Follow-up Encounter Details Date Type Department Care Team (Late Contact Info) Description 04/25/2024 12:00 PM CDT Office Visit Rheumatology at [facility] [address] [id number] Denise Davila MD [address] [place], [place] [phone] PMR (polymyalgia rheumatica) (HRC) (Primary Dx); Chronic [...] [place] in a week or so. Notify care professional at [facility] to let him/her know that you are [...] having an INR followed wi th her care professional through [facility]'s system. She has been put on amiodarone [...] exams: Vital signs per flow sheet in [facility]. General appearance: An elderly female who [...] also would recommend that she contact her care professional to let him/her know that she is [...] st Contact Info) Description 06/24/2024 12:00 PM COLLISION TECHNICIAN Appointment [facility] [address] [place] [address] Denise Davila MD [address] [place] [address] 08/19/2024 10:30 AM COLLISION TECHNICIAN Appointment Rheumatology at [facility] [place] [id number] [place] [address] [place] [address] Denise Davila MD [address] [place] [address] documented as of this encounter Visit Diagnoses Diagnosis PMR (polymyalgia rheumatica) (HRC)- Primary Polymyalgia rheumatica 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 [place] [address] PCP - General 03/01/18 documented as of this encounter
--- OUTSIDE RECORDS SUMMARY | 2024-06-05 11:37 | XMS_ITS | Clinical Summary ---
Author Organization [facility] Address [address], [place] [address] Care Team Providers Care Dry Plasterer Helper Name Role Phone Clinician, Not Found MD Primary Care Provider Un available Source Comments You are receiving this document as you are listed as the primary care provider,follow-up provider, or the patient has been referred to you for consultation.This is in compliance with the Medicare and[facility] Hospital[facility] EHR Incentive Program,which states Providers who transition their patient to another setting of careor provider of care or refers their patient to another provider of care shouldprovide summary care record for each transition of care or referral. 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 Renal insufficiency 10/01/2020 Hyperuricemia 09/10/2020 S/P total knee arthroplasty, bilateral 8 S/P appendectomy 03/29/2018 Restless legs syndrome (RLS) 03/29/2018 Chronic left shoulder pain 03/29/2018 Psoriatic arthritis 03/29/2018 Sensorineural hearing loss 02/22/2005 Overview (04/04/2017): LW Onset: [id number] ; Hearing Loss Sensorineural Undiagnosed cardiac murmurs 02/22/2005 Overview (04/04/2017): LW Modifier: functional LW Onset: [id number] ; Heart Murmur Right bundle branch block 02/22/2005 Overview (03/16/2016): LW Onset: [id number] Obesity 05/04/2004 Overview (03/16/2016): LW Onset: [id number] Essential hypertension 01/17/2003 Overview (04/04/2017): Hypertension Hypothyroidism 01/17/2003 Overview (04/04/2017): Hypothyroidism Acquired Osteoarthritis 01/17/2003 Overview (04/04/2017): DJD Chronic kidney disease, stage 3b Encounters Date Type Department Care Team Description 04/28/2024 Notes/Orders PN Anticoagulation Centralized Services [address] [place] [address], [address] [place] [address] No Pcp, No MD Kartik 04/25/2024 12:00 PM CDT Office Visit Rheumatology at [facility] [place] [address] [address] [address] [place] [address] Denise Davila MD PMR (polymyalgia rheumatica) (HRC) (Primary Dx); Chronic tophaceous gout; Osteoarthritis of multiple joints, unspecified osteoarthritis type; USP 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; Persistent atrial fibrillation (HRC); Cellulitis of foot 03/27/2024 Telephone Rheumatology at [place] [address] [place] [address] Denise Davila MD Medication Questions from Last 3 Months Immunizations Name Administration Dates Next Due Flu Vac Preserv Free (3+yrs) 04/21/2013, 04/28/2009,05/21/2006,2004,05/04/2004 Influenza IIV3 (Trivalent) F ramiro Conklinse, 65+ Yrs (90223) 06/15/2020,07/01/2019,05/27/2018,2017,05/30/2017,05/15/2016,04/28/2014 Influenza IIV4 (Quadrivalent ) Fluad, 65+ [...] st Contact Info) Description 06/24/2024 12:00 PM 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
--- OUTSIDE RECORDS SUMMARY | 2024-06-05 11:37 | XMS_ITS | Encounter Summary ---
Author Organization [employer] Address [address] [address] Care Team Providers Care Clinical Biostatistician Name Role Phone Clinician, Not Found MD Primary Care Provider Un available Reason for Visit * Reason Comments Medication Questions Encounter Details Date Type Department Care Team (Late st Contact Info) Description 03/27/2024 Telephone Rheumatology at [address] [place], [place] [phone] Denise Davila MD [address] [place] [phone] Medication Questions Social History Tobacco Use Types [...] to report that she was seen in [facility] on 03/25/24 for RAMEZ and cardioversion. Pt states after this visit, she was discharged with a change in her prednisone order. Pt states they the physician at [place] ordered for her to take 2 mg [...] st Contact Info) Description 06/24/2024 12:00 PM GERENTOLOGICAL PHYSIOTHERAPIST Appointment [facility] [address] [place] [address] Denise Davila MD [address] [place], [place] [address] 08/19/2024 10:30 AM GERENTOLOGICAL PHYSIOTHERAPIST Appointment Rheumatology at [facility] [place] [address] [address] [address] [place] [address] Denise Davila MD [address] [place] [address] documented as of this encounter Visit Diagnoses Not on filedocumented in this encounter Care Teams Clinical Biostatistician Relationship Specialty Start Date End Date Clinician, Not Found, [place] [address] PCP - General 03/01/18 documented as of this encounter
--- OUTSIDE RECORDS SUMMARY | 2024-06-05 11:37 | XMS_ITS | Encounter Summary ---
Author Organization [facility] Address [address], [place] [address] Care Team Providers Care Animal Control Licensing Worker Name Role Phone Clinician, Not Found MD Primary Care Provider Un available Reason for Visit * Reason Comments FYI Encounter Details Date Type Department Care Team (Late st Contact Info) Description 02/29/2024 Telephone Rheumatology at [address] [place], [place] [address] Denise Davila MD [address] [place] [phone] FYI Social History Tobacco Use Types Packs/Day [...] to report that she was discharged from [facility] yesterday and patient was unsure of [...] st Contact Info) Description 06/24/2024 12:00 PM OUTER DIAMETER TECHNICIAN Appointment [facility] [address] [place] [address] [place] [address] [place] [address] 08/19/2024 10:30 AM OUTER DIAMETER TECHNICIAN Appointment Rheumatology at [facility] [place] [address] [address] [address] [place] [address] Denise Davila MD [address] [place] [address] documented as of this encounter Visit Diagnoses Not on filedocumented in this encounter Care Teams Animal Control Licensing Worker Relationship Specialty Start Date End Date Clinician, Not Found, [place] [address] PCP - General 03/01/18 documented as of this encounter
--- OUTSIDE RECORDS SUMMARY | 2024-06-05 11:37 | XMS_ITS | Continuity of Care Document ---
Author Organization [facility] Address [address] [place] [address] Phone Care Team Providers Care Cobol Developer Name Role Phone Unavailable Unavailable Unavailable Allergies, [...] Copied on Encounter [facility], [address], [place], [id number] , [place] tel:[phone] [facility] No Information May-2 No Information Office/Outpat ient Visit,Est, Mod [facility], [address], [place], [id number] , [place] tel:[phone] [facility] Other idiopathic scoliosis, lumbar region Rafa Miller. [facility], [address], [facility] [address], [place], [place], [id number], [place]. tel:[phone] Referring Provider: Terry Grant, [facility] [address] [place], [address]. tel:[phone] Office/Outpat ient Visit,New, Mod [facility], [address], [place], [place], [id number] , [place] tel:[phone] [facility] Spinal stenosis, lumbar region with neurogenic claudication Spondylolysi s, lumbar regionOther idiopathic scoliosis, lumbar region 1 No Information Referring Provider: Terry Grant, [facility] [address] [place], [address]. tel:[phone] Family History Family Member Type Diagnosis Age At Onset No Information Payers Payer name Insurance type Covered constitution party ID Authorzaydaa brigette(s) Medicare [id number] For Life/Retired Hunter [id number] Social History Type Description Quantity Date Captured [...]
--- OUTSIDE RECORDS SUMMARY | 2024-06-05 11:38 | XMS_ITS | Clinical Summary ---
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 0 5 Active atorvastatin (LIPITOR) 40 mg tablet Take 40 mg by mouth at bedtime. 0 9 Active levothyroxine (SYNTHROID) 75 mcg tablet Take 1 Tablet by mouth before breakfast. 2 Active allopurinoL (ZYLOPRIM) 100 mg tablet Take 200 mg by mouth once daily. Active furosemide (LASIX) 20 mg tabletIndication s:Acute [...] once daily. Until directed by anticoagulation clinic. 4 Active Additional Information Patient taking differently: (No dose reported), (No route reported), (No frequency reported), 2.5 mg daily except SKIP dose on Tuesdays, Fridays, Reported on 05/07/2024 metoprolol succinate (TOPROL XL) 25 mg Sustained-Releas e tabletIndication s:Persistent atrial fibrillation (HC),Cardiomyopa thy, unspecified type (HC) Take 1 Tablet (25 mg) by mouth two times daily. 60 Tablet 2 4 Active amiodarone (CORDARONE) 200 mg tabletIndication s:Persistent atrial fibrillation (HC) Take 2 Tablets (400 mg) by mouth two times daily. 03/31/2024: Reduce to 1 tablet (200 mg) by mouth twice daily. 04/14/2024: Reduce to 1 tablet (200 mg) by mouth once daily. 60 Tablet 2 4 Active diphenhydrAMINE- acetaminophen 25-500 mg (Tylenol PM Extra Strength) 25-500 mg tablet Take 2 Tablets by mouth at bedtime if needed. Max acetaminophen dose: 4000mg in 24 hrs. Active predniSONE (DELTASONE) 1 mg tablet 9 mg daily x 2 weeks starting 05/05/24 8 mg daily x 2 weeks 7 mg daily x 2 weeks 6 mg daily x 2 weeks 5 mg daily until directed otherwise Active warfarin (COUMADIN) 1 mg tabletIndication s: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) Take 1 Tablet (1 mg) by mouth once daily. Take 2 mg today (05/16) then 1 mg on Sunday (05/17), and 1 mg on Sunday (05/18). Recheck INR on Sunday (05/19). 4 Tablet 4 Active acetaminophen (TYLENOL EXTRA STRGTH) 500 mg tablet Take 1,000 mg by mouth at bedtime. Max acetaminophen dose: 4000mg in 24 hrs. 05/07/20 24 Discontinued( Pharmacist change per medication history (E-cancel not sent)) durable medical equipment (DME)Indications :Ulcer of right foot with fat layer exposed (HC) [id number] Squared Toe Post OP Shoe, Small 1 Each 4 05/07/20 Discontinued( Pharmacist change per medication history (E-cancel not sent)) predniSONE (DELTASONE) 1 mg tablet Take 2 mg by mouth once daily with a meal. 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 4 05/07/20 24 Discontinued( Pharmacist change per medication history (E-cancel not sent)) amoxicillin-clav ulanate (AUGMENTIN) 500-125 mg tabletIndication s:skin and skin structure infection Take 1 Tablet by mouth two times daily with meals for 4 days. 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 10/10/2021 Chronic tophaceous gout 10/01/2020 Right bundle branch block 02/22/2005 Overview (05/07/2024): LW Onset: [id number] Hypertension Hypothyroidism Hypercholesteremia HLD (hyperlipidemia) Neuropathy Rheumatoid arthritis RLS (restless legs syndrome) Encounters Date Type Department Care Team Description 06/04/2024 2:00 PM CDT Office Visit [facility] [address] [place] [address] Toney Winchester, DPM Post-op (Right foot, DOS 05/12/24-Ayah LYN, 3 week post op) 06/04/2024 Travel 05/12/2024 12:41 PM CDT Anesthesia Event [facility] [address] [place], [place] [phone] Maegan Reyes, SLEEVE BASTER 05/12/2024 12:30 PM CDT - 05/12/2024 2:37 PM CDT Surgery [facility] [address] [place] [address] Ervin Davis DPM INCISION DRAINAGE RIGHT FOOT 05/07/2024 11:01 AM CDT - 05/16/2024 2:45 PM CDT Hospital Encounter [facility] [address] [place] [address] Sarita Ndiaye MD Melby, MD Florencio Trevino, MD David Schafer, Nikolai Alanis, DO Martinez, Julien Glass, CARROLL [facility], w Hospitalists Of 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) (Primary Dx); Acute osteomyelitis of right foot (HC) Discharge Disposition: Home Self Care 05/07/2024 10:26 AM CDT Anesthesia Event [facility] [address] [place] [address] Tana Ward MD Brown, Stephen Edmund Olney, SLEEVE BASTER 05/07/2024 Travel 05/02/2024 Orders Only [facility] Scanner 1 scan: (1-Ord) [facility], INR, 05/02/2024 05/02/2024 Orders Only [facility] Scanner 1 scan: (1-Ord) [place], INR, 05/02/2024 05/02/2024 Telephone [facility] [address] [phone] Ines Kee RN Anticoagulation 04/23/2024 Telephone [facility] [address] [phone] Vaishnavi Brownlee, RN 04/23/2024 Orders Only [facility] [address] [facility] [address] [place] [phone] Sarita Ndiaye MD <No scans attached> 04/11/2024 Telephone [facility] [address] [phone] Nasim Fonseca MD Symptom Update 03/25/2024 12:40 PM CDT Anesthesia Event [facility] [address] [place] [address] Shell Velasco MD Wilson Paul PierreERICKSON nguyen 03/25/2024 10:28 AM CDT - 03/25/2024 2:35 PM CDT Hospital Encounter [facility] [address] [place] [address] Moriah Zapata, HAN Ward, Tana Garcia MD Persistent atrial fibrillation (HC) (Primary Dx); Left atrial thrombus; 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); Cardiomyopathy, unspecified type (HC) Discharge Disposition: Home Self Care 03/25/2024 Travel 03/17/2024 Telephone [employer] [facility] [address] [place] [phone] Cardiology, Anw Cardiology Appointment from Last 3 Months Immunizations Name Administration Dates Next Due HepA-HepB ([employer]) 11/20/2012,10/17/2012 Influenza Virus, Unspecified 06/15/2020, 06/15/2020,07/01/2019,2017,06/06/2012,06/27/2011,06/14/2010,1 ,05/21/2006,08/10/2005, 005,05/04/2004,05/04/2004,06/05/2003,,08/08/2001 Influenza, High-dose Inactivated 019,07/01/2019,05/27/2018,2017,05/30/2017,05/15/2016,04/28/2014 Influenza, High-dose Quadriv alent Inactivated 06/15/2020 Influenza, IIV3 (Age 6-35 mos) 04/21/2013,2008 Influenza, Inactivated AIIV4 (Age 65+ Years) Preserv Free 07/08/2021,06/15/2020 Influenza, Inactivated IIV3 (Age 65+ Years) Preserv Free 05/14/2024(Deferred: - Want to wait till after PPM) Pneumococcal Poly,23-Valent (Pneumovax) 02/19/2006 Pneumococcal conj 13-Valent [...] file 01/28/2024 Food Insecurity Answer Date Recorded Do you worry your food will run out before you are able to buy more? 1 05/08/2024 Transportation Needs Answer Date Record ed Lack of Transportation (Medical) 1 01/28/2024 Housing Stability Answer Date Recorded What is your housing situation today? 1 05/08/2024 Sex and Gender Information Value Date Recorded Sex Assigned at Not on file Gender Identity Not on file Sexual Orientation Not on file Obstetrics History Last Filed Vital Signs Vital Sign Reading Time Taken Comments Blood Pressure 182/73 06/04/2024 2:21 PM CDT tow er Pulse 69 06/04/2024 2:21 PM CDT Temperature 36.4 ??C (97.6 ??F) 05/16/2024 9:31 AM CD T Respiratory Rate 16 05/16/2024 9:31 AM CDT Oxygen Saturation 98% 06/04/2024 2:21 PM CDT Inhaled Oxygen Concentration - - Weight 65.7 kg (144 lb 12.8 oz) 05/16/2024 6:00 AM CDT Height 162.6 cm (5' 4) 05/12/2024 6:00 AM CDT Body Mass Index 24.85 05/12/2024 6:00 AM CDT Plan of Treatment Upcoming Encounters Date Type Department Care Team (Late st Contact Info) Description 06/17/2024 2:15 PM 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 Office Visit [facility] [address] [place] [address] Toney Winchester DPM [address] [place] [address] Health Maintenance Due Date Last Done Comments Depression screening for age 12+ 1952 BMI (ht and wt on same day) for age 18+ 02/27/1958 DEXA/DXA scan for age 65+ 02/27/2005 Medicare Wellness for age 65+ 02/27/2005 RSV vaccine for adults or (1 - 1-dose 75+ series) 02/27/2015 COVID-19 vaccine series ( season) 2024 06/03/2022, 07/08/2021, 10/11/2020, Additional history exists Influenza for age 65+ 04/13/2024 07/08/2021 , 06/15/2020, 06/15/2020, Additional history exists Tetanus booster 09/24/2029 09/24/2019, 03/13, 07/19/1998 Pneumococcal series for age 65+ Completed 5, 02/19/2006 Zoster (shingles) series for age 50+ Completed 10/18/2018, 08/09/2018, 07/01/2009, Additional history exists Tdap Completed 09/24/2019, 03/26/2009 Medical Devices Implanted Type Area Construction Or Leak Gang Laborer Device Identifier Shelf Expiration Date Model / Serial / Lot Simplex P Bone Cement - Half Dose Implanted:Qty: 2 on 10/18/2021 by Kevin Hogue MD at [facility] Left: Knee [employer] 07/12/2023 / [id number] / [id number] Triathlon Femoral Posterior Augment Implanted:Qty: 1 on 10/18/2021 by Kevin Hogue MD at [facility] Left: Knee [employer] 06/01/2025 / [id number]-A-400 / [id number] Simplex P Bone Cement Full Dose Implanted:Qty: 2 on 10/18/2021 by Kevin Hogue MD at [facility] Left: Knee [employer] 09/12/2023 / [id number] / [id number] Triathlon Fluted Stem - Tibia Implanted:Qty: 1 on 10/18/2021 by Kevin Hogue MD at [facility] Left: Knee [employer] 10/09/2025 / [id number] / [id number] Tri[employer]lon Tritanium Tibial Symmetric Cone Augment Implanted:Qty: 1 on 10/18/2021 by Kevin Hogue MD at [facility] Left: Knee [employer] 05/04/2026 / [id number]-A-130 / [id number] Triathlon Total Knee Cannon Tibial Baseplate Implanted:Qty: 1 on 10/18/2021 by Kevin Hogue MD at [facility] Left: Knee [employer] 12/19/2025 / [id number]-B-400 / [id number] Triathlon Fluted Stem - Femur Implanted:Qty: 1 on 10/18/2021 by Kevin Hogue MD at [facility] Left: Knee [employer] 06/15/2025 / [id number] / [id number] Triathlon Total Stabilizer Femoral Component Implanted:Qty: 1 on 10/18/2021 by Kevin Hogue MD at [facility] Left: Knee [employer] 01/16/2026 / [id number] / [id number] Triathlon X3 Total Stablizer+ Tibial Insert Implanted:Qty: 1 on 10/18/2021 by Kevin Hogue MD at [facility] Left: Knee [employer] 08/31/2026 / [id number]-G-[id number] -[id number] / [id number] Triathlon Femoral Posterior Augment Implanted:Qty: 1 on 10/18/2021 by Kevin Hogue MD at [facility] Left: Knee [employer] 09/05/2025 / [id number]-A-[id number] / [id number] Procedures Procedure Name Priority Date/Time Associated Diagnosis Comments SCAN-CARDIAC STRIP 05/16/2024 9: 59 AM CDT HEMOGLOBIN Early AM 05/16/2024 7:28 AM CDT WHITE BLOOD COUNT Early AM 05/16/2024 7:2 8 AM CDT CREATININE Early AM 05/16/2024 7:28 AM CDT POTASSIUM Early AM 05/16/2024 7:28 AM CDT SODIUM Early AM 05/16/2024 7:28 AM CDT PROTIME-INR Early AM 05/16/2024 7:28 AM CDT SCAN-CARDIAC STRIP 05/15/2024 8: 48 PM CDT PROTIME-INR Early AM 05/15/2024 8:05 AM CDT SCAN-CARDIAC STRIP 05/15/2024 7: 30 AM CDT SCAN-CARDIAC STRIP 05/15/2024 12:35 AM CDT SCAN-CARDIAC STRIP 05/14/2024 3: 06 PM CDT SCAN-CARDIAC STRIP 05/14/2024 7: 43 AM CDT PLATELET COUNT Early AM 05/14/2024 6:04 AM CDT HEMOGLOBIN Early AM 05/14/2024 6:04 AM CDT WHITE BLOOD COUNT Early AM 05/14/2024 6:0 4 AM CDT CREATININE Early AM 05/14/2024 6:04 AM CDT ELECTROLYTE PANEL Early AM 05/14/2024 6:0 4 AM CDT PROTIME-INR Early AM 05/14/2024 6:04 AM CDT SCAN-CARDIAC STRIP 05/13/2024 9: 25 AM CDT PROTIME-INR Early AM 05/13/2024 7:46 AM CDT SCAN-CARDIAC STRIP 05/13/2024 3: 41 AM CDT XR FOOT 3 VIEWS RIGHT PORTABLE Routine 05/12/2024 2:30 PM CDT PATH TISSUE EXAM Today 05/12/2024 1:28 PM CDT TISSUE CULTURE, STAIN (AEROBIC) Today 05/12/2024 1:28 PM CDT ANAEROBIC CULTURE Today 05/12/2024 1:2 8 PM CDT AMPUTATION TOE Class D Urgent 05/12/2024 12:22 PM CDT RIGHT FOOT INFECTION, OSTEOMYELITIS Case Notes MACSUPINESAGITTAL SAW INCISION DRAINAGE FOOT Class D Urgent 05/12/2024 12:22 PM CDT RIGHT FOOT INFECTION, OSTEOMYELITIS Case Notes MACSUPINESAGITTAL SAW SCAN-CARDIAC STRIP 05/12/2024 9: 52 AM CDT PROTIME-INR Early AM 05/12/2024 7:06 AM CDT SCAN-CARDIAC STRIP 05/12/2024 2: 15 AM CDT SCAN-CARDIAC STRIP 05/11/2024 8: 20 AM CDT PROTIME-INR Early AM 05/11/2024 6:25 AM CDT SCAN-CARDIAC STRIP 05/10/2024 9: 49 PM CDT US ANKLE BRACHIAL INDEX BILATERAL Routine 05/10/2024 4:10 PM CDT PROTIME-INR Early AM 05/10/2024 6:55 AM CDT SCAN-CARDIAC STRIP 05/10/2024 3: 32 AM CDT SCAN-CARDIAC STRIP 05/09/2024 3: 39 PM CDT US ARTERIAL LOWER EXTREMITY BILATERAL Routine 05/09/2024 2:18 PM CDT BASIC METABOLIC PANEL CLARISA 05/09/2024 11:15 AM CDT ANAEROBIC CULTURE Today 05/09/2024 9:3 2 AM CDT AEROBIC BACTERIAL CULTURE, STAIN Today 05/09/2024 9:32 AM CDT PATH TISSUE EXAM Today 05/09/2024 9:29 AM CDT SCAN-CARDIAC STRIP 05/09/2024 7: 40 AM CDT WHITE BLOOD COUNT Early AM 05/09/2024 7:3 1 AM CDT PROTIME-INR Early AM 05/09/2024 7:31 AM CDT EKG 12 LEAD STAT 05/08/2024 10:29 PM CDT SCAN-CARDIAC STRIP 05/08/2024 10:21 PM CDT MR FOOT RIGHT WO Routine 05/08/2024 8:22 PM CDT SCAN-CARDIAC STRIP 05/08/2024 8: 12 AM CDT EKG 12 LEAD Early AM 05/08/2024 6:52 AM CDT CREATININE Early AM 05/08/2024 6:51 AM CDT VANCOMYCIN Timed 05/08/2024 6:51 AM CDT CBC W PLT NO DIFF Early AM 05/08/2024 6:5 1 AM CDT PROTIME-INR Early AM 05/08/2024 6:51 AM CDT SCAN-CARDIAC STRIP 05/08/2024 4: 50 AM CDT XR CHEST 2 VIEWS PA AND LATERAL Routine 05/07/2024 5:29 PM CDT XR FOOT 3 VIEWS RIGHT Routine 05/07/2024 5:29 PM CDT MRSA/SA PCR Today 05/07/2024 5:03 PM CDT UA W/ SEDIMENT EXAM REFLEXED PER CRITERIA Today 05/07/2024 5:03 PM CDT SEDIMENTATION RATE CLARISA 05/07/2024 4: 50 PM CDT EKG 12 LEAD STAT 05/07/2024 3:42 PM CDT DIFFERENTIAL CLARISA 05/07/2024 12:50 PM CDT EXTRA TUBE GOLD/SST Today 05/07/2024 12:50 PM CDT PROTIME-INR Preop 05/07/2024 12:50 PM CDT BASIC METABOLIC PANEL Preop 05/07/2024 12:50 PM CDT CBC W PLT NO DIFF Preop 05/07/2024 12:50 PM CDT EKG 12 LEAD Preop 05/07/2024 12:49 PM CDT SCAN-CARDIAC STRIP 05/07/2024 12:00 AM CDT SCAN-LABORATORY REPORT 05/02/2024 12:00 AM CDT SCAN-LABORATORY REPORT 05/02/2024 12:00 AM CDT ECHO RAMEZ WO CONTRAST W COLOR [...] 03/25/2024 10:52 AM CDT SCAN-CARDIAC STRIP 03/25/2024 12:00 AM CDT from Last 3 Months Results * SCAN-CARDIAC STRIP (05/16/2024 9:59 AM CDT) Scanner OTHER * (ABNORMAL) WHITE BLOOD COUNT (05/16/2024 7:28 AM CDT) Only the most recent of3 resultswithin the time period is included. WHITE BLOOD COUNT 11.8(H) 4.5 - 11.0 thou/cu mm 05/16/2024 8:07 AM CDT [facility] NRBC 0.0 % 05/16/2024 8:07 AM CDT [facility] ABS NRBC 0.0 thou /cu mm 05/16/2024 8:07 AM CDT [facility] Blood BLOOD SPECIMEN / Unknown Butterfly / Unknown 05/16/2024 7:28 AM CDT 05/16/2024 7:50 AM CDT Nikolai Hernandez DO HEMATOLOGY [facility] [address] [place] [address], * (ABNORMAL) HEMOGLOBIN (05/16/2024 7:28 AM CDT) Only the most recent of2 resultswithin the time period is included. HEMOGLOBIN 12.6 12.0 - 16.0 g/dL 05/16/2024 8:07 AM CDT [facility] MCV 101(H) 80 - 100 fL 05/16/2024 8:07 AM CDT [facility] Blood BLOOD SPECIMEN / Unknown Butterfly / Unknown 05/16/2024 7:28 AM CDT 05/16/2024 7:50 AM CDT Nikolai Hernandez DO HEMATOLOGY Performing Organization Address City/[facility] Co de Phone Number [facility] [address] [address], [place] * SODIUM (05/16/2024 7:28 AM CDT) SODIUM 140 136 - 145 mmol/L 05/16/2024 8:28 AM CDT [facility] Blood BLOOD SPECIMEN / Unknown Butterfly / Unknown 05/16/2024 7:28 AM CDT 05/16/2024 7:50 AM CDT Nikolai Hernandez DO CHEMISTRY Performing Organization Address [facility] Phone Number [facility] [address] [address], [place] * POTASSIUM (05/16/2024 7:28 AM CDT) Only the most recent of2 resultswithin the time period is included. POTASSIUM 4.3 3.5 - 5.1 mmol/L 05/16/2024 8:28 AM CDT [facility] Blood BLOOD SPECIMEN / Unknown Butterfly / Unknown 05/16/2024 7:28 AM CDT 05/16/2024 7:50 AM CDT Nikolai Hernandez DO CHEMISTRY Performing Organization Address [facility] Co de Phone Number [facility] [address] [address], [place] * (ABNORMAL) CREATININE (05/16/2024 7:28 AM CDT) Only the most recent of4 resultswithin the time period is included. eGFR 31(L) >90 mL/min/1.7 3m2 05/16/2024 8:28 AM CDT [facility] Comment:As of 2021, eG FR is calculated by the CKD-EPI creatinine equation without race adjustment. ??eGFR can be influenced by muscle mass, exercise, and diet. ??The reported eGFR is an estimation only and is only applicable if the renal function is stable. CREATININE 1.64(H) 0.50 - 0.90 mg/dL 05/16/2024 8:28 AM CDT [facility] Blood BLOOD SPECIMEN / Unknown Butterfly / Unknown 05/16/2024 7:28 AM CDT 05/16/2024 7:50 AM CDT Nikolai Hernandez DO CHEMISTRY [facility] [address] [place] [address], * (ABNORMAL) PROTIME-INR (05/16/2024 7:28 AM CDT) Only the most recent of11 resultswithin the time period is included. Pathologist [facility] INR 2.5(H) <1.3 05/16/2024 8:09 AM CDT [facility] PROTIME 27.2(H) 10.3 - 12.3 sec 05/16/2024 8:09 AM CDT [facility] Blood BLOOD SPECIMEN / Unknown Butterfly / Unknown 05/16/2024 7:28 AM CDT 05/16/2024 7:50 AM CDT Narrative [facility] - 05/16/2024 8:09 AM CDT ?Therapeutic Range 2.0-3.0 for most [...] seconds if the patient is on UFH. Sarita Ndiaye MD HEMATOLOGY Performing Organization Address [facility]/ZIP Co de Phone Number [facility] [address] [address], [place] * SCAN-CARDIAC STRIP (05/15/2024 8:48 PM CDT) Scanner OTHER * SCAN-CARDIAC STRIP (05/15/2024 7:30 AM CDT) Scanner OTHER * SCAN-CARDIAC STRIP (05/15/2024 12:35 AM CDT) Scanner OTHER * SCAN-CARDIAC STRIP (05/14/2024 3:06 PM CDT) Scanner OTHER * SCAN-CARDIAC STRIP (05/14/2024 7:43 AM CDT) Scanner OTHER * (ABNORMAL) PLATELET COUNT (05/14/2024 6:04 AM CDT) [facility] PLATELET COUNT 131(L) 140 - 440 thou/cu mm 05/14/2024 6:39 AM CDT [facility] MPV 13.0(H) 6.5 - 11.0 fL 05/14/2024 6:39 AM CDT [facility] Blood BLOOD SPECIMEN / Unknown Butterfly / Unknown 05/14/2024 6:04 AM CDT 05/14/2024 6:29 AM CDT Nikolai Hernandez DO HEMATOLOGY Performing Organization Address [facility]/ZIP Co de Phone Number [facility] [address] [place] [id number], [place] * ELECTROLYTE PANEL (05/14/2024 6:04 AM CDT) SODIUM 138 136 - 145 mmol/L 05/14/2024 6:55 AM CDT [facility] POTASSIUM 4.2 3.5 - 5.1 mmol/L 05/14/2024 6:55 AM CDT [facility] CHLORIDE 104 98 - 107 mmol/L 05/14/2024 6:55 AM CDT [facility] CO2,TOTAL 22 22 - 29 mmol/L 05/14/2024 6:55 AM CDT [facility] ANION GAP 12 5 - 18 05/14/2024 6:55 AM CDT [facility] Blood BLOOD SPECIMEN / Unknown Butterfly / Unknown 05/14/2024 6:04 AM CDT 05/14/2024 6:29 AM CDT Nikolai Hernandez DO CHEMISTRY [facility] [address] [place] [address], * SCAN-CARDIAC STRIP (05/13/2024 9:25 AM CDT) Scanner OTHER * SCAN-CARDIAC STRIP (05/13/2024 3:41 AM CDT) Scanner OTHER * XR Foot 3 Views Right Portable- Non-Weight Bearing (05/12/2024 2:30 PM CDT) Anatomical Region Laterality Modality FEET, FOOT R Digital Radiogra phy 05/12/2024 2:50 PM CDT Narrative 05/12/2024 2:50 PM CDT For Patients: ??As a result of the Century Cures Act, medical imaging exams and procedure reports are released immediately into your electronic medical record. ??You may view this report before your referring provider. ??If you have questions, please contact your health care provider. Indication: Postop evaluation. Technique: Right foot 3 views. Comparison: 05/07/2024. Findings/Impression: Transmetatarsal resection of the right 2nd toe. No other acute findings or change. Dictated by Ender Martinez MD @ May 12 2024 ??2:50PM (Electronically Signed) [email or web address] Procedure Note Ender Martinez MD - 05/12/2024 For Patients: As a result of the Cures Act, medical imagingexams and procedure reports are released immediately into your electronicmedical record. You may view this report before your referring provider.If you have questions, please contact your health care provider. Indication: Postop evaluation. Technique: Right foot 3 views. Comparison: 05/07/2024. Findings/Impression: Transmetatarsal resection of the right 2nd toe. No other acute findings orchange. Dictated by Ender Martinez MD @ May 12 2024 2:50PM (Electronically Signed) [email or web address] Ervin Davis DPM GENERAL IMAG ING * (ABNORMAL) TISSUE CULTURE, STAIN (AEROBIC) (05/12/2024 1:28 PM CDT) CULTURE RESULT(A) 05/16/2024 11:58 AM CDT [facility] CULTURE 1+ Staphylococcus coagulase negative 05/16/2024 11:58 AM CDT [facility] GRAM STAIN No PMNs 05/16/2024 11:58 AM CDT [facility] GRAM STAIN No RBCs 05/16/2024 11:58 AM CDT [facility] GRAM STAIN No Epithelial cells 05/16/2024 11:58 AM CDT [facility] GRAM STAIN No organisms seen 024 11:58 AM CDT [facility] Bone (Right foot) Non-Blood / Unknown 05/12/2024 1:28 PM CDT 05/12/2024 2:10 PM CDT Narrative Organism Antibiotic Method Susceptibility Staphylococcus coagulase negative OXACILLIN >=4: R Staphylococcus coagulase negative CLINDAMYCIN 0.25: S Staphylococcus coagulase negative DOXYCYCLINE 2: S Staphylococcus coagulase negative CEFAZOLIN R Staphylococcus coagulase negative VANCOMYCIN 1: S Staphylococcus coagulase negative TRIMETHOPRIM/SULF <=0.5/9.5: S Ervin Davis DPM MICROBIOLOGY [facility] [address] [place] [address], * PATH TISSUE EXAM (05/12/2024 1:28 PM CDT) Only the most recent of2 resultswithin the time period is included. Case Report Pathology Report ?Case: [id number] ? Authorizing Provider: ??Ervin Davis, ??Collected: ? 05/12/2024 1328 ? DPM ? Ordering Location: ? [facility] ?Received: ?05/12/2024 1356 ? Hospital ? Pathologist: ? Tammie Wilkins MD ? Specimens: ?? A) - Right foot, Bone second metatarsal right ? B) - Right foot, Bone second proximal phalynx right ? 05/15/2024 4:01 PM CDT [facility] Final Diagnosis A) RIGHT FOOT, SECOND METATARSAL BONE, PARTIAL AMPUTATION: 1. Portion of bone and soft tissue with focal acute inflammation, granulation tissue and foci of bone remodeling/reactiv e changes, negative for acute osteomyelitis (no neutrophils in trabecular bone) 2. Bone and soft tissue margins are negative for acute inflammation B) RIGHT FOOT, SECOND PROXIMAL PHALANX BONE, PARTIAL AMPUTATION: 1. Portion of bone and soft tissue negative for acute osteomyelitis 2. Bone and soft tissue margins are negative for acute inflammation 05/15/2024 4:01 PM T [facility] Clinical Information Right foot osteomyelitis. Procedure: INCISION DRAINAGE RIGHT FOOT and PARTIAL 2ND TOE AMPUTATION Procedure(s) findings: Soft bone of the right distal 2nd metatarsal head consistent with diagnosis. 2nd proximal phalanx base was hard, no clinical evidence of osteomyelitis. No soft tissue necrosis or purulence present. Hard bone at all resection margins. Good bleeding to bone, deep tissue, and skin. Primary closure of dorsal wound. Plantar wound ellipsed and close 05/15/2024 4:01 PM CDT [facility] Gross Description A) Received fresh labeled with the patient's name and right foot bone second metatarsal right, is a 1.8 x 1.8 x 1.8 cm irregular portion of fernandez-pink and ragged bone with attached soft tissue. ??The articular cartilage is roughened and granular. ??The resection margin is inked blue and the specimen is sectioned to reveal a firm medullary bone. ??The specimen is entirely submitted following decalcification in 2 cassettes. B) Received fresh labeled with the patient's name and right foot bone second proximal phalanx right, is a 1.5 x 1.3 x 0.3 cm red-brown portion of bone with opposing smooth aspects. ??Purple ink is noted at 1 aspect designating the true margin. ??The true margin is reinked blue in pathology. ??The specimen is entirely submitted en face following decalcification in 1 cassette. JKT 05/12/2024 05/15/2024 4:01 PM CDT [facility]ORY Microscopic Description The final diagnosis is based on microscopic examination of appropriate sections of all specimens. 05/15/2024 4:01 PM CDT [facility] Additional Information Interpreted at [facility] Central [facility] - [address] [place] [address] [address] [address] 05/15/2024 4:01 PM CDT [facility] EN[facility] Bone (Right foot) 05/12/2024 1:28 PM CDT 05/12/2024 1:56 PM CDT Specimen from bone (specimen) (Right foot) 05/12/2024 1:30 PM CDT 05/12/2024 1:56 PM CDT Ervin Davis DPM PATHOLOGY/CY TOLOGY [facility] [address] [place] [address], * ANAEROBIC CULTURE (05/12/2024 1:28 PM CDT) Only the most recent of2 resultswithin the time period is included. CULTURE No anaerobes isolated 05/19/2024 1:27 PM CDT [facility] Bone (Right foot) Non-Blood / Unknown 05/12/2024 1:28 PM CDT 05/12/2024 2:10 PM CDT Ervin Davis DPM MICROBIOLOGY [facility] [address] [place] [address], * SCAN-CARDIAC STRIP (05/12/2024 9:52 AM CDT) Scanner OTHER * SCAN-CARDIAC STRIP (05/12/2024 2:15 AM CDT) Scanner OTHER * SCAN-CARDIAC STRIP (05/11/2024 8:20 AM CDT) Scanner OTHER * SCAN-CARDIAC STRIP (05/10/2024 9:49 PM CDT) Scanner OTHER * US ANKLE BRACHIAL INDEX BILATERAL (05/10/2024 4:10 PM CDT) Anatomical Region Laterality Modality ANKLES, ANKLE L, ANKLE R Ultraso und 05/14/2024 6:32 AM CDT Impressions 05/14/2024 6:32 AM CDT Right: Unable to obtain KELVIN. Left: Unable to obtain KELVIN. Dictated by Ender Martinez MD @ 05/14/2024 6:32:36 AM (Electronically Signed) Narrative 05/14/2024 6:32 AM CDT For Patients: ??As a result of the 21st Century Cures Act, medical imaging exams and procedure reports are released immediately into your electronic medical record. ??You may view this report before your referring provider. ??If you have questions, please contact your health care provider. EXAM: Lower extremity Doppler ultrasound with ankle brachial indices. TECHNIQUE: Ultrasound arterial lower extremity bilateral angio ankle-brachial indices. INDICATION: Nonhealing right foot ulcer. COMPARISON: None. FINDINGS: Right Brachial: 154 mmHg Right SAFETY PHYSICIAN: Greater than 254 mmHg (KELVIN NC) Right DPA: Unable to obtain Left Brachial: 169 mmHg Left SAFETY PHYSICIAN: Unable to obtain Left DPA: Greater than 254 mmHg (KELVIN NC) KELVIN: 1.0-1.4 - normal 0.9-0.99 - borderline 0.80-0.89 - mild 0.50-0.79 - moderate 0.30-0.49 - severe < 0.30 - critical Procedure Note Ender Martinez MD - 05/14/2024 For Patients: As a result of the Century Cures Act, medical imagingexams and procedure reports are released immediately into your electronicmedical record. You may view this report before your referring provider.If you have questions, please contact your health care provider. EXAM: Lower extremity Doppler ultrasound with ankle brachial indices. TECHNIQUE: Ultrasound arterial lower extremity bilateral angio ankle-brachialindices. INDICATION: Nonhealing right foot ulcer. COMPARISON: None. FINDINGS: Right Brachial: 154 mmHg Right SAFETY PHYSICIAN: Greater than 254 mmHg (KELVIN NC) Right DPA: Unable to obtain Left Brachial: 169 mmHg Left SAFETY PHYSICIAN: Unable to obtain Left DPA: Greater than 254 mmHg (KELVIN NC) KELVIN: 1.0-1.4 - normal 0.9-0.99 - borderline 0.80-0.89 - mild 0.50-0.79 - moderate 0.30-0.49 - severe < 0.30 - critical IMPRESSION: Right: Unable to obtain KELVIN. Left: Unable to obtain KELVIN. Dictated by Ender Martinez MD @ 05/14/2024 6:32:36 AM (Electronically Signed) Erlinda Osorio NP US * SCAN-CARDIAC STRIP (05/10/2024 3:32 AM CDT) Scanner OTHER * SCAN-CARDIAC STRIP (05/09/2024 3:39 PM CDT) Scanner OTHER * US ARTERIAL LOWER EXTREMITY BILATERAL (05/09/2024 2:18 PM CDT) Anatomical Region Laterality Modality LEGS, LEG L, LEG R Ultrasound 05/09/2024 7:18 PM CDT Impressions 05/09/2024 7:18 PM CDT Blood flow was not visualized in the bilateral posterior tibial arteries. Remainder of the bilateral lower extremity arteries are patent. Blood flow is demonstrated in the foot. No critical stenoses. Dictated by Ender Martinez MD @ 05/09/2024 7:18:50 PM (Electronically Signed) Narrative 05/09/2024 7:18 PM CDT For Patients: ??As a result of the Cures Act, medical imaging exams and procedure reports are released immediately into your electronic medical record. ??You may view this report before your referring provider. ??If you have questions, please contact your health care provider. INDICATION: Nonhealing right foot ulcer. TECHNIQUE: Bilateral lower extremity arterial duplex ultrasound with color Doppler and spectral waveform analysis. COMPARISON: None. FINDINGS: Grayscale images demonstrate atherosclerotic plaque in both lower extremities. Right leg arteries: SENIOR SALES ADMINISTRATOR: 112 cm/sec, triphasic. PFA: 45 cm/sec, triphasic. SFA: 80 cm/sec, triphasic. Pop: 74 cm/sec, triphasic. SAFETY PHYSICIAN: 0 cm/sec,. CRAIG: 24 cm/sec, triphasic. DPA: 14 cm/sec, triphasic. Left leg arteries: SENIOR SALES ADMINISTRATOR: 78 cm/sec, triphasic. PFA: 59 cm/sec, triphasic. SFA: 81 cm/sec, triphasic. Pop: 40 cm/sec, triphasic. SAFETY PHYSICIAN: 0 cm/sec,. CRAIG: 42 cm/sec, triphasic. DPA: 44 cm/sec, triphasic. Procedure Note Ender Martinez MD - 05/09/2024 For Patients: As a result of the Cures Act, medical imagingexams and procedure reports are released immediately into your electronicmedical record. You may view this report before your referring provider.If you have questions, please contact your health care provider. INDICATION: Nonhealing right foot ulcer. TECHNIQUE: Bilateral lower extremity arterial duplex ultrasound with color Dopplerand spectral waveform analysis. COMPARISON: None. FINDINGS: Grayscale images demonstrate atherosclerotic plaque in both lowerextremities. Right leg arteries: SENIOR SALES ADMINISTRATOR: 112 cm/sec, triphasic. PFA: 45 cm/sec, triphasic. SFA: 80 cm/sec, triphasic. Pop: 74 cm/sec, triphasic. SAFETY PHYSICIAN: 0 cm/sec,. CRAIG: 24 cm/sec, triphasic. DPA: 14 cm/sec, triphasic. Left leg arteries: SENIOR SALES ADMINISTRATOR: 78 cm/sec, triphasic. PFA: 59 cm/sec, triphasic. SFA: 81 cm/sec, triphasic. Pop: 40 cm/sec, triphasic. SAFETY PHYSICIAN: 0 cm/sec,. CRAIG: 42 cm/sec, triphasic. DPA: 44 cm/sec, triphasic. IMPRESSION: Blood flow was not visualized in the bilateral posterior tibial arteries.Remainder of the bilateral lower extremity arteries are patent. Blood flowis demonstrated in the foot. No critical stenoses. Dictated by Ender Martinez MD @ 05/09/2024 7:18:50 PM (Electronically Signed) Rasta Anne NP US * (ABNORMAL) BASIC METABOLIC PANEL (05/09/2024 11:15 AM CDT) Only the most recent of2 resultswithin the time period is included. SODIUM 138 136 - 145 mmol/L 05/09/2024 12:06 PM CDT [facility] POTASSIUM 4.8 3.5 - 5.1 mmol/L 05/09/2024 12:06 PM CDT [facility] CHLORIDE 99 98 - 107 mmol/L 05/09/2024 12:06 PM T [facility] CO2,TOTAL 22 22 - 29 mmol/L 05/09/2024 12:06 PM T [facility] ANION GAP 17 5 - 18 05/09/2024 12:06 PM CDT [facility] GLUCOSE 127(H) 70 - 99 mg/dL 05/09/2024 12:06 PM T [facility] CALCIUM 9.8 8.8 - 10.2 mg/dL 05/09/2024 12:06 PM T [facility] BUN 52(H) 8 - 23 mg/dL 05/09/2024 12:06 PM T [facility] CREATININE 1.87(H) 0.50 - 0.90 mg/dL 05/09/2024 12:06 PM CDT [facility] BUN/CREAT RATIO 28(H) 10 - 20 12:06 PM CDT [facility] eGFR 26(L) >90 mL/min/1.7 3m2 05/09/2024 12:06 PM CDT [facility] Comment:As of 2021, eG FR is calculated by the CKD-EPI creatinine equation without race adjustment. ??eGFR can be influenced by muscle mass, exercise, and diet. ??The reported eGFR is an estimation only and is only applicable if the renal function is stable. Blood BLOOD SPECIMEN / Unknown Venipuncture / Unknown 05/09/2024 11:15 AM CDT 05/09/2024 11:28 AM CDT Porsha Baldwin DO CHEMISTRY [facility] [address] [place] [id number], * (ABNORMAL) AEROBIC BACTERIAL CULTURE, STAIN (05/09/2024 9:32 AM CDT) CULTURE RESULT(A) 05/14/2024 7:36 AM CDT [facility] CULTURE 1+ Enterococcus faecalis 05/14/2024 7:36 AM CDT [facility] CULTURE 1+ Mixed eveline present 05/14/2024 7:36 AM CDT [facility] CULTURE 1+ Achromobacter xylosoxidans 05/14/2024 7:36 AM CDT [facility] GRAM STAIN 2+ PMNs 05/14/2024 7:36 AM CDT [facility] GRAM STAIN 4+ RBCs 05/14/2024 7:36 AM CDT [facility] GRAM STAIN No Epithelial cells 05/14/2024 7:36 AM CDT [facility] No organisms seen 024 7:36 AM CDT [facility] Other (Other) Non-Blood / Unknown 05/09/2024 9:32 AM CDT 05/09/2024 9:57 AM CDT Narrative [facility]AL LAB[facility] - 05/14/2024 7:36 AM CDT Mixed Eveline; No Staphylococcus aureus, beta-Strep, Strep. pneumoniae, or Pseudomonas aeruginosa Organism Antibiotic Method Susceptibility Enterococcus faecalis VANCOMYCIN 2: S Enterococcus faecalis AMPICILLIN <=2: S Achromobacter xylosoxidans TRIMETHOPRIM/SULF <=1/19: S Achromobacter xylosoxidans LEVOFLOXACIN 2: S Achromobacter xylosoxidans PIPERACILLIN/TAZO <=4: S Achromobacter xylosoxidans MEROPENEM <=0.25: S Rasta Anne NP MICROBIOLOGY Performing Organization Address City/[facility]/ZIP Co de Phone Number [facility] [address] [place] [address], * SCAN-CARDIAC STRIP (05/09/2024 7:40 AM CDT) Scanner OTHER * EKG 12 Lead - PRN (05/08/2024 10:29 PM CDT) Only the most recent of6 resultswithin the time period is included. Interpretation Sinus bradycardia Right bundle branch block Abnormal ECG When compared with ECG of 08-May-2024 06:52, Inverted T waves have replaced nonspecific T wave abnormality in Inferior leads T wave inversion now evident in Anterior leads BEYOND NOW Ventricular Rate 56 BPM BEYOND NOW Atrial Rate 56 BPM BEYOND NOW P-R Interval 198 ms BEYOND NOW QRS Duration 148 ms BEYOND NOW QT 542 ms BEYOND NOW QTc 523 ms BEYOND NOW P [place] -12 degrees BEYOND NOW R [place] 42 degrees BEYOND NOW T [place] 4 degrees BEYOND NOW 05/08/2024 10:2 9 PM CDT 05/09/2024 2:23 PM CDT Sarita Ndiaye MD EKG ORD Performing Organization Address [facility] Co de Phone Number BEYOND NOW [place], [place] * SCAN-CARDIAC STRIP (05/08/2024 10:21 PM CDT) Scanner OTHER * MR FOOT RIGHT WO (05/08/2024 8:22 PM CDT) Anatomical Region Laterality Modality FOOT R Magnetic Resonan ce 05/08/2024 10:4 5 PM CDT Impressions 05/08/2024 10:45 PM CDT 1. Ulceration plantar to the 2nd metatarsal head with septic arthritis in the 2nd MTP joint and soft tissue extension of the septic joint into the 1st interspace and dorsal subcutaneous tissues. Osteomyelitis in the head of the 2nd metatarsal. Reactive edema in the distal metaphysis and diaphysis of the 2nd metatarsal. 2. Chronic changes of rheumatoid arthritis in the 2nd and 3rd MTP joints. 3. 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 4. Postoperative change in the distal 1st metatarsal. 5. Tailor`s bunion. 6. Degenerative changes of the midfoot with partial ankylosis of the 2nd TMT joint. 7. Non infectious tenosynovitis in the flexor hallucis longus tendon. 8. Diffuse muscular atrophy. Dictated by Washington Calzada MD @ 05/08/2024 10:45:08 PM (Electronically Signed) Narrative 05/08/2024 10:45 PM CDT For Patients: ??As a result of the Cures Act, medical imaging exams and procedure reports are released immediately into your electronic medical record. ??You may view this report before your referring provider. ??If you have questions, please contact your health care provider. EXAM: MRI OF THE RIGHT FOOT, WITHOUT CONTRAST ?? CLINICAL INDICATION: Second metatarsal plantar ulceration with new fluid collection dorsally. Rheumatoid arthritis. COMPARISON PLAIN FILMS: 05/07/2024. COMPARISON CROSS-SECTIONAL IMAGING STUDIES: None. TECHNICAL: Axial, sagittal and coronal T1, PD and STIR images. ?? FINDINGS: SOFT TISSUES JOINTS AND BONES: Ulceration plantar to the 2nd metatarsal head. The soft tissue thickening extends to the plantar margin of the 2nd MTP joint. Effusion and synovitis in the 2nd MTP joint consistent with septic arthritis. There is extension of the joint effusion into the 1st interspace and extending into the dorsal subcutaneous tissues. Destructive changes in the plantar head of the 2nd metatarsal with a small area of fatty marrow replacement. Findings consistent with osteomyelitis. Additional intramedullary edema in the distal metaphysis and diaphysis consistent with reactive edema. Chronic osseous volume loss in the 2nd and 3rd MTP joints consistent with rheumatoid arthritis. Dorsal subluxation of the 2nd and 3rd TMT joints. 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 Postoperative change in the 1st metatarsal head. Tailor`s bunion. Degenerative changes in the midfoot with partial ankylosis of the 2nd TMT joint. TENDONS AND MUSCLES: Non infectious tenosynovitis in the flexor hallucis longus tendon in the hindfoot. Diffuse muscular atrophy. Procedure Note Washington Calzada MD - 05/08/2024 For Patients: As a result of the Cures Act, medical imagingexams and procedure reports are released immediately into your electronicmedical record. You may view this report before your referring provider.If you have questions, please contact your health care provider. EXAM: MRI OF THE RIGHT FOOT, WITHOUT CONTRAST CLINICAL INDICATION: Second metatarsal plantar ulceration with new fluid collection dorsally.Rheumatoid arthritis. COMPARISON PLAIN FILMS: 05/07/2024. COMPARISON CROSS-SECTIONAL IMAGING STUDIES: None. TECHNICAL: Axial, sagittal and coronal T1, PD and STIR images. FINDINGS: SOFT TISSUES JOINTS AND BONES: Ulceration plantar to the 2nd metatarsal head. The soft tissue thickeningextends to the plantar margin of the 2nd MTP joint. Effusion and synovitisin the 2nd MTP joint consistent with septic arthritis. There is extensionof the joint effusion into the 1st interspace and extending into thedorsal subcutaneous tissues. Destructive changes in the plantar head ofthe 2nd metatarsal with a small area of fatty marrow replacement. Findingsconsistent with osteomyelitis. Additional intramedullary edema in thedistal metaphysis and diaphysis consistent with reactive edema. Chronic osseous volume loss in the 2nd and 3rd MTP joints consistent withrheumatoid arthritis. Dorsal subluxation of the 2nd and 3rd TMT joints. 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 Postoperative change in the 1st metatarsal head. Tailor`s bunion. Degenerative changes in the midfoot with partial ankylosis of the 2nd TMTjoint. TENDONS AND MUSCLES: Non infectious tenosynovitis in the flexor hallucis longus tendon in thehindfoot. Diffuse muscular atrophy. IMPRESSION: 1. Ulceration plantar to the 2nd metatarsal head with septic arthritis inthe 2nd MTP joint and soft tissue extension of the septic joint into the1st interspace and dorsal subcutaneous tissues. Osteomyelitis in the headof the 2nd metatarsal. Reactive edema in the distal metaphysis anddiaphysis of the 2nd metatarsal. 2. Chronic changes of rheumatoid arthritis in the 2nd and 3rd MTP joints. 3. 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 4. Postoperative change in the distal 1st metatarsal. 5. Tailor`s bunion. 6. Degenerative changes of the midfoot with partial ankylosis of the 2ndTMT joint. 7. Non infectious tenosynovitis in the flexor hallucis longus tendon. 8. Diffuse muscular atrophy. Dictated by Washington Calzada MD @ 05/08/2024 10:45:08 PM (Electronically Signed) Rasta Anne NP MR * SCAN-CARDIAC STRIP (05/08/2024 8:12 AM CDT) Scanner OTHER * (ABNORMAL) CBC W PLT NO DIFF (05/08/2024 6:51 AM CDT) Only the most recent of2 resultswithin the time period is included. WHITE BLOOD COUNT 11.6(H) 4.5 - 11.0 thou/cu mm 05/08/2024 7:01 AM [facility] RED BLOOD COUNT 3.82(L) 4.00 - 5.20 mil/cu mm 05/08/2024 7:01 AM [facility] HEMOGLOBIN 12.5 12.0 - 16.0 g/dL 05/08/2024 7:01 AM [facility] HEMATOCRIT 39.4 33.0 - 51.0 % 05/08/2024 7:01 AM [facility] MCV 103(H) 80 - 100 fL 05/08/2024 7:01 AM [facility] MCH 32.7 26.0 - 34.0 pg 05/08/2024 7:01 AM [facility] MCHC 31.7(L) 32.0 - 36.0 g/dL 05/08/2024 7:01 AM CDT [facility] RDW 14.9 11.5 - 15.5 % 05/08/2024 7:01 AM CDT [facility] PLATELET COUNT 142 140 - 440 thou/cu mm 05/08/2024 7:01 AM CDT [facility] MPV 12.5(H) 6.5 - 11.0 fL 05/08/2024 7:01 AM CDT [facility] NRBC 0.0 % 05/08/2024 7:01 AM CDT [facility] ABS NRBC 0.0 thou /cu mm 05/08/2024 7:01 AM CDT [facility] Blood BLOOD SPECIMEN / Unknown Venipuncture / Unknown 05/08/2024 6:51 AM CDT 05/08/2024 6:56 AM CDT Porsha Baldwin DO HEMATOLOGY Performing Organization Address City/[facility]/ZIP Co de Phone Number [facility] [address] [place] [address], [place] * VANCOMYCIN (05/08/2024 6:51 AM CDT) VANCOMYCIN 15.8 ug/mL 05/08/2024 7:47 AM CDT [facility] Comment:No Reference Range D efined. DATE OF LAST DOSE,RANDOM Not Given 05/08/2024 7:47 AM CDT [facility] TIME OF LAST DOSE,RANDOM Not Given 05/08/2024 7:47 AM CDT [facility] Blood BLOOD SPECIMEN / Unknown Venipuncture / Unknown 05/08/2024 6:51 AM CDT 05/08/2024 6:56 AM CDT Porsha Baldwin DO CHEMISTRY Performing Organization Address City/[facility]/ZIP Co de Phone Number [facility] [address] [place], [place] [id number], [place] * SCAN-CARDIAC STRIP (05/08/2024 4:50 AM CDT) Scanner OTHER * XR CHEST 2 VIEWS PA AND LATERAL (05/07/2024 5:29 PM CDT) Anatomical Region Laterality Modality CHEST, THORAX, Lung, HEART Digit al Radiography 05/07/2024 11:0 2 PM CDT Impressions 05/07/2024 11:02 PM CDT 1. Mild cardiomegaly is noted. Dictated by Abdulaziz Liz MD @ May 07 2024 11:02PM (Electronically Signed) [email or web address] Narrative 05/07/2024 11:02 PM CDT For Patients: ??As a result of the Cures Act, medical imaging exams and procedure reports are released immediately into your electronic medical record. ??You may view this report before your referring provider. ??If you have questions, please contact your health care provider. INDICATION: Leukocytosis TECHNIQUE: Chest radiograph 2 views COMPARISON: None FINDINGS: Mediastinum: The mediastinum is normal in appearance. Mild cardiomegaly is noted. Lung: Both lungs are unremarkable in appearance. No sign of pleural effusion seen. No pneumothorax is identified. Bone and Soft tissue: Moderate levoscoliosis of the lumbar spine is present. Procedure Note Abdulaziz Liz MD - 05/07/2024 For Patients: As a result of the Cures Act, medical imagingexams and procedure reports are released immediately into your electronicmedical record. You may view this report before your referring provider.If you have questions, please contact your health care provider. INDICATION: Leukocytosis TECHNIQUE: Chest radiograph 2 views COMPARISON: None FINDINGS: Mediastinum: The mediastinum is normal in appearance. Mild cardiomegaly isnoted. Lung: Both lungs are unremarkable in appearance. No sign of pleuraleffusion seen. No pneumothorax is identified. Bone and Soft tissue: Moderate levoscoliosis of the lumbar spine ispresent. IMPRESSION: 1. Mild cardiomegaly is noted. Dictated by Abdulaziz Liz MD @ May 07 2024 11:02PM (Electronically Signed) [email or web address] Sarita Ndiaye MD GENERAL IMAGING * XR foot RIGHT 3 views TODAY (05/07/2024 5:29 PM CDT) Anatomical Region Laterality Modality FEET, FOOT R Digital Radiogra phy 05/08/2024 1:17 AM CDT Narrative 05/08/2024 1:17 AM CDT For Patients: ??As a result of the Cures Act, medical imaging exams and procedure reports are released immediately into your electronic medical record. ??You may view this report before your referring provider. ??If you have questions, please contact your health care provider. INDICATION: Foot wound. TECHNIQUE: Right foot 3 weight-bearing views. COMPARISON: None. FINDINGS/IMPRESSION: Medial soft tissue wound. No cortical erosions to suggest radiographic evidence of osteomyelitis. No sign of acute fracture. Severe midfoot arthrosis. Severe 1st and 2nd MCP joint degenerative changes. Decreased bone mineralization. Dense atherosclerotic calcifications. Dictated by Lauri Vieyra MD @ May 08 2024 ??1:17AM (Electronically Signed) [email or web address] Procedure Note Lauri Vieyra MD - 05/08/2024 For Patients: As a result of the Cures Act, medical imagingexams and procedure reports are released immediately into your electronicmedical record. You may view this report before your referring provider.If you have questions, please contact your health care provider. INDICATION: Foot wound. TECHNIQUE: Right foot 3 weight-bearing views. COMPARISON: None. FINDINGS/IMPRESSION: Medial soft tissue wound. No cortical erosions to suggest radiographicevidence of osteomyelitis. No sign of acute fracture. Severe midfootarthrosis. Severe 1st and 2nd MCP joint degenerative changes. Decreasedbone mineralization. Dense atherosclerotic calcifications. Dictated by Lauri Vieyra MD @ May 08 2024 1:17AM (Electronically Signed) [email or web address] Porsha Baldwin DO GENERAL IMAGING * MRSA/SA PCR (05/07/2024 5:03 PM CDT) MRSA DNA PCR Negative Negative 05/07/2024 7:28 PM CDT [facility] NTRAL LABORATORY STAPHYLOCOCCUS AUREUS PCR Negative Negative 05/07/2024 7:28 PM CDT [facility] NTRSD LABORATORY Other SPECIMEN FROM INTERNAL NOSE / Unknown Non-Blood / Unknown 05/07/2024 5:03 PM CDT 05/07/2024 5:15 PM CDT Narrative [facility] - 05/07/2024 7:28 PM CDT Test result does not preclude MRSA or SA nasal colonization. Porsha Baldwin DO MICROBIOLOGY [facility] [address] [place] [address], * UA W/ SEDIMENT EXAM REFLEXED PER CRITERIA (05/07/2024 5:03 PM CDT) COLOR Yellow Yellow Color 05/07/2024 5:22 PM CDT [facility] TRAL LABORAT[facility] CLARITY Clear Clear Clarity 05/07/2024 5:22 PM CDT [facility] SPECIFIC GRAVITY,URINE 1.010 1.010, 1.015, 1.020, 1.025 05/07/2024 5:22 PM CDT [facility] PH,URINE 6.5 6.0, 7.0, 8.0, 5.5, 6.5, 7.5, 8.5 05/07/2024 5:22 PM CDT [facility] UROBILINOGEN, QUALITATIVE Normal Normal EU/dl 05/07/2024 5:22 PM CDT [facility] PROTEIN, URINE Negative Negative mg/dL 05/07/2024 5:22 PM CDT [facility] GLUCOSE, URINE Negative Negative mg/dL 05/07/2024 5:22 PM CDT [facility] KETONES,URINE Negative Negative mg/dL 05/07/2024 5:22 PM CDT [facility] BILIRUBIN,URI NE Negative Negative 05/07/2024 5:22 PM CDT [facility] OCCULT BLOOD,URINE Negative Negative 05/07/2024 5:22 PM CDT [facility] NITRITE Negative Negative 05/07/2024 5:22 PM CDT [facility] LEUKOCYTE ESTERASE Negative Negative 05/07/2024 5:22 PM CDT [facility] Urine URINE SPECIMEN / Unknown Non-Blood / Unknown 05/07/2024 5:03 PM CDT 05/07/2024 5:16 PM CDT Sarita Ndiaye MD URINE Performing Organization Address [facility] Co de Phone Number [facility] [address] [place] [address], [place] * SEDIMENTATION RATE (05/07/2024 4:50 PM CDT) SEDIMENTATION RATE 27 <30 mm/hr 2023 5:16 PM CDT [facility] Blood BLOOD SPECIMEN / Unknown Butterfly / Unknown 05/07/2024 4:50 PM CDT 05/07/2024 4:58 PM CDT Porsha Baldwin DO HEMATOLOGY Performing Organization Address [facility] Co de Phone Number [facility] [address] [place] [address], [place] * EXTRA TUBE GOLD/SST (05/07/2024 12:50 PM CDT) Blood BLOOD SPECIMEN / Unknown Extra Tube / Unknown 05/07/2024 12:50 PM CDT 05/07/2024 1:08 PM CDT Sarita Ndiaye MD LABORATORY Performing Organization Address [facility]/ZIP Co de Phone Number [facility] [address] [place] [address], [place] * (ABNORMAL) DIFFERENTIAL (05/07/2024 12:50 PM CDT) % NEUT 75.2 % 05/07/2024 1:53 PM CDT [facility] % LYMPH 17.6 % 05/07/2024 1:53 PM CDT [facility] % MONO 5.5 % 05/07/2024 1:53 PM CDT [facility] % EOS 0.1 % 05/07/2024 1:53 PM CDT [facility] % BASO 0.2 % 05/07/2024 1:53 PM CDT [facility] % IMMATURE GRAN (METAS,MYELOS,MO OS) 1.4 % 05/07/2024 1:53 PM CDT [facility] ABSOLUTE NEUTROPHILS 14.0(H) 1.7 - 7.0 thou/cu mm 05/07/2024 1:53 PM CDT [facility] ABSOLUTE LYMPHOCYTES 3.3(H) 0.9 - 2.9 thou/cu mm 05/07/2024 1:53 PM CDT [facility] ABSOLUTE MONOCYTES 1.0(H) <0.9 thou/cu mm 05/07/2024 1:53 PM CDT [facility] ABSOLUTE EOSINOPHILS 0.0 <0.5 thou/cu mm 05/07/2024 1:53 PM CDT [facility] ABSOLUTE BASOPHILS 0.0 <0.3 thou/cu mm 05/07/2024 1:53 PM CDT [facility] ABSOLUTE IMMATURE GRANULOCYTES(MET ,MYELOS,PROS) 0.3(H) <0.3 thou/cu mm 05/07/2024 1:53 PM CDT [facility] Blood BLOOD SPECIMEN / Unknown Non-Lab Venipuncture / Unknown 05/07/2024 12:50 PM CDT 05/07/2024 1:04 PM CDT Narrative [facility] - 05/07/2024 1:53 PM CDT WBC MUST ALSO BE ORDERED, [id number] Sarita Ndiaye MD HEMATOLOGY [facility] [address] * SCAN-CARDIAC STRIP (05/07/2024 12:00 AM CDT) Narrative 05/07/2024 12:00 AM CDT Ordered by an unspecified provider. Other Clinical Staff OTHER * SCAN-LABORATORY REPORT (05/02/2024 12:00 AM CDT) Only the most recent of2 resultswithin the time period is included. Scanner OTHER * ECHO RAMEZ WO CONTRAST W COLOR W LTD DOPPLER (03/25/2024 1:02 PM CDT) Anatomical Region Laterality Modality Ultrasound 03/25/2024 11:2 3 AM CDT Narrative 03/25/2024 1:11 PM CDT TRANSESOPHAGEAL ECHOCARDIOGRAM ABIMBOLA SAMUELS ? Accession#: ?? [id number] : ?1940 84 years Study Date: ?? 03/25/2024 11:23:16 AM Gender: F ?BP: ? 152/81 mmHg Height: 163.00 cm ?BSA: ?1.69 m? ? ? Weight: 64.00 kg ? Tech: ? MBL ? Referring MD: MORIAH ZAPATA Site: ? [facility] Reading Location: ANW OP Patient Location: [...] . This study was interpreted by an [facility] accredited facility. ??Final ?? Procedure Note Robert Dumont MD - 03/25/2024 TRANSESOPHAGEAL ECHOCARDIOGRAM ABIMBOLA SAMUELS : 1940 84 years Study Date: 03/25/2024 11:23:16 AM Gender: F BP: 152/81 mmHg Height: 163.00 cm BSA: 1.69 m? ? ? Weight: 64.00 kg Tech: ALIX Referring MD: MORIAH ZAPATA Site: [facility] Reading Location: ANW OP Patient Location: [...] . This study was interpreted by an [facility] accredited facility. Final Moriah SHORT ECHO ORD * TSH (03/25/2024 11:10 AM CDT) TSH 0.35 0.27 - 4.20 uIU/mL 03/25/2024 2:07 PM CDT [facility] Blood BLOOD SPECIMEN / Unknown Venipuncture / Unknown 03/25/2024 11:10 AM CDT 03/25/2024 11:21 AM CDT Narrative [facility] - 03/25/2024 2:07 PM CDT In Adults, TSH values between 5.00 and 10.00 uIU/ml do not necessarily indicate the presence of Hypothyroidism. Correlation with clinical findings such as presence of goiter and/or Thyroperoxidase (TPO) Antibody may be helpful. For more information please refer to SHABANA 2004; 291: 228-238. Alma Burton NP CHEMISTRY Performing Organization Address [facility]/ZIP Co de Phone Number [facility] [address] [address], [place] * ALT (SGPT) (03/25/2024 11:10 AM CDT) ALT (SGPT) 21 10 - 35 IU/L 03/25/2024 2:08 PM CDT [facility] Blood BLOOD SPECIMEN / Unknown Venipuncture / Unknown 03/25/2024 11:10 AM CDT 03/25/2024 11:21 AM CDT Alma Burton NP CHEMISTRY Performing Organization Address [facility]/ZIP Co de Phone Number [facility] [address] [place] [address], [place] * AST (SGOT) (03/25/2024 11:10 AM CDT) AST (SGOT) 32 10 - 35 IU/L 03/25/2024 2:07 PM CDT [facility] Blood BLOOD SPECIMEN / Unknown Venipuncture / Unknown 03/25/2024 11:10 AM CDT 03/25/2024 11:21 AM CDT Alma Burton NP CHEMISTRY [facility] [address] [place] [address], [place] * SCAN-CARDIAC STRIP (03/25/2024 12:00 AM CDT) Narrative 03/25/2024 12:00 AM CDT Ordered by an unspecified provider. 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
== END 2024-06-04 11:16 | disposition home or self-care (01) ==
LOC: NFLDREF 06-05 11:35
PROVIDERS: PCP Family Medicine; Referring Provider Family Medicine; Visit Provider Family Medicine
DX: I48.20 Chronic atrial fibrillation, unspecified (principal); Z79.01 Long term (current) use of anticoagulants
CPT/HCPCS: 85610

== ENCOUNTER 2024-06-06 09:00 | Outpatient (CLI) | payer MEDICARE, OTHER, SELFPAY ==
--- OUTSIDE RECORDS SUMMARY | 2024-06-08 17:24 | XMS_ITS | Encounter Summary ---
Author Organization [employer] Address [address], [place] [address] Care Team Providers Care Order Builder Name Role Phone Clinician, Not Found MD Primary Care Provider Un available Reason for Visit * Reason Comments Medication Questions Encounter Details Date Type Department Care Team (Late st Contact Info) Description 03/27/2024 Telephone Rheumatology at [address] [place], [place] [id number] Denise Davila MD [address] [place] [phone] Medication Questions Social History Tobacco Use Types [...] to report that she was seen in [facility] on 03/25/24 for RAMEZ and cardioversion. Pt states after this visit, she was discharged with a change in her prednisone order. Pt states they the physician at [facility] ordered for her to take 2 mg [...] st Contact Info) Description 06/24/2024 12:00 PM CLINICAL OUTCOMES MANAGER Appointment [facility] [address] [place] [address] Denise Davila MD [address] [place], [place] [phone] 08/19/2024 10:30 AM CLINICAL OUTCOMES MANAGER Appointment Rheumatology at [facility] [address] [address] [address] [place] [address] Denise Davila MD [address] [place] [address] documented as of this encounter Visit Diagnoses Not on filedocumented in this encounter Care Teams Order Builder Relationship Specialty Start Date End Date Clinician, Not Found, [place] [address] PCP - General 03/01/18 documented as of this encounter
--- OUTSIDE RECORDS SUMMARY | 2024-06-08 17:24 | XMS_ITS | Encounter Summary ---
Author Organization [employer] Address [address], [place] [address] Care Team Providers Care Nut Roaster Name Role Phone Clinician, Not Found MD Primary Care Provider Un available Reason for Visit * Reason Comments FYI Encounter Details Date Type Department Care Team (Late st Contact Info) Description 02/29/2024 Telephone Rheumatology at [address] 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 Appointment [facility] [address] [place] [address] [place] [address] [place] [phone] 08/19/2024 10:30 AM ELECTROMECHANICAL ASSEMBLER Appointment Rheumatology at [facility] [address] [address] [address] [place] [address] Denise Davila MD [address] [place] [address] documented as of this encounter Visit Diagnoses Not on filedocumented in this encounter Care Teams Nut Roaster Relationship Specialty Start Date End Date Clinician, Not Found, [place] [address] PCP - General 03/01/18 documented as of this encounter
--- OUTSIDE RECORDS SUMMARY | 2024-06-08 17:24 | XMS_ITS | Clinical Summary ---
Author Organization [facility] Address [place], [place] [address] Care Team Providers Care Woodyard Operator Name Role Phone Tamera Newton MD Primary Care Provider + Allergies Active Allergy Reactions Criticality Noted Date Comments Propoxyphene Other - Describe In Comment Field Medium 10/21/1999 Lethargy Sulindac Hives High 06/03/2003 Medications Medication Sig Dispensed Refills Start Date End Date Status omeprazole (PRILOSEC) 20 mg Delayed-Release capsule Take 1 capsule by mouth once daily before a meal. 0 01/19/2015 Active atorvastatin (LIPITOR) 40 mg tablet Take 40 mg by mouth at bedtime. 0 11/13/2018 Active levothyroxine (SYNTHROID) 75 mcg tablet Take 1 Tablet by mouth before breakfast. 10/04/2021 Active allopurinoL (ZYLOPRIM) 100 mg tablet Take 200 mg by mouth once daily. Active furosemide (LASIX) 20 mg tabletIndications: Acute systolic congestive heart failure (HC) Take 1 Tablet (20 mg) by mouth once daily in the morning. Take an additional 1 tablet for weight gain of 3 lbs in 24 hours, or 5 lbs in 1 week 30 Tablet 1 01/28/2024 Active spironolactone (ALDACTONE) 25 mg tabletIndications: Acute systolic congestive heart failure (HC) Take 0.5 Tablets (12.5 mg) by mouth once daily in the morning. 30 Tablet 1 01/28/2024 Active warfarin (COUMADIN) 5 mg tabletIndications: Left atrial thrombus Take 0.5 Tablets (2.5 mg) by mouth once daily. Until directed by anticoagulation clinic. 03/25/2024 Active Additional Information Patient taking differently: (No dose reported), (No route reported), (No frequency reported), 2.5 mg daily except SKIP dose on Tuesdays, Fridays, Reported on 05/07/2024 metoprolol succinate (TOPROL XL) 25 mg Sustained-Release tabletIndications: Persistent atrial fibrillation (HC),Cardiomyopath y, unspecified type (HC) Take 1 Tablet (25 mg) by mouth two times daily. 60 Tablet 2 03/25/2024 Active amiodarone (CORDARONE) 200 mg tabletIndications: Persistent atrial fibrillation (HC) Take 2 Tablets (400 mg) by mouth two times daily. 03/31/2024: Reduce to 1 tablet (200 mg) by mouth twice daily. 04/14/2024: Reduce to 1 tablet (200 mg) by mouth once daily. 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 Take 2 mg today (05/16) then 1 mg on Sunday (05/17), and 1 mg on Sunday (05/18). Recheck INR on Sunday (05/19). 4 Tablet 05/16/2024 Active amoxicillin-clavul anate (AUGMENTIN) 500-125 mg tabletIndications: skin and skin structure infection Take 1 Tablet by mouth two times daily with meals for 4 days. 8 Tablet 05/16/2024 Active Problems Problem Noted Date Diagnosed Date [...] branch block 02/22/2005 Overview (05/07/2024): LW Onset: Hypertension Hypothyroidism Hypercholesteremia HLD (hyperlipidemia) Neuropathy Rheumatoid arthritis RLS (restless legs syndrome) Encounters Date Type Department Care Team Description 06/04/2024 2:00 PM CDT Office Visit [facility] [address] [place] [address] Toney Winchester, DPMary Ann Post-op (Right foot, DOS 05/12/24-Poon RIKI, 3 week post op) 06/04/2024 Travel 05/12/2024 12:41 PM CDT Anesthesia Event [facility] [address] [place] [id number] Maegan Reyes, PROJECT MANAGEMENT INSTRUCTOR 05/12/2024 12:30 PM CDT - 05/12/2024 2:37 PM CDT Surgery [facility] [address] [place] [address] Ervin Davis, DPM INCISION DRAINAGE RIGHT FOOT 05/07/2024 11:01 AM CDT - 05/16/2024 2:45 PM CDT Hospital Encounter [facility] [address] [place] [address] Sarita Ndiaye MD Melby, MD Florencio Trevino, MD David Schafer, DO Juan Phelps Abdurahman Ibrahim, CARROLL [facility], [facility] Hospitalists Of 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) (Primary Dx); Acute osteomyelitis of right foot (HC) Discharge Disposition: Home Self Care 05/07/2024 10:26 AM CDT Anesthesia Event [facility] [address] [place] [address] Tana Ward MD Brown, Stephen Edmund Kaitlynn, PROJECT MANAGEMENT INSTRUCTOR 05/07/2024 Travel 05/02/2024 Orders Only [facility] Scanner 1 scan: (1-Ord) [facility], INR, 05/02/2024 05/02/2024 Orders Only [facility] Scanner 1 scan: (1-Ord) [place] [place], INR, 05/02/2024 05/02/2024 Telephone [facility] [address] [phone] Ines Kee RN Anticoagulation 04/23/2024 Telephone [facility] [address] [phone] Vaishnavi Brownlee, RN 04/23/2024 Orders Only [facility] [address] [phone] Sarita Ndiaye MD <No scans attached> 04/11/2024 Telephone [facility] [address] [phone] Nasim Fonseca MD Symptom Update 03/25/2024 12:40 PM CDT Anesthesia Event [facility] [address] [place] [address] Shell Velasco MD Wilson Paul Pierreic, PROJECT MANAGEMENT INSTRUCTOR 03/25/2024 10:28 AM CDT - 03/25/2024 2:35 PM CDT Hospital Encounter [facility] [address] [place] [address] Moriah Zapata PA Anderson, Rebecca Faye, MD Persistent atrial fibrillation (HC) (Primary Dx); Left atrial thrombus; 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); Cardiomyopathy, unspecified type (HC) Discharge Disposition: Home Self Care 03/25/2024 Travel 03/17/2024 Telephone [facility] [address] [phone] Cardiology, Anw Cardiology Appointment from Last 3 [...] st Contact Info) Description 06/17/2024 2:15 PM YARD JOCKEY Office Visit [facility] [address] [place] [address] Toney Winchester DPM [address] [place] [address] Health Maintenance Due Date Last Done Comments [...] 09/24/2019, 03/26/2009 Medical Devices Implanted Type Area Digital Computer Operator Device Identifier Shelf Expiration Date Model / Serial / Lot Simplex P Bone Cement - Half Dose Implanted:Qty: 2 on 10/18/2021 by Kevin Hogue MD at [facility] Left: Knee [employer] 07/12/2023 / [id number] / [id number] Triathlon Femoral Posterior Augment Implanted:Qty: 1 on 10/18/2021 by Kevin Hogue MD at [facility] Left: Knee [employer] 06/01/2025 / [id number]-A-[id number] / [id number] Simplex P Bone Cement Full Dose Implanted:Qty: 2 on 10/18/2021 by Kevin Hogue MD at [facility] Left: Knee [employer] 09/12/2023 / [id number] / [id number] Triathlon Fluted Stem - Tibia Implanted:Qty: 1 on 10/18/2021 by Kevin Hogue MD at [facility] Left: Knee [employer] 10/09/2025 / [id number] / [id number] Triathlon Tritanium Tibial Symmetric Cone Augment Implanted:Qty: 1 on 10/18/2021 by Kevin Hogue MD at [facility] Left: Knee [employer] 05/04/2026 / [id number] / [id number] Triathlon Total Knee [place] Tibial Baseplate Implanted:Qty: 1 on 10/18/2021 by Kevin Hogue MD at [facility] Left: Knee [employer] 12/19/2025 / [id number] / [id number] Triathlon Fluted Stem - Femur Implanted:Qty: 1 on 10/18/2021 by Kevin Hogue MD at [facility] Left: Knee [employer] 06/15/2025 / [id number] / [id number] Triathlon Total Stabilizer Femoral Component Implanted:Qty: 1 on 10/18/2021 by Kevin Hogue MD at [facility] Left: Knee [employer] 01/16/2026 / [id number] / [id number] Triathlon X3 Total Stablizer+ Tibial Insert Implanted:Qty: 1 on 10/18/2021 by Kevin Hogue MD at [facility] Left: Knee [employer] 08/31/2026 / [id number] -[id number] / [id number] Triathlon Femoral Posterior Augment Implanted:Qty: 1 on 10/18/2021 by Kevin Hogue MD at [facility] Left: Knee [employer] 09/05/2025 / [id number] [...] 05/09/2024 2:18 PM CDT BASIC METABOLIC PANEL CLAIRSA 05/09/2024 11:15 AM CDT ANAEROBIC CULTURE Today [...] 11.0 thou/cu mm 05/16/2024 8:07 AM CDT [facility] NRBC 0.0 % 05/16/2024 8:07 AM CDT [facility] ABS NRBC 0.0 thou /cu mm 05/16/2024 8:07 AM CDT [facility] Blood BLOOD SPECIMEN / Unknown Butterfly / Unknown 05/16/2024 7:28 AM CDT 05/16/2024 7:50 AM CDT [facility] Performing Organization Address City/[facility]/ZIP Co de Phone Number [facility] [address] [place] [address], [place] * (ABNORMAL) HEMOGLOBIN (05/16/2024 7:28 AM CDT) Only the most recent of2 resultswithin the time period is included. HEMOGLOBIN 12.6 12.0 - 16.0 g/dL 05/16/2024 8:07 AM CDT [facility] MCV 101(H) 80 - 100 fL 05/16/2024 8:07 AM CDT [facility] Blood BLOOD SPECIMEN / Unknown Butterfly / Unknown 05/16/2024 7:28 AM CDT 05/16/2024 7:50 AM CDT Nikolai Duboiskiera David HEMATOLOGY [facility] [address] [place] [address], [place] * SODIUM (05/16/2024 7:28 AM CDT) SODIUM 140 136 - 145 mmol/L 05/16/2024 8:28 AM CDT [facility] Blood BLOOD SPECIMEN / Unknown Butterfly / Unknown 05/16/2024 7:28 AM CDT 05/16/2024 7:50 AM CDT Nikolai Hernandez DO CHEMISTRY Performing Organization Address [facility] de Phone Number [facility] [address] [place] [address], * POTASSIUM (05/16/2024 7:28 AM CDT) Only the most recent of2 resultswithin the time period is included. POTASSIUM 4.3 3.5 - 5.1 mmol/L 05/16/2024 8:28 AM CDT [facility] Blood BLOOD SPECIMEN / Unknown Butterfly / Unknown 05/16/2024 7:28 AM CDT 05/16/2024 7:50 AM CDT Nikolai Hernandez DO CHEMISTRY Performing Organization Address [facility] Phone Number [facility] [address] [place] [address], * (ABNORMAL) CREATININE (05/16/2024 7:28 AM CDT) Only the most recent of4 resultswithin the time period is included. eGFR 31(L) >90 mL/min/1.7 3m2 05/16/2024 8:28 AM CDT [facility] Comment:As of 2021, eG FR is calculated by the CKD-EPI creatinine equation without race adjustment. ??eGFR can be influenced by muscle mass, exercise, and diet. ??The reported eGFR is an estimation only and is only applicable if the renal function is stable. CREATININE 1.64(H) 0.50 - 0.90 mg/dL 05/16/2024 8:28 AM CDT [facility] Blood BLOOD SPECIMEN / Unknown Butterfly / Unknown 05/16/2024 7:28 AM CDT 05/16/2024 7:50 AM CDT Nikolai Hernandez DO CHEMISTRY Performing Organization Address [facility]/ZIP Co de Phone Number [facility] [address] [address], * (ABNORMAL) PROTIME-INR (05/16/2024 7:28 AM CDT) Only the most recent of11 resultswithin the time period is included. INR 2.5(H) <1.3 05/16/2024 8:09 AM CDT [facility] PROTIME 27.2(H) 10.3 - 12.3 sec 05/16/2024 8:09 AM CDT [facility] Blood BLOOD SPECIMEN / Unknown Butterfly / Unknown 05/16/2024 7:28 AM CDT 05/16/2024 7:50 AM CDT Narrative [facility] - 05/16/2024 8:09 AM CDT ?Therapeutic Range [...] is on UFH. Sarita Ndiaye MD HEMATOLOGY [facility] [address] [address], * SCAN-CARDIAC STRIP (05/15/2024 8:48 PM CDT) Scanner OTHER * SCAN-CARDIAC STRIP (05/15/2024 7:30 AM CDT) Scanner OTHER * SCAN-CARDIAC STRIP (05/15/2024 12:35 AM CDT) Scanner OTHER * SCAN-CARDIAC STRIP (05/14/2024 3:06 PM CDT) Scanner OTHER * SCAN-CARDIAC STRIP (05/14/2024 7:43 AM CDT) Scanner OTHER * (ABNORMAL) PLATELET COUNT (05/14/2024 6:04 AM CDT) PLATELET COUNT 131(L) 140 - 440 thou/cu mm 05/14/2024 6:39 AM CDT [facility] MPV 13.0(H) 6.5 - 11.0 fL 05/14/2024 6:39 AM CDT [facility] Blood BLOOD SPECIMEN / Unknown Butterfly / Unknown 05/14/2024 6:04 AM CDT 05/14/2024 6:29 AM CDT Nikolai Hernandez DO HEMATOLOGY Performing Organization Address [facility] Co de Phone Number [facility] [address] [place] [address], * ELECTROLYTE PANEL (05/14/2024 6:04 AM CDT) SODIUM 138 136 - 145 mmol/L 05/14/2024 6:55 AM CDT [facility] POTASSIUM 4.2 3.5 - 5.1 mmol/L 05/14/2024 6:55 AM CDT [facility] CHLORIDE 104 98 - 107 mmol/L 05/14/2024 6:55 AM CDT [facility] CO2,TOTAL 22 22 - 29 mmol/L 05/14/2024 6:55 AM CDT [facility] ANION GAP 12 5 - 18 05/14/2024 6:55 AM CDT [facility] Blood BLOOD SPECIMEN / Unknown Butterfly / Unknown 05/14/2024 6:04 AM CDT 05/14/2024 6:29 AM CDT Nikolai Hernandez DO CHEMISTRY Performing Organization Address [facility]/ZIP Co de Phone Number [facility] [address] [place] [address], * SCAN-CARDIAC STRIP (05/13/2024 9:25 AM CDT) [...] @ May 12 2024 ??2:50PM (Electronically Signed) [email or web address] Procedure Note Ender Martinez MD - 05/12/2024 [...] @ May 12 2024 2:50PM (Electronically Signed) [email or web address] Ervin [place] DPM GENERAL IMAG ING * (ABNORMAL) TISSUE CULTURE, STAIN (AEROBIC) (05/12/2024 1:28 PM CDT) CULTURE RESULT(A) 05/16/2024 11:58 AM CDT [facility] CULTURE 1+ Staphylococcus coagulase negative 05/16/2024 11:58 AM CDT [facility] GRAM STAIN No PMNs 05/16/2024 11:58 AM CDT [facility] GRAM STAIN No RBCs 05/16/2024 11:58 AM CDT [facility] GRAM STAIN No Epithelial cells 05/16/2024 11:58 AM CDT [facility] GRAM STAIN No organisms seen 024 11:58 AM CDT [facility] Bone (Right foot) Non-Blood / Unknown 05/12/2024 1:28 PM CDT 05/12/2024 2:10 PM CDT Narrative Organism Antibiotic Method Susceptibility Staphylococcus coagulase negative OXACILLIN >=4: R Staphylococcus coagulase negative CLINDAMYCIN 0.25: S Staphylococcus coagulase negative DOXYCYCLINE 2: S Staphylococcus coagulase negative CEFAZOLIN R Staphylococcus coagulase negative VANCOMYCIN 1: S Staphylococcus coagulase negative TRIMETHOPRIM/SULF <=0.5/9.5: S Ervin [place] DPM [facility]CROBIOLOGY [facility] [address] [place] [address], * PATH TISSUE EXAM (05/12/2024 1:28 PM CDT) Only the most recent of2 resultswithin the time period is included. Case Report Pathology Report ?Case: [id number] ? Authorizing Provider: ??Oeltjenbruns, Ervin Roosevelt, ??Collected: ? 05/12/2024 1328 ? DPM ? Ordering Location: ? [facility] ?Received: ?05/12/2024 1356 ? Hospital ? Pathologist: ? Tammie Wilkins MD ? Specimens: ?? A) - Right foot, Bone second metatarsal right ? B) - Right foot, Bone second proximal phalynx right ? 05/15/2024 4:01 PM CDT [facility] EN[facility]AL LAB[facility]ATORY Final Diagnosis A) RIGHT [...] negative for acute inflammation 05/15/2024 4:01 PM [facility] [employer] [facility]- ENTRAL [facility]ORAT[facility] Clinical Information Right foot osteomyelitis. [...] wound ellipsed and close 05/15/2024 4:01 PM T [facility] [employer] [facility]- [facility]AL LAB[facility]ORY Gross Description A) Received fresh [...] en face following decalcification in 1 cassette. LizzyKT 05/12/2024 05/15/2024 4:01 PM T [facility] [employer] [facility]-C ENTRAL LABORATORY Microscopic Description The final diagnosis is based on microscopic examination of appropriate sections of all specimens. 05/15/2024 4:01 PM [facility] [employer] LABORATORY-C ENTRAL LABORATORY Additional Information Interpreted at [facility], Central Laboratory - [address], [place] [address] 05/15/2024 4:01 PM CDT [facility] EN[facility]AL [facility] Bone (Right foot) 05/12/2024 1:28 PM CDT 05/12/2024 1:56 PM CDT Specimen from bone (specimen) (Right foot) 05/12/2024 1:30 PM CDT 05/12/2024 1:56 PM CDT Ervin [place] DPM PATHOLOGY/CY TOLOGY Performing Organization Address [facility] Co de Phone Number [facility] [address] * ANAEROBIC CULTURE (05/12/2024 1:28 PM CDT) Only the most recent of2 resultswithin the time period is included. CULTURE No anaerobes isolated 05/19/2024 1:27 PM CDT [facility] Bone (Right foot) Non-Blood / Unknown 05/12/2024 1:28 PM CDT 05/12/2024 2:10 PM CDT Ervin [place] DPM MICROBIOLOGY Performing Organization Address [facility] Co de Phone Number [facility] [address] [place] [address], * SCAN-CARDIAC STRIP (05/12/2024 9:52 AM CDT) [...] None. FINDINGS: Right Brachial: 154 mmHg Right ALUMNI COORDINATOR: Greater than 254 mmHg (KELVIN NC) Right DPA: Unable to obtain Left Brachial: 169 mmHg Left ALUMNI COORDINATOR: Unable to obtain Left DPA: Greater than [...] None. FINDINGS: Right Brachial: 154 mmHg Right ALUMNI COORDINATOR: Greater than 254 mmHg (KELVIN NC) Right DPA: Unable to obtain Left Brachial: 169 mmHg Left ALUMNI COORDINATOR: Unable to obtain Left DPA: Greater than 254 mmHg (KELVIN NC) KELVIN: 1.0-1.4 - normal 0.9-0.99 - borderline 0.80-0.89 - mild 0.50-0.79 - moderate 0.30-0.49 - severe < 0.30 - critical IMPRESSION: Right: Unable to obtain KELVIN. Left: Unable to obtain KELVIN. Dictated by Ender Martinez MD @ 05/14/2024 6:32:36 AM (Electronically Signed) Erlinda Osorio DRYWALL METAL STUD WORKER US * SCAN-CARDIAC STRIP (05/10/2024 3:32 AM [...] in both lower extremities. Right leg arteries: PUMP TECHNICIAN: 112 cm/sec, triphasic. PFA: 45 cm/sec, triphasic. SFA: 80 cm/sec, triphasic. Pop: 74 cm/sec, triphasic. ALUMNI COORDINATOR: 0 cm/sec,. CRAIG: 24 cm/sec, triphasic. DPA: 14 cm/sec, triphasic. Left leg arteries: PUMP TECHNICIAN: 78 cm/sec, triphasic. PFA: 59 cm/sec, triphasic. SFA: 81 cm/sec, triphasic. Pop: 40 cm/sec, triphasic. ALUMNI COORDINATOR: 0 cm/sec,. CRAIG: 42 cm/sec, triphasic. DPA: [...] plaque in both lowerextremities. Right leg arteries: PUMP TECHNICIAN: 112 cm/sec, triphasic. PFA: 45 cm/sec, triphasic. SFA: 80 cm/sec, triphasic. Pop: 74 cm/sec, triphasic. ALUMNI COORDINATOR: 0 cm/sec,. CRAIG: 24 cm/sec, triphasic. DPA: 14 cm/sec, triphasic. Left leg arteries: PUMP TECHNICIAN: 78 cm/sec, triphasic. PFA: 59 cm/sec, triphasic. SFA: 81 cm/sec, triphasic. Pop: 40 cm/sec, triphasic. ALUMNI COORDINATOR: 0 cm/sec,. CRAIG: 42 cm/sec, triphasic. DPA: 44 cm/sec, triphasic. IMPRESSION: Blood flow was not visualized in the bilateral posterior tibial arteries.Remainder of the bilateral lower extremity arteries are patent. Blood flowis demonstrated in the foot. No critical stenoses. Dictated by Ender Martinez MD @ 05/09/2024 7:18:50 PM (Electronically Signed) Rasta Anne NP * (ABNORMAL) BASIC METABOLIC PANEL (05/09/2024 11:15 AM CDT) Only the most recent of2 resultswithin the time period is included. SODIUM 138 136 - 145 mmol/L 05/09/2024 12:06 PM CDT [facility] POTASSIUM 4.8 3.5 - 5.1 mmol/L 05/09/2024 12:06 PM [facility] CHLORIDE 99 98 - 107 mmol/L 05/09/2024 12:06 PM [facility] CO2,TOTAL 22 22 - 29 mmol/L 05/09/2024 12:06 PM [facility] ANION GAP 17 5 - 18 05/09/2024 12:06 PM [facility] GLUCOSE 127(H) 70 - 99 mg/dL 05/09/2024 12:06 PM [facility] CALCIUM 9.8 8.8 - 10.2 mg/dL 05/09/2024 12:06 PM [facility] BUN 52(H) 8 - 23 mg/dL 05/09/2024 12:06 PM [facility] CREATININE 1.87(H) 0.50 - 0.90 mg/dL 05/09/2024 12:06 PM [facility] BUN/CREAT RATIO 28(H) 10 - 20 12:06 PM [facility] eGFR 26(L) >90 mL/min/1.7 3m2 05/09/2024 12:06 PM [facility] Comment:As of 2021, eG FR is calculated by the CKD-EPI creatinine equation without race adjustment. ??eGFR can be influenced by muscle mass, exercise, and diet. ??The reported eGFR is an estimation only and is only applicable if the renal function is stable. Blood BLOOD SPECIMEN / Unknown Venipuncture / Unknown 05/09/2024 11:15 AM CDT 05/09/2024 11:28 AM T Porsha Baldwin DO CHEMISTRY [facility] [address] [place] [address], [place] * (ABNORMAL) AEROBIC BACTERIAL CULTURE, STAIN (05/09/2024 9:32 AM CDT) CULTURE RESULT(A) 05/14/2024 7:36 AM CDT [facility] CULTURE 1+ Enterococcus faecalis 05/14/2024 7:36 AM CDT [facility] CULTURE 1+ Mixed eveline present 05/14/2024 7:36 AM CDT [facility] CULTURE 1+ Achromobacter xylosoxidans 05/14/2024 7:36 AM CDT [facility] GRAM STAIN 2+ PMNs 05/14/2024 7:36 AM CDT [facility] GRAM STAIN 4+ RBCs 05/14/2024 7:36 AM CDT [facility] GRAM STAIN No Epithelial cells 05/14/2024 7:36 AM CDT [facility] GRAM STAIN No organisms seen 024 7:36 AM CDT [facility] Other (Other) Non-Blood / Unknown 05/09/2024 9:32 AM CDT 05/09/2024 9:57 AM CDT Narrative [facility] - 05/14/2024 7:36 AM CDT Mixed Eveline; No Staphylococcus aureus, beta-Strep, Strep. pneumoniae, or Pseudomonas aeruginosa Organism Antibiotic Method Susceptibility Enterococcus faecalis VANCOMYCIN 2: S Enterococcus faecalis AMPICILLIN <=2: S Achromobacter xylosoxidans TRIMETHOPRIM/SULF <=1/19: S Achromobacter xylosoxidans LEVOFLOXACIN 2: S Achromobacter xylosoxidans PIPERACILLIN/TAZO <=4: S Achromobacter xylosoxidans MEROPENEM <=0.25: S Rasta Anne NP MICROBIOLOGY [facility] [address] [place] [address], * SCAN-CARDIAC STRIP (05/09/2024 7:40 AM CDT) [...] NOW QTc 523 ms BEYOND NOW P Armstrong -12 degrees BEYOND NOW R Armstrong 42 degrees BEYOND NOW T Armstrong 4 degrees BEYOND NOW 05/08/2024 10:2 9 PM CDT 05/09/2024 2:23 PM CDT Sarita Ndiaye MD EKG ORD BEYOND NOW [place], [place] * SCAN-CARDIAC STRIP (05/08/2024 10:21 PM [...] - 11.0 thou/cu mm 05/08/2024 7:01 AM [facility] RED BLOOD COUNT 3.82(L) 4.00 - 5.20 mil/cu mm 05/08/2024 7:01 AM [facility] HEMOGLOBIN 12.5 12.0 - 16.0 g/dL 05/08/2024 7:01 AM [facility] HEMATOCRIT 39.4 33.0 - 51.0 % 05/08/2024 7:01 AM [facility] MCV 103(H) 80 - 100 fL 05/08/2024 7:01 AM [facility] MCH 32.7 26.0 - 34.0 pg 05/08/2024 7:01 AM [facility] MCHC 31.7(L) 32.0 - 36.0 g/dL 05/08/2024 7:01 AM [facility] RDW 14.9 11.5 - 15.5 % 05/08/2024 7:01 AM [facility] PLATELET COUNT 142 140 - 440 thou/cu mm 05/08/2024 7:01 AM [facility] MPV 12.5(H) 6.5 - 11.0 fL 05/08/2024 7:01 AM [facility] NRBC 0.0 % 05/08/2024 7:01 AM [facility] ABS NRBC 0.0 thou /cu mm 05/08/2024 7:01 AM [facility] Blood BLOOD SPECIMEN / Unknown Venipuncture / Unknown 05/08/2024 6:51 AM CDT 05/08/2024 6:56 AM T Porsha Baldwin DO HEMATOLOGY Performing Organization Address [facility] Co de Phone [facility] [phone] [place] [address], * VANCOMYCIN (05/08/2024 6:51 AM CDT) VANCOMYCIN 15.8 ug/mL 05/08/2024 7:47 AM CDT [facility] Comment:No Reference Range D efined. DATE OF LAST DOSE,RANDOM Not Given 05/08/2024 7:47 AM CDT [facility] TIME OF LAST DOSE,RANDOM Not Given 05/08/2024 7:47 AM CDT [facility] Blood BLOOD SPECIMEN / Unknown Venipuncture / Unknown 05/08/2024 6:51 AM CDT 05/08/2024 6:56 AM CDT Porsha Baldwin DO CHEMISTRY Performing Organization Address [facility] de Phone Number [facility] [address] [place] [address], * SCAN-CARDIAC STRIP (05/08/2024 4:50 AM CDT) Scanner OTHER * XR CHEST 2 VIEWS PA AND LATERAL (05/07/2024 5:29 PM CDT) Anatomical Region Laterality Modality CHEST, THORAX, Lung, HEART Digit al Radiography 05/07/2024 11:0 2 PM CDT Impressions 05/07/2024 11:02 PM CDT 1. Mild cardiomegaly is noted. Dictated by Abdulaziz Liz MD @ May 07 2024 11:02PM (Electronically Signed) [email or web address] Narrative 05/07/2024 11:02 PM CDT For Patients: [...] For Patients: As a result of the s Act, medical imagingexams and procedure reports are [...] @ May 07 2024 11:02PM (Electronically Signed) [email or web address] Sarita Ndiaye MD GENERAL IMAGING * XR foot RIGHT 3 views TODAY (05/07/2024 5:29 PM CDT) Anatomical Region Laterality Modality FEET, FOOT R Digital Radiogra phy 05/08/2024 1:17 AM CDT Narrative 05/08/2024 1:17 AM CDT For Patients: ??As a result of the s , medical imaging exams and procedure reports are [...] @ May 08 2024 ??1:17AM (Electronically Signed) [email or web address] Procedure Note Lauri Vieyra MD - 05/08/2024 [...] @ May 08 2024 1:17AM (Electronically Signed) [email or web address] Porsha Baldwin DO GENERAL IMAGING * MRSA/SA PCR (05/07/2024 5:03 PM CDT) MRSA DNA PCR Negative Negative 05/07/2024 7:28 PM CDT [facility] NTRAL LABORATORY STAPHYLOCOCCUS AUREUS PCR Negative Negative 05/07/2024 7:28 PM CDT [facility] NTRAL LABORATORY Other SPECIMEN FROM INTERNAL NOSE / Unknown Non-Blood / Unknown 05/07/2024 5:03 PM CDT 05/07/2024 5:15 PM CDT Narrative [facility] - 05/07/2024 7:28 PM CDT Test result does not preclude MRSA or SA nasal colonization. Porsha Baldwin DO MICROBIOLOGY [facility] [address] [place] [address], * UA W/ SEDIMENT EXAM REFLEXED PER CRITERIA (05/07/2024 5:03 PM CDT) COLOR Yellow Yellow Color 05/07/2024 5:22 PM CDT [facility] CLARITY Clear Clear Clarity 05/07/2024 5:22 PM CDT [facility] SPECIFIC GRAVITY,URINE 1.010 1.010, 1.015, 1.020, 1.025 05/07/2024 5:22 PM CDT [facility] PH,URINE 6.5 6.0, 7.0, 8.0, 5.5, 6.5, 7.5, 8.5 05/07/2024 5:22 PM CDT [facility] UROBILINOGEN, QUALITATIVE Normal Normal EU/dl 05/07/2024 5:22 PM CDT [facility] PROTEIN, URINE Negative Negative mg/dL 05/07/2024 5:22 PM CDT [facility] GLUCOSE, URINE Negative Negative mg/dL 05/07/2024 5:22 PM CDT [facility] KETONES,URINE Negative Negative mg/dL 05/07/2024 5:22 PM CDT [facility] BILIRUBIN,URI NE Negative Negative 05/07/2024 5:22 PM CDT [facility] OCCULT BLOOD,URINE Negative Negative 05/07/2024 5:22 PM CDT [facility] NITRITE Negative Negative 05/07/2024 5:22 PM CDT [facility] LEUKOCYTE ESTERASE Negative Negative 05/07/2024 5:22 PM CDT [facility] Urine URINE SPECIMEN / Unknown Non-Blood / Unknown 05/07/2024 5:03 PM CDT 05/07/2024 5:16 PM CDT Sarita Ndiaye MD URINE [facility] [address] [place] [address], * SEDIMENTATION RATE (05/07/2024 4:50 PM CDT) SEDIMENTATION RATE 27 <30 mm/hr 2023 5:16 PM CDT [facility] Blood BLOOD SPECIMEN / Unknown Butterfly / Unknown 05/07/2024 4:50 PM CDT 05/07/2024 4:58 PM CDT Porsha Baldwin DO HEMATOLOGY Performing Organization Address [facility]/ZIP Co de Phone Number [facility] [address] [place] [address], [place] * EXTRA TUBE GOLD/SST (05/07/2024 12:50 PM CDT) Blood BLOOD SPECIMEN / Unknown Extra Tube / Unknown 05/07/2024 12:50 PM CDT 05/07/2024 1:08 PM CDT Sarita Ndiaye MD LABORATORY Performing Organization Address [facility]/ZIP Co de Phone Number [facility] [address] [place] [address], [place] * (ABNORMAL) DIFFERENTIAL (05/07/2024 12:50 PM CDT) % NEUT 75.2 % 05/07/2024 1:53 PM CDT [facility]AL [facility] % LYMPH 17.6 % 05/07/2024 1:53 PM CDT [facility] % MONO 5.5 % 05/07/2024 1:53 PM CDT [facility] % EOS 0.1 % 05/07/2024 1:53 PM CDT [facility] % BASO 0.2 % 05/07/2024 1:53 PM CDT [facility] % IMMATURE GRAN (METAS,MYELOS,FL OS) 1.4 % 05/07/2024 1:53 PM CDT [facility] ABSOLUTE NEUTROPHILS 14.0(H) 1.7 - 7.0 thou/cu mm 05/07/2024 1:53 PM CDT [facility] ABSOLUTE LYMPHOCYTES 3.3(H) 0.9 - 2.9 thou/cu mm 05/07/2024 1:53 PM CDT [facility] ABSOLUTE MONOCYTES 1.0(H) <0.9 thou/cu mm 05/07/2024 1:53 PM CDT [facility] ABSOLUTE EOSINOPHILS 0.0 <0.5 thou/cu mm 05/07/2024 1:53 PM CDT [facility] ABSOLUTE BASOPHILS 0.0 <0.3 thou/cu mm 05/07/2024 1:53 PM CDT [facility] ABSOLUTE IMMATURE GRANULOCYTES(MET ,MYELOS,PROS) 0.3(H) <0.3 thou/cu mm 05/07/2024 1:53 PM CDT [facility] Blood BLOOD SPECIMEN / Unknown Non-Lab Venipuncture / Unknown 05/07/2024 12:50 PM CDT 05/07/2024 1:04 PM CDT Narrative [facility] - 05/07/2024 1:53 PM CDT WBC MUST ALSO BE ORDERED, [id number] Sarita Ndiaye MD HEMATOLOGY [facility] [address] [place] [address], * SCAN-CARDIAC STRIP (05/07/2024 12:00 AM CDT) [...] 03/25/2024 1:11 PM CDT TRANSESOPHAGEAL ECHOCARDIOGRAM ABIMBOLA PRECIADOSUSANAKIERA ? Accession#: ?? [id number] : ?1940 84 years Study Date: ?? 03/25/2024 11:23:16 AM Gender: F ?BP: ? 152/81 mmHg Height: 163.00 cm ?BSA: ?1.69 m? ? ? Weight: 64.00 kg ? Tech: ? MBL ? Referring MD: MORIAH ZAPATA Site: ? [facility] Reading Location: ANW OP Patient Location: [...] . This study was interpreted by an [facility] accredited facility. ??Final ?? Procedure Note Robert Dumont MD - 03/25/2024 TRANSESOPHAGEAL ECHOCARDIOGRAM ABIMBOLA SAMUELS : 1940 84 years Study Date: 03/25/2024 11:23:16 AM Gender: F BP: 152/81 mmHg Height: 163.00 cm BSA: 1.69 m? ? ? Weight: 64.00 kg Tech: [facility] Referring MD: MORIAH ZAPATA Site: [facility] Reading Location: ANW OP Patient Location: [...] . This study was interpreted by an [facility] accredited facility. Final Moriah SHORT ECHO ORD * TSH (03/25/2024 11:10 AM CDT) TSH 0.35 0.27 - 4.20 uIU/mL 03/25/2024 2:07 PM CDT [facility] Blood BLOOD SPECIMEN / Unknown Venipuncture / Unknown 03/25/2024 11:10 AM CDT 03/25/2024 11:21 AM CDT [facility]AL LAB[facility] - 03/25/2024 2:07 PM CDT In Adults, TSH values between 5.00 and 10.00 uIU/ml do not necessarily indicate the presence of Hypothyroidism. Correlation with clinical findings such as presence of goiter and/or Thyroperoxidase (TPO) Antibody may be helpful. For more information please refer to SHABANA 2004; 291: 228-238. Alma Burton DRYWALL METAL STUD WORKER CHEMISTRY Performing Organization Address [facility] de Phone Number [facility] [address] [address], [place] * ALT (SGPT) (03/25/2024 11:10 AM CDT) ALT (SGPT) 21 10 - 35 IU/L 03/25/2024 2:08 PM CDT [facility] Blood BLOOD SPECIMEN / Unknown Venipuncture / Unknown 03/25/2024 11:10 AM CDT 03/25/2024 11:21 AM CDT Alma Burton DRYWALL METAL STUD WORKER CHEMISTRY Performing Organization Address [facility] Phone Number [facility] [address] [place] [address], [place] * AST (SGOT) (03/25/2024 11:10 AM CDT) AST (SGOT) 32 10 - 35 IU/L 03/25/2024 2:07 PM CDT [facility] Blood BLOOD SPECIMEN / Unknown Venipuncture / Unknown 03/25/2024 11:10 AM CDT 03/25/2024 11:21 AM CDT Alma Burton DRYWALL METAL STUD WORKER CHEMISTRY Performing Organization Address [facility] Phone Number [facility] [address] [place] [address], [place] * SCAN-CARDIAC STRIP (03/25/2024 12:00 AM CDT) Narrative 03/25/2024 12:00 AM CDT Ordered by an unspecified provider. Other Clinical Staff OTHER from Last 3 Months Advance Directives Documents on File Type Date Recorded Patient Manager Trust Expl anation Healthcare Directive 10/20/2021 8:51 AM [...] Code Status Discussion: Reviewed Preferences Care Teams Woodyard Operator Relationship Specialty Start Date End Date Tamera Newton MD [address] [place] [phone] PCP - General Family Practice 10/24/23
--- OUTSIDE RECORDS SUMMARY | 2024-06-08 17:24 | XMS_ITS | Encounter Summary ---
Author Organization [facility] Address [address], [place] [address] Care Team Providers Care Claims Collector Name Role Phone Clinician, Not Found MD Primary Care Provider Un available Encounter Details Date Type Department Care Team (Late st Contact Info) Description 04/28/2024 Notes/Orders PN Anticoagulation Centralized Services [facility], [address] [place] [address] No Pcp, No Pcp, [place] [address] Social History Tobacco Use Types Packs/Day Years [...] st Contact Info) Description 06/24/2024 12:00 PM BUILDING SERVICES ENGINEER Appointment [facility] [address] [place] [address] Denise Davila MD [address] [place] [address] 08/19/2024 10:30 AM BUILDING SERVICES ENGINEER Appointment Rheumatology at [facility] [place] [address] [facility] [address] [place] [address] Denise Davila MD [address] [place] [phone] documented as of this encounter Visit Diagnoses Not on filedocumented in this encounter Care Teams Claims Collector Relationship Specialty Start Date End Date Clinician, Not Found, [place] [address] PCP - General 03/01/18 documented as of this encounter
--- OUTSIDE RECORDS SUMMARY | 2024-06-08 17:24 | XMS_ITS | Encounter Summary ---
Author Organization [facility] Address [address] [place] [address] Care Team Providers Care Paradi Tender Name Role Phone Clinician, Not Found MD Primary Care Provider Un available Reason for Visit * Reason Comments Follow-up Encounter Details Date Type Department Care Team (Late Contact Info) Description 04/25/2024 12:00 PM CDT Office Visit Rheumatology at [facility] [address] [phone] Denise Davila MD [address] [place], [place] [phone] PMR (polymyalgia rheumatica) (HRC) (Primary Dx); Chronic [...] Newton in a week or so. Notify med peds at [facility] to let him/her know that you are [...] having an INR followed wi th her med peds through [facility]'s system. She has been put on amiodarone [...] exams: Vital signs per flow sheet in [facility]. General appearance: An elderly female who was [...] also would recommend that she contact her med peds to let him/her know that she is [...] st Contact Info) Description 06/24/2024 12:00 PM SURVEY STATISTICIAN Appointment [facility] [address] [place] [address] Denise Davila MD [address] [place] [address] 08/19/2024 10:30 AM SURVEY STATISTICIAN Appointment Rheumatology at [facility] [place] [address] [place] [address] [place] [address] Denise Davila MD [address] [place] [phone] documented as of this encounter Visit Diagnoses [...] toes documented in this encounter Care Teams Paradi Tender Relationship Specialty Start Date End Date Clinician, Not Found, [place] [address] PCP - General 03/01/18 documented as of this encounter
--- OUTSIDE RECORDS SUMMARY | 2024-06-08 17:24 | XMS_ITS | Clinical Summary ---
Author Organization [facility] Address [address], [place] [address] Care Team Providers Care Lumber Chain Offbearer Name Role Phone Clinician, Not Found MD Primary Care Provider Un available Source Comments You are receiving this document as you are listed as the primary care provider,follow-up provider, or the patient has been referred to you for consultation.This is in compliance with the Medicare and[facility] Hamilton[facility] EHR Incentive Program,which states Providers who transition their patient to another setting of careor provider of care or refers their patient to another provider of care shouldprovide summary care record for each transition of care or referral. 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 Renal insufficiency 10/01/2020 Hyperuricemia 09/10/2020 S/P total knee arthroplasty, bilateral 8 S/P appendectomy 03/29/2018 Restless legs syndrome (RLS) 03/29/2018 Chronic left shoulder pain 03/29/2018 Psoriatic arthritis 03/29/2018 Sensorineural hearing loss 02/22/2005 Overview (04/04/2017): LW Onset: [id number] ; Hearing Loss Sensorineural Undiagnosed cardiac murmurs 02/22/2005 Overview (04/04/2017): LW Modifier: functional LW Onset: [id number] ; Heart Murmur Right bundle branch block 02/22/2005 Overview (03/16/2016): LW Onset: [id number] Obesity 05/04/2004 Overview (03/16/2016): LW Onset: [id number] Essential hypertension 01/17/2003 Overview (04/04/2017): Hypertension Hypothyroidism 01/17/2003 Overview (04/04/2017): Hypothyroidism Acquired Osteoarthritis 01/17/2003 Overview (04/04/2017): DJD Chronic kidney disease, stage 3b Encounters Date Type Department Care Team Description 04/28/2024 Notes/Orders PN Anticoagulation Centralized Services [address] [place] [address], [address] [place] [address] No Pcp, No MD Kartik 04/25/2024 12:00 PM CDT Office Visit Rheumatology at [facility] [place] [address] [address] [address] [place] [address] Denise Davila MD PMR (polymyalgia rheumatica) (HRC) (Primary Dx); Chronic tophaceous gout; Osteoarthritis of multiple joints, unspecified osteoarthritis type; 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; Persistent atrial fibrillation (HRC); Cellulitis of foot 03/27/2024 Telephone Rheumatology at [place] [address] [place] [address] Denise Davila MD Medication Questions from Last 3 Months Immunizations Name Administration Dates Next Due Flu Vac Preserv Free (3+yrs) 04/21/2013, 04/28/2009,05/21/2006,2004,05/04/2004 Influenza IIV3 (Trivalent) F ramiro Conklinse, 65+ Yrs ([address]) 06/15/2020,07/01/2019,05/27/2018,2017,05/30/2017,05/15/2016,04/28/2014 Influenza IIV4 (Quadrivalent ) Fluad, 65+ [...] st Contact Info) Description 06/24/2024 12:00 PM QUALITY MANAGEMENT COORDINATOR Appointment [facility] [address] [place] [address] Denise Davila MD [address] [place] [address] 08/19/2024 10:30 AM QUALITY MANAGEMENT COORDINATOR Appointment Rheumatology at [facility] [address] [address] Denise Davila MD [address] [place] [address] Health Maintenance Due Date Last Done Comments [...] age to complete this topic Care Teams Lumber Chain Offbearer Relationship Specialty Start Date End Date Clinician, Not Found, [place] [address] PCP - General 03/01/18
== END 2024-06-06 09:01 | disposition home or self-care (01) ==
LOC: NFLDREF 06-08 17:21
PROVIDERS: PCP Family Medicine; Referring Provider Family Medicine; Visit Provider Family Medicine
DX: Z79.01 Long term (current) use of anticoagulants (principal)
CPT/HCPCS: 85610

== ENCOUNTER 2024-06-20 09:15 | Outpatient (CLI) | payer MEDICARE, OTHER, SELFPAY | END 2024-06-20 09:16 | disposition home or self-care (01) | LOC: NFLDREF 06-21 19:38 | PROVIDERS: PCP Family Medicine; Referring Provider Family Medicine; Visit Provider Family Medicine | DX: Z79.01 Long term (current) use of anticoagulants (principal) | CPT/HCPCS: 85610 ==

== ENCOUNTER 2024-07-28 14:41 | Outpatient (CLI) | payer MEDICARE, OTHER, SELFPAY | END 2024-07-28 14:42 | disposition home or self-care (01) | LOC: RAD 14:42 | PROVIDERS: PCP Family Medicine; Visit Provider Family Medicine | DX: I48.91 Unspecified atrial fibrillation (principal); I51.7 Cardiomegaly; I35.1 Nonrheumatic aortic (valve) insufficiency; I34.0 Nonrheumatic mitral (valve) insufficiency; I07.1 Rheumatic tricuspid insufficiency; I42.9 Cardiomyopathy, unspecified | CPT/HCPCS: 93306 ==

== ENCOUNTER 2024-08-12 14:29 | Outpatient (CLI) | payer MEDICARE, OTHER, SELFPAY | END 2024-08-12 14:30 | disposition home or self-care (01) | PROVIDERS: PCP Family Medicine; Visit Provider Family Medicine | DX: E03.9 Hypothyroidism, unspecified (principal); I10 Essential (primary) hypertension; E78.5 Hyperlipidemia, unspecified | CPT/HCPCS: 80053; 80061; 84443 ==

== ENCOUNTER 2024-09-10 10:34 | Outpatient (CLI) | payer MEDICARE, OTHER, SELFPAY | END 2024-09-10 10:35 | disposition home or self-care (01) | LOC: NFLDREF 09-15 02:36 | PROVIDERS: PCP Family Medicine; Referring Provider Family Medicine; Visit Provider Family Medicine | DX: I12.9 Hypertensive chronic kidney disease with stage 1 through stage 4 chronic kidney disease, or unspecified chronic kidney disease (principal); N18.9 Chronic kidney disease, unspecified | CPT/HCPCS: 80048 ==

== ENCOUNTER 2024-12-19 09:00 | Outpatient (CLI) | payer MEDICARE, OTHER, SELFPAY | END 2024-12-19 09:01 | disposition home or self-care (01) | LOC: NFLDREF 12-20 08:02 | PROVIDERS: PCP Family Medicine; Referring Provider Family Medicine; Visit Provider Family Medicine | DX: I48.20 Chronic atrial fibrillation, unspecified (principal) | CPT/HCPCS: 85610 ==

== ENCOUNTER 2024-12-19 10:17 | Emergency (ER) | payer MEDICARE, OTHER, SELFPAY ==
[2024-12-19] VITALS (13 sets, daily range): BP systolic 165–176; BP diastolic 69–80; PULSE 47–71; RESP 8–22; TEMP 36.2; O2SAT 89–99; BMI 24.4
--- OUTSIDE RECORDS SUMMARY | 2024-12-19 10:20 | XMS_ITS | Encounter Summary ---
Author Organization [employer] Address [address] [place] [address] Care Team Providers Care Sales Designer Name Role Phone Clinician, Not Found MD Primary Care Provider Un available Encounter Details Date Type Department Care Team (Late Contact Info) Description 11/19/2024 Results Follow-Up Rheumatology at [address] [place] [address] Denise Davila MD [address] [place] [address] [phone] Social History Tobacco Use Types Packs/Day Years Used Date Smoking Tobacco: Never Smokeless Tobacco: Never Alcohol Use Standard Drinks/Week Comments Yes 0 (1 standard drink = 0.6 oz pur e alcohol) Comments Unknown Sex and Gender Information Value Date Recorded Sex Assigned at Not on file Legal Sex Female 10:58 AM CDT Gender Identity Not on file Sexual Orientation Straight 04/25/2024 8: 18 AM CDT documented as of this encounter Plan of Treatment Upcoming Encounters Date Type Department Care Team (Late Contact Info) Description 02/17/2025 11:45 AM CDT Appointment Rheumatology at [facility] [address] [id number] Denise Davila MD [address] [place], [place] [address]et [place] [address] documented as of this encounter Visit Diagnoses Not on filedocumented in this encounter Care Teams Sales Designer Relationship Specialty Start Date End Date Clinician, Not Found, [place] [address] PCP - General 03/01/18 documented as of this encounter
--- OUTSIDE RECORDS SUMMARY | 2024-12-19 10:20 | XMS_ITS | Encounter Summary ---
Author Organization [employer] Address [address], [place] [address] Care Team Providers Care Machinist Outside Name Role Phone Clinician, Not Found Primary Care Provider Un available Reason for Visit * Reason Comments RESULTS, TEST Encounter Details Date Type Department Care Team (Late st Contact Info) Description 11/19/2024 Telephone Rheumatology at [place] [address] [place] [address]. [place], [place] [phone] Denise Davila MD [address] [place] [address] [phone] RESULTS, TEST Social History Tobacco Use Types Packs/Day Years [...] as of this encounter Nursing Notes * Suri Stovall RN - 11/19/2024 8:39 AM CDT Spoke with patient, given the information below and patient verbalized understanding. * Denise Davila MD - 11/19/2024 7:14 AM CDT Please call to let her know that I have sent out result letter. The message is: Princess, the uric acid is at good level. And therefore, there is no need to change the dose of allopurinol. You will continue 150 mg a day. You still have refills on this medication until August,. They are to markers of inflammation. The sedimentation rate of 25 is acceptable for your age. The other numbers C-reactive protein is normal. I think the we can start reducing the prednisone further but we will do it more gradually. To simplify the tapering regimen, I would recommend that you stay on 2 mg a day x 12/10/2024, 1.5 mg/d x 01/10/2025, then stay at 1 mg/d. This new instruction has been faxed to your pharmacy. documented in this encounter Plan of Treatment Upcoming Encounters Date Type Department Care Team (Late st Contact Info) Description 02/17/2025 11:45 AM CDT Appointment Rheumatology at [facility] [address] [id number] Denise Davila MD [address] [place], [place] [phone] documented as of this encounter Visit Diagnoses Not on filedocumented in this encounter Care Teams Machinist Outside Relationship Specialty Start Date End Date Clinician, Not Found, [place] [address] PCP - General 03/01/18 documented as of this encounter
--- OUTSIDE RECORDS SUMMARY | 2024-12-19 10:20 | XMS_ITS | Encounter Summary ---
Author Organization [employer] Address [address] [place] [address] Care Team Providers Care Publications Designer Name Role Phone Clinician, Not Found Primary Care Provider Un available Reason for Visit * Reason Comments Follow-up Encounter Details Date Type Department Care Team (Late st Contact Info) Description 11/18/2024 11:45 AM CDT Office Visit Rheumatology at [facility] [place] [address] [place], [place] [phone] Denise Davila MD [address] [place], [place] [phone] PMR (polymyalgia rheumatica) (HRC) (Primary Dx); Chronic tophaceous gout; Osteoarthritis of multiple joints, unspecified osteoarthritis type; Stage 3 chronic kidney disease, unspecified whether stage 3a or 3b CKD (HRC) Social History Tobacco Use Types Packs/Day [...] AM CDT documented as of this encounter Last Filed Vital Signs Vital Sign Reading Time Taken Comments Blood Pressure 148/61 11/18/2024 12:22 PM CDT Pulse 54 11/18/2024 12:22 PM CDT Temperature - - Respiratory Rate - - Oxygen Saturation - - Inhaled Oxygen Concentration - - Weight 66.6 kg (146 lb 14.4 oz) 025 11:48 AM CDT with shoes Height - - Body Mass Index 24.63 03/29/2018 9:30 AM CDT documented in this encounter Patient Instructions * Patient Instructions* Denise Davila MD - 11/18/2024 11:45 AM CDT Talk to front end java developer to put in Demographics that it is OK to call Moriah (Marti) if we need to and when we cannot get a hold of you. If the numbers are [phone] (or [phone]), it is from Inga Hernandes. documented in this encounter Progress Notes * Denise Davila MD - 11/18/2024 11:45 AM CDT SUBJECTIVE: Follow-up for chronic tophaceous gout, PMR, generalized osteoarthritis and history of stage III chronic kidney disease. She was accompanied by her daughter (Marti), who is allowed by the patient to discuss her medical problem with. History of present illness: This is the 3-month follow-up for her. At the last clinic visit, we hadto reduce the dose of allopurinol from 200 mg to 150 mg a day since her serum uric acid went down to 2.9. Her gout is still under good control and there has been no new tophus formation. She has tapered prednisone down to the current dose of 2 mg a day. Overall, she is still feeling well but notices that she seems to be unstable when she is trying to do a backward walking. She has had gait and balance training with a local physical therapist. She thinks that she can do self gait and balancing exercises herself at home and will let me know if she feels like she needs an additional guidance again from a physical therapist. She reported no significant swollen joint, proximal girdle stiffness, cranial symptoms to suggest temporal arteritis. Past medical history, family and social history, current medications and adverse reactions were updated in EMR. Physical exams: BP (!) 148/61 (BP Location: Left Arm, BP Cuff Size: Large) Pulse (!) 54 Wt 146 lb 14.4 oz (66.6 kg) Comment: with shoes BMI 24.63 kg/m?? General appearance: An elderly female who was accompanied by her daughter (Marti) Skin: No tophus/tophi. Senile ecchymosis over the forearms (patient also takes warfarin). Musculoskeletal exams: All 4 extremities were examined. Osteoarthritic changes finger knuckles. No significant synovitis/inflammatory arthritis/dactylitis or effusion in any joints. Assessment and plan: 1. Chronic tophaceous gout. Clinically gout free. 2. History of PMR. No obvious clinical disease activity. 3. CKD stage 3B. 4. Chronic low-dose prednisone 2 mg a day. 5. History of osteopenia with significantly increased 10-year risk for a major osteoporotic fracture (21.3%) and hip fracture (8%). Her gout is clinically under good control. However, we will make sure that her serum uric acid is still less than 5 but not less than 3. She will have blood drawn today to check for serum uric acid and I will let her know whether we have to adjust the dose of allopurinol or not. She will continue allopurinol 150 mg a day in the meantime. Similarly for her PMR, I want to make sure that her inflammatory markers are acceptable before we cutting down the dose of prednisone further. Will add sed rate and CRP on a blood tests today as well. She will continue prednisone 2 mg a day in the meantime. I did not discuss with her about the choice of medication for osteoporosis today. At the last clinic visit, we decided to use denosumab due to her borderline GFR. However, she needed to have a tooth pulled first and I will find out with her over the phone whether this has been done. If this has been done and she is agreeable to go on denosumab, I will set up the therapy plan for her. Follow up again in 3 months. Will correspond with her regarding the test results. documented in this encounter Plan of Treatment Upcoming Encounters Date Type Department Care Team (Late st Contact Info) Description 02/17/2025 11:45 AM CDT Appointment Rheumatology at [facility] [place] [address] [address] [address] [place], [place] [phone] Denise Davila MD [address] [place], [place] [phone] documented as of this encounter Results * (ABNORMAL) Sedimentation Rate (ESR) (11/18/2024 12:59 PM CDT) Pathologist [facility] Sedimentation Rate 25(H) 0 - 20 mm/hr 11/18/2024 1:34 PM CDT [facility] Blood Venipuncture / Unknown 11/18/2024 12:59 PM CDT 11/18/2024 12:59 PM CDT Denise Davila MD LAB_1 Final Result Performing Organization Address [facility]/ZIP Co de Phone Number [facility] [address] [place] [phone], [facility] * C-Reactive Protein (11/18/2024 12:59 PM CDT) Pathologist [facility] C-Reactive Protein 0.4 0.0 - 0.5 mg/dL 11/18/2024 5:16 PM CDT [facility] Blood Venipuncture / Unknown 11/18/2024 12:59 PM CDT 11/18/2024 12:59 PM CDT Denise Davila MD LAB_1 Final Result Performing Organization Address City/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
--- OUTSIDE RECORDS SUMMARY | 2024-12-19 10:20 | XMS_ITS | Clinical Summary ---
Author Organization [employer] [facility] Address [address] [place] [address] Care Team Providers Care Natural Gas Basis Trader Name Role Phone Tamera Newton MD Primary Care Provider + Allergies Active Allergy Reactions Criticality Noted Date Comments Propoxyphene Other - Describe In Comment Field Medium 10/21/1999 Lethargy Sulindac Hives High 06/03/2003 Medications omeprazole (PRILOSEC) 20 mg Delayed-Release capsule Take [...] morning. 30 Tablet 1 01/28/20 24 Active warfarin (COUMADIN) 5 mg tabletIndication s:Left atrial thrombus Take 0.5 Tablets (2.5 mg) by mouth once daily. Until directed by anticoagulation clinic. 03/25/20 Active Additional Information Patient taking differently: (No dose reported), (No route reported), (No frequency reported), 2.5 mg daily except SKIP dose on Tuesdays, Fridays, Reported on 05/07/2024 diphenhydrAMINE- acetaminophen 25-500 mg (Tylenol PM Extra [...] Recheck INR on Sunday (05/19). 4 Tablet 05/16/20 Active metoprolol succinate (TOPROL XL) 25 mg Sustained-Releas e tabletIndication s:Persistent atrial fibrillation (HC),Cardiomyopa thy, unspecified type (HC) Take 1 Tablet (25 mg) by mouth two times daily. Additional refills to be received at upcoming appt with Dr. Harper in early Aug Tablet 07/23/20 24 Active amiodarone (CORDARONE) 200 mg tabletIndication s:Persistent atrial fibrillation (HC) Take 1 Tablet (200 mg) by mouth once daily. Additional refills to be received at upcoming appt with Dr. 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 0 05/08/2024 Financial Resource Strain Answer Date R ecorded Difficulty of Paying Living Expenses 3 01/28/2024 Difficulty of Paying Living Expenses Not on file 01/28/2024 Food Insecurity Answer Date Recorded Do you worry your food will run out before you are able to buy more? 1 05/08/2024 Transportation Needs Answer Date Record ed Does lack of transportation keep you from medica l appointments? 1 05/08/2024 Does lack of transportation keep you from work, meetings or getting things that you need? 1 05/08/2024 Housing Stability Answer Date Recorded What is your housing situation today? 1 05/08/2024 Interpersonal Safety Answer Date Record ed Are you being hit, kicked, p ushed or yelled at (see row info)? No 05/07/2024 Interpersonal Safety Abuse 12 - 18 Not on file 05/07/2024 Interpersonal Safety Ambulatory Vulnerability No t on file 05/07/2024 Utilities Answer Date Recorded Do you have trouble paying f or utilities (for example, heat, electricity, water, phone)? 1 05/08/2024 Comments No Sex and Gender Information Value Date Recorded Sex Assigned at Not on file Legal Sex Female 5:27 AM AD SETTER Gender Identity Not on file Sexual Orientation Not on file Obstetrics History Last Filed Vital Signs Vital Sign Reading Time Taken Comments Blood Pressure 172/84 07/16/2024 11:19 AM AD SETTER Pulse 63 07/16/2024 11:19 AM AD SETTER Temperature 36.4 C (97.6 F) 05/16/2024 9:31 AM CDT Respiratory Rate 16 05/16/2024 9:31 AM CDT Oxygen Saturation 96% 07/16/2024 11:19 AM AD SETTER Inhaled Oxygen Concentration - - Weight 66.2 kg (146 lb) 06/17/2024 2:24 PM AD SETTER Height 162.6 cm (5' 4) 05/12/2024 6:00 AM CDT Body Mass Index 25.06 05/12/2024 6:00 AM CDT Plan of Treatment Health Maintenance Due Date Last Done Comments Depression screening for age 12+ 1952 BMI (ht and wt on same day) for age 18+ 02/27/1958 DEXA/DXA scan for age 65+ 02/27/2005 Medicare Wellness for age 65+ 02/27/2005 RSV vaccine for adults or (1 - 1-dose 75+ series) 02/27/2015 COVID-19 vaccine series ( season) 2025 08/12/2024, 06/03/2022, 07/08/2021, Additional history exists Influenza Vaccine (Season Ended) 2025 07/08/2021, 06/15/2020, 06/15/2020, Additional history exists Tetanus booster 09/24/2029 09/24/2019, 03/13, 07/19/1998 Pneumococcal series for age 50+ Completed 5, 02/19/2006 Zoster (shingles) series for age 50+ Completed 10/18/2018, 08/09/2018, 07/01/2009, Additional history exists Tdap Completed 09/24/2019, 03/26/2009 Medical Devices Implanted Type Area Recruitment Officer Device Identifier Shelf Expiration Date Model / Serial / Lot Simplex P Bone Cement - Half Dose Implanted:Qty: 2 on 10/18/2021 by Kevin Hogue MD at [facility] Left: Knee [employer] 07/12/2023 / [id number] / [id number] Triathlon Femoral Posterior Augment Implanted:Qty: 1 on 10/18/2021 by Kevin Hogue MD at [facility] Left: Knee [employer] 06/01/2025 / [id number] / [id number] Simplex P Bone Cement Full Dose Implanted:Qty: 2 on 10/18/2021 by Kevin Hogue MD at [facility] Left: Knee [employer] 09/12/2023 / [id number] / [id number] Triathlon Fluted Stem - Tibia Implanted:Qty: 1 on 10/18/2021 by Kevin Hogue MD at [facility] Left: Knee [employer] 10/09/2025 / [id number] / [id number] Triathlon Tritanium Tibial Symmetric Cone Augment Implanted:Qty: 1 on 10/18/2021 by Kevin Hogue MD at [facility] Left: Knee [employer] 05/04/2026 / [id number] / [id number] Triathlon Total Knee Troy Tibial Baseplate Implanted:Qty: 1 on 10/18/2021 by Kevin Hogue MD at [facility] Left: Knee [employer] 12/19/2025 / [id number] / [id number] Triathlon Fluted Stem - Femur Implanted:Qty: 1 on 10/18/2021 by Kevin Hogue MD at [facility] Left: Knee [employer] 06/15/2025 / [id number] / [id number] Triathlon Total Stabilizer Femoral Component Implanted:Qty: 1 on 10/18/2021 by Kevin Hogue MD at [facility] Left: Knee [employer] 01/16/2026 / [id number] / [id number] Triathlon X3 Total Stablizer+ Tibial Insert Implanted:Qty: 1 on 10/18/2021 by Kevin Hogue MD at [facility] Left: Knee [employer] 08/31/2026 / [id number] -[id number] / [id number] Triathlon Femoral Posterior Augment Implanted:Qty: 1 on 10/18/2021 by Kevin Hogue MD at [facility] Left: Knee [employer] 09/05/2025 / [id number] / [id number] Insurance MEDICARE PB ONLY [facility] MEDICARE PART B HB ONLY MEDICARE PART A HB ONLY MEDICARE PROVIDER BASED FOR LIFE Advance Directives Documents on File Type Date Recorded Patient Tractor Trailer Driver Expl anation Healthcare Directive 10/20/2021 8:51 AM [...] Code Status Discussion: Reviewed Preferences Care Teams Natural Gas Basis Trader Relationship Specialty Start Date End Date Tamera Newton MD [address] [place] [address] PCP - General Family Practice 10/24/23
--- OUTSIDE RECORDS SUMMARY | 2024-12-19 10:20 | XMS_ITS | Clinical Summary ---
Author Organization [employer] Address [address], [place] [address] Care Team Providers Care On Air Announcer Name Role Phone Clinician, Not Found MD Primary Care Provider Un available Source Comments You are receiving this document as you are listed as the primary care provider,follow-up provider, or the patient has been referred to you for consultation.This is in compliance with the Medicare and[facility] EHR Incentive Program,which states Providers who transition their patient to another setting of careor provider of care or refers their patient to another provider of care shouldprovide summary care record for each transition of care or referral. [employer] Allergies Active Allergy Reactions Criticality Noted Date Comments Propoxyphene Other, see comments Medium 10/21/1999 Lethargy Sulindac Hives High 06/03/2003 Medications omeprazole (PRILOSEC) 20 MG capsule Take 1 Capsule (20 mg) by mouth. 5 Active levothyroxine (SYNTHROID) 75 MCG tablet Take 1 Tablet (75 mcg) by mouth daily. 2 Active furosemide (LASIX) 20 MG tablet Take 1 Tablet (20 mg) by mouth as needed. 1 Active Metoprolol Succinate 25 MG CS24 Take 1 Capsule (25 mg) by mouth two times a day. Active amiodarone (PACERONE) 200 MG tablet Take 2 Tablets (400 mg) by mouth daily. Active spironolactone (ALDACTONE) 25 MG tablet Take 0.5 Tablets (12.5 mg) by mouth daily. Active atorvastatin (LIPITOR) 40 MG tablet Take 1 Tablet (40 mg) by mouth daily. Active warfarin 2.5 MG tablet Managed by outside facility/provide r 4 Active allopurinol (ZYLOPRIM) 100 MG tablet Take 150 mg/d (1.5 tabs) all in am. (New instruction as of 08/19/2024) 180 Tablet 3 5 Active diphenhydrAMINE -APAP (TYLENOL PM EXTRA STRENGTH) 25-500 MG tablet Take 1 Tablet by mouth at bedtime as needed. Active predniSONE (DELTASONE) 1 MG tablet All in am: 2 mg a day x 12/10/2024, 1.5 mg/d x 01/10/2025, then stay at 1 mg/d. 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 Renal insufficiency 10/01/2020 Hyperuricemia 09/10/2020 S/P total knee arthroplasty, bilateral 8 S/P appendectomy 03/29/2018 Restless legs syndrome (RLS) 03/29/2018 Chronic left shoulder pain 03/29/2018 Psoriatic arthritis 03/29/2018 Sensorineural hearing loss 02/22/2005 Overview (04/04/2017): LW Onset: [id number] ; Hearing Loss Sensorineural Undiagnosed cardiac murmurs 02/22/2005 Overview (04/04/2017): LW Modifier: functional LW Onset: [id number] ; Heart Murmur Right bundle branch block 02/22/2005 Overview (03/16/2016): LW Onset: [id number] Obesity 05/04/2004 Overview (03/16/2016): LW Onset: [id number] Essential hypertension 01/17/2003 Overview (04/04/2017): Hypertension Hypothyroidism 01/17/2003 Overview (04/04/2017): Hypothyroidism Acquired Osteoarthritis 01/17/2003 Overview (04/04/2017): DJD Chronic kidney disease, stage 3b Encounters Date Type Department Care Team Description 11/19/2024 Telephone Rheumatology at [address] [place] [address] Denise Davila MD RESULTS, TEST 11/19/2024 Results Follow-Up Rheumatology at [address] [place] [address] Denise Davila MD 11/18/2024 12:30 PM CDT Lab Visit [address] [address] Chronic tophaceous gout; PMR (polymyalgia rheumatica) (HRC) 11/18/2024 11:45 AM CDT Office Visit Rheumatology at [facility] and [address] [address] Denise Davila MD PMR (polymyalgia rheumatica) (HRC) (Primary Dx); Chronic tophaceous gout; Osteoarthritis of multiple joints, unspecified osteoarthritis type; Stage 3 chronic kidney disease, unspecified whether stage 3a or 3b CKD (HRC) from Last 3 Months Immunizations Immunization Administration Dates Next Due Flu Vac Preserv Free (3+yrs) 04/21/2013, 04/28/2009,05/21/2006,2004,05/04/2004 Influenza IIV3 (Trivalent) F ramiro Highdose, 65+ Yrs (11728) 06/15/2020,07/01/2019,05/27/2018,2017,05/30/2017,05/15/2016,04/28/2014 Influenza IIV4 (Quadrivalent ) Fluad, 65+ [...] Pulse 54 11/18/2024 12:22 PM CDT Temperature 35.9 C (96.6 F) 09/29/2022 9:47 AM FILENET P8 DEVELOPER Respiratory Rate - - Oxygen Saturation - - Inhaled Oxygen Concentration - - Weight 66.6 kg (146 lb 14.4 oz) 025 11:48 AM CDT with shoes Height 164.5 cm (5' 4.75) 03/29/2018 9 :30 AM CDT Body Mass Index 24.63 03/29/2018 9:30 AM CDT Plan of Treatment Upcoming Encounters Date Type Department Care Team (Late st Contact Info) Description 02/17/2025 11:45 AM CDT Appointment Rheumatology at [facility] [address] [id number] Denise Davila MD [address] [place] [address] Health Maintenance Due Date Last Done Comments Medicare Annual Wellness Visit 1940 RSV Vaccine (1 - 1-dose 75+ series) 02/27/2015 COVID-19 Vaccine ( season) 2025 08/12/2024, 06/03/2022, 07/08/2021, Additional history exists Dexa 06/24/2026 06/24/2024 DTaP/Tdap/Td Vaccine (3 - Tdap) 09/24/2029 09/24/2019, 03/26/2009, 07/19/1998 HepA Vaccine Aged Out 11/20/2012, 10/17/2012 No lo nger eligible based on patient's age to complete this topic Pneumococcal Vaccine 50+ Yrs Completed 05/04/2015, 02/19/2006 Zoster/Shingles Vaccine Completed 10/19/19 19, 08/09/2018, 07/01/2009, Additional history exists Influenza Vaccine Completed 08/12/2024, , 06/05/2022, Additional history exists HepB Vaccine Aged Out No longer eligi ble based on patient's age to complete this topic Hib Vaccine Aged Out No longer eligi ble based on patient's age to complete this topic IPV (Polio) Vaccine Aged Out No longe r eligible based on patient's age to complete this topic MCV4 Vaccine Aged Out No longer eligi ble based on patient's age to complete this topic Meningococcal B Vaccine Aged Out No l onger eligible based on patient's age to complete this topic Procedures Procedure Name Priority Date/Time Associated Diagnosis Comments SEDIMENTATION RATE (ESR) Routine 11/18/2024 12:59 PM CDT PMR (polymyalgia rheumatica) (HRC) C-REACTIVE PROTEIN Routine 11/18/2024 12 :59 PM CDT PMR (polymyalgia rheumatica) (HRC) URIC ACID Routine 11/18/2024 12:59 PM CDT Chronic tophaceous gout DXA BONE DENSITY SPINE/HIP INC VERT FX ASSESS Routine 06/24/2024 12:03 PM FILENET P8 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 from Last 3 Months or Most Recently Relevant to Health Maintenance Results * C-Reactive Protein (11/18/2024 12:59 PM CDT) C-Reactive Protein 0.4 0.0 - 0.5 mg/dL 11/18/2024 5:16 PM CDT [facility] Blood Venipuncture / Unknown 11/18/2024 12:59 PM CDT 11/18/2024 12:59 PM CDT us Denise Davila MD LAB_1 Final Result Performing Organization Address [facility] de Phone Number [address] * Uric Acid (11/18/2024 12:59 PM CDT) Uric Acid 3.6 2.6 - 6.0 mg/dL 11/18/2024 5:16 PM CDT [facility] Blood Venipuncture / Unknown 11/18/2024 12:59 PM CDT 11/18/2024 12:59 PM CDT us Denise Davila MD LAB_1 Final Result Performing Organization Address City/[facility]/ZIP Co de Phone Number [address] * (ABNORMAL) Sedimentation Rate (ESR) (11/18/2024 12:59 PM CDT) Sedimentation Rate 25(H) 0 - 20 mm/hr 11/18/2024 1:34 PM CDT [facility] Blood Venipuncture / Unknown 11/18/2024 12:59 PM CDT 11/18/2024 12:59 PM CDT us Denise Davila MD LAB_1 Final Result [facility] [address] [place] [address], [facility] * DXA Bone Density Spine/Hip Inc Vert FX Assess (06/24/2024 12:03 PM FILENET P8 DEVELOPER) DXA Hip Left Bone Mineral Density 0.704 gm/cm2 EXTERNAL RESULTS DXA Hip Left T-Score -2.0 EXTERNAL RESULTS DXA Hip Left Z-Score 0.3 EXTERNAL RESULTS DXA Femur Left Bone Mineral Density 0.628 gm/cm2 EXTERNAL RESULTS DXA Femur Left T-Score -2.0 EXTERNAL RESULTS DXA Femur Left Z-Score 0.5 EXTERNAL RESULTS DXA Lumbar Spine Bone Mineral Density 1.228 gm/cm2 EXTERNAL RESULTS DXA Lumbar Spine T-Score 1.6 EXTERNAL RESULTS DXA Lumbar Spine Z-Score 4.5 EXTERNAL RESULTS % Change Spine 8.6 % EXTER NAL RESULTS % Change Left Hip (Total) -31.0 % EXTERNAL RESULTS Anatomical Region Laterality Modality Spine, Hip Radiographic Dayanna ging Narrative 06/27/2024 3:06 PM FILENET P8 DEVELOPER Table formatting from the original result was not included. Patient Name: Abimbola Samuels Densitometer: [employer] W Appt Dept/Resource: [facility]ONE Demographics Age: 84 y.o. Gender: Female Height: 5' 4.75 (1.645 m) Height at age 25: 5.6 Weight: 160 lb (72.6 kg) Race: Medical/Surgical History Menstrual periods: None Age of menopause: 33 Able to stand from a chair easily without use of the arms?: Yes, easily How many falls indoors/outdoors within the last 12 months?: 2 or more History of fractures in parents: No History of previous fractures?: No Hip replacement?: No Oral cortisone or steroid medication for more than 3 months?: Yes, currently At least 5 mg prednisone or equivalent?: Yes Currently or have taken medications to treat osteoporosis?: No Taking any aromatase inhibitor medication for breast cancer - anti-estrogen excluding tamoxifen?: No Have had the following medical conditions: None Dietary/Habit Alcohol 3 units or more per day on average?: No Currently smoking tobacco? No Daily servings of calcium rich food: 0 Do you take a daily calcium supplement?: No Dual-X-ray Absorptiometry (DXA) Results Skeletal Site BMD (gm/cm2) T-Score Z-Score % Change from Previous Scan dated: 11/27/2000 Spine (L1, L2, L3, L4) 1.228 1.6 4.5 8.6% Left Hip (Total) 0.704 -2.0 0.3 -31.0% Left Hip (Femoral neck) 0.628 -2.0 0.5 N/A *N/A indicates that measurements were either not needed or not valid Spine BMD is likely to be falsely overestimated due to the presence of degenerative sclerosis. TBS: Trabecular Bone Score (TBS): 1.306 FRAX Score: 10 Year Risk Hip Fracture: 8% 10 Year Risk Major Osteoporotic Fracture: 21.3% VERTEBRAL FRACTURE ASSESSMENT: *No vertebral fractures are present in evaluable vertebrae *Some vertebrae are not well visualized due to poor definition of vertebral bodies and endplates as well as overlying artifact. *Extensive degenerative changes are noted in the spine Comments: *Increase in bone density of spine is clinically significant. *Decrease in bone density of hip is clinically significant. *Degenerative joint disease, compression fractures, or calcification artifacts may falsely increase bone mineral density. Diagnosis: *Low bone mass (osteopenia) of left hip. *Patient has a high risk of fracture Recommendations: *Recommend lifestyle modifications as needed, including proper calcium/vitamin d intake, weight-bearing exercises, and fall precaution. *Consider evaluation of secondary causes of bone loss if not previously performed. *In the setting of low bone mass and a FRAX score >20%, as in this case, one could consider pharmacotherapy for low bone mass for a few years to reduce fracture risk. Clinical correlation required. *Consider follow up DEXA scan in 2-3 years pending clinical circumstances and treatment, earlier if clinical circumstances change. Changes of spine and total hip bone density >= 0.03 g/cm2 are beyond densitometer precision error and generally are considered significant when the current and prior studies were done on the same densitometer. FRAX Explanation: The 10 year risks of hip and major osteoporotic fractures (clinical spine, forearm, hip or shoulder fracture) are calculated by the FRAX algorithm based on femoral neck bone density, age, gender, race/ethnicity, weight, height, previous fracture, parental hip fracture, smoking status, glucocorticoid intake, history of RA, secondary osteoporosis, and high alcohol consumption. FRAX fracture risk estimates are adjusted for Trabecular Bone Score (TBS) when available. Trabecular Bone Score (TBS) is a measure of the microarchitectural integrity of trabecular bone, and is derived from the [id number] changes of bone density embedded in the AP spine BMD image. TBS is only modestly correlated with BMD, and is modestly associated with incident major osteoporotic and hip fractures independent of BMD and other risk factors. FRAX Fracture Risk Categories in terms of major osteoporotic fractures: < 10% = low fracture risk >= 10% and <15% = mildly increased fracture risk >= 15% and <20% = moderately increased fracture risk >= 20% and <30% = high fracture risk >= 30% = very high fracture risk National Osteoporosis Foundation Treatment Guideline A clinician may consider FDA-approved medical therapies in postmenopausal women and men aged 50 years and older, if one or more of the following is present (clinical correlation required and therapy may not always be indicated): The patient has a hip or vertebral fracture. T-score <= -2.5 at the femoral neck, hip, or spine after appropriate evaluation to exclude secondary causes. Low bone mass (T-score between -1.0 and -2.5 at the femoral neck, hip or spine) and a 10-year probability of a hip fracture >= 3% or a 10-year probability of a major osteoporosis-related fracture >= 20% based on the FRAX scores. Denise LIND DEXA Final Result from Last 3 Months or Most Recently Relevant to Health Maintenance Insurance MEDICARE [employer] MEDICARE FOR LIFE Care Teams On Air Announcer Relationship Specialty Start Date End Date Clinician, Not Found, [place] [address] PCP - General 03/01/18
--- OUTSIDE RECORDS SUMMARY | 2024-12-19 10:20 | XMS_ITS | Encounter Summary ---
Author Organization [employer] Address [address], [place] [address] Care Team Providers Care Nitrate Operator Name Role Phone Clinician, Not Found MD Primary Care Provider Un available Encounter Details Date Type Department Care Team (Late st Contact Info) Description 11/18/2024 12:30 PM CDT Lab Visit [facility] [address] [place] [address] Chronic tophaceous gout; PMR (polymyalgia rheumatica) (HRC) Social History Tobacco [...] 11:45 AM CDT Appointment Rheumatology at [facility] [place] [address] [address] [address] [place] [address] Denise Davila MD [address] [place], [place] [id number] documented as of this encounter Procedures Procedure Name Priority Date/Time Associated Diagnosis Comments C-REACTIVE PROTEIN Routine 11/18/2024 12 :59 PM CDT PMR (polymyalgia rheumatica) (HRC) URIC ACID Routine 11/18/2024 12:59 PM CDT Chronic tophaceous gout SEDIMENTATION RATE (ESR) Routine 11/18/2024 12:59 PM CDT PMR (polymyalgia rheumatica) (HRC) documented in this encounter Results * (ABNORMAL) Sedimentation Rate (ESR) (11/18/2024 12:59 PM CDT) Pathologist [facility] Sedimentation Rate 25(H) 0 - 20 mm/hr 11/18/2024 1:34 PM CDT [facility] Blood Venipuncture / Unknown 11/18/2024 12:59 PM CDT 11/18/2024 12:59 PM CDT Denise Davila MD LAB_1 Final Result Performing Organization Address [facility]/ZIP Co de Phone Number [address] * C-Reactive Protein (11/18/2024 12:59 PM CDT) Pathologist [facility] C-Reactive Protein 0.4 0.0 - 0.5 mg/dL 11/18/2024 5:16 PM CDT [facility] Blood Venipuncture / Unknown 11/18/2024 12:59 PM CDT 11/18/2024 12:59 PM CDT Denise Davila MD LAB_1 Final Result [facility] [address] * Uric Acid (11/18/2024 12:59 PM CDT) Pathologist [facility] Uric Acid 3.6 2.6 - 6.0 mg/dL 11/18/2024 5:16 PM CDT [facility] Blood Venipuncture / Unknown 11/18/2024 12:59 PM CDT 11/18/2024 12:59 PM CDT us Denise Davila MD LAB_1 Final Result [facility] [address] [place] [address] documented in this encounter Visit Diagnoses Diagnosis 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
--- NOTE | 2024-12-19 10:47 | ED_ITS ---
HPI - General Adult General Date Seen: 12/19/24 Chief complaint: Syncope/Fainted Stated complaint: clinic sent her hereto get heart rate checked Time Seen by Provider: 12/19/24 10:47 History of Present Illness HPI narrative: 84-year-old female who is referred to the ER today to get her heart rate Checked. Per the nurse triage note, she actually fell 5 days ago on Sunday and has the bruise on the left side of her face. Last night she had a dizzy spell and fell again. She apparently had AFib last fall. per past medical record she has a history of AFib, hypertension, cardiomyopathy, mitral valve stenosis, polymyalgia rheumatica, heart failure, hypothyroidism, previous note of left atrial appendage thrombus from January 2024, History of 2 previous pulmonary emboli which apparently prevented CABG in the past.. per cardiology note from 08/14/2024. She apparently has a history of AFib and has failed cardioversion in the past. Plan had been to place a pacemaker, but that procedure was delayed because at the same time she was dealing with an infection in her foot. According to the notes from August 2024 she has paroxysmal AFib but was in sinus rhythm during that visit. Notes indicate that she was currently well managed on amiodarone and maintaining sinus rhythm. She was on warfarin for PE ( and would also cover for stroke prophylaxis). she has known severe mitral stenosis but since she was stable at that time, no surgical intervention was recommended. She has leg weakness from PMR. Follow-up in 1 year. Current med list includes warfarin, spironolactone 37.5 mg daily, prednisone 2 mg daily, metoprolol 25 mg p.o. b.i.d. of the extended release, levothyroxine 75 mcg daily, furosemide 20 mg daily, amiodarone 200 mg daily, atorvastatin, as well as other meds. patient notes that she actually came to the outpatient clinic today for a previously scheduled INR check. While she was at the clinic, she mention to the nurse that she wanted the nurse to listen to her heart to see if it was regular or irregular to tell the patient if she was in AFib or not. The patient's heart was regular but upon hearing about the fact that the patient fell last night and had another dizzy spell with fall several days ago, the nurse then rib recommended the patient come here to the ER. The patient does confirm that she had AFib in 2023, probably around Easter time. It sounds like she was symptomatic with that and feet experiencing shortness of breath whenever she was in AFib. She with through an extensive evaluation and was on the cusp of having a pacemaker implanted. However that procedure require delay because she needed treatment and curing of a foot infection 1st. 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 She also notes that she has pretty severe mitral valve disease and says that she told has been told she needs open heart surgery to repair it, but she has been reluctant to consider open heart surgery given her age. She says, you know I am 84 years old , don't you? she has not been experiencing any symptoms that make her think she is in AFib lately. No shortness of breath. No palpitations. No chest pain. She has been otherwise fine. No recent illness, fever, cough, shortness of breath, diarrhea. She has not really had any symptoms of dehydration. She notes that several days ago, possibly last week, possibly Sunday she was walking in her house and she felt as if she was off balance and fell. She says she typically gets off balance when she tries to walk backwards and that is been a problem for her for quite some time so she generally tries to avoid walking backwards. She had another episode that happened yesterday. She had walked from her living room into her kitchen to make dinner. When she bent forward to get a escudero out of the covered and then stood back up she had unbalanced spell. She says it felt like the wind was blowing on me. She fell. She did not really lose consciousness. She again did not have any palpitations or shortness of breath or chest pain. She does not have anypain from the fall. She does have some bruising on her left forearm and elbow from the fall last week and some bruising on her right upper arm from a fall yesterday. She does not want any further workup for the falls. She thinks it is probably just her baseline balance. She simply asked the nurse at the clinic to listen to her heart and then that prompted the nurse to refer her to the ER. She feels as though she does not really need extensive ER workup. She just wants to get home today. Related Data Home Medications ?Medication ?Instructions ?Recorded ?Confirmed allopurinol 100 mg tablet 200 mg PO QDAY 10/02/22 12/19/24 acetaminophen 500 mg capsule 1,000 mg PO QHS PRN 01/31/24 12/19/24 prednisone 1 mg tablet 2 mg PO DAILY 02/25/24 12/19/24 amiodarone 200 mg tablet 200 mg PO QDAY 08/12/24 12/19/24 Previous Rx's ?Medication ?Instructions ?Recorded atorvastatin 40 mg tablet 40 mg PO .Bedtime #90 tabs 08/12/24 furosemide 20 mg tablet 20 mg PO QAM edema #90 tabs 08/12/24 metoprolol succinate 25 mg 25 mg PO BID #180 tabs 08/12/24 tablet,extended release 24 hr omeprazole 20 mg capsule,delayed 20 mg PO DAILY #90 caps 08/12/24 release spironolactone 25 mg tablet 12.5 mg (1/2 x 25 mg) PO DAILY #90 08/12/24 tabs levothyroxine 75 mcg tablet 75 mcg PO DAILY #90 tabs 09/05/24 warfarin 2 mg tablet 2 mg PO 5XW #90 tabs 11/24/24 Allergies Allergy/AdvReac Type Severity Reaction Status Date / Time propoxyphene Allergy Severe Weakness Verified 12/19/24 10:30 [facility] Medical History (Updated 12/19/24 @ 13:39 by Dario Begum MD) Balance problem ?R26.89 - Other abnormalities of gait and mobility (ICD-10) Idiopathic peripheral neuropathy (04/21/13) ?G60.9 - Hereditary and idiopathic neuropathy, unspecified (ICD-10) Abdominal pain, right lateral ?R10.9 - Unspecified abdominal pain (ICD-10) Polymyalgia rheumatica (11/30/23) ?M35.3 - Polymyalgia rheumatica (ICD-10) Chronic kidney disease ?N18.9 - Chronic kidney disease, unspecified (ICD-10) Chronic atrial fibrillation (11/2023) ?I48.20 - Chronic atrial fibrillation, unspecified (ICD-10) Mitral valve stenosis, severe ?I05.0 - Rheumatic mitral stenosis (ICD-10) Chronic HFrEF (heart failure with reduced ejection fraction) ?I50.22 - Chronic systolic (congestive) heart failure (ICD-10) Cardiomyopathy ?I42.9 - Cardiomyopathy, unspecified (ICD-10) Thrombus of left atrial appendage (01/2024) ?I51.3 - Intracardiac thrombosis, not elsewhere classified (ICD-10) Weight loss (~11/2022) ?R63.4 - Abnormal weight loss (ICD-10) Elevated CK ?R74.8 - Abnormal levels of other serum enzymes (ICD-10) Shoulder pain, bilateral ?M25.511 - Pain in right shoulder (ICD-10) ?M25.512 - Pain in left shoulder (ICD-10) Diarrhea (01/07/23) ?R19.7 - Diarrhea, unspecified (ICD-10) Eczema ?L30.9 - Dermatitis, unspecified (ICD-10) GERD (gastroesophageal reflux disease) ?K21.9 - Gastro-esophageal reflux disease without esophagitis (ICD-10) Normal coronary angiogram Rheumatoid arthritis (2008) ?M06.9 - Rheumatoid arthritis, unspecified (ICD-10) Restless legs syndrome ?G25.81 - Restless legs syndrome (ICD-10) Hypothyroidism ?E03.9 - Hypothyroidism, unspecified (ICD-10) Hypertension ?I10 - Essential (primary) hypertension (ICD-10) Hyperlipidemia (03/26/09) ?E78.5 - Hyperlipidemia, unspecified (ICD-10) Surgical History (Updated 11/18/24 @ 12:37 by Angi Ramsey) History of bunionectomy of left great toe (07/02/97) ?Z98.890 - Other specified postprocedural states (ICD-10) History of bunionectomy of right great toe (11/28/89) ?Z98.890 - Other specified postprocedural states (ICD-10) History of foot surgery (03/17/15) ?Z98.890 - Other specified postprocedural states (ICD-10) Hx of foot surgery (05/13/24) ?Z98.890 - Other specified postprocedural states (ICD-10) History of cardioversion (03/25/24) ?Z92.89 - Personal history of other medical treatment (ICD-10) History of transesophageal echocardiography (RAMEZ) (01/24/24) ?Z92.89 - Personal history of other medical treatment (ICD-10) History of endoscopy (03/20/23) ?Z98.890 - Other specified postprocedural states (ICD-10) 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) ?Z96.651 - Presence of right artificial knee joint (ICD-10) History of revision of total knee arthroplasty (~10/19/21) ?Z96.659 - Presence of unspecified artificial knee joint (ICD-10) History of total left knee replacement (1999) ?Z96.652 - Presence of left artificial knee joint (ICD-10) History of total right knee replacement (08/07/95) ?Z96.651 - Presence of right artificial knee joint (ICD-10) H/O hysterectomy with oophorectomy (1972) H/O lumpectomy (1972) ?Z98.890 - Other specified postprocedural states (ICD-10) H/O cataract extraction (~2013) ?Z98.49 - Cataract extraction status, unspecified eye (ICD-10) H/O foot surgery (11/26/17) ?Z98.890 - Other specified postprocedural states (ICD-10) History of tonsillectomy (1944) ?Z90.89 - Acquired absence of other organs (ICD-10) History of appendectomy (1956) ?Z90.49 - Acquired absence of other specified parts of digestive tract (ICD- 10) Family History Brother Cancer of kidney, Onset Age: 57 Mother Stroke, Onset Age: 87 Father Myocardial infarction Heart disease, Onset Age: 78 Sister Stroke, Onset Age: 85 Cancer of kidney Brother Cancer of kidney, Onset Age: 76 Social History Narrative: , 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, 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 former smoker-quit around 1969 3 alcoholic drinks a week No formal exercise but cleans house uses stairs regularly What is your current living situation?: I presently have a place to live Problems where you live: no known problems Problems where you live details: none In the past 12 months, utilities in danger of being shut off: no In past 12 months, lack of transportation kept you from medical appts, meetings, work, or getting things needed for daily living: no In the past 12 mos, have been you worried that your food would run out before you had money to buy more?: never true In the past 12 mos, the food you bought just didn't last and you didn't have money to buy more?: never true Highest level of school completed/degree received: Bachelor's degree Smoking Status: Former smoker What tobacco products do you use: cigarettes Smoking quit date/years: >15 years ago Do you use any of these nicotine containing products: None Second hand tobacco smoke exposure: No How often do you have a drink containing alcohol: never How many standard drinks containing alcohol do you have on a typical day: 1 or 2 How often do you have six or more drinks on one occasion: Never AUDIT-C Alcohol total score: 0 Non-prescribed substance use: denies use Caffeine: Yes (1 cup in am) How often does anyone, including family, friends and others, physically hurt you : never How often does anyone, including family, friends and others, insult or talk down to you: never How often does anyone, including family, friends and others, threaten you with harm: never How often does anyone, including family, friends and others, scream or curse at you: never service: No Exam Narrative: Exam Narrative: Constitutional: Appears well-developed and well-nourished. Alert. Conversant. Non toxic. Very pleasant and conversant. HENT: Head: Atraumatic. No depressed skull fracture, Raccoon Eyes, [place]'s sign, Face normal. Nose: Nose normal. Mouth/Throat: Oral mucosa is clear and moist. no trismus. Pharynx normal. Tonsils symmetric. No tonsillar enlargement, erythema, or exudate. Eyes: Conjunctivae normal. EOM normal. Pupils equal, round, and reactive to light. No scleral icterus. No JVD Neck: Normal range of motion. Neck supple. No tracheal deviation present. Cardiovascular: Normal rate, regular rhythm. No gallop. No friction rub. subtle murmur heard, likely from known mitral stenosis. Symmetric radial And DPartery pulses Pulmonary/Chest: Effort normal. No stridor. No respiratory distress. No wheezes. No rales. No rhonchi . No tenderness. Abdominal: Soft. no distension. No mass. No tenderness. No rebound. No guarding. Musculoskeletal: RUE: Normal range of motion. No tenderness. No deformity LUE: Normal range of motion. No tenderness. No deformity RLE: Normal range of motion. No edema. No tenderness. No deformity LLE: Normal range of motion. No edema. No tenderness. No deformity Neurological: Alert and oriented to person, place, and time. Normal strength. CN II-VII intact. No sensory deficit. GCS eye subscore is 4. GCS verbal subscore is 5. GCS motor subscore is 6. Normal coordination Skin: Skin is warm and dry. No rash noted. No pallor. Normal capillary refill. Psychiatric: Normal mood. Normal affect. Const: Vital Signs, click to edit/add: Vital Signs - 24 hr 12/19/24 10:20 12/19/24 11:02 12/19/24 11:15 Temperature 97.1 F L Pulse Rate 58 L 54 L Pulse Rate [Pulse Oximeter] 71 Respiratory Rate 18 16 22 Blood Pressure 176/80 H Blood Pressure [Ri ght Upper Arm] 174/69 H Pulse Oximetry 98 99 [facility] 12/19/24 11:45 12/19/24 12:00 12/19/24 12:05 Temperature Pulse Rate 51 L 49 L 50 L Pulse Rate [Pulse Oximeter] Respiratory Rate 8 L 20 22 Blood Pressure Blood Pressure [Ri ght Upper Arm] Pulse Oximetry 98 97 97 [facility] 12/[facility]/24 12:15 12/19/24 12:30 12/19/24 12:45 Temperature Pulse Rate 48 L 47 L Pulse Rate [Pulse Oximeter] Respiratory Rate 12 14 10 L Blood Pressure Blood Pressure [Ri ght Upper Arm] Pulse Oximetry 94 89 Oxygen Delivery Nd thod 12/19/24 13:00 12/19/24 13:05 12/19/24 13:15 Temperature Pulse Rate 49 L 49 L 47 L Pulse Rate [Pulse Oximeter] Respiratory Rate 11 L 11 L 13 Blood Pressure Blood Pressure [Ri ght Upper Arm] Pulse Oximetry 98 98 [facility] 12/[facility]/24 13:30 Temperature Pulse Rate 47 L Pulse Rate [Pulse Oximeter] Respiratory Rate 19 Blood Pressure 165/71 H Blood Pressure [Ri ght Upper Arm] Pulse Oximetry 99 Oxygen Delivery Me thod Room Air Course Vital Signs Vital signs: Initial Vital Signs Temperature 97.1 F L 12/19/24 10:20 Temperature Source Temporal Artery Scan 12/19/24 10:20 Pulse Rate 71 12/19/24 10:20 Respiratory Rate 18 12/19/24 10:20 Blood Pressure 174/69 H 12/19/24 10:20 Blood Pressure Mean 104 12/19/24 10:20 Blood Pressure Position Sitting 12/19/24 10:20 Pulse Oximetry 98 12/19/24 10:20 Oxygen Delivery Method Room Air 12/19/24 10:20 Vital Signs Temperature 97.1 F L 12/19/24 10:20 Pulse Rate 71 12/19/24 10:20 Respiratory Rate 18 12/19/24 10:20 Blood Pressure 174/69 H 12/19/24 10:20 Pulse Oximetry 98 12/19/24 10:20 Oxygen Delivery Method Room Air 12/19/24 10:20 Temperature 97.1 F L 12/19/24 10:20 Pulse Rate 47 L 12/19/24 13:30 Respiratory Rate 19 12/19/24 13:30 Blood Pressure 165/71 H 12/19/24 13:30 Pulse Oximetry 99 12/19/24 13:30 Oxygen Delivery Method Room Air 12/19/24 13:30 Medical Decision Making MDM Narrative Medical decision making narrative: This is a very pleasant 84-year-old female with a complex presentation to the ER. In a not shell she says she was sent here from her clinic to evaluate for AFib. 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 She has a history of paroxysmal AFib last year but is thought to be well controlled on amiodarone currently. When she gets AFib she typically has symptoms of dyspnea and she has not had any of that lately. However she has had to falls which she attributes to unsteadiness because she gets dizzy when she walks backwards. potential concern here is that these falls are not just unsteadiness but could have been triggered by temporary arrhythmias. The monitor here in the ER while the patient was present shows sinus rhythm. Laboratory workup shows mild anemia with a hemoglobin 11.6 but this is similar to her baseline. Most recent hemoglobin from July was slightly higher 13 but previous hemoglobins Right a similar level. Labs show renal insufficiency with a creatinine of 2.1 and a BUN of 43. This is at her baseline. Potassium mildly elevated at 5.6. Also similar to prior. At this point I do not think that she is having an acute hyperkalemic episode causing her 1st degree AV block. Consider other causes for her falls yesterday and last week such as worsening mitral stenosis or Intermittent episodes of AFib or intermittent in high- degree heart block. The patient does not want to stay in the hospital for heart monitoring or echo or further workup at this time. INR drawn in clinic this morning was 3.11. Discussed with the patient that at this point unclear for sure whether not she has been having paroxysmal AFib. She does not want any further workup at this time and is eager for discharge home. Lab Data Labs: Lab Results 12/19/24 12/19/24 Range/Units 10:50 11:16 WBC 7.69 (4.50-11.00) K/uL RBC 3.44 L (4.00-5.20) m/uL Hgb 11.9 L (12.0-16.0) gm/dL Hct 37.7 (33.0-51.0) % MCV 110 H (80-100) fL MCH 35 H (26-34) pg MCHC 32 (32-36) gm/dL RDW Coeff of [place] 14.0 (11.5-15.5) % Plt Count 156 (140-440) K/uL Neut % (Auto) 66.4 (42.0-72.0) % Lymph % (Auto) 23.5 (20-44) % [place] % (Auto) 8.3 (0.0-11.0) % Eos % (Auto) 1.2 (0.0-7.0) % Baso % (Auto) 0.3 (0.0-3.0) % Neut # (Auto) 5.11 (1.7-7.0) K/uL Lymph # (Auto) 1.81 (0.90-2.90) K/uL [place] # (Auto) 0.60 (0.00-0.90) K/UL Eos # (Auto) 0.09 (0.00-0.50) K/uL Baso # (Auto) 0.02 (0.00-0.30) K/uL Abs Immat Gran (auto) 0.02 (0.00-0.30) K/uL Imm/Tot Granulo (auto) 0.3 % Sodium 138 (135-149) mmol/L Potassium 5.6 H (3.6-5.1) mmol/L Chloride 108 (96-114) mmol/L Carbon Dioxide 19 L (20-32) mmol/L Anion Gap 11 (7-15) mEq/L BUN 43 H (7-30) mg/dL Creatinine 2.1 H (0.5-1.5) mg/dL Estimated Creat Clear 17.22 Estimated GFR 23 ml/min Glucose 92 (60-115) mg/dL Calcium 9.4 (8.4-10.6) mg/dL Magnesium 1.8 (1.5-2.6) mg/dL POC Troponin I 0.01 (0.01-0.04) ng/ml ECG Data Attestation: I personally reviewed and interpreted this ECG as follows: Interpretation: Normal sinus rhythmWith first-degree AV block Rate: 60 NV: 472 milliseconds QRS axis: normal axis. No pathologic Q-waves. ST segment/T wave: No ST segment elevation or depression. QTc: Four hundred ninety-eight Discharge Plan Discharge Clinical Impression: Falls Patient Disposition: Home, Self-Care Condition: Stable Instructions: Dizziness (ED), Fall Prevention (ED) Additional Instructions: as we discussed, please return to the emergency department right away if you have any concerning symptoms such as chest pain, shortness of breath, palpitations or any other problems. Even if you continue to feel well, please recheck with your regular doctor next week for repeat INR and lab check. Ask your regular doctor to arrange an echocardiogram Prescriptions: No Action allopurinol 100 mg tablet 200 mg PO QDAY acetaminophen 500 mg capsule 1,000 mg PO QHS PRN amiodarone 200 mg tablet 200 mg PO QDAY atorvastatin 40 mg tablet 40 mg PO .Bedtime Qty: 90 3RF furosemide 20 mg tablet 20 mg PO QAM Qty: 90 3RF omeprazole 20 mg capsule,delayed release(DR/EC) 20 mg PO DAILY Qty: 90 3RF spironolactone 25 mg tablet 12.5 mg PO DAILY Qty: 90 1RF metoprolol succinate 25 mg tablet extended release 24 hr 25 mg PO BID Qty: 180 3RF prednisone 1 mg tablet 2 mg PO DAILY levothyroxine 75 mcg tablet 75 mcg PO DAILY Qty: 90 3RF warfarin 2 mg tablet 2 mg PO 5XW Qty: 90 0RF Protocol: Dose Management Condition: Sunday Dose/Route: 0 mg Instruction: 0 tablets Condition: Sunday Dose/Route: 2 mg Instruction: 1 x 2 mg tablet Condition: Sunday Dose/Route: 2 mg Instruction: 1 x 2 mg tablet Condition: Sunday Dose/Route: 2 mg Instruction: 1 x 2 mg tablet Condition: Dose/Route: 2 mg Instruction: 1 x 2 mg tablet Condition: Sunday Dose/Route: 2 mg Instruction: 1 x 2 mg tablet Condition: Sunday Dose/Route: 0 mg Instruction: 0 tablets Protocol Text: Adjustment Start Date: Sunday12/19/24 INR Value: 3.11 INR Date: 12/19/24 Recheck Date: 01/18/25 Rx Instructions: Patient is to take one pill every , 1/2 tab Sat, no pills sunday Follow Up/Referrals: Tamera Newton MD [Primary Care Provider] - Stand Alone Forms: [employer] Info Instructions
[2024-12-19 11:19] LABS: Troponin, Point-of-Care* 0.01 ng/ml (0.01-0.04)
[2024-12-19 11:24] LABS: Basophils Absolute Auto 0.02 K/uL (0.00-0.30); Basophils Percent Auto 0.3 % (0.0-3.0); Eosinophils Absolute Auto 0.09 K/uL (0.00-0.50); Eosinophils Percent Auto 1.2 % (0.0-7.0); Hematocrit* 37.7 % (33.0-51.0); Hemoglobin* 11.9 gm/dL (12.0-16.0); Immature Granulocytes Abs Auto 0.02 K/uL (0.00-0.30); Immature Granulocytes Pct Auto 0.3 %; Lymphocytes Absolute Auto 1.81 K/uL (0.90-2.90); Lymphocytes Percent Auto 23.5 % (20-44); Mean Corpuscular HGB Conc 32 gm/dL (32-36); Mean Corpuscular Hemoglobin 35 pg (26-34); Mean Corpuscular Volume 110 fL (80-100); Monocytes Percent Auto 8.3 % (0.0-11.0); Neutrophils Absolute Auto 5.11 K/uL (1.7-7.0); Neutrophils Percent Auto 66.4 % (42.0-72.0); Platelet Count* 156 K/uL (140-440); Red Blood Count* 3.44 m/uL (4.00-5.20); White Blood Count* 7.69 K/uL (4.50-11.00)
--- OUTSIDE RECORDS SUMMARY | 2024-12-19 11:26 | XMS_ITS | Encounter Summary ---
Author Organization [facility] Address [address] [address] Care Team Providers Care Multiple Games Dealer Name Role Phone Clinician, Not Found MD Primary Care Provider Un available Encounter Details Date Type Department Care Team (Late st Contact Info) Description 11/18/2024 12:30 PM CDT Lab Visit [facility] [address] [place] [address] Chronic tophaceous gout; PMR (polymyalgia rheumatica) (HRC) [...] 02/17/2025 11:45 AM CDT Appointment Rheumatology at [facility] [place] [address] [address] [address] [place] [address] Denise Davila MD [address] [place], [place] [address] documented as of this encounter Procedures Procedure Name Priority Date/Time Associated Diagnosis Comments C-REACTIVE PROTEIN Routine 11/18/2024 12 :59 PM CDT PMR (polymyalgia rheumatica) (HRC) URIC ACID Routine 11/18/2024 12:59 PM CDT Chronic tophaceous gout SEDIMENTATION RATE (ESR) Routine 11/18/2024 12:59 PM CDT PMR (polymyalgia rheumatica) (HRC) documented in this encounter Results * (ABNORMAL) Sedimentation Rate (ESR) (11/18/2024 12:59 PM CDT) Pathologist [facility] Sedimentation Rate 25(H) 0 - 20 mm/hr 11/18/2024 1:34 PM CDT [facility] Blood Venipuncture / Unknown 11/18/2024 12:59 PM CDT 11/18/2024 12:59 PM CDT Denise Davila MD LAB_[email or web address] Final Result Performing Organization Address [facility]/ZIP Co de Phone Number [address] * C-Reactive Protein (11/18/2024 12:59 PM CDT) Pathologist [facility] C-Reactive Protein 0.4 0.0 - 0.5 mg/dL 11/18/2024 5:16 PM CDT [facility] Blood Venipuncture / Unknown 11/18/2024 12:59 PM CDT 11/18/2024 12:59 PM CDT Denise Davila MD LAB_1 Final Result [facility] [address] * Uric Acid (11/18/2024 12:59 PM CDT) Pathologist [facility] Uric Acid 3.6 2.6 - 6.0 mg/dL 11/18/2024 5:16 PM CDT [facility] Blood Venipuncture / Unknown 11/18/2024 12:59 PM CDT 11/18/2024 12:59 PM CDT us Denise Davila MD LAB_1 Final Result [facility] [address] [place] [address] documented in this encounter Visit Diagnoses Diagnosis 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
--- OUTSIDE RECORDS SUMMARY | 2024-12-19 11:26 | XMS_ITS | Encounter Summary ---
Author Organization [employer] Address [address] [place] [address] Care Team Providers Care Film Mounter Name Role Phone Clinician, Not Found Primary Care Provider Un available Reason for Visit * Reason Comments Follow-up Encounter Details Date Type Department Care Team (Late st Contact Info) Description 11/18/2024 11:45 AM CDT Office Visit Rheumatology at [facility] [place] [address] [place], [place] [phone] Denise Davila MD [address] [place], [place] [address] PMR (polymyalgia rheumatica) (HRC) (Primary Dx); Chronic [...] 11/18/2024 11:45 AM CDT Talk to front office specialist to put in Demographics that it is OK to call Moriah (Marti) if we need to and when we cannot get a hold of you. If the numbers are [phone] (or [phone]), it is from Inga Hernandes. documented in [...] 02/17/2025 11:45 AM CDT Appointment Rheumatology at [facility] [place] [address] [address] [address] [place], [place] [address] Denise Davila MD [address] [place], [place] [phone] documented as of this encounter Results * (ABNORMAL) Sedimentation Rate (ESR) (11/18/2024 12:59 PM CDT) Pathologist [facility] Sedimentation Rate 25(H) 0 - 20 mm/hr 11/18/2024 1:34 PM CDT [facility] Blood Venipuncture / Unknown 11/18/2024 12:59 PM CDT 11/18/2024 12:59 PM CDT Denise Davila MD LAB_1 Final Result Performing Organization Address [facility]/ZIP Co de Phone Number [facility] [address] [place] [phone], [facility] * C-Reactive Protein (11/18/2024 12:59 PM CDT) Pathologist [facility] C-Reactive Protein 0.4 0.0 - 0.5 mg/dL 11/18/2024 5:16 PM CDT [facility] Blood Venipuncture / Unknown 11/18/2024 12:59 PM CDT 11/18/2024 12:59 PM CDT Denise Davila MD LAB_1 Final Result Performing Organization Address City/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
--- OUTSIDE RECORDS SUMMARY | 2024-12-19 11:26 | XMS_ITS | Clinical Summary ---
Author Organization [employer] Address [address], [place] [address] Care Team Providers Care Servicenow Administrator Name Role Phone Clinician, Not Found MD Primary Care Provider Un available Source Comments You are receiving this document as you are listed as the primary care provider,follow-up provider, or the patient has been referred to you for consultation.This is in compliance with the Medicare and[facility] Cent[facility] EHR Incentive Program,which states Providers who transition their patient to another setting of careor provider of care or refers their patient to another provider of care shouldprovide summary care record for each transition of care or referral. [employer] Allergies Active Allergy Reactions Criticality Noted Date [...] hip fracture 08/19/2024 PMR (polymyalgia rheumatica) 01/15/2024 superintendent terminal 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 01/14 Persistent atrial fibrillation 01/15/2024 Chronic tophaceous gout 10/01/2020 Renal insufficiency 10/01/2020 Hyperuricemia 09/10/2020 S/P total knee arthroplasty, bilateral 8 S/P appendectomy 03/29/2018 Restless legs syndrome (RLS) 03/29/2018 Chronic left shoulder pain 03/29/2018 Psoriatic arthritis 03/29/2018 Sensorineural hearing loss 02/22/2005 Overview (04/04/2017): LW Onset: [id number] ; Hearing Loss Sensorineural Undiagnosed cardiac murmurs 02/22/2005 Overview (04/04/2017): LW Modifier: functional LW Onset: [id number] ; Heart Murmur Right bundle branch block 02/22/2005 Overview (03/16/2016): LW Onset: [id number] Obesity 05/04/2004 Overview (03/16/2016): LW Onset: [id number] Essential hypertension 01/17/2003 Overview (04/04/2017): Hypertension Hypothyroidism 01/17/2003 Overview (04/04/2017): Hypothyroidism Acquired Osteoarthritis 01/17/2003 Overview (04/04/2017): DJD Chronic kidney disease, stage 3b Encounters Date Type Department Care Team Description 11/19/2024 Telephone Rheumatology at [address] [place] [address] Denise Davila MD RESULTS, TEST 11/19/2024 Results Follow-Up Rheumatology at [address] [place] [address] Denise Davila MD 11/18/2024 12:30 PM CDT Lab Visit [address] [address] Chronic tophaceous gout; PMR (polymyalgia rheumatica) (HRC) 11/18/2024 11:45 AM CDT Office Visit Rheumatology at [facility] and [address] [address] Denise Davila MD PMR (polymyalgia rheumatica) (HRC) (Primary Dx); Chronic tophaceous gout; Osteoarthritis of multiple joints, unspecified osteoarthritis type; Stage 3 chronic kidney disease, unspecified whether stage 3a or 3b CKD (HRC) from Last 3 Months Immunizations Immunization Administration Dates Next Due Flu Vac Preserv Free (3+yrs) 04/21/2013, 04/28/2009,05/21/2006,2004,05/04/2004 Influenza IIV3 (Trivalent) F ramiro Highdose, 65+ Yrs (03685) 06/15/2020,07/01/2019,05/27/2018,2017,05/30/2017,05/15/2016,04/28/2014 Influenza IIV4 (Quadrivalent ) Fluad, 65+ [...] 35.9 C (96.6 F) 09/29/2022 9:47 AM INFORMATION TECHNOLOGY PROFESSOR Respiratory Rate - - Oxygen Saturation - [...] 02/17/2025 11:45 AM CDT Appointment Rheumatology at [facility] [address] [phone] Denise Davila MD [address] [place] [address] Health Maintenance Due Date Last Done Comments [...] VERT FX ASSESS Routine 06/24/2024 12:03 PM INFORMATION TECHNOLOGY PROFESSOR superintendent terminal 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 from Last 3 Months or Most Recently Relevant to Health Maintenance Results * C-Reactive Protein (11/18/2024 12:59 PM CDT) C-Reactive Protein 0.4 0.0 - 0.5 mg/dL 11/18/2024 5:16 PM CDT [facility] Blood Venipuncture / Unknown 11/18/2024 12:59 PM CDT 11/18/2024 12:59 PM CDT us Denise Davila MD LAB_1 Final Result Performing Organization Address [facility] de Phone Number [address] * Uric Acid (11/18/2024 12:59 PM CDT) Uric Acid 3.6 2.6 - 6.0 mg/dL 11/18/2024 5:16 PM CDT [facility] Blood Venipuncture / Unknown 11/18/2024 12:59 PM CDT 11/18/2024 12:59 PM CDT us Denise Davila MD LAB_1 Final Result Performing Organization Address City/[facility]/ZIP Co de Phone Number [address] * (ABNORMAL) Sedimentation Rate (ESR) (11/18/2024 12:59 PM CDT) Sedimentation Rate 25(H) 0 - 20 mm/hr 11/18/2024 1:34 PM CDT [facility] Blood Venipuncture / Unknown 11/18/2024 12:59 PM CDT 11/18/2024 12:59 PM CDT us Denise Davila MD LAB_1 Final Result [facility] [address] [place] [address], [facility] * DXA Bone Density Spine[employer] Vert FX Assess (06/24/2024 12:03 PM INFORMATION TECHNOLOGY PROFESSOR) DXA Hip Left Bone Mineral Density 0.704 [...] Radiographic Dayanna ging Narrative 06/27/2024 3:06 PM INFORMATION TECHNOLOGY PROFESSOR Table formatting from the original result was not included. Patient Name: Abimbola Samuels Densitometer: Drive [employer] W Appt Dept/Resource: [facility] Bone Density [...] trabecular bone, and is derived from the [id number] changes of bone density embedded in the [...] Recently Relevant to Health Maintenance Insurance MEDICARE relocality MEDICARE FOR LIFE Care Teams Servicenow Administrator Relationship Specialty Start Date End Date Clinician, Not Found, [place] [address] PCP - General 03/01/18
--- OUTSIDE RECORDS SUMMARY | 2024-12-19 11:26 | XMS_ITS | Encounter Summary ---
Author Organization [employer] Address [address] [place] [address] Care Team Providers Care Blocking Machine Operator Name Role Phone Clinician, Not Found MD Primary Care Provider Un available Encounter Details Date Type Department Care Team (Late Contact Info) Description 11/19/2024 Results Follow-Up Rheumatology at [address] [place] [address] Denise Davila MD [address] [place] [phone] Social History Tobacco Use Types Packs/Day Years [...] 02/17/2025 11:45 AM CDT Appointment Rheumatology at [facility] and Specialty [address] [address] Denise Davila MD [address] [place], [place] [address] [place] [address] documented as of this encounter Visit Diagnoses Not on filedocumented in this encounter Care Teams Blocking Machine Operator Relationship Specialty Start Date End Date Clinician, Not Found, [place] [address] PCP - General 03/01/18 documented as of this encounter
--- OUTSIDE RECORDS SUMMARY | 2024-12-19 11:26 | XMS_ITS | Clinical Summary ---
Author Organization [email or web address] [facility] Address [address] [place] [address] Care Team Providers Care Integrated Marketing Specialist Name Role Phone Tamera Newton MD Primary [...] branch block 02/22/2005 Overview (05/07/2024): LW Onset: [id number] Hypertension Hypothyroidism Hypercholesteremia HLD (hyperlipidemia) Neuropathy Rheumatoid [...] on file Legal Sex Female 5:27 AM CAR DROPPER Gender Identity Not on file Sexual Orientation Not on file Obstetrics History Last Filed Vital Signs Vital Sign Reading Time Taken Comments Blood Pressure 172/84 07/16/2024 11:19 AM CAR DROPPER Pulse 63 07/16/2024 11:19 AM CAR DROPPER Temperature 36.4 C (97.6 F) 05/16/2024 9:31 AM CDT Respiratory Rate 16 05/16/2024 9:31 AM CDT Oxygen Saturation 96% 07/16/2024 11:19 AM CAR DROPPER Inhaled Oxygen Concentration - - Weight 66.2 kg (146 lb) 06/17/2024 2:24 PM CAR DROPPER Height 162.6 cm (5' 4) 05/12/2024 6:00 [...] 09/24/2019, 03/26/2009 Medical Devices Implanted Type Area Hospice Bereavement Coordinator Device Identifier Shelf Expiration Date Model / Serial / Lot Simplex P Bone Cement - Half Dose Implanted:Qty: 2 on 10/18/2021 by Kevin Hogue MD at [facility] Left: Knee [employer] 07/12/2023 / 6188-1-001 / [id number] [employer] Femoral Posterior Augment Implanted:Qty: 1 on 10/18/2021 by Kevin Hogue MD at [facility] Left: Knee [employer] 06/01/2025 / 5543-A-400 / [id number] Simplex P Bone Cement Full Dose Implanted:Qty: 2 on 10/18/2021 by Kevni Hogue MD at [facility] Left: Knee [employer] 09/12/2023 / 6191-1-001 / [id number] [employer]lon Fluted Stem - Tibia Implanted:Qty: 1 on 10/18/2021 by Kevin Hogue MD at [facility] Left: Knee [employer] 10/09/2025 / [id number]-[id number] / [id number] [employer] Tritanium Tibial Symmetric Cone Augment Implanted:Qty: 1 on 10/18/2021 by Kevin Hogue MD at [facility] Left: Knee [employer] 05/04/2026 / 5549-A-130 / [id number] [employer]lon Total Knee [place] Tibial Baseplate Implanted:Qty: 1 on 10/18/2021 by Kevin Hogue MD at [facility] Left: Knee [employer] 12/19/2025 / 5521-B-400 / [id number] [employer] Fluted Stem - Femur Implanted:Qty: 1 on 10/18/2021 by Kevin Hogue MD at [facility] Left: Knee [employer] 06/15/2025 / [id number]-[id number] / [id number] [employer] Total Stabilizer Femoral Component Implanted:Qty: 1 on 10/18/2021 by Kevin Hogue MD at [facility] Left: Knee [employer] 01/16/2026 / [id number]-F-[id number] / [id number] [employer] X3 Total Stablizer+ Tibial Insert Implanted:Qty: 1 on 10/18/2021 by Kevin Hogue MD at [facility] Left: Knee [employer] 08/31/2026 / [id number]-G-[id number] -E / [id number] [employer] Femoral Posterior Augment Implanted:Qty: 1 on 10/18/2021 by Kevin Hogue MD at [facility] Left: Knee [employer] 09/05/2025 / 5543-A-400 / [id number] Insurance MEDICARE PB ONLY [facility] MEDICARE PART B HB ONLY MEDICARE PART A HB ONLY MEDICARE PROVIDER BASED FOR LIFE Advance Directives Documents on File Type Date Recorded Patient Terrazzo Mechanic Expl anation Healthcare Directive 10/20/2021 8:51 AM [...] Code Status Discussion: Reviewed Preferences Care Teams Integrated Marketing Specialist Relationship Specialty Start Date End Date Tamera Newton MD [address] [place] [address] PCP - General Family Practice 10/24/23
--- OUTSIDE RECORDS SUMMARY | 2024-12-19 11:26 | XMS_ITS | Encounter Summary ---
Author Organization [employer] Address [address], [place] [address] Care Team Providers Care Installment Loan Collector Name Role Phone Clinician, Not Found Primary Care Provider Un available Reason for Visit * Reason Comments RESULTS, TEST Encounter Details Date Type Department Care Team (Late st Contact Info) Description 11/19/2024 Telephone Rheumatology at [place] [address] [place] [address]. [place], [place] [phone] Denise Davila MD [address] [place] [phone] RESULTS, TEST Social History Tobacco Use Types [...] 02/17/2025 11:45 AM CDT Appointment Rheumatology at [facility] [address] [phone] Denise Davila MD [address] [place], [place] [address] documented as of this encounter Visit Diagnoses Not on filedocumented in this encounter Care Teams Installment Loan Collector Relationship Specialty Start Date End Date Clinician, Not Found, [place] [address] PCP - General 03/01/18 documented as of this encounter
[2024-12-19 11:36] LABS: Chloride* 108 mmol/L (96-114)
[2024-12-19 11:37] LABS: Potassium* 5.6 mmol/L (3.6-5.1); Slide Review Reflex No; Sodium* 138 mmol/L (135-149)
[2024-12-19 11:40] LABS: Anion Gap 11 mEq/L (7-15); Blood Urea Nitrogen* 43 mg/dL (7-30); Calcium* 9.4 mg/dL (8.4-10.6); Carbon Dioxide* 19 mmol/L (20-32); Creatinine* 2.1 mg/dL (0.5-1.5); Est. Creatinine Clearance* 17.22; Estimated Glomerular Filt Rate 23 ml/min; Glucose* 92 mg/dL (60-115); Magnesium* 1.8 mg/dL (1.5-2.6)
== END 2024-12-19 13:51 | disposition home or self-care (01) ==
PROVIDERS: Emergency Provider Emergency Medicine; PCP Family Medicine
DX: R55 Syncope and collapse (principal); W19.XXXA Unspecified fall, initial encounter
CPT/HCPCS: 36415; 80048; 83735; 84484; 85025; 93005; 99283; 99284

== ENCOUNTER 2024-12-26 14:41 | Outpatient (CLI) | payer MEDICARE, OTHER, SELFPAY | END 2024-12-26 14:42 | disposition home or self-care (01) | LOC: NFLDREF 14:44 | PROVIDERS: PCP Family Medicine; Visit Provider Family Medicine | DX: I12.9 Hypertensive chronic kidney disease with stage 1 through stage 4 chronic kidney disease, or unspecified chronic kidney disease (principal); N18.9 Chronic kidney disease, unspecified; I48.20 Chronic atrial fibrillation, unspecified; Z79.01 Long term (current) use of anticoagulants | CPT/HCPCS: 80053; 85610 ==

== ENCOUNTER 2024-12-26 18:29 | Inpatient (IN) | payer MEDICARE, OTHER, SELFPAY ==
[2024-12-26] VITALS (18 sets, daily range): BP systolic 145–186; BP diastolic 56–83; PULSE 48–62; RESP 13–26; TEMP 36.2–36.5; O2SAT 93–98; BMI 24.9; BMI 25.7
--- NOTE | 2024-12-26 19:27 | ED_ITS ---
HPI - General Adult General Date Seen: 01/14/25 Chief complaint: Unspecified Complaint, Adult Stated complaint: high potassium/doctor referral Time Seen by Provider: 12/26/24 18:54 History of Present Illness HPI narrative: Patient is a very pleasant 84-year-old woman who comes in at the recommendation of the clinic after labs being drawn earlier today when she was at a follow-up visit. She was in the ER week ago also with the recommendation of the clinic when she had gone in for a lab draw, mentioned some falls, and was sent here to rule out AFib. She was found to be in sinus at that time, did not want any significant workup and was sent home. She went to clinic today to follow-up that visit. She had blood drawn and was noted to have a potassium of 6.3. She does have chronic renal insufficiency with a baseline creatinine of around 2. This is unchanged. She tells me that she has really been feeling fine, her primary concern and going to clinic today was her chronic hip pain but she says that was not really addressed. She has seen orthopedics for that, she has been told it is bursitis, says that they told her if she wanted an injection would require hospital stay and a small incision, she says she would rather just suffer with a because she does not want to come into the hospital again. Overall, she does not have any specific complaints. She has been feeling fine aside from hip. She does note that she has a prescription for Lasix but only takes it when she has swelling in her legs, says she has not taken that for months. She has spironolactone listed on her med list, she has no idea what she takes for medications but as far as I can tell she continues to be prescribed that medication. Related Data Home Medications ?Medication ?Instructions ?Recorded ?Confirmed allopurinol 100 mg tablet 200 mg PO QDAY 10/02/22 12/26/24 acetaminophen 500 mg capsule 1,000 mg PO QHS PRN 01/31/24 12/26/24 prednisone 1 mg tablet 2 mg PO DAILY 02/25/24 12/26/24 amiodarone 200 mg tablet 200 mg PO QDAY 08/12/24 12/26/24 Previous Rx's ?Medication ?Instructions ?Recorded atorvastatin 40 mg tablet 40 mg PO .Bedtime #90 tabs 08/12/24 furosemide 20 mg tablet 20 mg PO QAM edema #90 tabs 08/12/24 metoprolol succinate 25 mg 25 mg PO BID #180 tabs 08/12/24 tablet,extended release 24 hr omeprazole 20 mg capsule,delayed 20 mg PO DAILY #90 caps 08/12/24 release spironolactone 25 mg tablet 12.5 mg (1/2 x 25 mg) PO DAILY #90 08/12/24 tabs levothyroxine 75 mcg tablet 75 mcg PO DAILY #90 tabs 09/05/24 warfarin 2 mg tablet 2 mg PO 5XW #90 tabs 11/24/24 Allergies Allergy/AdvReac Type Severity Reaction Status Date / Time propoxyphene Allergy Severe Weakness Verified 12/26/24 18:52 [facility] Medical History (Updated 12/26/24 @ 20:37 by Anca Edwards MD) Balance problem ?R26.89 - Other abnormalities of gait and mobility (ICD-10) Idiopathic peripheral neuropathy (04/21/13) ?G60.9 - Hereditary and idiopathic neuropathy, unspecified (ICD-10) Abdominal pain, right lateral ?R10.9 - Unspecified abdominal pain (ICD-10) Polymyalgia rheumatica (11/30/23) ?M35.3 - Polymyalgia rheumatica (ICD-10) Chronic kidney disease ?N18.9 - Chronic kidney disease, unspecified (ICD-10) Chronic atrial fibrillation (11/2023) ?I48.20 - Chronic atrial fibrillation, unspecified (ICD-10) Mitral valve stenosis, severe ?I05.0 - Rheumatic mitral stenosis (ICD-10) Chronic HFrEF (heart failure with reduced ejection fraction) ?I50.22 - Chronic systolic (congestive) heart failure (ICD-10) Cardiomyopathy ?I42.9 - Cardiomyopathy, unspecified (ICD-10) Thrombus of left atrial appendage (01/2024) ?I51.3 - Intracardiac thrombosis, not elsewhere classified (ICD-10) Weight loss (~11/2022) ?R63.4 - Abnormal weight loss (ICD-10) Elevated CK ?R74.8 - Abnormal levels of other serum enzymes (ICD-10) Shoulder pain, bilateral ?M25.511 - Pain in right shoulder (ICD-10) ?M25.512 - Pain in left shoulder (ICD-10) Diarrhea (01/07/23) ?R19.7 - Diarrhea, unspecified (ICD-10) Eczema ?L30.9 - Dermatitis, unspecified (ICD-10) GERD (gastroesophageal reflux disease) ?K21.9 - Gastro-esophageal reflux disease without esophagitis (ICD-10) Normal coronary angiogram Rheumatoid arthritis (2008) ?M06.9 - Rheumatoid arthritis, unspecified (ICD-10) Restless legs syndrome ?G25.81 - Restless legs syndrome (ICD-10) Hypothyroidism ?E03.9 - Hypothyroidism, unspecified (ICD-10) Hypertension ?I10 - Essential (primary) hypertension (ICD-10) Hyperlipidemia (03/26/09) ?E78.5 - Hyperlipidemia, unspecified (ICD-10) Surgical History (Updated 11/18/24 @ 12:37 by Angi Ramsey) History of bunionectomy of left great toe (07/02/97) ?Z98.890 - Other specified postprocedural states (ICD-10) History of bunionectomy of right great toe (11/28/89) ?Z98.890 - Other specified postprocedural states (ICD-10) History of foot surgery (03/17/15) ?Z98.890 - Other specified postprocedural states (ICD-10) Hx of foot surgery (05/13/24) ?Z98.890 - Other specified postprocedural states (ICD-10) History of cardioversion (03/25/24) ?Z92.89 - Personal history of other medical treatment (ICD-10) History of transesophageal echocardiography (RAMEZ) (01/24/24) ?Z92.89 - Personal history of other medical treatment (ICD-10) History of endoscopy (03/20/23) ?Z98.890 - Other specified postprocedural states (ICD-10) 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) ?Z96.651 - Presence of right artificial knee joint (ICD-10) History of revision of total knee arthroplasty (~10/19/21) ?Z96.659 - Presence of unspecified artificial knee joint (ICD-10) History of total left knee replacement (1999) ?Z96.652 - Presence of left artificial knee joint (ICD-10) History of total right knee replacement (08/07/95) ?Z96.651 - Presence of right artificial knee joint (ICD-10) H/O hysterectomy with oophorectomy (1972) H/O lumpectomy (1972) ?Z98.890 - Other specified postprocedural states (ICD-10) H/O cataract extraction (~2013) ?Z98.49 - Cataract extraction status, unspecified eye (ICD-10) H/O foot surgery (11/26/17) ?Z98.890 - Other specified postprocedural states (ICD-10) History of tonsillectomy (1944) ?Z90.89 - Acquired absence of other organs (ICD-10) History of appendectomy (1956) ?Z90.49 - Acquired absence of other specified parts of digestive tract (ICD- 10) Family History Brother Cancer of kidney, Onset Age: 57 Mother Stroke, Onset Age: 87 Father Myocardial infarction Heart disease, Onset Age: 78 Sister Stroke, Onset Age: 85 Cancer of kidney Brother Cancer of kidney, Onset Age: 76 Social History Narrative: , 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, 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 former smoker-quit around 1969 3 alcoholic drinks a week No formal exercise but cleans house uses stairs regularly What is your current living situation?: I presently have a place to live Problems where you live: no known problems Problems where you live details: none In the past 12 months, utilities in danger of being shut off: no In past 12 months, lack of transportation kept you from medical appts, meetings, work, or getting things needed for daily living: no In the past 12 mos, have been you worried that your food would run out before you had money to buy more?: never true In the past 12 mos, the food you bought just didn't last and you didn't have money to buy more?: never true Highest level of school completed/degree received: Bachelor's degree Smoking Status: Former smoker What tobacco products do you use: cigarettes Smoking quit date/years: >15 years ago Do you use any of these nicotine containing products: None Second hand tobacco smoke exposure: No How often do you have a drink containing alcohol: never How many standard drinks containing alcohol do you have on a typical day: 1 or 2 How often do you have six or more drinks on one occasion: Never AUDIT-C Alcohol total score: 0 Non-prescribed substance use: denies use Caffeine: Yes (1 cup in am) How often does anyone, including family, friends and others, physically hurt you : never How often does anyone, including family, friends and others, insult or talk down to you: never How often does anyone, including family, friends and others, threaten you with harm: never How often does anyone, including family, friends and others, scream or curse at you: never service: No Exam Narrative: Exam Narrative: Vital signs reviewed In general, alert, nontoxic Head: Normocephalic, atraumatic. Eyes: Sclera clear. Pupils equal and reactive. ENT: Mucous membranes moist. Neck: Supple without adenopathy. Heart: Regular rate and rhythm without murmur. Lungs: Clear. No increased work of breathing, crackles or wheezes. Abdomen: Soft, nontender to palpation. Extremities: Well perfused, pulses intact. No significant edema. Neurologic: Alert, conversant. Speech fluent, face symmetric. Moves all extremities equally. Skin: Warm, dry well perfused. Affect: Normal. Const: Vital Signs, click to edit/add: Vital Signs - 24 hr 12/26/24 18:43 12/26/24 19:00 12/26/24 19:39 Temperature 97.2 F L Pulse Rate 56 L Pulse Rate [Right Pulse Oximeter] 59 L Respiratory Rate 18 16 Blood Pressure Blood Pressure [Ri ght Upper Arm] 186/82 H Pulse Oximetry 97 95 93 Oxygen Delivery Me thod Room Air 12/26/24 19:41 12/26/24 19:45 12/26/24 20:00 Temperature Pulse Rate 52 L 51 L 57 L Pulse Rate [Right Pulse Oximeter] Respiratory Rate 19 26 H 16 Blood Pressure 157/60 H Blood Pressure [Ri ght Upper Arm] Pulse Oximetry 94 95 97 Oxygen Delivery Me thod 12/26/24 20:21 12/26/24 20:22 12/26/24 20:23 Temperature Pulse Rate 57 L 62 61 Pulse Rate [Right Pulse Oximeter] Respiratory Rate 23 24 20 Blood Pressure 151/69 H Blood Pressure [Ri ght Upper Arm] Pulse Oximetry 96 98 97 Oxygen Delivery Me thod 12/26/24 20:30 12/26/24 20:31 12/26/24 20:45 Temperature Pulse Rate 57 L 55 L 56 L Pulse Rate [Right Pulse Oximeter] Respiratory Rate 17 26 H 13 Blood Pressure 169/83 H Blood Pressure [Ri ght Upper Arm] Pulse Oximetry 97 97 96 Oxygen Delivery Me thod 12/26/24 21:00 12/26/24 21:02 Temperature Pulse Rate 57 L 57 L Pulse Rate [Right Pulse Oximeter] Respiratory Rate 24 23 Blood Pressure 181/71 H Blood Pressure [Ri ght Upper Arm] Pulse Oximetry 96 95 Oxygen Delivery Me thod Course Course ED Course: Will draw some blood, will confirm hyperkalemia as she does seem to be a difficult stick and it is possible there is a component of hemolysis here. She does not have any complaints. EKG is pending. EKG shows a sinus rhythm, first-degree AV block with a [place] of 456 milliseconds. Right bundle-branch block. No significant change compared to December 19 of this year. Also her labs came back, did confirm that her potassium is elevated at 6.2, she is acidotic with a pH of 7.218, her bicarb is 17 consistent with metabolic acidosis. PCO2 is 42. Sodium is 140, CO2 16, BUN is 48 and creatinine is 2.3. Magnesium 1.9. Phosphorus is pending. Hemoglobin is 13.2, normal platelets and normal white blood cell count. I discussed all these findings with her and she is agreeable to staying in the hospital to correct some of this. I have ordered a sodium bicarb drip, Lasix 40 mg IV as well as Lokelma. Case discussed with Dr. Swartz, accepted to the hospital service. Vital Signs Vital signs: Initial Vital Signs Temperature 97.2 F L 12/26/24 18:43 Temperature Source Temporal Artery Scan 12/26/24 18:43 Pulse Rate 59 L 12/26/24 18:43 Pulse Rhythm Regular 12/26/24 18:43 Pulse Strength 3+ Normal 12/26/24 18:43 Respiratory Rate 18 12/26/24 18:43 Blood Pressure 186/82 H 12/26/24 18:43 Blood Pressure Mean 116 H 12/26/24 18:43 Blood Pressure Position Sitting 12/26/24 18:43 Pulse Oximetry 97 12/26/24 18:43 Oxygen Delivery Method Room Air 12/26/24 18:43 Vital Signs Temperature 97.2 F L 12/26/24 18:43 Pulse Rate 59 L 12/26/24 18:43 Respiratory Rate 18 12/26/24 18:43 Blood Pressure 186/82 H 12/26/24 18:43 Pulse Oximetry 97 12/26/24 18:43 Oxygen Delivery Method Room Air 12/26/24 18:43 Temperature 97.2 F L 12/26/24 18:43 Pulse Rate 54 L 12/26/24 21:15 Respiratory Rate 22 12/26/24 21:15 Blood Pressure 181/71 H 12/26/24 21:02 Pulse Oximetry 95 12/26/24 21:15 Oxygen Delivery Method Room Air 12/26/24 18:43 Medications Administered Medications: Generic Name Dose Route Start Last Admin Trade Name Freq PRN Reason Stop Dose Admin Sodium Bicarbonate 150 meq/ 1,150 mls @ 150 mls/hr 12/26/24 20:15 12/26/24 20:55 Dextrose IV 150 mls/hr .[id number] ETHAN Administration Discontinued Medications Generic Name Dose Route Start Last Admin Trade Name Freq PRN Reason Stop Dose Admin Furosemide 40 mg 12/26/24 20:11 12/26/24 20:54 Furosemide 10 Mg/Ml Inj IVP 12/26/24 20:12 40 mg ONCE ONE Administration Sodium Zirconium Cyclosilicate 10 gm 12/26/24 20:11 12/26/24 20:55 Sodium Zirconium Cyclosilicate 10 Gm PO 12/26/24 20:12 10 gm ONCE ONE Administration Medical Decision Making Lab Data Labs: Lab Results 12/26/24 12/26/24 Range/Units 19:25 19:50 WBC 11.10 H (4.50-11.00) K/uL RBC 3.82 L (4.00-5.20) m/uL Hgb 13.2 (12.0-16.0) gm/dL Hct 41.7 (33.0-51.0) % MCV 109 H (80-100) fL MCH 35 H (26-34) pg MCHC 32 (32-36) gm/dL RDW Coeff of [place] 14.4 (11.5-15.5) % Plt Count 180 (140-440) K/uL Neut % (Auto) 72.1 H (42.0-72.0) % Lymph % (Auto) 20.4 (20-44) % [place] % (Auto) 5.8 (0.0-11.0) % Eos % (Auto) 0.5 (0.0-7.0) % Baso % (Auto) 0.2 (0.0-3.0) % Neut # (Auto) 8.00 H (1.7-7.0) K/uL Lymph # (Auto) 2.30 (0.90-2.90) K/uL [place] # (Auto) 0.60 (0.00-0.90) K/UL Eos # (Auto) 0.10 (0.00-0.50) K/uL Baso # (Auto) 0.00 (0.00-0.30) K/uL Abs Immat Gran (auto) 0.10 (0.00-0.30) K/uL Imm/Tot Granulo (auto) 1.0 % VBG pH 7.218 L* (7.32-7.43) VBG pCO2 42 (40-50) mmHG VBG pO2 34.2 (25-47) mmHG VBG HCO3 17 L (21-28) mmol/L Sodium 140 (135-149) mmol/L Potassium 6.2 H* (3.6-5.1) mmol/L Chloride 113 (96-114) mmol/L Carbon Dioxide 16 L (20-32) mmol/L Anion Gap 11 (7-15) mEq/L BUN 48 H (7-30) mg/dL Creatinine 2.3 H (0.5-1.5) mg/dL Estimated Creat Clear 15.72 Estimated GFR 20 ml/min Glucose 101 (60-115) mg/dL Uric Acid 3.4 (2.2-8.4) mg/dL Calcium 9.6 (8.4-10.6) mg/dL Phosphorus 4.5 (2.5-4.5) mg/dL Magnesium 1.9 (1.5-2.6) mg/dL Lab Acknowledgement Test Added Discharge Plan Discharge Clinical Impression: Acute hyperkalemia, Chronic kidney disease (CKD), Acidosis Patient Disposition: Admitted As Observation Condition: Stable Activity Level: No Restrictions Discharge Diet: Regular
[2024-12-26 19:35] LABS: HCO3 VBG 17 mmol/L (21-28); PCO2 VBG 42 mmHG (40-50); PO2 VBG 34.2 mmHG (25-47)
[2024-12-26 19:39] LABS: Basophils Percent Auto 0.2 % (0.0-3.0); Eosinophils Percent Auto 0.5 % (0.0-7.0); Hematocrit 41.7 % (33.0-51.0); Hemoglobin* 13.2 gm/dL (12.0-16.0); Lymphocytes Percent Auto 20.4 % (20-44); Mean Corpuscular HGB Conc 32 gm/dL (32-36); Mean Corpuscular Hemoglobin 35 pg (26-34); Mean Corpuscular Volume 109 fL (80-100); Monocytes Percent Auto 5.8 % (0.0-11.0); Neutrophils Percent Auto 72.1 % (42.0-72.0); Platelet Count* 180 K/uL (140-440); RDW Coefficient of Variation % 14.4 % (11.5-15.5); Red Blood Count 3.82 m/uL (4.00-5.20)
[2024-12-26 19:42] LABS: pH VBG 7.218 (7.32-7.43)
[2024-12-26 19:43] LABS: Slide Review Reflex No
[2024-12-26 19:55] LABS: Chloride* 113 mmol/L (96-114); Sodium* 140 mmol/L (135-149)
[2024-12-26 19:58] LABS: Anion Gap 11 mEq/L (7-15); Blood Urea Nitrogen* 48 mg/dL (7-30); Carbon Dioxide* 16 mmol/L (20-32); Creatinine* 2.3 mg/dL (0.5-1.5); Est. Creatinine Clearance* 15.72; Estimated Glomerular Filt Rate 20 ml/min
[2024-12-26 19:59] LABS: Calcium* 9.6 mg/dL (8.4-10.6); Glucose* 101 mg/dL (60-115); Magnesium* 1.9 mg/dL (1.5-2.6)
[2024-12-26 20:10] LABS: Potassium* 6.2 mmol/L (3.6-5.1)
[2024-12-26 20:43] LABS: Phosphorus* 4.5 mg/dL (2.5-4.5)
[2024-12-26] MEDS: FUROSEMIDE 10 MG/ML inj 40 MG IVP (20:54)
[2024-12-26] MEDS: SODIUM ZIRCONIUM CYCLOSILICATE 10 GM PO (20:55)
[2024-12-26 21:26] LABS: Uric Acid* 3.4 mg/dL (2.2-8.4)
--- NOTE | 2024-12-26 21:50 | P.IMHP_ITS ---
Assessment and Plan Assessment and plan (1) Acute on chronic kidney failure: Problem comment: Hospitalized with this in February 2024 and now again in December 2024 Creatinine 02/25/2024 was 2.9. By March 07 it improved to 1.2. Between July 2024 and today it is fluctuated between 2.0 and 2.3 urinalysis on 02/25/2024 appears benign Potassium in February 2024 was 5.7 and improved to 4.5 and is now increased to 6.3. CO2 in February 2024 was as low as 15 and improved to the 20s and now down to 16. Status: Resolved (2) Acute hyperkalemia: Problem comment: Tonight will receive IV furosemide and Lokelma. Tomorrow initiate oral furosemide at 40 mg a day. Follow potassium and further medication management may be necessary. Needs nephrology follow-up Status: Resolved (3) Polymyalgia rheumatica: Problem comment: Civil Engineering Project Manager Inga Tinajero shannan -02/25/2024: Patient has been on a tapering dose of prednisone for number of months and is currently on 1 mg daily. I did not institute any stress doses of prednisone at this time. Status: Chronic (4) Rheumatoid arthritis: Status: Inactive (5) Paroxysmal atrial fibrillation: Problem comment: Currently in sinus rhythm. Well managed with amiodarone, metoprolol and warfarin. I reduced metoprolol due to her heart rate being mostly in the 50s Status: Acute (6) Cognitive impairment: Problem comment: Seems quite forgetful about recent past medical history. Living independently with her who has even greater cognitive deficits. Further evaluation is warranted Status: Acute (7) Peripheral neuropathy: Status: Acute (8) Mitral valve stenosis, severe: Problem comment: August 2024 manufacturing software engineer recommended no valvular surgery due to frailty and comorbidities Status: Chronic Plan Patient is admitted to the hospital with severe hyperkalemia and metabolic acid osis from acute on chronic kidney failure. I do not at this time see a clear trigger for acute worsening of her renal failure. Will attempt to manage this medically. Does need relatively urgent nephrology evaluation and treatment. Patient is open to the possibility of dialysis after discussion today. Total Time Spent Total Time Spent: Total time spent today is 90 minutes in coordination of care, review of outside records, discussion with patient and other providers ongoing management of acute on chronic renal failure Hospitalist- H&P: SABRINA History of Present Illness Date Seen: 12/26/24 Chief complaint: high potassium/doctor referral Narrative: Abimbola Samuels is a 84 year old female with heart failure, chronic kidney disease, polymyalgia rheumatica sent to the emergency room by primary care for hyperkalemia. She had a clinic visit today and blood tests were done including a potassium of 6.3, a CO2 of 16 and a creatinine of 2.3. She was referred to the emergency room for this. She has been asymptomatic with this. Patient is unaware of a history of problems with chronic kidney disease or hyperkalemia but these were diagnosed when she was hospitalized in February of 2024. Since her hospitalization in February of 2024 she has had consistent hyperkalemia with a potassium between 5 and 5.6 and a creatinine around 2 with a creatinine clearance around 16. She is not aware that she has had medication adjustments to address this problem. She has not been referred to Nephrology for medical management or renal replacement therapy. In reviewing the notes I see that she was on lisinopril which was stopped in February. Spironolactone was continued after that hospitalization however. Her records indicate she has been on furosemide 20 mg daily but she tells me she only takes it as needed for ankle swelling which is typically a couple times a week. She is known to have paroxysmal atrial fibrillation but has recently been primarily in sinus rhythm. She does have severe mitral stenosis but the manufacturing software engineer felt that she was not a good candidate for mitral valve surgery. She reports currently she has no unusual dyspnea. She is not having any chest pain or palpitations. [facility] Medical History (Updated 12/26/24 @ 22:14 by Vu Swartz MD) Peripheral neuropathy ?G62.9 - Polyneuropathy, unspecified (ICD-10) Paroxysmal atrial fibrillation ?I48.0 - Paroxysmal atrial fibrillation (ICD-10) Acute on chronic kidney failure ?N17.9 - Acute kidney failure, unspecified (ICD-10) ?N18.9 - Chronic kidney disease, unspecified (ICD-10) Balance problem ?R26.89 - Other abnormalities of gait and mobility (ICD-10) Idiopathic peripheral neuropathy (04/21/13) ?G60.9 - Hereditary and idiopathic neuropathy, unspecified (ICD-10) Abdominal pain, right lateral ?R10.9 - Unspecified abdominal pain (ICD-10) Polymyalgia rheumatica (11/30/23) ?M35.3 - Polymyalgia rheumatica (ICD-10) Chronic kidney disease ?N18.9 - Chronic kidney disease, unspecified (ICD-10) Chronic atrial fibrillation (11/2023) ?I48.20 - Chronic atrial fibrillation, unspecified (ICD-10) Mitral valve stenosis, severe ?I05.0 - Rheumatic mitral stenosis (ICD-10) Chronic HFrEF (heart failure with reduced ejection fraction) ?I50.22 - Chronic systolic (congestive) heart failure (ICD-10) Cardiomyopathy ?I42.9 - Cardiomyopathy, unspecified (ICD-10) Thrombus of left atrial appendage (01/2024) ?I51.3 - Intracardiac thrombosis, not elsewhere classified (ICD-10) Weight loss (~11/2022) ?R63.4 - Abnormal weight loss (ICD-10) Elevated CK ?R74.8 - Abnormal levels of other serum enzymes (ICD-10) Shoulder pain, bilateral ?M25.511 - Pain in right shoulder (ICD-10) ?M25.512 - Pain in left shoulder (ICD-10) Diarrhea (01/07/23) ?R19.7 - Diarrhea, unspecified (ICD-10) Eczema ?L30.9 - Dermatitis, unspecified (ICD-10) GERD (gastroesophageal reflux disease) ?K21.9 - Gastro-esophageal reflux disease without esophagitis (ICD-10) Normal coronary angiogram Rheumatoid arthritis (2008) ?M06.9 - Rheumatoid arthritis, unspecified (ICD-10) Restless legs syndrome ?G25.81 - Restless legs syndrome (ICD-10) Hypothyroidism ?E03.9 - Hypothyroidism, unspecified (ICD-10) Hypertension ?I10 - Essential (primary) hypertension (ICD-10) Hyperlipidemia (03/26/09) ?E78.5 - Hyperlipidemia, unspecified (ICD-10) Surgical History History of bunionectomy of left great toe (07/02/97) ?Z98.890 - Other specified postprocedural states (ICD-10) History of bunionectomy of right great toe (11/28/89) ?Z98.890 - Other specified postprocedural states (ICD-10) History of foot surgery (03/17/15) ?Z98.890 - Other specified postprocedural states (ICD-10) Hx of foot surgery (05/13/24) ?Z98.890 - Other specified postprocedural states (ICD-10) History of cardioversion (03/25/24) ?Z92.89 - Personal history of other medical treatment (ICD-10) History of transesophageal echocardiography (RAMEZ) (01/24/24) ?Z92.89 - Personal history of other medical treatment (ICD-10) History of endoscopy (03/20/23) ?Z98.890 - Other specified postprocedural states (ICD-10) 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) ?Z96.651 - Presence of right artificial knee joint (ICD-10) History of revision of total knee arthroplasty (~10/19/21) ?Z96.659 - Presence of unspecified artificial knee joint (ICD-10) History of total left knee replacement (1999) ?Z96.652 - Presence of left artificial knee joint (ICD-10) History of total right knee replacement (08/07/95) ?Z96.651 - Presence of right artificial knee joint (ICD-10) H/O hysterectomy with oophorectomy (1972) H/O lumpectomy (1972) ?Z98.890 - Other specified postprocedural states (ICD-10) H/O cataract extraction (~2013) ?Z98.49 - Cataract extraction status, unspecified eye (ICD-10) H/O foot surgery (11/26/17) ?Z98.890 - Other specified postprocedural states (ICD-10) History of tonsillectomy (1944) ?Z90.89 - Acquired absence of other organs (ICD-10) History of appendectomy (7) ?Z90.49 - Acquired absence of other specified parts of digestive tract (ICD- 10) Family History Brother Cancer of kidney, Onset Age: 57 Mother Stroke, Onset Age: 87 Father Myocardial infarction Heart disease, Onset Age: 78 Sister Stroke, Onset Age: 85 Cancer of kidney Brother Cancer of kidney, Onset Age: 76 Social History (Updated 12/26/24 @ 22:02 by Vu Swartz MD) Narrative: , 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 Her is driving but she is concerned because he has cognitive impairment or dementia. She hopes to resume driving. Code status is DNR. Daughter Moriah of [place] is healthcare power of attorney general. No formal exercise but cleans house uses stairs regularly What is your current living situation?: I presently have a place to live Problems where you live: no known problems Problems where you live details: none In the past 12 months, utilities in danger of being shut off: no In past 12 months, lack of transportation kept you from medical appts, meetings, work, or getting things needed for daily living: no In the past 12 mos, have been you worried that your food would run out before you had money to buy more?: never true In the past 12 mos, the food you bought just didn't last and you didn't have money to buy more?: never true Highest level of school completed/degree received: Bachelor's degree Smoking Status: Former smoker What tobacco products do you use: cigarettes Smoking quit date/years: >15 years ago Do you use any of these nicotine containing products: None Second hand tobacco smoke exposure: No How often do you have a drink containing alcohol: never How many standard drinks containing alcohol do you have on a typical day: 1 or 2 How often do you have six or more drinks on one occasion: Never AUDIT-C Alcohol total score: 0 Non-prescribed substance use: denies use Caffeine: Yes (1 cup in am) How often does anyone, including family, friends and others, physically hurt you : never How often does anyone, including family, friends and others, insult or talk down to you: never How often does anyone, including family, friends and others, threaten you with harm: never How often does anyone, including family, friends and others, scream or curse at you: never service: No Meds Home Medications and Allergies Home Medications ?Medication ?Instructions ?Recorded ?Confirmed ?Type allopurinol 100 mg tablet 200 mg PO QDAY 10/02/22 12/26/24 History acetaminophen 500 mg capsule 1,000 mg PO QHS PRN 01/31/24 12/26/24 History prednisone 1 mg tablet 2 mg PO DAILY 02/25/24 12/26/24 History amiodarone 200 mg tablet 200 mg PO QDAY 08/12/24 12/26/24 History atorvastatin 40 mg tablet 40 mg PO .Bedtime #90 tabs 08/12/24 12/26/24 Rx furosemide 20 mg tablet 20 mg PO QAM edema #90 tabs 08/12/24 12/26/24 Rx metoprolol succinate 25 mg 25 mg PO BID #180 tabs 08/12/24 12/26/24 Rx tablet,extended release 24 hr omeprazole 20 mg capsule,delayed 20 mg PO DAILY #90 caps 08/12/24 12/26/24 Rx release spironolactone 25 mg tablet 12.5 mg (1/2 x 25 mg) PO DAILY #90 08/12/24 12/26/24 Rx tabs levothyroxine 75 mcg tablet 75 mcg PO DAILY #90 tabs 09/05/24 12/26/24 Rx warfarin 2 mg tablet 2 mg PO 5XW #90 tabs 11/24/24 12/26/24 Rx Home Medication Comments: She does not take the furosemide daily. She takes it p.r.n. for ankle edema, approximately twice a week. She is on a prednisone taper down to 1 mg per day this week. Allergies Allergy/AdvReac Type Severity Reaction Status Date / Time propoxyphene Allergy Severe Weakness Verified 12/26/24 18:52 Exam Narrative: Exam Narrative: She is alert and appears in no distress. Speech is fluent. She is oriented to her circumstances. She does not recall significant portions of recent past medical history including many of her medications and diagnosis over the last year of hyperkalemia and chronic kidney disease. Head is without trauma. Eyes normal. No facial asymmetry. Oropharynx with small airway. Neck is supple without mass or adenopathy. No jugular venous distension. Respirations are clear to auscultation except for an occasional basilar crackle. Cardiovascular: S1, S2, somewhat irregular bradycardia. Abdomen is soft without tenderness or mass. Extremities without edema. Feet are cool to touch she does have dorsalis pedis pulses bilaterally but they are weak. She has an ulcer between the toes 3 and 4 on her right foot which is small and healing by her report. Diminished sensation in her feet. Const: Vital Signs, click to edit/add: Vital Signs - 24 hr 12/26/24 18:43 12/26/24 19:00 12/26/24 19:39 Temperature 97.2 F L Pulse Rate 56 L Pulse Rate [Right Pulse Oximeter] 59 L Respiratory Rate 18 16 Blood Pressure Blood Pressure [Ri ght Upper Arm] 186/82 H Pulse Oximetry 97 95 93 Oxygen Delivery Me thod Room Air 12/26/24 19:41 12/26/24 19:45 12/26/24 20:00 Temperature Pulse Rate 52 L 51 L 57 L Pulse Rate [Right Pulse Oximeter] Respiratory Rate 19 26 H 16 Blood Pressure 157/60 H Blood Pressure [Ri ght Upper Arm] Pulse Oximetry 94 95 97 Oxygen Delivery Me thod 12/26/24 20:21 12/26/24 20:22 12/26/24 20:23 Temperature Pulse Rate 57 L 62 61 Pulse Rate [Right Pulse Oximeter] Respiratory Rate 23 24 20 Blood Pressure 151/69 H Blood Pressure [Ri ght Upper Arm] Pulse Oximetry 96 98 97 Oxygen Delivery Me thod 12/26/24 20:30 12/26/24 20:31 12/26/24 20:45 Temperature Pulse Rate 57 L 55 L 56 L Pulse Rate [Right Pulse Oximeter] Respiratory Rate 17 26 H 13 Blood Pressure 169/83 H Blood Pressure [Ri ght Upper Arm] Pulse Oximetry 97 97 96 Oxygen Delivery Me thod 12/26/24 21:00 12/26/24 21:02 12/26/24 21:15 Temperature Pulse Rate 57 L 57 L 54 L Pulse Rate [Right Pulse Oximeter] Respiratory Rate 24 23 22 Blood Pressure 181/71 H Blood Pressure [Ri ght Upper Arm] Pulse Oximetry 96 95 95 Oxygen Delivery Me thod Documenting provider has reviewed patient's vital signs: yes Hospitalist - H&P: Result Labs Labs: Short CBC 12/26/24 Range/Units 19:25 WBC 11.10 H (4.50-11.00) K/uL Hgb 13.2 (12.0-16.0) gm/dL Hct 41.7 (33.0-51.0) % Plt Count 180 (140-440) K/uL BMP 12/26/24 19:25 Sodium 140 Potassium 6.2 H* Chloride 113 Carbon Dioxide 16 L BUN 48 H Creatinine 2.3 H Glucose 101 Calcium 9.6 ECG Attestation: I personally reviewed and interpreted this ECG as follows: (Sinus bradycardia with a rate of 54. First-degree AV block. Right bundle branch block which is old.) ECG interpretation date: 12/26/24
[2024-12-26] MEDS: AMLODIPINE 5 MG TABLET PO (22:53)
[2024-12-26] MEDS: MELATONIN 3 MG TABLET PO (22:53)
[2024-12-26] MEDS: ATORVASTATIN CALCIUM 40 MG TABLET PO (22:53)
[2024-12-26 22:56] LABS: Appearance Urine Clear (Clear); Bilirubin Urine Negative (Negative); Blood Urine Negative (Negative); Color Urine Light yellow (Yellow); Glucose Urine Negative (Negative); Ketones Urine Negative (Negative); Leukocyte Esterase Urine Trace (Negative); Nitrite Urine Negative (Negative); Protein Urine Negative (Negative); Specific Gravity Urine <= 1.005 (1.000-1.030); Urobilinogen Urine 0.2 (0.2-1.0); pH Urine 5.5 (5.0-8.5)
[2024-12-26 23:04] LABS: Bacteria Urine Few; RBC Urine 0-2 (0-2); Squamous Epithelial Cell Urine Few (None-Few); WBC Urine 0-2 (0-5)
[2024-12-27] VITALS (10 sets, daily range): BP systolic 104–152; BP diastolic 44–68; PULSE 44–56; RESP 16–18; TEMP 35.9–36.9; O2SAT 93–99
[2024-12-27] MEDS: LEVOTHYROXINE 75 MCG TABLET PO (06:16)
[2024-12-27 07:12] LABS: HCO3 VBG 28 mmol/L (21-28); PCO2 VBG 47 mmHG (40-50); PO2 VBG < 30.1 mmHG (25-47); pH VBG 7.385 (7.32-7.43)
--- NOTE | 2024-12-27 07:24 | PC.NURSE ---
Pt is alert and oriented x3. Pt reports tolerating chronic 0-7/10 chronic left hip pain, PRN medications offered pt refused. Pt is up SBA with walker and IV pole, voiding, and tolerating a regular diet. ?
[2024-12-27 07:37] LABS: Chloride* 105 mmol/L (96-114); Sodium* 138 mmol/L (135-149)
[2024-12-27 07:38] LABS: Potassium* 4.9 mmol/L (3.6-5.1)
[2024-12-27 07:40] LABS: Blood Urea Nitrogen* 50 mg/dL (7-30); Creatinine* 1.9 mg/dL (0.5-1.5); Est. Creatinine Clearance* 19.03; Estimated Glomerular Filt Rate 26 ml/min
[2024-12-27 07:41] LABS: Anion Gap 5 mEq/L (7-15); Calcium* 8.3 mg/dL (8.4-10.6); Carbon Dioxide* 28 mmol/L (20-32); Glucose* 97 mg/dL (60-115)
[2024-12-27 08:05] LABS: Erythrocyte SedimentationRate* 14 mm/hr (2-20)
[2024-12-27 08:15] LABS: Prothrombin Time 38.8 Seconds
[2024-12-27] MEDS: AMLODIPINE 5 MG TABLET PO (09:08)
[2024-12-27] MEDS: FUROSEMIDE 20 MG TABLET 40 MG PO (09:08)
[2024-12-27] MEDS: allopurinoL 100 MG TABLET 200 MG PO (09:08)
[2024-12-27] MEDS: METOPROLOL SUCCINATE (XL) 25 MG TAB PO (09:08)
[2024-12-27] MEDS: predniSONE 1 MG TABLET PO (09:08)
[2024-12-27] MEDS: SODIUM BICARBONATE 650 MG TABLET PO ×3 (09:08→17:52)
[2024-12-27] MEDS: OMEPRAZOLE 20 MG CAPSULE DR PO (09:08)
[2024-12-27] MEDS: AMIODARONE 200 MG TABLET PO (09:08)
--- NOTE | 2024-12-27 15:44 | P.IMPN_ITS ---
Assessment and Plan Assessment and plan (1) Acute on chronic kidney failure: Problem comment: Hospitalized with this in February 2024 and now again in December 2024 Creatinine 02/25/2024 was 2.9. By March 07 it improved to 1.2. Between July 2024 and today it is fluctuated between 2.0 and 2.3 urinalysis on 02/25/2024 appears benign Potassium in February 2024 was 5.7 and improved to 4.5 and is now increased to 6.3. CO2 in February 2024 was as low as 15 and improved to the 20s and now down to 16. 5/ - creatinine 1.9, BUN 50. Spironolactone held on admission, received 1 dose IV furosemide on admission. Started on furosemide 40 mg daily. Status: Resolved (2) Acute hyperkalemia: Problem comment: Tonight will receive IV furosemide and Lokelma. Tomorrow initiate oral furosemide at 40 mg a day. Follow potassium and further medication management may be necessary. Needs outpatient nephrology follow-up 12/27 - potassium improved to 4.9, continue to monitor Status: Resolved (3) Polymyalgia rheumatica: Problem comment: Executive Administrative Assistant Inga Tinajero -02/25/2024: Patient has been on a tapering dose of prednisone for number of months and is currently on 1 mg daily. I did not institute any stress doses of prednisone at this time. Status: Chronic (4) Rheumatoid arthritis: Problem comment: Chronic, followed by Rheumatology Status: Inactive (5) Paroxysmal atrial fibrillation: Problem comment: Currently in sinus rhythm. Well managed with amiodarone, metoprolol and warfar in. I reduced metoprolol due to her heart rate being mostly in the 50s Status: Acute (6) Cognitive impairment: Problem comment: Seems quite forgetful about recent past medical history. Living independently with her who has even greater cognitive deficits. Further outpatient evaluation is warranted Status: Acute (7) Peripheral neuropathy: Problem comment: Chronic Status: Acute (8) Mitral valve stenosis, severe: Problem comment: August 2024 fermenting cellar dropper recommended no valvular surgery due to frailty and comorbidities Status: Chronic (9) Leukocytosis: Problem comment: WBC 11.10 without many neutrophils. afebrile. UA unremarkable. No new symptoms. Monitor. Status: Acute Plan Possible discharge tomorrow pending ongoing clinical improvement Total Time Spent Total Time Spent: Today I spent 45 minutes seeing the patient, reviewing Expanse and EPIC notes/diagnostics, discussing the care plan with our care time that includes social work, PT/OT, pharmacy, RT, nursing home and documenting my impressions and plan in the medical record. Subjective Date Seen: 12/27/24 Interval history: Patient is seen sitting up in a chair this morning, family at bedside. Reports feeling well. Admit she never felt on well prior to admission. Denies headache or dizziness. Denies chest pain or shortness of breath. No nausea or vomiting, tolerating orals. Remains afebrile. Potassium and creatinine down trending appropriately. Mild elevation in white count without significant neutrophils. Asymptomatic, no cough, no fever, no new concerns. Exam Narrative: Exam Narrative: PHYSICAL EXAM General: Pleasant, conversant, NAD HEENT: Normocephalic, atraumatic, sclera white, EOMI, oral mucosa moist Cardiovascular: RRR Pulmonary: CTA bilaterally without rhonchi, rales, expiratory wheezes. No dyspnea on room air Abdominal: Soft, nondistended, NTTP Neurological: Alert, answering questions appropriately, cranial nerves intact, no focal findings Extremities: No gross joint deformity or swelling. AROMI. Neurovascularly intact Skin: Warm, dry. Const: Vital Signs, click to edit/add: Vital Signs - 24 hr 12/26/24 18:43 12/26/24 19:00 12/26/24 19:39 Temperature 97.2 F L Pulse Rate 56 L Pulse Rate [Pulse Oximeter] Pulse Rate [Right Pulse Oximeter] 59 L Respiratory Rate 18 16 Blood Pressure Blood Pressure [Le ft Arm] Blood Pressure [Ri ght Upper Arm] 186/82 H Pulse Oximetry 97 95 93 Oxygen Delivery Me thod Room Air 12/26/24 19:41 12/26/24 19:45 12/26/24 20:00 Temperature Pulse Rate 52 L 51 L 57 L Pulse Rate [Pulse Oximeter] Pulse Rate [Right Pulse Oximeter] Respiratory Rate 19 26 H 16 Blood Pressure 157/60 H Blood Pressure [Le ft Arm] Blood Pressure [Ri ght Upper Arm] Pulse Oximetry 94 95 97 Oxygen Delivery Me thod 12/26/24 20:21 12/26/24 20:22 12/26/24 20:23 Temperature Pulse Rate 57 L 62 61 Pulse Rate [Pulse Oximeter] Pulse Rate [Right Pulse Oximeter] Respiratory Rate 23 24 20 Blood Pressure 151/69 H Blood Pressure [Le ft Arm] Blood Pressure [Ri ght Upper Arm] Pulse Oximetry 96 98 97 Oxygen Delivery Vt thod 12/26/24 20:30 12/26/24 20:31 12/26/24 20:45 Temperature Pulse Rate 57 L 55 L 56 L Pulse Rate [Pulse Oximeter] Pulse Rate [Right Pulse Oximeter] Respiratory Rate 17 26 H 13 Blood Pressure 169/83 H Blood Pressure [Le ft Arm] Blood Pressure [Ri ght Upper Arm] Pulse Oximetry 97 97 96 Oxygen Delivery Vt thod 12/26/24 21:00 12/26/24 21:02 12/26/24 21:15 Temperature Pulse Rate 57 L 57 L 54 L Pulse Rate [Pulse Oximeter] Pulse Rate [Right Pulse Oximeter] Respiratory Rate 24 23 22 Blood Pressure 181/71 H Blood Pressure [Le ft Arm] Blood Pressure [Ri ght Upper Arm] Pulse Oximetry 96 95 95 Oxygen Delivery Vt thod 12/26/24 21:49 12/26/24 21:49 12/26/24 22:40 Temperature 97.3 F L 97.7 F Pulse Rate Pulse Rate [Pulse Oximeter] Pulse Rate [Right Pulse Oximeter] Respiratory Rate 18 18 Blood Pressure Blood Pressure [Le ft Arm] 168/60 H 145/56 H Blood Pressure [Ri ght Upper Arm] Pulse Oximetry 98 95 [facility] Room Air Room Air 12/26/24 23:14 12/27/24 02:44 12/27/24 08:23 Temperature 97.6 F 96.7 F L Pulse Rate 48 L Pulse Rate [Pulse Oximeter] 56 L 45 L Pulse Rate [Right Pulse Oximeter] Respiratory Rate 16 16 Blood Pressure Blood Pressure [Le ft Arm] 152/68 H 136/48 L Blood Pressure [Ri ght Upper Arm] Pulse Oximetry 98 96 [facility] Room Air 12/27/24 08:35 12/27/24 11:40 Temperature 97.0 F L Pulse Rate 44 L Pulse Rate [Pulse Oximeter] 46 L Pulse Rate [Right Pulse Oximeter] Respiratory Rate 18 Blood Pressure Blood Pressure [Le ft Arm] 104/44 L Blood Pressure [Ri ght Upper Arm] Pulse Oximetry 96 Oxygen Delivery Vt thod Room Air Labs Labs: Laboratory Results - last 24 hr 12/26/24 12/26/24 12/26/24 19:25 19:50 21:13 WBC 11.10 H RBC 3.82 L Hgb 13.2 Hct 41.7 MCV 109 H MCH 35 H MCHC 32 RDW Coeff of Lindsey 14.4 Plt Count 180 Neut % (Auto) 72.1 H Lymph % (Auto) 20.4 [place] % (Auto) 5.8 Eos % (Auto) 0.5 Baso % (Auto) 0.2 Neut # (Auto) 8.00 H Lymph # (Auto) 2.30 [place] # (Auto) 0.60 Eos # (Auto) 0.10 Baso # (Auto) 0.00 Abs Immat Gran (auto) 0.10 Imm/Tot Granulo (auto) 1.0 ESR INR VBG pH 7.218 L* VBG pCO2 42 VBG pO2 34.2 VBG HCO3 17 L Sodium 140 Potassium 6.2 H* Chloride 113 Carbon Dioxide 16 L Anion Gap 11 BUN 48 H Creatinine 2.3 H Estimated Creat Clear 15.72 Estimated GFR 20 Glucose 101 Uric Acid 3.4 Calcium 9.6 Phosphorus 4.5 Magnesium 1.9 Urine Color Urine Appearance Urine pH Ur Specific [place] Urine Protein Urine Glucose (UA) Urine Ketones Urine Blood Urine Nitrite Urine Bilirubin Urine Urobilinogen Ur Leukocyte Esterase Urine RBC Urine WBC Ur Squamous Epith Cells Urine Bacteria Lab Acknowledgement Test Added Test Added 12/26/24 12/27/24 22:00 05:40 WBC RBC Hgb Hct MCV MCH MCHC RDW Coeff of Lindsey Plt Count Neut % (Auto) Lymph % (Auto) [place] % (Auto) Eos % (Auto) Baso % (Auto) Neut # (Auto) Lymph # (Auto) [place] # (Auto) Eos # (Auto) Baso # (Auto) Abs Immat Gran (auto) Imm/Tot Granulo (auto) ESR 14 INR 3.80 H VBG pH 7.385 VBG pCO2 47 VBG pO2 < 30.1 VBG HCO3 28 Sodium 138 Potassium 4.9 Chloride 105 Carbon Dioxide 28 Anion Gap 5 L BUN 50 H Creatinine 1.9 H Estimated Creat Clear 19.03 Estimated GFR 26 Glucose 97 Uric Acid Calcium 8.3 L Phosphorus Magnesium Urine Color Light yellow Urine Appearance Clear Urine pH 5.5 Ur Specific [place] <= 1.005 Urine Protein Negative Urine Glucose (UA) Negative Urine Ketones Negative Urine Blood Negative Urine Nitrite Negative Urine Bilirubin Negative Urine Urobilinogen 0.2 Ur Leukocyte Esterase Trace A Urine RBC 0-2 Urine WBC 0-2 Ur Squamous Epith Cells Few Urine Bacteria Few A Lab Acknowledgement
--- NOTE | 2024-12-27 15:54 | PM.IMPN1 ---
Exam Const: Vital Signs, click to edit/add: Vital Signs - 24 hr 12/26/24 18:43 12/26/24 19:00 12/26/24 19:39 Temperature 97.2 F L Pulse Rate 56 L Pulse Rate [Pulse Oximeter] Pulse Rate [Right Pulse Oximeter] 59 L Respiratory Rate 18 16 Blood Pressure Blood Pressure [Le ft Arm] Blood Pressure [Ri ght Upper Arm] 186/82 H Pulse Oximetry 97 95 93 Oxygen Delivery [facility] Room Air 12/26/24 19:41 12/26/24 19:45 12/26/24 20:00 Temperature Pulse Rate 52 L 51 L 57 L Pulse Rate [Pulse Oximeter] Pulse Rate [Right Pulse Oximeter] Respiratory Rate 19 26 H 16 Blood Pressure 157/60 H Blood Pressure [Le ft Arm] Blood Pressure [Ri ght Upper Arm] Pulse Oximetry 94 95 97 [facility] 12/26/[facility] 20:21 12/26/24 20:22 12/26/24 20:23 Temperature Pulse Rate 57 L 62 61 Pulse Rate [Pulse Oximeter] Pulse Rate [Right Pulse Oximeter] Respiratory Rate 23 24 20 Blood Pressure 151/69 H Blood Pressure [Le ft Arm] Blood Pressure [Ri ght Upper Arm] Pulse Oximetry 96 98 97 Oxygen Delivery [facility] 12/26/24 20:30 12/26/24 20:31 12/26/24 20:45 Temperature Pulse Rate 57 L 55 L 56 L Pulse Rate [Pulse Oximeter] Pulse Rate [Right Pulse Oximeter] Respiratory Rate 17 26 H 13 Blood Pressure 169/83 H Blood Pressure [Le ft Arm] Blood Pressure [Ri ght Upper Arm] Pulse Oximetry 97 97 96 Oxygen Delivery [facility] 12/26/24 21:00 12/26/24 21:02 12/26/24 21:15 Temperature Pulse Rate 57 L 57 L 54 L Pulse Rate [Pulse Oximeter] Pulse Rate [Right Pulse Oximeter] Respiratory Rate 24 23 22 Blood Pressure 181/71 H Blood Pressure [Le ft Arm] Blood Pressure [Ri ght Upper Arm] Pulse Oximetry 96 95 95 [facility] 12/26/24 21:49 12/26/24 21:49 12/26/24 22:40 Temperature 97.3 F L 97.7 F Pulse Rate Pulse Rate [Pulse Oximeter] Pulse Rate [Right Pulse Oximeter] Respiratory Rate 18 18 Blood Pressure Blood Pressure [Le ft Arm] 168/60 H 145/56 H Blood Pressure [Ri ght Upper Arm] Pulse Oximetry 98 95 Oxygen Delivery [facility] Room Air Room Air Room Air 12/26/24 23:14 12/27/24 02:44 12/27/24 08:23 Temperature 97.6 F 96.7 F L Pulse Rate 48 L Pulse Rate [Pulse Oximeter] 56 L 45 L Pulse Rate [Right Pulse Oximeter] Respiratory Rate 16 16 Blood Pressure Blood Pressure [Le ft Arm] 152/68 H 136/48 L Blood Pressure [Ri ght Upper Arm] Pulse Oximetry 98 96 Oxygen Delivery [facility] Room Air Room Air 12/27/24 08:35 12/27/24 11:40 Temperature 97.0 F L Pulse Rate 44 L Pulse Rate [Pulse Oximeter] 46 L Pulse Rate [Right Pulse Oximeter] Respiratory Rate 18 Blood Pressure Blood Pressure [Le ft Arm] 104/44 L Blood Pressure [Ri ght Upper Arm] Pulse Oximetry 96 Oxygen Delivery [facility] Room Air Labs Labs: Laboratory Results - last 24 hr 12/26/24 12/26/24 12/26/24 19:25 19:50 21:13 WBC 11.10 H RBC 3.82 L Hgb 13.2 Hct 41.7 MCV 109 H MCH 35 H MCHC 32 RDW Coeff of Lindsey 14.4 Plt Count 180 Neut % (Auto) 72.1 H Lymph % (Auto) 20.4 [place] % (Auto) 5.8 Eos % (Auto) 0.5 Baso % (Auto) 0.2 Neut # (Auto) 8.00 H Lymph # (Auto) 2.30 [place] # (Auto) 0.60 Eos # (Auto) 0.10 Baso # (Auto) 0.00 Abs Immat Gran (auto) 0.10 Imm/Tot Granulo (auto) 1.0 ESR INR VBG pH 7.218 L* VBG pCO2 42 VBG pO2 34.2 VBG HCO3 17 L Sodium 140 Potassium 6.2 H* Chloride 113 Carbon Dioxide 16 L Anion Gap 11 BUN 48 H Creatinine 2.3 H Estimated Creat Clear 15.72 Estimated GFR 20 Glucose 101 Uric Acid 3.4 Calcium 9.6 Phosphorus 4.5 Magnesium 1.9 Urine Color Urine Appearance Urine pH Ur Specific Hardin Urine Protein Urine Glucose (UA) Urine Ketones Urine Blood Urine Nitrite Urine Bilirubin Urine Urobilinogen Ur Leukocyte Esterase Urine RBC Urine WBC Ur Squamous Epith Cells Urine Bacteria Lab Acknowledgement Test Added Test Added 12/26/24 12/27/24 22:00 05:40 WBC RBC Hgb Hct MCV MCH MCHC RDW Coeff of Lindsey Plt Count Neut % (Auto) Lymph % (Auto) [place] % (Auto) Eos % (Auto) Baso % (Auto) Neut # (Auto) Lymph # (Auto) [place] # (Auto) Eos # (Auto) Baso # (Auto) Abs Immat Gran (auto) Imm/Tot Granulo (auto) ESR 14 INR 3.80 H VBG pH 7.385 VBG pCO2 47 VBG pO2 < 30.1 VBG HCO3 28 Sodium 138 Potassium 4.9 Chloride 105 Carbon Dioxide 28 Anion Gap 5 L BUN 50 H Creatinine 1.9 H Estimated Creat Clear 19.03 Estimated GFR 26 Glucose 97 Uric Acid Calcium 8.3 L Phosphorus Magnesium Urine Color Light yellow Urine Appearance Clear Urine pH 5.5 Ur Specific Hardin <= 1.005 Urine Protein Negative Urine Glucose (UA) Negative Urine Ketones Negative Urine Blood Negative Urine Nitrite Negative Urine Bilirubin Negative Urine Urobilinogen 0.2 Ur Leukocyte Esterase Trace A Urine RBC 0-2 Urine WBC 0-2 Ur Squamous Epith Cells Few Urine Bacteria Few A Lab Acknowledgement
[2024-12-27] MEDS: ACETAMINOPHEN 500 MG TABLET 1000 MG PO (19:48)
[2024-12-27] MEDS: ATORVASTATIN CALCIUM 40 MG TABLET PO (20:58)
[2024-12-27] MEDS: SODIUM CHLORIDE 0.9 % (FLUSH) 10 ML SYRINGE 5 ML IVF (20:59)
[2024-12-28 04:35] VITALS: BP 132/52; PULSE 44; RESP 14; TEMP 36.4; O2SAT 99
[2024-12-28] MEDS: LEVOTHYROXINE 75 MCG TABLET PO (05:36)
--- NOTE | 2024-12-28 05:44 | PC.NURSE ---
Pt is alert and oriented x3. Pt reports tolerating chronic 3-5/10 left hip pain, managed with PRN medications. Pt is up ad federica with walker, voiding, and tolerating a regular diet. Pt slept throughout most of night.
[2024-12-28 06:40] LABS: Hematocrit 33.7 % (33.0-51.0); Mean Corpuscular HGB Conc 33 gm/dL (32-36); Mean Corpuscular Hemoglobin 35 pg (26-34); Mean Corpuscular Volume 107 fL (80-100); Platelet Count* 133 K/uL (140-440); Red Blood Count 3.16 m/uL (4.00-5.20); White Blood Count* 6.57 K/uL (4.50-11.00)
[2024-12-28 06:42] LABS: Slide Review Reflex No
[2024-12-28 06:54] LABS: Chloride* 97 mmol/L (96-114); INR 2.86 (0.91-1.10); Potassium* 4.1 mmol/L (3.6-5.1); Prothrombin Time 31.2 Seconds; Sodium* 138 mmol/L (135-149)
[2024-12-28 06:57] LABS: Anion Gap 6 mEq/L (7-15); Blood Urea Nitrogen* 47 mg/dL (7-30); Carbon Dioxide* 35 mmol/L (20-32); Est. Creatinine Clearance* 18.08; Estimated Glomerular Filt Rate 24 ml/min
[2024-12-28 06:58] LABS: Calcium* 8.4 mg/dL (8.4-10.6); Glucose* 80 mg/dL (60-115)
[2024-12-28 07:08] VITALS: PULSE 49
--- NOTE | 2024-12-28 08:12 | P.DS_ITS ---
DS: Providers Provider Date Seen: 12/28/24 Date of admission: 12/26/24 21:13 Primary care physician: Tamera Newton MD Admitting Clinician: Vu Swartz MD Consults: 12/26/24 21:42 Consult to Occupational Therapy [CONS] Routine Comment: Reason(s) for OT Consult:: Evaluate and Treat Any Restrictions?:: No Restrictions Comment: MOCA Consult to Physical Therapy [CONS] Routine Comment: Reason(s) for PT Consult:: Evaluate and Treat Any Restrictions?:: No Restrictions Attending Physician on discharge: ELLI Ha, DAQUANC Cook Hospitalist Date of Discharge: 12/28/24 DS: Diagnosis Discharge Diagnosis (1) Acute on chronic kidney failure: Status: Resolved Problem details: Hospitalized with this in February 2024 and now again in December 2024 Creatinine 02/25/2024 was 2.9. By March 07 it improved to 1.2. Between July 2024 and today it is fluctuated between 2.0 and 2.3 urinalysis on 02/25/2024 appears benign Potassium in February 2024 was 5.7 and improved to 4.5 and is now increased to 6.3. CO2 in February 2024 was as low as 15 and improved to the 20s and now down to 16. 5/17 - creatinine 1.9, BUN 50. Spironolactone held on admission, received 1 dose IV furosemide on admission. Started on furosemide 40 mg daily. On day of discharge, creatinine is 2.0 which appears to be baseline for her. Discussed importance of renal diet in setting of CKD and medication management. She is instructed to continue furosemide 40 mg once daily and is to not resume taking her spironolactone. Close outpatient follow-up with PCP for further medication management/changes as needed. (2) Acute hyperkalemia: Status: Resolved Problem details: Tonjean carlos will receive IV furosemide and Lokelma. Tomorrow initiate oral furosemide at 40 mg a day. Follow potassium and further medication management may be necessary. Needs outpatient nephrology follow-up 12/27 - potassium improved to 4.9, continue to monitor On day of discharge, potassium is 4.1. She will continue furosemide 40 mg once daily. Close outpatient follow-up with PCP, recheck BMP, recommendation for outpatient Nephrology follow-up (3) Polymyalgia rheumatica: Status: Chronic Problem details: Photo Lab Technician Dr Francisco Davila Inga campbell -02/25/2024: Patient has been on a tapering dose of prednisone for number of months and is currently on 1 mg daily. I did not institute any stress doses of prednisone at this time. (4) Rheumatoid arthritis: Status: Inactive Problem details: Chronic, followed by Rheumatology (5) Paroxysmal atrial fibrillation: Status: Acute Problem details: Currently in sinus rhythm. Well managed with amiodarone, metoprolol and warfarin. I reduced metoprolol due to her heart rate being mostly in the 50s Zio patch in place from outpatient setting On day of discharge, patient has been instructed to continue metoprolol 12.5 mg once daily. INR is 2.86 on 12/28/2024. Close outpatient follow-up with PCP. (6) Cognitive impairment: Status: Acute Problem details: Seems quite forgetful about recent past medical history. Living independently with her who has even greater cognitive deficits. Recommend formal neurocognitive testing in the outpatient setting (7) Peripheral neuropathy: Status: Acute Problem details: Chronic (8) Mitral valve stenosis, severe: Status: Chronic Problem details: August 2024 gang rider recommended no valvular surgery due to frailty and c omorbidities (9) Leukocytosis: Status: Resolved Problem details: RESOLVED. WBC 6.57 on day of discharge WBC 11.10 without many neutrophils. afebrile. UA unremarkable. No new symptoms. Monitor. (10) UTI (urinary tract infection): Status: Acute Problem details: UA quite unremarkable however UC growing >100,000 E Coli, sensitive to third gen cephalosporins. Ceftriaxone x1 now and discharge with cefdinir (11) Hypertension: Status: Chronic Problem details: Amlodipine was added for improved blood pressure support. Outpatient follow-up with PCP for further medication management DS: Summary Hospital Course Hospital Course: Course of care and details as noted above. Remainder of chronic medical comorbidities were monitored and managed with home medications. Status at Discharge Functional status at discharge: independent ambulation Overall status at discharge: patient is back to baseline Time Spent with Patient Time attestation: Total time spent providing and/or coordinating discharge services: Time spent: Greater than 30 minutes Exam Narrative: Exam Narrative: PHYSICAL EXAM General: Pleasant, conversant, NAD Cardiovascular: Mildly bradycardic Pulmonary: No dyspnea on room air Neurological: Alert, answering questions appropriately Skin: Warm, dry. Const: Vital Signs, click to edit/add: Vital Signs - 24 hr 12/27/24 08:23 12/27/24 08:35 12/27/24 11:40 Temperature 96.7 F L 97.0 F L Pulse Rate 44 L Pulse Rate [Pulse Oximeter] 45 L 46 L Respiratory Rate 16 18 Blood Pressure [Le ft Arm] 136/48 L 104/44 L Pulse Oximetry 96 96 Oxygen Delivery [facility] Room Air Room Air 12/27/24 16:07 12/27/24 16:21 12/27/24 19:45 Temperature 97.3 F L 97.7 F Pulse Rate 53 L Pulse Rate [Pulse Oximeter] 51 L 52 L Respiratory Rate 16 16 Blood Pressure [Le ft Arm] 133/48 L 140/59 H Pulse Oximetry 99 97 Oxygen Delivery [facility] Room Air Room Air 12/27/24 22:19 12/27/24 23:00 12/27/24 23:40 Temperature 98.5 F Pulse Rate 49 L Pulse Rate [Pulse Oximeter] 50 L 54 L Respiratory Rate 16 Blood Pressure [Le ft Arm] 116/49 L Pulse Oximetry 93 Oxygen Delivery [facility] Room Air 12/28/24 04:35 Temperature 97.6 F Pulse Rate Pulse Rate [Pulse Oximeter] 44 L Respiratory Rate 14 Blood Pressure [Le ft Arm] 132/52 L Pulse Oximetry 99 Oxygen Delivery [facility] Room Air DS: Data Data Completed and Pending Labs on day of discharge: Labs from last 24 hours 12/28/24 12/27/24 05:38 05:40 WBC 6.57 RBC 3.16 L Hgb 11.0 L Hct 33.7 MCV 107 H MCH 35 H MCHC 33 Plt Count 133 L INR 2.86 H 3.80 H Sodium 138 Potassium 4.1 Chloride 97 Carbon Dioxide 35 H Anion Gap 6 L BUN 47 H Creatinine 2.0 H Estimated Creat Clear 18.08 Estimated GFR 24 Glucose 80 Calcium 8.4 Discharge Plan Discharge Disposition: Home, Self-Care Date of Admission: 12/26/24 21:13 Attending Provider on Discharge: Piper Bass Primary Care Provider: Tamera Newton Condition: Stable Anticipated Discharge Date/Time: 12/28/24 10:41 Discharge Medications: New furosemide 20 mg Tablet 40 mg PO QAM Qty: 30 0RF metoprolol succinate 25 mg Tablet Extended Release 24 Hr 12.5 mg PO DAILY Qty: 30 0RF amlodipine 5 mg Tablet 5 mg PO DAILY Qty: 30 0RF cefdinir 300 mg capsule 300 mg PO BID Qty: 10 0RF Continued allopurinol 100 mg tablet 150 mg PO QDAY acetaminophen 500 mg capsule 1,000 mg PO QHS PRN amiodarone 200 mg tablet 200 mg PO QDAY atorvastatin 40 mg tablet 40 mg PO .Bedtime Qty: 90 3RF omeprazole 20 mg capsule,delayed release(DR/EC) 20 mg PO DAILY Qty: 90 3RF prednisone 1 mg tablet 1 mg PO DAILY furosemide 20 mg tablet 20 mg PO QAM PRN (Reason: edema) warfarin 2 mg tablet 2 mg PO 5XW Protocol: Dose Management Condition: Sunday Dose/Route: 0 mg Instruction: 0 tablets Condition: Sunday Dose/Route: 2 mg Instruction: 1 x 2 mg tablet Condition: Sunday Dose/Route: 2 mg Instruction: 1 x 2 mg tablet Condition: Sunday Dose/Route: 2 mg Instruction: 1 x 2 mg tablet Condition: Dose/Route: 2 mg Instruction: 1 x 2 mg tablet Condition: Sunday Dose/Route: 2 mg Instruction: 1 x 2 mg tablet Condition: Sunday Dose/Route: 0 mg Instruction: 0 tablets Protocol Text: Adjustment Start Date: Sunday12/19/24 INR Value: 3.11 INR Date: 12/19/24 Recheck Date: 01/18/25 Rx Instructions: 2MG SUN-SUN, 0 SAT/SUN levothyroxine 75 mcg tablet 75 mcg PO DAILY Qty: 90 3RF Discontinued spironolactone 25 mg tablet 12.5 mg PO DAILY Qty: 90 1RF metoprolol succinate 25 mg tablet extended release 24 hr 25 mg PO BID Qty: 180 3RF Discharge Orders: Discharge Order (Routine); Ordered 12/28/24 Ordered By: Piper Bass Patient Education: Metoprolol (By mouth), Furosemide (By mouth), Amlodipine (By mouth), Cefdinir (By mouth), Urinary Tract Infection in Women (DC), Chronic Kidney Disease (DC), Hyperkalemia (DC) Additional Instructions: MEDICATION CHANGES: METOPROLOL 12.5 MG (HALF OF A 25 MG TABLET) ONCE DAILY FUROSEMIDE 40 MG (TWO 20 MG TABLETS) ONCE DAILY DO NOT TAKE YOUR SPIRONOLACTONE AMLODIPINE 5 MG ONCE DAILY HAS BEEN ADDED CLOSE FOLLOW-UP WITH YOUR DOCTOR FOR RECHECK BMP, FURTHER MEDICATION MANAGEMENT/CHANGES NEEDED URINARY TRACT INFECTION: FINISH THE ANTIBIOTIC INR 2.86 on 12/28/24 Activity Level: No Restrictions Discharge Diet: Renal Diet Detail: YOU WILL NEED TO FOLLOW A MORE KIDNEY FRIENDLY DIET Follow Up Appointments: Terry Hanson MD [Staff Physician] - 12/31/24 1:15 pm ([facility] for hospital follow-up.) Tamera Newton MD [Primary Care Provider] - (Post hospital follow up 3-5 days) Forms: [employer] Info Instructions
[2024-12-28] MEDS: SODIUM BICARBONATE 650 MG TABLET PO (08:14)
[2024-12-28 08:17] VITALS: BP 130/51; PULSE 50; RESP 16; TEMP 36.4; O2SAT 98
[2024-12-28] MEDS: allopurinoL 100 MG TABLET 200 MG PO (09:15)
[2024-12-28] MEDS: FUROSEMIDE 20 MG TABLET 40 MG PO (09:15)
[2024-12-28] MEDS: AMIODARONE 200 MG TABLET PO (09:15)
[2024-12-28] MEDS: AMLODIPINE 5 MG TABLET PO (09:15)
[2024-12-28] MEDS: predniSONE 1 MG TABLET PO (09:15)
[2024-12-28] MEDS: OMEPRAZOLE 20 MG CAPSULE DR PO (09:15)
[2024-12-28] MEDS: METOPROLOL SUCCINATE (XL) 25 MG TAB 12.5 MG PO (09:15)
[2024-12-28] MEDS: SODIUM CHLORIDE 0.9 % (FLUSH) 10 ML SYRINGE 5 ML IVF (09:16)
[2024-12-28] MEDS: cefTRIAXone 1 GM in 0.9 % SODIUM CHLORIDE Mini-bag 100 ML IVPB (09:18)
--- NOTE | 2024-12-28 11:37 | PC.NURSE ---
Discharge: Patient pleasant and cooperative. Patient's am vitals stable, lungs clear, BS WNL, IV removed, catheter intact. Patient denies pain and is independent in room ambulating with walker. Patient tolerating regular diet and urinating well, urine has foul smell. Patient signed belongings sheet and discharge form, with no further questions. Patient left the floor with to home at 1133.
--- OUTSIDE RECORDS SUMMARY | 2024-12-28 17:13 | XMS_ITS | Encounter Summary ---
Author Organization [employer] Address [address] [place] [id number] Care Team Providers Care Sheet Tailer Name Role Phone Clinician, Not Found Primary Care Provider Un available Reason for Visit * Reason Comments Follow-up Encounter Details Date Type Department Care Team (Late st Contact Info) Description 11/18/2024 11:45 AM CDT Office Visit Rheumatology at [facility] [place] [address] [place], [place] [phone] Denise Davila MD [address] [place], [place] [phone] PMR (polymyalgia rheumatica) (HRC) (Primary Dx); Chronic [...] 11/18/2024 11:45 AM CDT Talk to front of house manager to put in Demographics that it is OK to call Moriah (Marti) if we need to and when we cannot get a hold of you. If the numbers are [phone] (or [phone]), it is from Inga Hernandes. documented in [...] 02/17/2025 11:45 AM CDT Appointment Rheumatology at [facility] [place] [address] [address] [address] [place], [place] [phone] Denise Davila MD [address] [place], [place] [phone] documented as of this encounter Results * (ABNORMAL) Sedimentation Rate (ESR) (11/18/2024 12:59 PM CDT) Pathologist [facility] Sedimentation Rate 25(H) 0 - 20 mm/hr 11/18/2024 1:34 PM CDT [facility] Blood Venipuncture / Unknown 11/18/2024 12:59 PM CDT 11/18/2024 12:59 PM CDT Denise Davila MD LAB_1 Final Result Performing Organization Address [facility] [address]/ZIP Co de Phone Number [facility] [address] [place] [phone], [facility] * C-Reactive Protein (11/18/2024 12:59 PM CDT) Pathologist [facility] C-Reactive Protein 0.4 0.0 - 0.5 mg/dL 11/18/2024 5:16 PM CDT [facility] Blood Venipuncture / Unknown 11/18/2024 12:59 PM CDT 11/18/2024 12:59 PM CDT Denise Davila MD LAB_1 Final Result Performing Organization Address City/[facility] [address]/ZIP Co de Phone Number [facility] [address] [place] [phone], [facility] * Uric Acid (11/18/2024 12:59 PM CDT) Uric Acid 3.6 2.6 - 6.0 mg/dL 11/18/2024 5:16 PM CDT [facility] Blood Venipuncture / Unknown 11/18/2024 12:59 PM CDT 11/18/2024 12:59 PM CDT us Denise Davila MD LAB_1 Final Result [facility] [address] [place] [phone], [facility] documented in this encounter Visit Diagnoses Diagnosis PMR (polymyalgia rheumatica) (HRC)- Primary Polymyalgia rheumatica 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
--- OUTSIDE RECORDS SUMMARY | 2024-12-28 17:13 | XMS_ITS | Encounter Summary ---
Author Organization [employer] Address [address] [place] [phone] Care Team Providers Care Frozen Food Selector Name Role Phone Clinician, Not Found MD Primary Care Provider Un available Encounter Details Date Type Department Care Team (Late Contact Info) Description 11/19/2024 Results Follow-Up Rheumatology at [address] [place] [address] Denise Davila MD [address] [place] [phone] Social History Tobacco Use Types Packs/Day Years [...] 02/17/2025 11:45 AM CDT Appointment Rheumatology at [facility] [address] [phone] Denise Davila MD [address] [place], [place] [address] [place] [address] documented as of this encounter Visit Diagnoses Not on filedocumented in this encounter Care Teams Frozen Food Selector Relationship Specialty Start Date End Date Clinician, Not Found, [place] [address] PCP - General 03/01/18 documented as of this encounter
--- OUTSIDE RECORDS SUMMARY | 2024-12-28 17:13 | XMS_ITS | Encounter Summary ---
Author Organization [employer] Address [address], [place] [address] Care Team Providers Care Processing Associate Name Role Phone Clinician, Not Found MD Primary Care Provider Un available Encounter Details Date Type Department Care Team (Late st Contact Info) Description 11/18/2024 12:30 PM CDT Lab Visit [facility] [address] [place] [address] Chronic tophaceous gout; PMR (polymyalgia rheumatica) (HRC) [...] 02/17/2025 11:45 AM CDT Appointment Rheumatology at [facility] [place] [address] [address] [address] [place] [address] Denise Davila MD [address] [place], [place] [phone] documented as of this encounter Procedures Procedure Name Priority Date/Time Associated Diagnosis Comments C-REACTIVE PROTEIN Routine 11/18/2024 12 :59 PM CDT PMR (polymyalgia rheumatica) (HRC) URIC ACID Routine 11/18/2024 12:59 PM CDT Chronic tophaceous gout SEDIMENTATION RATE (ESR) Routine 11/18/2024 12:59 PM CDT PMR (polymyalgia rheumatica) (HRC) documented in this encounter Results * (ABNORMAL) Sedimentation Rate (ESR) (11/18/2024 12:59 PM CDT) Pathologist [facility] Sedimentation Rate 25(H) 0 - 20 mm/hr 11/18/2024 1:34 PM CDT [facility] Blood Venipuncture / Unknown 11/18/2024 12:59 PM CDT 11/18/2024 12:59 PM CDT Denise Davila MD LAB_1 Final Result Performing Organization Address [facility]/ZIP Co de Phone Number [address] * C-Reactive Protein (11/18/2024 12:59 PM CDT) Pathologist [facility] C-Reactive Protein 0.4 0.0 - 0.5 mg/dL 11/18/2024 5:16 PM CDT [facility] Blood Venipuncture / Unknown 11/18/2024 12:59 PM CDT 11/18/2024 12:59 PM CDT Denise Davila MD LAB_1 Final Result [facility] [address] * Uric Acid (11/18/2024 12:59 PM CDT) Pathologist [facility] Uric Acid 3.6 2.6 - 6.0 mg/dL 11/18/2024 5:16 PM CDT [facility] Blood Venipuncture / Unknown 11/18/2024 12:59 PM CDT 11/18/2024 12:59 PM CDT us Denise Davila MD LAB_1 Final Result [facility] [address] [place] [phone] documented in this encounter Visit Diagnoses Diagnosis 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
--- OUTSIDE RECORDS SUMMARY | 2024-12-28 17:13 | XMS_ITS | Encounter Summary ---
Author Organization [employer] Address [address], [place] [address] Care Team Providers Care Die Maintenance Technician Name Role Phone Clinician, Not Found Primary Care Provider Un available Reason for Visit * Reason Comments RESULTS, TEST Encounter Details Date Type Department Care Team (Late st Contact Info) Description 11/19/2024 Telephone Rheumatology at [place] [address] [place] [address]. [place], [place] [phone] Denise Davila MD [address] [place] [address] [phone] RESULTS, TEST Social History Tobacco Use Types [...] 02/17/2025 11:45 AM CDT Appointment Rheumatology at [facility] [address] [phone] Denise Davila MD [address] [place], [place] [phone] documented as of this encounter Visit Diagnoses Not on filedocumented in this encounter Care Teams Die Maintenance Technician Relationship Specialty Start Date End Date Clinician, Not Found, [place] [address] PCP - General 03/01/18 documented as of this encounter
--- OUTSIDE RECORDS SUMMARY | 2024-12-28 17:13 | XMS_ITS | Clinical Summary ---
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 SPECIALIST Gender Identity Not on file Sexual Orientation Not on file Obstetrics History Last Filed Vital Signs Vital Sign Reading Time Taken Comments Blood Pressure 172/84 07/16/2024 11:19 AM DAIRY SPECIALIST Pulse 63 07/16/2024 11:19 AM DAIRY SPECIALIST Temperature 36.4 C (97.6 F) 05/16/2024 9:31 AM CDT Respiratory Rate 16 05/16/2024 9:31 AM CDT Oxygen Saturation 96% 07/16/2024 11:19 AM DAIRY SPECIALIST Inhaled Oxygen Concentration - - Weight 66.2 kg (146 lb) 06/17/2024 2:24 PM DAIRY SPECIALIST Height 162.6 cm (5' 4) 05/12/2024 6:00 [...] 09/24/2019, 03/26/2009 Medical Devices Implanted Type Area Brass Instrument Repair Technician Device Identifier Shelf Expiration Date Model / Serial / Lot Simplex P Bone Cement - Half Dose Implanted:Qty: 2 on 10/18/2021 by Kevin Hogue MD at [facility] Left: Knee [employer] 07/12/2023 / 6188-1-001 / [id number] Tri[employer]lon Femoral Posterior Augment Implanted:Qty: 1 on 10/18/2021 by Kevin Hogue MD at [facility] Left: Knee [employer] 06/01/2025 / [id number]-A-400 / [id number] Simplex P Bone Cement Full Dose Implanted:Qty: 2 on 10/18/2021 by Kevin Hogue MD at [facility] Left: Knee [employer] 09/12/2023 / [id number] / [id number] Triathlon Fluted Stem - Tibia Implanted:Qty: 1 on 10/18/2021 by Kevin Hogue MD at [facility] Left: Knee [employer] 10/09/2025 / [id number] / [id number] Triathlon Tritanium Tibial Symmetric Cone Augment Implanted:Qty: 1 on 10/18/2021 by Kevin Hogue MD at [facility] Left: Knee [employer] 05/04/2026 / [id number] / [id number] Triathlon Total Knee [place] Tibial Baseplate Implanted:Qty: 1 on 10/18/2021 by Kevin Hogue MD at [facility] Left: Knee [employer] 12/19/2025 / [id number] / [id number] Triathlon Fluted Stem - Femur Implanted:Qty: 1 on 10/18/2021 by Kevin Hogue MD at [facility] Left: Knee [employer] 06/15/2025 / [id number] / [id number] Triathlon Total Stabilizer Femoral Component Implanted:Qty: 1 on 10/18/2021 by Kevin Hogue MD at [facility] Left: Knee [employer] 01/16/2026 / [id number]-F-[id number] / [id number] Triathlon X3 Total Stablizer+ Tibial Insert Implanted:Qty: 1 on 10/18/2021 by Kevin Hogue MD at [facility] Left: Knee [employer] 08/31/2026 / [id number]-G-[id number] -[id number] / [id number] Triathlon Femoral Posterior Augment Implanted:Qty: 1 on 10/18/2021 by Kevin Hogue MD at [facility] Left: Knee [employer] 09/05/2025 / [id number]-A-[id number] / [id number] Insurance MEDICARE PB ONLY [facility] MEDIC[facility] PART B HB ONLY MEDICARE PART A HB ONLY MEDICARE PROVIDER BASED FOR LIFE Advance Directives Documents on File Type Date Recorded Patient Guard Supervisor Expl anation Healthcare Directive 10/20/2021 8:51 AM [...] Code Status Discussion: Reviewed Preferences Care Teams Overcoil Stepper Relationship Specialty Start Date End Date Tamera Newton MD [address] [place] [address] PCP - General Family Practice 10/24/23
== END 2024-12-28 11:33 | disposition home or self-care (01) | DRG 683 ==
LOC: ED 20:37 → MEDSURG 21:19
PROVIDERS: Physician Assistant; Admitting Provider Family Medicine; Emergency Provider Emergency Medicine; PCP Family Medicine; Visit Provider Family Medicine
DX: N17.9 Acute kidney failure, unspecified (principal); I13.0 Hypertensive heart and chronic kidney disease with heart failure and stage 1 through stage 4 chronic kidney disease, or unspecified chronic kidney disease; I48.20 Chronic atrial fibrillation, unspecified; I43 Cardiomyopathy in diseases classified elsewhere; I50.22 Chronic systolic (congestive) heart failure; N39.0 Urinary tract infection, site not specified; N18.4 Chronic kidney disease, stage 4 (severe); B96.20 Unspecified Escherichia coli [E. coli] as the cause of diseases classified elsewhere; E87.5 Hyperkalemia; D72.829 Elevated white blood cell count, unspecified; G31.84 Mild cognitive impairment of uncertain or unknown etiology; M35.3 Polymyalgia rheumatica; I48.0 Paroxysmal atrial fibrillation; M06.9 Rheumatoid arthritis, unspecified; G62.9 Polyneuropathy, unspecified; I05.0 Rheumatic mitral stenosis; I45.10 Unspecified right bundle-branch block; I44.0 Atrioventricular block, first degree; Z79.01 Long term (current) use of anticoagulants; Z79.52 Long term (current) use of systemic steroids; G25.81 Restless legs syndrome; K21.9 Gastro-esophageal reflux disease without esophagitis; E03.9 Hypothyroidism, unspecified; E78.5 Hyperlipidemia, unspecified; Z96.652 Presence of left artificial knee joint; Z96.651 Presence of right artificial knee joint; Z87.891 Personal history of nicotine dependence
CPT/HCPCS: 36415; 80048; 81001; 81003; 82803; 83735; 84100; 84550; 85025; 85027; 85610; 85651; 87086; 93005; 94761; 97112; 97116; 97161; 97165; 97535; 99284; 99285; A9270; J0696; J1938; J7070; J7512

== ENCOUNTER 2024-12-31 09:15 | Outpatient (RCR) | payer MEDICARE, OTHER, SELFPAY ==
--- NOTE | 2024-08-21 12:08 | PT.OPEX ---
PT [place] Outpatient Eval PT [facility] Outpatient Eval Start: 08/20/24 15:45 Freq: Status: Active Protocol: Document 08/21/24 08:11 HLA (Rec: 08/21/24 12:03 HLA [id number]) E-signed By Adela Nelson, PT, DPT Physical Therapy Outpatient Evaluation Insurance Information Insurance Name Other; See Comments Insurance Information/Comments ; MWR Seibert Medical Diagnosis balance impairment Treating Diagnosis impaired balance, weakness Referring MD Newton Subjective Preferred Name Princess Subjective Reports not feeling well since 2023, so SOB she couldn't breathe. Had RAMEZ, a- fib diagnosed and also they found a blood clot in her heart. Clot actually grew over the next 6 weeks, white count skyrocketed. They incidentally found an infection in her foot and couldn't cardiovert her because of that. She was in the hospital x 9 days for a foot surgery after that. She has since been in sinus rhythm so no cardioversion was needed. A pacemaker was indicated, but put on hold. In the meantime, she became quite weak from not being able to move. Foot has now healed. She is ready to 'get moving again.' Pt reports feeling so weak, can't move or lift like she would like to. She has not been driving since last and wants to be stronger to do that but worries about her neuropathy in her feet and will wait and see. She has been using her 4ww due to 7 falls in the past <1 year. 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 Precautions Treatment Precautions/Contraindications PMHx: digoxin use, RAMEZ 01/24/24 , severe mitral stenosis, moderate tricuspid regurgitation, valvular a-fib, GERD, chronic kidney disease, thrombus hx, heart failure, cardiomyopathy, HTN, hypothyroidism, RA, polymyalgia, rheumatica, L and R TKA Weight Bearing Status Weight Bear as Tolerated Therapy Limitations/Systems Review Not Limited Objective Range of Motion AROM B shldrs 0-160 degrees flex/ abd, ER/IR 0-60 R hip 0-100 flex, L 0-110 R knee 10-100 degrees flex, L 0-110 R DF 0-10, L 0-10 R PF 0-50, L 0-50 Strength Shldr flex 4/5 L, 4+/5 R Shldr abd 4/5 L, 3+/5 R elbow/wrist/hands 5-/5 Hip flex 4-/5 R, 4/5 L hip abd 4-/5 R, 4/5 L hip add 4+/5 R, 4+/5 L knee ext 3-/5 R, 5-/5 L knee flex 4+/5 R, 5-/5 L DF 4/5 R, 4/5 L PF 4/5 R, 4/5 L Palpation pain R supraspinatus, R knee with extension Balance & Gait Amb with 4ww 100 feet x 2, difficulty turning, backing up , 'flinches' fears losing balance, vc posture, heel toe gt. stairs step to, cga x 3 [address] basement stairs and avoids them. Sensation/Reflexes impaired lower calves/feet/ toes to light touch, hx of neuropathy B LES. Functional Test Performed & Score 5 time sit<>stand 17.03 sec functional reach 7 inches Tinetti high fall risk perturbations in standing fall back, limited balance with side to side challenges static standing. Assessment Assessment/Impression 84 year old female has had 7 falls in the past several months, also complex cardiac dx and healing foot wound all which caused her to move minimally/household distances and she has become weak, balance impaired, 4ww dependent. Pt notes her R TKA revision from 2021 resulted in no patella. Noted pt substituting with closed chain hamstrings on R for knee ext, not using her quads. She is weak throughout UEs/LEs. Pt with limited balance, falling back and impaired side to side balance with testing. She was instructed today in quad sets , standing ex focusing on quad control and balance using her 4ww. We discussed increasing her amb to every hour up short bouts with walker. Noted her 4ww has stationary wheels in front and swivels in back. Did try our 4ww but it was too fast for pt so we discussed revisiting correcting her walker at a later date. Gt is slow, tenuous with walker and pt is limited in distance to 100 feet before becoming fatigued and SOB. HR 66-70, Sa02 96-97% with gt/ex today room air. Hx of a-fib but pt indicates she feels it has not been occurring for some time. Pt will benefit from PT for strengthening, gt training, balance ex, stairs, home program instruction and fall prevention to help her regain ind in mobility, return to community distance amb at lowered fall risk. Plan of Care Rehabilitation Potential Good Physical Therapy Goals Within 6-8 weeks 1. Pt will remain free of falls during therapy intervention period. 2. Pt will score 20% increase on 2 of 3 balance tests for reduced fall risk, promoting independence. 3. Pt will be independent in home ex program to promote strength and balance and to reduce fall risk. 4. Pt will amb 500 feet with least restrictive device safely and independently for community mobility. Coordination/Communication With Referral Source Treatment Plan/Direct Interventions Gait Training,Manual Therapy, Neuromuscular Re-ed,Self-Care/ Home Management,Therapeutic Activities,Therapeutic Exercises Frequency/Duration 1x/week x 6-8 weeks Patient Will Be Discharged From Therapy Completion of LTG(s),Skills Plateau,Independent w/HEP, Independently Progressing Evaluation Billing Untimed Code Treatment Minutes 15 PT Eval No Charge No Complexity Moderate Certification Information Initial Certification Date 08/21/24 Ending Certification Date 11/18/24 Provider Signature Required Yes Provider Signature Shows Agreement With POC & Medical Necessity Physician NPI Number Write NPI# Here Physician Comment/Change : Physician Signature & Date Requested Please Sign/Date Here
--- NOTE | 2024-09-24 12:27 | PT.OPDNX ---
PT [facility] Daily Note PT [facility] Daily Note Start: 08/20/24 15:45 Freq: Status: Active Protocol: Document 09/24/24 07:23 HLA (Rec: 09/24/24 12:25 HLA [id number]) E-signed By Adela Nelson, PT, DPT PT OP Daily Progress Note Visit Information Note Type Daily Note Visit Number 5 Insurance Information Recert Due Date 11/18/24 Insurance Name Other; See Comments Insurance Information/Comments ; [facility] [place] Medical Diagnosis balance impairment Treating Diagnosis impaired balance, weakness Referring MD Newton Subjective Preferred Name Princess Subjective Pt reports fall using her walker, rounded the corner, I went down Fell onto her L shldr and L elbow, both bruised, denies pain. She did not seek medical attention. Still with R medial knee effusion from previous fall. Added doubled tubigrip to R knee to help with edema reduction, improve stability. Pt is noting her neuropathy impacts her stability but conts to feel like her R knee buckling affects her and she cannot control her knee backing up. Using walker for safety discussed, safety backing up and turning practiced. Pain Comments pain L hip along greater trochanter, xray was negative, new pain R knee from fall , now 2nd fall 10/07 onto L shldr and elbow with bruising. Date of Last Physician Visit 08/12/24 Precautions Treatment Precautions/Contraindications PMHx: digoxin use, RAMEZ 01/24/24 , severe mitral stenosis, moderate tricuspid regurgitation, valvular a-fib, GERD, chronic kidney disease, thrombus hx, heart failure, cardiomyopathy, HTN, hypothyroidism, RA, polymyalgia, rheumatica, L and R TKA Weight Bearing Status Weight Bear as Tolerated Home Exercise Home Exercise Comments Access Code: [email or web address] URL: [email or web address] Date: 09/10/2024 Prepared by: Adela Nelson Exercises - Supine Quadricep Sets - 1 x daily - 7 x weekly - 2 sets - 10 reps - 5 hold - Standing March with Counter Support - 1 x daily - 7 x weekly - 1 sets - 10 reps - 3 hold - Mini Squat with Counter Support - 1 x daily - 7 x weekly - 1 sets - 10 reps - Heel Raises with Counter Support - 1 x daily - 7 x weekly - 1 sets - 10 reps - Seated Shoulder Horizontal Abduction with Resistance - 1 x daily - 7 x weekly - 1 sets - 10 reps - Seated Elbow Flexion with Self-Anchored Resistance - 1 x daily - 7 x weekly - 1 sets - 10 reps - 3 hold - Seated Elbow Extension with Self-Anchored Resistance - 1 x daily - 7 x weekly - 1 sets - 10 reps - 3 hold - Small Range Straight Leg Raise - 1 x daily - 7 x weekly - 1 sets - 10 reps - 3 hold, then small range SLR - Supine Short Arc Quad - 1 x daily - 7 x weekly - 3 sets - 10 reps Objective Functional Test Performed & Score 5 time sit<>stand 17.03 sec functional reach 7 inches Tinetti high fall risk perturbations in standing fall back, limited balance with side to side challenges static standing. Patient Instructed in Risks/Benefits Yes Therapeutic Exercise Therapeutic Exercise Minutes (minutes) 32 Therapeutic Exercise: To Restore nu step level 4 x 6 min Functional Status Quad sets seated leg extended x 10, reps 2 sets 5 sec hold, isometric SLR with quad set leg neutral, then in ER 2 sets of 5 reps, 5 sec hold with assist needed, leg falls if lifted > 4 inches, pt needs reminders to do very small range SLR, 3-4 inches only, rest in between sets. Standing B LE support, resisted R knee terminal ext 2 sets of 10, 5 sec hold Seated quad set, then LAQ, conts with ext lag on R Seated marching x [address] piriformis stretch 30 sec x 3 LTR supine x 10 HS x 10 Standing B UE support HF x 15 LAQ with assist 5 reps, 2 sets , if active noted 35 degree lag marching 10 reps with band x 10, 2 sets hip abd/add with red band x 20 , 5 sec hold ham curls on R x 20 with green band standing at R railing mini squats, SLR x 10, marching x 10-cues to hold R knee from locking into hyperextension to allow quad movement. at walker, quad activation R LE, step fwd with L foot small step and back, pt does lock knee back into extension using HS, jennifer if not focused. Worked on strategies to get stability R knee at stance before moving L. Poor balance posteriorly, needs to use walker. Therapeutic Activity Therapeutic Activities Comments sit<>stands worked on safety and controlled descent Gait & Stair Training Gait & Stair Training Comments pt in with her 4ww Neuromuscular Re-Ed Neuromuscular Reeducation Minutes ( 16 minutes) Neuromuscular Reeducation Comments at railing on R, fwd/back, practiced turns at the e1 UE supoprt today. Worked on stepping back, controlling R knee to avoid buckling, pt does lose balance posteriorly. Perturbations in standing 1 UE support, cga balance. Treatment Minutes Timed Code Treatment Minutes 48 Total Treatment Time 48 Billing Units Neuromuscular Reeducation Units 1 Therapeutic Exercise Units 2 Assessment/Impression Assessment/Impression 84 year old female with cardiac hx falls and weakness is undergoing PT. She had a 2nd fall this past week, leg gve out and she fell onto her L shldr and elbow. Bruising, abrasions noted. Pt conts with effusion and bruising R medial knee. Added doubled tubigrip for compression and support. Discussed a brace, however, pt would not have the strength to rise to stand with any knee ext lock. She will try the tubigrip for now. Balance conts to be impaired, worked on turns, backing up. Due to neuropathy and poor R knee control, weakness of quad and vastus medialis, pt does lock R knee into extension. She is limited in amb ability. We did discuss asking her primary about a possible ortho referral as she has hx of TKA with no patellar component, now with significant R quad weakness affecting safety of her amb. Pt also with L sciatic type pain, does improve with stretch and ex. small step and back, pt does lock knee back into extension using HS, jennifer if not focused. Worked on strategies to get stability R knee at stance before moving L. Poor balance posteriorly, needs to use walker. Pt with impaired R quad strength, 35 degree ext lag on R in sitting, poor SLR and poor SLR with hip in ER. Pt was able to do some ex with resistance, again needs assist with extension of her leg. Worked on balance in standing, wt shifts onto R LE, control of knee without buckling or locking back into extension. She remains at high fall risk, amb posteriorly in particular. Pt to work on strengthening of quads, added ex to her program and reviewed . She will do PT every other week now, plan to advance balance ex as pt's strength improves. She is now using her walker consistently. Again, an ortho consult to see if anything can be done for her R knee may be helpful, pt does have neuropathy as well impacting her mobility. Pt will benefit from PT for strengthening, gt training, balance ex, stairs, home program instruction and fall prevention to help her regain ind in mobility, return to community distance amb at lowered fall risk. Primary Functional Limitations weakness impaired balance falls impaired amb with walker limited endurance for ADLs, walking Plan of Care Physical Therapy Goals Within 6-8 weeks 1. Pt will remain free of falls during therapy intervention period. 2. Pt will score 20% increase on 2 of 3 balance tests for reduced fall risk, promoting independence. 3. Pt will be independent in home ex program to promote strength and balance and to reduce fall risk. 4. Pt will amb 500 feet with least restrictive device safely and independently for community mobility. Daily Plan of Care Continue per POC Equipment Information Equipment Information has 4ww, wheels are reversed.
--- NOTE | 2024-11-27 08:27 | PT.OPDNX ---
PT [facility] Daily Note PT [facility] Daily Note Start: 08/20/24 15:45 Freq: Status: Active Protocol: Document 11/27/24 07:19 HLA (Rec: 11/27/24 08:26 HLA [id number]) E-signed By Adela Nelson, PT, DPT PT OP Daily Progress Note Visit Information Note Type Daily Note,Recert/Progress Note Visit Number 6 Insurance Information Recert Due Date 11/18/24 Insurance Name Other; See Comments Insurance Information/Comments ; [facility] [place] Medical Diagnosis balance impairment, L hip bursitis after fall Treating Diagnosis impaired balance, weakness, pain L hip/bursitis Referring MD Newton Subjective Preferred Name Princess Subjective I missed 1 week of PT because I had a cold, then the next week I fell getting something out of my closet, stepping back, lost balance and onto my L hip. I went to see Dr. Martinez about my L hip and knee and my falling. He said I have bursitis of my hip and didn't say much about the knee . She returns for PT today and wants to work on balance again, but also strength of her knee and pain and weakness in her L hip as they do seem related to her falls. Pain Comments pain L greater trochanter, pain R knee at times from previous falls Date of Last Physician Visit 08/12/24 Precautions Treatment Precautions/Contraindications PMHx: digoxin use, RAMEZ 01/24/24 , severe mitral stenosis, moderate tricuspid regurgitation, valvular a-fib, GERD, chronic kidney disease, thrombus hx, heart failure, cardiomyopathy, HTN, hypothyroidism, RA, polymyalgia, rheumatica, L and R TKA Weight Bearing Status Weight Bear as Tolerated Home Exercise Home Exercise Comments Access Code: [email or web address] URL: [email or web address] Date: 11/27/2024 Prepared by: Adela Nelson Exercises - Mini Squat with Counter Support - 1 x daily - 7 x weekly - 1 sets - 10 reps - Supine Bridge - 1 x daily - 7 x weekly - 1 sets - 20 reps - Clamshell - 2 x daily - 7 x weekly - 1 sets - 15 reps - Supine Lower Trunk Rotation - 2 x daily - 7 x weekly - 1 sets - 15 reps - 10 hold - Seated March - 1 x daily - 7 x weekly - 1 sets - 20 reps Objective Other/Pertinent Objective strength R hip 4/5, L hip 4/5 flex and abd, ext 4/5 L, 4+/5 R knee ext 4/5 L, 3+/5 R, knee flex 4/5 B ankles 4/5 arms 5-/5 Functional Test Performed & Score 5 time sit<>stand 18.55 sec Functional reach 7 inches Tinetti 18/28 perturbations still with difficulty regaining balance posteriorly/falls back Patient Instructed in Risks/Benefits Yes Therapeutic Exercise Therapeutic Exercise Minutes (minutes) 35 Therapeutic Exercise: To Restore nu step level 4 x 8 min Functional Status supine bridges x 20, bridges with red band x 15 sidelying clams x 20 supine hip abd hooklying red band x 20 SLR labored R LE, 2 inches only 15, then L active 15 piriformis stretch 30 sec x 2 LTR x 15 seated HF seated HF with red band x 20 seated hi hip abd red band x 20 LAQ x 15, lacks 20 degrees ext on R LE sit<>stands 2 UE support x 10 Therapeutic Activity Therapeutic Activities Comments sit<>stands 2 UE support sit<>supine ind rolling ind Manual Therapy Techniques Manual Therapy Minutes (minutes) 10 Manual Therapy Techniques STM to L glut, piriformis and greater trochanter to reduce pain, improve ROM/strength Gait & Stair Training Gait & Stair Training Comments pt in with her 4ww-noted knee hyperextension/locking on R, abducted gt, poor balance turning and backing up, limited control stand to sit, mild losses of balance, self corrected. Worked with pt on walker safety, fall prevention . Neuromuscular Re-Ed Neuromuscular Reeducation Minutes ( 15 minutes) Neuromuscular Reeducation Comments 5 time sit<>stand 18.55 sec Functional reach 7 inches Tinetti 18/28 perturbations still with difficulty regaining balance posteriorly/falls back Treatment Minutes Timed Code Treatment Minutes 60 Total Treatment Time 60 Billing Units Manual Therapy Units 1 Neuromuscular Reeducation Units 1 Therapeutic Exercise Units 2 Assessment/Impression Assessment/Impression 84 year old female with cardiac hx falls and weakness was undergoing PT for strength , balance, gt training with ongoing falls. She had onset of illness, then fell again onto her L hip. Saw ortho with dx of L hip bursitis related to fall onto that hip and encouraged her to resume PT. Pt returns, indicates she did fall again last week getting clothes out of her closet. She is doing some of her ex, primarily using walker, some loss of balance moving backwards and standing up/ control sitting back down. Worked with pt on walker safety and fall prevention. She presents with tenderness L greater trochanter and piriformis/abd incisions, stiffness and weakness LEs. Balance impairment noted on testing, fall risk and encouraged 4ww use. Strength impairment noted B LEs rosemary L hip and R knee. Manual tech for L hip bursitis, ex for ROM and strength, balance ex with pt noting some relief by end of session. Updated her home ex program to focus on current problems and practiced x 2. Pt with weakness, pain L hip, balance impairment, impaired amb and frequent falls. Pt will benefit from PT for strengthening, gt training, pain reduction L hip, balance ex, stairs, home program instruction and fall prevention to help her regain ind in mobility, return to community distance amb at lowered fall risk. Primary Functional Limitations weakness impaired balance falls impaired amb with walker limited endurance for ADLs, walking Plan of Care Physical Therapy Goals Within 8 weeks 1. Pt will remain free of falls during therapy intervention period. 2. Pt will score 20% increase on 2 of 3 balance tests for reduced fall risk, promoting independence. 3. Pt will be independent in home ex program to promote strength and balance and to reduce fall risk. 4. Pt will amb 500 feet with least restrictive device safely and independently for community mobility. Daily Plan of Care Continue per POC Equipment Information Equipment Information has 4ww, wheels are reversed.
== END 2025-03-24 16:44 | disposition home or self-care (01) ==
PROVIDERS: PCP Family Medicine; Visit Provider Orthopaedic Surgery
DX: R26.89 Other abnormalities of gait and mobility (principal); M70.72 Other bursitis of hip, left hip; Z51.89 Encounter for other specified aftercare
CPT/HCPCS: 80048; 97110; 97112; 97140; 97162

== ENCOUNTER 2025-01-21 11:30 | Outpatient (CLI) | payer MEDICARE, OTHER, SELFPAY | END 2025-01-21 11:31 | disposition home or self-care (01) | LOC: NFLDREF 01-22 23:14 | PROVIDERS: PCP Family Medicine; Referring Provider Family Medicine; Visit Provider Family Medicine | DX: N18.9 Chronic kidney disease, unspecified (principal); I48.0 Paroxysmal atrial fibrillation; Z79.01 Long term (current) use of anticoagulants | CPT/HCPCS: 80048 ==

== ENCOUNTER 2025-02-02 13:43 | Outpatient (CLI) | payer MEDICARE, OTHER, SELFPAY ==
--- OUTSIDE RECORDS SUMMARY | 2025-02-03 01:24 | XMS_ITS | Encounter Summary ---
Author Organization [employer] Address [address] [place] [address] Care Team Providers Care Drop Press Hand Name Role Phone Clinician, Not Found MD Primary Care Provider Un available Encounter Details Date Type Department Care Team (Late Contact Info) Description 11/19/2024 Results Follow-Up Rheumatology at [address] [place] [address] Denise Davila MD [address] [place] [address] [phone] Social History Tobacco Use Types Packs/Day Years [...] 02/17/2025 11:45 AM CDT Appointment Rheumatology at [facility] [address] [id number] Denise Davila MD [address] [place], [place] [address] [address] documented as of this encounter Visit Diagnoses Not on filedocumented in this encounter Care Teams Drop Press Hand Relationship Specialty Start Date End Date Clinician, Not Found, [place] [address] PCP - General 03/01/18 documented as of this encounter
--- OUTSIDE RECORDS SUMMARY | 2025-02-03 01:24 | XMS_ITS | Clinical Summary ---
Author Organization [employer] Address [address], [place] [address] Care Team Providers Care Humanities Teacher Name Role Phone Clinician, Not Found MD Primary Care Provider Un available Source Comments You are receiving this document as you are listed as the primary care provider,follow-up provider, or the patient has been referred to you for consultation.This is in compliance with the Medicare and[facility] Hospital[facility] EHR Incentive Program,which states Providers who transition their patient to another setting of careor provider of care or refers their patient to another provider of care shouldprovide summary care record for each transition of care or referral. 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 Renal insufficiency 10/01/2020 Hyperuricemia 09/10/2020 S/P total knee arthroplasty, bilateral 8 S/P appendectomy 03/29/2018 Restless legs syndrome (RLS) 03/29/2018 Chronic left shoulder pain 03/29/2018 Psoriatic arthritis 03/29/2018 Sensorineural hearing loss 02/22/2005 Overview (04/04/2017): LW Onset: [id number] ; Hearing Loss Sensorineural Undiagnosed cardiac murmurs 02/22/2005 Overview (04/04/2017): LW Modifier: functional LW Onset: [id number] ; Heart Murmur Right bundle branch block 02/22/2005 Overview (03/16/2016): LW Onset: [id number] Obesity 05/04/2004 Overview (03/16/2016): LW Onset: 07Mka40 Essential hypertension 01/17/2003 Overview (04/04/2017): Hypertension Hypothyroidism 01/17/2003 Overview (04/04/2017): Hypothyroidism Acquired Osteoarthritis 01/17/2003 Overview (04/04/2017): DJD Chronic kidney disease, stage 3b Encounters Date Type Department Care Team Description 11/19/2024 Telephone Rheumatology at [address] [place] [address] Denise Davila MD RESULTS, TEST 11/19/2024 Results Follow-Up Rheumatology at [address] [place] [address] Denise Davila MD 11/18/2024 12:30 PM CDT Lab Visit [address] [address] Chronic tophaceous gout; PMR (polymyalgia rheumatica) (HRC) 11/18/2024 11:45 AM CDT Office Visit Rheumatology at [facility] and [address] [address] Denise Davila MD PMR (polymyalgia rheumatica) (HRC) (Primary Dx); Chronic tophaceous gout; Osteoarthritis of multiple joints, unspecified osteoarthritis type; Stage 3 chronic kidney disease, unspecified whether stage 3a or 3b CKD (HRC) from Last 3 Months Immunizations Immunization Administration Dates Next Due Flu Vac Preserv Free (3+yrs) 04/21/2013, 04/28/2009,05/21/2006,2004,05/04/2004 Influenza IIV3 (Trivalent) F ramiro Highdose, 65+ Yrs ([id number]) 06/15/2020,07/01/2019,05/27/2018,2017,05/30/2017,05/15/2016,04/28/2014 Influenza IIV4 (Quadrivalent ) Fluad, 65+ [...] 35.9 C (96.6 F) 09/29/2022 9:47 AM TEST PILOT Respiratory Rate - - Oxygen Saturation - [...] CDT Appointment Rheumatology at [facility] [address] [address] Denise Davila MD [address] [address] Health Maintenance Due Date Last Done Comments [...] tophaceous gout DXA BONE DENSITY SPINE[employer]HIP INC TidalScaleT FX ASSESS Routine 06/24/2024 12:03 PM TEST PILOT long term care administrator 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 from Last 3 Months or Most Recently Relevant to Health Maintenance Results * C-Reactive Protein (11/18/2024 12:59 PM CDT) C-Reactive Protein 0.4 0.0 - 0.5 mg/dL 11/18/2024 5:16 PM CDT [facility] Blood Venipuncture / Unknown 11/18/2024 12:59 PM CDT 11/18/2024 12:59 PM CDT us Denise Davila MD LAB_1 Final Result Performing Organization Address [facility]/ZIP Co de Phone Number [facility] [address] * Uric Acid (11/18/2024 12:59 PM CDT) Uric Acid 3.6 2.6 - 6.0 mg/dL 11/18/2024 5:16 PM CDT [facility] Blood Venipuncture / Unknown 11/18/2024 12:59 PM CDT 11/18/2024 12:59 PM CDT us Denise Davila MD LAB_1 Final Result Performing Organization Address [facility]/ZIP Co de Phone Number [facility] [phone] * (ABNORMAL) Sedimentation Rate (ESR) (11/18/2024 12:59 PM CDT) Sedimentation Rate 25(H) 0 - 20 mm/hr 11/18/2024 1:34 PM CDT [facility] Blood Venipuncture / Unknown 11/18/2024 12:59 PM CDT 11/18/2024 12:59 PM CDT us Denise Davila MD LAB_1 Final Result [facility] [address] [place] [address], [facility] * DXA Bone Density Spine[employer]ip [employer] Vert FX Assess (06/24/2024 12:03 PM TEST PILOT) DXA Hip Left Bone Mineral Density 0.704 [...] Radiographic Dayanna ging Narrative 06/27/2024 3:06 PM TEST PILOT Table formatting from the original result was not included. Patient Name: Abimbola Sandovalypsujata Densitometer: [employer] HORIZON W Appt Dept/Resource: [facility] Bone Density [facility] Demographics Age: 84 y.o. Gender: Female [...] trabecular bone, and is derived from the [id number] changes of bone density embedded in the [...] Recently Relevant to Health Maintenance Insurance MEDICARE [employer] MEDICARE FOR LIFE Care Teams Humanities Teacher Relationship Specialty Start Date End Date Clinician, Not Found, [place] [address] PCP - General 03/01/18
== END 2025-02-02 13:44 | disposition home or self-care (01) ==
LOC: RAD 13:45
PROVIDERS: PCP Family Medicine; Visit Provider Family Medicine
DX: R55 Syncope and collapse (principal); I35.0 Nonrheumatic aortic (valve) stenosis; I35.1 Nonrheumatic aortic (valve) insufficiency; I34.0 Nonrheumatic mitral (valve) insufficiency; I07.1 Rheumatic tricuspid insufficiency; I48.20 Chronic atrial fibrillation, unspecified
CPT/HCPCS: 93306

== ENCOUNTER 2025-02-18 11:53 | Outpatient (CLI) | payer MEDICARE, OTHER, SELFPAY | END 2025-02-18 11:54 | disposition home or self-care (01) | LOC: NFLDREF 02-22 07:18 | PROVIDERS: PCP Family Medicine; Referring Provider Family Medicine; Visit Provider Family Medicine | DX: I12.9 Hypertensive chronic kidney disease with stage 1 through stage 4 chronic kidney disease, or unspecified chronic kidney disease (principal); N18.9 Chronic kidney disease, unspecified | CPT/HCPCS: 80048 ==

== ENCOUNTER 2025-03-20 09:59 | Outpatient (CLI) | payer MEDICARE, OTHER, SELFPAY | END 2025-03-20 10:00 | disposition home or self-care (01) | LOC: NFLDREF 03-25 18:40 | PROVIDERS: PCP Family Medicine; Referring Provider Family Medicine; Visit Provider Family Medicine | DX: Z51.81 Encounter for therapeutic drug level monitoring (principal); Z79.01 Long term (current) use of anticoagulants | CPT/HCPCS: 85610 ==

== ENCOUNTER 2025-04-20 14:15 | Outpatient (CLI) | payer MEDICARE, OTHER, SELFPAY | END 2025-04-20 14:16 | disposition home or self-care (01) | LOC: NFLDREF 04-24 14:52 | PROVIDERS: PCP Family Medicine; Referring Provider Family Medicine; Visit Provider Family Medicine | DX: I48.0 Paroxysmal atrial fibrillation (principal) | CPT/HCPCS: 85610 ==

== ENCOUNTER 2025-05-18 10:22 | Outpatient (CLI) | payer MEDICARE, OTHER, SELFPAY | END 2025-05-18 10:23 | disposition home or self-care (01) | LOC: NFLDREF 05-20 16:10 | PROVIDERS: PCP Family Medicine; Referring Provider Family Medicine; Visit Provider Family Medicine | DX: Z51.81 Encounter for therapeutic drug level monitoring (principal); Z79.01 Long term (current) use of anticoagulants | CPT/HCPCS: 85610 ==

== ENCOUNTER 2025-06-01 09:54 | Outpatient (CLI) | payer MEDICARE, OTHER, SELFPAY | END 2025-06-01 09:55 | disposition home or self-care (01) | LOC: NFLDREF 06-12 00:10 | PROVIDERS: PCP Family Medicine; Referring Provider Family Medicine; Visit Provider Family Medicine | DX: Z51.81 Encounter for therapeutic drug level monitoring (principal); Z79.01 Long term (current) use of anticoagulants | CPT/HCPCS: 85610 ==

== ENCOUNTER 2025-06-29 13:49 | Outpatient (CLI) | payer MEDICARE, OTHER, SELFPAY | END 2025-06-29 13:50 | disposition home or self-care (01) | LOC: NFLDREF 07-03 10:55 | PROVIDERS: PCP Family Medicine; Referring Provider Family Medicine; Visit Provider Family Medicine | DX: Z79.01 Long term (current) use of anticoagulants (principal); I48.91 Unspecified atrial fibrillation | CPT/HCPCS: 85610 ==

== ENCOUNTER 2025-07-22 11:22 | Outpatient (CLI) | payer MEDICARE, OTHER, SELFPAY | END 2025-07-22 11:23 | disposition home or self-care (01) | PROVIDERS: PCP Family Medicine; Visit Provider Family Medicine | DX: Z79.01 Long term (current) use of anticoagulants (principal) | CPT/HCPCS: 85610 ==

== ENCOUNTER 2025-08-05 11:18 | Outpatient (CLI) | payer MEDICARE, OTHER, SELFPAY | END 2025-08-05 11:19 | disposition home or self-care (01) | LOC: NFLDREF 08-10 10:32 | PROVIDERS: PCP Family Medicine; Referring Provider Family Medicine; Visit Provider Family Medicine | DX: E78.5 Hyperlipidemia, unspecified (principal); E03.9 Hypothyroidism, unspecified; I48.0 Paroxysmal atrial fibrillation; Z79.01 Long term (current) use of anticoagulants | CPT/HCPCS: 80053; 80061; 84443; 85610 ==